=== PATIENT | male | born 1945 | race Caucasian/White ===

== ENCOUNTER 2016-10-29 15:29 | Emergency (ER) | payer MEDICAID, OTHER ==
[~2016-10-29] VITALS: Ht 172.7 cm; Wt 68.0 kg
--- NOTE | 2016-10-29 15:19 | Emergency Room Report ---
History of Present Illness General Source: Patient, EMS Present Illness HPI Patient is a 71-year-old male sent by [facility] for increased altered level consciousness. Patient prior history of seizure disorder as well as psychosis. Patient was noted to have decreased level consciousness. Patient previously had laboratory testing done which was notable for elevated white blood count as well as evidence of some urinary tract infection. Patient's chronic indwelling San catheter . The patient was brought in by EMS. EKG was performed by EMS which showed tachycardia with a rate in the 120s. The patient was noted to be reportedly less active than previously. Allergies: Coded Allergies: NO KNOWN DRUG ALLERGIES (Unverified Allergy, Unknown, 04/11/14) Patient History Past Medical History: see triage record Reviewed Nursing Documentation: PMH: Agreed, PSxH: Agreed Review of Systems All Other Systems: limited - by mental status Physical Exam Sp02 EP Interpretation: reviewed, normal General Appearance: normal inspection, well appearing, alert, Chronically Ill Head: atraumatic ENT: normal ENT inspection, hearing grossly normal, normal voice Neck: normal inspection, full range of motion, supple, no bony tend Respiratory: normal inspection, lungs clear, normal breath sounds, no respiratory distress, no retraction, no wheezing Cardiovascular #1: regular rate, rhythm, no edema Gastrointestinal: normal inspection, normal bowel sounds, non tender, soft, no guarding, no hernia Genitourinary: no CVA tenderness Musculoskeletal: normal inspection, back normal, normal range of motion Neurologic: normal inspection, alert, responsive, speech normal Psychiatric: normal inspection, judgement/insight normal, mood/affect normal Skin: normal inspection, normal color, no rash Medical Decision Making Diagnostic Impression: Primary Impression: Acute renal insufficiency Additional Impressions: UTI (urinary tract infection) Hyperkalemia ER Course Patient presented for fever. Differential diagnosis included wasn't limited to pneumonia, urinary tract infection, drug fever, allergic reaction, sepsis, cholecystitis, among others.Because of complexity of patient's case laboratory testing and imaging studies were ordered. Laboratory testing was present performed which showed elevated white blood count as well as evidence of urinary tract infection. Patient started on IV antibiotics. The patient given IV fluids.The patient noted have elevated potassium as well as BUN/creatinine. Patient was given Kayexalate by mouth as well as IV calcium. I EKG showed normal sinus rhythm without acute ST or T wave changes. QTC was 457 there is no QRS widening or Twave changes. Labs Test 10/29/16 15:30 10/29/16 16:10 Urine Color Pale yellow Urine Appearance Cloudy Urine pH 8 (4.5-8.0) Urine Specific [place] 1.015 (1.005-1.035) Urine Protein 4+ (NEGATIVE) Urine Glucose (UA) 1+ (NEGATIVE) Urine Ketones Negative (NEGATIVE) Urine Occult Blood 5+ (NEGATIVE) Urine Nitrite Negative (NEGATIVE) Urine Bilirubin Negative (NEGATIVE) Urine Urobilinogen Normal MG/DL (0.0-1.0) Urine Leukocyte Esterase 3+ (NEGATIVE) Urine RBC 40-60 /HPF (0 - 0) Urine WBC 60-80 /HPF (0 - 0) Urine Squamous Epithelial Cells None /LPF (NONE/OCC) Urine Amorphous Sediment Few /LPF (NONE) Urine Bacteria Many /HPF (NONE) White Blood Count 21.5 K/UL (4.8-10.8) Red Blood Count 4.39 M/UL (4.70-6.10) Hemoglobin 12.8 G/DL (14.2-18.0) Hematocrit 39.7 % (42.0-52.0) Mean Corpuscular Volume 90 FL (80-99) Mean Corpuscular Hemoglobin 29.2 PG (27.0-31.0) Mean Corpuscular Hemoglobin Concent 32.3 G/DL (32.0-36.0) Red Cell Distribution Width 11.5 % (11.6-14.8) Platelet Count 756 K/UL (150-450) Mean Platelet Volume 5.3 FL (6.5-10.1) Neutrophils (%) (Auto) % (45.0-75.0) Lymphocytes (%) (Auto) % (20.0-45.0) Monocytes (%) (Auto) % (1.0-10.0) Eosinophils (%) (Auto) % (0.0-3.0) Basophils (%) (Auto) % (0.0-2.0) Differential Total Cells Counted 100 Neutrophils % (Manual) 76 % (45-75) Lymphocytes % (Manual) 6 % (20-45) Monocytes % (Manual) 4 % (1-10) Eosinophils % (Manual) 0 % (0-3) Basophils % (Manual) 0 % (0-2) Band Neutrophils 14 % (0-8) Platelet Estimate Increased Platelet Morphology Normal Red Blood Cell Morphology Normal Sodium Level 133 mEQ/L (135-145) Potassium Level 6.5 mEQ/L (3.4-4.9) Chloride Level 97 mEQ/L (98-107) Carbon Dioxide Level 17 mEQ/L (20-30) Anion Gap 19 (5-15) Blood Urea Nitrogen 102 mg/dL (7-23) Creatinine 4.8 mg/dL (0.7-1.2) Estimat Glomerular Filtration Rate 12.1 mL/min (>60) Glucose Level 257 mg/dL (74-106) Lactic Acid Level 1.80 mmol/L (0.66-2.22) Calcium Level 9.3 mg/dL (8.6-10.2) Total Bilirubin 0.2 mg/dL (0.0-1.2) Aspartate Amino Transf (AST/SGOT) 19 U/L (5-40) Alanine Aminotransferase (ALT/SGPT) 5 U/L (3-41) Alkaline Phosphatase 152 U/L (40-129) Total Creatine Kinase 42 U/L (38-174) Creatine Kinase MB 2.4 ng/mL (< 6.7) Creatine Kinase MB Relative Index 5.7 Troponin I < 0.30 ng/mL (<=0.30) Total Protein 7.4 g/dL (6.6-8.7) Albumin 3.2 g/dL (3.5-5.2) Globulin 4.2 g/dL Albumin/Globulin Ratio 0.7 (1.0-2.7) EKG Diagnostic Results Rate: normal Rhythm: NSR ST Segments: no acute changes Rhythm Strip Diag. Results EP Interpretation: yes Rhythm: NSR, no PVC's Status: improved Disposition: XFER SHT-TRM HOSP Condition: Serious Avel Huerta Oct 29, 2016 15:19
[2016-10-29] MEDS ORDERED: Cefepime HCl 1 GM in NS 55 ML IV SCH (15:30)
[2016-10-29] MEDS ORDERED: metroNIDAZOLE 500mg 100 ML IVPB ONE (15:30)
[2016-10-29 16:10] LABS: APPEARANCE,URINE CLOUDY; KETONES,URINE NEGATIVE (NEGATIVE); LEUKOCYTE ESTERASE ,URINE 3+ (NEGATIVE); NITRITE,URINE NEGATIVE (NEGATIVE); PH,URINE 8 (4.5-8.0); PROTEIN,URINE 4+ (NEGATIVE); UROBILINOGEN,URINE NORMAL MG/DL (0.0-1.0)
[2016-10-29] MEDS ORDERED: Cefepime 1gm vial ONE (16:11)
[2016-10-29 16:26] VITALS: BP 139/98
[2016-10-29] MEDS ORDERED: PRO-STAT LIQUID30 ML ORAL (16:32)
[2016-10-29] MEDS ORDERED: METOPROLOL TART25 MG ORAL (16:32)
[2016-10-29] MEDS ORDERED: DILANTIN100 MG ORAL (16:32)
[2016-10-29] MEDS ORDERED: CATAPRES0.1 MG ORAL (16:32)
[2016-10-29] MEDS ORDERED: NEPHRO-VITE RX1 EAC1 PO (16:32)
[2016-10-29] MEDS ORDERED: BENZTROPINE MESY1 MG PO (16:32)
[2016-10-29] MEDS ORDERED: NUEDEXTA 20-101 EAC1 PO (16:32)
[2016-10-29] MEDS ORDERED: TAMSULOSIN HCL0.4 MG ORAL (16:32)
[2016-10-29] MEDS ORDERED: ARICEPT10 MG ORAL (16:32)
[2016-10-29] MEDS ORDERED: BENEPROTEIN1 EACH PO (16:32)
[2016-10-29] MEDS ORDERED: AMLODIPINE BESY10 MG ORAL (16:32)
[2016-10-29] MEDS ORDERED: COLACE100 MG ORAL (16:32)
[2016-10-29] MEDS ORDERED: ACETAMINOPHEN325 M1 ORAL (16:32)
[2016-10-29] MEDS ORDERED: SINEMET 25-1001 EAC1 ORAL (16:32)
[2016-10-29] MEDS ORDERED: PRAVACHOL40 MG ORAL (16:32)
[2016-10-29] MEDS ORDERED: LANTUS SOL100 UNIT/1 SUBQ (16:32)
[2016-10-29] MEDS ORDERED: HUMALOG100 UNIT/4 SUBQ (16:32)
[2016-10-29] MEDS ORDERED: PROSCAR5 MG ORAL (16:32)
[2016-10-29 16:41] LABS: AMORPHOUS SEDIMENT,UR FEW /LPF; BACTERIA,URINE MANY /HPF; RBC,URINE 40-60 /HPF (0 - 0); WBC,URINE 60-80 /HPF (0 - 0)
[2016-10-29 16:44] LABS: MEAN CORPUSCULAR HEMOGLOBIN 29.2 PG (27.0-31.0); MEAN CORPUSCULAR HGB CONC 32.3 G/DL (32.0-36.0); MEAN CORPUSCULAR VOLUME 90 FL (80-99); MEAN PLATELET VOLUME 5.3 FL (6.5-10.1); PLATELET COUNT 756 K/UL (150-450); RED BLOOD COUNT 4.39 M/UL (4.70-6.10); RED CELL DISTRIBUTION WIDTH 11.5 % (11.6-14.8); WHITE BLOOD COUNT 21.5 K/UL (4.8-10.8)
[2016-10-29 16:55] LABS: TROPONIN I < 0.30 ng/mL (<=0.30)
[2016-10-29 16:58] LABS: ALBUMIN/GLOBULIN RATIO 0.7 (1.0-2.7); CALCIUM 9.3 mg/dL (8.6-10.2); CREATININE 4.8 mg/dL (0.7-1.2); GLOMERULAR FILTRATION RATE 12.1 mL/min (>60); TOTAL PROTEIN 7.4 g/dL (6.6-8.7)
[2016-10-29 17:00] LABS: POTASSIUM 6.5 mEQ/L (3.4-4.9)
[2016-10-29 17:08] LABS: CKMB 2.4 ng/mL (< 6.7)
[2016-10-29] MEDS ORDERED: Sodium Bicarbonate 50ml Carp IV ONE (17:30)
[2016-10-29] MEDS ORDERED: Calcium Gluconate 1gm/10ml vial IVP ONE (17:30)
[2016-10-29] MEDS ORDERED: Sodium Polystyrene Sulfonate 15gm Powder ORAL ONE (17:30)
[2016-10-29 17:35] LABS: BAND NEUTROPHILS % (MANUAL) 14 % (0-8); LYMPHOCYTES % (MANUAL) 6 % (20-45); NEUTROPHILS % (MANUAL) 76 % (45-75); PLATELET MORPHOLOGY NORMAL; TOTAL CELLS COUNTED 100
[2016-10-29 17:36] LABS: BASOPHILS % (MANUAL) 0 % (0-2); EOSINOPHILS % (MANUAL) 0 % (0-3); PLATELET ESTIMATE INCREASED
[2016-10-29 18:15] VITALS: BP 126/62
[2016-10-29 19:38] VITALS: BP 123/63
--- NOTE | 2016-11-02 18:36 | Cardiology Report ---
APPROVED REPORT EKG Measurement Heart [id number] VA [id number] [id number] Sinus tachycardia Left axis deviation Nonspecific ST and T wave abnormality Abnormal ECG
== END 2016-10-29 19:08 | disposition short-term general hospital (02) ==
LOC: EDBD 15:29 → EMR 16:07
DX: N28.9 Disorder of kidney and ureter, unspecified (principal); N39.0 Urinary tract infection, site not specified; E87.5 Hyperkalemia
CPT/HCPCS: 36415; 71010; 80053; 81003; 82550; 82553; 83605; 84484; 85007; 85025; 87040; 87086; 87181; 93005; 96374; 96375; 99285; J0610

== ENCOUNTER 2018-05-17 20:59 | Inpatient (IN) | payer MEDICARE, MEDICAID ==
[~2018-05-17] VITALS: Ht 167.6 cm; Wt 77.7 kg
[~2018-05-17 20:59] MED LIST: ACETAMINOPHEN325 M1 ORAL; AMLODIPINE BESY10 MG ORAL; ARICEPT10 MG ORAL; BENEPROTEIN1 EACH PO; BENZTROPINE MESY1 MG PO; CATAPRES0.1 MG ORAL; COLACE100 MG ORAL; DILANTIN100 MG ORAL; HUMALOG100 UNIT/4 SUBQ; LANTUS SOL100 UNIT/1 SUBQ; METOPROLOL TART25 MG ORAL; NEPHRO-VITE RX1 EAC1 PO; NUEDEXTA 20-101 EAC1 PO; PRAVACHOL40 MG ORAL; PRO-STAT LIQUID30 ML ORAL; PROSCAR5 MG ORAL; SINEMET 25-1001 EAC1 ORAL; TAMSULOSIN HCL0.4 MG ORAL
[2018-05-17 21:09] VITALS: BP 160/78
--- NOTE | 2018-05-17 21:12 | NUR ---
ED Nurse Note: Pt needs San cath replacement. no abnormalities noted on penis. bladder is not distended and not palpable. pt vital signs is stable, pt O2 is 99% on room air.
[2018-05-17] MEDS ORDERED: LORazepam Inj 2mg/ml 1ml IV ONE (21:45)
--- NOTE | 2018-05-17 22:10 | NUR ---
ED Nurse Note: Unable to insert weathers x 2; last one with Coude.
--- NOTE | 2018-05-17 22:11 | Emergency Room Report ---
History of Present Illness General Chief Complaint: Male Urogenital Problems Source: Patient, Medical Record, EMS Present Illness HPI This is a 73-year-old male with psychiatric history and BPH. He was sent in for urinary retention. correction unable to pass a San because of obstructive process. He had a history of gross hematuria before. Patient denies any symptom. History is limited on this patient because of his psychiatric issue. He denies any pain. Denies any fever chills. Denies any nausea or vomiting. Allergies: Coded Allergies: NO KNOWN DRUG ALLERGIES (Unverified Allergy, Unknown, 04/11/14) Patient History Past Medical History: see triage record, old chart reviewed, HTN, seizures Past Surgical History: other Pertinent Family History: none Social History: Denies: smoking Immunizations: other Reviewed Nursing Documentation: PMH: Agreed; PSxH: Agreed Nursing Documentation-PMH Hx Hypertension: Yes Hx COPD: Yes Hx Diabetes: Yes Hx Neurological Problems: Yes - Parkinsons disease Hx Seizures: Yes - epilepsy Review of Systems Eye: Denies: eye pain, blurred vision ENT: Denies: ear pain, nose congestion, throat swelling Respiratory: Denies: cough, shortness of breath Cardiovascular: Denies: chest pain, palpitations Gastrointestinal: Denies: abdominal pain, diarrhea, nausea, vomiting Genitourinary: Reports: retention Musculoskeletal: Denies: back pain, joint pain Skin: Denies: rash Neurological: Denies: headache, numbness Endocrine: Denies: increased thirst, increased urine Hematologic/Lymphatic: Denies: easy bruising All Other Systems: negative except mentioned in HPI Physical Exam Vital Signs Date Time Temp Pulse Resp B/P (MAP) Pulse Ox O2 Delivery O2 Flow Rate FiO2 05/17/18 21:03 98.6 88 18 173/79 95 Room Air vitals with high blood pressure Sp02 EP Interpretation: reviewed, normal General Appearance: well appearing, no apparent distress, alert Head: normocephalic, atraumatic Eyes: bilateral eye PERRL, bilateral eye EOMI ENT: hearing grossly normal, normal pharynx Neck: full range of motion, supple, no meningismus Respiratory: chest non-tender, lungs clear, normal breath sounds Cardiovascular #1: regular rate, rhythm, no murmur Gastrointestinal: normal bowel sounds, non tender, no mass, no organomegaly, no bruit, non-distended Musculoskeletal: back normal, gait/station normal, normal range of motion Psychiatric: mood/affect normal Skin: warm/dry Medical Decision Making Diagnostic Impression: Primary Impression: Acute urinary retention Additional Impressions: Prostate hypertrophy CKD (chronic kidney disease) Qualified Codes: N18.9 - Chronic kidney disease, unspecified ER Course Patient presents with urinary retention. Probably secondary to large prostate. Nursing staff here try several times and nitrites over time placing a San with different size and coud also. This was unsuccessful. Patient does not appear to be any distress. I condom catheter was placed. Patient will be admitted for urology consult. I discussed the case with Dr. Brown's group for admission. Last Vital Signs Date Time Temp Pulse Resp B/P (MAP) Pulse Ox O2 Delivery O2 Flow Rate FiO2 05/17/18 21:09 98.6 68 18 160/78 95 Room Air Status: improved Disposition: ADMITTED INPATIENT Condition: Serious Remi Norris MD May 17, 2018 22:11
[2018-05-17 22:50] LABS: BASOPHILS % (AUTO) 1.5 % (0.0-2.0); EOSINOPHILS % (AUTO) 5.5 % (0.0-3.0); HEMATOCRIT 32.2 % (42.0-52.0); HEMOGLOBIN 10.7 G/DL (14.2-18.0); LYMPHOCYTES % (AUTO) 16.1 % (20.0-45.0); MEAN CORPUSCULAR VOLUME 92 FL (80-99); MONOCYTES % (AUTO) 10.4 % (1.0-10.0); NEUTROPHILS % (AUTO) 66.5 % (45.0-75.0); PLATELET COUNT 318 K/UL (150-450); RED BLOOD COUNT 3.48 M/UL (4.70-6.10); RED CELL DISTRIBUTION WIDTH 12.7 % (11.6-14.8); WHITE BLOOD COUNT 10.9 K/UL (4.8-10.8)
[2018-05-17 22:56] VITALS: BP 155/73
[2018-05-17 22:58] LABS: ANION GAP 12 mmol/L (5-15); BLOOD UREA NITROGEN 73 mg/dL (7-18); CALCIUM 7.7 MG/DL (8.5-10.1); CARBON DIOXIDE 19 MMOL/L (21-32); CHLORIDE 102 MMOL/L (98-107); CREATININE 2.5 MG/DL (0.55-1.30); POTASSIUM 4.6 MMOL/L (3.5-5.1); SODIUM 133 MMOL/L (136-145)
--- NOTE | 2018-05-17 23:00 | NUR ---
ED Nurse Note: pt became verbally abusive while MD and RN tried inserting folly and coude catherter. pt stated, "what the fuck are you guys doing?" MD and RN attempt unsucessful. MD ordered condom catherter. Pt is alert and oriented to person but is able to respond to questions and follow commands. no abnormalities noted to skin. pt is able to move all extremities with no complications. abdominal area appears to be distended, MD is aware. RN will continue to reassess output for urine.
[2018-05-18] VITALS (7 sets, daily range): BP systolic 135–160; BP diastolic 70–89
[2018-05-18] MEDS ORDERED: COLACE100 MG ORAL (00:50)
[2018-05-18] MEDS ORDERED: DEPAKOTE125 MG PO (00:51)
[2018-05-18] MEDS ORDERED: DILANTIN100 MG ORAL (00:52)
[2018-05-18] MEDS ORDERED: TAMSULOSIN HCL0.4 MG ORAL (00:53)
[2018-05-18] MEDS ORDERED: LANTUS SOL100 UNIT/1 SUBQ (00:54)
[2018-05-18] MEDS ORDERED: METOPROLOL-HCT1 EAC3 ORAL (00:55)
[2018-05-18] MEDS ORDERED: NOVOLIN 70100 UNIT/1 SUBQ (00:56)
[2018-05-18] MEDS ORDERED: RENA-VITE TABL0.8 M1 PO (00:57)
[2018-05-18] MEDS ORDERED: RESOURCE 2.0237 ML PO (00:58)
--- NOTE | 2018-05-18 02:31 | NUR ---
ED Nurse Note: pt is transfered to MED SURG with PARAM ORDONEZ. pt status, condition and vital signs is reported to ERMD and receving RN. pt is stable for transfer. pt transfered with all belongings.
--- NOTE | 2018-05-18 03:30 | NUR ---
NURSE NOTES: Received patient from ER via gurney, no s/s acute distress noted. Pt is awake and alert to name, able to answer questions, and follows command but confused at times. Noted condom catheter with hematuria. Pt denies any pain or discomfort. Skin is intact. Seizure and fall precaution initiated. Educated to use call light for assistance. Paged Dr Alejandro for admit order.
[2018-05-18] MEDS: NovoLOG Insulin Flexpen SUBQ SCH ×4 (06:20→20:45)
--- NOTE | 2018-05-18 06:35 | NUR ---
NURSE NOTES: Noted kermit urine output 300ml on condom catheter. Post void residual done, showed 350ml. Made MD aware.
--- NOTE | 2018-05-18 07:20 | NUR ---
HAND-OFF: Report given to Marge VIRGEN.
--- NOTE | 2018-05-18 07:50 | NUR ---
NURSE NOTES: Patient received in stable condition, breathing unlabored on room air. No catheter insertion necessary per Dr. Deshpande. Seizure precaution and safety precautions maintained. IV site on right arm patent and intact. Call light placed within reach, bed locked in low position, will continue to monitor.
[2018-05-18] MEDS ORDERED: Tamsulosin 0.4mg cap ORAL SCH ×2 (08:15→21:00)
[2018-05-18] MEDS: Docusate 100mg cap ORAL SCH (08:36)
[2018-05-18] MEDS: Phenytoin 100mg cap ORAL SCH ×3 (08:36→18:02)
[2018-05-18] MEDS: Benztropine 1mg tab ORAL SCH ×2 (08:37→18:02)
[2018-05-18] MEDS: Metoprolol 25mg tab ORAL SCH ×2 (08:37→20:41)
[2018-05-18] MEDS: Levodopa/Carbidopa 25/100 tab ORAL SCH ×3 (08:37→18:02)
[2018-05-18] MEDS: Piperacillin/Tazobactam 3.375 GM in D5W 110 ML IVPB SCH ×2 (12:09→23:34)
--- NOTE | 2018-05-18 15:15 | Consultation ---
DATE OF CONSULTATION: 05/18/2018 CONSULTING PHYSICIAN: Pio Deshpande M.D. REFERRING PHYSICIAN: Anthony Alejandro M.D. REASON FOR CONSULTATION: Evaluation of hematuria. HISTORY OF PRESENT ILLNESS: This is a 73-year-old male with extensive psychiatric history. He is a resident of a alf. Apparently, there were some issues with urinary retention and difficulty placing a San catheter. The patient was referred to the emergency room. He was noted to have some hematuria and I am not sure if this is because of San trauma, but they were not able to place San and Urology evaluation was requested. Currently, the patient is on the floor. He looks comfortable. He has been voiding. His urine is clearing. He had a condom catheter. I am not able to get any of the history from him. PAST MEDICAL HISTORY: Again significant for psychiatric issues, hypertension, COPD, diabetes, Parkinson's, and seizure disorder. PAST SURGICAL HISTORY: Unknown. MEDICATIONS: Medications are Pravachol, Flomax, Norvasc, Cogentin, Sinemet, Colace, Proscar, Lopressor, Dilantin, and insulin. ALLERGIES: No known drug allergies. FAMILY HISTORY: Unable to obtain. REVIEW OF SYSTEMS: Unable to obtain. PHYSICAL EXAMINATION: GENERAL: Elderly male, confused. VITAL SIGNS: Temperature is 97.6 and blood pressure is 165/74. HEENT: Normocephalic. NECK: Supple. ABDOMEN: Soft. There is minimal suprapubic fullness. LABORATORY DATA: White count is 10.9, hemoglobin 10.7, BUN is 72, creatinine 2.5, and potassium 4.6. There is no urinalysis. There is no renal imaging study. IMPRESSION: 1. Urinary retention history. 2. BPH history. 3. Neurogenic bladder. 4. Hematuria. 5. Acute kidney injury. 6. Probable chronic kidney disease. PLAN: I did evaluate the patient at the bedside. I did a bladder scan by myself and the PVR was 209 mL. He did have a condom catheter with the urine in the bag, basically clearing. The patient is very confused. He has psychiatric history. I do not recommend placing a San at this time because most likely, he will pull it out. His residuals are acceptable. I would continue with Flomax and increase it to b.i.d. I also continue with finasteride. I will also add antibiotics in case there is a component of prostatitis. We can consider renal imaging study and cystoscopy in the future. The case was discussed with Dr. Alejandro. Thank you for this consultation. Pio Deshpande M.D. DR: KEVIN JOB#: [id number] CC:
[2018-05-18] MEDS: Tamsulosin 0.4mg cap ORAL SCH (18:02)
--- NOTE | 2018-05-18 19:36 | NUR ---
HAND-OFF: Report given to Caridad VIRGEN.
--- NOTE | 2018-05-18 19:48 | NUR ---
NURSE NOTES: Patient in bed asleep, easily arousable to name, no s/s distress noted. Bed in lowest position for safety. Call light within reach.
[2018-05-18 20:06] LABS: APPEARANCE,URINE CLOUDY; BILIRUBIN, URINE NEGATIVE (NEGATIVE); COLOR,URINE PALE YELLOW; GLUCOSE, URINE (UA) NEGATIVE (NEGATIVE); KETONES,URINE NEGATIVE (NEGATIVE); LEUKOCYTE ESTERASE ,URINE 3+ (NEGATIVE); NITRITE,URINE POSITIVE (NEGATIVE); PH,URINE 5 (4.5-8.0); PROTEIN,URINE 4+ (NEGATIVE); UROBILINOGEN,URINE NORMAL MG/DL (0.0-1.0)
--- NOTE | 2018-05-18 23:30 | History and Physical Report ---
DATE OF ADMISSION: 05/18/2018 CHIEF COMPLAINT: Hematuria. HISTORY OF PRESENT ILLNESS: The patient is a 73-year-old male. He has a history of dementia, psychosis, diabetes, and hypertension. He was transferred from a long-term facility with complaints of hematuria. The patient apparently has a history of MS. He is confused at baseline. He is unable to provide any history. On evaluation in the emergency room, the patient was noted to have bright red blood in his urinalysis. The ER physician attempted to place a San catheter, but this was unsuccessful. A condom catheter was placed. The patient has . He is now admitted for further evaluation for hematuria. PAST MEDICAL HISTORY: As above. He has a history of Parkinson disease, questionable MS, and questionable seizure disorder. CURRENT MEDICATIONS: Reconciled and reviewed. ALLERGIES: None. FAMILY HISTORY: None. SOCIAL HISTORY: There is no known history of tobacco, ethanol, or drugs. REVIEW OF SYSTEMS: From the patient is unobtainable as he is confused. PHYSICAL EXAMINATION: VITAL SIGNS: Temperature 98, pulse 72, respirations 15, and blood pressure 135/70. GENERAL: The patient is well-developed male, in apparent distress. He is currently resting. NECK: Supple. HEART: Regular rate and rhythm. LUNGS: Clear. ABDOMEN: Soft, nontender, and nondistended. EXTREMITIES: Without clubbing, cyanosis, or edema. NEUROLOGIC: The patient is unable to comply with neurologic exam. LABORATORY DATA: White count 11, hemoglobin 10, hematocrit 32, platelet count 318,000. Sodium 138, potassium 4.6, chloride 103, bicarb 19, BUN 73, and creatinine 2.5. A1c was 7.6. ASSESSMENT: This is an elderly male with a history of psychosis, , questionable MS, hypertension, diabetes, hematuria, suspect due to urinary tract infection. PLAN: Urology consultation. monitor urine output. Empiric antibiotic therapy. Follow up urine studies. Continue outpatient seizure regimen. Anxiolytics as needed. Anthony Alejandro M.D. DR: CAITY JOB#: [id number] CC:
[2018-05-19] VITALS: BP 127/77
[2018-05-19 04:00] VITALS: BP 130/77
[2018-05-19] MEDS: NovoLOG Insulin Flexpen SUBQ SCH ×4 (06:30→21:04)
--- NOTE | 2018-05-19 07:20 | NUR ---
HAND-OFF: Report given to Marge VIRGEN.
--- NOTE | 2018-05-19 07:26 | General Progress Note ---
Assessment/Plan Problem List: (1) CKD (chronic kidney disease) ICD Codes: N18.9 - Chronic kidney disease, unspecified SNOMED: 563084489 Qualifiers: Qualified Codes: N18.9 - Chronic kidney disease, unspecified (2) Prostate hypertrophy ICD Codes: N40.0 - Benign prostatic hyperplasia without lower urinary tract symptoms SNOMED: 237871781 (3) Acute renal insufficiency ICD Codes: N28.9 - Disorder of kidney and ureter, unspecified SNOMED: 46859806 (4) Leukocytosis ICD Codes: D72.829 - Elevated white blood cell count, unspecified SNOMED: 894613138 (5) UTI (urinary tract infection) ICD Codes: N39.0 - Urinary tract infection, site not specified SNOMED: 37200758 (6) Acute hyponatremia ICD Codes: E87.1 - Hypo-osmolality and hyponatremia SNOMED: 8099027 (7) Hematuria, gross ICD Codes: R31.0 - Gross hematuria SNOMED: 107058915 (8) Acute urinary retention ICD Codes: R33.8 - Other retention of urine SNOMED: 524910094 Status: stable, progressing Assessment/Plan iv abx follow up cultures monitor for bleeding scd Subjective ROS Limited/Unobtainable: No Constitutional: Reports: malaise, weakness HEENT: Reports: no symptoms Cardiovascular: Reports: no symptoms Respiratory: Reports: no symptoms Gastrointestinal/Abdominal: Reports: no symptoms Genitourinary: Reports: hematuria Neurologic/Psychiatric: Reports: anxiety Endocrine: Reports: no symptoms Hematologic/Lymphatic: Reports: no symptoms Allergies: Coded Allergies: NO KNOWN DRUG ALLERGIES (Unverified Allergy, Unknown, 04/11/14) All Systems: reviewed and negative except above Subjective no events. no more bleeding. UA with tntc wbc Objective Last 24 Hour Vital Signs Date Time Temp Pulse Resp B/P (MAP) Pulse Ox O2 Delivery O2 Flow Rate FiO2 05/19/18 04:00 98.1 71 18 130/77 (94) 98 05/19/18 00:00 98.6 98 18 127/77 (94) 95 05/18/18 21:00 Room Air 05/18/18 20:41 78 152/89 05/18/18 20:00 98.9 78 18 152/89 (110) 96 05/18/18 16:00 97.6 80 20 155/86 (109) 98 05/18/18 12:00 97.1 75 19 160/89 (112) 97 05/18/18 09:00 Room Air 05/18/18 08:37 86 155/74 05/18/18 08:36 86 155/74 05/18/18 08:00 97.9 81 20 142/77 (98) 99 Intake and Output 05/18/18 05/19/18 19:00 07:00 Intake Total 860 ml 470.0 ml Output Total 950 ml Balance 860 ml -480.0 ml Intake Oral 860 ml 360 ml IV Total 110.0 ml Output Urine Total 950 ml # Voids 7 # Bowel Movements 1 Laboratory Tests 05/18/18 08:00: Hemoglobin A1c 7.6H 05/18/18 18:15: Urine Color Pale yellow, Urine Appearance Cloudy, Urine pH 5, Urine Specific [place] 1.015, Urine Protein 4+H, Urine Glucose (UA) Negative, Urine Ketones Negative, Urine Blood 3+H, Urine Nitrite PositiveH, Urine Bilirubin Negative, Urine Urobilinogen Normal, Urine Leukocyte Esterase 3+H, Urine RBC 0-2H, Urine WBC TntcH, Urine Squamous Epithelial Cells None, Urine Bacteria ManyH Height (Feet): 5 Height (Inches): 6.00 Weight (Pounds): 171 General Appearance: WD/WN, alert Neck: supple Cardiovascular: regular rhythm Respiratory/Chest: lungs clear Abdomen: normal bowel sounds, non tender, soft, no organomegaly Edema: no edema noted Arm (L), no edema noted Arm (R), no edema noted Leg (L), no edema noted Leg (R), no edema noted Pedal (L), no edema noted Pedal (R), no edema noted Generalized Neurologic: alert Anthony Alejandro MD May 19, 2018 07:26
--- NOTE | 2018-05-19 07:42 | NUR ---
NURSE NOTES: Patient received in stable condition, sleeping in bed. Breathing unlabored on room air, no s/s of respiratory distress or pain observed. IV patent and intact on right arm. Voiding freely with condom catheter. Bed locked in lowest position, seizure precautions maintained. Call light placed within reach, will continue to monitor.
[2018-05-19 08:00] VITALS: BP 160/87
[2018-05-19] MEDS: Benztropine 1mg tab ORAL SCH ×2 (08:53→17:01)
[2018-05-19] MEDS: Phenytoin 100mg cap ORAL SCH ×3 (08:53→17:01)
[2018-05-19] MEDS: Metoprolol 25mg tab ORAL SCH ×2 (08:53→21:01)
[2018-05-19] MEDS: Tamsulosin 0.4mg cap ORAL SCH ×2 (08:54→17:01)
[2018-05-19] MEDS: Levodopa/Carbidopa 25/100 tab ORAL SCH ×3 (08:54→17:01)
[2018-05-19] MEDS: Docusate 100mg cap ORAL SCH (08:54)
--- NOTE | 2018-05-19 10:12 | Urology Progress Note ---
Assessment/Plan Assessment/Plan 1. Urinary retention history. 2. BPH history. 3. Neurogenic bladder. 4. Hematuria. 5. Acute kidney injury. 6. Probable chronic kidney disease. 7. Possible chronic prostatitis. monitor clinically cont flomax bid and proscar abx as ordered would prefer to avoid weathers cysto later consider renal imaging study monitor renal fxn Subjective Allergies: Coded Allergies: NO KNOWN DRUG ALLERGIES (Unverified Allergy, Unknown, 04/11/14) Subjective all noted, pt has been voiding, urine grossly yellow by report Objective Last 24 Hour Vital Signs Date Time Temp Pulse Resp B/P (MAP) Pulse Ox O2 Delivery O2 Flow Rate FiO2 05/19/18 09:00 Room Air 05/19/18 08:54 71 130/77 05/19/18 08:53 71 130/77 05/19/18 08:00 97.9 70 19 160/87 (111) 99 05/19/18 04:00 98.1 71 18 130/77 (94) 98 05/19/18 00:00 98.6 98 18 127/77 (94) 95 05/18/18 21:00 Room Air 05/18/18 20:41 78 152/89 05/18/18 20:00 98.9 78 18 152/89 (110) 96 05/18/18 16:00 97.6 80 20 155/86 (109) 98 05/18/18 12:00 97.1 75 19 160/89 (112) 97 Intake and Output 05/18/18 05/19/18 19:00 07:00 Intake Total 860 ml 470.0 ml Output Total 950 ml Balance 860 ml -480.0 ml Intake Oral 860 ml 360 ml IV Total 110.0 ml Output Urine Total 950 ml # Voids 7 # Bowel Movements 1 Microbiology Date/Time Source Procedure Growth Status 05/18/18 01:08 Rectum Received Current Medications Medications (Trade) Dose Ordered Sig/Thu Route PRN Reason Start Time Stop Time Status Last Admin Dose Admin Acetaminophen (Tylenol) 650 mg EVERY 8 HOURS PRN ORAL For Pain 05/18/18 05:15 06/17/18 05:14 Amlodipine Besylate (Norvasc) 10 mg DAILY ORAL 05/18/18 09:00 06/17/18 08:59 05/19/18 08:54 Benztropine Mesylate (Cogentin) 1 mg BID ORAL 05/18/18 09:00 06/17/18 08:59 05/19/18 08:53 Carbidopa/Levodopa (Sinemet 25/100) 1 tab THREE TIMES A DAY ORAL 05/18/18 09:00 06/17/18 08:59 05/19/18 08:54 Dextrose (Dextrose 50%) 25 ml Q30M PRN IV Hypoglycemia 05/18/18 05:30 06/17/18 05:29 Dextrose (Dextrose 50%) 50 ml Q30M PRN IV Hypoglycemia 05/18/18 05:30 06/17/18 05:29 Docusate Sodium (Colace) 100 mg DAILY ORAL 05/18/18 09:00 06/17/18 08:59 05/19/18 08:54 Doxycycline Monohydrate (Vibramycin) 100 mg EVERY 12 HOURS ORAL 05/18/18 09:00 05/25/18 08:59 05/19/18 08:54 Finasteride (Proscar) 5 mg DAILY ORAL 05/18/18 09:00 06/17/18 08:59 05/19/18 08:54 Insulin Aspart (NovoLOG) BEFORE MEALS AND HS SUBQ 05/18/18 06:30 06/17/18 06:29 05/18/18 20:45 Metoprolol Tartrate (Lopressor) 75 mg EVERY 12 HOURS ORAL 05/18/18 09:00 06/17/18 08:59 05/19/18 08:53 Phenytoin (Dilantin) 100 mg THREE TIMES A DAY ORAL 05/18/18 09:00 06/17/18 08:59 05/19/18 08:53 Piperacillin Sod/ Tazobactam Sod 3.375 gm/Dextrose 110 ml @ 27.5 mls/hr Q12H IVPB 05/18/18 12:00 05/25/18 11:59 05/18/18 23:34 Pravastatin Sodium (Pravachol) 80 mg BEDTIME ORAL 05/18/18 21:00 06/17/18 20:59 05/18/18 20:40 Tamsulosin HCl (Flomax) 0.4 mg TWICE A DAY ORAL 05/18/18 18:00 06/17/18 17:59 05/19/18 08:54 Laboratory Tests 05/18/18 18:15: Urine Color Pale yellow, Urine Appearance Cloudy, Urine pH 5, Urine Specific [place] 1.015, Urine Protein 4+H, Urine Glucose (UA) Negative, Urine Ketones Negative, Urine Blood 3+H, Urine Nitrite PositiveH, Urine Bilirubin Negative, Urine Urobilinogen Normal, Urine Leukocyte Esterase 3+H, Urine RBC 0-2H, Urine WBC TntcH, Urine Squamous Epithelial Cells None, Urine Bacteria ManyH Height (Feet): 5 Height (Inches): 6.00 Weight (Pounds): 171 Objective exam stable Pio Deshpande MD May 19, 2018 10:12
[2018-05-19 12:00] VITALS: BP 139/80
[2018-05-19] MEDS: Piperacillin/Tazobactam 3.375 GM in D5W 110 ML IVPB SCH (12:36)
[2018-05-19 16:00] VITALS: BP 120/86
--- NOTE | 2018-05-19 19:29 | NUR ---
HAND-OFF: Report given to Cherry Gallo.
--- NOTE | 2018-05-19 19:54 | NUR ---
NURSE NOTES: Patient in bed,awake, verbally responsive. IV in place. No s/s respiratory distress noted. No complaints of pain at this time. Bed in lowest position, call light within reach. Will continue to monitor.
[2018-05-19 20:00] VITALS: BP 142/79
--- NOTE | 2018-05-19 20:34 | NUR ---
CASE MANAGEMENT: INITIAL REVIEW 73 YO M YIMI FROM [facility] CC: MALE UROGENITAL PROBLEMS PMHx: COPD. HTN. SZ. SI:URINARY RETENTION. T 98.6 HR 88 RR 18 B/P 173/79 SATS 95% ON RA WBC 10.9 NA 133 CO2 19 BUN 73 CR 2.5 GLUCOSE 184 CA 7.7 IS: ATIVAN IV X1 PATIENT ADMITTED TO MED/SURG 05/18/2018 @ 0107 DCP: PATIENT TO BE DISCHARGED TO SNF ONCE MEDICALLY CLEARED. PLAN OF CARE: UROLOGY CONSULT
[2018-05-20] MEDS: Piperacillin/Tazobactam 3.375 GM in D5W 110 ML IVPB SCH ×3 (00:33→23:41)
[2018-05-20 00:36] VITALS: BP 137/67
[2018-05-20 04:00] VITALS: BP 143/80
--- NOTE | 2018-05-20 06:00 | NUR ---
NURSE NOTES: PATIENT ASLEEP, V/S STABLE.
[2018-05-20] MEDS: NovoLOG Insulin Flexpen SUBQ SCH ×4 (06:07→21:51)
--- NOTE | 2018-05-20 07:23 | NUR ---
HAND-OFF: Report given to RUSH GHOSH RN.
--- NOTE | 2018-05-20 07:25 | NUR ---
NURSE NOTES: Pt received from PARAM Carey alert and oriented x2, requiring frequent reorientation. No s/s of acute distress, advised pt to stay in bed and to use call light to avoid falls, pt verbalized understanding. IV site asymptomatic and patent, on saline lock. Bed in lowest position, call light and belongings within reach.
[2018-05-20 08:00] VITALS: BP 150/85
--- NOTE | 2018-05-20 08:48 | General Progress Note ---
Assessment/Plan Problem List: (1) CKD (chronic kidney disease) ICD Codes: N18.9 - Chronic kidney disease, unspecified SNOMED: 969931048 Qualifiers: Qualified Codes: N18.9 - Chronic kidney disease, unspecified (2) Prostate hypertrophy ICD Codes: N40.0 - Benign prostatic hyperplasia without lower urinary tract symptoms SNOMED: 525586559 (3) Acute renal insufficiency ICD Codes: N28.9 - Disorder of kidney and ureter, unspecified SNOMED: 35571051 (4) Leukocytosis ICD Codes: D72.829 - Elevated white blood cell count, unspecified SNOMED: 441704020 (5) UTI (urinary tract infection) ICD Codes: N39.0 - Urinary tract infection, site not specified SNOMED: 49199332 (6) Acute hyponatremia ICD Codes: E87.1 - Hypo-osmolality and hyponatremia SNOMED: 7334208 (7) Hematuria, gross ICD Codes: R31.0 - Gross hematuria SNOMED: 506407436 (8) Acute urinary retention ICD Codes: R33.8 - Other retention of urine SNOMED: 139091229 Status: stable Assessment/Plan iv abx follow up cultures monitor for bleeding scd can dc on abx once sensitivity back on GNR Subjective ROS Limited/Unobtainable: No Constitutional: Reports: malaise, weakness HEENT: Reports: no symptoms Cardiovascular: Reports: no symptoms Respiratory: Reports: no symptoms Gastrointestinal/Abdominal: Reports: no symptoms Genitourinary: Reports: no symptoms Neurologic/Psychiatric: Reports: anxiety Endocrine: Reports: no symptoms Hematologic/Lymphatic: Reports: anemia Allergies: Coded Allergies: NO KNOWN DRUG ALLERGIES (Unverified Allergy, Unknown, 04/11/14) All Systems: reviewed and negative except above Subjective no events. no more bleeding. UA with tntc wbc. +GNR in urine Objective Last 24 Hour Vital Signs Date Time Temp Pulse Resp B/P (MAP) Pulse Ox O2 Delivery O2 Flow Rate FiO2 05/20/18 04:00 98.0 67 18 143/80 (101) 97 05/20/18 00:36 98.7 69 18 137/67 (90) 97 05/19/18 22:09 Room Air 05/19/18 21:01 79 142/79 05/19/18 20:00 98.4 75 18 142/79 (100) 98 05/19/18 16:00 97.7 86 19 120/86 (97) 97 05/19/18 12:00 98.8 64 18 139/80 (99) 98 05/19/18 09:00 Room Air 05/19/18 08:54 71 130/77 05/19/18 08:53 71 130/77 Intake and Output 05/19/18 05/20/18 19:00 07:00 Intake Total 350 ml 230.0 ml Output Total 400 ml 650 ml Balance -50 ml -420.0 ml Intake Oral 350 ml 120 ml IV Total 110.0 ml Output Urine Total 400 ml 650 ml # Bowel Movements 1 Height (Feet): 5 Height (Inches): 6.00 Weight (Pounds): 171 Objective General Appearance: WD/WN, alert Neck: supple Cardiovascular: regular rhythm Respiratory/Chest: lungs clear Abdomen: normal bowel sounds, non tender, soft, no organomegaly Edema: no edema noted Arm (L), no edema noted Arm (R), no edema noted Leg (L), no edema noted Leg (R), no edema noted Pedal (L), no edema noted Pedal (R), no edema noted Generalized Neurologic: alert Anthony Alejandro MD May 20, 2018 08:48
[2018-05-20] MEDS: Phenytoin 100mg cap ORAL SCH ×3 (08:53→17:29)
[2018-05-20] MEDS: Benztropine 1mg tab ORAL SCH ×2 (08:53→17:28)
[2018-05-20] MEDS: Levodopa/Carbidopa 25/100 tab ORAL SCH ×3 (08:53→17:28)
[2018-05-20] MEDS: Tamsulosin 0.4mg cap ORAL SCH ×2 (08:53→17:29)
[2018-05-20] MEDS: Docusate 100mg cap ORAL SCH (08:53)
[2018-05-20] MEDS: Metoprolol 25mg tab ORAL SCH ×2 (08:54→21:49)
--- NOTE | 2018-05-20 10:57 | Urology Progress Note ---
Assessment/Plan Assessment/Plan 1. Urinary retention history. 2. BPH history. 3. Neurogenic bladder. 4. Hematuria. 5. Acute kidney injury. 6. Probable chronic kidney disease. 7. Possible chronic prostatitis. monitor clinically cont flomax bid and proscar abx as ordered would prefer to avoid weathers cysto later consider renal imaging study monitor renal fxn Subjective Allergies: Coded Allergies: NO KNOWN DRUG ALLERGIES (Unverified Allergy, Unknown, 04/11/14) Subjective all noted, pt has been voiding, urine grossly yellow by report, condom cath Objective Last 24 Hour Vital Signs Date Time Temp Pulse Resp B/P (MAP) Pulse Ox O2 Delivery O2 Flow Rate FiO2 05/20/18 08:54 70 160/85 05/20/18 08:53 70 160/85 05/20/18 04:00 98.0 67 18 143/80 (101) 97 05/20/18 00:36 98.7 69 18 137/67 (90) 97 05/19/18 22:09 Room Air 05/19/18 21:01 79 142/79 05/19/18 20:00 98.4 75 18 142/79 (100) 98 05/19/18 16:00 97.7 86 19 120/86 (97) 97 05/19/18 12:00 98.8 64 18 139/80 (99) 98 Intake and Output 05/19/18 05/20/18 19:00 07:00 Intake Total 350 ml 230.0 ml Output Total 400 ml 650 ml Balance -50 ml -420.0 ml Intake Oral 350 ml 120 ml IV Total 110.0 ml Output Urine Total 400 ml 650 ml # Bowel Movements 1 Microbiology Date/Time Source Procedure Growth Status 05/18/18 01:08 Nasal Nares MRSA Culture - Final NO METHICILLIN RESISTANT STAPH AUREUS... Complete 05/18/18 18:15 Urine,Clean Catch Urine Culture - Preliminary Gram Negative Carlin Resulted 05/18/18 01:08 Rectum - Final NO CARBAPENEM-RESISTANT ENTEROBACTERI... Complete Current Medications Medications (Trade) Dose Ordered Sig/Thu Route PRN Reason Start Time Stop Time Status Last Admin Dose Admin Acetaminophen (Tylenol) 650 mg EVERY 8 HOURS PRN ORAL For Pain 05/18/18 05:15 06/17/18 05:14 Amlodipine Besylate (Norvasc) 10 mg DAILY ORAL 05/18/18 09:00 06/17/18 08:59 05/20/18 08:53 Benztropine Mesylate (Cogentin) 1 mg BID ORAL 05/18/18 09:00 06/17/18 08:59 05/20/18 08:53 Carbidopa/Levodopa (Sinemet 25/100) 1 tab THREE TIMES A DAY ORAL 05/18/18 09:00 06/17/18 08:59 05/20/18 08:53 Dextrose (Dextrose 50%) 25 ml Q30M PRN IV Hypoglycemia 05/18/18 05:30 06/17/18 05:29 Dextrose (Dextrose 50%) 50 ml Q30M PRN IV Hypoglycemia 05/18/18 05:30 06/17/18 05:29 Docusate Sodium (Colace) 100 mg DAILY ORAL 05/18/18 09:00 06/17/18 08:59 05/20/18 08:53 Doxycycline Monohydrate (Vibramycin) 100 mg EVERY 12 HOURS ORAL 05/18/18 09:00 05/25/18 08:59 05/20/18 08:53 Finasteride (Proscar) 5 mg DAILY ORAL 05/18/18 09:00 06/17/18 08:59 05/20/18 08:54 Insulin Aspart (NovoLOG) BEFORE MEALS AND HS SUBQ 05/18/18 06:30 06/17/18 06:29 05/19/18 21:04 Metoprolol Tartrate (Lopressor) 75 mg EVERY 12 HOURS ORAL 05/18/18 09:00 06/17/18 08:59 05/20/18 08:54 Phenytoin (Dilantin) 100 mg THREE TIMES A DAY ORAL 05/18/18 09:00 06/17/18 08:59 05/20/18 08:53 Piperacillin Sod/ Tazobactam Sod 3.375 gm/Dextrose 110 ml @ 27.5 mls/hr Q12H IVPB 05/18/18 12:00 05/25/18 11:59 05/20/18 00:33 Pravastatin Sodium (Pravachol) 80 mg BEDTIME ORAL 05/18/18 21:00 06/17/18 20:59 05/19/18 21:00 Tamsulosin HCl (Flomax) 0.4 mg TWICE A DAY ORAL 05/18/18 18:00 06/17/18 17:59 05/20/18 08:53 Height (Feet): 5 Height (Inches): 6.00 Weight (Pounds): 171 Objective exam stable Pio Deshpande MD May 20, 2018 10:57
[2018-05-20 12:00] VITALS: BP 142/80
[2018-05-20 16:00] VITALS: BP 148/85
--- NOTE | 2018-05-20 19:45 | NUR ---
HAND-OFF: Report given to PARAM Carey.
[2018-05-20 20:00] VITALS: BP 149/79
--- NOTE | 2018-05-20 22:41 | NUR ---
NURSE NOTES: Patient in bed,awake, verbally responsive, alert to name, needs frequent reorientation. Received patient with no IV access, will attempt at a later time. No s/s respiratory distress noted. No complaints of pain at this time. Bed in lowest position, call light within reach. Will continue to monitor.
[2018-05-21] VITALS (7 sets, daily range): BP systolic 135–160; BP diastolic 56–88
[2018-05-21] MEDS: NovoLOG Insulin Flexpen SUBQ SCH ×4 (05:33→21:25)
--- NOTE | 2018-05-21 06:55 | NUR ---
NURSE NOTES: PATIENT REFUSED NEW IV ACCESS YELLING "STOP! GET OUT OF MY ROOM! GO AWAY!" CHARGE NURSE AWARE. LEFT MESSAGE FOR DR. JOSHUA.
--- NOTE | 2018-05-21 07:40 | NUR ---
NURSE NOTES: Received patient on bed, awake. Portcath intact and patent. Bed in low and locked position,c all light in reach. No signs of respiratory distress. Patient complains of pain will give PRN medication. Room board updated, will continue to monitor. Addendum: 05/21/18 at 1935 by TEDDY MCADAMS RN RN Disregard note, wrong patient.
--- NOTE | 2018-05-21 07:40 | NUR ---
NURSE NOTES: Received patient on bed, awake. No IV access. Bed in low and locked position, call light in reach. No signs of respiratory distress or pain. Room board updated, will continue to monitor.
[2018-05-21] MEDS ORDERED: LEVOFLOXACIN250 MG ORAL (08:01)
--- NOTE | 2018-05-21 08:02 | General Progress Note ---
Assessment/Plan Problem List: (1) CKD (chronic kidney disease) ICD Codes: N18.9 - Chronic kidney disease, unspecified SNOMED: 571115755 Qualifiers: Qualified Codes: N18.9 - Chronic kidney disease, unspecified (2) Prostate hypertrophy ICD Codes: N40.0 - Benign prostatic hyperplasia without lower urinary tract symptoms SNOMED: 117751759 (3) Acute renal insufficiency ICD Codes: N28.9 - Disorder of kidney and ureter, unspecified SNOMED: 56980287 (4) Leukocytosis ICD Codes: D72.829 - Elevated white blood cell count, unspecified SNOMED: 654702325 (5) UTI (urinary tract infection) ICD Codes: N39.0 - Urinary tract infection, site not specified SNOMED: 68381512 (6) Acute hyponatremia ICD Codes: E87.1 - Hypo-osmolality and hyponatremia SNOMED: 1242698 (7) Hematuria, gross ICD Codes: R31.0 - Gross hematuria SNOMED: 903397367 (8) Acute urinary retention ICD Codes: R33.8 - Other retention of urine SNOMED: 573116448 Status: stable Assessment/Plan iv abx follow up cultures monitor for bleeding scd dc planning if labs ok po abx at snf Subjective ROS Limited/Unobtainable: No Constitutional: Reports: malaise, weakness HEENT: Reports: no symptoms Cardiovascular: Reports: no symptoms Respiratory: Reports: no symptoms Gastrointestinal/Abdominal: Reports: no symptoms Genitourinary: Reports: no symptoms Neurologic/Psychiatric: Reports: anxiety Endocrine: Reports: no symptoms Hematologic/Lymphatic: Reports: no symptoms Allergies: Coded Allergies: NO KNOWN DRUG ALLERGIES (Unverified Allergy, Unknown, 04/11/14) All Systems: reviewed and negative except above Subjective no events. no more bleeding. UA with tntc wbc. Ucx results noted. Objective Last 24 Hour Vital Signs Date Time Temp Pulse Resp B/P (MAP) Pulse Ox O2 Delivery O2 Flow Rate FiO2 05/21/18 04:58 98.0 77 20 159/83 (108) 98 05/21/18 00:37 98.8 74 20 136/69 (91) 95 05/20/18 22:40 Room Air 05/20/18 21:49 85 149/79 05/20/18 20:00 99.0 85 20 149/79 (102) 96 05/20/18 16:00 97.9 77 20 148/85 (106) 95 05/20/18 12:00 98.6 71 19 142/80 (100) 97 05/20/18 09:00 Room Air 05/20/18 08:54 70 160/85 05/20/18 08:53 70 160/85 Intake and Output 05/20/18 05/21/18 19:00 07:00 Intake Total 690.0 ml Output Total 300 ml 1200 ml Balance 390.0 ml -1200 ml Intake Oral 580 ml IV Total 110.0 ml Output Urine Total 300 ml 1200 ml # Bowel Movements 1 1 Height (Feet): 5 Height (Inches): 6.00 Weight (Pounds): 171 Objective General Appearance: WD/WN, alert Neck: supple Cardiovascular: regular rhythm Respiratory/Chest: lungs clear Abdomen: normal bowel sounds, non tender, soft, no organomegaly Edema: no edema noted Arm (L), no edema noted Arm (R), no edema noted Leg (L), no edema noted Leg (R), no edema noted Pedal (L), no edema noted Pedal (R), no edema noted Generalized Neurologic: alert Anthony Alejandro MD May 21, 2018 08:02
--- NOTE | 2018-05-21 09:19 | Urology Progress Note ---
Assessment/Plan Assessment/Plan 1. Urinary retention history. 2. BPH history. 3. Neurogenic bladder. 4. Hematuria. 5. Acute kidney injury. 6. Probable chronic kidney disease. 7. Possible chronic prostatitis. monitor clinically cont flomax bid and proscar abx as ordered would prefer to avoid weathers cysto later consider renal imaging study monitor renal fxn Subjective Allergies: Coded Allergies: NO KNOWN DRUG ALLERGIES (Unverified Allergy, Unknown, 04/11/14) Subjective all noted, pt has been voiding, urine grossly yellow by report, condom cath Objective Last 24 Hour Vital Signs Date Time Temp Pulse Resp B/P (MAP) Pulse Ox O2 Delivery O2 Flow Rate FiO2 05/21/18 08:00 97.3 71 17 160/88 (112) 98 05/21/18 04:58 98.0 77 20 159/83 (108) 98 05/21/18 00:37 98.8 74 20 136/69 (91) 95 05/20/18 22:40 Room Air 05/20/18 21:49 85 149/79 05/20/18 20:00 99.0 85 20 149/79 (102) 96 05/20/18 16:00 97.9 77 20 148/85 (106) 95 05/20/18 12:00 98.6 71 19 142/80 (100) 97 Intake and Output 05/20/18 05/21/18 18:59 06:59 Intake Total 690.0 ml Output Total 300 ml 1200 ml Balance 390.0 ml -1200 ml Intake Oral 580 ml IV Total 110.0 ml Output Urine Total 300 ml 1200 ml # Bowel Movements 1 1 Microbiology Date/Time Source Procedure Growth Status 05/18/18 01:08 Nasal Nares MRSA Culture - Final NO METHICILLIN RESISTANT STAPH AUREUS... Complete 05/18/18 18:15 Urine,Clean Catch Urine Culture - Preliminary Enterobacter Aerogenes Klebsiella Pneumoniae Resulted 05/18/18 01:08 Rectum - Final NO CARBAPENEM-RESISTANT ENTEROBACTERI... Complete Current Medications Medications (Trade) Dose Ordered Sig/Thu Route PRN Reason Start Time Stop Time Status Last Admin Dose Admin Acetaminophen (Tylenol) 650 mg EVERY 8 HOURS PRN ORAL For Pain 05/18/18 05:15 06/17/18 05:14 Amlodipine Besylate (Norvasc) 10 mg DAILY ORAL 05/18/18 09:00 06/17/18 08:59 05/20/18 08:53 Benztropine Mesylate (Cogentin) 1 mg BID ORAL 05/18/18 09:00 06/17/18 08:59 05/20/18 17:28 Carbidopa/Levodopa (Sinemet 25/100) 1 tab THREE TIMES A DAY ORAL 05/18/18 09:00 06/17/18 08:59 05/20/18 17:28 Dextrose (Dextrose 50%) 25 ml Q30M PRN IV Hypoglycemia 05/18/18 05:30 06/17/18 05:29 Dextrose (Dextrose 50%) 50 ml Q30M PRN IV Hypoglycemia 05/18/18 05:30 06/17/18 05:29 Docusate Sodium (Colace) 100 mg DAILY ORAL 05/18/18 09:00 06/17/18 08:59 05/20/18 08:53 Doxycycline Monohydrate (Vibramycin) 100 mg EVERY 12 HOURS ORAL 05/18/18 09:00 05/25/18 08:59 05/20/18 21:48 Finasteride (Proscar) 5 mg DAILY ORAL 05/18/18 09:00 06/17/18 08:59 05/20/18 08:54 Insulin Aspart (NovoLOG) BEFORE MEALS AND HS SUBQ 05/18/18 06:30 06/17/18 06:29 05/20/18 21:51 Metoprolol Tartrate (Lopressor) 75 mg EVERY 12 HOURS ORAL 05/18/18 09:00 06/17/18 08:59 05/20/18 21:49 Phenytoin (Dilantin) 100 mg THREE TIMES A DAY ORAL 05/18/18 09:00 06/17/18 08:59 05/20/18 17:29 Piperacillin Sod/ Tazobactam Sod 3.375 gm/Dextrose 110 ml @ 27.5 mls/hr Q12H IVPB 05/18/18 12:00 05/25/18 11:59 05/20/18 13:25 Pravastatin Sodium (Pravachol) 80 mg BEDTIME ORAL 05/18/18 21:00 06/17/18 20:59 05/20/18 21:49 Tamsulosin HCl (Flomax) 0.4 mg TWICE A DAY ORAL 05/18/18 18:00 06/17/18 17:59 05/20/18 17:29 Height (Feet): 5 Height (Inches): 6.00 Weight (Pounds): 171 Objective exam stable Pio Deshpande MD May 21, 2018 09:19
[2018-05-21] MEDS: Metoprolol 25mg tab ORAL SCH ×2 (09:41→21:22)
[2018-05-21] MEDS: Benztropine 1mg tab ORAL SCH ×2 (09:42→17:12)
[2018-05-21] MEDS: Phenytoin 100mg cap ORAL SCH ×3 (09:43→17:12)
[2018-05-21] MEDS: Levodopa/Carbidopa 25/100 tab ORAL SCH ×3 (09:43→17:13)
[2018-05-21] MEDS: Tamsulosin 0.4mg cap ORAL SCH ×2 (09:44→17:12)
[2018-05-21] MEDS: Docusate 100mg cap ORAL SCH (09:45)
[2018-05-21] MEDS: Piperacillin/Tazobactam 3.375 GM in D5W 110 ML IVPB SCH ×2 (13:38→23:54)
--- NOTE | 2018-05-21 19:32 | NUR ---
HAND-OFF: Report given to PARAM Carey.
--- NOTE | 2018-05-21 20:04 | NUR ---
NURSE NOTES: Patient in bed,asleep. Received patient with no IV access, will attempt at a later time. No s/s respiratory distress noted. No s/s pain. Bed in lowest position, call light within reach. Will continue to monitor.
[2018-05-22 00:23] VITALS: BP 130/82
[2018-05-22 04:00] VITALS: BP 159/80
[2018-05-22] MEDS: NovoLOG Insulin Flexpen SUBQ SCH ×4 (05:46→20:58)
--- NOTE | 2018-05-22 06:39 | NUR ---
NURSE NOTES: NO DISTRESS, AWAKE.
--- NOTE | 2018-05-22 07:18 | NUR ---
HAND-OFF: Report given to RENE MERCADO RN.
--- NOTE | 2018-05-22 07:30 | NUR ---
NURSE NOTES: Patient awake, verbal, confused; on room air, no sign of shortness of breath and chest pain. Side rails padded for seizure percussion. Condom cath in place drains by gravity well. IV RFA salen lock, flushes well. Bed at lowest position, side rails up x2 and breaks engaged. Call light within reach. Will keep monitoring.
[2018-05-22 08:00] VITALS: BP 161/88
--- NOTE | 2018-05-22 09:08 | Urology Progress Note ---
Assessment/Plan Assessment/Plan 1. Urinary retention history. 2. BPH history. 3. Neurogenic bladder. 4. Hematuria. 5. Acute kidney injury. 6. Probable chronic kidney disease. 7. Possible chronic prostatitis. monitor clinically cont flomax bid and proscar abx as ordered would prefer to avoid weathers cysto later consider renal imaging study monitor renal fxn check PVR PRN Subjective Allergies: Coded Allergies: NO KNOWN DRUG ALLERGIES (Unverified Allergy, Unknown, 04/11/14) Subjective all noted, pt has been voiding, urine grossly yellow by report, condom cath Objective Last 24 Hour Vital Signs Date Time Temp Pulse Resp B/P (MAP) Pulse Ox O2 Delivery O2 Flow Rate FiO2 05/22/18 04:00 98.1 71 17 159/80 (106) 96 05/22/18 00:23 98.2 78 17 130/82 (98) 96 05/21/18 21:52 Room Air 05/21/18 21:22 80 152/86 05/21/18 20:00 98.0 80 17 152/86 (108) 95 05/21/18 16:00 97.7 69 18 135/56 (82) 98 05/21/18 16:00 97.7 73 17 142/87 (105) 96 05/21/18 12:00 98.2 67 16 153/87 (109) 96 05/21/18 11:38 97.3 71 17 160/88 (112) 98 05/21/18 09:44 71 160/88 05/21/18 09:41 71 160/88 Intake and Output 05/21/18 05/22/18 19:00 07:00 Intake Total 470.0 ml 230.0 ml Output Total 1000 ml Balance 470.0 ml -770.0 ml Intake Oral 360 ml 120 ml IV Total 110.0 ml 110.0 ml Output Urine Total 1000 ml Microbiology Date/Time Source Procedure Growth Status 05/18/18 01:08 Nasal Nares MRSA Culture - Final NO METHICILLIN RESISTANT STAPH AUREUS... Complete 05/18/18 18:15 Urine,Clean Catch Urine Culture - Final Enterobacter Aerogenes Klebsiella Pneumoniae Complete 05/18/18 01:08 Rectum - Final NO CARBAPENEM-RESISTANT ENTEROBACTERI... Complete Current Medications Medications (Trade) Dose Ordered Sig/Thu Route PRN Reason Start Time Stop Time Status Last Admin Dose Admin Acetaminophen (Tylenol) 650 mg EVERY 8 HOURS PRN ORAL For Pain 05/18/18 05:15 06/17/18 05:14 Amlodipine Besylate (Norvasc) 10 mg DAILY ORAL 05/18/18 09:00 06/17/18 08:59 05/21/18 09:44 Benztropine Mesylate (Cogentin) 1 mg BID ORAL 05/18/18 09:00 06/17/18 08:59 05/21/18 17:12 Carbidopa/Levodopa (Sinemet 25/100) 1 tab THREE TIMES A DAY ORAL 05/18/18 09:00 06/17/18 08:59 05/21/18 17:13 Dextrose (Dextrose 50%) 25 ml Q30M PRN IV Hypoglycemia 05/18/18 05:30 06/17/18 05:29 Dextrose (Dextrose 50%) 50 ml Q30M PRN IV Hypoglycemia 05/18/18 05:30 06/17/18 05:29 Docusate Sodium (Colace) 100 mg DAILY ORAL 05/18/18 09:00 06/17/18 08:59 05/21/18 09:45 Doxycycline Monohydrate (Vibramycin) 100 mg EVERY 12 HOURS ORAL 05/18/18 09:00 05/25/18 08:59 05/21/18 21:23 Finasteride (Proscar) 5 mg DAILY ORAL 05/18/18 09:00 06/17/18 08:59 05/21/18 09:41 Insulin Aspart (NovoLOG) BEFORE MEALS AND HS SUBQ 05/18/18 06:30 06/17/18 06:29 05/21/18 21:25 Metoprolol Tartrate (Lopressor) 75 mg EVERY 12 HOURS ORAL 05/18/18 09:00 06/17/18 08:59 05/21/18 21:22 Phenytoin (Dilantin) 100 mg THREE TIMES A DAY ORAL 05/18/18 09:00 06/17/18 08:59 05/21/18 17:12 Piperacillin Sod/ Tazobactam Sod 3.375 gm/Dextrose 110 ml @ 27.5 mls/hr Q12H IVPB 05/18/18 12:00 05/25/18 11:59 05/21/18 23:54 Pravastatin Sodium (Pravachol) 80 mg BEDTIME ORAL 05/18/18 21:00 06/17/18 20:59 05/21/18 21:23 Tamsulosin HCl (Flomax) 0.4 mg TWICE A DAY ORAL 05/18/18 18:00 06/17/18 17:59 05/21/18 17:12 Height (Feet): 5 Height (Inches): 6.00 Weight (Pounds): 171 Objective exam stable Pio Deshpande MD May 22, 2018 09:08
[2018-05-22] MEDS: Benztropine 1mg tab ORAL SCH ×2 (09:23→17:04)
[2018-05-22] MEDS: Docusate 100mg cap ORAL SCH (09:24)
[2018-05-22] MEDS: Tamsulosin 0.4mg cap ORAL SCH ×2 (09:24→17:05)
[2018-05-22] MEDS: Levodopa/Carbidopa 25/100 tab ORAL SCH ×3 (09:24→17:05)
[2018-05-22] MEDS: Metoprolol 25mg tab ORAL SCH ×2 (09:24→20:55)
[2018-05-22] MEDS: Phenytoin 100mg cap ORAL SCH ×3 (09:24→17:05)
--- NOTE | 2018-05-22 10:31 | General Progress Note ---
Assessment/Plan Problem List: (1) CKD (chronic kidney disease) ICD Codes: N18.9 - Chronic kidney disease, unspecified SNOMED: 322372633 Qualifiers: Qualified Codes: N18.9 - Chronic kidney disease, unspecified (2) Prostate hypertrophy ICD Codes: N40.0 - Benign prostatic hyperplasia without lower urinary tract symptoms SNOMED: 368206182 (3) Acute renal insufficiency ICD Codes: N28.9 - Disorder of kidney and ureter, unspecified SNOMED: 88354078 (4) Leukocytosis ICD Codes: D72.829 - Elevated white blood cell count, unspecified SNOMED: 646036282 (5) UTI (urinary tract infection) ICD Codes: N39.0 - Urinary tract infection, site not specified SNOMED: 49083988 (6) Acute hyponatremia ICD Codes: E87.1 - Hypo-osmolality and hyponatremia SNOMED: 2330989 (7) Hematuria, gross ICD Codes: R31.0 - Gross hematuria SNOMED: 460834268 (8) Acute urinary retention ICD Codes: R33.8 - Other retention of urine SNOMED: 528260980 Status: stable, progressing Assessment/Plan iv abx adjusted monitor for bleeding scd dc planning if labs ok po abx at snf Subjective ROS Limited/Unobtainable: No Constitutional: Reports: malaise, weakness HEENT: Reports: no symptoms Cardiovascular: Reports: no symptoms Respiratory: Reports: no symptoms Gastrointestinal/Abdominal: Reports: no symptoms Genitourinary: Reports: no symptoms Neurologic/Psychiatric: Reports: anxiety, emotional problems, seizure Endocrine: Reports: no symptoms Hematologic/Lymphatic: Reports: no symptoms Allergies: Coded Allergies: NO KNOWN DRUG ALLERGIES (Unverified Allergy, Unknown, 04/11/14) All Systems: reviewed and negative except above Subjective no events. no more bleeding. UA with tntc wbc. Ucx results noted. Objective Last 24 Hour Vital Signs Date Time Temp Pulse Resp B/P (MAP) Pulse Ox O2 Delivery O2 Flow Rate FiO2 05/22/18 09:24 79 161/88 05/22/18 09:24 79 161/88 05/22/18 09:00 Room Air 05/22/18 08:00 98.1 79 18 161/88 (112) 98 05/22/18 04:00 98.1 71 17 159/80 (106) 96 05/22/18 00:23 98.2 78 17 130/82 (98) 96 05/21/18 21:52 Room Air 05/21/18 21:22 80 152/86 05/21/18 20:00 98.0 80 17 152/86 (108) 95 05/21/18 16:00 97.7 69 18 135/56 (82) 98 05/21/18 16:00 97.7 73 17 142/87 (105) 96 05/21/18 12:00 98.2 67 16 153/87 (109) 96 05/21/18 11:38 97.3 71 17 160/88 (112) 98 Intake and Output 05/21/18 05/22/18 19:00 07:00 Intake Total 470.0 ml 230.0 ml Output Total 1000 ml Balance 470.0 ml -770.0 ml Intake Oral 360 ml 120 ml IV Total 110.0 ml 110.0 ml Output Urine Total 1000 ml Height (Feet): 5 Height (Inches): 6.00 Weight (Pounds): 171 Objective General Appearance: WD/WN, alert Neck: supple Cardiovascular: regular rhythm Respiratory/Chest: lungs clear Abdomen: normal bowel sounds, non tender, soft, no organomegaly Edema: no edema noted Arm (L), no edema noted Arm (R), no edema noted Leg (L), no edema noted Leg (R), no edema noted Pedal (L), no edema noted Pedal (R), no edema noted Generalized Neurologic: alert Anthony Alejandro MD May 22, 2018 10:31
[2018-05-22] MEDS: cefTRIAXone 1 GM in D5W 55 ML IVPB SCH (11:52)
[2018-05-22 12:00] VITALS: BP 152/95
[2018-05-22 12:54] LABS: BASOPHILS % (AUTO) 1.3 % (0.0-2.0); EOSINOPHILS % (AUTO) 2.5 % (0.0-3.0); HEMATOCRIT 35.3 % (42.0-52.0); HEMOGLOBIN 11.8 G/DL (14.2-18.0); LYMPHOCYTES % (AUTO) 11.6 % (20.0-45.0); MEAN CORPUSCULAR VOLUME 92 FL (80-99); MONOCYTES % (AUTO) 6.6 % (1.0-10.0); PLATELET COUNT 333 K/UL (150-450); RED BLOOD COUNT 3.86 M/UL (4.70-6.10); RED CELL DISTRIBUTION WIDTH 12.8 % (11.6-14.8); WHITE BLOOD COUNT 10.5 K/UL (4.8-10.8)
[2018-05-22 13:08] LABS: ALANINE AMINOTRANSFERASE 7 U/L (12-78); ALBUMIN 2.5 G/DL (3.4-5.0); ALBUMIN/GLOBULIN RATIO 0.5 (1.0-2.7); ALKALINE PHOSPHATASE 194 U/L (46-116); ANION GAP 13 mmol/L (5-15); ASPARTATE AMINO TRANSFERASE 33 U/L (15-37); BILIRUBIN,TOTAL 0.2 MG/DL (0.2-1.0); BLOOD UREA NITROGEN 67 mg/dL (7-18); CALCIUM 7.6 MG/DL (8.5-10.1); CARBON DIOXIDE 19 MMOL/L (21-32); CHLORIDE 102 MMOL/L (98-107); CREATININE 2.6 MG/DL (0.55-1.30); POTASSIUM 4.8 MMOL/L (3.5-5.1); SODIUM 134 MMOL/L (136-145)
--- NOTE | 2018-05-22 14:23 | NUR ---
CHARGE NURSE NOTE: Nile 7.9. Dr. Alejandro was called, message left.
[2018-05-22] MEDS ORDERED: Tubing IV Secondary IV ONE (15:45)
[2018-05-22] MEDS ORDERED: NS 275ml ONE (15:45)
[2018-05-22 16:00] VITALS: BP 157/96
--- NOTE | 2018-05-22 19:27 | NUR ---
HAND-OFF: Report given to PARAM Addison.
[2018-05-22 20:00] VITALS: BP 147/85
[2018-05-23] VITALS: BP 152/88
[2018-05-23 04:00] VITALS: BP 150/94
[2018-05-23] MEDS: NovoLOG Insulin Flexpen SUBQ SCH ×3 (06:18→17:08)
--- NOTE | 2018-05-23 07:04 | NUR ---
HAND-OFF: Report given to Meeta VIRGEN.
--- NOTE | 2018-05-23 07:23 | NUR ---
NURSE NOTES: Patient awake and confused, patient yells on care givers; on room air, no sign of distress and shortness of breath; no chest pain; Condom cath in place drains clear yellow urine; side rails padded for seizure percussion; bed at lowest position, breaks engaged. Will check blood sugar as schedules and will give insulin pen as ordered. Call light within reach. Will keep monitoring.
--- NOTE | 2018-05-23 07:27 | NUR ---
NURSE NOTES: IV on RFA runs NS TKO. Will keep monitoring.
[2018-05-23 08:00] VITALS: BP 173/73
--- NOTE | 2018-05-23 08:58 | NUR ---
*-* DISCHARGE PLANNING *-* PATIENT HAS BEEN REFERRED BACK TO: [facility] P:[phone] F:[phone]
[2018-05-23] MEDS: Tamsulosin 0.4mg cap ORAL SCH ×2 (09:00→17:31)
[2018-05-23] MEDS: Phenytoin 100mg cap ORAL SCH ×3 (09:20→17:31)
[2018-05-23] MEDS: Docusate 100mg cap ORAL SCH (09:20)
[2018-05-23] MEDS: Levodopa/Carbidopa 25/100 tab ORAL SCH ×3 (09:20→17:31)
[2018-05-23] MEDS: Benztropine 1mg tab ORAL SCH ×2 (09:20→17:31)
[2018-05-23] MEDS: Metoprolol 25mg tab ORAL SCH (09:21)
--- NOTE | 2018-05-23 11:43 | Urology Progress Note ---
Assessment/Plan Assessment/Plan 1. Urinary retention history. 2. BPH history. 3. Neurogenic bladder. 4. Hematuria. 5. Acute kidney injury. 6. Probable chronic kidney disease. 7. Possible chronic prostatitis. monitor clinically cont flomax bid and proscar abx as ordered would prefer to avoid weathers cysto later consider renal imaging study monitor renal fxn, stable check PVR PRN Subjective Allergies: Coded Allergies: NO KNOWN DRUG ALLERGIES (Unverified Allergy, Unknown, 04/11/14) Subjective all noted, pt has been voiding, urine grossly yellow by report, condom cath Objective Last 24 Hour Vital Signs Date Time Temp Pulse Resp B/P (MAP) Pulse Ox O2 Delivery O2 Flow Rate FiO2 05/23/18 09:21 76 173/73 05/23/18 09:20 76 173/73 05/23/18 09:00 Room Air 05/23/18 08:00 97.8 76 18 173/73 (106) 97 05/23/18 04:00 97.6 72 19 150/94 (112) 96 05/23/18 00:00 97.3 18 152/88 (109) 97 05/22/18 21:00 Room Air 05/22/18 20:55 72 147/85 05/22/18 20:00 98.6 72 18 147/85 (105) 97 05/22/18 16:00 97.1 78 19 157/96 (116) 97 05/22/18 12:00 98.3 70 19 152/95 (114) 95 Intake and Output 05/22/18 05/23/18 19:00 07:00 Intake Total 480 ml Balance 480 ml Intake Oral 480 ml # Voids 6 # Bowel Movements 1 Microbiology Date/Time Source Procedure Growth Status 05/18/18 01:08 Nasal Nares MRSA Culture - Final NO METHICILLIN RESISTANT STAPH AUREUS... Complete 05/18/18 18:15 Urine,Clean Catch Urine Culture - Final Enterobacter Aerogenes Klebsiella Pneumoniae Complete 05/18/18 01:08 Rectum - Final NO CARBAPENEM-RESISTANT ENTEROBACTERI... Complete Current Medications Medications (Trade) Dose Ordered Sig/Thu Route PRN Reason Start Time Stop Time Status Last Admin Dose Admin Acetaminophen (Tylenol) 650 mg EVERY 8 HOURS PRN ORAL For Pain 05/18/18 05:15 06/17/18 05:14 Amlodipine Besylate (Norvasc) 10 mg DAILY ORAL 05/18/18 09:00 06/17/18 08:59 05/23/18 09:20 Benztropine Mesylate (Cogentin) 1 mg BID ORAL 05/18/18 09:00 06/17/18 08:59 05/23/18 09:20 Carbidopa/Levodopa (Sinemet 25/100) 1 tab THREE TIMES A DAY ORAL 05/18/18 09:00 06/17/18 08:59 05/23/18 09:20 Ceftriaxone Sodium 1 gm/ Dextrose 55 ml @ 110 mls/hr Q24H IVPB 05/22/18 12:00 05/29/18 11:59 05/22/18 11:52 Dextrose (Dextrose 50%) 25 ml Q30M PRN IV Hypoglycemia 05/18/18 05:30 06/17/18 05:29 Dextrose (Dextrose 50%) 50 ml Q30M PRN IV Hypoglycemia 05/18/18 05:30 06/17/18 05:29 Docusate Sodium (Colace) 100 mg DAILY ORAL 05/18/18 09:00 06/17/18 08:59 05/23/18 09:20 Doxycycline Monohydrate (Vibramycin) 100 mg EVERY 12 HOURS ORAL 05/18/18 09:00 05/25/18 08:59 05/23/18 09:20 Finasteride (Proscar) 5 mg DAILY ORAL 05/18/18 09:00 06/17/18 08:59 05/23/18 09:20 Insulin Aspart (NovoLOG) BEFORE MEALS AND HS SUBQ 05/18/18 06:30 06/17/18 06:29 05/23/18 06:18 Metoprolol Tartrate (Lopressor) 75 mg EVERY 12 HOURS ORAL 05/18/18 09:00 06/17/18 08:59 05/23/18 09:21 Phenytoin (Dilantin) 100 mg THREE TIMES A DAY ORAL 05/18/18 09:00 06/17/18 08:59 05/23/18 09:20 Pravastatin Sodium (Pravachol) 80 mg BEDTIME ORAL 05/18/18 21:00 06/17/18 20:59 05/22/18 20:55 Tamsulosin HCl (Flomax) 0.4 mg TWICE A DAY ORAL 05/18/18 18:00 06/17/18 17:59 05/22/18 17:05 Laboratory Tests 05/22/18 12:00: White Blood Count 10.5, Red Blood Count 3.86L, Hemoglobin 11.8L, Hematocrit 35.3L, Mean Corpuscular Volume 92, Mean Corpuscular Hemoglobin 30.6, Mean Corpuscular Hemoglobin Concent 33.4, Red Cell Distribution Width 12.8, Platelet Count 333, Mean Platelet Volume 6.3L, Neutrophils (%) (Auto) 78.0H, Lymphocytes (%) (Auto) 11.6L, Monocytes (%) (Auto) 6.6, Eosinophils (%) (Auto) 2.5, Basophils (%) (Auto) 1.3, Sodium Level 134L, Potassium Level 4.8, Chloride Level 102, Carbon Dioxide Level 19L, Anion Gap 13, Blood Urea Nitrogen 67H, Creatinine 2.6H, Estimat Glomerular Filtration Rate , Glucose Level 157H, Calcium Level 7.6L, Total Bilirubin 0.2, Aspartate Amino Transf (AST/SGOT) 33, Alanine Aminotransferase (ALT/SGPT) 7L, Alkaline Phosphatase 194H, Total Protein 7.6, Albumin 2.5L, Globulin 5.1, Albumin/Globulin Ratio 0.5L, Phenytoin (Dilantin) Level 7.9L Height (Feet): 5 Height (Inches): 6.00 Weight (Pounds): 171 Objective exam stable Pio Deshpande MD May 23, 2018 11:43
[2018-05-23 12:00] VITALS: BP 160/89
[2018-05-23] MEDS: cefTRIAXone 1 GM in D5W 55 ML IVPB SCH (12:13)
--- NOTE | 2018-05-23 15:30 | NUR ---
*-* DISCHARGE PLANNING *-* PATIENT IS DISCHARGED TO: [facility] ROOM# 238-C INTERMEDIATE T:[phone] FOR NURSE TO NURSE REPORT [facility] HAS BEEN ARRANGED FOR WHEEL ADJUSTER AT [address] JOSEFA [id number]
[2018-05-23 16:00] VITALS: BP 154/85
--- NOTE | 2018-05-23 18:29 | NUR ---
NURSE NOTES: Patient discharged at 1800, accompanied by two ambulance personnel. IV access and name tag removed upon discharge. Patient doesn't have belongings. Charge nurse, Mireya gave report to Kristen [facility]. Patient was stable upon discharge.
[2018-05-23] MEDS ORDERED: NS 275ml ONE (18:39)
--- NOTE | 2018-05-23 20:45 | Discharge Summary ---
DATE OF ADMISSION: 05/18/2018 DATE OF DISCHARGE: 05/23/2018 ADMISSION DIAGNOSES: 1. Sepsis. 2. Urinary tract infection. 3. Hematuria toxic. 4. Metabolic encephalopathy. 5. Acute on chronic renal failure. DISCHARGE DIAGNOSES: 1. Sepsis. 2. Urinary tract infection. 3. Hematuria toxic. 4. Metabolic encephalopathy. 5. Acute on chronic renal failure. HOSPITAL COURSE: The patient was admitted with complaints of hematuria. He was diagnosed with sepsis secondary to urinary tract infection. Cultures were followed up and antibiotics were adjusted based on culture results. He was hydrated for acute on chronic renal failure. His creatinine on discharge was 2.6. He has had level as high as 4. It was felt that this was likely chronic than his baseline level. The patient will be discharged back to the shelter facility. He will complete an additional week of antibiotic therapy there. DISCHARGE MEDICATIONS: Please see discharge medication list for discharge medications. DIET: Regular diet. ACTIVITY: Ad-lynnette. FOLLOWUP: The patient will be followed by his PMD at the shelter facility. Anthony Alejandro M.D. DR: Carlos Alberto JOB#: [id number] CC:
== END 2018-05-23 18:40 | DRG 871 ==
LOC: EDBD 20:59 → EMR 21:30 → 4E 05-18 01:07 → EDBEDREQ 05-18 01:59 → 4E 05-18 03:02
DX: A41.9 Sepsis, unspecified organism (principal); G93.41 Metabolic encephalopathy; N17.9 Acute kidney failure, unspecified; N39.0 Urinary tract infection, site not specified; E87.1 Hypo-osmolality and hyponatremia; N40.1 Benign prostatic hyperplasia with lower urinary tract symptoms; R33.8 Other retention of urine; N41.1 Chronic prostatitis; I12.9 Hypertensive chronic kidney disease with stage 1 through stage 4 chronic kidney disease, or unspecified chronic kidney disease; N18.9 Chronic kidney disease, unspecified; R31.9 Hematuria, unspecified; Z79.4 Long term (current) use of insulin; R31.0 Gross hematuria
CPT/HCPCS: 36415; 51701; 80048; 80053; 80185; 81003; 82962; 83036; 85025; 87081; 87086; 87181; 96374; 99285; J1815

== ENCOUNTER 2018-08-19 18:40 | Inpatient (IN) | payer MEDICAID, MEDICARE ==
[~2018-08-19] VITALS: Ht 167.6 cm; Wt 78.0 kg
[~2018-08-19 18:40] MED LIST changes: +DEPAKOTE125 MG PO; +LEVOFLOXACIN250 MG ORAL; +METOPROLOL-HCT1 EAC3 ORAL; +NOVOLIN 70100 UNIT/1 SUBQ; +RENA-VITE TABL0.8 M1 PO; +RESOURCE 2.0237 ML PO
--- NOTE | 2018-08-19 18:50 | Emergency Room Report ---
History of Present Illness General Chief Complaint: Male Urogenital Problems Source: Medical Record, EMS Present Illness HPI Patient is a 73-year-old male sent in by nursing facility for increased penile discharge. Patient was noted to have prior history of dementia. He was noted to be more agitated than usual Allergies: Coded Allergies: NO KNOWN DRUG ALLERGIES (Unverified Allergy, Unknown, 04/11/14) Patient History Past Medical History: see triage record Reviewed Nursing Documentation: PMH: Agreed; PSxH: Agreed Nursing Documentation-PMH Past Medical History: No History, Except For Hx Hypertension: Yes Hx COPD: Yes Hx Diabetes: Yes Hx Cancer: No Hx Gastrointestinal Problems: No - BP, Retention of urine History Of Psychiatric Problem: Yes - Schizophrenia Hx Neurological Problems: Yes - Parkinsons disease, Dementia, parkinson Hx Seizures: Yes Hx Epilepsy: Yes Review of Systems All Other Systems: limited - by poor historian Physical Exam Vital Signs Date Time Temp Pulse Resp B/P (MAP) Pulse Ox O2 Delivery O2 Flow Rate FiO2 08/19/18 18:45 97.9 88 21 95 Room Air Sp02 EP Interpretation: reviewed, normal General Appearance: normal inspection, alert, Chronically Ill Head: atraumatic ENT: normal ENT inspection, hearing grossly normal, normal voice Neck: normal inspection, full range of motion, supple, no bony tend Respiratory: normal inspection, lungs clear, normal breath sounds, no respiratory distress, no retraction, no wheezing Cardiovascular #1: regular rate, rhythm, no edema Gastrointestinal: normal inspection, normal bowel sounds, non tender, soft, no guarding, no hernia, other - distended bladder Genitourinary: no CVA tenderness, other - uncircumcised male cloudy discharge Musculoskeletal: normal inspection, back normal, normal range of motion Neurologic: normal inspection, alert, responsive, speech normal Psychiatric: mood/affect normal Skin: normal inspection, normal color, no rash Medical Decision Making Diagnostic Impression: Primary Impression: UTI (urinary tract infection) Additional Impressions: Urethral stricture Prostate hypertrophy ER Course Patient presented for increased penile discharge. Differential diagnosis include was not limited to urethral obstruction, stricture, sexual transmitted infection among others. Because of complexity of patient's case laboratory testing and imaging studies were ordered. Patient was given antibiotics for presumed urinary infection. Patient does appear to have some leakage of urine which appears cloudy. Dr. Loco Vila was contacted for urology consult due to inability to pass a catheter and possible urinary retention. Dr. Anthony Alejandro was contacted for inpatient management. Labs Test 08/19/18 21:35 08/19/18 21:58 White Blood Count 10.5 K/UL (4.8-10.8) Red Blood Count 3.38 M/UL (4.70-6.10) Hemoglobin 10.1 G/DL (14.2-18.0) Hematocrit 29.1 % (42.0-52.0) Mean Corpuscular Volume 86 FL (80-99) Mean Corpuscular Hemoglobin 29.8 PG (27.0-31.0) Mean Corpuscular Hemoglobin Concent 34.5 G/DL (32.0-36.0) Red Cell Distribution Width 12.4 % (11.6-14.8) Platelet Count 452 K/UL (150-450) Mean Platelet Volume 4.5 FL (6.5-10.1) Neutrophils (%) (Auto) 71.9 % (45.0-75.0) Lymphocytes (%) (Auto) 13.5 % (20.0-45.0) Monocytes (%) (Auto) 9.8 % (1.0-10.0) Eosinophils (%) (Auto) 3.2 % (0.0-3.0) Basophils (%) (Auto) 1.6 % (0.0-2.0) Sodium Level 133 MMOL/L (136-145) Potassium Level 5.1 MMOL/L (3.5-5.1) Chloride Level 100 MMOL/L (98-107) Carbon Dioxide Level 18 MMOL/L (21-32) Anion Gap 15 mmol/L (5-15) Blood Urea Nitrogen 110 mg/dL (7-18) Creatinine 3.4 MG/DL (0.55-1.30) Estimat Glomerular Filtration Rate mL/min (>60) Glucose Level 159 MG/DL (74-106) Calcium Level 8.0 MG/DL (8.5-10.1) Total Bilirubin 0.1 MG/DL (0.2-1.0) Aspartate Amino Transf (AST/SGOT) 28 U/L (15-37) Alanine Aminotransferase (ALT/SGPT) 11 U/L (12-78) Alkaline Phosphatase 179 U/L (46-116) Total Creatine Kinase 49 U/L (26-308) Creatine Kinase MB 0.7 NG/ML (0.0-3.6) Creatine Kinase MB Relative Index 1.4 Troponin I 0.009 ng/mL (0.000-0.056) Total Protein 7.5 G/DL (6.4-8.2) Albumin 2.4 G/DL (3.4-5.0) Globulin 5.1 g/dL Albumin/Globulin Ratio 0.5 (1.0-2.7) Lactic Acid Level 0.60 mmol/L (0.4-2.0) Last Vital Signs Date Time Temp Pulse Resp B/P (MAP) Pulse Ox O2 Delivery O2 Flow Rate FiO2 08/19/18 18:45 97.9 88 21 95 Room Air Status: unchanged Disposition: ADMITTED INPATIENT Condition: Stable Avel Huerta MD August 19, 2018 18:50
--- NOTE | 2018-08-19 18:50 | NUR ---
ED Nurse Note: pt betty by [facility] from [facility] due to unable to inserted weathers catheter. pt denies any pain. 2 RNs attempted to inserted weathers. felt resistance. Dr. Huerta notified. will order lidocaine jelly. respirations even and non-labored noted. pt cooperative. will wait for the further order.
[2018-08-19 18:55] VITALS: BP 123/96
--- NOTE | 2018-08-19 19:10 | NUR ---
HAND-OFF: Report given to PARAM Chung.
[2018-08-19 19:31] VITALS: BP 146/73
[2018-08-19] MEDS ORDERED: CELEXA20 MG ORAL (19:45)
--- NOTE | 2018-08-19 21:14 | NUR ---
ED Nurse Note: Called and gave report to Zoila VIR[facility]. Patient vital signs are stable. Inital call to give report was at 2107, was told nurse was on the phone with another patient's family and would call back. Rendered report at 2111 and was told Zoila would call me back regarding patient not having an IV.
[2018-08-19] MEDS ORDERED: cefTRIAXone 1 GM in D5W 55 ML IVPB ONE (21:30)
[2018-08-19 22:00] LABS: BASOPHILS % (AUTO) 1.6 % (0.0-2.0); EOSINOPHILS % (AUTO) 3.2 % (0.0-3.0); HEMATOCRIT 29.1 % (42.0-52.0); HEMOGLOBIN 10.1 G/DL (14.2-18.0); LYMPHOCYTES % (AUTO) 13.5 % (20.0-45.0); MEAN CORPUSCULAR VOLUME 86 FL (80-99); MONOCYTES % (AUTO) 9.8 % (1.0-10.0); NEUTROPHILS % (AUTO) 71.9 % (45.0-75.0); PLATELET COUNT 452 K/UL (150-450); RED BLOOD COUNT 3.38 M/UL (4.70-6.10); RED CELL DISTRIBUTION WIDTH 12.4 % (11.6-14.8); WHITE BLOOD COUNT 10.5 K/UL (4.8-10.8)
[2018-08-19 22:08] LABS: ANION GAP 15 mmol/L (5-15); BLOOD UREA NITROGEN 110 mg/dL (7-18); CARBON DIOXIDE 18 MMOL/L (21-32); CHLORIDE 100 MMOL/L (98-107); CREATININE 3.4 MG/DL (0.55-1.30); POTASSIUM 5.1 MMOL/L (3.5-5.1); SODIUM 133 MMOL/L (136-145)
[2018-08-19 22:20] LABS: ALANINE AMINOTRANSFERASE 11 U/L (12-78); ALBUMIN 2.4 G/DL (3.4-5.0); ALBUMIN/GLOBULIN RATIO 0.5 (1.0-2.7); ALKALINE PHOSPHATASE 179 U/L (46-116); ASPARTATE AMINO TRANSFERASE 28 U/L (15-37); BILIRUBIN,TOTAL 0.1 MG/DL (0.2-1.0); CKMB 0.7 NG/ML (0.0-3.6); CREATINE KINASE 49 U/L (26-308)
--- NOTE | 2018-08-19 22:40 | NUR ---
(urologist) at bedside.
[2018-08-19] MEDS ORDERED: D5NS 1,000 ML IV SCH (23:00)
--- NOTE | 2018-08-19 23:26 | Consultation ---
History of Present Illness General Date patient seen: August 19, 2018 Time patient seen: 23:22 Chief Complaint: Male Urogenital Problems Referring physician: Bradley Reason for Consultation: urinary retention Present Illness HPI 73 yo male, detention resident, demented. previously seen by Dr. Deshpande (3 months ago in hospital). Catheter was not placed. Patient voids ok, but has bee having dribbling of urine, concern for UTI. Unable to catheterize at home. Patient is non-cooperative. Allergies: Coded Allergies: NO KNOWN DRUG ALLERGIES (Unverified Allergy, Unknown, 04/11/14) Medication History Scheduled Amino Acids/Protein Hydrolys (Pro-Stat Liquid), 45 ML ORAL TID, (Reported) Amlodipine Besylate* (Amlodipine Besylate*), 10 MG ORAL DAILY, (Reported) Benztropine Mesylate* (Benztropine Mesylate*), 1 MG PO BID, (Reported) Carbidopa/Levodopa 25-100 Mg* (Sinemet 25-100 Mg Tablet*), 1 TAB ORAL THREE TIMES A DAY, (Reported) Citalopram Hydrobromide* (Celexa*), 20 MG ORAL DAILY, (Reported) Clonidine Hcl* (Catapres*), 0.1 MG ORAL EVERY 6 HOURS, (Reported) Dextromethorphan Hbr/Quinidine (Nuedexta 20-10 Mg Capsule), 1 EACH PO Q12HR, ( Reported) Docusate Sodium* (Colace*), 100 MG ORAL DAILY, (Reported) Docusate Sodium* (Colace*), 100 MG ORAL DAILY, (Reported) Donepezil Hcl* (Aricept*), 10 MG ORAL DAILY, (Reported) Finasteride* (Proscar*), 5 MG ORAL DAILY, (Reported) Insulin Glargine (Lantus), 0 SUBQ BEDTIME, (Reported) Insulin Glargine (Lantus), 24 SUBQ BEDTIME, (Reported) Levofloxacin (Levofloxacin*), 250 MG ORAL DAILY Metoprolol Tartrate* (Metoprolol Tartrate*), 75 MG ORAL EVERY 12 HOURS, ( Reported) Metoprolol/Hydrochlorothiazide (Metoprolol-Hctz 50-25 Mg Tab), 1 TAB ORAL DAILY, (Reported) Phenytoin Sodium Extended* (Dilantin*), 100 MG ORAL THREE TIMES A DAY, (Reported ) Phenytoin Sodium Extended* (Dilantin*), 100 MG ORAL THREE TIMES A DAY, (Reported ) Pravastatin Sodium (Pravachol), 80 MG ORAL BEDTIME, (Reported) Tamsulosin Hcl (Tamsulosin Hcl*), 0.4 MG ORAL BEDTIME, (Reported) Tamsulosin Hcl (Tamsulosin Hcl*), 0.4 MG ORAL BEDTIME, (Reported) Vit B Cmplx 3/Fa/Vit C/Biotin (Nephro-Nemo Rx Tablet), 1 EACH PO DAILY, ( Reported) Whey Protein Isolate (Beneprotein), 2 EACH PO BID, (Reported) Scheduled PRN Acetaminophen* (Acetaminophen 325MG Tablet*), 650 MG ORAL Q6H PRN for For Pain, (Reported) Miscellaneous Medications Divalproex Sodium (Depakote), 250 MG PO, (Reported) Folic Acid/Vitamin B Comp W-C (Kiarra-Nemo Tablet), 0.8 MG PO, (Reported) Hum Insulin Nph/Reg Insulin Hm (Novolin 70-30 100 Unit/Ml Vial), 0 SUBQ, ( Reported) Insulin Lispro (Humalog), 0 SUBQ, (Reported) Nutritional Supplement (Resource 2.0), 120 ML PO, (Reported) Patient History Limited by: medical condition History Provided By: Patient, Medical Record Healthcare decision maker N Resuscitation status Advanced Directive on File Past Medical/Surgical History Past Medical/Surgical History: (1) UTI (urinary tract infection) (2) Abnormal laboratory test result Review of Systems All Other Systems: negative except mentioned in HPI Physical Exam General Appearance: no apparent distress, confused Cardiovascular/Chest: normal rate Abdomen: non tender, soft Genitourinary/Rectal: normal genital exam Extremities: non-tender Neurologic: alert Last 24 Hour Vital Signs Date Time Temp Pulse Resp B/P (MAP) Pulse Ox O2 Delivery O2 Flow Rate FiO2 08/19/18 19:31 97.9 72 22 146/73 98 Room Air 08/19/18 18:55 73 24 123/96 99 Room Air 08/19/18 18:45 97.9 88 21 95 Room Air Laboratory Tests Test 08/19/18 21:35 08/19/18 21:58 White Blood Count 10.5 K/UL (4.8-10.8) Red Blood Count 3.38 M/UL (4.70-6.10) L Hemoglobin 10.1 G/DL (14.2-18.0) L Hematocrit 29.1 % (42.0-52.0) L Mean Corpuscular Volume 86 FL (80-99) Mean Corpuscular Hemoglobin 29.8 PG (27.0-31.0) Mean Corpuscular Hemoglobin Concent 34.5 G/DL (32.0-36.0) Red Cell Distribution Width 12.4 % (11.6-14.8) Platelet Count 452 K/UL (150-450) H Mean Platelet Volume 4.5 FL (6.5-10.1) L Neutrophils (%) (Auto) 71.9 % (45.0-75.0) Lymphocytes (%) (Auto) 13.5 % (20.0-45.0) L Monocytes (%) (Auto) 9.8 % (1.0-10.0) Eosinophils (%) (Auto) 3.2 % (0.0-3.0) H Basophils (%) (Auto) 1.6 % (0.0-2.0) Sodium Level 133 MMOL/L (136-145) L Potassium Level 5.1 MMOL/L (3.5-5.1) Chloride Level 100 MMOL/L (98-107) Carbon Dioxide Level 18 MMOL/L (21-32) L Anion Gap 15 mmol/L (5-15) Blood Urea Nitrogen 110 mg/dL (7-18) H Creatinine 3.4 MG/DL (0.55-1.30) H Estimat Glomerular Filtration Rate mL/min (>60) Glucose Level 159 MG/DL (74-106) H Calcium Level 8.0 MG/DL (8.5-10.1) L Total Bilirubin 0.1 MG/DL (0.2-1.0) L Aspartate Amino Transf (AST/SGOT) 28 U/L (15-37) Alanine Aminotransferase (ALT/SGPT) 11 U/L (12-78) L Alkaline Phosphatase 179 U/L (46-116) H Total Creatine Kinase 49 U/L (26-308) Creatine Kinase MB 0.7 NG/ML (0.0-3.6) Creatine Kinase MB Relative Index 1.4 Troponin I 0.009 ng/mL (0.000-0.056) Total Protein 7.5 G/DL (6.4-8.2) Albumin 2.4 G/DL (3.4-5.0) L Globulin 5.1 g/dL Albumin/Globulin Ratio 0.5 (1.0-2.7) L Lactic Acid Level 0.60 mmol/L (0.4-2.0) Height (Feet): 5 Height (Inches): 8.00 Weight (Pounds): 160 Medications Current Medications Medications (Trade) Dose Ordered Sig/Thu Route PRN Reason Start Time Stop Time Status Last Admin Dose Admin Acetaminophen (Tylenol) 650 mg Q6H PRN ORAL For Pain 08/19/18 22:45 09/18/18 22:44 Amlodipine Besylate (Norvasc) 10 mg DAILY ORAL 08/20/18 09:00 09/19/18 08:59 Benztropine Mesylate (Cogentin) 1 mg BID ORAL 08/20/18 09:00 09/19/18 08:59 Carbidopa/Levodopa (Sinemet 25/100) 1 tab THREE TIMES A DAY ORAL 08/20/18 09:00 09/19/18 08:59 Citalopram Hydrobromide (celeXA) 20 mg DAILY ORAL 08/20/18 09:00 09/19/18 08:59 Clonidine HCl (Catapres Tab) 0.1 mg EVERY 6 HOURS ORAL 08/20/18 00:00 09/19/18 00:00 Dextromethorphan/ Quinidine (Nuedexta Capsule) 1 cap Q12HR ORAL 08/20/18 09:00 09/19/18 08:59 Dextrose (Dextrose 50%) 25 ml Q30M PRN IV Hypoglycemia 08/19/18 22:45 09/18/18 22:44 Dextrose (Dextrose 50%) 50 ml Q30M PRN IV Hypoglycemia 08/19/18 22:45 09/18/18 22:44 Dextrose/Sodium Chloride 1,000 ml @ 50 mls/hr Q20H IV 08/19/18 23:00 09/18/18 22:59 Docusate Sodium (Colace) 100 mg DAILY ORAL 08/20/18 09:00 09/19/18 08:59 Donepezil HCl (Aricept) 10 mg DAILY ORAL 08/20/18 09:00 09/19/18 08:59 Finasteride (Proscar) 5 mg DAILY ORAL 08/20/18 09:00 09/19/18 08:59 Insulin Aspart (NovoLOG) BEFORE MEALS AND HS SUBQ 08/20/18 06:30 09/19/18 06:29 Metoprolol Tartrate (Lopressor) 75 mg EVERY 12 HOURS ORAL 08/20/18 09:00 09/19/18 08:59 Phenytoin (Dilantin) 100 mg THREE TIMES A DAY ORAL 08/20/18 09:00 09/19/18 08:59 Piperacillin Sod/ Tazobactam Sod 3.375 gm/Sodium Chloride 110 ml @ 27.5 mls/hr Q12H IVPB 08/20/18 00:00 08/27/18 00:00 Pravastatin Sodium (Pravachol) 80 mg BEDTIME ORAL 08/20/18 21:00 09/19/18 20:59 Tamsulosin HCl (Flomax) 0.4 mg BEDTIME ORAL 08/20/18 21:00 09/19/18 20:59 Vitamin B Complex/ Vit C/Folic Acid (Nephrovite) 1 tab DAILY ORAL 08/20/18 09:00 09/19/18 08:59 Objective Narrative under sterile conditions, attempted to pass 14 kiswahili catheter. clear obstruction along urethra. Attempted gentle dilation with 10 kiswahili angel sound which patient did not tolerate well. Requested to stop all measures. Assessment/Plan Status: stable Assessment/Plan: Patient is stable. Not in florid retention. Likely urethral obstruction. First cared for by Dr. Deshpande 05/2018. I agree with his recommendation that cysto will be required. Will have to re-evaluate patient as he has requested nothing else be done to his penis. He does not want to stay in the hospital either. Likely need case management to assess power of finance attorney and decision making parties. Patient has requested I not see him anymore at this time. Loco Vila M.D. August 19, 2018 23:26
--- NOTE | 2018-08-19 23:44 | NUR ---
ED Nurse Note: Annmarie worked up and seen by urologist, IV rocephin given, IV started at left AC 22G. REport update called into stefanie VIRGEN. Urologist unable to optain patent urinary catheter. May consult with new plan tomorrow. Patient transported to floor by Anthony GARIBAY.
[2018-08-20] VITALS: BP 164/64
--- NOTE | 2018-08-20 | NUR ---
NURSE NOTES: Received patient from ER via gurney. IV access asymptomatic, patent. Pt cleaned, VSS. Pt confused but otherwise cooperative. Admission orders from Dr Alejandro noted. Pt oriented to room, call light and belongings within reach. Fall and safety precautions taken.
[2018-08-20] MEDS: Piperacillin/Tazobactam 3.375 GM in NS 110 ML IVPB SCH ×2 (01:00→12:15)
[2018-08-20 04:00] VITALS: BP 160/86
[2018-08-20] MEDS: NovoLOG Insulin Flexpen SUBQ SCH ×4 (06:17→21:01)
--- NOTE | 2018-08-20 07:30 | NUR ---
NURSE NOTES: Patient void x1. Bladder scan ordered and will carry out.
--- NOTE | 2018-08-20 07:41 | NUR ---
HAND-OFF: Report given to PARAM Bobo.
--- NOTE | 2018-08-20 07:42 | NUR ---
HAND-OFF: Report given to [].
--- NOTE | 2018-08-20 07:59 | NUR ---
NURSE NOTES: received report form PARAM Harman. patient in bed. alert. verbally responsive. no respiratory distress noted. no pian at this time. NPO. Patient void urine. incontinent. no fever. IV LAC 22 running fluid. bed in the lowest position. call light within reach. will continue to monitor.
[2018-08-20 08:00] VITALS: BP 172/88
--- NOTE | 2018-08-20 08:20 | NUR ---
NURSE NOTES: bladder scan done. residual 579ml. no c.o pain on lower abd. patient void this morning but not able to measure d/t incontinent.
[2018-08-20] MEDS: Metoprolol 25mg tab ORAL SCH ×2 (08:34→20:52)
[2018-08-20] MEDS: Citalopram Hydrobromide 10mg Tab ORAL SCH (08:36)
[2018-08-20] MEDS: Levodopa/Carbidopa 25/100 tab ORAL SCH ×3 (08:36→17:39)
[2018-08-20] MEDS: Benztropine 1mg tab ORAL SCH ×2 (08:36→17:39)
[2018-08-20] MEDS: Phenytoin 100mg cap ORAL SCH ×3 (08:36→17:39)
[2018-08-20] MEDS: Nephrovite tab (Rena-Vite) ORAL SCH (08:36)
[2018-08-20] MEDS: Donepezil 10mg tab ORAL SCH (08:36)
[2018-08-20] MEDS: Nuedexta Capsule 20/10mg ORAL SCH ×2 (08:36→20:51)
[2018-08-20] MEDS: Docusate 100mg cap ORAL SCH (08:38)
[2018-08-20] MEDS ORDERED: Docusate 100mg cap ORAL SCH (09:00)
[2018-08-20 09:14] LABS: ALANINE AMINOTRANSFERASE 10 U/L (12-78); ALBUMIN 2.3 G/DL (3.4-5.0); ALBUMIN/GLOBULIN RATIO 0.4 (1.0-2.7); ALKALINE PHOSPHATASE 173 U/L (46-116); ANION GAP 15 mmol/L (5-15); ASPARTATE AMINO TRANSFERASE 24 U/L (15-37); BILIRUBIN,TOTAL 0.2 MG/DL (0.2-1.0); BLOOD UREA NITROGEN 110 mg/dL (7-18); CALCIUM 8.2 MG/DL (8.5-10.1); CARBON DIOXIDE 19 MMOL/L (21-32); CHLORIDE 103 MMOL/L (98-107); CREATININE 3.4 MG/DL (0.55-1.30); POTASSIUM 4.1 MMOL/L (3.5-5.1); SODIUM 137 MMOL/L (136-145)
--- NOTE | 2018-08-20 10:45 | NUR ---
NURSE NOTES: received order repeat bladder scan 4hrs later. and get clinical social work therapist consult for POA and decision maker parties. order noted and carried out.
--- NOTE | 2018-08-20 11:08 | Diagnostic Imaging Report ---
Indication: Dyspnea Comparison: 10/29/2016 A single view chest radiograph was obtained. Findings: Cardiomediastinal appearance is within normal limits for age. The lungs are clear. Pulmonary vascularity is appropriate. The diaphragmatic contour is smooth and costophrenic angles are sharp. No pleural effusions are identified. The bones are unremarkable. Impression: No acute findings
[2018-08-20 12:00] VITALS: BP 146/76
--- NOTE | 2018-08-20 12:29 | NUR ---
NURSE NOTES: urine residual 201ml@1220. notified dr. nguyen and received order dc NPO. [facility]. increase fluid to 85ml/hr.order noted and carried out. will continue to monitor.
[2018-08-20] MEDS ORDERED: D5NS 1,000 ML IV SCH (13:06)
[2018-08-20] MEDS: D5NS 1,000 ML IV SCH (13:14)
--- NOTE | 2018-08-20 14:24 | NUR ---
CASE MANAGEMENT: REVIEW 73Y/M YIMI FROM [facility] CC: UNABLE TO INSERT COHN CATH SI: URINARY RETENTION . UTI . URETHRAL STRICTURE T 97.9 HR 72 RR 22 BP 146/73 SAT 95% ROOM AIR H/H 10.1/29.1 NA 133 BUN 110 CR 3.4 ALT 11 ALK PHOS 179 IS: CEFTRIAXONE IV X1 D5 NS IVF X1 PATIENT ADMITTED TO MED/SURG UNIT 08/19/2018 DCP: PATIENT IS FROM [facility]
--- NOTE | 2018-08-20 14:30 | History and Physical Report ---
DATE OF ADMISSION: 08/19/2018 CHIEF COMPLAINT: Possibly urinary retention, acute renal failure. HISTORY OF PRESENT ILLNESS: The patient is a 73-year-old male. He has a history of hypertensive heart disease, BPH, seizure disorder, who presented the detention with complaints of difficulty voiding. On initial evaluation, there was a concern about possible urinary retention. The patient did have an elevated creatinine of 3.4. He denies any prior history of renal insufficiency. On initial evaluation in the emergency room, attempts at placing a catheter were unsuccessful. The patient has currently refused any further attempts for catheter placement. PAST MEDICAL HISTORY: As above. PAST SURGICAL HISTORY: None. CURRENT MEDICATIONS: Reconciled and reviewed. ALLERGIES: None. FAMILY HISTORY: None. SOCIAL HISTORY: Negative for tobacco, ethanol, or drugs. REVIEW OF SYSTEMS: GENERAL: No fevers or chills. HEENT: No headaches or visual changes. CARDIOPULMONARY: No chest pain or shortness of breath. GASTROINTESTINAL: No nausea or vomiting. GENITOURINARY: No urgency or frequency. MUSCULOSKELETAL: No joint pain or swelling. NEUROLOGIC: No evidence of seizures. PHYSICAL EXAMINATION: VITAL SIGNS: Temperature 97, pulse 72, respirations 22, blood pressure 146/73. GENERAL: The patient is well-developed, no apparent distress. HEART: Regular rate and rhythm. LUNGS: Clear. ABDOMEN: Soft, nontender, nondistended. EXTREMITIES: Without clubbing, cyanosis, or edema. LABORATORY DATA: Sodium 133, potassium 5.1, chloride 100, bicarb 18, BUN was 110, creatinine 3.4. White count was 10, hemoglobin 10, hematocrit 29, and platelets of 452. ASSESSMENT: This is an elderly male, history of hypertension, dementia, seizure disorder, admitted with acute renal failure. 1. Acute renal failure. 2. Possible obstructive uropathy. 3. BPH. 4. Hypertension. 5. Seizures. PLAN: Cautious hydration. Repeat bladder ultrasound. Renal and Urology followups will be obtained. [id number] was discussed with the patient at the bedside. Anthony Alejandro M.D. DR: URI JOB#: [id number] CC:
[2018-08-20 16:00] VITALS: BP 150/81
--- NOTE | 2018-08-20 19:33 | NUR ---
HAND-OFF: Report given to Alexandria Asenico RN.
[2018-08-20 20:00] VITALS: BP 162/85
--- NOTE | 2018-08-20 20:00 | NUR ---
NURSE NOTES: PATIENT IN BED. ON RA, NO SOB, NO ACUTE DISTRESS, DENIES PAIN. LAC IV INTACT, PATENT RUNNING FLUIDS. BED IN LOWEST POSITION, LOCKED, ALARMS ON. CALL LIGHT IN REACH.
[2018-08-20] MEDS: Tamsulosin 0.4mg cap ORAL SCH (20:51)
[2018-08-21] VITALS: BP 154/81
[2018-08-21] MEDS: D5NS 1,000 ML IV SCH ×2 (00:52→12:17)
[2018-08-21 04:00] VITALS: BP 149/79
[2018-08-21] MEDS: NovoLOG Insulin Flexpen SUBQ SCH ×4 (05:50→20:57)
--- NOTE | 2018-08-21 07:16 | NUR ---
HAND-OFF: Report given to Roderick VIRGEN.
--- NOTE | 2018-08-21 07:28 | NUR ---
NURSE NOTES: received report from Alexandria Asencio RN. patient in bed. having breakfast. alert. confused. verbally responsive. no respiratory distress. room air. no c/o pain at this time. IV on LAC intact. running fluid. bed in the lowest position. call light within reach. alarm on. will continue to monitor.
[2018-08-21 08:00] VITALS: BP 143/71
[2018-08-21] MEDS: Benztropine 1mg tab ORAL SCH ×2 (09:00→17:07)
[2018-08-21] MEDS: Phenytoin 100mg cap ORAL SCH ×3 (09:00→17:07)
[2018-08-21] MEDS: Donepezil 10mg tab ORAL SCH (09:00)
[2018-08-21] MEDS: Citalopram Hydrobromide 10mg Tab ORAL SCH (09:00)
[2018-08-21] MEDS: Metoprolol 25mg tab ORAL SCH ×2 (09:00→20:48)
[2018-08-21] MEDS: Nephrovite tab (Rena-Vite) ORAL SCH (09:00)
[2018-08-21] MEDS: Docusate 100mg cap ORAL SCH (09:00)
[2018-08-21] MEDS: Levodopa/Carbidopa 25/100 tab ORAL SCH ×3 (09:00→17:07)
[2018-08-21] MEDS: Nuedexta Capsule 20/10mg ORAL SCH ×2 (09:00→20:47)
--- NOTE | 2018-08-21 09:25 | NUR ---
NURSE NOTES: patient refused all morning medications. explained risks and benefits. offered 3times but still refused. patient alert. confused. verbally responsive. refused care at times. no respiratory distress noted. no c/o pain at this time. will continue to monitor.
--- NOTE | 2018-08-21 10:12 | NUR ---
NURSE NOTES: patient refused CMP this morning.
--- NOTE | 2018-08-21 11:05 | General Progress Note ---
Assessment/Plan Problem List: (1) Acute renal insufficiency ICD Codes: N28.9 - Disorder of kidney and ureter, unspecified SNOMED: 91981443 (2) Leukocytosis ICD Codes: D72.829 - Elevated white blood cell count, unspecified SNOMED: 587484753 (3) Hematuria, gross ICD Codes: R31.0 - Gross hematuria SNOMED: 462925240 (4) Prostate hypertrophy ICD Codes: N40.0 - Benign prostatic hyperplasia without lower urinary tract symptoms SNOMED: 699924079 (5) UTI (urinary tract infection) ICD Codes: N39.0 - Urinary tract infection, site not specified SNOMED: 69329681 (6) Urethral stricture SNOMED: 35369388 Status: stable Assessment/Plan: cont current rx ivf check labs abx check ua Subjective ROS Limited/Unobtainable: No Constitutional: Reports: malaise, weakness HEENT: Reports: no symptoms Cardiovascular: Reports: no symptoms Respiratory: Reports: no symptoms Gastrointestinal/Abdominal: Reports: no symptoms Genitourinary: Reports: no symptoms Neurologic/Psychiatric: Reports: no symptoms Endocrine: Reports: no symptoms Hematologic/Lymphatic: Reports: no symptoms Allergies: Coded Allergies: NO KNOWN DRUG ALLERGIES (Unverified Allergy, Unknown, 04/11/14) All Systems: reviewed and negative except above Subjective on ivf. voiding. denies dysuria. no fever or chills. no sob. Objective Last 24 Hour Vital Signs Date Time Temp Pulse Resp B/P (MAP) Pulse Ox O2 Delivery O2 Flow Rate FiO2 08/21/18 09:00 64 143/71 08/21/18 09:00 64 143/71 08/21/18 09:00 Room Air 08/21/18 08:00 97.5 64 18 143/71 (95) 97 08/21/18 05:51 149/79 08/21/18 04:00 97.7 65 19 149/79 (102) 97 08/21/18 00:00 154/81 08/21/18 00:00 98.1 64 18 154/81 (105) 98 08/20/18 21:00 Room Air 08/20/18 20:52 69 162/85 08/20/18 20:00 98.1 69 18 162/85 (110) 99 08/20/18 17:39 150/81 08/20/18 16:00 97.8 65 18 150/81 (104) 98 08/20/18 12:13 146/76 08/20/18 12:00 97.7 63 17 146/76 (99) 96 Intake and Output 08/20/18 08/21/18 19:00 07:00 Intake Total 880.0 ml 320 ml Balance 880.0 ml 320 ml Intake Oral 600 ml 320 ml IV Total 280.0 ml Bladder Scan Volume Amount 579 201-300 ml # Voids 2 2 # Bowel Movements 3 Height (Feet): 5 Height (Inches): 7.00 Weight (Pounds): 159 General Appearance: WD/WN, alert Neck: supple Cardiovascular: normal rate, regular rhythm Respiratory/Chest: chest wall non-tender, lungs clear, normal breath sounds Abdomen: normal bowel sounds, non tender, soft, no organomegaly Edema: no edema noted Arm (L), no edema noted Arm (R), no edema noted Leg (L), no edema noted Leg (R), no edema noted Pedal (L), no edema noted Pedal (R), no edema noted Generalized Anthony Alejandro MD August 21, 2018 11:05
[2018-08-21] MEDS: Piperacillin/Tazobactam 3.375 GM in NS 110 ML IVPB SCH ×4 (11:58→23:13)
[2018-08-21 12:00] VITALS: BP 144/79
[2018-08-21 13:26] LABS: ALANINE AMINOTRANSFERASE 12 U/L (12-78); ALBUMIN 2.1 G/DL (3.4-5.0); ALBUMIN/GLOBULIN RATIO 0.5 (1.0-2.7); ALKALINE PHOSPHATASE 167 U/L (46-116); ANION GAP 17 mmol/L (5-15); ASPARTATE AMINO TRANSFERASE 41 U/L (15-37); BILIRUBIN,TOTAL 0.2 MG/DL (0.2-1.0); BLOOD UREA NITROGEN 96 mg/dL (7-18); CALCIUM 7.3 MG/DL (8.5-10.1); CARBON DIOXIDE 14 MMOL/L (21-32); CHLORIDE 103 MMOL/L (98-107); CREATININE 3.3 MG/DL (0.55-1.30); POTASSIUM 4.1 MMOL/L (3.5-5.1); SODIUM 134 MMOL/L (136-145)
[2018-08-21 16:00] VITALS: BP 144/72
[2018-08-21 17:51] LABS: APPEARANCE,URINE CLOUDY; BILIRUBIN, URINE NEGATIVE (NEGATIVE); COLOR,URINE PALE YELLOW; GLUCOSE, URINE (UA) NEGATIVE (NEGATIVE); KETONES,URINE NEGATIVE (NEGATIVE); LEUKOCYTE ESTERASE ,URINE 3+ (NEGATIVE); NITRITE,URINE POSITIVE (NEGATIVE); PH,URINE 5 (4.5-8.0); PROTEIN,URINE 3+ (NEGATIVE); UROBILINOGEN,URINE NORMAL MG/DL (0.0-1.0)
--- NOTE | 2018-08-21 19:15 | NUR ---
HAND-OFF: Report given to Alexandria Asencio RN.
[2018-08-21 20:00] VITALS: BP 146/77
[2018-08-21] MEDS: Tamsulosin 0.4mg cap ORAL SCH (20:48)
[2018-08-22] VITALS: BP 158/86
[2018-08-22] MEDS: D5NS 1,000 ML IV SCH ×3 (00:24→23:21)
[2018-08-22 04:00] VITALS: BP 158/81
[2018-08-22] MEDS: NovoLOG Insulin Flexpen SUBQ SCH ×4 (06:05→20:35)
--- NOTE | 2018-08-22 07:14 | NUR ---
HAND-OFF: Report given to Gely VIRGEN.
--- NOTE | 2018-08-22 07:15 | NUR ---
NURSE NOTES: I received the patient awake and resting in bed. Patient alert to name. Bed in the lowest position and call light within reach. Patient does not display any signs of distress. or SOB. I will continue to monitor the patient and implement care.
[2018-08-22 08:00] VITALS: BP 140/68
[2018-08-22 08:09] LABS: ALANINE AMINOTRANSFERASE 11 U/L (12-78); ALBUMIN 2.2 G/DL (3.4-5.0); ALBUMIN/GLOBULIN RATIO 0.5 (1.0-2.7); ALKALINE PHOSPHATASE 173 U/L (46-116); ANION GAP 16 mmol/L (5-15); ASPARTATE AMINO TRANSFERASE 43 U/L (15-37); BILIRUBIN,TOTAL 0.2 MG/DL (0.2-1.0); BLOOD UREA NITROGEN 85 mg/dL (7-18); CALCIUM 7.2 MG/DL (8.5-10.1); CARBON DIOXIDE 16 MMOL/L (21-32); CHLORIDE 104 MMOL/L (98-107); CREATININE 3.2 MG/DL (0.55-1.30); SODIUM 136 MMOL/L (136-145)
--- NOTE | 2018-08-22 08:25 | NUR ---
NURSE NOTES: Dr. Alejandro made aware that the patient is positive for VRE rectum.
--- NOTE | 2018-08-22 08:27 | General Progress Note ---
Assessment/Plan Problem List: (1) Acute renal insufficiency ICD Codes: N28.9 - Disorder of kidney and ureter, unspecified SNOMED: 29492398 (2) Leukocytosis ICD Codes: D72.829 - Elevated white blood cell count, unspecified SNOMED: 214936323 (3) Hematuria, gross ICD Codes: R31.0 - Gross hematuria SNOMED: 232910536 (4) Prostate hypertrophy ICD Codes: N40.0 - Benign prostatic hyperplasia without lower urinary tract symptoms SNOMED: 344569456 (5) UTI (urinary tract infection) ICD Codes: N39.0 - Urinary tract infection, site not specified SNOMED: 34811417 (6) Urethral stricture SNOMED: 14716884 Status: stable Assessment/Plan: cont current rx ivf check labs abx follow up cultures monitor for voiding Subjective ROS Limited/Unobtainable: No Constitutional: Reports: malaise, weakness HEENT: Reports: no symptoms Cardiovascular: Reports: no symptoms Respiratory: Reports: no symptoms Gastrointestinal/Abdominal: Reports: no symptoms Genitourinary: Reports: no symptoms Neurologic/Psychiatric: Reports: no symptoms Endocrine: Reports: no symptoms Hematologic/Lymphatic: Reports: no symptoms Allergies: Coded Allergies: NO KNOWN DRUG ALLERGIES (Unverified Allergy, Unknown, 04/11/14) All Systems: reviewed and negative except above Subjective on ivf. voiding. denies dysuria. no chest pain renal fxn slightly better. +gnr in urine. on iv abx Objective Last 24 Hour Vital Signs Date Time Temp Pulse Resp B/P (MAP) Pulse Ox O2 Delivery O2 Flow Rate FiO2 08/22/18 08:00 98.0 63 18 140/68 (92) 98 08/22/18 06:02 158/81 08/22/18 04:00 97.7 64 19 158/81 (106) 98 08/22/18 00:24 158/86 08/22/18 00:00 97.8 62 18 158/86 (110) 97 08/21/18 21:00 Room Air 08/21/18 20:48 66 146/77 08/21/18 20:00 96.7 66 19 146/77 (100) 96 08/21/18 17:07 144/72 08/21/18 16:00 97.7 67 19 144/72 (96) 97 08/21/18 12:00 97.5 68 18 144/79 (100) 98 08/21/18 11:59 144/79 08/21/18 09:00 64 143/71 08/21/18 09:00 64 143/71 08/21/18 09:00 Room Air Intake and Output 08/21/18 08/22/18 19:00 07:00 Intake Total 860.0 ml 800 ml Output Total 900 ml Balance 860.0 ml -100 ml Intake Oral 240 ml 800 ml IV Total 620.0 ml Output Urine Total 900 ml # Voids 1 6 Laboratory Tests 08/21/18 12:25: Sodium Level 134L, Potassium Level 4.1, Chloride Level 103, Carbon Dioxide Level 14L, Anion Gap 17H, Blood Urea Nitrogen 96H, Creatinine 3.3H, Estimat Glomerular Filtration Rate , Glucose Level 157H, Calcium Level 7.3L, Total Bilirubin 0.2, Aspartate Amino Transf (AST/SGOT) 41H, Alanine Aminotransferase ( ALT/SGPT) 12, Alkaline Phosphatase 167H, Total Protein 6.5, Albumin 2.1L, Globulin 4.4, Albumin/Globulin Ratio 0.5L 08/21/18 17:41: Urine Color Pale yellow, Urine Appearance Cloudy, Urine pH 5, Urine Specific [place] 1.015, Urine Protein 3+H, Urine Glucose (UA) Negative, Urine Ketones Negative, Urine Blood 3+H, Urine Nitrite PositiveH, Urine Bilirubin Negative, Urine Urobilinogen Normal, Urine Leukocyte Esterase 3+H, Urine RBC TntcH, Urine WBC TntcH, Urine Squamous Epithelial Cells None, Urine Bacteria ManyH 08/22/18 06:40: Sodium Level 136, Potassium Level 4.0, Chloride Level 104, Carbon Dioxide Level 16L, Anion Gap 16H, Blood Urea Nitrogen 85H, Creatinine 3.2H, Estimat Glomerular Filtration Rate , Glucose Level 136H, Calcium Level 7.2L, Total Bilirubin 0.2, Aspartate Amino Transf (AST/SGOT) 43H, Alanine Aminotransferase ( ALT/SGPT) 11L, Alkaline Phosphatase 173H, Total Protein 6.7, Albumin 2.2L, Globulin 4.5, Albumin/Globulin Ratio 0.5L Height (Feet): 5 Height (Inches): 7.00 Weight (Pounds): 159 Objective General Appearance: WD/WN, alert Neck: supple Cardiovascular: normal rate, regular rhythm Respiratory/Chest: chest wall non-tender, lungs clear, normal breath sounds Abdomen: normal bowel sounds, non tender, soft, no organomegaly Edema: no edema noted Arm (L), no edema noted Arm (R), no edema noted Leg (L), no edema noted Leg (R), no edema noted Pedal (L), no edema noted Pedal (R), no edema noted Generalized Anthony Alejandro MD August 22, 2018 08:27
[2018-08-22] MEDS: Levodopa/Carbidopa 25/100 tab ORAL SCH ×3 (09:24→16:59)
[2018-08-22] MEDS: Donepezil 10mg tab ORAL SCH (09:25)
[2018-08-22] MEDS: Metoprolol 25mg tab ORAL SCH ×2 (09:25→20:26)
[2018-08-22] MEDS: Benztropine 1mg tab ORAL SCH ×2 (09:25→16:59)
[2018-08-22] MEDS: Citalopram Hydrobromide 10mg Tab ORAL SCH (09:25)
[2018-08-22] MEDS: Nuedexta Capsule 20/10mg ORAL SCH ×2 (09:25→20:25)
[2018-08-22] MEDS: Docusate 100mg cap ORAL SCH (09:25)
[2018-08-22] MEDS: Phenytoin 100mg cap ORAL SCH ×3 (09:25→16:59)
[2018-08-22] MEDS: Nephrovite tab (Rena-Vite) ORAL SCH (09:25)
--- NOTE | 2018-08-22 09:38 | NUR ---
CHARGE NURSE NOTES: DR. SALTER MADE AWARE VENOUS DUPLEX RESULT, ACUTE DVT ON BOTH SUPERFICIAL FEMORAL VEIN. SCDS OFF
[2018-08-22] MEDS ORDERED: Xarelto 10mg tab ORAL SCH (09:45)
--- NOTE | 2018-08-22 09:49 | NUR ---
Social Service Note Patient is under LPS Conservatorship under the public guardian. Public Guardian is Servando Pineda [phone]. Per PG if patient requires a procedure that requires a consent that is not mental health related or emergent than a physician and psychiatrist will be required to completed a 7 point form which will be submitted to court for judgement. However if a physician determines that a procedure in emergent, documents risks, benefits, possible outcomes and urgency, PG to be notified and then proceed with procedure. SW also clarified with PG and SW at [facility] that patient doesn't have any next of kin. The name Sukhdeep Dubon will be removed from face sheet. SW discussed with charge nurse.
[2018-08-22 12:00] VITALS: BP 149/79
[2018-08-22] MEDS: Piperacillin/Tazobactam 3.375 GM in NS 110 ML IVPB SCH ×2 (12:26→23:58)
[2018-08-22] MEDS: Eliquis 5mg tablet ORAL SCH ×2 (12:38→20:31)
--- NOTE | 2018-08-22 13:04 | NUR ---
HAND-OFF: Report given to PARAM Siddiqui.
[2018-08-22 16:00] VITALS: BP 127/63
--- NOTE | 2018-08-22 19:02 | NUR ---
HAND-OFF: Report given to Mena VIRGEN.
--- NOTE | 2018-08-22 19:39 | Cardiology Report ---
APPROVED REPORT EKG Measurement Heart [id number] Normal sinus rhythm Left axis deviation Anteroseptal infarct, age undetermined Prolonged QT Abnormal ECG
--- NOTE | 2018-08-22 19:41 | NUR ---
NURSE NOTES: Received patient awake in bed, very pleasant, able to verbalize needs, no c/o pain at this time, no s/s of acute distress. IV access aysmptomatic, dressing reinforced on L hand IV access, currently running zosyn. Will monitor blood sugar and DVT closely.
[2018-08-22 20:00] VITALS: BP 125/66
[2018-08-22] MEDS: Tamsulosin 0.4mg cap ORAL SCH (20:25)
[2018-08-23] VITALS: BP 144/78
[2018-08-23 03:33] VITALS: BP 146/79
[2018-08-23] MEDS: NovoLOG Insulin Flexpen SUBQ SCH ×4 (05:59→22:47)
--- NOTE | 2018-08-23 07:41 | NUR ---
HAND-OFF: Report given to PARAM Little.
--- NOTE | 2018-08-23 07:42 | NUR ---
NURSE NOTES: Received patient in bed, awake, alert and oriented x1. Not in respiratory distress. Denies any pain, SOB or discomfort. Side rails padded for seizure precaution. Bed is in lowest position and locked. Bed alarm is on for safety. Call light and personnel items within reach.Will continue plan of care.
--- NOTE | 2018-08-23 07:50 | NUR ---
NURSE NOTES: Patient has a condom cath.During round noted with 100cc of straw colored urine in urine bag.Will continue to monitor.
[2018-08-23 08:00] VITALS: BP 142/73
--- NOTE | 2018-08-23 08:18 | General Progress Note ---
Assessment/Plan Problem List: (1) Acute renal insufficiency ICD Codes: N28.9 - Disorder of kidney and ureter, unspecified SNOMED: 92908487 (2) Leukocytosis ICD Codes: D72.829 - Elevated white blood cell count, unspecified SNOMED: 805691393 (3) Hematuria, gross ICD Codes: R31.0 - Gross hematuria SNOMED: 153703039 (4) Prostate hypertrophy ICD Codes: N40.0 - Benign prostatic hyperplasia without lower urinary tract symptoms SNOMED: 960217200 (5) UTI (urinary tract infection) ICD Codes: N39.0 - Urinary tract infection, site not specified SNOMED: 21136993 (6) Urethral stricture SNOMED: 01314987 Status: stable Assessment/Plan: cont current rx ivf check labs- pending abx follow up cultures monitor for voiding monitor bladder scan Subjective ROS Limited/Unobtainable: No Constitutional: Reports: malaise, weakness HEENT: Reports: no symptoms Cardiovascular: Reports: no symptoms Respiratory: Reports: no symptoms Gastrointestinal/Abdominal: Reports: no symptoms Genitourinary: Reports: no symptoms Neurologic/Psychiatric: Reports: no symptoms Endocrine: Reports: no symptoms Hematologic/Lymphatic: Reports: no symptoms Allergies: Coded Allergies: NO KNOWN DRUG ALLERGIES (Unverified Allergy, Unknown, 04/11/14) All Systems: reviewed and negative except above Subjective on ivf. voiding. denies dysuria. no chest pain renal fxn slightly better- labs still pending for today Objective Last 24 Hour Vital Signs Date Time Temp Pulse Resp B/P (MAP) Pulse Ox O2 Delivery O2 Flow Rate FiO2 08/23/18 05:58 146/79 08/23/18 03:33 98.0 68 20 146/79 (101) 97 08/23/18 00:00 96.4 57 18 144/78 (100) 98 08/22/18 23:58 149/79 08/22/18 21:00 Room Air 08/22/18 20:26 60 149/79 08/22/18 20:00 97.6 58 18 125/66 (85) 98 08/22/18 16:59 149/79 08/22/18 16:00 97.6 60 18 127/63 (84) 98 08/22/18 12:25 149/79 08/22/18 12:00 97.3 62 18 149/79 (102) 98 08/22/18 09:25 63 140/68 08/22/18 09:25 63 140/68 08/22/18 09:00 Room Air Intake and Output 08/22/18 08/23/18 19:00 07:00 Intake Total 845 ml 195 ml Output Total 200 ml 100 ml Balance 645 ml 95 ml Intake Oral 420 ml IV Total 425 ml 195 ml Output Urine Total 200 ml 100 ml # Voids 2 1 # Bowel Movements 2 1 Laboratory Tests 08/23/18 07:35: Sodium Level [Pending], Potassium Level [Pending], Chloride Level [Pending], Carbon Dioxide Level [Pending], Blood Urea Nitrogen [Pending], Creatinine [ Pending], Estimat Glomerular Filtration Rate [Pending], Glucose Level [Pending] , Calcium Level [Pending], Total Bilirubin [Pending], Aspartate Amino Transf ( AST/SGOT) [Pending], Alanine Aminotransferase (ALT/SGPT) [Pending], Alkaline Phosphatase [Pending], Total Protein [Pending], Albumin [Pending], Globulin [ Pending] Height (Feet): 5 Height (Inches): 7.00 Weight (Pounds): 159 General Appearance: WD/WN, alert Neck: supple Cardiovascular: regular rhythm Respiratory/Chest: chest wall non-tender, lungs clear, normal breath sounds Abdomen: normal bowel sounds, non tender, soft, no organomegaly Edema: no edema noted Arm (L), no edema noted Arm (R), no edema noted Leg (L), no edema noted Leg (R), no edema noted Pedal (L), no edema noted Pedal (R), no edema noted Generalized Objective General Appearance: WD/WN, alert Neck: supple Cardiovascular: normal rate, regular rhythm Respiratory/Chest: chest wall non-tender, lungs clear, normal breath sounds Abdomen: normal bowel sounds, non tender, soft, no organomegaly Edema: no edema noted Arm (L), no edema noted Arm (R), no edema noted Leg (L), no edema noted Leg (R), no edema noted Pedal (L), no edema noted Pedal (R), no edema noted Generalized Anthony Alejandro MD August 23, 2018 08:18
[2018-08-23 08:51] LABS: ALANINE AMINOTRANSFERASE 10 U/L (12-78); ALBUMIN 2.1 G/DL (3.4-5.0); ALBUMIN/GLOBULIN RATIO 0.4 (1.0-2.7); ALKALINE PHOSPHATASE 169 U/L (46-116); ANION GAP 17 mmol/L (5-15); ASPARTATE AMINO TRANSFERASE 31 U/L (15-37); BILIRUBIN,TOTAL 0.2 MG/DL (0.2-1.0); BLOOD UREA NITROGEN 71 mg/dL (7-18); CALCIUM 7.2 MG/DL (8.5-10.1); CARBON DIOXIDE 15 MMOL/L (21-32); CHLORIDE 104 MMOL/L (98-107); CREATININE 3.2 MG/DL (0.55-1.30); POTASSIUM 3.5 MMOL/L (3.5-5.1); SODIUM 135 MMOL/L (136-145)
[2018-08-23] MEDS: Benztropine 1mg tab ORAL SCH ×2 (09:19→17:07)
[2018-08-23] MEDS: Citalopram Hydrobromide 10mg Tab ORAL SCH (09:25)
[2018-08-23] MEDS: Nephrovite tab (Rena-Vite) ORAL SCH (09:26)
[2018-08-23] MEDS: Eliquis 5mg tablet ORAL SCH ×2 (09:27→22:37)
[2018-08-23] MEDS: Levodopa/Carbidopa 25/100 tab ORAL SCH ×3 (09:28→17:07)
[2018-08-23] MEDS: Phenytoin 100mg cap ORAL SCH ×3 (09:29→17:07)
[2018-08-23] MEDS: Nuedexta Capsule 20/10mg ORAL SCH ×2 (09:31→22:37)
[2018-08-23] MEDS: Donepezil 10mg tab ORAL SCH (09:32)
[2018-08-23] MEDS: Docusate 100mg cap ORAL SCH (09:33)
[2018-08-23] MEDS: Metoprolol 25mg tab ORAL SCH ×2 (09:42→22:40)
--- NOTE | 2018-08-23 10:00 | NUR ---
NURSE NOTES: Inserted a new IV on right hand with G22, intact, patent @ this time. Will continue to monitor.
--- NOTE | 2018-08-23 11:04 | NUR ---
CASE MANAGEMENT:REVIEW 08/23/18 SI: ACUTE RENAL INSUFF. HEMATURIA. UTI URETHRAL STRICTURE 96.8 58 20 142/73 99% on ra BUN+71 CR+3.2 IS: IV ZOSYN Q12 ELIQUIS PO Q12 FLOMAX PO QHS IVF@85/HR NORVASC PO QD COGENTIN PO BID LOPRESSOR PO Q12 DILANTIN PO TID CLONIDINE PO Q6HRS : MED/SURG STATUS 4 EAST DCP: FROM NURIA CASEY
[2018-08-23] MEDS: D5NS 1,000 ML IV SCH ×2 (11:47→23:33)
--- NOTE | 2018-08-23 11:59 | NUR ---
HAND-OFF: Report given to Carmen RN, patient is in stable condition.
[2018-08-23 12:04] VITALS: BP 161/81
[2018-08-23] MEDS: Piperacillin/Tazobactam 3.375 GM in NS 110 ML IVPB SCH (12:13)
--- NOTE | 2018-08-23 12:20 | NUR ---
NURSE NOTES: Received patient in bed, awake, alert and oriented x1-2, reality orientation provided, no sign of respiratory distress. Denies any pain, SOB or discomfort. Side rails padded for seizure precaution. Bed is in lowest position and locked. Bed alarm is on for safety. on condom cath, bladder scan done no residual noted, Call light and personnel items within reach.Will continue plan of care evangelina craig
[2018-08-23 16:00] VITALS: BP 141/61
--- NOTE | 2018-08-23 19:33 | NUR ---
HAND-OFF: Report given to PARAM Brown.
[2018-08-23 20:00] VITALS: BP 130/61
--- NOTE | 2018-08-23 20:32 | NUR ---
NURSE NOTES: Received report from PARAM Morales. Patient sleeping. On room air. No signs of distress or labored breathing. IV intact, patent, and saline locked. Bed in lowest position with call light in reach. Will continue with plan of care.
[2018-08-23] MEDS: Tamsulosin 0.4mg cap ORAL SCH (22:37)
[2018-08-24] VITALS: BP 151/79
[2018-08-24] MEDS: Piperacillin/Tazobactam 3.375 GM in NS 110 ML IVPB SCH ×2 (00:41→12:13)
[2018-08-24 04:00] VITALS: BP 135/69
[2018-08-24] MEDS: NovoLOG Insulin Flexpen SUBQ SCH ×4 (07:09→22:54)
[2018-08-24 07:14] LABS: ALANINE AMINOTRANSFERASE 9 U/L (12-78); ALBUMIN 2.2 G/DL (3.4-5.0); ALBUMIN/GLOBULIN RATIO 0.4 (1.0-2.7); ALKALINE PHOSPHATASE 180 U/L (46-116); ANION GAP 18 mmol/L (5-15); ASPARTATE AMINO TRANSFERASE 29 U/L (15-37); BILIRUBIN,TOTAL 0.2 MG/DL (0.2-1.0); BLOOD UREA NITROGEN 66 mg/dL (7-18); CALCIUM 7.2 MG/DL (8.5-10.1); CARBON DIOXIDE 13 MMOL/L (21-32); CHLORIDE 105 MMOL/L (98-107); CREATININE 3.3 MG/DL (0.55-1.30); POTASSIUM 3.6 MMOL/L (3.5-5.1); SODIUM 135 MMOL/L (136-145)
--- NOTE | 2018-08-24 07:44 | General Progress Note ---
Assessment/Plan Problem List: (1) Acute renal insufficiency ICD Codes: N28.9 - Disorder of kidney and ureter, unspecified SNOMED: 54372899 (2) Leukocytosis ICD Codes: D72.829 - Elevated white blood cell count, unspecified SNOMED: 829643422 (3) Hematuria, gross ICD Codes: R31.0 - Gross hematuria SNOMED: 002241709 (4) Prostate hypertrophy ICD Codes: N40.0 - Benign prostatic hyperplasia without lower urinary tract symptoms SNOMED: 982354739 (5) UTI (urinary tract infection) ICD Codes: N39.0 - Urinary tract infection, site not specified SNOMED: 08364512 (6) Urethral stricture SNOMED: 76984578 Status: stable, progressing Assessment/Plan: add oral sodium bicarb ivf abx follow up cultures monitor for voiding monitor bladder scan dc planning tomorrow if labs better Subjective ROS Limited/Unobtainable: No Constitutional: Reports: malaise, weakness HEENT: Reports: no symptoms Cardiovascular: Reports: no symptoms Respiratory: Reports: no symptoms Gastrointestinal/Abdominal: Reports: no symptoms Genitourinary: Reports: no symptoms Neurologic/Psychiatric: Reports: no symptoms Endocrine: Reports: no symptoms Hematologic/Lymphatic: Reports: no symptoms Allergies: Coded Allergies: NO KNOWN DRUG ALLERGIES (Unverified Allergy, Unknown, 04/11/14) All Systems: reviewed and negative except above Subjective on ivf. voiding. denies dysuria. no chest pain renal fxn slightly better. bun trending down. cr unchanged. bicarb worse Objective Last 24 Hour Vital Signs Date Time Temp Pulse Resp B/P (MAP) Pulse Ox O2 Delivery O2 Flow Rate FiO2 08/24/18 07:04 135/69 08/24/18 04:00 97.5 57 14 135/69 (91) 96 08/24/18 00:41 151/79 08/24/18 00:00 98.4 64 16 151/79 (103) 97 08/23/18 22:40 62 130/61 08/23/18 21:00 Room Air 08/23/18 20:00 98.1 62 16 130/61 (84) 98 08/23/18 17:08 141/61 08/23/18 16:00 98.2 53 20 141/61 (87) 97 08/23/18 12:10 161/81 08/23/18 12:04 98.3 63 14 161/81 (107) 97 08/23/18 09:42 64 154/80 08/23/18 09:42 64 154/80 08/23/18 09:00 Room Air 08/23/18 08:00 96.8 58 20 142/73 (96) 99 Intake and Output 08/23/18 08/24/18 19:00 07:00 Intake Total 1365.0 ml Output Total 300 ml Balance 1065.0 ml Intake Oral 660 ml IV Total 705.0 ml Output Urine Total 300 ml # Voids 5 # Bowel Movements 3 Laboratory Tests 08/24/18 06:00: Sodium Level 135L, Potassium Level 3.6, Chloride Level 105, Carbon Dioxide Level 13L, Anion Gap 18H, Blood Urea Nitrogen 66H, Creatinine 3.3H, Estimat Glomerular Filtration Rate , Glucose Level 124H, Calcium Level 7.2L, Total Bilirubin 0.2, Aspartate Amino Transf (AST/SGOT) 29, Alanine Aminotransferase ( ALT/SGPT) 9L, Alkaline Phosphatase 180H, Total Protein 7.4, Albumin 2.2L, Globulin 5.2, Albumin/Globulin Ratio 0.4L Height (Feet): 5 Height (Inches): 7.00 Weight (Pounds): 165 Objective General Appearance: WD/WN, alert Neck: supple Cardiovascular: normal rate, regular rhythm Respiratory/Chest: chest wall non-tender, lungs clear, normal breath sounds Abdomen: normal bowel sounds, non tender, soft, no organomegaly Edema: no edema noted Arm (L), no edema noted Arm (R), no edema noted Leg (L), no edema noted Leg (R), no edema noted Pedal (L), no edema noted Pedal (R), no edema noted Generalized Anthony Alejandro MD August 24, 2018 07:44
--- NOTE | 2018-08-24 07:51 | NUR ---
HAND-OFF: Report given to Vicky Hernández RN.
--- NOTE | 2018-08-24 07:52 | NUR ---
NURSE NOTES: Received patient in bed, awake, alert and oriented x1. Not in respiratory distress. Denies any pain, SOB or discomfort. Side rails padded for seizure precaution. Bed is in lowest position and locked. Bed alarm is on for safety. Call light and personnel items within reach.No IV,now.Per material handler 1st shift, patient pulled it out. Will follow up.Will continue plan of care.
[2018-08-24 08:00] VITALS: BP 152/69
[2018-08-24] MEDS: Benztropine 1mg tab ORAL SCH ×2 (08:51→17:29)
[2018-08-24] MEDS: Docusate 100mg cap ORAL SCH ×2 (08:51→09:00)
[2018-08-24] MEDS: Levodopa/Carbidopa 25/100 tab ORAL SCH ×3 (08:51→17:28)
[2018-08-24] MEDS: Phenytoin 100mg cap ORAL SCH ×3 (08:52→17:28)
[2018-08-24] MEDS: Eliquis 5mg tablet ORAL SCH ×2 (08:52→22:47)
[2018-08-24] MEDS: Sodium Bicarbonate 650mg Tab ORAL SCH ×3 (08:52→17:28)
[2018-08-24] MEDS: Nuedexta Capsule 20/10mg ORAL SCH ×2 (08:52→22:46)
[2018-08-24] MEDS: Citalopram Hydrobromide 10mg Tab ORAL SCH (08:52)
[2018-08-24] MEDS: Donepezil 10mg tab ORAL SCH (08:52)
[2018-08-24] MEDS: Nephrovite tab (Rena-Vite) ORAL SCH (08:52)
[2018-08-24] MEDS: Metoprolol 25mg tab ORAL SCH ×2 (08:53→22:45)
[2018-08-24] MEDS: D5NS 1,000 ML IV SCH ×2 (10:55→14:11)
--- NOTE | 2018-08-24 11:00 | NUR ---
NURSE NOTES: Inserted a new IV on left wrist with G24. Intact and patent. No swelling or infiltration on IV insertion site and arm Will continue to monitor.
[2018-08-24 12:00] VITALS: BP 157/64
--- NOTE | 2018-08-24 14:16 | NUR ---
RD ASSESSMENT & RECOMMENDATIONS SEE CARE ACTIVITY FOR COMPLETE ASSESSMENT DAILY ESTIMATED NEEDS: Needs based on Renal 69kg adj 25-30 kcals/kg 2924-9445 total kcals 1-1.2 g protein/kg 69-83 g total protein Fluid per MD NUTRITION DIAGNOSIS: Decreased sodium needs r/t renal insufficiency as evidenced by elev BUN(66), elev creat (3.3). CURRENT DIET: CCHO MED SOFT EASY CHEW PO DIET RECOMMENDATIONS: *LOW NA / SOFT EASY CHEW* ----- ADDITIONAL RECOMMENDATIONS: 1) Diet recs as above 2) Add CCHO MED w/ improved po intake 3) Add GLUCERNA 1 tetra hoang w/ meals for increased kcal intake 4) Monitor lytes w/ current renal status, need for dietary restriction 5) Obtain a standing weight as able
--- NOTE | 2018-08-24 14:34 | NUR ---
CASE MANAGEMENT:REVIEW 08/24/18 SI: ACUTE RENAL INSUFF. HEMATURIA. UTI URETHRAL STRICTURE 96.6 61 18 157/64 97% ON RA IS: IVF@85/HR IV ZOSYN Q12 NAHCO3 PO TID ELIQUIS PO Q12 FLOMAX PO QHS IVF@85/HR NORVASC PO QD COGENTIN PO BID LOPRESSOR PO Q12 DILANTIN PO TID CLONIDINE PO Q6HRS : MED/SURG STATUS 4 EAST DCP: FROM NURIA CASEY
[2018-08-24 16:00] VITALS: BP 152/70
--- NOTE | 2018-08-24 19:29 | NUR ---
HAND-OFF: Report given to Tressa.
--- NOTE | 2018-08-24 19:51 | NUR ---
NURSE NOTES: Received report from Vicky Hernández RN. Patient sleeping. On room air. No signs of distress or labored breathing. IV intact, patent, and infusing fluids. Bed in lowest position with call light in reach. Will continue with plan of care.
[2018-08-24 20:00] VITALS: BP 151/84
[2018-08-24] MEDS: Tamsulosin 0.4mg cap ORAL SCH (22:46)
[2018-08-25] VITALS: BP 162/83
[2018-08-25] MEDS: Piperacillin/Tazobactam 3.375 GM in NS 110 ML IVPB SCH ×2 (01:00→12:06)
[2018-08-25 04:00] VITALS: BP 157/86
[2018-08-25] MEDS: NovoLOG Insulin Flexpen SUBQ SCH ×4 (06:38→20:06)
[2018-08-25] MEDS: D5NS 1,000 ML IV SCH (06:39)
[2018-08-25 06:53] LABS: ALANINE AMINOTRANSFERASE 10 U/L (12-78); ALBUMIN 2.1 G/DL (3.4-5.0); ALBUMIN/GLOBULIN RATIO 0.4 (1.0-2.7); ALKALINE PHOSPHATASE 173 U/L (46-116); ANION GAP 15 mmol/L (5-15); ASPARTATE AMINO TRANSFERASE 32 U/L (15-37); BILIRUBIN,TOTAL 0.2 MG/DL (0.2-1.0); BLOOD UREA NITROGEN 57 mg/dL (7-18); CARBON DIOXIDE 13 MMOL/L (21-32); CHLORIDE 105 MMOL/L (98-107); CREATININE 3.3 MG/DL (0.55-1.30); POTASSIUM 3.7 MMOL/L (3.5-5.1); SODIUM 133 MMOL/L (136-145)
--- NOTE | 2018-08-25 07:56 | NUR ---
HAND-OFF: Report given to PARAM Bobo.
--- NOTE | 2018-08-25 07:59 | General Progress Note ---
Assessment/Plan Problem List: (1) Acute renal insufficiency ICD Codes: N28.9 - Disorder of kidney and ureter, unspecified SNOMED: 99834217 (2) Leukocytosis ICD Codes: D72.829 - Elevated white blood cell count, unspecified SNOMED: 951130762 (3) Hematuria, gross ICD Codes: R31.0 - Gross hematuria SNOMED: 735758454 (4) Prostate hypertrophy ICD Codes: N40.0 - Benign prostatic hyperplasia without lower urinary tract symptoms SNOMED: 851572289 (5) UTI (urinary tract infection) ICD Codes: N39.0 - Urinary tract infection, site not specified SNOMED: 85896368 (6) Urethral stricture SNOMED: 62209090 Status: stable, progressing Assessment/Plan: sodium bicarb abx follow up cultures monitor for voiding monitor bladder scan renal eval ?dc planning Subjective ROS Limited/Unobtainable: No Constitutional: Reports: malaise, weakness HEENT: Reports: no symptoms Cardiovascular: Reports: no symptoms Respiratory: Reports: no symptoms Gastrointestinal/Abdominal: Reports: no symptoms Genitourinary: Reports: no symptoms Neurologic/Psychiatric: Reports: no symptoms Endocrine: Reports: no symptoms Hematologic/Lymphatic: Reports: no symptoms Allergies: Coded Allergies: NO KNOWN DRUG ALLERGIES (Unverified Allergy, Unknown, 04/11/14) All Systems: reviewed and negative except above Subjective no events. w/o complaints on abx for esbl uti. bicarb still low. on sodium bicarb tabs Objective Last 24 Hour Vital Signs Date Time Temp Pulse Resp B/P (MAP) Pulse Ox O2 Delivery O2 Flow Rate FiO2 08/25/18 06:39 157/86 08/25/18 04:00 98.4 63 18 157/86 (109) 95 08/25/18 01:00 162/83 08/25/18 00:00 98.3 61 19 162/83 (109) 97 08/24/18 22:45 71 151/84 08/24/18 21:00 Room Air 08/24/18 20:00 98.5 71 19 151/84 (106) 97 08/24/18 17:28 149/71 08/24/18 16:00 98.1 63 20 152/70 (97) 97 08/24/18 12:12 152/61 08/24/18 12:00 96.6 61 18 157/64 (95) 97 08/24/18 09:00 Room Air 08/24/18 08:53 61 152/69 08/24/18 08:52 61 152/69 08/24/18 08:00 98.0 61 22 152/69 (96) 97 Intake and Output 08/24/18 08/25/18 19:00 07:00 Intake Total 1170.0 ml Output Total 450 ml 500 ml Balance 720.0 ml -500 ml Intake Oral 720 ml IV Total 450.0 ml Output Urine Total 450 ml 500 ml # Voids 2 # Bowel Movements 3 1 Laboratory Tests 08/25/18 05:45: Sodium Level 133L, Potassium Level 3.7, Chloride Level 105, Carbon Dioxide Level 13L, Anion Gap 15, Blood Urea Nitrogen 57H, Creatinine 3.3H, Estimat Glomerular Filtration Rate , Glucose Level 149H, Calcium Level 7.0L, Total Bilirubin 0.2, Aspartate Amino Transf (AST/SGOT) 32, Alanine Aminotransferase ( ALT/SGPT) 10L, Alkaline Phosphatase 173H, Total Protein 7.1, Albumin 2.1L, Globulin 5.0, Albumin/Globulin Ratio 0.4L Height (Feet): 5 Height (Inches): 7.00 Weight (Pounds): 165 Objective General Appearance: WD/WN, alert Neck: supple Cardiovascular: normal rate, regular rhythm Respiratory/Chest: chest wall non-tender, lungs clear, normal breath sounds Abdomen: normal bowel sounds, non tender, soft, no organomegaly Edema: no edema noted Arm (L), no edema noted Arm (R), no edema noted Leg (L), no edema noted Leg (R), no edema noted Pedal (L), no edema noted Pedal (R), no edema noted Generalized Anthony Alejandro MD August 25, 2018 07:59
[2018-08-25 08:00] VITALS: BP 165/90
--- NOTE | 2018-08-25 08:01 | NUR ---
NURSE NOTES: received report from PARAM Bustillos. patient in bed. alert. confused. verbally responsive. no respiratory distress noted. no c/o pain at this time. IV on L wrist running fluid. condom cath in place and draining. bed in the lowest position. call light within reach. bed alarm on. will continue to monitor.
[2018-08-25] MEDS: Nephrovite tab (Rena-Vite) ORAL SCH (08:41)
[2018-08-25] MEDS: Sodium Bicarbonate 650mg Tab ORAL SCH (08:41)
[2018-08-25] MEDS: Benztropine 1mg tab ORAL SCH ×2 (08:41→17:18)
[2018-08-25] MEDS: Nuedexta Capsule 20/10mg ORAL SCH ×2 (08:41→20:04)
[2018-08-25] MEDS: Donepezil 10mg tab ORAL SCH (08:41)
[2018-08-25] MEDS: Docusate 100mg cap ORAL SCH ×3 (08:41→17:18)
[2018-08-25] MEDS: Metoprolol 25mg tab ORAL SCH ×2 (08:42→20:06)
[2018-08-25] MEDS: Eliquis 5mg tablet ORAL SCH ×2 (08:42→20:05)
[2018-08-25] MEDS: Levodopa/Carbidopa 25/100 tab ORAL SCH ×3 (08:42→17:18)
[2018-08-25] MEDS: Phenytoin 100mg cap ORAL SCH ×3 (08:42→17:18)
[2018-08-25] MEDS: Citalopram Hydrobromide 10mg Tab ORAL SCH (08:44)
--- NOTE | 2018-08-25 10:32 | Consultation ---
Consult Note Consult Note asked to eval for renal failure and low Bicarb patient interviewed poor historian data reviewed examined being treated for UTI no sign of CHF Hx Hypertension: Yes Hx COPD: Yes Hx Diabetes: Yes Hx Gastrointestinal Problems: No - BP, Retention of urine History Of Psychiatric Problem: Yes - Schizophrenia Hx Neurological Problems: Yes - Parkinsons disease, Dementia, parkinson Hx Seizures: Yes Hx Epilepsy: Yes Assessment/Plan Acute on chronic renal failure Likely Diabetic Nephrosclerosis Anemia of CKD Proteinuria / HypoAlbuminemia likely due to DM BPH HTN Parkinsons Plan: Start Po Bicitra Kidney TONY Anemia potts check Uric Acid Urine studies up dose flomax per orders check dialntin level Sukhdeep Rodriguez MD August 25, 2018 10:31
[2018-08-25 11:03] LABS: CHOLESTEROL 96 MG/DL (< 200); CREATINE KINASE 45 U/L (26-308); GAMMA GLUTAMYL TRANSPEPTIDASE 296 U/L (5-85); HDL CHOLESTEROL 41 MG/DL (40-60); PHOSPHORUS 5.3 MG/DL (2.5-4.9); TRIGLYCERIDES 82 MG/DL (30-150)
[2018-08-25 11:20] LABS: % IRON SATURATION 20 % (15-50); IRON 46 ug/dL (50-175); TOTAL IRON BINDING CAPACITY 232 ug/dL (250-450)
[2018-08-25 12:00] VITALS: BP 172/89
[2018-08-25] MEDS ORDERED: SODIUM BICARBONATE IV SCH (12:00)
[2018-08-25] MEDS ORDERED: D5NS IV SCH (12:00)
[2018-08-25] MEDS: Sodium Citrate 30ml ORAL SCH ×3 (12:06→23:48)
--- NOTE | 2018-08-25 12:44 | Diagnostic Imaging Report ---
Indication:Elevated Bun and Creatinine. Technique: Grayscale and duplex Doppler imaging of the kidneys performed. Comparison: None Findings: Moderate bilateral hydronephrosis demonstrated. The bladder is distended with about a 500 cc volume. There is debris and/or blood within the bladder lumen. There is a nonobstructing stone in the right kidney within one of the calyces. There is a small central defect in the prostate gland consistent with previous TURP. IVC is unremarkable. The right kidney measures 10.6 cm in length and the left 9 cm in length. IMPRESSION: Moderate bilateral hydronephrosis. This may be related to bladder urinary retention given a moderately distended urinary bladder. Debris or blood within the bladder lumen. Status post TURP Nonobstructive stone in the right kidney
[2018-08-25 16:00] VITALS: BP 170/87
--- NOTE | 2018-08-25 16:03 | NUR ---
DISCHARGE [employer]IC[facility] FAXED TO [facility] T: [phone] F: [phone]
[2018-08-25] MEDS: Tamsulosin 0.4mg cap ORAL SCH (17:18)
--- NOTE | 2018-08-25 19:14 | NUR ---
HAND-OFF: Report given to PARAM amin.
--- NOTE | 2018-08-25 19:15 | NUR ---
NURSE NOTES: received report from PARAM Bobo. Patient in bed. alert. confused, verbally responsive. No s/sx of respiratory distress noted. no c/o pain at this time. IV on L wrist , patent, asymptomatic, running fluid. condom cath in place and draining. bed in the lowest position. call light within reach. bed alarm on. will continue to monitor.
[2018-08-25 19:50] LABS: APPEARANCE,URINE CLOUDY; BILIRUBIN, URINE NEGATIVE (NEGATIVE); COLOR,URINE PALE YELLOW; GLUCOSE, URINE (UA) 2+ (NEGATIVE); KETONES,URINE NEGATIVE (NEGATIVE); LEUKOCYTE ESTERASE ,URINE 3+ (NEGATIVE); NITRITE,URINE NEGATIVE (NEGATIVE); PH,URINE 5 (4.5-8.0); PROTEIN,URINE 4+ (NEGATIVE); UROBILINOGEN,URINE NORMAL MG/DL (0.0-1.0)
[2018-08-25 20:00] VITALS: BP 145/86
[2018-08-26] VITALS (8 sets, daily range): BP systolic 118–186; BP diastolic 68–110
--- NOTE | 2018-08-26 | NUR ---
NURSE NOTES: Pt had an episode of vomiting and nausea. 100 ml emesis, undigested food and fluid. Withheld meds at bedtime except IV antibiotics. Will continue to monitor. Attempted to reach Dr Javon vargas nausea and vomiting. Will await response.
[2018-08-26] MEDS: Piperacillin/Tazobactam 3.375 GM in NS 110 ML IVPB SCH ×2 (00:28→13:06)
[2018-08-26] MEDS: Sodium Citrate 30ml ORAL SCH ×5 (05:05→23:08)
[2018-08-26] MEDS: NovoLOG Insulin Flexpen SUBQ SCH ×4 (05:58→21:58)
--- NOTE | 2018-08-26 07:00 | NUR ---
HAND-OFF: Report given to PARAM Bobo.
[2018-08-26] MEDS: HydrALAZINE 50mg tab ORAL SCH ×4 (07:02→22:01)
--- NOTE | 2018-08-26 07:22 | NUR ---
NURSE NOTES: received report from eloisa goldberg RN. patient in bed. alert. verbally responsive. no respiratory distress noted. no c/o pain. IV on Lt wrist running fluid. bed in the lowest position. call light within reach. alarm on. will continue to monitor.
--- NOTE | 2018-08-26 07:40 | NUR ---
NURSE NOTES: administered hydralizine for HTN. as ordered. blood pressure still high 184/101, o2 84% in room air. wheezing. seen by Dr. nguyen. received new order of o2 via NC 2l. O2 level was 89-90% even o2 treatment. dc fluid. transfer to telemetry.
[2018-08-26] MEDS ORDERED: Albuterol/Ipratropium 3ml neb HHN PRN ×2 (08:00→12:30)
--- NOTE | 2018-08-26 08:00 | NUR ---
NURSE NOTES: rechecked blood pressure. 169/95
--- NOTE | 2018-08-26 08:01 | General Progress Note ---
Assessment/Plan Problem List: (1) Acute renal insufficiency ICD Codes: N28.9 - Disorder of kidney and ureter, unspecified SNOMED: 51790698 (2) Leukocytosis ICD Codes: D72.829 - Elevated white blood cell count, unspecified SNOMED: 645713128 (3) Hematuria, gross ICD Codes: R31.0 - Gross hematuria SNOMED: 162556848 (4) Prostate hypertrophy ICD Codes: N40.0 - Benign prostatic hyperplasia without lower urinary tract symptoms SNOMED: 973694075 (5) UTI (urinary tract infection) ICD Codes: N39.0 - Urinary tract infection, site not specified SNOMED: 06810049 (6) Urethral stricture SNOMED: 10789639 Status: stable, progressing Assessment/Plan: hold ivf check stat cxr check trop resp rx tele Subjective ROS Limited/Unobtainable: No Constitutional: Reports: malaise, weakness HEENT: Reports: no symptoms Cardiovascular: Reports: no symptoms Respiratory: Reports: shortness of breath Gastrointestinal/Abdominal: Reports: no symptoms Genitourinary: Reports: no symptoms Neurologic/Psychiatric: Reports: no symptoms Endocrine: Reports: no symptoms Hematologic/Lymphatic: Reports: no symptoms Allergies: Coded Allergies: NO KNOWN DRUG ALLERGIES (Unverified Allergy, Unknown, 04/11/14) All Systems: reviewed and negative except above Subjective more sob. congested. placed on o2. Some wheezing noted. denies cp Objective Last 24 Hour Vital Signs Date Time Temp Pulse Resp B/P (MAP) Pulse Ox O2 Delivery O2 Flow Rate FiO2 08/26/18 07:26 185/104 08/26/18 05:05 185/104 08/26/18 04:00 98.8 102 18 179/104 (129) 96 08/26/18 00:00 99.8 88 18 158/84 (108) 96 08/25/18 23:48 145/86 08/25/18 21:00 Room Air 08/25/18 20:06 84 145/86 08/25/18 20:00 98.6 84 18 145/86 (105) 92 08/25/18 17:18 170/87 08/25/18 16:00 98.1 80 20 170/87 (114) 92 08/25/18 12:07 172/89 08/25/18 12:00 98.1 77 19 172/89 (116) 94 08/25/18 09:00 Room Air 08/25/18 08:42 63 157/86 08/25/18 08:42 63 157/86 08/25/18 08:00 97.9 77 17 165/90 (115) 99 Intake and Output 08/25/18 08/26/18 18:59 06:59 Intake Total 770.0 ml 610.0 ml Output Total 350 ml 2 ml Balance 420.0 ml 608.0 ml Intake Oral 360 ml IV Total 410.0 ml 610.0 ml Output Urine Total 350 ml 2 ml # Voids 2 # Bowel Movements 1 Laboratory Tests 08/25/18 18:50: Urine Color Pale yellow, Urine Appearance Cloudy, Urine pH 5, Urine Specific [place] 1.015, Urine Protein 4+H, Urine Glucose (UA) 2+H, Urine Ketones Negative , Urine Blood 5+H, Urine Nitrite Negative, Urine Bilirubin Negative, Urine Urobilinogen Normal, Urine Leukocyte Esterase 3+H, Urine RBC 15-20H, Urine WBC TntcH, Urine Squamous Epithelial Cells Occasional, Urine Bacteria ManyH, Urine Random Sodium 33 Height (Feet): 5 Height (Inches): 7.00 Weight (Pounds): 165 Objective General Appearance: WD/WN, alert Neck: supple Cardiovascular: normal rate, regular rhythm Respiratory/Chest: chest wall non-tender, lungs - rhonchi and wheezes Abdomen: normal bowel sounds, non tender, soft, no organomegaly Edema: no edema noted Arm (L), no edema noted Arm (R), no edema noted Leg (L), no edema noted Leg (R), no edema noted Pedal (L), no edema noted Pedal (R), no edema noted Generalized Anthony Alejandro MD August 26, 2018 08:01
[2018-08-26] MEDS: Nuedexta Capsule 20/10mg ORAL SCH ×2 (09:00→22:01)
[2018-08-26] MEDS: Levodopa/Carbidopa 25/100 tab ORAL SCH ×4 (09:30→18:27)
[2018-08-26] MEDS: Phenytoin 100mg cap ORAL SCH ×4 (09:31→18:27)
[2018-08-26] MEDS: Metoprolol 25mg tab ORAL SCH (09:31)
[2018-08-26] MEDS: Citalopram Hydrobromide 10mg Tab ORAL SCH (09:31)
[2018-08-26] MEDS: Tamsulosin 0.4mg cap ORAL SCH ×3 (09:32→18:27)
[2018-08-26] MEDS: Benztropine 1mg tab ORAL SCH ×3 (09:32→18:27)
[2018-08-26] MEDS: Donepezil 10mg tab ORAL SCH (09:32)
[2018-08-26] MEDS: Nephrovite tab (Rena-Vite) ORAL SCH (09:32)
[2018-08-26] MEDS: Docusate 100mg cap ORAL SCH ×4 (09:32→18:26)
[2018-08-26] MEDS: Eliquis 5mg tablet ORAL SCH ×2 (09:32→21:08)
--- NOTE | 2018-08-26 10:02 | NUR ---
NURSE NOTES: Pt refused last medication, nuedexta. Pt says he can't take anymore pills. Noted in eMAR.
[2018-08-26] MEDS ORDERED: LORazepam Inj 2mg/ml 1ml IV PRN ×2 (10:15→12:15)
--- NOTE | 2018-08-26 10:42 | NUR ---
NURSE NOTES: Pt is very anxious, continues to yell. Checked bladder scan and residual is [address] Rodriguez ordered weathers catheter. Attempted to insert weathers and there is too much resistance. Spoke with both Dr. Vila and Dr. Alejandro regarding pt's retention. Per Dr. Vila, pt still had urinary output documented on the input and output intervention. He says inserting a weathers is impossible and pt refuses insertion regardless. Dr. Vila says there is nothing he wants to change in his plan of care for the patient. Per Dr. Alejandro, he is going to contact Dr. Deshpande to also see the patient to see if there is anything else we can do for his retention. Will continue to monitor patient closely.
[2018-08-26 11:15] LABS: ANION GAP 20 mmol/L (5-15); BLOOD UREA NITROGEN 54 mg/dL (7-18); CALCIUM 6.8 MG/DL (8.5-10.1); CARBON DIOXIDE 13 MMOL/L (21-32); CHLORIDE 103 MMOL/L (98-107); CREATININE 3.5 MG/DL (0.55-1.30); POTASSIUM 3.5 MMOL/L (3.5-5.1); SODIUM 136 MMOL/L (136-145)
--- NOTE | 2018-08-26 11:17 | Diagnostic Imaging Report ---
Indication: Cough Comparison: 08/19/2018 A single view chest radiograph was obtained. Findings: Groundglass opacities are present within the lungs bilaterally. Pulmonary vascularity may be slightly prominent also. Heart size is within normal limits. IMPRESSION: Patchy groundglass opacities. Consider CHF. Pneumonia is possible. Follow-up and clinical correlation recommended
[2018-08-26 11:19] LABS: ALANINE AMINOTRANSFERASE 14 U/L (12-78); ALBUMIN 2.3 G/DL (3.4-5.0); ALBUMIN/GLOBULIN RATIO 0.4 (1.0-2.7); ALKALINE PHOSPHATASE 169 U/L (46-116); ASPARTATE AMINO TRANSFERASE 34 U/L (15-37); BILIRUBIN,TOTAL 0.2 MG/DL (0.2-1.0); PHOSPHORUS 4.7 MG/DL (2.5-4.9)
--- NOTE | 2018-08-26 11:56 | NUR ---
NURSE NOTES: Spoke with Dr. Deshpande about pt's condition. He said to make the patient NPO just in case of need for surgery. He said he will talk to Dr. Vila and then he will call back.
--- NOTE | 2018-08-26 12:00 | NUR ---
NURSE NOTES: Pt is very anxious and his blood pressure is in the 180s systolic. Pt continues to yell and scream. Let Dr. Alejandro know that the patient seems very anxious and agitated. He ordered 2 mg ativan IV q2 hours. Will give ativan when new IV is inserted. Previous IV infiltrated.
--- NOTE | 2018-08-26 12:00 | NUR ---
NURSE NOTES: Dr. Rodriguez called to see about the status of the weathers of the patient. I made Dr. Rodriguez aware that we failed weathers insertion and we called Dr. Vila and Javon to make them aware. I told him we already spoke with Dr. Deshpande who made the patient NPO in case of emergent surgery. Dr. Rodriguez aware of pt condition.
--- NOTE | 2018-08-26 12:25 | Nephrology Progress Note ---
Assessment/Plan Problem List: (1) Renal failure (ARF), acute on chronic (2) Prostate hypertrophy (3) Urethral stricture (4) UTI (urinary tract infection) (5) Bilateral hydronephrosis (6) Elevated troponin I level (7) Hypertensive kidney disease Assessment Acute on chronic renal failure Likely Diabetic Nephrosclerosis 700 cc urinary retention on bladder scan Anemia of CKD Proteinuria / HypoAlbuminemia likely due to DM BPH HTN Parkinsons bilateral hydro elevated troponin Plan Start Po Bicitra Kidney TONY noted bilateral hydro Uro intervention adjust BP meds Anemia potts check Uric Acid Urine studies up dose flomax per orders check dialntin level Subjective ROS Limited/Unobtainable: No Constitutional: Reports: malaise, weakness Objective Objective Last 24 Hour Vital Signs Date Time Temp Pulse Resp B/P (MAP) Pulse Ox O2 Delivery O2 Flow Rate FiO2 08/26/18 09:32 94 182/109 08/26/18 09:31 94 182/109 08/26/18 08:30 94 20 96 Venturi Mask 8.0 40 08/26/18 08:28 90 Nasal Cannula 4.0 36 08/26/18 08:25 90 20 90 Nasal Cannula 4.0 36 08/26/18 08:24 97 20 90 Nasal Cannula 4.0 36 08/26/18 08:00 98.4 99 20 182/109 (133) 97 08/26/18 07:26 185/104 08/26/18 05:05 185/104 08/26/18 04:00 98.8 102 18 179/104 (129) 96 08/26/18 00:00 99.8 88 18 158/84 (108) 96 08/25/18 23:48 145/86 08/25/18 21:00 Room Air 08/25/18 20:06 84 145/86 08/25/18 20:00 98.6 84 18 145/86 (105) 92 08/25/18 17:18 170/87 08/25/18 16:00 98.1 80 20 170/87 (114) 92 Intake and Output 08/25/18 08/26/18 19:00 07:00 Intake Total 770.0 ml 610.0 ml Output Total 350 ml 2 ml Balance 420.0 ml 608.0 ml Intake Oral 360 ml IV Total 410.0 ml 610.0 ml Output Urine Total 350 ml 2 ml # Voids 2 # Bowel Movements 1 Laboratory Tests 08/25/18 18:50: Urine Color Pale yellow, Urine Appearance Cloudy, Urine pH 5, Urine Specific [place] 1.015, Urine Protein 4+H, Urine Glucose (UA) 2+H, Urine Ketones Negative , Urine Blood 5+H, Urine Nitrite Negative, Urine Bilirubin Negative, Urine Urobilinogen Normal, Urine Leukocyte Esterase 3+H, Urine RBC 15-20H, Urine WBC TntcH, Urine Squamous Epithelial Cells Occasional, Urine Bacteria ManyH, Urine Random Sodium 33 08/26/18 10:10: Sodium Level 136, Potassium Level 3.5, Chloride Level 103, Carbon Dioxide Level 13L, Anion Gap 20H, Blood Urea Nitrogen 54H, Creatinine 3.5H, Estimat Glomerular Filtration Rate , Glucose Level 235H, Uric Acid 4.4, Calcium Level 6.8L, Phosphorus Level 4.7, Magnesium Level 1.6L, Ferritin 110, Total Bilirubin 0.2, Aspartate Amino Transf (AST/SGOT) 34, Alanine Aminotransferase (ALT/SGPT) 14, Alkaline Phosphatase 169H, Troponin I 4.024H, Pro-B-Type Natriuretic Peptide > 74221W, Total Protein 7.5, Albumin 2.3L, Globulin 5.2, Albumin/ Globulin Ratio 0.4L, Folate 70.6H Height (Feet): 5 Height (Inches): 7.00 Weight (Pounds): 165 General Appearance: mild distress Cardiovascular: tachycardia Respiratory/Chest: decreased breath sounds Abdomen: distended Sukhdeep Rodriguez MD August 26, 2018 12:25
--- NOTE | 2018-08-26 12:27 | NUR ---
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 99.8 hr 88 rr 18 b/p 182/109 BUN 54 CR 3.5 MG 1.6 IS: ZOSYN IV ELIQUISE PO DILANTIN TELE STATUS
--- NOTE | 2018-08-26 12:58 | NUR ---
RADIOLOGY DEPT., CHEST X-RAY DONE.-P.DYE
[2018-08-26] MEDS: cloNIDine 0.2mg Tab ORAL SCH ×2 (13:09→23:08)
--- NOTE | 2018-08-26 13:45 | NUR ---
NURSE NOTES: Pt is sleeping comfortably now post administration of ativan. Able to arouse with shaking. Pt pulled off oxygen mask. Applied mask back to face. VSS. Blood pressure 165/90. O2 saturation 100% with a respiratory rate of 22. Pt is SR in the 90s on the monitor. Will continue to monitor patient.
[2018-08-26] MEDS ORDERED: cloNIDine 0.2mg Tab ORAL SCH (14:00)
--- NOTE | 2018-08-26 14:21 | NUR ---
NURSE NOTES: Troponin level > 4. Made Dr. Alejandro aware who ordered one time dose of aspirin and daily aspirin. He also ordered stat EKG and stat 2Decho. Sent the results of the EKG immediately. No new orders. Addendum: 08/26/18 at 1422 by MARCELLUS TAYLOR RN CORRECT TIME: 1138 am 08/26/18
--- NOTE | 2018-08-26 14:30 | Cardiology Report ---
APPROVED REPORT EXAM: Two-dimensional and M-mode echocardiogram with Doppler and color Doppler. INDICATION Other M-Mode DIMENSIONS IVSd0.7 (0.7-1.1cm)Left Atrium (MM)4.0 (1.6-4.0cm) LVDd4.5 (3.5-5.6cm)Aortic Root3.3 (2.0-3.7cm) PWd0.8 (0.7-1.1cm)Aortic Cusp Exc.1.6 (1.5-2.0cm) LVDs2.9 (2.5-4.0cm) PWs1.1 cm Technically difficult study. Left ventricular lazo in the basal regions are contracted normally however the apical segments are akinetic, 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 Mild left ventricular enlargement. No evidence of left ventricular hypertrophy. No evidence of pericardial effusion. All other cardiac chamber sizes are within normal limits. Mild focal aortic valve sclerosis with adequate cusp excursion. Mildly thickened mitral valve leaflets with normal excursion. Mild mitral annulus and aortic root calcification. Pulmonic valve not well visualized. Normal tricuspid valve structure. IVC dilated at 2.2 cm without physiological collapse, is suggestive of RAP -15 mmHg. A color flow and spectral Doppler study was performed and revealed: No aortic regurgitation. Mild mitral regurgitation. Mitral diastolic velocities suggest moderate left ventricular diastolic dysfunction (Grade II). Trace tricuspid regurgitation. Tricuspid systolic velocities suggests peak right ventricular systolic pressure of 28 mmHg. No pulmonic regurgitation present.
--- NOTE | 2018-08-26 14:32 | NUR ---
NURSE NOTES: Called Dr. Deshpande to follow up about pt's plan of care. I made him aware that the patient has yet to void since our prior conversation. He said to keep him NPO and he will come see him as soon as he can. Will continue to monitor patient.
--- NOTE | 2018-08-26 15:37 | Cardiology Progress Note ---
Assessment/Plan Assessment/Plan The patient is seen and examined, full consult note will be dictated shortly. Objective Last 24 Hour Vital Signs Date Time Temp Pulse Resp B/P (MAP) Pulse Ox O2 Delivery O2 Flow Rate FiO2 08/26/18 13:09 182/109 08/26/18 13:09 182/109 08/26/18 12:00 98.4 102 20 186/110 (135) 95 08/26/18 12:00 95 08/26/18 09:32 94 182/109 08/26/18 09:31 94 182/109 08/26/18 09:00 Room Air 08/26/18 08:30 94 20 96 Venturi Mask 8.0 40 08/26/18 08:28 90 Nasal Cannula 4.0 36 08/26/18 08:25 90 20 90 Nasal Cannula 4.0 36 08/26/18 08:24 97 20 90 Nasal Cannula 4.0 36 08/26/18 08:00 98.4 99 20 182/109 (133) 97 08/26/18 07:26 185/104 08/26/18 05:05 185/104 08/26/18 04:00 98.8 102 18 179/104 (129) 96 08/26/18 00:00 99.8 88 18 158/84 (108) 96 08/25/18 23:48 145/86 08/25/18 21:00 Room Air 08/25/18 20:06 84 145/86 08/25/18 20:00 98.6 84 18 145/86 (105) 92 08/25/18 17:18 170/87 08/25/18 16:00 98.1 80 20 170/87 (114) 92 Intake and Output 08/25/18 08/26/18 19:00 07:00 Intake Total 770.0 ml 610.0 ml Output Total 350 ml 2 ml Balance 420.0 ml 608.0 ml Intake Oral 360 ml IV Total 410.0 ml 610.0 ml Output Urine Total 350 ml 2 ml # Voids 2 # Bowel Movements 1 Laboratory Tests Test 08/25/18 18:50 08/26/18 10:10 Urine Color Pale yellow Urine Appearance Cloudy Urine pH 5 (4.5-8.0) Urine Specific [place] 1.015 (1.005-1.035) Urine Protein 4+ (NEGATIVE) H Urine Glucose (UA) 2+ (NEGATIVE) H Urine Ketones Negative (NEGATIVE) Urine Blood 5+ (NEGATIVE) H Urine Nitrite Negative (NEGATIVE) Urine Bilirubin Negative (NEGATIVE) Urine Urobilinogen Normal MG/DL (0.0-1.0) Urine Leukocyte Esterase 3+ (NEGATIVE) H Urine RBC 15-20 /HPF (0 - 0) H Urine WBC Tntc /HPF (0 - 0) H Urine Squamous Epithelial Cells Occasional /LPF Urine Bacteria Many /HPF (NONE) H Urine Random Sodium 33 mmol/L (20-110) Sodium Level 136 MMOL/L (136-145) Potassium Level 3.5 MMOL/L (3.5-5.1) Chloride Level 103 MMOL/L (98-107) Carbon Dioxide Level 13 MMOL/L (21-32) L Anion Gap 20 mmol/L (5-15) H Blood Urea Nitrogen 54 mg/dL (7-18) H Creatinine 3.5 MG/DL (0.55-1.30) H Estimat Glomerular Filtration Rate mL/min (>60) Glucose Level 235 MG/DL (74-106) H Uric Acid 4.4 MG/DL (2.6-7.2) Calcium Level 6.8 MG/DL (8.5-10.1) L Phosphorus Level 4.7 MG/DL (2.5-4.9) Magnesium Level 1.6 MG/DL (1.8-2.4) L Ferritin 110 NG/ML (8-388) Total Bilirubin 0.2 MG/DL (0.2-1.0) Aspartate Amino Transf (AST/SGOT) 34 U/L (15-37) Alanine Aminotransferase (ALT/SGPT) 14 U/L (12-78) Alkaline Phosphatase 169 U/L (46-116) H Troponin I 4.024 ng/mL (0.000-0.056) Pro-B-Type Natriuretic Peptide > 87382 pg/mL (0-125) H Total Protein 7.5 G/DL (6.4-8.2) Albumin 2.3 G/DL (3.4-5.0) L Globulin 5.2 g/dL Albumin/Globulin Ratio 0.4 (1.0-2.7) L Folate 70.6 NG/ML (8.6-58.9) H Microbiology Date/Time Source Procedure Growth Status 08/25/18 18:50 Urine,Clean Catch Urine Culture - Preliminary Resulted Ryan Edward MD August 26, 2018 15:37
[2018-08-26] MEDS: Carvedilol 6.25mg Tab ORAL SCH ×2 (16:00→21:08)
--- NOTE | 2018-08-26 16:00 | NUR ---
NURSE NOTES: Made Dr. Alejandro and Dr. Edward aware of troponin level, EKG, and 2decho. No new orders from Dr. Alejandro and Dr. Edward ordered three medications.
--- NOTE | 2018-08-26 16:04 | NUR ---
NURSE NOTES: Dr. Deshpande saw the patient and when he pushed on the bladder, the pt voided. He said he spoke with Dr. Vila and Dr. Alejandro and no procedure will be done today. The patient is stable enough and to follow up with Dr. Vila tomorrow. Pt is okay to be put back on his previous diet.
[2018-08-26] MEDS: metOLazone 2.5 MG TAB ORAL SCH (16:35)
--- NOTE | 2018-08-26 19:13 | NUR ---
HAND-OFF: Report given to PARAM Pruitt. Pt is in stable condition; plan of care endorsed.
--- NOTE | 2018-08-26 19:14 | NUR ---
NURSE NOTES: Endorsed plan about pt's retention to [place]. He is aware that the doctors do not plan for procedure tonight. Follow up with Dr. Vila tomorrow.
--- NOTE | 2018-08-26 19:15 | NUR ---
NURSE NOTES: Received patient from Sheela VIRGEN. Patient asleep, calm at this time. No s/s of respiratory distress. Bed in low position, locked, call light within reach.
--- NOTE | 2018-08-26 19:45 | Consultation ---
DATE OF CONSULTATION: 08/26/2018 THIS IS A SECOND OPINION CONSULTATION. CONSULTING PHYSICIAN: Pio Deshpande M.D. REFERRING PHYSICIAN: Anthony Alejandro M.D. HISTORY OF PRESENT ILLNESS: This is a 73-year-old male who is a resident of a penitentiary. He has extensive psychiatric history. He was originally brought into the emergency room because of penile discharge. He was noted to have acute kidney injury with elevation of his creatinine. He does have baseline chronic kidney disease. He has a history of BPH with urinary retention, which is again chronic. He was originally evaluated by Dr. Vila in the emergency room. An attempt was made to place a San catheter, which was unsuccessful with resistance presumably secondary to stricture disease or possibly bladder neck contracture and at that time the patient did not want any more manipulation. Since then, he has been on the floor. He has been voiding with high residuals. His creatinine still remains elevated, however, it has remained stable. On ultrasound, he was noted to have bilateral hydronephrosis. At this time, the patient appears comfortable. I do not believe he has any flank pain. Second opinion Urology evaluation was requested. PAST MEDICAL HISTORY: Significant for above. He also has a history of hypertensive heart disease, BPH, seizure disorder. PAST SURGICAL HISTORY: Unknown. CURRENT MEDICATIONS: Here in the hospital, the patient is on Eliquis. He is on aspirin. He is on Celexa, Aricept, Proscar, Nephro-Nemo, Pravachol, Cogentin, Bicitra, Flomax, Zaroxolyn, insulin, Lasix, Coreg, Zosyn, Sinemet, Dilantin, dextrose. ALLERGIES: No known drug allergies. SOCIAL HISTORY: He is a resident of a penitentiary. FAMILY HISTORY: Unable to obtain. REVIEW OF SYSTEMS: Unable to obtain. PHYSICAL EXAMINATION: GENERAL: Elderly male, in no acute distress. VITAL SIGNS: Temperature is 98, blood pressure is 182/109. HEENT: Normocephalic. NECK: Supple. ABDOMEN: Soft. BACK: No CVA tenderness. There is mild suprapubic fullness. There is a condom catheter in place. Urine is grossly yellowish kermit. LABORATORY STUDIES: The patient had UA on admission which showed too numerous to count rbc's, too numerous to count wbc's, many bacteria, positive protein. He had a urine culture at the time of admission, which showed E coli, which was ESBL. His white count 10.5, hemoglobin 10.1, platelets 452. His BUN is 54, creatinine is 3.5, potassium is 3.5. He has remained at that level since admission. I believe his baseline creatinine is a bit lower. DIAGNOSTIC IMAGING STUDIES: The patient had a renal ultrasound yesterday and there was mention of moderate bilateral hydronephrosis. There was also distention of the urinary bladder. There appeared to be a central defect in the prostate gland and the patient may have had previous TURP. There are no other renal imaging studies to compare this to. IMPRESSION: 1. Urinary retention, which is most likely chronic. 2. BPH history with questionable history of previous TURP. 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 4. Renal insufficiency which appears to be acute on chronic. 5. Hydronephrosis which may be chronic. 6. Hematuria. 7. Urinary tract infection. 8. Proteinuria. 9. Small renal calculus mentioned on ultrasound. PLAN AND DISCUSSION: Again the patient does have elevation of his BUN and creatinine with some renal insufficiency with acute on chronic changes. He does have elevated bladder scan residuals of over 500 mL and he has hydronephrosis. Again, all these findings are most likely chronic and I did push on his bladder and did a coude maneuver and I was able to get the urine out and I believe he probably has a flaccid bladder. In any event, the patient may benefit from indwelling San catheter. However, he apparently has a bad stricture or bladder neck contracture and he has got psychiatric history and he probably will not allow any manipulation at the bedside and the most feasible approach would be to probably try to do a cystoscopy and San placement with anesthesia. The patient is not able to make any decisions at this time and he is conserved and consent has to be obtained and this can most likely be done electively. He also probably need to be off his anticoagulation before anything else is done. The only issue with placement of a San catheter is that the patient has an extensive psychiatric history and I am concerned that if the San catheter is placed, he may pull it out causing more urethral trauma. The above was discussed with Dr. Alejandro as well as Dr. Loco Vila. Further intervention will be planned out and again Dr. Vila and his associates may attempt to be from the conservator and try to do a cystoscopic procedure for placement of a San under anesthesia. In the meantime, the patient's renal function will be monitored. Fortunately, he has remained stable. Pio Deshpande M.D. DR: John JOB#: [id number] CC:
--- NOTE | 2018-08-26 20:30 | NUR ---
NURSE NOTES: Patient has a temp of 100.4. Notified Dr. Alejandro and received orders for tylenol 650mg po q 4 hrs prn. Addendum: 08/26/18 at 2218 by Edmond Conrad RN Error: Disregard note about tylenol. It as for a different patient
[2018-08-26] MEDS ORDERED: Metoprolol Tartrate 50mg tab ORAL SCH (21:00)
[2018-08-27] MEDS: Piperacillin/Tazobactam 3.375 GM in NS 110 ML IVPB SCH ×2 (00:56→13:41)
--- NOTE | 2018-08-27 01:45 | Consultation ---
DATE OF CONSULTATION: 08/26/2018 CARDIOLOGY CONSULTATION NOTE: INCOMPLETE DICTATION CONSULTING PHYSICIAN: Ryan Edward M.D. REFERRING PHYSICIAN: Anthony Alejandro M.D. REASON FOR CONSULTATION: Management of acute heart failure. HISTORY OF PRESENT ILLNESS: The patient is a very unfortunate 73-year-old gentleman, resident of a nursing facility, who was initially admitted to this facility on 08/19/2018 for evaluation and management of increased penile discharge. The patient was also noted to be more altered than unusual despite the fact that he has underlying history of dementia. At the time of arrival to this facility, blood pressure was 123/96, heart rate was 73, respirations 24, and O2 saturation 99%. He was afebrile. Laboratory data in the emergency department was significant for mild anemia with hemoglobin and hematocrit of 10.1 and 20.1% respectively, presence of hyponatremia, BUN and creatinine of 110 and 3.4, respectively. The patient had troponin I level of 0.009. He was admitted to non-telemetry bed for evaluation of penile discharge. In the course of the hospitalization, the patient develops shortness of breath and worsening of renal failure. The patient was placed on O2. Blood pressure had risen to 185/105 mmHg and the patient was transferred to telemetry for further evaluation and management. Chest x-ray done on 08/26/2018 revealed patchy ground-glass opacities consistent with congestive heart failure or possible pneumonia. Based on natriuretic peptide, however, it was more in favor of heart failure with level above 35,000. A Cardiology consultation was made at the request of Dr. Alejandro for management of possible acute heart failure. PAST MEDICAL HISTORY: Diabetes mellitus, COPD, hypertension, urinary retention, schizophrenia, Parkinson disease, dementia, and seizure disorder/epilepsy. PAST SURGICAL HISTORY: None. ALLERGIES: No known drug allergies. FAMILY HISTORY: No premature coronary artery disease in first-degree relatives. SOCIAL HISTORY: Resident of a nursing facility. There is no current history of tobacco, alcohol, or illicit drug use. REVIEW OF SYSTEMS: In view of altered level of consciousness, 12-system review could not be done. MEDICATIONS: Acetaminophen 650 mg q.6 h. p.r.n. pain, ProStat 45 mL by mouth three times a day, amlodipine 10 mg p.o. daily, benztropine mesylate 1 mg p.o. twice daily, Sinemet 25-100 one tablet three times a day, Celexa 20 mg p.o. daily, Catapres 0.1 mg q.6 h., 20-10 mg capsule one capsule twice daily, Depakote 250 mg daily, Colace 100 mg p.o. daily, Aricept 10 mg p.o. daily, Proscar 5 mg p.o. daily, Kiarra-Nemo 0.8 mg p.o. three times a day, Novolin insulin 70/30 subcutaneous, Lantus insulin 24 units nightly, levofloxacin 250 mg daily for 7 days, metoprolol 75 mg twice daily, metoprolol 50-25 mg one tablet daily, Resource 2.0 120 mL by mouth daily, Dilantin 100 mg three times a day, Pravachol 85 mg nightly, tamsulosin 0.4 mg p.o. daily, vitamin B complex one tablet daily, and whey protein isolate two twice a day. PHYSICAL EXAMINATION: VITAL SIGNS: Blood pressure was 123/96, pulse 73, respirations 24, O2 saturation 99% on room air, and temperature 97.9 degrees Fahrenheit. GENERAL: The patient is a very delightful 73-year-old gentleman, in no apparent respiratory distress. HEENT: Atraumatic and normocephalic. Anicteric. Pupils are equal, round, and reactive to light and accommodation. NECK: JVP is around 10 cm. No carotid bruit. CARDIOVASCULAR: Normal S1, S2. Regular rate and rhythm. No murmurs, gallops, or rubs. PMI is at fourth intercostal space in the midclavicular line. LUNGS: Clear to auscultation bilaterally. ABDOMEN: Soft, nontender, and nondistended. Positive bowel sounds. EXTREMITIES: No evidence of edema, clubbing, or cyanosis. LABORATORY FINDINGS: Sodium 136, potassium 3.5, chloride 103, bicarbonate 13, BUN 54, and creatinine 3.5. Glucose is 235. Magnesium 1.6. Troponin I was 4.0 from a level of 0.009. ProBNP of 35,000. Total cholesterol 96, LDL 48, and HDL 41. ASSESSMENT AND PLAN: This is a very unfortunate 73-year-old gentleman, seen in Cardiology consultation. 1. 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 Start B-blockers and ACEI, discontinued CCB and other negative inotropics, given hypervolemia and renal failure suggest metolazone and lasix together, nephrology consultation recommended. 2. NSTEMI vs Elevation elevation due to acute heart failure, continue trop I level measurements, may still benefit from cardiac catheterization despite debilitation and worsening of heart failure. 3. SEVEN on CKD. 4. DM 5. HTN Thank you Dr. Alejandro for the courtesy of this consultation. Ryan Edward M.D. DR: KELLE JOB#: [id number] CC: ROCHELLE
[2018-08-27 04:00] VITALS: BP 127/67
[2018-08-27] MEDS: HydrALAZINE 50mg tab ORAL SCH ×3 (05:23→21:11)
[2018-08-27] MEDS: cloNIDine 0.2mg Tab ORAL SCH (05:23)
[2018-08-27] MEDS: Sodium Citrate 30ml ORAL SCH ×3 (05:23→17:48)
[2018-08-27] MEDS: NovoLOG Insulin Flexpen SUBQ SCH ×5 (06:18→21:14)
--- NOTE | 2018-08-27 07:49 | NUR ---
NURSE NOTES: Report received from PARAM Pruitt. Pt shows no signs of distress, no SOB, no pain. AOX1 and confused. Respirations are even and unlabored on RA. IV in RAC 20G SL and L hand 22G SL patent and intact. Condom cath on. Bed is at lowest position, brakes engaged, siderails x3, bed alarm on, and call light within reach. Pt is in stable condition at this time; will continue to monitor.
--- NOTE | 2018-08-27 07:49 | NUR ---
HAND-OFF: Report given to Min RN. Patient in stable condition, plan of care endorsed.
[2018-08-27 08:00] VITALS: BP 130/72
[2018-08-27 08:51] LABS: HEMATOCRIT 22.9 % (42.0-52.0); HEMOGLOBIN 7.8 G/DL (14.2-18.0); MEAN CORPUSCULAR VOLUME 88 FL (80-99); PLATELET COUNT 347 K/UL (150-450); RED CELL DISTRIBUTION WIDTH 13.5 % (11.6-14.8); WHITE BLOOD COUNT 12.2 K/UL (4.8-10.8)
[2018-08-27] MEDS ORDERED: metOLazone 2.5 MG TAB ORAL SCH (09:00)
[2018-08-27] MEDS: Docusate 100mg cap ORAL SCH ×4 (09:00→17:53)
[2018-08-27] MEDS ORDERED: Aspirin Baby 81mg ORAL SCH (09:00)
[2018-08-27 09:07] LABS: ANION GAP 18 mmol/L (5-15); BLOOD UREA NITROGEN 60 mg/dL (7-18); CALCIUM 6.3 MG/DL (8.5-10.1); CARBON DIOXIDE 16 MMOL/L (21-32); CHLORIDE 104 MMOL/L (98-107); CREATININE 3.8 MG/DL (0.55-1.30); POTASSIUM 3.1 MMOL/L (3.5-5.1); SODIUM 138 MMOL/L (136-145)
[2018-08-27 09:11] LABS: ALANINE AMINOTRANSFERASE 9 U/L (12-78); ALBUMIN 1.8 G/DL (3.4-5.0); ALBUMIN/GLOBULIN RATIO 0.4 (1.0-2.7); ALKALINE PHOSPHATASE 150 U/L (46-116); ASPARTATE AMINO TRANSFERASE 34 U/L (15-37); BILIRUBIN,TOTAL 0.2 MG/DL (0.2-1.0); PHOSPHORUS 4.1 MG/DL (2.5-4.9)
--- NOTE | 2018-08-27 09:25 | NUR ---
NURSE NOTES: Dr. Edward called for elevated Gerry-I result from 4.024 to 4.043. Pt denied chest pain or SOB. Strict I&O ordered for elevated Gerry-I R/T diuresing. Order read back and carried out
[2018-08-27] MEDS: Phenytoin 100mg cap ORAL SCH ×3 (09:55→17:52)
[2018-08-27] MEDS: metOLazone 2.5 MG TAB ORAL SCH (09:55)
[2018-08-27] MEDS: Carvedilol 6.25mg Tab ORAL SCH ×2 (09:56→21:10)
[2018-08-27] MEDS: Nuedexta Capsule 20/10mg ORAL SCH ×2 (09:56→21:10)
[2018-08-27] MEDS: Citalopram Hydrobromide 10mg Tab ORAL SCH (09:56)
[2018-08-27] MEDS: Donepezil 10mg tab ORAL SCH (09:56)
[2018-08-27] MEDS: Aspirin Baby 81mg ORAL SCH (09:56)
[2018-08-27] MEDS: Eliquis 5mg tablet ORAL SCH ×2 (09:57→21:11)
[2018-08-27] MEDS: Tamsulosin 0.4mg cap ORAL SCH ×2 (09:57→17:52)
[2018-08-27] MEDS: Nephrovite tab (Rena-Vite) ORAL SCH (09:57)
[2018-08-27] MEDS: Levodopa/Carbidopa 25/100 tab ORAL SCH ×3 (09:57→17:52)
[2018-08-27] MEDS: Benztropine 1mg tab ORAL SCH ×2 (09:57→17:52)
[2018-08-27] MEDS ORDERED: Tubing IV Secondary IV ONE ×3 (10:15→10:20)
[2018-08-27] MEDS ORDERED: D5NS 1000ml IV ONE (10:18)
[2018-08-27] MEDS ORDERED: NS 275ml ONE (10:20)
--- NOTE | 2018-08-27 11:34 | General Progress Note ---
Assessment/Plan Problem List: (1) Acute renal insufficiency ICD Codes: N28.9 - Disorder of kidney and ureter, unspecified SNOMED: 88619077 (2) Leukocytosis ICD Codes: D72.829 - Elevated white blood cell count, unspecified SNOMED: 428160006 (3) Hematuria, gross ICD Codes: R31.0 - Gross hematuria SNOMED: 299310244 (4) Prostate hypertrophy ICD Codes: N40.0 - Benign prostatic hyperplasia without lower urinary tract symptoms SNOMED: 911642820 (5) UTI (urinary tract infection) ICD Codes: N39.0 - Urinary tract infection, site not specified SNOMED: 45182639 (6) Urethral stricture SNOMED: 20943299 (7) AMI (acute myocardial infarction) ICD Codes: I21.9 - Acute myocardial infarction, unspecified SNOMED: 74915352 Status: stable, progressing Assessment/Plan: o2 as needed serial enzymes abx added for possible pna monitor renal fxn cards eval pending eliquis for dvt monitor for bleeding Subjective ROS Limited/Unobtainable: No Constitutional: Reports: malaise, weakness HEENT: Reports: no symptoms Cardiovascular: Reports: no symptoms Respiratory: Reports: cough, shortness of breath Gastrointestinal/Abdominal: Reports: no symptoms Genitourinary: Reports: no symptoms Neurologic/Psychiatric: Reports: no symptoms Endocrine: Reports: no symptoms Hematologic/Lymphatic: Reports: no symptoms Allergies: Coded Allergies: NO KNOWN DRUG ALLERGIES (Unverified Allergy, Unknown, 04/11/14) All Systems: reviewed and negative except above Subjective less congested. denies cp/sob. d/w with . Does not feel pt needs weathers urgently. Also concerned pt would pull out weathers and cause urethral and prostate injury. Objective Last 24 Hour Vital Signs Date Time Temp Pulse Resp B/P (MAP) Pulse Ox O2 Delivery O2 Flow Rate FiO2 08/27/18 09:56 73 130/72 08/27/18 09:00 Venturi Mask 6.0 08/27/18 08:10 97 Nasal Cannula 3.0 32 08/27/18 08:10 73 20 97 Nasal Cannula 3.0 32 08/27/18 08:00 97.5 75 20 130/72 (91) 96 08/27/18 05:23 127/69 08/27/18 05:23 127/69 08/27/18 04:03 73 08/27/18 04:00 99.1 72 18 127/67 (87) 95 08/26/18 23:58 75 08/26/18 23:19 98.1 08/26/18 23:08 118/68 08/26/18 23:05 88 20 118/68 (85) 95 08/26/18 22:01 123/73 08/26/18 22:00 75 123/73 (90) 08/26/18 21:08 79 135/78 08/26/18 21:00 Venturi Mask 6.0 08/26/18 20:00 98.4 79 18 135/78 (97) 96 08/26/18 19:40 74 08/26/18 19:28 95 Nasal Cannula 3.0 32 08/26/18 19:27 86 20 95 Nasal Cannula 3.0 32 08/26/18 16:00 82 08/26/18 16:00 98.0 85 20 141/81 (101) 95 08/26/18 16:00 95 182/109 08/26/18 13:09 182/109 08/26/18 13:09 182/109 08/26/18 12:00 98.4 102 20 186/110 (135) 95 08/26/18 12:00 95 Intake and Output 08/26/18 08/27/18 18:59 06:59 Output Total 250 ml Balance -250 ml Output Urine Total 250 ml # Voids 2 Laboratory Tests 08/27/18 08:35: White Blood Count 12.2H, Red Blood Count 2.60L, Hemoglobin 7.8L, Hematocrit 22.9L, Mean Corpuscular Volume 88, Mean Corpuscular Hemoglobin 29.9, Mean Corpuscular Hemoglobin Concent 34.1, Red Cell Distribution Width 13.5, Platelet Count 347, Mean Platelet Volume 5.0L, Neutrophils (%) (Auto) , Lymphocytes (%) ( Auto) , Monocytes (%) (Auto) , Eosinophils (%) (Auto) , Basophils (%) (Auto) , Differential Total Cells Counted 100, Neutrophils % (Manual) 77H, Lymphocytes % (Manual) 12L, Monocytes % (Manual) 7, Eosinophils % (Manual) 3, Basophils % ( Manual) 1, Band Neutrophils 0, Platelet Estimate Adequate, Platelet Morphology Normal, Polychromasia 1+, Sodium Level 138, Potassium Level 3.1L, Chloride Level 104, Carbon Dioxide Level 16L, Anion Gap 18H, Blood Urea Nitrogen 60H, Creatinine 3.8H, Estimat Glomerular Filtration Rate , Glucose Level 174H, Calcium Level 6.3L, Phosphorus Level 4.1, Magnesium Level 1.6L, Total Bilirubin 0.2, Aspartate Amino Transf (AST/SGOT) 34, Alanine Aminotransferase (ALT/SGPT) 9L, Alkaline Phosphatase 150H, Troponin I 4.043H, Total Protein 6.0L, Albumin 1.8L, Globulin 4.2, Albumin/Globulin Ratio 0.4L Height (Feet): 5 Height (Inches): 7.00 Weight (Pounds): 165 Objective General Appearance: WD/WN, alert Neck: supple Cardiovascular: normal rate, regular rhythm Respiratory/Chest: chest wall non-tender, lungs - rhonchi and wheezes Abdomen: normal bowel sounds, non tender, soft, no organomegaly Edema: no edema noted Arm (L), no edema noted Arm (R), no edema noted Leg (L), no edema noted Leg (R), no edema noted Pedal (L), no edema noted Pedal (R), no edema noted Generalized Anthony Alejandro MD August 27, 2018 11:34
[2018-08-27 12:00] VITALS: BP 133/73
[2018-08-27] MEDS: cefTRIAXone 1 GM in D5W 55 ML IVPB SCH (12:47)
[2018-08-27] MEDS: Albuterol/Ipratropium 3ml neb HHN SCH ×2 (13:30→19:26)
--- NOTE | 2018-08-27 14:13 | Nephrology Progress Note ---
Assessment/Plan Problem List: (1) Renal failure (ARF), acute on chronic (2) Prostate hypertrophy (3) Urethral stricture (4) UTI (urinary tract infection) (5) Bilateral hydronephrosis (6) Elevated troponin I level (7) Hypertensive kidney disease (8) Cardiomyopathy Assessment Acute on chronic renal failure Likely Diabetic Nephrosclerosis 700 cc urinary retention on bladder scan Anemia of CKD Proteinuria / HypoAlbuminemia likely due to DM BPH HTN Parkinsons bilateral hydro elevated troponin Plan stop Lasix to avoid further urinary retension recheck labs in am gastric support optimize cardiac status Start Po Bicitra Kidney TONY noted bilateral hydro Uro intervention adjust BP meds Anemia potts check Uric Acid Urine studies up dose flomax per orders check dialntin level Left ventricular lazo in the basal regions are contracted normally however the apical segments are akinetic, 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 Mild left ventricular enlargement. Subjective ROS Limited/Unobtainable: No Constitutional: Reports: malaise Objective Objective Last 24 Hour Vital Signs Date Time Temp Pulse Resp B/P (MAP) Pulse Ox O2 Delivery O2 Flow Rate FiO2 08/27/18 13:39 80 20 97 Room Air 08/27/18 13:30 78 18 94 Room Air 08/27/18 09:56 73 130/72 08/27/18 09:00 Venturi Mask 6.0 08/27/18 08:10 97 Nasal Cannula 3.0 32 08/27/18 08:10 73 20 97 Nasal Cannula 3.0 32 08/27/18 08:00 97.5 75 20 130/72 (91) 96 08/27/18 05:23 127/69 08/27/18 05:23 127/69 08/27/18 04:03 73 08/27/18 04:00 99.1 72 18 127/67 (87) 95 08/26/18 23:58 75 08/26/18 23:19 98.1 08/26/18 23:08 118/68 08/26/18 23:05 88 20 118/68 (85) 95 08/26/18 22:01 123/73 08/26/18 22:00 75 123/73 (90) 08/26/18 21:08 79 135/78 08/26/18 21:00 Venturi Mask 6.0 08/26/18 20:00 98.4 79 18 135/78 (97) 96 08/26/18 19:40 74 08/26/18 19:28 95 Nasal Cannula 3.0 32 08/26/18 19:27 86 20 95 Nasal Cannula 3.0 32 08/26/18 16:00 82 08/26/18 16:00 98.0 85 20 141/81 (101) 95 08/26/18 16:00 95 182/109 Intake and Output 08/26/18 08/27/18 18:59 06:59 Output Total 250 ml Balance -250 ml Output Urine Total 250 ml # Voids 2 Laboratory Tests 08/27/18 08:35: White Blood Count 12.2H, Red Blood Count 2.60L, Hemoglobin 7.8L, Hematocrit 22.9L, Mean Corpuscular Volume 88, Mean Corpuscular Hemoglobin 29.9, Mean Corpuscular Hemoglobin Concent 34.1, Red Cell Distribution Width 13.5, Platelet Count 347, Mean Platelet Volume 5.0L, Neutrophils (%) (Auto) , Lymphocytes (%) ( Auto) , Monocytes (%) (Auto) , Eosinophils (%) (Auto) , Basophils (%) (Auto) , Differential Total Cells Counted 100, Neutrophils % (Manual) 77H, Lymphocytes % (Manual) 12L, Monocytes % (Manual) 7, Eosinophils % (Manual) 3, Basophils % ( Manual) 1, Band Neutrophils 0, Platelet Estimate Adequate, Platelet Morphology Normal, Polychromasia 1+, Sodium Level 138, Potassium Level 3.1L, Chloride Level 104, Carbon Dioxide Level 16L, Anion Gap 18H, Blood Urea Nitrogen 60H, Creatinine 3.8H, Estimat Glomerular Filtration Rate , Glucose Level 174H, Calcium Level 6.3L, Phosphorus Level 4.1, Magnesium Level 1.6L, Total Bilirubin 0.2, Aspartate Amino Transf (AST/SGOT) 34, Alanine Aminotransferase (ALT/SGPT) 9L, Alkaline Phosphatase 150H, Troponin I 4.043H, Total Protein 6.0L, Albumin 1.8L, Globulin 4.2, Albumin/Globulin Ratio 0.4L Height (Feet): 5 Height (Inches): 7.00 Weight (Pounds): 165 Sukhdeep Rodriguez MD August 27, 2018 14:13
--- NOTE | 2018-08-27 14:20 | NUR ---
NURSE NOTES: Patient removed condom cath x2 and yelled at the nurse to reapply condom cath. Bladder scan noted with 555ml and Dr. Rodriguez notified.
--- NOTE | 2018-08-27 14:30 | NUR ---
NURSE NOTES: Reapplied condom cath
[2018-08-27 14:41] VITALS: BP 126/69
[2018-08-27] MEDS: Nitroglycerin Patch 0.4mg TDERMAL SCH (14:44)
[2018-08-27] MEDS ORDERED: Epoetin Alfa-EPBX (NON ESRD)10,000 unit/ml vial SUBQ SCH (15:00)
[2018-08-27 16:00] VITALS: BP 123/68
--- NOTE | 2018-08-27 16:40 | Pulmonology Progress Note ---
Assessment/Plan Assessment/Plan Pulmonary Consultation HPI: The patient is a 73-year-old male admitted with urinary retention, acute renal failure. He has a history of hypertensive heart disease, BPH, seizure disorder. On initial evaluation, there was a concern about possible urinary retention, noted to have evidence of UTI. The patient had an elevated creatinine of 3.4. He has no prior history of renal insufficiency. On initial evaluation in the emergency room, attempts at placing a catheter were unsuccessful. The patient has currently refused any further attempts for catheter placement. Noted to have features of Taketsubo's cardiomyopathy on Echo, patchy infiltrates on CXR PAST MEDICAL HISTORY: As above. PAST SURGICAL HISTORY: None. CURRENT MEDICATIONS: Reconciled and reviewed. ALLERGIES: None. FAMILY HISTORY: None. SOCIAL HISTORY: Negative for tobacco, ethanol, or drugs. REVIEW OF SYSTEMS: Negative aside from above PHYSICAL EXAMINATION: VITAL SIGNS NOTED GENERAL: The patient is well-developed, no apparent distress. HEART: Regular rate and rhythm. LUNGS: Clear. ABDOMEN: Soft, nontender, nondistended. EXTREMITIES: Without clubbing, cyanosis, or edema. 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 Acute renal failure. 2. Possible obstructive uropathy, UTI 3. BPH. 4. Hypertension. 5. Seizure Disorder 6. Anemia 7. Possible Pneumonia 8. Taketsubo Cardiomyopathy 9. Dementia PLAN: Continue current antibiotics O2 PRN Monitor Labs, transfuse PRN HHN Volume/diuresis per Cardiology and Renal Subjective ROS Limited/Unobtainable: No Allergies: Coded Allergies: NO KNOWN DRUG ALLERGIES (Unverified Allergy, Unknown, 04/11/14) Objective Last 24 Hour Vital Signs Date Time Temp Pulse Resp B/P (MAP) Pulse Ox O2 Delivery O2 Flow Rate FiO2 08/27/18 14:44 126/69 08/27/18 14:44 126/69 08/27/18 14:41 98.0 68 20 126/69 (88) 95 08/27/18 13:39 80 20 97 Room Air 08/27/18 13:30 78 18 94 Room Air 08/27/18 12:00 97.7 71 20 133/73 (93) 95 08/27/18 12:00 76 08/27/18 09:56 73 130/72 08/27/18 09:00 Venturi Mask 6.0 08/27/18 08:10 97 Nasal Cannula 3.0 32 08/27/18 08:10 73 20 97 Nasal Cannula 3.0 32 08/27/18 08:00 97.5 75 20 130/72 (91) 96 08/27/18 08:00 71 08/27/18 05:23 127/69 08/27/18 05:23 127/69 08/27/18 04:03 73 08/27/18 04:00 99.1 72 18 127/67 (87) 95 08/26/18 23:58 75 08/26/18 23:19 98.1 08/26/18 23:08 118/68 08/26/18 23:05 88 20 118/68 (85) 95 08/26/18 22:01 123/73 08/26/18 22:00 75 123/73 (90) 08/26/18 21:08 79 135/78 08/26/18 21:00 Venturi Mask 6.0 08/26/18 20:00 98.4 79 18 135/78 (97) 96 08/26/18 19:40 74 08/26/18 19:28 95 Nasal Cannula 3.0 32 08/26/18 19:27 86 20 95 Nasal Cannula 3.0 32 Intake and Output 08/26/18 08/27/18 19:00 07:00 Output Total 250 ml Balance -250 ml Output Urine Total 250 ml # Voids 2 Microbiology Date/Time Source Procedure Growth Status 08/25/18 18:50 Urine,Clean Catch Urine Culture - Preliminary Gram Negative Carlin Resulted Laboratory Tests 08/27/18 08:35: White Blood Count 12.2H, Red Blood Count 2.60L, Hemoglobin 7.8L, Hematocrit 22.9L, Mean Corpuscular Volume 88, Mean Corpuscular Hemoglobin 29.9, Mean Corpuscular Hemoglobin Concent 34.1, Red Cell Distribution Width 13.5, Platelet Count 347, Mean Platelet Volume 5.0L, Neutrophils (%) (Auto) , Lymphocytes (%) ( Auto) , Monocytes (%) (Auto) , Eosinophils (%) (Auto) , Basophils (%) (Auto) , Differential Total Cells Counted 100, Neutrophils % (Manual) 77H, Lymphocytes % (Manual) 12L, Monocytes % (Manual) 7, Eosinophils % (Manual) 3, Basophils % ( Manual) 1, Band Neutrophils 0, Platelet Estimate Adequate, Platelet Morphology Normal, Polychromasia 1+, Sodium Level 138, Potassium Level 3.1L, Chloride Level 104, Carbon Dioxide Level 16L, Anion Gap 18H, Blood Urea Nitrogen 60H, Creatinine 3.8H, Estimat Glomerular Filtration Rate , Glucose Level 174H, Calcium Level 6.3L, Phosphorus Level 4.1, Magnesium Level 1.6L, Total Bilirubin 0.2, Aspartate Amino Transf (AST/SGOT) 34, Alanine Aminotransferase (ALT/SGPT) 9L, Alkaline Phosphatase 150H, Troponin I 4.043H, Total Protein 6.0L, Albumin 1.8L, Globulin 4.2, Albumin/Globulin Ratio 0.4L Current Medications Medications (Trade) Dose Ordered Sig/Thu Route PRN Reason Start Time Stop Time Status Last Admin Dose Admin Acetaminophen (Tylenol) 650 mg Q6H PRN ORAL For Pain 08/26/18 12:30 09/18/18 12:29 Albuterol/ Ipratropium (Albuterol/ Ipratropium) 3 ml Q4H PRN HHN Shortness of Breath 08/26/18 12:30 08/31/18 12:29 Albuterol/ Ipratropium (Albuterol/ Ipratropium) 3 ml Q6HRT HHN 08/27/18 13:00 09/01/18 12:59 08/27/18 13:30 Apixaban (Eliquis) 5 mg Q12HR ORAL 08/29/18 09:00 09/28/18 08:59 Apixaban (Eliquis) 10 mg Q12HR ORAL 08/26/18 21:00 08/28/18 23:59 08/27/18 09:57 Aspirin (ASA) 81 mg DAILY ORAL 08/27/18 09:00 09/26/18 08:59 08/27/18 09:56 Benztropine Mesylate (Cogentin) 1 mg BID ORAL 08/26/18 18:00 09/19/18 08:59 08/27/18 09:57 Carbidopa/Levodopa (Sinemet ) 1 tab THREE TIMES A DAY ORAL 08/26/18 13:00 09/19/18 08:59 08/27/18 12:19 Carvedilol (Coreg) 6.25 mg EVERY 12 HOURS ORAL 08/26/18 16:00 09/25/18 15:59 08/27/18 09:56 Ceftriaxone Sodium 1 gm/ Dextrose 55 ml @ 110 mls/hr Q24H IVPB 08/27/18 13:00 09/03/18 12:59 08/27/18 12:47 Citalopram Hydrobromide (celeXA) 20 mg DAILY ORAL 08/27/18 09:00 09/19/18 08:59 08/27/18 09:56 Clonidine HCl (Catapres Tab) 0.1 mg EVERY 6 HOURS ORAL 08/27/18 18:00 09/19/18 00:00 Dextromethorphan/ Quinidine (Nuedexta Capsule) 1 cap Q12HR ORAL 08/26/18 21:00 09/19/18 08:59 08/27/18 09:56 Dextrose (Dextrose 50%) 25 ml Q30M PRN IV Hypoglycemia 08/26/18 12:15 09/18/18 22:44 Dextrose (Dextrose 50%) 50 ml Q30M PRN IV Hypoglycemia 08/26/18 12:15 09/18/18 22:44 Docusate Sodium (Colace) 100 mg TID ORAL 08/26/18 13:00 09/19/18 08:59 08/26/18 18:26 Donepezil HCl (Aricept) 10 mg DAILY ORAL 08/27/18 09:00 09/19/18 08:59 08/27/18 09:56 Epoetin Zaid (Epoetin Zaid-EPBX(NON ESRD)) 10,000 unit WED-WED-WED SUBQ 08/29/18 21:00 09/28/18 20:59 Epoetin Zaid (Epoetin Zaid-EPBX(NON ESRD)) 10,000 unit ONCE SUBQ 08/27/18 15:00 08/27/18 17:00 08/27/18 14:44 Finasteride (Proscar) 5 mg DAILY ORAL 08/27/18 09:00 09/19/18 08:59 08/27/18 09:55 Hydralazine HCl (Apresoline) 50 mg Q8HR ORAL 08/26/18 14:00 09/25/18 06:59 08/27/18 14:44 Insulin Aspart (NovoLOG) BEFORE MEALS AND HS SUBQ 08/26/18 16:30 09/19/18 06:29 08/27/18 06:18 Lorazepam (Ativan 2mg/ml 1ml) 2 mg Q2H PRN IV For Anxiety 08/26/18 12:15 09/02/18 10:14 Metolazone (Zaroxolyn) 2.5 mg DAILY ORAL 08/26/18 17:00 09/25/18 16:59 08/27/18 09:55 Nitroglycerin (Ntg) 1 patch Q24H TDERMAL 08/27/18 15:00 09/26/18 14:59 08/27/18 14:44 Pantoprazole (Protonix) 40 mg BID ORAL 08/27/18 14:15 09/26/18 14:14 08/27/18 14:46 Phenytoin (Dilantin) 100 mg THREE TIMES A DAY ORAL 08/26/18 13:00 09/19/18 08:59 08/27/18 12:16 Piperacillin Sod/ Tazobactam Sod 3.375 gm/Sodium Chloride 110 ml @ 27.5 mls/hr Q12H IVPB 08/26/18 13:00 09/02/18 12:59 08/27/18 13:41 Pravastatin Sodium (Pravachol) 80 mg BEDTIME ORAL 08/26/18 21:00 09/19/18 20:59 08/26/18 21:07 Sodium Citrate (Bicitra) 45 ml EVERY 6 HOURS ORAL 08/27/18 18:00 09/24/18 11:59 Tamsulosin HCl (Flomax) 0.4 mg BID ORAL 08/26/18 18:00 09/19/18 20:59 08/27/18 09:57 Vitamin B Complex/ Vit C/Folic Acid (Nephrovite) 1 tab DAILY ORAL 08/27/18 09:00 09/19/18 08:59 08/27/18 09:57 Eric Pettit MD August 27, 2018 16:40
--- NOTE | 2018-08-27 19:15 | Cardiology Progress Note ---
Assessment/Plan Assessment/Plan 1. Most likely Takotsubo's cardiomyopathy, diuretics, continue coreg and hydralazine. BNP in am. 2. NSTEMI vs Elevation elevation due to acute heart failure, continue trop I level measurements, ? cardiac catheterization in view of debilitation. 3. SEVEN on CKD. 4. DM 5. HTN Subjective Subjective Sinus rhythm at rate of 71. Objective Last 24 Hour Vital Signs Date Time Temp Pulse Resp B/P (MAP) Pulse Ox O2 Delivery O2 Flow Rate FiO2 08/27/18 17:52 123/68 08/27/18 16:00 97.7 71 20 123/68 (86) 95 08/27/18 16:00 71 08/27/18 14:44 126/69 08/27/18 14:44 126/69 08/27/18 14:41 98.0 68 20 126/69 (88) 95 08/27/18 13:39 80 20 97 Room Air 08/27/18 13:30 78 18 94 Room Air 08/27/18 12:00 97.7 71 20 133/73 (93) 95 08/27/18 12:00 76 08/27/18 09:56 73 130/72 08/27/18 09:00 Venturi Mask 6.0 08/27/18 08:10 97 Nasal Cannula 3.0 32 08/27/18 08:10 73 20 97 Nasal Cannula 3.0 32 08/27/18 08:00 97.5 75 20 130/72 (91) 96 08/27/18 08:00 71 08/27/18 05:23 127/69 08/27/18 05:23 127/69 08/27/18 04:03 73 08/27/18 04:00 99.1 72 18 127/67 (87) 95 08/26/18 23:58 75 08/26/18 23:19 98.1 08/26/18 23:08 118/68 08/26/18 23:05 88 20 118/68 (85) 95 08/26/18 22:01 123/73 08/26/18 22:00 75 123/73 (90) 08/26/18 21:08 79 135/78 08/26/18 21:00 Venturi Mask 6.0 08/26/18 20:00 98.4 79 18 135/78 (97) 96 08/26/18 19:40 74 08/26/18 19:28 95 Nasal Cannula 3.0 32 08/26/18 19:27 86 20 95 Nasal Cannula 3.0 32 Intake and Output 08/26/18 08/27/18 19:00 07:00 Output Total 250 ml Balance -250 ml Output Urine Total 250 ml # Voids 2 2D Echo: LVEF 35%,Apical balloon synd.RAP 15, Pseudo-normal Physio. Mild MR, RVSP 38 Laboratory Tests Test 08/27/18 08:35 White Blood Count 12.2 K/UL (4.8-10.8) H Red Blood Count 2.60 M/UL (4.70-6.10) L Hemoglobin 7.8 G/DL (14.2-18.0) L Hematocrit 22.9 % (42.0-52.0) L Mean Corpuscular Volume 88 FL (80-99) Mean Corpuscular Hemoglobin 29.9 PG (27.0-31.0) Mean Corpuscular Hemoglobin Concent 34.1 G/DL (32.0-36.0) Red Cell Distribution Width 13.5 % (11.6-14.8) Platelet Count 347 K/UL (150-450) Mean Platelet Volume 5.0 FL (6.5-10.1) L Neutrophils (%) (Auto) % (45.0-75.0) Lymphocytes (%) (Auto) % (20.0-45.0) Monocytes (%) (Auto) % (1.0-10.0) Eosinophils (%) (Auto) % (0.0-3.0) Basophils (%) (Auto) % (0.0-2.0) Differential Total Cells Counted 100 Neutrophils % (Manual) 77 % (45-75) H Lymphocytes % (Manual) 12 % (20-45) L Monocytes % (Manual) 7 % (1-10) Eosinophils % (Manual) 3 % (0-3) Basophils % (Manual) 1 % (0-2) Band Neutrophils 0 % (0-8) Platelet Estimate Adequate Platelet Morphology Normal Polychromasia 1+ Sodium Level 138 MMOL/L (136-145) Potassium Level 3.1 MMOL/L (3.5-5.1) L Chloride Level 104 MMOL/L (98-107) Carbon Dioxide Level 16 MMOL/L (21-32) L Anion Gap 18 mmol/L (5-15) H Blood Urea Nitrogen 60 mg/dL (7-18) H Creatinine 3.8 MG/DL (0.55-1.30) H Estimat Glomerular Filtration Rate mL/min (>60) Glucose Level 174 MG/DL (74-106) H Calcium Level 6.3 MG/DL (8.5-10.1) L Phosphorus Level 4.1 MG/DL (2.5-4.9) Magnesium Level 1.6 MG/DL (1.8-2.4) L Total Bilirubin 0.2 MG/DL (0.2-1.0) Aspartate Amino Transf (AST/SGOT) 34 U/L (15-37) Alanine Aminotransferase (ALT/SGPT) 9 U/L (12-78) L Alkaline Phosphatase 150 U/L (46-116) H Troponin I 4.043 ng/mL (0.000-0.056) Total Protein 6.0 G/DL (6.4-8.2) L Albumin 1.8 G/DL (3.4-5.0) L Globulin 4.2 g/dL Albumin/Globulin Ratio 0.4 (1.0-2.7) L Microbiology Date/Time Source Procedure Growth Status 08/25/18 18:50 Urine,Clean Catch Urine Culture - Preliminary Gram Negative Carlin Resulted Objective NECK: JVP is around 10 cm. No carotid bruit. CARDIOVASCULAR: Normal S1, S2. Regular rate and rhythm. No murmurs, gallops, or rubs. PMI is at fourth intercostal space in the midclavicular line. LUNGS: Clear to auscultation bilaterally. ABDOMEN: Soft, nontender, and nondistended. Positive bowel sounds. EXTREMITIES: No evidence of edema, clubbing, or cyanosis. Ryan Edward MD August 27, 2018 19:15
--- NOTE | 2018-08-27 19:44 | NUR ---
HAND-OFF: Report given to Isaías VIRGEN. Pt remains stable.
--- NOTE | 2018-08-27 19:45 | NUR ---
NURSE NOTES: Received report form Min, RN. Pt is resting in bed. In no acute distress. IV line intact and patent. Bed in lowest position, call light within reach. Will continue plan of care.
[2018-08-27 20:00] VITALS: BP 156/80
[2018-08-27] MEDS ORDERED: cloNIDine 0.2mg Tab ORAL SCH (22:00)
[2018-08-28] VITALS (8 sets, daily range): BP systolic 137–165; BP diastolic 67–103
[2018-08-28] MEDS: Piperacillin/Tazobactam 3.375 GM in NS 110 ML IVPB SCH ×2 (01:13→13:11)
[2018-08-28] MEDS: Albuterol/Ipratropium 3ml neb HHN SCH ×4 (01:36→19:00)
[2018-08-28] MEDS: HydrALAZINE 50mg tab ORAL SCH ×2 (06:39→13:11)
[2018-08-28] MEDS: Sodium Citrate 30ml ORAL SCH ×4 (06:41→17:09)
[2018-08-28] MEDS: NovoLOG Insulin Flexpen SUBQ SCH ×4 (06:42→21:37)
--- NOTE | 2018-08-28 07:10 | NUR ---
HAND-OFF: Report given to PARAM Musa.
--- NOTE | 2018-08-28 07:15 | NUR ---
NURSE NOTES: Received report from Isaías VIRGEN. Pt in bed awake and confused. On room air. IV in Lt posterior arm 22G SL intact asymtomatic running with Zosyn and IV in RAC 18G intact SL. Bed in lowest position locked. On alarm zone 2. On condom cath. Patient does note allow the nurse to touch his blanket. Yelling at the RN. Denied pain. No signs of distress noted. Breathing even and regular. Will continue to plan of care.
[2018-08-28] MEDS: Docusate 100mg cap ORAL SCH ×3 (08:51→17:09)
[2018-08-28] MEDS: Phenytoin 100mg cap ORAL SCH ×3 (08:52→17:09)
[2018-08-28] MEDS: Eliquis 5mg tablet ORAL SCH ×2 (08:53→21:30)
[2018-08-28] MEDS: Aspirin Baby 81mg ORAL SCH (08:53)
[2018-08-28] MEDS: Nuedexta Capsule 20/10mg ORAL SCH ×2 (08:53→21:32)
[2018-08-28] MEDS: Tamsulosin 0.4mg cap ORAL SCH ×2 (08:53→17:09)
[2018-08-28] MEDS: Levodopa/Carbidopa 25/100 tab ORAL SCH ×3 (08:53→17:09)
[2018-08-28] MEDS: Citalopram Hydrobromide 10mg Tab ORAL SCH (08:53)
[2018-08-28] MEDS: Donepezil 10mg tab ORAL SCH (08:54)
[2018-08-28] MEDS: metOLazone 2.5 MG TAB ORAL SCH (08:54)
[2018-08-28] MEDS: Nephrovite tab (Rena-Vite) ORAL SCH (08:54)
[2018-08-28] MEDS: Carvedilol 6.25mg Tab ORAL SCH (08:54)
[2018-08-28] MEDS: Benztropine 1mg tab ORAL SCH (08:54)
--- NOTE | 2018-08-28 10:56 | NUR ---
NURSE NOTES: Patient removed condom catheter and does not allow the RN to reapply it. Checked bladder scan with 455ml now.
--- NOTE | 2018-08-28 11:11 | NUR ---
NURSE NOTES: Bladder scan 486ml now. Pt still refused condom cath
--- NOTE | 2018-08-28 11:27 | General Progress Note ---
Assessment/Plan Problem List: (1) Acute renal insufficiency ICD Codes: N28.9 - Disorder of kidney and ureter, unspecified SNOMED: 72596156 (2) Leukocytosis ICD Codes: D72.829 - Elevated white blood cell count, unspecified SNOMED: 812522870 (3) Hematuria, gross ICD Codes: R31.0 - Gross hematuria SNOMED: 549089090 (4) Prostate hypertrophy ICD Codes: N40.0 - Benign prostatic hyperplasia without lower urinary tract symptoms SNOMED: 559654832 (5) UTI (urinary tract infection) ICD Codes: N39.0 - Urinary tract infection, site not specified SNOMED: 73216419 (6) Urethral stricture SNOMED: 11750744 (7) AMI (acute myocardial infarction) ICD Codes: I21.9 - Acute myocardial infarction, unspecified SNOMED: 21127882 Status: stable, progressing Assessment/Plan: o2 as needed serial enzymes abx monitor cxr monitor renal fxn monitor for bleeding off eliquis due to bleeding concern follow up todays labs may need transfusion Subjective ROS Limited/Unobtainable: No Constitutional: Reports: malaise, weakness HEENT: Reports: no symptoms Cardiovascular: Reports: no symptoms Respiratory: Reports: no symptoms Gastrointestinal/Abdominal: Reports: no symptoms Genitourinary: Reports: no symptoms Neurologic/Psychiatric: Reports: no symptoms Endocrine: Reports: no symptoms Hematologic/Lymphatic: Reports: anemia Allergies: Coded Allergies: NO KNOWN DRUG ALLERGIES (Unverified Allergy, Unknown, 04/11/14) All Systems: reviewed and negative except above Subjective no complaints. denies pain. labs still pending. no fever or chills. no sob. cards and renal appreciated Objective Last 24 Hour Vital Signs Date Time Temp Pulse Resp B/P (MAP) Pulse Ox O2 Delivery O2 Flow Rate FiO2 08/28/18 09:00 Room Air 08/28/18 08:54 85 165/94 08/28/18 08:00 84 08/28/18 08:00 97.6 85 17 165/94 (117) 99 08/28/18 07:31 95 Nasal Cannula 3.0 08/28/18 07:30 Nasal Cannula 08/28/18 07:29 Nasal Cannula 08/28/18 06:42 139/69 08/28/18 06:39 139/69 08/28/18 04:00 98.0 74 20 137/68 (91) 95 08/28/18 04:00 74 08/28/18 01:46 81 18 98 Nasal Cannula 2.0 28 08/28/18 01:36 80 18 94 Nasal Cannula 2.0 28 08/28/18 00:11 139/80 08/28/18 00:00 99.5 76 20 139/80 (99) 96 08/28/18 00:00 76 08/27/18 21:11 155/82 08/27/18 21:10 82 155/82 08/27/18 21:00 Room Air 08/27/18 20:00 75 08/27/18 20:00 98.1 75 20 156/80 (105) 96 08/27/18 19:39 83 18 96 Room Air 08/27/18 19:30 91 Room Air 21 08/27/18 19:29 83 18 91 Room Air 08/27/18 19:29 83 18 91 Room Air 21 08/27/18 17:52 123/68 08/27/18 16:00 97.7 71 20 123/68 (86) 95 08/27/18 16:00 71 08/27/18 14:44 126/69 08/27/18 14:44 126/69 08/27/18 14:41 98.0 68 20 126/69 (88) 95 08/27/18 13:39 80 20 97 Room Air 08/27/18 13:30 78 18 94 Room Air 08/27/18 12:00 97.7 71 20 133/73 (93) 95 08/27/18 12:00 76 Intake and Output 08/27/18 08/28/18 18:59 06:59 Intake Total 370 ml Output Total 300 ml Balance 70 ml Intake Oral 370 ml Output Urine Total 300 ml # Voids 1 # Bowel Movements 2 Height (Feet): 5 Height (Inches): 7.00 Weight (Pounds): 165 Objective General Appearance: WD/WN, alert Neck: supple Cardiovascular: normal rate, regular rhythm Respiratory/Chest: chest wall non-tender, lungs - rhonchi and wheezes Abdomen: normal bowel sounds, non tender, soft, no organomegaly Edema: no edema noted Arm (L), no edema noted Arm (R), no edema noted Leg (L), no edema noted Leg (R), no edema noted Pedal (L), no edema noted Pedal (R), no edema noted Generalized Anthony Alejandro MD August 28, 2018 11:27
[2018-08-28] MEDS: cefTRIAXone 1 GM in D5W 55 ML IVPB SCH (12:09)
[2018-08-28 12:52] LABS: HEMOGLOBIN 7.2 G/DL (14.2-18.0); MEAN CORPUSCULAR VOLUME 89 FL (80-99); PLATELET COUNT 324 K/UL (150-450); RED BLOOD COUNT 2.47 M/UL (4.70-6.10); RED CELL DISTRIBUTION WIDTH 13.7 % (11.6-14.8); WHITE BLOOD COUNT 12.3 K/UL (4.8-10.8)
[2018-08-28 13:20] LABS: ALANINE AMINOTRANSFERASE 7 U/L (12-78); ALBUMIN 1.7 G/DL (3.4-5.0); ALBUMIN/GLOBULIN RATIO 0.3 (1.0-2.7); ALKALINE PHOSPHATASE 125 U/L (46-116); ANION GAP 19 mmol/L (5-15); ASPARTATE AMINO TRANSFERASE 23 U/L (15-37); BILIRUBIN,TOTAL 0.3 MG/DL (0.2-1.0); BLOOD UREA NITROGEN 60 mg/dL (7-18); CALCIUM 6.7 MG/DL (8.5-10.1); CARBON DIOXIDE 14 MMOL/L (21-32); CHLORIDE 100 MMOL/L (98-107); PHOSPHORUS 4.7 MG/DL (2.5-4.9); POTASSIUM 3.2 MMOL/L (3.5-5.1); SODIUM 133 MMOL/L (136-145)
--- NOTE | 2018-08-28 13:48 | NUR ---
CASE MANAGEMENT: REVIEW 08/28/2018 SI:ACUTE KIDNEY FAILURE. T 98 HR 79 RR 17 B/P 163/103 SATS 98% ON RA WBC 12.3 HGB 7.2 HCT 22 NA 133 K 3.2 BUN 60 CR 4 GLU 159 CA 6.7 MG 1.6 ALT 7 ALP 125 TROPONIN 4.043 AND 1.093 IS:BICITRA PO Q6H CATAPRES PO Q6H COREG PO Q12H PRAVACHOL PO QHS FLOMAX PO BID PROTONIX PO BID ASA PO QD CELEXA PO QD ZOSYN IV Q12H ELIQUIS PO Q12H CEFTRIAXONE IV Q24H SINEMET PO TID DILANTIN PO TID TELE STATUS PLAN OF CARE: o2 as needed serial enzymes abx monitor cxr monitor renal fxn monitor for bleeding off eliquis due to bleeding concern follow up todays labs may need transfusion
--- NOTE | 2018-08-28 13:52 | Nephrology Progress Note ---
Assessment/Plan Problem List: (1) Renal failure (ARF), acute on chronic (2) Prostate hypertrophy (3) Urethral stricture (4) UTI (urinary tract infection) (5) Bilateral hydronephrosis (6) Elevated troponin I level (7) Hypertensive kidney disease (8) Cardiomyopathy Assessment Acute on chronic renal failure Likely Diabetic Nephrosclerosis 700 cc urinary retention on bladder scan Anemia of CKD Proteinuria / HypoAlbuminemia likely due to DM BPH HTN Parkinsons bilateral hydro elevated troponin Plan stop Lasix and metholazone to avoid further urinary retention recheck labs in am- transfuse if needed gastric support optimize cardiac status DC cogentin due to retention on dose Urecholine 10 mg adjust BP meds Start Po Bicitra Kidney TONY noted bilateral hydro Uro intervention adjust BP meds Anemia potts check Uric Acid Urine studies up dose flomax per orders check dialntin level Left ventricular lazo in the basal regions are contracted normally however the apical segments are akinetic, 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 Mild left ventricular enlargement. Subjective ROS Limited/Unobtainable: No Constitutional: Reports: malaise Objective Objective Last 24 Hour Vital Signs Date Time Temp Pulse Resp B/P (MAP) Pulse Ox O2 Delivery O2 Flow Rate FiO2 08/28/18 13:11 163/103 08/28/18 12:08 163/103 08/28/18 12:00 98.0 79 17 163/103 (123) 98 08/28/18 12:00 76 08/28/18 09:00 Room Air 08/28/18 08:54 85 165/94 08/28/18 08:00 84 08/28/18 08:00 97.6 85 17 165/94 (117) 99 08/28/18 07:31 95 Nasal Cannula 3.0 08/28/18 07:30 Nasal Cannula 08/28/18 07:29 Nasal Cannula 08/28/18 06:42 139/69 08/28/18 06:39 139/69 08/28/18 04:00 98.0 74 20 137/68 (91) 95 08/28/18 04:00 74 08/28/18 01:46 81 18 98 Nasal Cannula 2.0 28 08/28/18 01:36 80 18 94 Nasal Cannula 2.0 28 5/26/19 00:11 139/80 08/28/18 00:00 99.5 76 20 139/80 (99) 96 08/28/18 00:00 76 08/27/18 21:11 155/82 08/27/18 21:10 82 155/82 08/27/18 21:00 Room Air 08/27/18 20:00 75 08/27/18 20:00 98.1 75 20 156/80 (105) 96 08/27/18 19:39 83 18 96 Room Air 08/27/18 19:30 91 Room Air 21 08/27/18 19:29 83 18 91 Room Air 08/27/18 19:29 83 18 91 Room Air 21 08/27/18 17:52 123/68 08/27/18 16:00 97.7 71 20 123/68 (86) 95 08/27/18 16:00 71 08/27/18 14:44 126/69 08/27/18 14:44 126/69 08/27/18 14:41 98.0 68 20 126/69 (88) 95 Intake and Output 08/27/18 08/28/18 18:59 06:59 Intake Total 370 ml Output Total 300 ml Balance 70 ml Intake Oral 370 ml Output Urine Total 300 ml # Voids 1 # Bowel Movements 2 Laboratory Tests 08/28/18 11:55: White Blood Count 12.3H, Red Blood Count 2.47L, Hemoglobin 7.2L, Hematocrit 22.0L, Mean Corpuscular Volume 89, Mean Corpuscular Hemoglobin 29.3, Mean Corpuscular Hemoglobin Concent 32.8, Red Cell Distribution Width 13.7, Platelet Count 324, Mean Platelet Volume 5.3L, Neutrophils (%) (Auto) , Lymphocytes (%) ( Auto) , Monocytes (%) (Auto) , Eosinophils (%) (Auto) , Basophils (%) (Auto) , Differential Total Cells Counted 100, Neutrophils % (Manual) 85H, Lymphocytes % (Manual) 6L, Monocytes % (Manual) 7, Eosinophils % (Manual) 2, Basophils % ( Manual) 0, Band Neutrophils 0, Platelet Estimate Adequate, Platelet Morphology Normal, Hypochromasia 1+, Sodium Level 133L, Potassium Level 3.2L, Chloride Level 100, Carbon Dioxide Level 14L, Anion Gap 19H, Blood Urea Nitrogen 60H, Creatinine 4.0H, Estimat Glomerular Filtration Rate , Glucose Level 159H, Uric Acid 6.0, Calcium Level 6.7L, Phosphorus Level 4.7, Magnesium Level 1.6L, Total Bilirubin 0.3, Aspartate Amino Transf (AST/SGOT) 23, Alanine Aminotransferase ( ALT/SGPT) 7L, Alkaline Phosphatase 125H, Troponin I 1.093H, C-Reactive Protein, Quantitative [Pending], Pro-B-Type Natriuretic Peptide [Pending], Total Protein 6.7, Albumin 1.7L, Globulin 5.0, Albumin/Globulin Ratio 0.3L Height (Feet): 5 Height (Inches): 7.00 Weight (Pounds): 165 General Appearance: no apparent distress Respiratory/Chest: decreased breath sounds Abdomen: distended Sukhdeep Rodriguez MD August 28, 2018 13:52
[2018-08-28] MEDS ORDERED: HydrALAZINE 25mg tab ORAL PRN (14:00)
[2018-08-28] MEDS ORDERED: Bethanechol 10mg Tab ORAL SCH (14:00)
[2018-08-28] MEDS: HydrALAZINE 25mg tab ORAL SCH ×2 (14:16→21:31)
[2018-08-28] MEDS: Nitroglycerin Patch 0.4mg TDERMAL SCH (14:17)
--- NOTE | 2018-08-28 18:36 | Pulmonology Progress Note ---
Assessment/Plan Assessment/Plan Pulmonary Progress Note HPI: The patient is a 73-year-old male admitted with urinary retention, acute renal failure. He has a history of hypertensive heart disease, BPH, seizure disorder. On initial evaluation, there was a concern about possible urinary retention, noted to have evidence of UTI. The patient had an elevated creatinine of 3.4. Noted to have features of Taketsubo's cardiomyopathy on Echo, patchy infiltrates on CXR PAST MEDICAL HISTORY: As above. PAST SURGICAL HISTORY: None. CURRENT MEDICATIONS: Reconciled and reviewed. ALLERGIES: None. FAMILY HISTORY: None. SOCIAL HISTORY: Negative for tobacco, ethanol, or drugs. REVIEW OF SYSTEMS: Negative aside from above PHYSICAL EXAMINATION: VITAL SIGNS NOTED GENERAL: The patient is well-developed, no apparent distress. HEART: Regular rate and rhythm. LUNGS: Clear. ABDOMEN: Soft, nontender, nondistended. EXTREMITIES: Without clubbing, cyanosis, or edema. ZOO DIRECTOR: No focal signs LABORATORY DATA NOTED: ASSESSMENT: 1. Acute renal failure. 2. Possible obstructive uropathy, UTI 3. BPH. 4. Hypertension. 5. Seizure Disorder 6. Anemia 7. Possible Pneumonia 8. Taketsubo Cardiomyopathy 9. Dementia PLAN: Continue current antibiotics O2 PRN Monitor Labs, transfuse PRN HHN Volume/diuresis per Cardiology and Renal Subjective ROS Limited/Unobtainable: No Allergies: Coded Allergies: NO KNOWN DRUG ALLERGIES (Unverified Allergy, Unknown, 04/11/14) Objective Last 24 Hour Vital Signs Date Time Temp Pulse Resp B/P (MAP) Pulse Ox O2 Delivery O2 Flow Rate FiO2 08/28/18 17:09 137/67 08/28/18 16:00 80 08/28/18 16:00 98.2 76 17 137/67 (90) 98 08/28/18 14:17 149/73 08/28/18 14:16 76 149/73 08/28/18 14:16 149/73 08/28/18 14:15 76 17 149/73 (98) 98 08/28/18 13:48 Nasal Cannula 08/28/18 13:46 Nasal Cannula 08/28/18 13:11 163/103 08/28/18 12:08 163/103 08/28/18 12:00 98.0 79 17 163/103 (123) 98 08/28/18 12:00 76 08/28/18 09:00 Room Air 08/28/18 08:54 85 165/94 08/28/18 08:00 84 08/28/18 08:00 97.6 85 17 165/94 (117) 99 08/28/18 07:31 95 Nasal Cannula 3.0 08/28/18 07:30 Nasal Cannula 08/28/18 07:29 Nasal Cannula 08/28/18 06:42 139/69 08/28/18 06:39 139/69 08/28/18 04:00 98.0 74 20 137/68 (91) 95 08/28/18 04:00 74 08/28/18 01:46 81 18 98 Nasal Cannula 2.0 28 08/28/18 01:36 80 18 94 Nasal Cannula 2.0 28 08/28/18 00:11 139/80 08/28/18 00:00 99.5 76 20 139/80 (99) 96 08/28/18 00:00 76 08/27/18 21:11 155/82 08/27/18 21:10 82 155/82 08/27/18 21:00 Room Air 08/27/18 20:00 75 08/27/18 20:00 98.1 75 20 156/80 (105) 96 08/27/18 19:39 83 18 96 Room Air 08/27/18 19:30 91 Room Air 21 08/27/18 19:29 83 18 91 Room Air 08/27/18 19:29 83 18 91 Room Air 21 Intake and Output 08/27/18 08/28/18 19:00 07:00 Intake Total 370 ml Output Total 300 ml Balance 70 ml Intake Oral 370 ml Output Urine Total 300 ml # Voids 1 # Bowel Movements 2 Microbiology Date/Time Source Procedure Growth Status 08/25/18 18:50 Urine,Clean Catch Urine Culture - Final Escherichia Coli Complete Laboratory Tests 08/28/18 11:55: White Blood Count 12.3H, Red Blood Count 2.47L, Hemoglobin 7.2L, Hematocrit 22.0L, Mean Corpuscular Volume 89, Mean Corpuscular Hemoglobin 29.3, Mean Corpuscular Hemoglobin Concent 32.8, Red Cell Distribution Width 13.7, Platelet Count 324, Mean Platelet Volume 5.3L, Neutrophils (%) (Auto) , Lymphocytes (%) ( Auto) , Monocytes (%) (Auto) , Eosinophils (%) (Auto) , Basophils (%) (Auto) , Differential Total Cells Counted 100, Neutrophils % (Manual) 85H, Lymphocytes % (Manual) 6L, Monocytes % (Manual) 7, Eosinophils % (Manual) 2, Basophils % ( Manual) 0, Band Neutrophils 0, Platelet Estimate Adequate, Platelet Morphology Normal, Hypochromasia 1+, Sodium Level 133L, Potassium Level 3.2L, Chloride Level 100, Carbon Dioxide Level 14L, Anion Gap 19H, Blood Urea Nitrogen 60H, Creatinine 4.0H, Estimat Glomerular Filtration Rate , Glucose Level 159H, Uric Acid 6.0, Calcium Level 6.7L, Phosphorus Level 4.7, Magnesium Level 1.6L, Total Bilirubin 0.3, Aspartate Amino Transf (AST/SGOT) 23, Alanine Aminotransferase ( ALT/SGPT) 7L, Alkaline Phosphatase 125H, Troponin I 1.093H, C-Reactive Protein, Quantitative 19.0H, Pro-B-Type Natriuretic Peptide > 97291S, Total Protein 6.7, Albumin 1.7L, Globulin 5.0, Albumin/Globulin Ratio 0.3L Current Medications Medications (Trade) Dose Ordered Sig/Thu Route PRN Reason Start Time Stop Time Status Last Admin Dose Admin Acetaminophen (Tylenol) 650 mg Q6H PRN ORAL For Pain 08/26/18 12:30 09/18/18 12:29 Albuterol/ Ipratropium (Albuterol/ Ipratropium) 3 ml Q4H PRN HHN Shortness of Breath 08/26/18 12:30 08/31/18 12:29 Albuterol/ Ipratropium (Albuterol/ Ipratropium) 3 ml Q6HRT HHN 08/27/18 13:00 09/01/18 12:59 08/28/18 01:36 Amlodipine Besylate (Norvasc) 5 mg DAILY ORAL 08/28/18 14:00 09/27/18 13:59 08/28/18 14:16 Apixaban (Eliquis) 10 mg Q12HR ORAL 08/26/18 21:00 08/28/18 23:59 08/28/18 08:53 Aspirin (ASA) 81 mg DAILY ORAL 08/27/18 09:00 09/26/18 08:59 08/28/18 08:53 Carbidopa/Levodopa (Sinemet 25/100) 1 tab THREE TIMES A DAY ORAL 08/26/18 13:00 09/19/18 08:59 08/28/18 17:09 Carvedilol (Coreg) 12.5 mg EVERY 12 HOURS ORAL 08/28/18 21:00 09/25/18 15:59 Ceftriaxone Sodium 1 gm/ Dextrose 55 ml @ 110 mls/hr Q24H IVPB 08/27/18 13:00 09/03/18 12:59 08/28/18 12:09 Citalopram Hydrobromide (celeXA) 20 mg DAILY ORAL 08/27/18 09:00 09/19/18 08:59 08/28/18 08:53 Clonidine HCl (Catapres Tab) 0.1 mg EVERY 6 HOURS ORAL 08/27/18 18:00 09/19/18 00:00 08/28/18 17:09 Dextromethorphan/ Quinidine (Nuedexta Capsule) 1 cap Q12HR ORAL 08/26/18 21:00 09/19/18 08:59 08/28/18 08:53 Dextrose (Dextrose 50%) 25 ml Q30M PRN IV Hypoglycemia 08/26/18 12:15 09/18/18 22:44 Dextrose (Dextrose 50%) 50 ml Q30M PRN IV Hypoglycemia 08/26/18 12:15 09/18/18 22:44 Docusate Sodium (Colace) 100 mg TID ORAL 08/26/18 13:00 09/19/18 08:59 08/26/18 18:26 Donepezil HCl (Aricept) 10 mg DAILY ORAL 08/27/18 09:00 09/19/18 08:59 08/28/18 08:54 Epoetin Zaid (Epoetin Zaid-EPBX(NON ESRD)) 10,000 unit WED-WED-WED SUBQ 08/29/18 21:00 09/28/18 20:59 Finasteride (Proscar) 5 mg DAILY ORAL 08/27/18 09:00 09/19/18 08:59 08/28/18 08:54 Hydralazine HCl (Apresoline) 25 mg Q4H PRN ORAL bp over 160 syst 08/28/18 14:00 09/27/18 13:59 Hydralazine HCl (Apresoline) 75 mg Q8HR ORAL 08/28/18 14:00 09/25/18 06:59 08/28/18 14:16 Insulin Aspart (NovoLOG) BEFORE MEALS AND HS SUBQ 08/26/18 16:30 09/19/18 06:29 08/28/18 06:42 Lorazepam (Ativan 2mg/ml 1ml) 2 mg Q2H PRN IV For Anxiety 08/26/18 12:15 09/02/18 10:14 Nitroglycerin (Ntg) 1 patch Q24H TDERMAL 08/27/18 15:00 09/26/18 14:59 08/28/18 14:17 Pantoprazole (Protonix) 40 mg BID ORAL 08/27/18 14:15 09/26/18 14:14 08/28/18 17:09 Phenytoin (Dilantin) 100 mg THREE TIMES A DAY ORAL 08/26/18 13:00 09/19/18 08:59 08/28/18 17:09 Piperacillin Sod/ Tazobactam Sod 3.375 gm/Sodium Chloride 110 ml @ 27.5 mls/hr Q12H IVPB 08/26/18 13:00 09/02/18 12:59 08/28/18 13:11 Pravastatin Sodium (Pravachol) 80 mg BEDTIME ORAL 08/26/18 21:00 09/19/18 20:59 08/27/18 21:10 Sodium Citrate (Bicitra) 45 ml EVERY 6 HOURS ORAL 08/27/18 18:00 09/24/18 11:59 08/28/18 17:09 Tamsulosin HCl (Flomax) 0.4 mg BID ORAL 08/26/18 18:00 09/19/18 20:59 08/28/18 17:09 Vitamin B Complex/ Vit C/Folic Acid (Nephrovite) 1 tab DAILY ORAL 08/27/18 09:00 09/19/18 08:59 08/28/18 08:54 Eric Pettit MD August 28, 2018 18:36
--- NOTE | 2018-08-28 19:35 | NUR ---
HAND-OFF: Report given to Isaías VIRGEN. Pt remains stable.
[2018-08-28] MEDS: Carvedilol 12.5mg tab ORAL SCH (21:31)
--- NOTE | 2018-08-28 23:34 | Cardiology Progress Note ---
Assessment/Plan Assessment/Plan 1. Most likely Takotsubo's cardiomyopathy, off diuretics due to SEVEN on CKD, continue coreg and hydralazine. BNP still >63828. Optimize B-blockers and afterload reducers, ACEI contraindicated due to SEVEN. 2. NSTEMI vs Elevation elevation due to acute heart failure, continue trop I level measurements, ? cardiac catheterization in view of debilitation and SEVEN. 3. SEVEN on CKD. 4. DM 5. HTN Subjective Subjective Sinus rhythm at rate of 78. Objective Last 24 Hour Vital Signs Date Time Temp Pulse Resp B/P (MAP) Pulse Ox O2 Delivery O2 Flow Rate FiO2 08/28/18 21:31 138/65 08/28/18 21:31 78 138/65 08/28/18 21:00 Room Air 08/28/18 20:00 82 08/28/18 20:00 98.0 82 20 149/68 (95) 96 08/28/18 19:25 Nasal Cannula 08/28/18 19:25 Nasal Cannula 08/28/18 19:25 Nasal Cannula 08/28/18 17:09 137/67 08/28/18 16:00 80 08/28/18 16:00 98.2 76 17 137/67 (90) 98 08/28/18 14:17 149/73 08/28/18 14:16 76 149/73 08/28/18 14:16 149/73 08/28/18 14:15 76 17 149/73 (98) 98 08/28/18 13:48 Nasal Cannula 08/28/18 13:46 Nasal Cannula 08/28/18 13:11 163/103 08/28/18 12:08 163/103 08/28/18 12:00 98.0 79 17 163/103 (123) 98 08/28/18 12:00 76 08/28/18 09:00 Room Air 08/28/18 08:54 85 165/94 08/28/18 08:00 84 08/28/18 08:00 97.6 85 17 165/94 (117) 99 08/28/18 07:31 95 Nasal Cannula 3.0 08/28/18 07:30 Nasal Cannula 08/28/18 07:29 Nasal Cannula 08/28/18 06:42 139/69 08/28/18 06:39 139/69 08/28/18 04:00 98.0 74 20 137/68 (91) 95 08/28/18 04:00 74 08/28/18 01:46 81 18 98 Nasal Cannula 2.0 28 08/28/18 01:36 80 18 94 Nasal Cannula 2.0 28 08/28/18 00:11 139/80 08/28/18 00:00 99.5 76 20 139/80 (99) 96 08/28/18 00:00 76 Intake and Output 08/27/18 08/28/18 19:00 07:00 Intake Total 370 ml Output Total 300 ml Balance 70 ml Intake Oral 370 ml Output Urine Total 300 ml # Voids 1 # Bowel Movements 2 2D Echo: LVEF 35%,Apical balloon synd.RAP 15, Pseudo-normal Physio. Mild MR, RVSP 3 Laboratory Tests Test 08/28/18 11:55 White Blood Count 12.3 K/UL (4.8-10.8) H Red Blood Count 2.47 M/UL (4.70-6.10) L Hemoglobin 7.2 G/DL (14.2-18.0) L Hematocrit 22.0 % (42.0-52.0) L Mean Corpuscular Volume 89 FL (80-99) Mean Corpuscular Hemoglobin 29.3 PG (27.0-31.0) Mean Corpuscular Hemoglobin Concent 32.8 G/DL (32.0-36.0) Red Cell Distribution Width 13.7 % (11.6-14.8) Platelet Count 324 K/UL (150-450) Mean Platelet Volume 5.3 FL (6.5-10.1) L Neutrophils (%) (Auto) % (45.0-75.0) Lymphocytes (%) (Auto) % (20.0-45.0) Monocytes (%) (Auto) % (1.0-10.0) Eosinophils (%) (Auto) % (0.0-3.0) Basophils (%) (Auto) % (0.0-2.0) Differential Total Cells Counted 100 Neutrophils % (Manual) 85 % (45-75) H Lymphocytes % (Manual) 6 % (20-45) L Monocytes % (Manual) 7 % (1-10) Eosinophils % (Manual) 2 % (0-3) Basophils % (Manual) 0 % (0-2) Band Neutrophils 0 % (0-8) Platelet Estimate Adequate Platelet Morphology Normal Hypochromasia 1+ Sodium Level 133 MMOL/L (136-145) L Potassium Level 3.2 MMOL/L (3.5-5.1) L Chloride Level 100 MMOL/L (98-107) Carbon Dioxide Level 14 MMOL/L (21-32) L Anion Gap 19 mmol/L (5-15) H Blood Urea Nitrogen 60 mg/dL (7-18) H Creatinine 4.0 MG/DL (0.55-1.30) H Estimat Glomerular Filtration Rate mL/min (>60) Glucose Level 159 MG/DL (74-106) H Uric Acid 6.0 MG/DL (2.6-7.2) Calcium Level 6.7 MG/DL (8.5-10.1) L Phosphorus Level 4.7 MG/DL (2.5-4.9) Magnesium Level 1.6 MG/DL (1.8-2.4) L Total Bilirubin 0.3 MG/DL (0.2-1.0) Aspartate Amino Transf (AST/SGOT) 23 U/L (15-37) Alanine Aminotransferase (ALT/SGPT) 7 U/L (12-78) L Alkaline Phosphatase 125 U/L (46-116) H Troponin I 1.093 ng/mL (0.000-0.056) C-Reactive Protein, Quantitative 19.0 mg/dL (0.00-0.90) H Pro-B-Type Natriuretic Peptide > 73472 pg/mL (0-125) H Total Protein 6.7 G/DL (6.4-8.2) Albumin 1.7 G/DL (3.4-5.0) L Globulin 5.0 g/dL Albumin/Globulin Ratio 0.3 (1.0-2.7) L Objective NECK: JVP is around 10 cm. No carotid bruit. CARDIOVASCULAR: Normal S1, S2. Regular rate and rhythm. No murmurs, gallops, or rubs. PMI is at fourth intercostal space in the midclavicular line. LUNGS: Clear to auscultation bilaterally. ABDOMEN: Soft, nontender, and nondistended. Positive bowel sounds. EXTREMITIES: No evidence of edema, clubbing, or cyanosis. Ryan Edward MD August 28, 2018 23:34
[2018-08-29] VITALS: BP 158/68
[2018-08-29] MEDS: Sodium Citrate 30ml ORAL SCH ×5 (00:25→17:07)
[2018-08-29] MEDS: Piperacillin/Tazobactam 3.375 GM in NS 110 ML IVPB SCH ×2 (01:38→13:00)
[2018-08-29 04:00] VITALS: BP 146/74
[2018-08-29] MEDS: HydrALAZINE 50mg tab ORAL SCH ×3 (06:22→21:30)
[2018-08-29] MEDS: NovoLOG Insulin Flexpen SUBQ SCH ×4 (06:24→21:34)
[2018-08-29 06:49] LABS: HEMATOCRIT 22.3 % (42.0-52.0); HEMOGLOBIN 7.5 G/DL (14.2-18.0); MEAN CORPUSCULAR VOLUME 89 FL (80-99); PLATELET COUNT 324 K/UL (150-450); RED CELL DISTRIBUTION WIDTH 13.7 % (11.6-14.8); WHITE BLOOD COUNT 11.3 K/UL (4.8-10.8)
[2018-08-29] MEDS: Albuterol/Ipratropium 3ml neb HHN SCH ×3 (06:54→20:11)
[2018-08-29 07:18] LABS: ALANINE AMINOTRANSFERASE 7 U/L (12-78); ALBUMIN 1.8 G/DL (3.4-5.0); ALBUMIN/GLOBULIN RATIO 0.4 (1.0-2.7); ALKALINE PHOSPHATASE 122 U/L (46-116); ANION GAP 20 mmol/L (5-15); ASPARTATE AMINO TRANSFERASE 20 U/L (15-37); BILIRUBIN,TOTAL 0.2 MG/DL (0.2-1.0); BLOOD UREA NITROGEN 58 mg/dL (7-18); CARBON DIOXIDE 16 MMOL/L (21-32); CHLORIDE 101 MMOL/L (98-107); CREATININE 4.2 MG/DL (0.55-1.30); PHOSPHORUS 4.8 MG/DL (2.5-4.9); POTASSIUM 3.1 MMOL/L (3.5-5.1); SODIUM 137 MMOL/L (136-145)
--- NOTE | 2018-08-29 07:20 | NUR ---
HAND-OFF: Report given to PARAM Hong.
--- NOTE | 2018-08-29 07:22 | NUR ---
NURSE NOTES: I received the patient awake and resting in bed. Patient alert to name. Bed in the lowest position and call light within reach. Patient does not display any signs of distress or SOB. I will continue to monitor the patient and implement care.
[2018-08-29 07:52] VITALS: BP 142/78
[2018-08-29] MEDS: Citalopram Hydrobromide 10mg Tab ORAL SCH (08:25)
[2018-08-29] MEDS: Aspirin Baby 81mg ORAL SCH (08:25)
[2018-08-29] MEDS: Phenytoin 100mg cap ORAL SCH ×3 (08:25→17:06)
[2018-08-29] MEDS: Tamsulosin 0.4mg cap ORAL SCH ×2 (08:26→17:06)
[2018-08-29] MEDS: Levodopa/Carbidopa 25/100 tab ORAL SCH ×3 (08:26→17:06)
[2018-08-29] MEDS: Docusate 100mg cap ORAL SCH ×3 (08:26→17:06)
[2018-08-29] MEDS: Nuedexta Capsule 20/10mg ORAL SCH ×2 (08:26→21:30)
[2018-08-29] MEDS: Carvedilol 12.5mg tab ORAL SCH ×2 (08:26→21:31)
[2018-08-29] MEDS: Nephrovite tab (Rena-Vite) ORAL SCH (08:26)
[2018-08-29] MEDS: Donepezil 10mg tab ORAL SCH (08:27)
--- NOTE | 2018-08-29 08:51 | General Progress Note ---
Assessment/Plan Problem List: (1) Acute renal insufficiency ICD Codes: N28.9 - Disorder of kidney and ureter, unspecified SNOMED: 11418445 (2) Leukocytosis ICD Codes: D72.829 - Elevated white blood cell count, unspecified SNOMED: 862392588 (3) Hematuria, gross ICD Codes: R31.0 - Gross hematuria SNOMED: 967862376 (4) Prostate hypertrophy ICD Codes: N40.0 - Benign prostatic hyperplasia without lower urinary tract symptoms SNOMED: 553900535 (5) UTI (urinary tract infection) ICD Codes: N39.0 - Urinary tract infection, site not specified SNOMED: 09157724 (6) Urethral stricture SNOMED: 50824014 (7) AMI (acute myocardial infarction) ICD Codes: I21.9 - Acute myocardial infarction, unspecified SNOMED: 74326541 Status: stable, progressing Assessment/Plan: o2 as needed abx repeat cxr monitor renal fxn monitor for bleeding off eliquis due to bleeding concern transfuse 1 unit repeat renal us pt is agreeable to a indwelling cather- states he will not pull it out. follow up todays labs may need transfusion Subjective ROS Limited/Unobtainable: No Constitutional: Reports: malaise, weakness HEENT: Reports: no symptoms Cardiovascular: Reports: edema Respiratory: Reports: no symptoms Gastrointestinal/Abdominal: Reports: no symptoms Genitourinary: Reports: no symptoms Neurologic/Psychiatric: Reports: no symptoms Endocrine: Reports: no symptoms Hematologic/Lymphatic: Reports: anemia Allergies: Coded Allergies: NO KNOWN DRUG ALLERGIES (Unverified Allergy, Unknown, 04/11/14) All Systems: reviewed and negative except above Subjective no complaints. denies pain. labs still pending. no sob. no chest pain . Objective Last 24 Hour Vital Signs Date Time Temp Pulse Resp B/P (MAP) Pulse Ox O2 Delivery O2 Flow Rate FiO2 08/29/18 08:26 142/78 08/29/18 08:26 85 142/78 08/29/18 08:26 85 142/78 08/29/18 07:52 98.0 85 20 142/78 (99) 96 08/29/18 06:54 Nasal Cannula 2.0 08/29/18 06:54 97 Nasal Cannula 2.0 08/29/18 06:54 Nasal Cannula 2.0 08/29/18 06:23 158/87 08/29/18 06:22 158/87 08/29/18 04:00 76 08/29/18 04:00 98.0 76 20 146/74 (98) 96 08/29/18 01:00 Nasal Cannula 08/29/18 01:00 Nasal Cannula 08/29/18 00:26 158/66 08/29/18 00:00 76 08/29/18 00:00 98.3 76 20 158/68 (98) 98 08/28/18 21:31 138/65 08/28/18 21:31 78 138/65 08/28/18 21:00 Room Air 08/28/18 20:00 82 08/28/18 20:00 98.0 82 20 149/68 (95) 96 08/28/18 19:25 Nasal Cannula 08/28/18 19:25 Nasal Cannula 08/28/18 19:25 Nasal Cannula 08/28/18 17:09 137/67 08/28/18 16:00 80 08/28/18 16:00 98.2 76 17 137/67 (90) 98 08/28/18 14:17 149/73 08/28/18 14:16 76 149/73 08/28/18 14:16 149/73 08/28/18 14:15 76 17 149/73 (98) 98 08/28/18 13:48 Nasal Cannula 08/28/18 13:46 Nasal Cannula 08/28/18 13:11 163/103 08/28/18 12:08 163/103 08/28/18 12:00 98.0 79 17 163/103 (123) 98 08/28/18 12:00 76 08/28/18 09:00 Room Air 08/28/18 08:54 85 165/94 Intake and Output 08/28/18 08/29/18 19:00 07:00 Intake Total 450 ml Output Total 300 ml Balance 150 ml Intake Oral 450 ml Output Urine Total 300 ml # Voids 2 2 # Bowel Movements 1 Laboratory Tests 08/28/18 11:55: White Blood Count 12.3H, Red Blood Count 2.47L, Hemoglobin 7.2L, Hematocrit 22.0L, Mean Corpuscular Volume 89, Mean Corpuscular Hemoglobin 29.3, Mean Corpuscular Hemoglobin Concent 32.8, Red Cell Distribution Width 13.7, Platelet Count 324, Mean Platelet Volume 5.3L, Neutrophils (%) (Auto) , Lymphocytes (%) ( Auto) , Monocytes (%) (Auto) , Eosinophils (%) (Auto) , Basophils (%) (Auto) , Differential Total Cells Counted 100, Neutrophils % (Manual) 85H, Lymphocytes % (Manual) 6L, Monocytes % (Manual) 7, Eosinophils % (Manual) 2, Basophils % ( Manual) 0, Band Neutrophils 0, Platelet Estimate Adequate, Platelet Morphology Normal, Hypochromasia 1+, Sodium Level 133L, Potassium Level 3.2L, Chloride Level 100, Carbon Dioxide Level 14L, Anion Gap 19H, Blood Urea Nitrogen 60H, Creatinine 4.0H, Estimat Glomerular Filtration Rate , Glucose Level 159H, Uric Acid 6.0, Calcium Level 6.7L, Phosphorus Level 4.7, Magnesium Level 1.6L, Total Bilirubin 0.3, Aspartate Amino Transf (AST/SGOT) 23, Alanine Aminotransferase ( ALT/SGPT) 7L, Alkaline Phosphatase 125H, Troponin I 1.093H, C-Reactive Protein, Quantitative 19.0H, Pro-B-Type Natriuretic Peptide > 05296I, Total Protein 6.7, Albumin 1.7L, Globulin 5.0, Albumin/Globulin Ratio 0.3L 08/29/18 04:45: White Blood Count 11.3H, Red Blood Count 2.50L, Hemoglobin 7.5L, Hematocrit 22.3L, Mean Corpuscular Volume 89, Mean Corpuscular Hemoglobin 29.8, Mean Corpuscular Hemoglobin Concent 33.5, Red Cell Distribution Width 13.7, Platelet Count 324, Mean Platelet Volume 5.2L, Neutrophils (%) (Auto) , Lymphocytes (%) ( Auto) , Monocytes (%) (Auto) , Eosinophils (%) (Auto) , Basophils (%) (Auto) , Differential Total Cells Counted 100, Neutrophils % (Manual) 83H, Lymphocytes % (Manual) 8L, Monocytes % (Manual) 6, Eosinophils % (Manual) 3, Basophils % ( Manual) 0, Band Neutrophils 0, Platelet Estimate Adequate, Platelet Morphology Normal, Sodium Level 137, Potassium Level 3.1L, Chloride Level 101, Carbon Dioxide Level 16L, Anion Gap 20H, Blood Urea Nitrogen 58H, Creatinine 4.2H, Estimat Glomerular Filtration Rate , Glucose Level 149H, Calcium Level 7.0L, Phosphorus Level 4.8, Magnesium Level 2.1, Total Bilirubin 0.2, Aspartate Amino Transf (AST/SGOT) 20, Alanine Aminotransferase (ALT/SGPT) 7L, Alkaline Phosphatase 122H, Troponin I 0.994H, Pro-B-Type Natriuretic Peptide > 91108U, Total Protein 6.9, Albumin 1.8L, Globulin 5.1, Albumin/Globulin Ratio 0.4L, Anisocytosis 1+ Height (Feet): 5 Height (Inches): 7.00 Weight (Pounds): 165 Objective General Appearance: WD/WN, alert Neck: supple Cardiovascular: normal rate, regular rhythm Respiratory/Chest: chest wall non-tender, lungs - rhonchi and wheezes Abdomen: normal bowel sounds, non tender, soft, no organomegaly Edema: 1+ edema Anthony Alejandro MD August 29, 2018 08:51
[2018-08-29] MEDS ORDERED: Imdur 30mg tab ORAL SCH (09:00)
[2018-08-29] MEDS ORDERED: Eliquis 5mg tablet ORAL SCH ×2 (09:00)
--- NOTE | 2018-08-29 09:18 | Pulmonology Progress Note ---
Assessment/Plan Assessment/Plan 1. Acute renal failure. 2. UTI 3. BPH. 4. Hypertension. 5. Seizure Disorder 6. Anemia 7. Likely pulmonary edema 8. Taketsubo Cardiomyopathy 9. Dementia PLAN diurese oxygen monitor imaging and labs respiratory care follow up exam cards follow up impression, plan, and exam edited and reviewed in detail care discussed with RN Subjective Allergies: Coded Allergies: NO KNOWN DRUG ALLERGIES (Unverified Allergy, Unknown, 04/11/14) Subjective events noted trying to diurese no distress Objective Last 24 Hour Vital Signs Date Time Temp Pulse Resp B/P (MAP) Pulse Ox O2 Delivery O2 Flow Rate FiO2 08/29/18 09:00 Room Air 08/29/18 08:26 142/78 08/29/18 08:26 85 142/78 08/29/18 08:26 85 142/78 08/29/18 07:52 98.0 85 20 142/78 (99) 96 08/29/18 06:54 Nasal Cannula 2.0 28 08/29/18 06:54 97 Nasal Cannula 2.0 28 08/29/18 06:54 Nasal Cannula 2.0 28 08/29/18 06:23 158/87 08/29/18 06:22 158/87 08/29/18 04:00 76 08/29/18 04:00 98.0 76 20 146/74 (98) 96 08/29/18 01:00 Nasal Cannula 08/29/18 01:00 Nasal Cannula 08/29/18 00:26 158/66 08/29/18 00:00 76 08/29/18 00:00 98.3 76 20 158/68 (98) 98 08/28/18 21:31 138/65 08/28/18 21:31 78 138/65 08/28/18 21:00 Room Air 08/28/18 20:00 82 08/28/18 20:00 98.0 82 20 149/68 (95) 96 08/28/18 19:25 Nasal Cannula 08/28/18 19:25 Nasal Cannula 08/28/18 19:25 Nasal Cannula 08/28/18 17:09 137/67 08/28/18 16:00 80 08/28/18 16:00 98.2 76 17 137/67 (90) 98 08/28/18 14:17 149/73 08/28/18 14:16 76 149/73 08/28/18 14:16 149/73 08/28/18 14:15 76 17 149/73 (98) 98 08/28/18 13:48 Nasal Cannula 08/28/18 13:46 Nasal Cannula 08/28/18 13:11 163/103 08/28/18 12:08 163/103 08/28/18 12:00 98.0 79 17 163/103 (123) 98 08/28/18 12:00 76 Intake and Output 08/28/18 08/29/18 19:00 07:00 Intake Total 450 ml Output Total 300 ml Balance 150 ml Intake Oral 450 ml Output Urine Total 300 ml # Voids 2 2 # Bowel Movements 1 Objective WDWN NAD clear breath sounds bilaterally without rhonchi or wheeze [id number] without MRG NABS nontender no HSM no CC mild edema nonfocal Laboratory Tests 08/28/18 11:55: White Blood Count 12.3H, Red Blood Count 2.47L, Hemoglobin 7.2L, Hematocrit 22.0L, Mean Corpuscular Volume 89, Mean Corpuscular Hemoglobin 29.3, Mean Corpuscular Hemoglobin Concent 32.8, Red Cell Distribution Width 13.7, Platelet Count 324, Mean Platelet Volume 5.3L, Neutrophils (%) (Auto) , Lymphocytes (%) ( Auto) , Monocytes (%) (Auto) , Eosinophils (%) (Auto) , Basophils (%) (Auto) , Differential Total Cells Counted 100, Neutrophils % (Manual) 85H, Lymphocytes % (Manual) 6L, Monocytes % (Manual) 7, Eosinophils % (Manual) 2, Basophils % ( Manual) 0, Band Neutrophils 0, Platelet Estimate Adequate, Platelet Morphology Normal, Hypochromasia 1+, Sodium Level 133L, Potassium Level 3.2L, Chloride Level 100, Carbon Dioxide Level 14L, Anion Gap 19H, Blood Urea Nitrogen 60H, Creatinine 4.0H, Estimat Glomerular Filtration Rate , Glucose Level 159H, Uric Acid 6.0, Calcium Level 6.7L, Phosphorus Level 4.7, Magnesium Level 1.6L, Total Bilirubin 0.3, Aspartate Amino Transf (AST/SGOT) 23, Alanine Aminotransferase ( ALT/SGPT) 7L, Alkaline Phosphatase 125H, Troponin I 1.093H, C-Reactive Protein, Quantitative 19.0H, Pro-B-Type Natriuretic Peptide > 57265T, Total Protein 6.7, Albumin 1.7L, Globulin 5.0, Albumin/Globulin Ratio 0.3L 08/29/18 04:45: White Blood Count 11.3H, Red Blood Count 2.50L, Hemoglobin 7.5L, Hematocrit 22.3L, Mean Corpuscular Volume 89, Mean Corpuscular Hemoglobin 29.8, Mean Corpuscular Hemoglobin Concent 33.5, Red Cell Distribution Width 13.7, Platelet Count 324, Mean Platelet Volume 5.2L, Neutrophils (%) (Auto) , Lymphocytes (%) ( Auto) , Monocytes (%) (Auto) , Eosinophils (%) (Auto) , Basophils (%) (Auto) , Differential Total Cells Counted 100, Neutrophils % (Manual) 83H, Lymphocytes % (Manual) 8L, Monocytes % (Manual) 6, Eosinophils % (Manual) 3, Basophils % ( Manual) 0, Band Neutrophils 0, Platelet Estimate Adequate, Platelet Morphology Normal, Sodium Level 137, Potassium Level 3.1L, Chloride Level 101, Carbon Dioxide Level 16L, Anion Gap 20H, Blood Urea Nitrogen 58H, Creatinine 4.2H, Estimat Glomerular Filtration Rate , Glucose Level 149H, Calcium Level 7.0L, Phosphorus Level 4.8, Magnesium Level 2.1, Total Bilirubin 0.2, Aspartate Amino Transf (AST/SGOT) 20, Alanine Aminotransferase (ALT/SGPT) 7L, Alkaline Phosphatase 122H, Troponin I 0.994H, Pro-B-Type Natriuretic Peptide > 76138S, Total Protein 6.9, Albumin 1.8L, Globulin 5.1, Albumin/Globulin Ratio 0.4L, Anisocytosis 1+ Current Medications Medications (Trade) Dose Ordered Sig/Thu Route PRN Reason Start Time Stop Time Status Last Admin Dose Admin Acetaminophen (Tylenol) 650 mg Q6H PRN ORAL For Pain 08/26/18 12:30 09/18/18 12:29 Albuterol/ Ipratropium (Albuterol/ Ipratropium) 3 ml Q4H PRN HHN Shortness of Breath 08/26/18 12:30 08/31/18 12:29 Albuterol/ Ipratropium (Albuterol/ Ipratropium) 3 ml Q6HRT HHN 08/27/18 13:00 09/01/18 12:59 08/28/18 01:36 Amlodipine Besylate (Norvasc) 5 mg DAILY ORAL 08/28/18 14:00 09/27/18 13:59 08/29/18 08:26 Aspirin (ASA) 81 mg DAILY ORAL 08/27/18 09:00 09/26/18 08:59 08/29/18 08:25 Carbidopa/Levodopa (Sinemet 25/) 1 tab THREE TIMES A DAY ORAL 08/26/18 13:00 09/19/18 08:59 08/29/18 08:26 Carvedilol (Coreg) 12.5 mg EVERY 12 HOURS ORAL 08/28/18 21:00 09/25/18 15:59 08/29/18 08:26 Ceftriaxone Sodium 1 gm/ Dextrose 55 ml @ 110 mls/hr Q24H IVPB 08/27/18 13:00 09/03/18 12:59 08/28/18 12:09 Citalopram Hydrobromide (celeXA) 20 mg DAILY ORAL 08/27/18 09:00 09/19/18 08:59 08/29/18 08:25 Clonidine HCl (Catapres Tab) 0.1 mg EVERY 6 HOURS ORAL 08/27/18 18:00 09/19/18 00:00 08/29/18 06:23 Dextromethorphan/ Quinidine (Nuedexta Capsule) 1 cap Q12HR ORAL 08/26/18 21:00 09/19/18 08:59 08/29/18 08:26 Dextrose (Dextrose 50%) 25 ml Q30M PRN IV Hypoglycemia 08/26/18 12:15 09/18/18 22:44 Dextrose (Dextrose 50%) 50 ml Q30M PRN IV Hypoglycemia 08/26/18 12:15 09/18/18 22:44 Docusate Sodium (Colace) 100 mg TID ORAL 08/26/18 13:00 09/19/18 08:59 08/29/18 08:26 Donepezil HCl (Aricept) 10 mg DAILY ORAL 08/27/18 09:00 09/19/18 08:59 08/29/18 08:27 Epoetin Zaid (Epoetin Zaid-EPBX(NON ESRD)) 10,000 unit WED SUBQ 08/29/18 21:00 09/28/18 20:59 Finasteride (Proscar) 5 mg DAILY ORAL 08/27/18 09:00 09/19/18 08:59 08/29/18 08:25 Hydralazine HCl (Apresoline) 25 mg Q4H PRN ORAL bp over 160 syst 08/28/18 14:00 09/27/18 13:59 Hydralazine HCl (Apresoline) 100 mg Q8HR ORAL 08/29/18 06:00 09/28/18 05:59 08/29/18 06:22 Insulin Aspart (NovoLOG) BEFORE MEALS AND HS SUBQ 08/26/18 16:30 09/19/18 06:29 08/29/18 06:24 Isosorbide Mononitrate (Imdur) 30 mg DAILY ORAL 08/29/18 09:00 09/28/18 08:59 08/29/18 08:26 Lorazepam (Ativan 2mg/ml 1ml) 2 mg Q2H PRN IV For Anxiety 08/26/18 12:15 09/02/18 10:14 Nitroglycerin (Ntg) 1 patch Q24H TDERMAL 08/27/18 15:00 09/26/18 14:59 08/28/18 14:17 Pantoprazole (Protonix) 40 mg BID ORAL 08/27/18 14:15 09/26/18 14:14 08/29/18 08:26 Phenytoin (Dilantin) 100 mg THREE TIMES A DAY ORAL 08/26/18 13:00 09/19/18 08:59 08/29/18 08:25 Piperacillin Sod/ Tazobactam Sod 3.375 gm/Sodium Chloride 110 ml @ 27.5 mls/hr Q12H IVPB 08/26/18 13:00 09/02/18 12:59 08/29/18 01:38 Potassium Chloride (K-Dur) 40 meq ONCE ORAL 08/29/18 09:00 08/29/18 10:00 Pravastatin Sodium (Pravachol) 80 mg BEDTIME ORAL 08/26/18 21:00 09/19/18 20:59 08/28/18 21:31 Sodium Citrate (Bicitra) 45 ml EVERY 6 HOURS ORAL 08/27/18 18:00 09/24/18 11:59 08/29/18 06:17 Tamsulosin HCl (Flomax) 0.4 mg BID ORAL 08/26/18 18:00 09/19/18 20:59 08/29/18 08:26 Vitamin B Complex/ Vit C/Folic Acid (Nephrovite) 1 tab DAILY ORAL 08/27/18 09:00 09/19/18 08:59 08/29/18 08:26 Hari Ogden MD August 29, 2018 09:18
--- NOTE | 2018-08-29 09:25 | NUR ---
NURSE NOTES: Dr. Alejandro entered an order to transfuse 1 unit of PRBCs. The patient has a legal guardian. Dr. Alejandro was notified about the process of obtaining consent for a blood transfusion. Dr. Alejandro said he would document the procedure as emergent.
[2018-08-29 11:58] VITALS: BP 142/76
[2018-08-29] MEDS: cefTRIAXone 1 GM in D5W 55 ML IVPB SCH (12:18)
--- NOTE | 2018-08-29 12:22 | Nephrology Progress Note ---
Assessment/Plan Problem List: (1) Renal failure (ARF), acute on chronic (2) Prostate hypertrophy (3) Urethral stricture (4) UTI (urinary tract infection) (5) Bilateral hydronephrosis (6) Elevated troponin I level (7) Hypertensive kidney disease (8) Cardiomyopathy Assessment Acute on chronic renal failure Likely Diabetic Nephrosclerosis urinary retention on bladder scan Anemia of CKD Proteinuria / HypoAlbuminemia likely due to DM BPH HTN Parkinsons bilateral hydro elevated troponin Plan stop Lasix and metholazone to avoid further urinary retention recheck labs in am- transfuse if needed gastric support optimize cardiac status DC cogentin due to retention on dose Urecholine 10 mg adjust BP meds Start Po Bicitra Kidney TONY noted bilateral hydro Uro intervention adjust BP meds Anemia potts check Uric Acid Urine studies up dose flomax per orders check dialntin level Left ventricular lazo in the basal regions are contracted normally however the apical segments are akinetic, 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 Mild left ventricular enlargement. Subjective ROS Limited/Unobtainable: No Constitutional: Reports: malaise Objective Objective Last 24 Hour Vital Signs Date Time Temp Pulse Resp B/P (MAP) Pulse Ox O2 Delivery O2 Flow Rate FiO2 08/29/18 12:09 142/76 08/29/18 11:58 98.1 72 20 142/76 (98) 97 08/29/18 09:00 Room Air 08/29/18 08:26 142/78 08/29/18 08:26 85 142/78 08/29/18 08:26 85 142/78 08/29/18 07:52 98.0 85 20 142/78 (99) 96 08/29/18 07:48 87 08/29/18 06:54 Nasal Cannula 2.0 28 08/29/18 06:54 97 Nasal Cannula 2.0 28 08/29/18 06:54 Nasal Cannula 2.0 28 08/29/18 06:23 158/87 08/29/18 06:22 158/87 08/29/18 04:00 76 08/29/18 04:00 98.0 76 20 146/74 (98) 96 08/29/18 01:00 Nasal Cannula 08/29/18 01:00 Nasal Cannula 08/29/18 00:26 158/66 08/29/18 00:00 76 08/29/18 00:00 98.3 76 20 158/68 (98) 98 08/28/18 21:31 138/65 08/28/18 21:31 78 138/65 08/28/18 21:00 Room Air 08/28/18 20:00 82 08/28/18 20:00 98.0 82 20 149/68 (95) 96 08/28/18 19:25 Nasal Cannula 08/28/18 19:25 Nasal Cannula 08/28/18 19:25 Nasal Cannula 08/28/18 17:09 137/67 08/28/18 16:00 80 08/28/18 16:00 98.2 76 17 137/67 (90) 98 08/28/18 14:17 149/73 08/28/18 14:16 76 149/73 08/28/18 14:16 149/73 08/28/18 14:15 76 17 149/73 (98) 98 08/28/18 13:48 Nasal Cannula 08/28/18 13:46 Nasal Cannula 08/28/18 13:11 163/103 Intake and Output 08/28/18 08/29/18 18:59 06:59 Intake Total 450 ml Output Total 300 ml Balance 150 ml Intake Oral 450 ml Output Urine Total 300 ml # Voids 2 2 # Bowel Movements 1 Laboratory Tests 08/29/18 04:45: White Blood Count 11.3H, Red Blood Count 2.50L, Hemoglobin 7.5L, Hematocrit 22.3L, Mean Corpuscular Volume 89, Mean Corpuscular Hemoglobin 29.8, Mean Corpuscular Hemoglobin Concent 33.5, Red Cell Distribution Width 13.7, Platelet Count 324, Mean Platelet Volume 5.2L, Neutrophils (%) (Auto) , Lymphocytes (%) ( Auto) , Monocytes (%) (Auto) , Eosinophils (%) (Auto) , Basophils (%) (Auto) , Differential Total Cells Counted 100, Neutrophils % (Manual) 83H, Lymphocytes % (Manual) 8L, Monocytes % (Manual) 6, Eosinophils % (Manual) 3, Basophils % ( Manual) 0, Band Neutrophils 0, Platelet Estimate Adequate, Platelet Morphology Normal, Anisocytosis 1+, Sodium Level 137, Potassium Level 3.1L, Chloride Level 101, Carbon Dioxide Level 16L, Anion Gap 20H, Blood Urea Nitrogen 58H, Creatinine 4.2H, Estimat Glomerular Filtration Rate , Glucose Level 149H, Calcium Level 7.0L, Phosphorus Level 4.8, Magnesium Level 2.1, Total Bilirubin 0.2, Aspartate Amino Transf (AST/SGOT) 20, Alanine Aminotransferase (ALT/SGPT) 7L, Alkaline Phosphatase 122H, Troponin I 0.994H, Pro-B-Type Natriuretic Peptide > 98618C, Total Protein 6.9, Albumin 1.8L, Globulin 5.1, Albumin/ Globulin Ratio 0.4L Height (Feet): 5 Height (Inches): 7.00 Weight (Pounds): 165 General Appearance: no apparent distress Cardiovascular: normal rate Respiratory/Chest: decreased breath sounds Abdomen: distended Objective no change Sukhdeep Rodriguez MD August 29, 2018 12:22
--- NOTE | 2018-08-29 13:04 | NUR ---
NURSE NOTES: I called the public guardian to make her aware of the patient's emergent need for a blood transfusion and left a message. I also called [phone], the number given in the public guardian's voicemail for emergency situations. There was not an answer or the option to leave a message. I called the boiling house hand to make her aware of the situation and if there are any other steps I can take to be able to administer the blood. I will await the house supervisors return call.
[2018-08-29] MEDS: Nitroglycerin Patch 0.4mg TDERMAL SCH (14:50)
--- NOTE | 2018-08-29 14:55 | Cardiology Report ---
APPROVED REPORT EKG Measurement Heart [id number] Sinus tachycardia Left axis deviation Septal infarct, age undetermined Prolonged QT Abnormal ECG
[2018-08-29 16:00] VITALS: BP 162/79
--- NOTE | 2018-08-29 16:42 | NUR ---
NURSE NOTES: Patient's 1300 dose of Zosyn was not administed due to the patient having only one IV site and a blood transfusion in progress. A second IV site was attempted but not successful. The patient is a hard stick and another IV site was not obtainable.
--- NOTE | 2018-08-29 19:28 | NUR ---
HAND-OFF: Report given to PARAM Metz.
--- NOTE | 2018-08-29 19:30 | NUR ---
NURSE NOTES: Received report form PARAM Hong. Pt is resting in bed. In no acute distress. IV line intact and patent. Bed in lowest position, call light within reach. Will continue plan of care.
[2018-08-29 20:00] VITALS: BP 153/69
[2018-08-29] MEDS: Epoetin Alfa-EPBX (NON ESRD)10,000 unit/ml vial SUBQ SCH (21:28)
--- NOTE | 2018-08-29 22:23 | Cardiology Progress Note ---
Assessment/Plan Assessment/Plan 1. Most likely Takotsubo's cardiomyopathy, off diuretics due to SEVEN on CKD, optimize coreg and Imdur, continue hydralazine. 2. NSTEMI vs Elevation elevation due to acute heart failure, continue trop I level measurements, ? cardiac catheterization in view of debilitation and SEVEN. 3. SEVEN on CKD, creat up to 4.2. 4. DM 5. HTN Subjective Subjective Sinus rhythm at rate of 76. Objective Last 24 Hour Vital Signs Date Time Temp Pulse Resp B/P (MAP) Pulse Ox O2 Delivery O2 Flow Rate FiO2 08/29/18 21:31 76 158/88 08/29/18 21:30 158/88 08/29/18 20:11 87 18 97 Nasal Cannula 2.0 08/29/18 20:11 97 Nasal Cannula 2.0 08/29/18 17:06 162/79 08/29/18 16:00 97.9 71 20 162/79 (106) 97 08/29/18 15:45 68 08/29/18 14:50 139/67 08/29/18 14:50 139/67 08/29/18 12:59 Nasal Cannula 2.0 08/29/18 12:59 Nasal Cannula 2.0 28 08/29/18 12:09 142/76 08/29/18 11:58 98.1 72 20 142/76 (98) 97 08/29/18 11:54 70 08/29/18 09:00 Room Air 08/29/18 08:26 142/78 08/29/18 08:26 85 142/78 08/29/18 08:26 85 142/78 08/29/18 07:52 98.0 85 20 142/78 (99) 96 08/29/18 07:48 87 08/29/18 06:54 Nasal Cannula 2.0 08/29/18 06:54 97 Nasal Cannula 2.0 28 08/29/18 06:54 Nasal Cannula 2.0 08/29/18 06:23 158/87 08/29/18 06:22 158/87 08/29/18 04:00 76 08/29/18 04:00 98.0 76 20 146/74 (98) 96 08/29/18 01:00 Nasal Cannula 08/29/18 01:00 Nasal Cannula 08/29/18 00:26 158/66 5/27/19 00:00 76 08/29/18 00:00 98.3 76 20 158/68 (98) 98 Intake and Output 08/28/18 08/29/18 19:00 07:00 Intake Total 450 ml Output Total 300 ml Balance 150 ml Intake Oral 450 ml Output Urine Total 300 ml # Voids 2 2 # Bowel Movements 1 2D Echo: LVEF 35%,Apical balloon synd.RAP 15, Pseudo-normal Physio. Mild MR, RVSP 3 Laboratory Tests Test 08/29/18 04:45 White Blood Count 11.3 K/UL (4.8-10.8) H Red Blood Count 2.50 M/UL (4.70-6.10) L Hemoglobin 7.5 G/DL (14.2-18.0) L Hematocrit 22.3 % (42.0-52.0) L Mean Corpuscular Volume 89 FL (80-99) Mean Corpuscular Hemoglobin 29.8 PG (27.0-31.0) Mean Corpuscular Hemoglobin Concent 33.5 G/DL (32.0-36.0) Red Cell Distribution Width 13.7 % (11.6-14.8) Platelet Count 324 K/UL (150-450) Mean Platelet Volume 5.2 FL (6.5-10.1) L Neutrophils (%) (Auto) % (45.0-75.0) Lymphocytes (%) (Auto) % (20.0-45.0) Monocytes (%) (Auto) % (1.0-10.0) Eosinophils (%) (Auto) % (0.0-3.0) Basophils (%) (Auto) % (0.0-2.0) Differential Total Cells Counted 100 Neutrophils % (Manual) 83 % (45-75) H Lymphocytes % (Manual) 8 % (20-45) L Monocytes % (Manual) 6 % (1-10) Eosinophils % (Manual) 3 % (0-3) Basophils % (Manual) 0 % (0-2) Band Neutrophils 0 % (0-8) Platelet Estimate Adequate Platelet Morphology Normal Anisocytosis 1+ Sodium Level 137 MMOL/L (136-145) Potassium Level 3.1 MMOL/L (3.5-5.1) L Chloride Level 101 MMOL/L (98-107) Carbon Dioxide Level 16 MMOL/L (21-32) L Anion Gap 20 mmol/L (5-15) H Blood Urea Nitrogen 58 mg/dL (7-18) H Creatinine 4.2 MG/DL (0.55-1.30) H Estimat Glomerular Filtration Rate mL/min (>60) Glucose Level 149 MG/DL (74-106) H Calcium Level 7.0 MG/DL (8.5-10.1) L Phosphorus Level 4.8 MG/DL (2.5-4.9) Magnesium Level 2.1 MG/DL (1.8-2.4) Total Bilirubin 0.2 MG/DL (0.2-1.0) Aspartate Amino Transf (AST/SGOT) 20 U/L (15-37) Alanine Aminotransferase (ALT/SGPT) 7 U/L (12-78) L Alkaline Phosphatase 122 U/L (46-116) H Troponin I 0.994 ng/mL (0.000-0.056) Pro-B-Type Natriuretic Peptide > 90762 pg/mL (0-125) H Total Protein 6.9 G/DL (6.4-8.2) Albumin 1.8 G/DL (3.4-5.0) L Globulin 5.1 g/dL Albumin/Globulin Ratio 0.4 (1.0-2.7) L Objective NECK: JVP is around 10 cm. No carotid bruit. CARDIOVASCULAR: Normal S1, S2. Regular rate and rhythm. No murmurs, gallops, or rubs. PMI is at fourth intercostal space in the midclavicular line. LUNGS: Clear to auscultation bilaterally. ABDOMEN: Soft, nontender, and nondistended. Positive bowel sounds. EXTREMITIES: No evidence of edema, clubbing, or cyanosis. Ryan Edward MD August 29, 2018 22:23
[2018-08-30] VITALS (7 sets, daily range): BP systolic 125–177; BP diastolic 64–96
[2018-08-30] MEDS: Sodium Citrate 30ml ORAL SCH ×3 (00:23→12:34)
[2018-08-30] MEDS: Piperacillin/Tazobactam 3.375 GM in NS 110 ML IVPB SCH ×2 (00:53→13:51)
[2018-08-30] MEDS: Albuterol/Ipratropium 3ml neb HHN SCH ×4 (01:15→19:33)
[2018-08-30] MEDS: HydrALAZINE 50mg tab ORAL SCH ×3 (06:32→21:25)
[2018-08-30] MEDS: NovoLOG Insulin Flexpen SUBQ SCH ×4 (06:34→20:26)
--- NOTE | 2018-08-30 07:15 | NUR ---
HAND-OFF: Report given to PARAM Hong.
--- NOTE | 2018-08-30 07:20 | NUR ---
NURSE NOTES: I received the patient awake and resting in bed. Patient alert to name and verbal. Bed in the lowest position and call light within reach. I will continue to monitor the patient and implement care.
--- NOTE | 2018-08-30 07:50 | Pulmonology Progress Note ---
Assessment/Plan Assessment/Plan 1. Acute renal failure. 2. UTI 3. BPH. 4. Hypertension. 5. Seizure Disorder 6. Anemia 7. Likely pulmonary edema 8. Taketsubo Cardiomyopathy 9. Dementia PLAN diurese as able oxygen monitor imaging and labs repeat cxr respiratory care follow up exam cards follow up for optimization oxygen needs reviewed impression, plan, and exam edited and reviewed in detail care discussed with RN Subjective Allergies: Coded Allergies: NO KNOWN DRUG ALLERGIES (Unverified Allergy, Unknown, 04/11/14) Subjective events noted comfortable no distress Objective Last 24 Hour Vital Signs Date Time Temp Pulse Resp B/P (MAP) Pulse Ox O2 Delivery O2 Flow Rate FiO2 08/30/18 06:33 160/89 08/30/18 06:32 160/89 08/30/18 04:00 65 08/30/18 04:00 98.4 65 18 134/71 (92) 96 08/30/18 01:15 80 18 97 Nasal Cannula 2.0 28 08/30/18 00:25 145/64 08/30/18 00:00 98.1 65 20 145/64 (91) 96 08/30/18 00:00 65 08/29/18 21:31 76 158/88 08/29/18 21:30 158/88 08/29/18 21:00 Room Air 08/29/18 20:21 87 18 98 Nasal Cannula 2.0 28 08/29/18 20:11 87 18 97 Nasal Cannula 2.0 28 08/29/18 20:11 97 Nasal Cannula 2.0 28 08/29/18 20:00 75 08/29/18 20:00 98.1 75 20 153/69 (97) 96 08/29/18 17:06 162/79 08/29/18 16:00 97.9 71 20 162/79 (106) 97 08/29/18 15:45 68 08/29/18 14:50 139/67 08/29/18 14:50 139/67 08/29/18 12:59 Nasal Cannula 2.0 28 08/29/18 12:59 Nasal Cannula 2.0 28 08/29/18 12:09 142/76 08/29/18 11:58 98.1 72 20 142/76 (98) 97 08/29/18 11:54 70 08/29/18 09:00 Room Air 08/29/18 08:26 142/78 08/29/18 08:26 85 142/78 08/29/18 08:26 85 142/78 08/29/18 07:52 98.0 85 20 142/78 (99) 96 Intake and Output 08/29/18 08/30/18 19:00 07:00 Intake Total 120 ml 755 ml Balance 120 ml 755 ml Intake Oral 120 ml 480 ml Blood Product 275 ml # Voids 4 # Bowel Movements 2 Objective WDWN NAD clear breath sounds bilaterally without rhonchi or wheeze [id number] without MRG NABS nontender no HSM no CC mild edema nonfocal reviewed and edited Laboratory Tests 08/29/18 22:30: Stool Occult Blood [Pending] Current Medications Medications (Trade) Dose Ordered Sig/Thu Route PRN Reason Start Time Stop Time Status Last Admin Dose Admin Acetaminophen (Tylenol) 650 mg Q6H PRN ORAL For Pain 08/26/18 12:30 09/18/18 12:29 Albuterol/ Ipratropium (Albuterol/ Ipratropium) 3 ml Q4H PRN HHN Shortness of Breath 08/26/18 12:30 08/31/18 12:29 Albuterol/ Ipratropium (Albuterol/ Ipratropium) 3 ml Q6HRT HHN 08/27/18 13:00 09/01/18 12:59 08/30/18 01:15 Amlodipine Besylate (Norvasc) 5 mg DAILY ORAL 08/28/18 14:00 09/27/18 13:59 08/29/18 08:26 Aspirin (ASA) 81 mg DAILY ORAL 08/27/18 09:00 09/26/18 08:59 08/29/18 08:25 Carbidopa/Levodopa (Sinemet 25/100) 1 tab THREE TIMES A DAY ORAL 08/26/18 13:00 09/19/18 08:59 08/29/18 17:06 Carvedilol (Coreg) 25 mg EVERY 12 HOURS ORAL 08/30/18 09:00 09/29/18 08:59 Ceftriaxone Sodium 1 gm/ Dextrose 55 ml @ 110 mls/hr Q24H IVPB 08/27/18 13:00 09/03/18 12:59 08/29/18 12:18 Citalopram Hydrobromide (celeXA) 20 mg DAILY ORAL 08/27/18 09:00 09/19/18 08:59 08/29/18 08:25 Clonidine HCl (Catapres Tab) 0.1 mg EVERY 6 HOURS ORAL 08/27/18 18:00 09/19/18 00:00 08/30/18 06:33 Dextromethorphan/ Quinidine (Nuedexta Capsule) 1 cap Q12HR ORAL 08/26/18 21:00 09/19/18 08:59 08/29/18 21:30 Dextrose (Dextrose 50%) 25 ml Q30M PRN IV Hypoglycemia 08/26/18 12:15 09/18/18 22:44 Dextrose (Dextrose 50%) 50 ml Q30M PRN IV Hypoglycemia 08/26/18 12:15 09/18/18 22:44 Docusate Sodium (Colace) 100 mg TID ORAL 08/26/18 13:00 09/19/18 08:59 08/29/18 17:06 Donepezil HCl (Aricept) 10 mg DAILY ORAL 08/27/18 09:00 09/19/18 08:59 08/29/18 08:27 Epoetin Zaid (Epoetin Zaid-EPBX(NON ESRD)) 10,000 unit WED-WED-WED SUBQ 08/29/18 21:00 09/28/18 20:59 08/29/18 21:28 Finasteride (Proscar) 5 mg DAILY ORAL 08/27/18 09:00 09/19/18 08:59 08/29/18 08:25 Hydralazine HCl (Apresoline) 25 mg Q4H PRN ORAL bp over 160 syst 08/28/18 14:00 09/27/18 13:59 Hydralazine HCl (Apresoline) 100 mg Q8HR ORAL 08/29/18 06:00 09/28/18 05:59 08/30/18 06:32 Insulin Aspart (NovoLOG) BEFORE MEALS AND HS SUBQ 08/26/18 16:30 09/19/18 06:29 08/30/18 06:34 Isosorbide Mononitrate (Imdur) 60 mg DAILY ORAL 08/30/18 09:00 09/29/18 08:59 Lorazepam (Ativan 2mg/ml 1ml) 2 mg Q2H PRN IV For Anxiety 08/26/18 12:15 09/02/18 10:14 Nitroglycerin (Ntg) 1 patch Q24H TDERMAL 08/27/18 15:00 09/26/18 14:59 08/29/18 14:50 Pantoprazole (Protonix) 40 mg BID ORAL 08/27/18 14:15 09/26/18 14:14 08/29/18 17:06 Phenytoin (Dilantin) 100 mg THREE TIMES A DAY ORAL 08/26/18 13:00 09/19/18 08:59 08/29/18 17:06 Piperacillin Sod/ Tazobactam Sod 3.375 gm/Sodium Chloride 110 ml @ 27.5 mls/hr Q12H IVPB 08/26/18 13:00 09/02/18 12:59 08/30/18 00:53 Pravastatin Sodium (Pravachol) 80 mg BEDTIME ORAL 08/26/18 21:00 09/19/18 20:59 08/29/18 21:29 Sodium Citrate (Bicitra) 45 ml EVERY 6 HOURS ORAL 08/27/18 18:00 09/24/18 11:59 08/30/18 06:32 Tamsulosin HCl (Flomax) 0.4 mg BID ORAL 08/26/18 18:00 09/19/18 20:59 08/29/18 17:06 Vitamin B Complex/ Vit C/Folic Acid (Nephrovite) 1 tab DAILY ORAL 08/27/18 09:00 09/19/18 08:59 08/29/18 08:26 Hari Ogden MD August 30, 2018 07:50
--- NOTE | 2018-08-30 07:56 | General Progress Note ---
Assessment/Plan Problem List: (1) Acute renal insufficiency ICD Codes: N28.9 - Disorder of kidney and ureter, unspecified SNOMED: 66588026 (2) Leukocytosis ICD Codes: D72.829 - Elevated white blood cell count, unspecified SNOMED: 746083414 (3) Hematuria, gross ICD Codes: R31.0 - Gross hematuria SNOMED: 165247796 (4) Prostate hypertrophy ICD Codes: N40.0 - Benign prostatic hyperplasia without lower urinary tract symptoms SNOMED: 055408491 (5) UTI (urinary tract infection) ICD Codes: N39.0 - Urinary tract infection, site not specified SNOMED: 27150376 (6) Urethral stricture SNOMED: 02773427 (7) AMI (acute myocardial infarction) ICD Codes: I21.9 - Acute myocardial infarction, unspecified SNOMED: 27729257 Status: stable, progressing Assessment/Plan: o2 as needed abx repeat cxr monitor renal fxn monitor for bleeding off eliquis due to bleeding concern transfuse 1 unit repeat renal us pt is agreeable to a indwelling cather- states he will not pull it out. follow up todays labs Subjective ROS Limited/Unobtainable: No Constitutional: Reports: malaise, weakness HEENT: Reports: no symptoms Cardiovascular: Reports: no symptoms Respiratory: Reports: no symptoms Gastrointestinal/Abdominal: Reports: no symptoms Genitourinary: Reports: no symptoms Neurologic/Psychiatric: Reports: anxiety Endocrine: Reports: no symptoms Hematologic/Lymphatic: Reports: anemia Allergies: Coded Allergies: NO KNOWN DRUG ALLERGIES (Unverified Allergy, Unknown, 04/11/14) All Systems: reviewed and negative except above Subjective no complaints. denies pain. sp prbc transfusion yesterday. labs still pending. no sob. no chest pain . Objective Last 24 Hour Vital Signs Date Time Temp Pulse Resp B/P (MAP) Pulse Ox O2 Delivery O2 Flow Rate FiO2 08/30/18 06:33 160/89 08/30/18 06:32 160/89 08/30/18 04:00 65 08/30/18 04:00 98.4 65 18 134/71 (92) 96 08/30/18 01:15 80 18 97 Nasal Cannula 2.0 28 08/30/18 00:25 145/64 08/30/18 00:00 98.1 65 20 145/64 (91) 96 08/30/18 00:00 65 08/29/18 21:31 76 158/88 08/29/18 21:30 158/88 08/29/18 21:00 Room Air 08/29/18 20:21 87 18 98 Nasal Cannula 2.0 08/29/18 20:11 87 18 97 Nasal Cannula 2.0 28 08/29/18 20:11 97 Nasal Cannula 2.0 28 08/29/18 20:00 75 08/29/18 20:00 98.1 75 20 153/69 (97) 96 08/29/18 17:06 162/79 08/29/18 16:00 97.9 71 20 162/79 (106) 97 08/29/18 15:45 68 08/29/18 14:50 139/67 08/29/18 14:50 139/67 08/29/18 12:59 Nasal Cannula 2.0 08/29/18 12:59 Nasal Cannula 2.0 08/29/18 12:09 142/76 08/29/18 11:58 98.1 72 20 142/76 (98) 97 08/29/18 11:54 70 08/29/18 09:00 Room Air 08/29/18 08:26 142/78 08/29/18 08:26 85 142/78 08/29/18 08:26 85 142/78 Intake and Output 08/29/18 08/30/18 19:00 07:00 Intake Total 120 ml 755 ml Balance 120 ml 755 ml Intake Oral 120 ml 480 ml Blood Product 275 ml # Voids 4 # Bowel Movements 2 Laboratory Tests 08/29/18 22:30: Stool Occult Blood [Pending] Height (Feet): 5 Height (Inches): 7.00 Weight (Pounds): 165 Objective General Appearance: WD/WN, alert Neck: supple Cardiovascular: normal rate, regular rhythm Respiratory/Chest: chest wall non-tender, lungs - rhonchi and wheezes Abdomen: normal bowel sounds, non tender, soft, no organomegaly Edema: 1+ edema Anthony Alejandro MD August 30, 2018 07:56
[2018-08-30 08:24] LABS: BASOPHILS % (AUTO) 0.8 % (0.0-2.0); EOSINOPHILS % (AUTO) 3.9 % (0.0-3.0); HEMATOCRIT 33.4 % (42.0-52.0); HEMOGLOBIN 11.5 G/DL (14.2-18.0); LYMPHOCYTES % (AUTO) 7.2 % (20.0-45.0); MEAN CORPUSCULAR VOLUME 87 FL (80-99); MONOCYTES % (AUTO) 8.1 % (1.0-10.0); NEUTROPHILS % (AUTO) 79.9 % (45.0-75.0); PLATELET COUNT 328 K/UL (150-450); RED BLOOD COUNT 3.84 M/UL (4.70-6.10); RED CELL DISTRIBUTION WIDTH 13.6 % (11.6-14.8); WHITE BLOOD COUNT 9.5 K/UL (4.8-10.8)
[2018-08-30] MEDS: Nephrovite tab (Rena-Vite) ORAL SCH (08:25)
[2018-08-30] MEDS: Imdur 30mg tab ORAL SCH (08:26)
[2018-08-30] MEDS: Aspirin Baby 81mg ORAL SCH (08:26)
[2018-08-30] MEDS: Donepezil 10mg tab ORAL SCH (08:26)
[2018-08-30] MEDS: Tamsulosin 0.4mg cap ORAL SCH ×2 (08:26→17:36)
[2018-08-30] MEDS: Nuedexta Capsule 20/10mg ORAL SCH ×2 (08:26→20:24)
[2018-08-30] MEDS: Docusate 100mg cap ORAL SCH ×3 (08:27→17:37)
[2018-08-30] MEDS: Citalopram Hydrobromide 10mg Tab ORAL SCH (08:27)
[2018-08-30] MEDS: Carvedilol 25mg Tab ORAL SCH ×2 (08:27→20:25)
[2018-08-30] MEDS: Levodopa/Carbidopa 25/100 tab ORAL SCH ×3 (08:27→17:37)
[2018-08-30] MEDS: Phenytoin 100mg cap ORAL SCH ×3 (08:27→17:36)
[2018-08-30 08:55] LABS: ALANINE AMINOTRANSFERASE 7 U/L (12-78); ALBUMIN 1.9 G/DL (3.4-5.0); ALBUMIN/GLOBULIN RATIO 0.3 (1.0-2.7); ALKALINE PHOSPHATASE 130 U/L (46-116); ANION GAP 16 mmol/L (5-15); ASPARTATE AMINO TRANSFERASE 18 U/L (15-37); BILIRUBIN,TOTAL 0.3 MG/DL (0.2-1.0); BLOOD UREA NITROGEN 53 mg/dL (7-18); CALCIUM 7.5 MG/DL (8.5-10.1); CARBON DIOXIDE 22 MMOL/L (21-32); CHLORIDE 104 MMOL/L (98-107); CREATININE 3.9 MG/DL (0.55-1.30); POTASSIUM 3.2 MMOL/L (3.5-5.1); SODIUM 141 MMOL/L (136-145)
[2018-08-30 09:29] LABS: PHOSPHORUS 4.9 MG/DL (2.5-4.9)
--- NOTE | 2018-08-30 09:30 | NUR ---
NURSE NOTES: hvac/r service technician witnessed a seizure on the monitor. I went to the patient's room and the patient was not responsive. Blood pressure was elevated, and O2 saturation was within normal range. A rapid response was called. The PARTS AND SERVICE MANAGER came to the room and assessed the patient. Dr. Alejandro gave orders for ativan and an ABG blood draw. The orders were entered. The patient's blood sugar was within normal range and blood pressure came down to 138/68, HR 71 and O2 saturation at 98%. Patient sleeping in bed and no new interventions at this time. I will continue to monitor the patient and implement care. Addendum: 08/30/18 at 0947 by EASTON MONROE RN Disregard above note, it was entered in error.
[2018-08-30] MEDS: cefTRIAXone 1 GM in D5W 55 ML IVPB SCH (12:35)
--- NOTE | 2018-08-30 12:44 | Diagnostic Imaging Report ---
Indication: Cough Comparison: 08/26/2018 A single view chest radiograph was obtained. Findings: Current examination demonstrating mixed alveolar and interstitial opacities with slight improvement since the last exam. Correlate clinically. Heart size is normal. IMPRESSION: Interstitial opacities probably due to CHF. Some interval improvement since the last exam. Correlate clinically.
--- NOTE | 2018-08-30 13:39 | Nephrology Progress Note ---
Assessment/Plan Problem List: (1) Renal failure (ARF), acute on chronic (2) Prostate hypertrophy (3) Urethral stricture (4) UTI (urinary tract infection) (5) Bilateral hydronephrosis (6) Elevated troponin I level (7) Hypertensive kidney disease (8) Cardiomyopathy Assessment Acute on chronic renal failure Likely Diabetic Nephrosclerosis urinary retention on bladder scan Anemia of CKD Proteinuria / HypoAlbuminemia likely due to DM BPH HTN Parkinsons bilateral hydro elevated troponin Plan trial Urecholine if OK by Uro stop Lasix and metholazone to avoid further urinary retention recheck labs in am- transfuse if needed gastric support optimize cardiac status DC cogentin due to retention on dose Urecholine 10 mg adjust BP meds Start Po Bicitra Kidney TONY noted bilateral hydro Uro intervention adjust BP meds Anemia potts check Uric Acid Urine studies up dose flomax per orders check dialntin level Left ventricular lazo in the basal regions are contracted normally however the apical segments are akinetic, 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 Mild left ventricular enlargement. Subjective ROS Limited/Unobtainable: No Constitutional: Reports: malaise, weakness Objective Objective Last 24 Hour Vital Signs Date Time Temp Pulse Resp B/P (MAP) Pulse Ox O2 Delivery O2 Flow Rate FiO2 08/30/18 13:25 89 18 98 Nasal Cannula 2.0 08/30/18 13:16 82 18 97 Nasal Cannula 2.0 08/30/18 12:35 159/96 08/30/18 12:00 97.3 78 20 159/96 (117) 95 08/30/18 09:00 Room Air 08/30/18 08:27 86 177/94 08/30/18 08:26 177/94 08/30/18 08:26 86 177/94 08/30/18 08:00 86 18 98 Nasal Cannula 2.0 08/30/18 08:00 97.3 80 20 177/94 (121) 94 08/30/18 07:54 97 Nasal Cannula 2.0 08/30/18 07:54 82 18 97 Nasal Cannula 2.0 08/30/18 07:51 82 08/30/18 06:33 160/89 08/30/18 06:32 160/89 08/30/18 04:00 65 08/30/18 04:00 98.4 65 18 134/71 (92) 96 08/30/18 01:15 80 18 97 Nasal Cannula 2.0 28 08/30/18 00:25 145/64 08/30/18 00:00 98.1 65 20 145/64 (91) 96 08/30/18 00:00 65 08/29/18 21:31 76 158/88 08/29/18 21:30 158/88 08/29/18 21:00 Room Air 08/29/18 20:21 87 18 98 Nasal Cannula 2.0 08/29/18 20:11 87 18 97 Nasal Cannula 2.0 08/29/18 20:11 97 Nasal Cannula 2.0 08/29/18 20:00 75 08/29/18 20:00 98.1 75 20 153/69 (97) 96 08/29/18 17:06 162/79 08/29/18 16:00 97.9 71 20 162/79 (106) 97 08/29/18 15:45 68 08/29/18 14:50 139/67 08/29/18 14:50 139/67 Intake and Output 08/29/18 08/30/18 19:00 07:00 Intake Total 120 ml 755 ml Balance 120 ml 755 ml Intake Oral 120 ml 480 ml Blood Product 275 ml # Voids 4 # Bowel Movements 2 Laboratory Tests 08/29/18 22:30: Stool Occult Blood Positive 08/30/18 07:50: White Blood Count 9.5, Red Blood Count 3.84L, Hemoglobin 11.5#L, Hematocrit 33.4 #L, Mean Corpuscular Volume 87, Mean Corpuscular Hemoglobin 30.1, Mean Corpuscular Hemoglobin Concent 34.5, Red Cell Distribution Width 13.6, Platelet Count 328, Mean Platelet Volume 4.5L, Neutrophils (%) (Auto) 79.9H, Lymphocytes (%) (Auto) 7.2L, Monocytes (%) (Auto) 8.1, Eosinophils (%) (Auto) 3.9H, Basophils (%) (Auto) 0.8, Sodium Level 141, Potassium Level 3.2L, Chloride Level 104, Carbon Dioxide Level 22, Anion Gap 16H, Blood Urea Nitrogen 53H, Creatinine 3.9H, Estimat Glomerular Filtration Rate , Glucose Level 160H, Uric Acid 6.5, Calcium Level 7.5L, Phosphorus Level 4.9, Magnesium Level 2.1, Total Bilirubin 0.3, Aspartate Amino Transf (AST/SGOT) 18, Alanine Aminotransferase ( ALT/SGPT) 7L, Alkaline Phosphatase 130H, Troponin I 0.623H, C-Reactive Protein, Quantitative 18.9H, Pro-B-Type Natriuretic Peptide > 59098E, Total Protein 7.4, Albumin 1.9L, Globulin 5.5, Albumin/Globulin Ratio 0.3L Height (Feet): 5 Height (Inches): 7.00 Weight (Pounds): 165 General Appearance: no apparent distress Cardiovascular: normal rate Respiratory/Chest: decreased breath sounds Abdomen: soft Objective no change Sukhdeep Rodriguez MD August 30, 2018 13:39
[2018-08-30] MEDS ORDERED: Bethanechol 25mg Tab ORAL ONE (14:15)
--- NOTE | 2018-08-30 15:01 | NUR ---
RD ASSESSMENT & RECOMMENDATIONS SEE CARE ACTIVITY FOR COMPLETE ASSESSMENT DAILY ESTIMATED NEEDS: Needs based on Renal 69kg adj 25-30 kcals/kg 1161-7399 total kcals 0.8-1.0 g protein/kg 55-69 g total protein Fluid per MD mL/kg total fluid mLs NUTRITION DIAGNOSIS: * Decreased sodium needs r/t renal insufficiency, cardiac dx as evidenced by elev BUN (66-> 53), elev creat (3.9), elev BNP >80521, elev troponin, low K (3.3). * Chewing difficulty R/T edentulous status as evidenced by pt on [facility] soft chopped texture. CURRENT DIET:[facility] MED, [facility] soft chopped PO DIET RECOMMENDATIONS: Liberalized REGULAR diet w/ poor PO intake (Texture as tolerated) ADDITIONAL RECOMMENDATIONS: 1) W/ PO intake consistently >50% -> rec LOW NA, [facility] MED diet 2) Snacks TID in b/w meals -> Pt does not want Glucerna 3) Monitor lytes w/ current renal status, need for dietary restriction 4) Obtain a standing weight as able 5) Monitor PO intake closely, encourage PO intake- poor PO
[2018-08-30] MEDS: Nitroglycerin Patch 0.4mg TDERMAL SCH (15:12)
[2018-08-30] MEDS ORDERED: NS 275ml ONE (17:22)
[2018-08-30] MEDS ORDERED: Tubing IV Secondary IV ONE (17:22)
[2018-08-30] MEDS: Bethanechol 10mg Tab ORAL SCH ×2 (17:37→20:24)
--- NOTE | 2018-08-30 19:15 | NUR ---
NURSE NOTES: Received report from Gely Gallo, pt. in bed awake, Alert to name and place- able to make needs known, cardiac monitoring on, no signs or symptoms of acute cardiac or respiratory distress noted, bed in lowest position and call light within easy reach, bed alarm on, side rails up x's3 and safety brakes engaged, pt.appears to be in bed resting comfortably, pt. appears to be sating well on room air at 98%- no distress noted, condom cath intact and draining to gravity, MYRNA IV intact and patent, safety measures continued, will continue with plan of care. no seizure activity noted during assessment, safety measures continued, will continue with plan of care.
--- NOTE | 2018-08-30 19:49 | NUR ---
HAND-OFF: Report given to PARAM Moreno.
[2018-08-30] MEDS: cloNIDine 0.2mg Tab ORAL SCH (22:00)
[2018-08-31] VITALS (8 sets, daily range): BP systolic 134–176; BP diastolic 41–91
[2018-08-31] MEDS: Piperacillin/Tazobactam 3.375 GM in NS 110 ML IVPB SCH ×2 (00:22→13:52)
[2018-08-31] MEDS: Albuterol/Ipratropium 3ml neb HHN SCH ×4 (01:00→19:31)
--- NOTE | 2018-08-31 03:15 | Progress Note ---
DATE: 08/30/2018 CARDIOLOGY PROGRESS NOTE SUBJECTIVE: The patient was transfused packed red blood cells yesterday. The patient has no chest pain or shortness of breath. OBJECTIVE: VITAL SIGNS: Blood pressure 125/72, pulse rate 81, respirations 18, afebrile, oxygen saturation 96% on room air. LUNGS: Clear. CARDIAC: Reveals regular rhythm and rate. Normal S1, S2 with a 1/6 systolic apical murmur. ABDOMEN: Soft. EXTREMITIES: Without edema. LABORATORY DATA: White count 9.5 and hemoglobin 11.5. Sodium 141, potassium 3.2, bicarbonate 22, BUN 53, creatinine 3.9. Troponin down to 0.623. Pronatriuretic peptide is over 35,000. IMPRESSION: 1. [id number] myocardial infarction. 2. A cute on chronic systolic and diastolic congestive heart failure. 3. Ischemic cardiomyopathy. 4. Acute on chronic renal failure. 5. Obstructive uropathy. PLAN: 1. Hold diuretics. 2. Monitor renal output with indwelling catheter. 3. Titrate antihypertensives. 4. Monitor and titrate drug levels. 5. Maintain anti-platelet therapy statin drug and long-acting nitrates with maximized anti-failure regimen on board. Eric Brown M.D. DR: JOSE JOB#: [id number] CC:
[2018-08-31] MEDS: HydrALAZINE 50mg tab ORAL SCH ×3 (05:00→22:32)
[2018-08-31] MEDS: cloNIDine 0.2mg Tab ORAL SCH ×3 (05:47→22:32)
[2018-08-31] MEDS: NovoLOG Insulin Flexpen SUBQ SCH ×4 (06:19→21:20)
[2018-08-31 06:33] LABS: BASOPHILS % (AUTO) 1.1 % (0.0-2.0); EOSINOPHILS % (AUTO) 4.5 % (0.0-3.0); HEMATOCRIT 34.1 % (42.0-52.0); HEMOGLOBIN 11.6 G/DL (14.2-18.0); LYMPHOCYTES % (AUTO) 9.5 % (20.0-45.0); MEAN CORPUSCULAR VOLUME 88 FL (80-99); MONOCYTES % (AUTO) 9.2 % (1.0-10.0); NEUTROPHILS % (AUTO) 75.7 % (45.0-75.0); PLATELET COUNT 336 K/UL (150-450); RED BLOOD COUNT 3.87 M/UL (4.70-6.10); RED CELL DISTRIBUTION WIDTH 14.1 % (11.6-14.8); WHITE BLOOD COUNT 10.2 K/UL (4.8-10.8)
[2018-08-31 06:53] LABS: ALANINE AMINOTRANSFERASE 8 U/L (12-78); ALBUMIN 1.9 G/DL (3.4-5.0); ALBUMIN/GLOBULIN RATIO 0.3 (1.0-2.7); ALKALINE PHOSPHATASE 131 U/L (46-116); ANION GAP 19 mmol/L (5-15); ASPARTATE AMINO TRANSFERASE 20 U/L (15-37); BLOOD UREA NITROGEN 44 mg/dL (7-18); CALCIUM 7.6 MG/DL (8.5-10.1); CARBON DIOXIDE 18 MMOL/L (21-32); CHLORIDE 103 MMOL/L (98-107); CREATININE 3.7 MG/DL (0.55-1.30); POTASSIUM 3.3 MMOL/L (3.5-5.1); SODIUM 140 MMOL/L (136-145)
--- NOTE | 2018-08-31 07:00 | NUR ---
NURSE NOTES: Received report from PARAM Moreno. Pt in bed, sleeping, respirations regular and unlabored, no apparent distress noted, bed in lowest position, call light within reach, bed alarm on.
--- NOTE | 2018-08-31 07:05 | NUR ---
HAND-OFF: Report given to Walker RN, pt. remains stable and no signs of distress noted.
[2018-08-31 07:20] LABS: BILIRUBIN,TOTAL 0.3 MG/DL (0.2-1.0)
--- NOTE | 2018-08-31 08:27 | General Progress Note ---
Assessment/Plan Problem List: (1) Acute renal insufficiency ICD Codes: N28.9 - Disorder of kidney and ureter, unspecified SNOMED: 04059237 (2) Leukocytosis ICD Codes: D72.829 - Elevated white blood cell count, unspecified SNOMED: 313350997 (3) Hematuria, gross ICD Codes: R31.0 - Gross hematuria SNOMED: 287001134 (4) Prostate hypertrophy ICD Codes: N40.0 - Benign prostatic hyperplasia without lower urinary tract symptoms SNOMED: 529821004 (5) UTI (urinary tract infection) ICD Codes: N39.0 - Urinary tract infection, site not specified SNOMED: 48693301 (6) Urethral stricture SNOMED: 20906905 (7) AMI (acute myocardial infarction) ICD Codes: I21.9 - Acute myocardial infarction, unspecified SNOMED: 16075646 Status: stable, progressing Assessment/Plan: o2 as needed abx monitor renal fxn- replace k monitor for bleeding off eliquis due to bleeding concern- stool ob+ ?ivc filter transfuse as needed repeat renal us no weathers needed per pt is agreeable to a indwelling cather- states he will not pull it out. Subjective ROS Limited/Unobtainable: No Constitutional: Reports: malaise, weakness HEENT: Reports: no symptoms Cardiovascular: Reports: no symptoms Respiratory: Reports: no symptoms Gastrointestinal/Abdominal: Reports: no symptoms Genitourinary: Reports: no symptoms Neurologic/Psychiatric: Reports: no symptoms Endocrine: Reports: no symptoms Hematologic/Lymphatic: Reports: no symptoms Allergies: Coded Allergies: NO KNOWN DRUG ALLERGIES (Unverified Allergy, Unknown, 04/11/14) All Systems: reviewed and negative except above Subjective no complaints. denies pain. eating breakfast. no complaints. no fever or chills. renal fxn slightly better. low k . Objective Last 24 Hour Vital Signs Date Time Temp Pulse Resp B/P (MAP) Pulse Ox O2 Delivery O2 Flow Rate FiO2 08/31/18 07:45 Room Air 08/31/18 07:45 95 Room Air 21 08/31/18 07:45 Room Air 08/31/18 05:47 142/79 08/31/18 05:00 154/77 08/31/18 04:00 98.6 80 20 154/77 (102) 98 08/31/18 04:00 76 08/31/18 01:19 Room Air 08/31/18 01:19 Room Air 08/31/18 00:00 98.7 80 20 134/77 (96) 100 08/31/18 00:00 73 08/30/18 22:00 128/66 08/30/18 21:25 76 154/72 (99) 08/30/18 21:25 154/72 08/30/18 21:00 Room Air 08/30/18 20:25 81 125/72 08/30/18 20:00 98.0 81 18 125/72 (89) 96 08/30/18 20:00 74 08/30/18 19:43 78 18 98 Room Air 08/30/18 19:36 96 Room Air 08/30/18 19:33 75 20 96 Room Air 21 08/30/18 17:36 75 154/82 08/30/18 16:00 96.9 75 20 154/82 (106) 95 08/30/18 15:18 74 08/30/18 15:12 158/87 08/30/18 15:12 158/87 08/30/18 13:25 89 18 98 Nasal Cannula 2.0 08/30/18 13:16 82 18 97 Nasal Cannula 2.0 08/30/18 12:35 159/96 08/30/18 12:00 97.3 78 20 159/96 (117) 95 08/30/18 11:35 73 08/30/18 09:00 Room Air 08/30/18 08:27 86 177/94 08/30/18 08:26 177/94 08/30/18 08:26 86 177/94 Intake and Output 08/30/18 08/31/18 19:00 07:00 Intake Total 390 ml 110.0 ml Balance 390 ml 110.0 ml Intake Oral 390 ml IV Total 110.0 ml # Voids 1 1 # Bowel Movements 2 1 Laboratory Tests 08/31/18 05:45: White Blood Count 10.2, Red Blood Count 3.87L, Hemoglobin 11.6L, Hematocrit 34.1L, Mean Corpuscular Volume 88, Mean Corpuscular Hemoglobin 29.9, Mean Corpuscular Hemoglobin Concent 33.9, Red Cell Distribution Width 14.1, Platelet Count 336, Mean Platelet Volume 4.9L, Neutrophils (%) (Auto) 75.7H, Lymphocytes (%) (Auto) 9.5L, Monocytes (%) (Auto) 9.2, Eosinophils (%) (Auto) 4.5H, Basophils (%) (Auto) 1.1, Sodium Level 140, Potassium Level 3.3L, Chloride Level 103, Carbon Dioxide Level 18L, Anion Gap 19H, Blood Urea Nitrogen 44H, Creatinine 3.7H, Estimat Glomerular Filtration Rate , Glucose Level 141H, Uric Acid 6.4, Calcium Level 7.6L, Phosphorus Level 5.0H, Magnesium Level 2.1, Total Bilirubin 0.3, Aspartate Amino Transf (AST/SGOT) 20, Alanine Aminotransferase ( ALT/SGPT) 8L, Alkaline Phosphatase 131H, C-Reactive Protein, Quantitative 14.0H , Pro-B-Type Natriuretic Peptide > 50271S, Total Protein 7.4, Albumin 1.9L, Globulin 5.5, Albumin/Globulin Ratio 0.3L Height (Feet): 5 Height (Inches): 7.00 Weight (Pounds): 172 Objective General Appearance: WD/WN, alert Neck: supple Cardiovascular: normal rate, regular rhythm Respiratory/Chest: chest wall non-tender, lungs - rhonchi and wheezes Abdomen: normal bowel sounds, non tender, soft, no organomegaly Edema: 1+ edema Anthony Alejandro MD August 31, 2018 08:27
[2018-08-31] MEDS: Nuedexta Capsule 20/10mg ORAL SCH ×2 (09:45→21:21)
[2018-08-31] MEDS: Donepezil 10mg tab ORAL SCH (09:45)
[2018-08-31] MEDS: Levodopa/Carbidopa 25/100 tab ORAL SCH ×3 (09:45→17:13)
[2018-08-31] MEDS: Nephrovite tab (Rena-Vite) ORAL SCH (09:45)
[2018-08-31] MEDS: Aspirin Baby 81mg ORAL SCH (09:45)
[2018-08-31] MEDS: Bethanechol 10mg Tab ORAL SCH ×2 (09:45→12:25)
[2018-08-31] MEDS: Imdur 30mg tab ORAL SCH (09:45)
[2018-08-31] MEDS: Phenytoin 100mg cap ORAL SCH ×3 (09:45→22:32)
[2018-08-31] MEDS: Citalopram Hydrobromide 10mg Tab ORAL SCH (09:46)
[2018-08-31] MEDS: Tamsulosin 0.4mg cap ORAL SCH ×2 (09:46→17:13)
[2018-08-31] MEDS: Docusate 100mg cap ORAL SCH ×3 (09:46→17:13)
[2018-08-31] MEDS: Carvedilol 25mg Tab ORAL SCH ×2 (09:47→21:21)
--- NOTE | 2018-08-31 10:03 | Pulmonology Progress Note ---
Assessment/Plan Assessment/Plan Pulmonary Progress Note HPI: The patient is a 73-year-old male admitted with urinary retention, acute renal failure. He has a history of hypertensive heart disease, BPH, seizure disorder. On initial evaluation, there was a concern about possible urinary retention, noted to have evidence of UTI. The patient had an elevated creatinine of 3.4. Noted to have features of Taketsubo's cardiomyopathy on Echo, patchy infiltrates on CXR PAST MEDICAL HISTORY: As above. PAST SURGICAL HISTORY: None. CURRENT MEDICATIONS: Reconciled and reviewed. ALLERGIES: None. FAMILY HISTORY: None. SOCIAL HISTORY: Negative for tobacco, ethanol, or drugs. REVIEW OF SYSTEMS: Negative aside from above PHYSICAL EXAMINATION: VITAL SIGNS NOTED GENERAL: The patient is well-developed, no apparent distress. HEART: Regular rate and rhythm. LUNGS: Clear. ABDOMEN: Soft, nontender, nondistended. EXTREMITIES: Without clubbing, cyanosis, or edema. HEAD SWAMPER: No focal signs LABORATORY DATA NOTED: ASSESSMENT: 1. Acute renal failure. K3.3 2. Possible obstructive uropathy, UTI 3. BPH. 4. Hypertension. 5. Seizure Disorder 6. Anemia 7. Possible Pneumonia 8. Taketsubo Cardiomyopathy 9. Dementia PLAN: Continue current antibiotics O2 PRN Monitor Labs, transfuse PRN HHN Volume/diuresis per Cardiology and Renal Subjective ROS Limited/Unobtainable: No Allergies: Coded Allergies: NO KNOWN DRUG ALLERGIES (Unverified Allergy, Unknown, 04/11/14) Objective Last 24 Hour Vital Signs Date Time Temp Pulse Resp B/P (MAP) Pulse Ox O2 Delivery O2 Flow Rate FiO2 08/31/18 09:47 87 176/91 08/31/18 09:45 87 176/91 08/31/18 09:45 176/91 08/31/18 08:00 98.0 87 23 176/91 (119) 94 08/31/18 07:45 Room Air 08/31/18 07:45 95 Room Air 21 08/31/18 07:45 Room Air 08/31/18 05:47 142/79 08/31/18 05:00 154/77 08/31/18 04:00 98.6 80 20 154/77 (102) 98 08/31/18 04:00 76 08/31/18 01:19 Room Air 08/31/18 01:19 Room Air 08/31/18 00:00 98.7 80 20 134/77 (96) 100 08/31/18 00:00 73 08/30/18 22:00 128/66 08/30/18 21:25 76 154/72 (99) 08/30/18 21:25 154/72 08/30/18 21:00 Room Air 08/30/18 20:25 81 125/72 08/30/18 20:00 98.0 81 18 125/72 (89) 96 08/30/18 20:00 74 08/30/18 19:43 78 18 98 Room Air 08/30/18 19:36 96 Room Air 08/30/18 19:33 75 20 96 Room Air 21 08/30/18 17:36 75 154/82 08/30/18 16:00 96.9 75 20 154/82 (106) 95 08/30/18 15:18 74 08/30/18 15:12 158/87 08/30/18 15:12 158/87 08/30/18 13:25 89 18 98 Nasal Cannula 2.0 08/30/18 13:16 82 18 97 Nasal Cannula 2.0 08/30/18 12:35 159/96 08/30/18 12:00 97.3 78 20 159/96 (117) 95 08/30/18 11:35 73 Intake and Output 08/30/18 08/31/18 19:00 07:00 Intake Total 390 ml 110.0 ml Balance 390 ml 110.0 ml Intake Oral 390 ml IV Total 110.0 ml # Voids 1 1 # Bowel Movements 2 1 Laboratory Tests 08/31/18 05:45: White Blood Count 10.2, Red Blood Count 3.87L, Hemoglobin 11.6L, Hematocrit 34.1L, Mean Corpuscular Volume 88, Mean Corpuscular Hemoglobin 29.9, Mean Corpuscular Hemoglobin Concent 33.9, Red Cell Distribution Width 14.1, Platelet Count 336, Mean Platelet Volume 4.9L, Neutrophils (%) (Auto) 75.7H, Lymphocytes (%) (Auto) 9.5L, Monocytes (%) (Auto) 9.2, Eosinophils (%) (Auto) 4.5H, Basophils (%) (Auto) 1.1, Sodium Level 140, Potassium Level 3.3L, Chloride Level 103, Carbon Dioxide Level 18L, Anion Gap 19H, Blood Urea Nitrogen 44H, Creatinine 3.7H, Estimat Glomerular Filtration Rate , Glucose Level 141H, Uric Acid 6.4, Calcium Level 7.6L, Phosphorus Level 5.0H, Magnesium Level 2.1, Total Bilirubin 0.3, Aspartate Amino Transf (AST/SGOT) 20, Alanine Aminotransferase ( ALT/SGPT) 8L, Alkaline Phosphatase 131H, C-Reactive Protein, Quantitative 14.0H , Pro-B-Type Natriuretic Peptide > 17168H, Total Protein 7.4, Albumin 1.9L, Globulin 5.5, Albumin/Globulin Ratio 0.3L Current Medications Medications (Trade) Dose Ordered Sig/Thu Route PRN Reason Start Time Stop Time Status Last Admin Dose Admin Acetaminophen (Tylenol) 650 mg Q6H PRN ORAL For Pain 08/26/18 12:30 09/18/18 12:29 Albuterol/ Ipratropium (Albuterol/ Ipratropium) 3 ml Q4H PRN HHN Shortness of Breath 08/26/18 12:30 08/31/18 12:29 Albuterol/ Ipratropium (Albuterol/ Ipratropium) 3 ml Q6HRT HHN 08/27/18 13:00 09/01/18 12:59 08/30/18 19:33 Amlodipine Besylate (Norvasc) 5 mg BID ORAL 08/30/18 18:00 09/27/18 13:59 08/31/18 09:45 Aspirin (ASA) 81 mg DAILY ORAL 08/27/18 09:00 09/26/18 08:59 08/31/18 09:45 Bethanechol Chloride (Urecholine) 10 mg FOUR TIMES A DAY ORAL 08/30/18 18:00 09/29/18 17:59 08/31/18 09:45 Carbidopa/Levodopa (Sinemet 25/100) 1 tab THREE TIMES A DAY ORAL 08/26/18 13:00 09/19/18 08:59 08/31/18 09:45 Carvedilol (Coreg) 25 mg EVERY 12 HOURS ORAL 08/30/18 09:00 09/29/18 08:59 08/31/18 09:47 Ceftriaxone Sodium 1 gm/ Dextrose 55 ml @ 110 mls/hr Q24H IVPB 08/27/18 13:00 09/03/18 12:59 08/30/18 12:35 Citalopram Hydrobromide (celeXA) 20 mg DAILY ORAL 08/27/18 09:00 09/19/18 08:59 08/31/18 09:46 Clonidine HCl (Catapres tab) 0.2 mg EVERY 8 HOURS ORAL 08/30/18 22:00 09/19/18 00:00 08/31/18 05:47 Dextromethorphan/ Quinidine (Nuedexta Capsule) 1 cap Q12HR ORAL 08/26/18 21:00 09/19/18 08:59 08/31/18 09:45 Dextrose (Dextrose 50%) 25 ml Q30M PRN IV Hypoglycemia 08/26/18 12:15 09/18/18 22:44 Dextrose (Dextrose 50%) 50 ml Q30M PRN IV Hypoglycemia 08/26/18 12:15 09/18/18 22:44 Docusate Sodium (Colace) 100 mg TID ORAL 08/26/18 13:00 09/19/18 08:59 08/31/18 09:46 Donepezil HCl (Aricept) 10 mg DAILY ORAL 08/27/18 09:00 09/19/18 08:59 08/31/18 09:45 Epoetin Zaid (Epoetin Zaid-EPBX(NON ESRD)) 10,000 unit WED-WED-WED SUBQ 08/29/18 21:00 09/28/18 20:59 08/29/18 21:28 Finasteride (Proscar) 5 mg DAILY ORAL 08/27/18 09:00 09/19/18 08:59 08/31/18 09:46 Hydralazine HCl (Apresoline) 25 mg Q4H PRN ORAL bp over 160 syst 08/28/18 14:00 09/27/18 13:59 Hydralazine HCl (Apresoline) 100 mg Q8HR ORAL 08/29/18 06:00 09/28/18 05:59 08/31/18 05:00 Insulin Aspart (NovoLOG) BEFORE MEALS AND HS SUBQ 08/26/18 16:30 09/19/18 06:29 08/31/18 06:19 Isosorbide Mononitrate (Imdur) 60 mg DAILY ORAL 08/30/18 09:00 09/29/18 08:59 08/31/18 09:45 Lorazepam (Ativan 2mg/ml 1ml) 2 mg Q2H PRN IV For Anxiety 08/26/18 12:15 09/02/18 10:14 Nitroglycerin (Ntg) 1 patch Q24H TDERMAL 08/27/18 15:00 09/26/18 14:59 08/30/18 15:12 Pantoprazole (Protonix) 40 mg BID ORAL 08/27/18 14:15 09/26/18 14:14 08/31/18 09:45 Phenytoin (Dilantin) 100 mg THREE TIMES A DAY ORAL 08/26/18 13:00 09/19/18 08:59 08/31/18 09:45 Piperacillin Sod/ Tazobactam Sod 3.375 gm/Sodium Chloride 110 ml @ 27.5 mls/hr Q12H IVPB 08/26/18 13:00 09/02/18 12:59 08/31/18 00:22 Pravastatin Sodium (Pravachol) 80 mg BEDTIME ORAL 08/26/18 21:00 09/19/18 20:59 08/30/18 20:24 Tamsulosin HCl (Flomax) 0.4 mg BID ORAL 08/26/18 18:00 09/19/18 20:59 08/31/18 09:46 Vitamin B Complex/ Vit C/Folic Acid (Nephrovite) 1 tab DAILY ORAL 08/27/18 09:00 09/19/18 08:59 08/31/18 09:45 Eric Pettit MD August 31, 2018 10:03
--- NOTE | 2018-08-31 11:15 | NUR ---
NURSE NOTES: 0800 BP 176/91 HR 87. Gave pt scheduled 0900 BP meds. 1100 recheck BP 146/84 HR 78. Notified skate maker Evelyn. Notified Dr. Edward. Addendum: 08/31/18 at 1447 by ERICK VERDUZCO RN NURSE NOTES: 1236 Dr. Edward stated to notified Dr. Brown. 1445: Left message with Dr. Brown's office
[2018-08-31] MEDS: cefTRIAXone 1 GM in D5W 55 ML IVPB SCH (12:25)
--- NOTE | 2018-08-31 12:42 | Nephrology Progress Note ---
Assessment/Plan Problem List: (1) Renal failure (ARF), acute on chronic (2) Prostate hypertrophy (3) Urethral stricture (4) UTI (urinary tract infection) (5) Bilateral hydronephrosis (6) Elevated troponin I level (7) Hypertensive kidney disease (8) Cardiomyopathy Assessment Acute on chronic renal failure Likely Diabetic Nephrosclerosis urinary retention on bladder scan Anemia of CKD Proteinuria / HypoAlbuminemia likely due to DM BPH HTN Parkinsons bilateral hydro elevated troponin Plan one dose Zaroxylin trial Urecholine if OK by Uro recheck labs in am- transfuse if needed gastric support optimize cardiac status DC cogentin due to retention adjust BP meds Start Po Bicitra Kidney TONY noted bilateral hydro Uro intervention adjust BP meds Anemia potts check Uric Acid Urine studies up dose flomax per orders check dialntin level Left ventricular lazo in the basal regions are contracted normally however the apical segments are akinetic, 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 Mild left ventricular enlargement. Subjective ROS Limited/Unobtainable: No Constitutional: Reports: malaise Objective Objective Last 24 Hour Vital Signs Date Time Temp Pulse Resp B/P (MAP) Pulse Ox O2 Delivery O2 Flow Rate FiO2 08/31/18 12:00 98.2 78 23 146/84 (104) 95 08/31/18 11:14 78 146/84 (104) 08/31/18 09:47 87 176/91 08/31/18 09:45 87 176/91 08/31/18 09:45 176/91 08/31/18 09:00 Room Air 08/31/18 08:00 98.0 87 23 176/91 (119) 94 08/31/18 07:45 Room Air 08/31/18 07:45 95 Room Air 21 08/31/18 07:45 Room Air 08/31/18 07:41 86 08/31/18 05:47 142/79 08/31/18 05:00 154/77 08/31/18 04:00 98.6 80 20 154/77 (102) 98 08/31/18 04:00 76 08/31/18 01:19 Room Air 08/31/18 01:19 Room Air 08/31/18 00:00 98.7 80 20 134/77 (96) 100 08/31/18 00:00 73 08/30/18 22:00 128/66 08/30/18 21:25 76 154/72 (99) 08/30/18 21:25 154/72 08/30/18 21:00 Room Air 08/30/18 20:25 81 125/72 08/30/18 20:00 98.0 81 18 125/72 (89) 96 08/30/18 20:00 74 08/30/18 19:43 78 18 98 Room Air 08/30/18 19:36 96 Room Air 08/30/18 19:33 75 20 96 Room Air 21 08/30/18 17:36 75 154/82 08/30/18 16:00 96.9 75 20 154/82 (106) 95 08/30/18 15:18 74 08/30/18 15:12 158/87 08/30/18 15:12 158/87 08/30/18 13:25 89 18 98 Nasal Cannula 2.0 28 08/30/18 13:16 82 18 97 Nasal Cannula 2.0 28 Intake and Output 08/30/18 08/31/18 19:00 07:00 Intake Total 390 ml 110.0 ml Balance 390 ml 110.0 ml Intake Oral 390 ml IV Total 110.0 ml # Voids 1 1 # Bowel Movements 2 1 Laboratory Tests 08/31/18 05:45: White Blood Count 10.2, Red Blood Count 3.87L, Hemoglobin 11.6L, Hematocrit 34.1L, Mean Corpuscular Volume 88, Mean Corpuscular Hemoglobin 29.9, Mean Corpuscular Hemoglobin Concent 33.9, Red Cell Distribution Width 14.1, Platelet Count 336, Mean Platelet Volume 4.9L, Neutrophils (%) (Auto) 75.7H, Lymphocytes (%) (Auto) 9.5L, Monocytes (%) (Auto) 9.2, Eosinophils (%) (Auto) 4.5H, Basophils (%) (Auto) 1.1, Sodium Level 140, Potassium Level 3.3L, Chloride Level 103, Carbon Dioxide Level 18L, Anion Gap 19H, Blood Urea Nitrogen 44H, Creatinine 3.7H, Estimat Glomerular Filtration Rate , Glucose Level 141H, Uric Acid 6.4, Calcium Level 7.6L, Phosphorus Level 5.0H, Magnesium Level 2.1, Total Bilirubin 0.3, Aspartate Amino Transf (AST/SGOT) 20, Alanine Aminotransferase ( ALT/SGPT) 8L, Alkaline Phosphatase 131H, C-Reactive Protein, Quantitative 14.0H , Pro-B-Type Natriuretic Peptide > 27364F, Total Protein 7.4, Albumin 1.9L, Globulin 5.5, Albumin/Globulin Ratio 0.3L Height (Feet): 5 Height (Inches): 7.00 Weight (Pounds): 172 General Appearance: no apparent distress Cardiovascular: normal rate Respiratory/Chest: decreased breath sounds Abdomen: distended Objective no change Sukhdeep Rodriguez MD August 31, 2018 12:42
[2018-08-31] MEDS ORDERED: Sodium Citrate 30ml ORAL SCH (12:44)
[2018-08-31] MEDS ORDERED: Bethanechol 10mg Tab ORAL SCH (12:44)
[2018-08-31] MEDS: Nitroglycerin Patch 0.4mg TDERMAL SCH (13:51)
--- NOTE | 2018-08-31 14:48 | NUR ---
NURSE NOTES: Dr. Rodriguez ordered post void bladder scan. Bladder scan was done with Renal Ultrasound showed 500 cc in bladder and worsening hydronephrosis. Left message with Dr. Rodriguez's office regarding results and asked if he still would like a bladder scan done Addendum: 08/31/18 at 1457 by ERICK VERDUZCO RN NURSE NOTES: Spoke with Dr. Rodriguez, no need for additional bladder scan. Dr. Rodriguez noted that Dr. Alejandro's note states "pt agreed to [facility]' asked if I would contact Dr. Alejandro to asked if nursing is suppose to put in San or if Urology is suppose to insert. Left message with Dr. Alejandro's office.
--- NOTE | 2018-08-31 15:02 | NUR ---
CASE MANAGEMENT:REVIEW 08/31/18 SI: SEVEN. HEMATURIA. UTI. AMI 98.2 78 23 146/84 95% ON RA H/H-11.6/34.1 K-3.3 BUN+44 CR+3.7 IS: IV ROCEPHIN Q24 IV ZOSYN Q12 FLOMAX PO BID : TELEMETRY STATUS DCP: FROM NURIA CASEY
--- NOTE | 2018-08-31 15:35 | Diagnostic Imaging Report ---
Indication: Acute renal failure Technique: Grayscale and duplex images of the kidneys, retroperitoneum, and bladder were obtained. Comparison: 08/25/2017 Findings: Right kidney measures 9.3 cm in length. Left kidney measures 9.7 cm in length. Both kidneys demonstrate normal echogenicity. There is moderate to severe hydronephrosis bilaterally, which has increased from the prior study on both sides. It is worse on the right.. Within the right renal collecting system, there is a 5 mm hyperechoic focus likely representing a calyceal calcification. The left kidney demonstrates a small cyst. The bladder is distended, prevoid volume calculated at 500 mL. Patient unable to void at the time of exam. Again demonstrated is a TURP defect. Normal inferior vena cava. Bladder is normal. Impression: Moderate to severe bilateral hilar worsening in now moderate to severe bilateral hydronephrosis. Possibly on the basis of chronic laterality obstruction Distended bladder, as described Nonobstructive right renal calyceal calculus, previously demonstrated as well Incidental finding small left renal cyst. Findings discussed by phone with Dr. Alejandro at the time of interpretation.
[2018-08-31] MEDS: Bethanechol 25mg Tab ORAL SCH (17:13)
[2018-08-31] MEDS: Sodium Citrate 30ml ORAL SCH (17:13)
--- NOTE | 2018-08-31 19:29 | NUR ---
NURSE NOTES: Received report from PARAM Mooney. Patient seen in bed in semi ware position, Alert, verbally responsive, able to make needs known. denies any pain at this time. IV site is to left upper arm 22g and is intact. On room air with no SOB or S/Sx of acute respiratory distress noted. Bed is in lowest position. Call light is within easy reach while in bed. Will continue to monitor
--- NOTE | 2018-08-31 19:30 | NUR ---
NURSE NOTES: Report received from William. Patient seen in bed in semi ware position resting, is by bedside. Patient is alert, verbally responsive, able to make needs known. Denies any pain at this time. On room air with no SOB or acute respiratory distress noted. IV site noted to left hand 22g and is intact. Bed in lowest position. Call light is within easy reach while in bed. will continue to monitor. Addendum: 08/31/18 at 1936 by Pedro Sheppard RN DISREGARD THE NOTE ABOVE. WRONG PATIENT
--- NOTE | 2018-08-31 19:33 | NUR ---
HAND-OFF: Report given to PARAM Naqvi.
[2018-08-31] MEDS: Epoetin Alfa-EPBX (NON ESRD)10,000 unit/ml vial SUBQ SCH (21:20)
[2018-09-01] VITALS (15 sets, daily range): BP systolic 134–194; BP diastolic 60–102
[2018-09-01] MEDS: Piperacillin/Tazobactam 3.375 GM in NS 110 ML IVPB SCH ×2 (00:13→14:55)
[2018-09-01] MEDS: Albuterol/Ipratropium 3ml neb HHN SCH ×2 (00:29→07:32)
--- NOTE | 2018-09-01 04:15 | Progress Note ---
DATE: 08/31/2018 CARDIOLOGY PROGRESS NOTE SUBJECTIVE: The patient has no new complaints. Tolerating diet. Renal function better. The concern is raised over placement of San catheter as he is likely to pull it out. OBJECTIVE: VITAL SIGNS: Blood pressure 135/64, pulse 74, and respirations 20. LUNGS: Clear. CARDIAC: Regular. Normal S1, S2. ABDOMEN: Soft. EXTREMITIES: No edema. DIAGNOSTIC DATA: Renal ultrasound revealed nonobstructive calculus and a distended bladder. Worsening hydro. IMPRESSION: 1. Obstructive uropathy. 2. Hydronephrosis. 3. Acute renal failure, recovering. 4. Hypertensive heart disease. 5. Acute myocardial infarction. 6. Ischemic cardiomyopathy. 7. Acute on chronic diastolic congestive heart failure. 8. Labile hypertension. PLAN: 1. Titrate medications and optimize blood pressure control. 2. Cautious diuresis. 3. Monitor renal output. 4. Anti-platelet therapy, statin, and long-acting nitrates with titration. Eric Brown M.D. DR: HILARIO JOB#: [id number] CC:
[2018-09-01] MEDS: Phenytoin 100mg cap ORAL SCH ×3 (05:33→21:34)
[2018-09-01] MEDS: cloNIDine 0.2mg Tab ORAL SCH ×3 (05:33→22:00)
[2018-09-01] MEDS: HydrALAZINE 50mg tab ORAL SCH ×3 (05:34→21:34)
[2018-09-01] MEDS: NovoLOG Insulin Flexpen SUBQ SCH ×4 (05:34→20:36)
--- NOTE | 2018-09-01 07:11 | NUR ---
HAND-OFF: Report given to PARAM Mooney & PARAM Mark.
--- NOTE | 2018-09-01 07:11 | NUR ---
NURSE NOTES: Received report from PARAM Naqvi. Pt in bed, talkative, no complaints of pain, no distress, asking about eating, explained NPO status and possible upcoming procedure, bed in lowest position, call light within reach.
--- NOTE | 2018-09-01 08:08 | NUR ---
NURSE NOTES: Left message for Dr. Vila to call 2E unit. No consent obtained for pending Cystoscopy today. Pt has PG and according to SS note consent can only be obtained from PG if procedure is emergent and physicians document as such, otherwise a 7 point form will need to be obtained. Want to verify with Dr. Vila before contacting PG. Pre-Op checklist has been started for pending procedure today at 12:00 Addendum: 09/01/18 at 0822 by ERICK VERDUZCO RN NURSE NOTES: Spoke to Dr. Vila, procedure is emergent as pt has worsening, now severe hydronephrosis. Ordered to obtain PT, PTT, INR. Will call PG for consent. Spoke to Servando, PG for pt. She states she does not give consent for any invasive procedures and we will need to follow our hospital protocol for emergent procedures. Addendum: 09/01/18 at 0835 by ERICK VERDUZCO RN NURSE NOTES: As pt is unable to give consent and is under public guardianship, and PG does not given consent for invasive procedures, notified Dr. Alejandro and that consent is not able to be obtained. No need to order INR, PT and PTT ordered stat.
--- NOTE | 2018-09-01 08:42 | Anethesia Preoperative Eval ---
Anesthesia Pre-op PMH/ROS General Date of Evaluation: September 01, 2018 Time of Evaluation: 08:01 Anesthesiologist: Sulema ASA Score: ASA 4 Mallampati Score Class I : Soft palate, uvula, fauces, pillars visible Class II: Soft palate, uvula, fauces visible Class III: Soft palate, base of uvula visible Class IV: Only hard plate visible Mallampati Classification: Class II Surgeon: Cadence Diagnosis: Ureteral Obstruction Surgical Procedure: Cystoscopy with Ureteral Dilation Anesthesia History: none Family History: no anesthesia problems Allergies: Coded Allergies: NO KNOWN DRUG ALLERGIES (Unverified Allergy, Unknown, 04/11/14) Medications: see eMAR Patient NPO?: Yes NPO Date: September 01, 2018 NPO Time: 0000 Past Medical History Cardiovascular: Reports: HTN Pulmonary: Reports: COPD Gastrointestinal/Genitourinary: Reports: other - BPH Neurologic/Psychiatric: Reports: dementia, other - Seizures, Epilepsy, Parkinsons Endocrine: Reports: DM Anesthesia Pre-op Phys. Exam Physician Exam Last Vital Signs Date Time Temp Pulse Resp B/P (MAP) Pulse Ox O2 Delivery O2 Flow Rate FiO2 09/01/18 07:58 98.3 82 20 152/60 (90) 97 09/01/18 07:40 Nasal Cannula 2.0 28 Constitutional: NAD Neurologic: CN 2-12 intact Cardiovascular: RRR Respiratory: CTA Gastrointestinal: S/NT/ND Airway Exam Mallampati Score: Class III MO: limited ROM: limited Teeth: missing Anesthesia Pre-op A/P Risk Assessment & Plan Assessment: ASA 4 Plan: GA Status Change Before Surgery: No Pre-Antibiotics Drug: Murray Green MD September 01, 2018 08:42
[2018-09-01] MEDS: Donepezil 10mg tab ORAL SCH (08:58)
[2018-09-01] MEDS: Aspirin Baby 81mg ORAL SCH (08:58)
[2018-09-01] MEDS: Citalopram Hydrobromide 10mg Tab ORAL SCH (08:59)
[2018-09-01] MEDS: Docusate 100mg cap ORAL SCH ×3 (08:59→17:12)
[2018-09-01] MEDS: Sodium Citrate 30ml ORAL SCH ×2 (08:59→17:12)
[2018-09-01] MEDS: Nuedexta Capsule 20/10mg ORAL SCH ×2 (09:00→20:37)
[2018-09-01] MEDS: Imdur 30mg tab ORAL SCH (09:00)
[2018-09-01] MEDS: Bethanechol 25mg Tab ORAL SCH (09:00)
[2018-09-01] MEDS: Nephrovite tab (Rena-Vite) ORAL SCH (09:00)
[2018-09-01] MEDS: Tamsulosin 0.4mg cap ORAL SCH ×2 (09:00→17:12)
[2018-09-01] MEDS: Carvedilol 25mg Tab ORAL SCH ×2 (09:00→20:37)
[2018-09-01] MEDS: Levodopa/Carbidopa 25/100 tab ORAL SCH ×3 (09:00→17:13)
--- NOTE | 2018-09-01 09:00 | General Progress Note ---
Assessment/Plan Problem List: (1) Acute renal insufficiency ICD Codes: N28.9 - Disorder of kidney and ureter, unspecified SNOMED: 55956212 (2) Leukocytosis ICD Codes: D72.829 - Elevated white blood cell count, unspecified SNOMED: 511875794 (3) Hematuria, gross ICD Codes: R31.0 - Gross hematuria SNOMED: 229273311 (4) Prostate hypertrophy ICD Codes: N40.0 - Benign prostatic hyperplasia without lower urinary tract symptoms SNOMED: 293656454 (5) UTI (urinary tract infection) ICD Codes: N39.0 - Urinary tract infection, site not specified SNOMED: 80925002 (6) Urethral stricture SNOMED: 16808032 (7) AMI (acute myocardial infarction) ICD Codes: I21.9 - Acute myocardial infarction, unspecified SNOMED: 24902588 Status: stable, progressing Assessment/Plan: o2 as needed abx monitor renal fxn- monitor for bleeding off eliquis due to bleeding concern- stool ob+ ?ivc filter transfuse as needed repeat renal us no weathers needed per - pt may pull out pt needs emergent cysto with dilation. has acute on chronic renal failure due to obstruction. at risk for permanent renal failure and without procedure. periop risk is mildly elevated. Subjective ROS Limited/Unobtainable: No Constitutional: Reports: malaise, weakness HEENT: Reports: no symptoms Cardiovascular: Reports: no symptoms Respiratory: Reports: no symptoms Gastrointestinal/Abdominal: Reports: no symptoms Genitourinary: Reports: no symptoms Neurologic/Psychiatric: Reports: anxiety, emotional problems Endocrine: Reports: no symptoms Hematologic/Lymphatic: Reports: no symptoms Allergies: Coded Allergies: NO KNOWN DRUG ALLERGIES (Unverified Allergy, Unknown, 04/11/14) All Systems: reviewed and negative except above Subjective no complaints. denies pain. renal us with worsening hydro- now severe. scheduled for urethral dilation under anesthesia. Objective Last 24 Hour Vital Signs Date Time Temp Pulse Resp B/P (MAP) Pulse Ox O2 Delivery O2 Flow Rate FiO2 09/01/18 07:58 98.3 82 20 152/60 (90) 97 09/01/18 07:40 80 18 99 Nasal Cannula 2.0 28 09/01/18 07:33 97 Nasal Cannula 2.0 28 09/01/18 07:32 77 18 97 Nasal Cannula 2.0 28 09/01/18 05:34 142/73 09/01/18 05:33 142/73 09/01/18 04:00 97.8 80 21 142/73 (96) 95 09/01/18 03:25 82 09/01/18 00:39 86 18 99 Nasal Cannula 2.0 09/01/18 00:29 81 18 97 Nasal Cannula 2.0 08/31/18 23:57 98.0 74 20 135/64 (87) 96 08/31/18 23:39 73 08/31/18 22:32 153/77 08/31/18 22:32 153/77 08/31/18 21:21 85 153/77 08/31/18 21:00 Room Air 08/31/18 20:10 81 08/31/18 20:00 98.0 85 20 153/77 (102) 94 08/31/18 19:41 85 18 97 Nasal Cannula 2.0 08/31/18 19:35 96 Nasal Cannula 2.0 08/31/18 19:31 85 18 96 Nasal Cannula 2.0 08/31/18 17:13 78 142/41 08/31/18 16:23 73 08/31/18 16:00 98.3 78 20 142/41 (74) 95 08/31/18 13:51 146/84 08/31/18 13:51 146/84 08/31/18 13:51 146/84 08/31/18 12:30 Room Air 08/31/18 12:30 Room Air 08/31/18 12:00 98.2 78 23 146/84 (104) 95 08/31/18 11:31 74 08/31/18 11:14 78 146/84 (104) 08/31/18 09:47 87 176/91 08/31/18 09:45 87 176/91 08/31/18 09:45 176/91 08/31/18 09:00 Room Air Intake and Output 08/31/18 09/01/18 19:00 07:00 Intake Total 82.5 ml 230.0 ml Balance 82.5 ml 230.0 ml Intake Oral 120 ml IV Total 82.5 ml 110.0 ml # Voids 1 1 # Bowel Movements 1 Height (Feet): 5 Height (Inches): 6.00 Weight (Pounds): 172 Objective General Appearance: WD/WN, alert Neck: supple Cardiovascular: normal rate, regular rhythm Respiratory/Chest: chest wall non-tender, lungs - rhonchi and wheezes Abdomen: normal bowel sounds, non tender, soft, no organomegaly Edema: 1+ edema Anthony Alejandro MD September 01, 2018 09:00
[2018-09-01 09:46] LABS: BASOPHILS % (AUTO) 1.1 % (0.0-2.0); EOSINOPHILS % (AUTO) 2.7 % (0.0-3.0); HEMATOCRIT 32.9 % (42.0-52.0); HEMOGLOBIN 10.9 G/DL (14.2-18.0); LYMPHOCYTES % (AUTO) 10.9 % (20.0-45.0); MEAN CORPUSCULAR VOLUME 89 FL (80-99); MONOCYTES % (AUTO) 9.3 % (1.0-10.0); PLATELET COUNT 335 K/UL (150-450); RED BLOOD COUNT 3.68 M/UL (4.70-6.10); RED CELL DISTRIBUTION WIDTH 14.1 % (11.6-14.8); WHITE BLOOD COUNT 10.9 K/UL (4.8-10.8)
[2018-09-01 10:00] LABS: INR 2.7 (0.9-1.1)
[2018-09-01 10:25] LABS: ALANINE AMINOTRANSFERASE < 6 U/L (12-78); ALBUMIN 1.9 G/DL (3.4-5.0); ALBUMIN/GLOBULIN RATIO 0.4 (1.0-2.7); ALKALINE PHOSPHATASE 122 U/L (46-116); ANION GAP 19 mmol/L (5-15); ASPARTATE AMINO TRANSFERASE 23 U/L (15-37); BILIRUBIN,TOTAL 0.3 MG/DL (0.2-1.0); BLOOD UREA NITROGEN 42 mg/dL (7-18); CALCIUM 7.9 MG/DL (8.5-10.1); CARBON DIOXIDE 19 MMOL/L (21-32); CHLORIDE 103 MMOL/L (98-107); CREATININE 3.6 MG/DL (0.55-1.30); POTASSIUM 3.5 MMOL/L (3.5-5.1); SODIUM 140 MMOL/L (136-145)
[2018-09-01 10:36] LABS: PHOSPHORUS 4.5 MG/DL (2.5-4.9)
--- NOTE | 2018-09-01 10:39 | Nephrology Progress Note ---
Assessment/Plan Problem List: (1) Renal failure (ARF), acute on chronic (2) Prostate hypertrophy (3) Urethral stricture (4) UTI (urinary tract infection) (5) Bilateral hydronephrosis (6) Elevated troponin I level (7) Hypertensive kidney disease (8) Cardiomyopathy Assessment Acute on chronic renal failure Likely Diabetic Nephrosclerosis urinary retention on bladder scan Anemia of CKD Proteinuria / HypoAlbuminemia likely due to DM BPH HTN Parkinsons bilateral hydro elevated troponin Plan due cysto today recheck labs in am- transfuse as needed gastric support optimize cardiac status DC cogentin due to retention adjust BP meds Po Bicitra Kidney TONY noted bilateral hydro Uro intervention adjust BP meds Anemia potts check Uric Acid Urine studies up dose flomax per orders check dialntin level Left ventricular lazo in the basal regions are contracted normally however the apical segments are akinetic, 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 Mild left ventricular enlargement. Subjective ROS Limited/Unobtainable: No Constitutional: Reports: malaise Objective Objective Last 24 Hour Vital Signs Date Time Temp Pulse Resp B/P (MAP) Pulse Ox O2 Delivery O2 Flow Rate FiO2 09/01/18 09:00 Room Air 09/01/18 09:00 82 152/60 09/01/18 09:00 82 152/60 09/01/18 09:00 152/60 09/01/18 07:58 98.3 82 20 152/60 (90) 97 09/01/18 07:42 76 09/01/18 07:40 80 18 99 Nasal Cannula 2.0 09/01/18 07:33 97 Nasal Cannula 2.0 09/01/18 07:32 77 18 97 Nasal Cannula 2.0 09/01/18 05:34 142/73 09/01/18 05:33 142/73 09/01/18 04:00 97.8 80 21 142/73 (96) 95 09/01/18 03:25 82 09/01/18 00:39 86 18 99 Nasal Cannula 2.0 28 09/01/18 00:29 81 18 97 Nasal Cannula 2.0 08/31/18 23:57 98.0 74 20 135/64 (87) 96 08/31/18 23:39 73 08/31/18 22:32 153/77 08/31/18 22:32 153/77 08/31/18 21:21 85 153/77 08/31/18 21:00 Room Air 08/31/18 20:10 81 08/31/18 20:00 98.0 85 20 153/77 (102) 94 08/31/18 19:41 85 18 97 Nasal Cannula 2.0 28 08/31/18 19:35 96 Nasal Cannula 2.0 28 08/31/18 19:31 85 18 96 Nasal Cannula 2.0 28 08/31/18 17:13 78 142/41 08/31/18 16:23 73 08/31/18 16:00 98.3 78 20 142/41 (74) 95 08/31/18 13:51 146/84 08/31/18 13:51 146/84 08/31/18 13:51 146/84 08/31/18 12:30 Room Air 08/31/18 12:30 Room Air 08/31/18 12:00 98.2 78 23 146/84 (104) 95 08/31/18 11:31 74 08/31/18 11:14 78 146/84 (104) Intake and Output 08/31/18 09/01/18 19:00 07:00 Intake Total 82.5 ml 230.0 ml Balance 82.5 ml 230.0 ml Intake Oral 120 ml IV Total 82.5 ml 110.0 ml # Voids 1 1 # Bowel Movements 1 Laboratory Tests 09/01/18 08:55: White Blood Count 10.9H, Red Blood Count 3.68L, Hemoglobin 10.9L, Hematocrit 32.9L, Mean Corpuscular Volume 89, Mean Corpuscular Hemoglobin 29.7, Mean Corpuscular Hemoglobin Concent 33.3, Red Cell Distribution Width 14.1, Platelet Count 335, Mean Platelet Volume 5.1L, Neutrophils (%) (Auto) 76.0H, Lymphocytes (%) (Auto) 10.9L, Monocytes (%) (Auto) 9.3, Eosinophils (%) (Auto) 2.7, Basophils (%) (Auto) 1.1, Prothrombin Time 26.7H, Prothromb Time International Ratio 2.7H, Activated Partial Thromboplast Time 49H, Sodium Level 140, Potassium Level 3.5, Chloride Level 103, Carbon Dioxide Level 19L, Anion Gap 19H , Blood Urea Nitrogen 42H, Creatinine 3.6H, Estimat Glomerular Filtration Rate , Glucose Level 122H, Uric Acid 6.9, Calcium Level 7.9L, Phosphorus Level 4.5, Magnesium Level 1.8, Total Bilirubin 0.3, Aspartate Amino Transf (AST/SGOT) 23, Alanine Aminotransferase (ALT/SGPT) < 6L, Alkaline Phosphatase 122H, C-Reactive Protein, Quantitative 8.0H, Pro-B-Type Natriuretic Peptide > 73839J, Total Protein 7.0, Albumin 1.9L, Globulin 5.1, Albumin/Globulin Ratio 0.4L Height (Feet): 5 Height (Inches): 6.00 Weight (Pounds): 172 General Appearance: no apparent distress Respiratory/Chest: decreased breath sounds Abdomen: distended Objective no change Sukhdeep Rodriguez MD September 01, 2018 10:39
[2018-09-01] MEDS ORDERED: Lidocaine 1% MPF 10mg/ml 5ml ONE (11:41)
[2018-09-01] MEDS ORDERED: Sodium Chloride 10ml vial INJ ONE (11:41)
[2018-09-01] MEDS ORDERED: Midazolam 2mg/2ml Inj ONE (11:42)
--- NOTE | 2018-09-01 11:44 | NUR ---
NURSE NOTES: Pt taken to surgery for Cystoscopy, off tele unit
[2018-09-01] MEDS ORDERED: LR 1000ml 1,000 ML IVLG SCH (11:49)
--- NOTE | 2018-09-01 11:51 | Immediate Post-Op Evaluation ---
Immediate Post-Op Evalulation Immediate Post-Op Evalulation Procedure: Cystoscopy with Ureteral Dilation Date of Evaluation: September 01, 2018 Time of Evaluation: 14:04 IV Fluids: 300 NS Blood Products: 0 Estimated Blood Loss: 20 Urinary Output: 0 Blood Pressure Systolic: 185 Blood Pressure Diastolic: 102 Pulse Rate: 79 Respiratory Rate: 16 O2 Sat by Pulse Oximetry: 99 Temperature (Fahrenheit): 97.8 Pain Score (1-10): 2 Nausea: No Vomiting: No Complications 0 Patient Status: awake, reacts, patent, none Hydration Status: adequate Dru Gram Ancef IV Time Given: 12:18 Murray Leone MD September 01, 2018 11:51
[2018-09-01] MEDS ORDERED: Sterile Water Irrig 1000ml IRRIG ONE (12:00)
[2018-09-01] MEDS ORDERED: LORazepam Inj 2mg/ml 1ml IV PRN (12:00)
[2018-09-01] MEDS ORDERED: LR 1000ml ONE (12:00)
[2018-09-01] MEDS ORDERED: Hydromorphone 0.5mg/0.5ml inj IVP PRN (12:00)
[2018-09-01] MEDS ORDERED: Midazolam 2mg/2ml Inj IVP PRN (12:00)
[2018-09-01] MEDS ORDERED: HYDROcodone/Acetamin 5/325 tab ORAL PRN (12:00)
[2018-09-01] MEDS ORDERED: NS Irrig 4000ml IRRIG ONE ×2 (12:00→12:30)
[2018-09-01] MEDS ORDERED: NS Irrig 1000ml ONE (12:00)
[2018-09-01] MEDS ORDERED: HYDROcodone/Acetamin 7.5/325 tab ORAL PRN (12:00)
[2018-09-01] MEDS ORDERED: Atropine Sulfate 0.4mg/ml inj IVP PRN (12:00)
[2018-09-01] MEDS ORDERED: Propofol 200mg/20ml IV ONE (12:00)
[2018-09-01] MEDS ORDERED: DiphenhydrAMINE 50mg/ml Inj IVP PRN (12:00)
[2018-09-01] MEDS ORDERED: fentaNYL 100 mcg/2 mL IV PRN (12:00)
[2018-09-01] MEDS ORDERED: oxyCODONE HCL/Acetaminophen 5/325mg ORAL PRN ×2 (12:00→18:00)
--- NOTE | 2018-09-01 12:09 | Pre-Procedure Note/Attestation ---
Pre-Procedure Note/Attestation Complete Prior to Procedure Planned Procedure: not applicable Procedure Narrative: Patient's conservator does NOT sign consents. Patient can not sign for self. Increasing bilateral hydronephrosis rising post void residual. Will move forward in emergency setting. Indications for Procedure Pre-Operative Diagnosis: urethral stricture, urinary retention Attestation I attest that I discussed the nature of the procedure; its benefits; risks and complications; and alternatives (and the risks and benefits of such alternatives ), prior to the procedure, with the patient (or the patient's legal field marketing representative). I attest that, if there was a reasonable possibility of needing a blood transfusion, the patient (or the patient's legal field marketing representative) was given the [place] [employer] standardized written summary, pursuant to the [place] Blood Safety Act ([place] Health and Safety Code # 1645, as amended). I attest that I re-evaluated the patient just prior to the surgery and that there has been no change in the patient's H&P, except as documented below: Loco Vila M.D. September 01, 2018 12:09
--- NOTE | 2018-09-01 12:40 | NUR ---
NURSE NOTES: Pt back from surgery. Received report from Sharon Little RN. Pt in bed, awake, talkative, no distress, no complaints of pain, suprapubic site clean and dry, dressing intact, penis dressing is 4x4 and ABD pad some blood noted and expected per Dr. Vila, vitals obtained per protocol, all BP meds given and pre-op orders resumed, bed in lowest position and call light within reach, bed alarm on. Pt tolerated clear liquid well, resumed pre-op diet and pt given late lunch tray, tolerating food. Addendum: 09/01/18 at 1529 by ERICK VERDUZCO RN NURSE NOTES: Catheter secured to leg and draining. Addendum: 09/01/18 at 1610 by ERICK VERDUZCO RN NURSE NOTES: Original note written at 1440. 1240 time was placed in error
--- NOTE | 2018-09-01 13:05 | Pulmonology Progress Note ---
Assessment/Plan Assessment/Plan 1. Acute renal failure. 2. UTI 3. BPH. 4. Hypertension. 5. Seizure Disorder 6. Anemia 7. Likely pulmonary edema 8. [place] Cardiomyopathy 9. Dementia PLAN diurese as able still with some edema on cxr oxygen as needed monitor imaging and labs later this week repeat cxr reviewed respiratory care follow up exam cards follow up for optimization oxygen needs reviewed impression, plan, and exam edited and reviewed in detail care discussed with RN Subjective Allergies: Coded Allergies: NO KNOWN DRUG ALLERGIES (Unverified Allergy, Unknown, 04/11/14) Subjective events noted comfortable no distress and alert Objective Last 24 Hour Vital Signs Date Time Temp Pulse Resp B/P (MAP) Pulse Ox O2 Delivery O2 Flow Rate FiO2 09/01/18 11:40 98.1 80 20 148/64 (92) 95 09/01/18 09:00 Room Air 09/01/18 09:00 82 152/60 09/01/18 09:00 82 152/60 09/01/18 09:00 152/60 09/01/18 07:58 98.3 82 20 152/60 (90) 97 09/01/18 07:42 76 09/01/18 07:40 80 18 99 Nasal Cannula 2.0 28 09/01/18 07:33 97 Nasal Cannula 2.0 28 09/01/18 07:32 77 18 97 Nasal Cannula 2.0 28 09/01/18 05:34 142/73 09/01/18 05:33 142/73 09/01/18 04:00 97.8 80 21 142/73 (96) 95 09/01/18 03:25 82 09/01/18 00:39 86 18 99 Nasal Cannula 2.0 28 09/01/18 00:29 81 18 97 Nasal Cannula 2.0 28 08/31/18 23:57 98.0 74 20 135/64 (87) 96 08/31/18 23:39 73 08/31/18 22:32 153/77 08/31/18 22:32 153/77 08/31/18 21:21 85 153/77 08/31/18 21:00 Room Air 08/31/18 20:10 81 08/31/18 20:00 98.0 85 20 153/77 (102) 94 08/31/18 19:41 85 18 97 Nasal Cannula 2.0 28 08/31/18 19:35 96 Nasal Cannula 2.0 28 08/31/18 19:31 85 18 96 Nasal Cannula 2.0 28 08/31/18 17:13 78 142/41 08/31/18 16:23 73 08/31/18 16:00 98.3 78 20 142/41 (74) 95 08/31/18 13:51 146/84 08/31/18 13:51 146/84 08/31/18 13:51 146/84 Intake and Output 08/31/18 09/01/18 19:00 07:00 Intake Total 82.5 ml 230.0 ml Balance 82.5 ml 230.0 ml Intake Oral 120 ml IV Total 82.5 ml 110.0 ml # Voids 1 1 # Bowel Movements 1 Objective WDWN NAD clear breath sounds bilaterally without rhonchi or wheeze [id number] without MRG NABS nontender no HSM no CC mild edema nonfocal reviewed and edited Laboratory Tests 09/01/18 08:55: White Blood Count 10.9H, Red Blood Count 3.68L, Hemoglobin 10.9L, Hematocrit 32.9L, Mean Corpuscular Volume 89, Mean Corpuscular Hemoglobin 29.7, Mean Corpuscular Hemoglobin Concent 33.3, Red Cell Distribution Width 14.1, Platelet Count 335, Mean Platelet Volume 5.1L, Neutrophils (%) (Auto) 76.0H, Lymphocytes (%) (Auto) 10.9L, Monocytes (%) (Auto) 9.3, Eosinophils (%) (Auto) 2.7, Basophils (%) (Auto) 1.1, Prothrombin Time 26.7H, Prothromb Time International Ratio 2.7H, Activated Partial Thromboplast Time 49H, Sodium Level 140, Potassium Level 3.5, Chloride Level 103, Carbon Dioxide Level 19L, Anion Gap 19H , Blood Urea Nitrogen 42H, Creatinine 3.6H, Estimat Glomerular Filtration Rate , Glucose Level 122H, Uric Acid 6.9, Calcium Level 7.9L, Phosphorus Level 4.5, Magnesium Level 1.8, Total Bilirubin 0.3, Aspartate Amino Transf (AST/SGOT) 23, Alanine Aminotransferase (ALT/SGPT) < 6L, Alkaline Phosphatase 122H, C-Reactive Protein, Quantitative 8.0H, Pro-B-Type Natriuretic Peptide > 07659I, Total Protein 7.0, Albumin 1.9L, Globulin 5.1, Albumin/Globulin Ratio 0.4L Current Medications Medications (Trade) Dose Ordered Sig/Thu Route PRN Reason Start Time Stop Time Status Last Admin Dose Admin Acetaminophen (Tylenol) 650 mg Q6H PRN ORAL For Pain 08/26/18 12:30 09/18/18 12:29 Acetaminophen/ Hydrocodone Bitart (Datil 5/325) 1 tab Q1H PRN ORAL Mild Pain (Pain Scale 1-3) 09/01/18 12:00 09/01/18 20:00 Acetaminophen/ Hydrocodone Bitart (Datil 7.5/325) 1 tab Q1H PRN ORAL Moderate Pain (Pain Scale 4-6) 09/01/18 12:00 09/01/18 20:00 Al Hydroxide/Mg Hydroxide (Mylanta) 15 ml Q1H PRN ORAL gi upset 09/01/18 12:00 09/01/18 20:00 Amlodipine Besylate (Norvasc) 5 mg BID ORAL 08/30/18 18:00 09/27/18 13:59 08/31/18 17:13 Aspirin (ASA) 81 mg DAILY ORAL 08/27/18 09:00 09/26/18 08:59 08/31/18 09:45 Atropine Sulfate (Atropine 0.4mg/ ml) 0.5 mg Q5M PRN IVP HR<40 09/01/18 12:00 09/01/18 20:00 Carbidopa/Levodopa (Sinemet 25/100) 1 tab THREE TIMES A DAY ORAL 08/26/18 13:00 09/19/18 08:59 08/31/18 17:13 Carvedilol (Coreg) 25 mg EVERY 12 HOURS ORAL 08/30/18 09:00 09/29/18 08:59 08/31/18 21:21 Citalopram Hydrobromide (celeXA) 20 mg DAILY ORAL 08/27/18 09:00 09/19/18 08:59 08/31/18 09:46 Clonidine HCl (Catapres tab) 0.2 mg EVERY 8 HOURS ORAL 08/30/18 22:00 09/19/18 00:00 09/01/18 05:33 Dextromethorphan/ Quinidine (Nuedexta Capsule) 1 cap Q12HR ORAL 08/26/18 21:00 09/19/18 08:59 08/31/18 21:21 Dextrose (Dextrose 50%) 25 ml Q30M PRN IV Hypoglycemia 08/26/18 12:15 09/18/18 22:44 Dextrose (Dextrose 50%) 50 ml Q30M PRN IV Hypoglycemia 08/26/18 12:15 09/18/18 22:44 Diphenhydramine HCl (Benadryl) 25 mg Q15M PRN IVP Itching 09/01/18 12:00 09/01/18 20:00 Docusate Sodium (Colace) 100 mg TID ORAL 08/26/18 13:00 09/19/18 08:59 08/31/18 17:13 Donepezil HCl (Aricept) 10 mg DAILY ORAL 08/27/18 09:00 09/19/18 08:59 08/31/18 09:45 Epoetin Zaid (Epoetin Zaid-EPBX(NON ESRD)) 10,000 unit SUBQ 08/29/18 21:00 09/28/18 20:59 08/31/18 21:20 Fentanyl Citrate (Sublimaze 100 mcg/2 mL) 25 mcg Q10M PRN IV Moderate Pain (Pain Scale 4-6) 09/01/18 12:00 09/01/18 20:00 Finasteride (Proscar) 5 mg DAILY ORAL 08/27/18 09:00 09/19/18 08:59 08/31/18 09:46 Hydralazine HCl (Apresoline) 5 mg Q30M PRN IV SBP>160 / DBP>90 09/01/18 12:00 09/01/18 20:00 Hydralazine HCl (Apresoline) 25 mg Q4H PRN ORAL bp over 160 syst 08/28/18 14:00 09/27/18 13:59 Hydralazine HCl (Apresoline) 100 mg Q8HR ORAL 08/29/18 06:00 09/28/18 05:59 09/01/18 05:34 Hydromorphone HCl (Dilaudid) 0.5 mg Q15M PRN IVP Severe Pain (Pain Scale 7-10) 09/01/18 12:00 09/01/18 20:00 Insulin Aspart (NovoLOG) BEFORE MEALS AND HS SUBQ 08/26/18 16:30 09/19/18 06:29 09/01/18 05:34 Isosorbide Mononitrate (Imdur) 60 mg DAILY ORAL 08/30/18 09:00 09/29/18 08:59 08/31/18 09:45 Lactated Ringer's 1,000 ml @ 10 mls/hr Q24H IVLG 09/01/18 11:49 09/01/18 13:48 Lorazepam (Ativan 2mg/ml 1ml) 1 mg Q15M PRN IV For Anxiety 09/01/18 12:00 09/01/18 20:00 Lorazepam (Ativan 2mg/ml 1ml) 2 mg Q2H PRN IV For Anxiety 08/26/18 12:15 09/02/18 10:14 Midazolam HCl (Versed 2mg/2ml vial) 1 mg Q15M PRN IVP For Anxiety 09/01/18 12:00 09/01/18 20:00 Nitroglycerin (Ntg) 1 patch Q24H TDERMAL 08/27/18 15:00 09/26/18 14:59 08/31/18 13:51 Oxycodone/ Acetaminophen (Percocet 5-325) 1 tab Q1H PRN ORAL Severe Pain (Pain Scale 7-10) 09/01/18 12:00 09/01/18 20:00 Pantoprazole (Protonix) 40 mg BID ORAL 08/27/18 14:15 09/26/18 14:14 08/31/18 17:13 Phenytoin (Dilantin) 100 mg Q8HR ORAL 08/31/18 14:00 09/25/18 12:59 09/01/18 05:33 Piperacillin Sod/ Tazobactam Sod 3.375 gm/Sodium Chloride 110 ml @ 27.5 mls/hr Q12H IVPB 08/26/18 13:00 09/05/18 12:59 09/01/18 00:13 Pravastatin Sodium (Pravachol) 80 mg BEDTIME ORAL 08/26/18 21:00 09/19/18 20:59 08/31/18 21:20 Sodium Citrate (Bicitra) 30 ml BID ORAL 08/31/18 18:00 09/30/18 17:59 08/31/18 17:13 Tamsulosin HCl (Flomax) 0.4 mg BID ORAL 08/26/18 18:00 09/19/18 20:59 08/31/18 17:13 Vitamin B Complex/ Vit C/Folic Acid (Nephrovite) 1 tab DAILY ORAL 08/27/18 09:00 09/19/18 08:59 08/31/18 09:45 Hari Ogden MD September 01, 2018 13:05
--- NOTE | 2018-09-01 13:45 | Brief Operative Note ---
Immediate Post Operative Note Operative Note Pre-op Diagnosis: urethral stricture, urinary retention Procedure: cystoscopy, attempted urethral dilation, suprapubic tube placement Post-op Diagnosis: same as pre-op Surgeon: helen [employer]el[employer] Department Supervisor: pau Anesthesiologist: chalino Anesthesia: general Specimen: none Complications: none Condition: stable Fluids: see anesthesia note Estimated Blood Loss: minimal Drains: other Implant(s) used?: No Loco Vila M.D. September 01, 2018 13:45
--- NOTE | 2018-09-01 13:48 | Urology Progress Note ---
Assessment/Plan Status: stable, progressing Assessment/Plan: suprapubic tube placed. likely better option for patient as scar tissue is quite dense in the urethra. 1. continue suprapubic tube indefinitely. will need to get changed every 4-6 weeks. will eventually upsize as well. 2. may need bedside monitoring so patient does not self DC sp tube. Subjective Date patient seen: September 01, 2018 Constitutional: Denies: no symptoms, chills, diaphoresis, fever, malaise, weakness, other HEENT: Denies: no symptoms, eye pain, blurred vision, tearing, double vision, ear pain, ear discharge, nose pain, nose congestion, throat pain, throat swelling, mouth pain, mouth swelling, other Cardiovascular: Denies: no symptoms, chest pain, edema, irregular heart rate, lightheadedness, palpitations, syncope, other Allergies: Coded Allergies: NO KNOWN DRUG ALLERGIES (Unverified Allergy, Unknown, 04/11/14) Subjective procedure done, suprapubic tube in place. dense urethral scar tissue, unable to place urethral weathers. Objective Last 24 Hour Vital Signs Date Time Temp Pulse Resp B/P (MAP) Pulse Ox O2 Delivery O2 Flow Rate FiO2 09/01/18 12:13 90 09/01/18 11:40 98.1 80 20 148/64 (92) 95 09/01/18 09:00 Room Air 09/01/18 09:00 82 152/60 09/01/18 09:00 82 152/60 09/01/18 09:00 152/60 09/01/18 07:58 98.3 82 20 152/60 (90) 97 09/01/18 07:42 76 09/01/18 07:40 80 18 99 Nasal Cannula 2.0 28 09/01/18 07:33 97 Nasal Cannula 2.0 28 09/01/18 07:32 77 18 97 Nasal Cannula 2.0 28 09/01/18 05:34 142/73 09/01/18 05:33 142/73 09/01/18 04:00 97.8 80 21 142/73 (96) 95 09/01/18 03:25 82 09/01/18 00:39 86 18 99 Nasal Cannula 2.0 28 09/01/18 00:29 81 18 97 Nasal Cannula 2.0 08/31/18 23:57 98.0 74 20 135/64 (87) 96 08/31/18 23:39 73 08/31/18 22:32 153/77 08/31/18 22:32 153/77 08/31/18 21:21 85 153/77 08/31/18 21:00 Room Air 08/31/18 20:10 81 08/31/18 20:00 98.0 85 20 153/77 (102) 94 08/31/18 19:41 85 18 97 Nasal Cannula 2.0 08/31/18 19:35 96 Nasal Cannula 2.0 28 08/31/18 19:31 85 18 96 Nasal Cannula 2.0 28 08/31/18 17:13 78 142/41 08/31/18 16:23 73 08/31/18 16:00 98.3 78 20 142/41 (74) 95 08/31/18 13:51 146/84 08/31/18 13:51 146/84 08/31/18 13:51 146/84 Intake and Output 08/31/18 09/01/18 18:59 06:59 Intake Total 82.5 ml 230.0 ml Balance 82.5 ml 230.0 ml Intake Oral 120 ml IV Total 82.5 ml 110.0 ml # Voids 1 1 # Bowel Movements 1 Laboratory Tests 09/01/18 08:55: White Blood Count 10.9H, Red Blood Count 3.68L, Hemoglobin 10.9L, Hematocrit 32.9L, Mean Corpuscular Volume 89, Mean Corpuscular Hemoglobin 29.7, Mean Corpuscular Hemoglobin Concent 33.3, Red Cell Distribution Width 14.1, Platelet Count 335, Mean Platelet Volume 5.1L, Neutrophils (%) (Auto) 76.0H, Lymphocytes (%) (Auto) 10.9L, Monocytes (%) (Auto) 9.3, Eosinophils (%) (Auto) 2.7, Basophils (%) (Auto) 1.1, Prothrombin Time 26.7H, Prothromb Time International Ratio 2.7H, Activated Partial Thromboplast Time 49H, Sodium Level 140, Potassium Level 3.5, Chloride Level 103, Carbon Dioxide Level 19L, Anion Gap 19H , Blood Urea Nitrogen 42H, Creatinine 3.6H, Estimat Glomerular Filtration Rate , Glucose Level 122H, Uric Acid 6.9, Calcium Level 7.9L, Phosphorus Level 4.5, Magnesium Level 1.8, Total Bilirubin 0.3, Aspartate Amino Transf (AST/SGOT) 23, Alanine Aminotransferase (ALT/SGPT) < 6L, Alkaline Phosphatase 122H, C-Reactive Protein, Quantitative 8.0H, Pro-B-Type Natriuretic Peptide > 45264Z, Total Protein 7.0, Albumin 1.9L, Globulin 5.1, Albumin/Globulin Ratio 0.4L Height (Feet): 5 Height (Inches): 6.00 Weight (Pounds): 172 General Appearance: no apparent distress Loco Vila M.D. September 01, 2018 13:48
[2018-09-01] MEDS: Nitroglycerin Patch 0.4mg TDERMAL SCH (14:56)
[2018-09-01] MEDS ORDERED: Morphine Sulfate 2mg/ml Inj(IV/IM USE ONLY) IVP PRN (18:00)
--- NOTE | 2018-09-01 19:10 | NUR ---
NURSE NOTES: Received report from Derek Rn, pt. in bed awake, Alert to name and place- able to make needs known, cardiac monitoring on, no signs or symptoms of acute cardiac or respiratory distress noted, bed in lowest position and call light within easy reach, bed alarm on, side rails up x's3 and safety brakes engaged, pt.appears to be in bed resting comfortably, pt. appears to be sating well on room air at 97%- no distress noted, Supra pubic cath intact and draining to gravity, MYRNA IV intact and patent, safety measures continued, will continue with plan of care. no seizure activity noted during assessment, safety measures continued, will continue with plan of care. Addendum: 09/02/18 at 0154 by ROSANNA MONTOYA RN RN urine noted to be color reddish brown -but no clots noted, will continue to monitor pt. and with plan of care.
--- NOTE | 2018-09-01 19:26 | NUR ---
HAND-OFF: Report given to PARAM Moreno.
--- NOTE | 2018-09-01 19:45 | Operative Note - Dictated ---
DATE OF OPERATION: 09/01/2018 PRIMARY SURGEON: Loco Vila M.D. PREOPERATIVE DIAGNOSES: Urethral stricture and urinary retention. POSTOPERATIVE DIAGNOSES: Urethral stricture and urinary retention. PROCEDURE PERFORMED: Cystoscopy and suprapubic tube placement. ANESTHESIA: General. EBL: Minimal. COMPLICATIONS: None. DRAINS: A 14-[place] suprapubic tube. SPECIMEN: None. COMPLICATIONS: None. PREOPERATIVE HISTORY: This is a 73-year-old gentleman, unfortunately suffering from dementia. He is on conservatorship living in a home, came to [place] last weekend with urinary retention. He is unable to tolerate bedside San catheter placement and/or dilation. 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 The patient cannot consent for himself and is very belligerent and will not comply with bedside instrumentation. The patient's conservator interestingly does not consent for procedures so the patient will be done as an emergency today due to worsening retention and bilateral hydronephrosis that is also worsening. OPERATIVE PROCEDURE: The patient was brought into the operating room, where general anesthesia was achieved easily. He was placed in the dorsal lithotomy position. All pressure points were padded. The perineum and lower abdomen were prepped and draped in a sterile fashion. A 23-[place] cystoscope sheath was placed into the urethra and the urethra itself was normal up into the level of what was likely the bulb of the urethra. A very dense stricture was noted with very little true lumen visualized. A 4-[place] and 6-[place] ureteral catheter were used in an attempt to intubate potential true lumen and the Glidewire was attempted to be used to multiple spots that could have been the true lumen but nothing seemed to be passing into the bladder. A 17-[place] cystoscope sheath was also used. I was unable to navigate through the scar tissue as well as a flexible cystoscope. At this point, I aborted any further measures to achieve retrograde instrumentation. The patient's bladder was already very full, so cystoscope was removed and a 2 cm vertical incision was made 2 fingerbreadths above the pubic symphysis. A spinal needle was used to confirm placement and depth of bladder. Spring of clear yellow urine was noted approximately 3 cm down. A [employer] suprapubic tube introducing kit was used through the previously made incision to deliver a 12-[place] to a suprapubic tube into the bladder easily. The introducing stylet and trocar were then removed. A 10 mL of water was filled in the balloon. The catheter was irrigated easily and continuously flowed with yellowish brown urine easily. The catheter was secured to the skin with a 1-0 silk suture in a drain stitch fashion and then the drain. The suprapubic tube was dressed with drain, sponges, Kerlix, and foam tape in hopes of minimizing likelihood of self removal. At this point, the patient was then woken up and taken to recovery room in stable fashion. I was present for the entire case. All needle and instrument counts were correct at the end of the case. PLAN: 1. The patient will be observed for another day to observe decompression and hopefully resolution of his hydronephrosis and acute on chronic renal failure. The patient likely would benefit from staying suprapubic tube dependent, which will avoid the need for urethral instrumentation in the future. 2. The patient and conservator should be educated on the need for changing of the suprapubic tube every 4 to 6 weeks and will likely need to be up sized in the next few months as well. Loco Vila DR: MARIO JOB#: [id number] CC:
[2018-09-02] VITALS: BP 138/69
[2018-09-02] MEDS: Piperacillin/Tazobactam 3.375 GM in NS 110 ML IVPB SCH ×2 (00:34→13:39)
--- NOTE | 2018-09-02 01:45 | Progress Note ---
CARDIOLOGY PROGRESS NOTE DATE: 09/01/2018 SUBJECTIVE: The patient is status post urologic procedure with urethral dilatation with no complication. The patient remains off anticoagulation due to bleeding concerns including a stool occult blood test that was positive. OBJECTIVE: VITAL SIGNS: Blood pressure 152/60, pulse 82, respirations 20, and afebrile. LUNGS: Clear. CARDIAC: Regular rhythm and rate. Normal S1, S2 with a fourth heart sound. ABDOMEN: Soft, mildly distended. No guarding or rebound. EXTREMITIES: No edema. LABORATORY DATA: White count 10.9, hemoglobin 10.9. Sodium 140, potassium 3.5, magnesium 1.8, bicarb 19, BUN 42, creatinine 3.6. Pro-natriuretic peptide over 35,000. Albumin is 1.9. IMPRESSION: 1. Acute myocardial infarction. 2. Severe protein-calorie malnutrition. 3. Acute renal failure due to obstructive uropathy. 4. Acute on chronic diastolic congestive heart failure. 5. Acute deep venous thrombosis. PLAN: 1. Antimicrobials. 2. Monitor renal function. 3. Maintenance hydration. 4. Protein supplement. 5. Possible IVC filter. 6. Hold anti-platelet therapy. 7. Add beta-jinny. Eric Brown M.D. DR: KAREN JOB#: [id number] CC:
--- NOTE | 2018-09-02 01:54 | NUR ---
NURSE NOTES: urine continues to be noted reddish brown in color -but no clots noted, will continue to monitor pt. and with plan of care.
[2018-09-02 04:00] VITALS: BP 157/84
[2018-09-02] MEDS: HydrALAZINE 50mg tab ORAL SCH ×3 (05:10→21:46)
[2018-09-02] MEDS: Phenytoin 100mg cap ORAL SCH ×3 (05:10→21:45)
--- NOTE | 2018-09-02 06:00 | NUR ---
NURSE NOTES: dressing noted to be saturated in red tinged color-cleansed supra pubic catheter area with normal saline and applied new dressing - will f/u with . pt. appears to be stable and no signs of distress noted.
[2018-09-02] MEDS: NovoLOG Insulin Flexpen SUBQ SCH ×5 (06:06→21:49)
[2018-09-02] MEDS: cloNIDine 0.2mg Tab ORAL SCH ×3 (06:08→21:46)
--- NOTE | 2018-09-02 06:23 | NUR ---
NURSE NOTES: left message for DR. Vila- waiting for call back from doctor.
--- NOTE | 2018-09-02 07:04 | NUR ---
HAND-OFF: Report given to Betzaida RN, pt. remains stable and no signs of distress noted. bandage to supra pubic area clean and dry and no blood noted- during hand off rounds.
--- NOTE | 2018-09-02 07:36 | General Progress Note ---
Assessment/Plan Problem List: (1) Acute renal insufficiency ICD Codes: N28.9 - Disorder of kidney and ureter, unspecified SNOMED: 45740570 (2) Leukocytosis ICD Codes: D72.829 - Elevated white blood cell count, unspecified SNOMED: 621678356 (3) Hematuria, gross ICD Codes: R31.0 - Gross hematuria SNOMED: 446882133 (4) Prostate hypertrophy ICD Codes: N40.0 - Benign prostatic hyperplasia without lower urinary tract symptoms SNOMED: 802899370 (5) UTI (urinary tract infection) ICD Codes: N39.0 - Urinary tract infection, site not specified SNOMED: 15331964 (6) Urethral stricture SNOMED: 57632574 (7) AMI (acute myocardial infarction) ICD Codes: I21.9 - Acute myocardial infarction, unspecified SNOMED: 17858013 Status: stable, progressing Assessment/Plan: suprapubic catheter to gravity cautious antiplt rx BP rx cannot anticoagulate with hematuria, anemia, ob + stool will order emergent ivc filter. at risk for life threatening PE. cannot anticoagulate Subjective ROS Limited/Unobtainable: No Constitutional: Reports: malaise, weakness HEENT: Reports: no symptoms Cardiovascular: Reports: no symptoms Respiratory: Reports: no symptoms Gastrointestinal/Abdominal: Reports: no symptoms Genitourinary: Reports: no symptoms Neurologic/Psychiatric: Reports: no symptoms Endocrine: Reports: no symptoms Allergies: Coded Allergies: NO KNOWN DRUG ALLERGIES (Unverified Allergy, Unknown, 04/11/14) All Systems: reviewed and negative except above Subjective s/p cysto and suprapubic catheter placement. +hematuria. no complaints. denies cp/sob Objective Last 24 Hour Vital Signs Date Time Temp Pulse Resp B/P (MAP) Pulse Ox O2 Delivery O2 Flow Rate FiO2 09/02/18 06:08 152/79 09/02/18 05:10 157/84 09/02/18 04:00 83 09/02/18 04:00 98.3 88 18 157/84 (108) 97 09/02/18 00:00 77 09/02/18 00:00 98.4 81 18 138/69 (92) 97 09/01/18 22:00 128/62 09/01/18 21:34 164/82 09/01/18 21:26 97 Nasal Cannula 2.0 28 09/01/18 21:00 Room Air 09/01/18 20:37 87 183/99 09/01/18 20:00 80 09/01/18 20:00 98.1 87 19 183/99 (127) 96 09/01/18 18:28 97.7 09/01/18 17:13 78 134/69 09/01/18 16:45 98.2 78 16 134/69 (90) 98 09/01/18 16:16 97.7 75 16 152/72 (98) 97 09/01/18 15:45 98.1 75 14 151/74 (99) 98 09/01/18 15:15 97.0 16 14 177/77 (110) 98 87 09/01/18 15:11 95 09/01/18 14:56 194/95 09/01/18 14:56 194/95 09/01/18 14:55 194/95 09/01/18 14:45 96.8 77 16 194/95 (128) 98 09/01/18 14:29 97.6 77 17 177/76 98 Room Air 09/01/18 14:20 76 16 177/78 97 Room Air 09/01/18 14:15 74 18 176/83 99 Room Air 09/01/18 14:05 76 20 166/89 97 Room Air 09/01/18 14:00 76 17 174/80 97 Room Air 09/01/18 13:53 97.8 78 16 185/102 99 Simple Mask 6 09/01/18 13:50 79 16 99 09/01/18 12:13 90 09/01/18 11:40 98.1 80 20 148/64 (92) 95 09/01/18 09:00 Room Air 09/01/18 09:00 82 152/60 09/01/18 09:00 82 152/60 09/01/18 09:00 152/60 09/01/18 07:58 98.3 82 20 152/60 (90) 97 09/01/18 07:42 76 09/01/18 07:40 80 18 99 Nasal Cannula 2.0 28 Intake and Output 09/01/18 09/02/18 19:00 07:00 Intake Total 1750 ml 82.5 ml Output Total 1075 ml 750 ml Balance 675 ml -667.5 ml Intake Oral 1400 ml IV Total 350 ml 82.5 ml Output Urine Total 1075 ml 750 ml # Voids 1 # Bowel Movements 2 2 Laboratory Tests 09/01/18 08:55: White Blood Count 10.9H, Red Blood Count 3.68L, Hemoglobin 10.9L, Hematocrit 32.9L, Mean Corpuscular Volume 89, Mean Corpuscular Hemoglobin 29.7, Mean Corpuscular Hemoglobin Concent 33.3, Red Cell Distribution Width 14.1, Platelet Count 335, Mean Platelet Volume 5.1L, Neutrophils (%) (Auto) 76.0H, Lymphocytes (%) (Auto) 10.9L, Monocytes (%) (Auto) 9.3, Eosinophils (%) (Auto) 2.7, Basophils (%) (Auto) 1.1, Prothrombin Time 26.7H, Prothromb Time International Ratio 2.7H, Activated Partial Thromboplast Time 49H, Sodium Level 140, Potassium Level 3.5, Chloride Level 103, Carbon Dioxide Level 19L, Anion Gap 19H , Blood Urea Nitrogen 42H, Creatinine 3.6H, Estimat Glomerular Filtration Rate , Glucose Level 122H, Uric Acid 6.9, Calcium Level 7.9L, Phosphorus Level 4.5, Magnesium Level 1.8, Total Bilirubin 0.3, Aspartate Amino Transf (AST/SGOT) 23, Alanine Aminotransferase (ALT/SGPT) < 6L, Alkaline Phosphatase 122H, C-Reactive Protein, Quantitative 8.0H, Pro-B-Type Natriuretic Peptide > 31783D, Total Protein 7.0, Albumin 1.9L, Globulin 5.1, Albumin/Globulin Ratio 0.4L 09/01/18 18:35: Stool Occult Blood [Pending] Height (Feet): 5 Height (Inches): 6.00 Weight (Pounds): 172 General Appearance: WD/WN, alert Neck: supple Cardiovascular: normal rate Respiratory/Chest: chest wall non-tender, lungs clear, normal breath sounds Abdomen: normal bowel sounds, non tender, soft, no organomegaly Edema: no edema noted Arm (L), no edema noted Arm (R), no edema noted Leg (L), no edema noted Leg (R), no edema noted Pedal (L), no edema noted Pedal (R), no edema noted Generalized Objective General Appearance: WD/WN, alert Neck: supple Cardiovascular: normal rate, regular rhythm Respiratory/Chest: chest wall non-tender, lungs - rhonchi and wheezes Abdomen: normal bowel sounds, non tender, soft, no organomegaly Edema: 1+ edema Anthony Alejandro MD September 02, 2018 07:36
[2018-09-02] MEDS ORDERED: Lidocaine 1% Plain 30 ml INJ PRN (07:45)
[2018-09-02 08:00] VITALS: BP 182/90
--- NOTE | 2018-09-02 08:01 | NUR ---
NURSE NOTES: Pt in bed in low position, HOB in semi fowlers, Pt Ox2 some what cooperative, Suprapubic in place and patent and draining: no blood on dressing noted and observed, pt denies pain, Pt is able to move around bed, bed alarm on, IV site patent and intact, no s/s of distress or sob noted. scheduled for IVC filter but coag panel high.
[2018-09-02] MEDS: Carvedilol 25mg Tab ORAL SCH ×2 (09:41→21:46)
[2018-09-02] MEDS: Metoprolol 25mg tab ORAL SCH ×2 (09:41→21:47)
[2018-09-02] MEDS: Sodium Citrate 30ml ORAL SCH ×2 (09:41→18:22)
[2018-09-02] MEDS: Imdur 30mg tab ORAL SCH (09:41)
[2018-09-02] MEDS: Aspirin Baby 81mg ORAL SCH (09:41)
[2018-09-02] MEDS: Levodopa/Carbidopa 25/100 tab ORAL SCH ×3 (09:42→18:22)
[2018-09-02] MEDS: Citalopram Hydrobromide 10mg Tab ORAL SCH (09:42)
[2018-09-02] MEDS: Donepezil 10mg tab ORAL SCH (09:42)
[2018-09-02] MEDS: Tamsulosin 0.4mg cap ORAL SCH ×2 (09:42→18:22)
[2018-09-02] MEDS: Docusate 100mg cap ORAL SCH ×3 (09:42→18:22)
[2018-09-02] MEDS: Nuedexta Capsule 20/10mg ORAL SCH ×2 (09:42→21:47)
[2018-09-02] MEDS: Nephrovite tab (Rena-Vite) ORAL SCH (09:42)
[2018-09-02 09:55] LABS: BASOPHILS % (AUTO) 1.2 % (0.0-2.0); EOSINOPHILS % (AUTO) 0.8 % (0.0-3.0); HEMATOCRIT 32.3 % (42.0-52.0); HEMOGLOBIN 10.9 G/DL (14.2-18.0); LYMPHOCYTES % (AUTO) 7.4 % (20.0-45.0); MEAN CORPUSCULAR VOLUME 89 FL (80-99); NEUTROPHILS % (AUTO) 82.6 % (45.0-75.0); PLATELET COUNT 329 K/UL (150-450); RED BLOOD COUNT 3.61 M/UL (4.70-6.10); RED CELL DISTRIBUTION WIDTH 14.7 % (11.6-14.8); WHITE BLOOD COUNT 15.1 K/UL (4.8-10.8)
[2018-09-02 10:01] LABS: ANION GAP 16 mmol/L (5-15); BLOOD UREA NITROGEN 39 mg/dL (7-18); CALCIUM 7.9 MG/DL (8.5-10.1); CARBON DIOXIDE 20 MMOL/L (21-32); CHLORIDE 102 MMOL/L (98-107); CREATININE 3.6 MG/DL (0.55-1.30); POTASSIUM 3.5 MMOL/L (3.5-5.1); SODIUM 138 MMOL/L (136-145)
[2018-09-02 10:05] LABS: ALANINE AMINOTRANSFERASE 6 U/L (12-78); ALBUMIN/GLOBULIN RATIO 0.4 (1.0-2.7); ALKALINE PHOSPHATASE 121 U/L (46-116); ASPARTATE AMINO TRANSFERASE 23 U/L (15-37); BILIRUBIN,TOTAL 0.4 MG/DL (0.2-1.0); PHOSPHORUS 4.3 MG/DL (2.5-4.9)
--- NOTE | 2018-09-02 10:22 | NUR ---
CASE MANAGEMENT:REVIEW 09/02/18 SI: SEVEN. HEMATURIA. UTI. AMI URETHRAL STRICTURE ~ POD #1 S/P CYSTOSCOPY AND TUBE PLACEMENT 97.9 83 18 182/90 97% ON RA WBC+15.1 BUN+39 CR+3.6 IS: IV ZOSYN Q12 LOPRESSOR PO Q12 CLONIDINE PO Q8 NORVASC PO BID IMDUR PO QD COREG PO Q12 HYDRALAZINE PO Q8HR FLOMAX PO BID ASA PO QD : TELEMETRY STATUS DCP: FROM NURIA CASEY
[2018-09-02 12:00] VITALS: BP 121/73
--- NOTE | 2018-09-02 13:51 | Nephrology Progress Note ---
Assessment/Plan Problem List: (1) Renal failure (ARF), acute on chronic (2) Prostate hypertrophy (3) Urethral stricture (4) UTI (urinary tract infection) (5) Bilateral hydronephrosis (6) Elevated troponin I level (7) Hypertensive kidney disease (8) Cardiomyopathy Assessment Acute on chronic renal failure Likely Diabetic Nephrosclerosis urinary retention on bladder scan Anemia of CKD Proteinuria / HypoAlbuminemia likely due to DM BPH HTN Parkinsons bilateral hydro elevated troponin Plan had cysto and supra pubic 09/01 recheck labs in am- transfuse as needed gastric support optimize cardiac status DC cogentin due to retention adjust BP meds Po Bicitra Kidney TONY noted bilateral hydro Uro intervention adjust BP meds Anemia potts check Uric Acid Urine studies up dose flomax per orders check dialntin level Left ventricular lazo in the basal regions are contracted normally however the apical segments are akinetic, 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 Mild left ventricular enlargement. Subjective ROS Limited/Unobtainable: No Constitutional: Reports: malaise Objective Objective Last 24 Hour Vital Signs Date Time Temp Pulse Resp B/P (MAP) Pulse Ox O2 Delivery O2 Flow Rate FiO2 09/02/18 13:34 121/73 09/02/18 13:34 121/73 09/02/18 12:00 98.0 77 18 121/73 (89) 95 09/02/18 09:41 83 182/90 09/02/18 09:41 83 182/90 09/02/18 09:41 83 182/90 09/02/18 09:41 182/90 09/02/18 08:09 Room Air 09/02/18 08:00 97.9 83 18 182/90 (120) 97 09/02/18 06:08 152/79 09/02/18 05:10 157/84 09/02/18 04:00 83 09/02/18 04:00 98.3 88 18 157/84 (108) 97 09/02/18 00:00 77 09/02/18 00:00 98.4 81 18 138/69 (92) 97 09/01/18 22:00 128/62 09/01/18 21:34 164/82 09/01/18 21:26 97 Nasal Cannula 2.0 28 09/01/18 21:00 Room Air 09/01/18 20:37 87 183/99 09/01/18 20:00 80 09/01/18 20:00 98.1 87 19 183/99 (127) 96 09/01/18 18:28 97.7 09/01/18 17:13 78 134/69 09/01/18 16:45 98.2 78 16 134/69 (90) 98 09/01/18 16:16 97.7 75 16 152/72 (98) 97 09/01/18 15:45 98.1 75 14 151/74 (99) 98 09/01/18 15:15 97.0 16 14 177/77 (110) 98 87 09/01/18 15:11 95 09/01/18 14:56 194/95 09/01/18 14:56 194/95 09/01/18 14:55 194/95 09/01/18 14:45 96.8 77 16 194/95 (128) 98 09/01/18 14:29 97.6 77 17 177/76 98 Room Air 09/01/18 14:20 76 16 177/78 97 Room Air 09/01/18 14:15 74 18 176/83 99 Room Air 09/01/18 14:05 76 20 166/89 97 Room Air 09/01/18 14:00 76 17 174/80 97 Room Air 09/01/18 13:53 97.8 78 16 185/102 99 Simple Mask 6 Intake and Output 09/01/18 09/02/18 19:00 07:00 Intake Total 1750 ml 82.5 ml Output Total 1075 ml 750 ml Balance 675 ml -667.5 ml Intake Oral 1400 ml IV Total 350 ml 82.5 ml Output Urine Total 1075 ml 750 ml # Voids 1 # Bowel Movements 2 2 Laboratory Tests 09/01/18 18:35: Stool Occult Blood Positive 09/02/18 09:40: White Blood Count 15.1H, Red Blood Count 3.61L, Hemoglobin 10.9L, Hematocrit 32.3L, Mean Corpuscular Volume 89, Mean Corpuscular Hemoglobin 30.1, Mean Corpuscular Hemoglobin Concent 33.7, Red Cell Distribution Width 14.7, Platelet Count 329, Mean Platelet Volume 4.8L, Neutrophils (%) (Auto) 82.6H, Lymphocytes (%) (Auto) 7.4L, Monocytes (%) (Auto) 8.0, Eosinophils (%) (Auto) 0.8, Basophils (%) (Auto) 1.2, Sodium Level 138, Potassium Level 3.5, Chloride Level 102, Carbon Dioxide Level 20L, Anion Gap 16H, Blood Urea Nitrogen 39H, Creatinine 3.6H, Estimat Glomerular Filtration Rate , Glucose Level 145H, Calcium Level 7.9L, Phosphorus Level 4.3, Total Bilirubin 0.4, Aspartate Amino Transf (AST/SGOT) 23, Alanine Aminotransferase (ALT/SGPT) 6L, Alkaline Phosphatase 121H, Total Protein 7.0, Albumin 2.0L, Globulin 5.0, Albumin/ Globulin Ratio 0.4L Height (Feet): 5 Height (Inches): 6.00 Weight (Pounds): 172 General Appearance: no apparent distress Cardiovascular: normal rate Respiratory/Chest: decreased breath sounds Abdomen: soft Genitourinary/Rectal: other - has supra pubic cath Objective no change Sukhdeep Rodriguez MD September 02, 2018 13:51
--- NOTE | 2018-09-02 14:54 | 48 Hour Post Anesthesia Eval ---
Post Anesthesia Evaluation Procedure: Cystoscopy with Ureteral Dilation Date of Evaluation: September 02, 2018 Airway: patent Nausea: No Vomiting: No Pain Intensity: 0 Hydration Status: adequate Cardiopulmonary Status: at baseline Mental Status/LOC: patient returned to baseline Post-Anesthesia Complications: 0 Follow-up care needed: N/A - further care as per primary team Marie Cast MD September 02, 2018 14:54
--- NOTE | 2018-09-02 15:00 | NUR ---
RD ASSESSMENT & RECOMMENDATIONS SEE CARE ACTIVITY FOR COMPLETE ASSESSMENT DAILY ESTIMATED NEEDS: Needs based on Renal 69kg adj 25-30 kcals/kg 3509-5236 total kcals 0.8-1.0 g protein/kg 55-69 g total protein Fluid per MD NUTRITION DIAGNOSIS: * Decreased sodium needs r/t renal insufficiency, cardiac dx as evidenced by elev BUN (66-> 39 trend down), elev creat (3.6), elev BNP >45600, elev troponin, low K (3.3 -> wnl). * Chewing difficulty R/T edentulous status as evidenced by pt on [facility] soft chopped texture. CURRENT DIET:[facility], [facility] soft chopped PO DIET RECOMMENDATIONS: Liberalized REGULAR diet w/ poor PO intake (Texture as tolerated) ADDITIONAL RECOMMENDATIONS: 1) W/ PO intake consistently >50% -> rec LOW NA, [facility] MED diet 2) Snacks TID in b/w meals -> Pt does not want Glucerna 3) Monitor lytes w/ current renal status, need for dietary restriction 4) Calibrated bedscale wt or standing wt as able for accurate CBW 5) Monitor PO intake closely, encourage PO intake- variable PO Addendum: 09/02/18 at [address] 6) Consider appetite stimulant due to consistently poor/variable PO intake
[2018-09-02 16:00] VITALS: BP 128/58
--- NOTE | 2018-09-02 19:15 | NUR ---
HAND-OFF: Report given to fredis Gallo.
--- NOTE | 2018-09-02 19:20 | NUR ---
NURSE NOTES: Received report from PARAM Ram. Patient in bed awake showing no signs of acute distress. Respiration even and non labored on room air. No SOB noted. IV line patent and intact. Suprapubic cath. dressing is soaked with blood, dressing changed. Suprapubic cath. patent and draining showing clots and hematuria. Bed in lowest position, wheels locked and alarm on. All needs attended and met. Will continue to monitor.
[2018-09-02 20:00] VITALS: BP 150/70
[2018-09-02] MEDS: Epoetin Alfa-EPBX (NON ESRD)10,000 unit/ml vial SUBQ SCH (21:47)
--- NOTE | 2018-09-02 23:11 | Pulmonology Progress Note ---
Assessment/Plan Assessment/Plan Pulmonary Progress Note HPI: The patient is a 73-year-old male admitted with urinary retention, acute renal failure. He has a history of hypertensive heart disease, BPH, seizure disorder. On initial evaluation, there was a concern about possible urinary retention, noted to have evidence of UTI. The patient had an elevated creatinine on admission. Noted to have features of Taketsubo's cardiomyopathy on Echo, patchy infiltrates on CXR Assessment/Plan 1. Acute renal failure. 2. UTI 3. BPH. 4. Hypertension. 5. Seizure Disorder 6. Anemia 7. Likely pulmonary edema 8. Taketsubo Cardiomyopathy 9. Dementia PLAN diurese as able still with some edema on cxr oxygen as needed monitor imaging and labs later this week repeat cxr reviewed respiratory care follow up exam cards follow up for optimization oxygen needs reviewed impression, plan, and exam edited and reviewed in detail care discussed with RN Subjective Allergies: Coded Allergies: NO KNOWN DRUG ALLERGIES (Unverified Allergy, Unknown, 04/11/14) Subjective events noted comfortable no distress and alert Objective Vital Signs Noted Objective WDWN NAD clear breath sounds bilaterally without rhonchi or wheeze [id number] without MRG NABS nontender no HSM no CC mild edema nonfocal reviewed and edited Laboratory Tests 09/01/18 08:55: White Blood Count 10.9H, Red Blood Count 3.68L, Hemoglobin 10.9L, Hematocrit 32.9L, Mean Corpuscular Volume 89, Mean Corpuscular Hemoglobin 29.7, Mean Corpuscular Hemoglobin Concent 33.3, Red Cell Distribution Width 14.1, Platelet Count 335, Mean Platelet Volume 5.1L, Neutrophils (%) (Auto) 76.0H, Lymphocytes (%) (Auto) 10.9L, Monocytes (%) (Auto) 9.3, Eosinophils (%) (Auto) 2.7, Basophils (%) (Auto) 1.1, Prothrombin Time 26.7H, Prothromb Time International Ratio 2.7H, Activated Partial Thromboplast Time 49H, Sodium Level 140, Potassium Level 3.5, Chloride Level 103, Carbon Dioxide Level 19L, Anion Gap 19H , Blood Urea Nitrogen 42H, Creatinine 3.6H, Estimat Glomerular Filtration Rate , Glucose Level 122H, Uric Acid 6.9, Calcium Level 7.9L, Phosphorus Level 4.5, Magnesium Level 1.8, Total Bilirubin 0.3, Aspartate Amino Transf (AST/SGOT) 23, Alanine Aminotransferase (ALT/SGPT) < 6L, Alkaline Phosphatase 122H, C-Reactive Protein, Quantitative 8.0H, Pro-B-Type Natriuretic Peptide > 91448F, Total Protein 7.0, Albumin 1.9L, Globulin 5.1, Albumin/Globulin Ratio 0.4L Current Medications Medications (Trade) Dose Ordered Sig/Thu Route PRN Reason Start Time Stop Time Status Last Admin Dose Admin Acetaminophen (Tylenol) 650 mg Q6H PRN ORAL For Pain 08/26/18 12:30 09/18/18 12:29 Acetaminophen/ Hydrocodone Bitart ([place] 5/325) 1 tab Q1H PRN ORAL Mild Pain (Pain Scale 1-3) 09/01/18 12:00 09/01/18 20:00 Acetaminophen/ Hydrocodone Bitart ([place] 7.5/325) 1 tab Q1H PRN ORAL Moderate Pain (Pain Scale 4-6) 09/01/18 12:00 09/01/18 20:00 Al Hydroxide/Mg Hydroxide (Mylanta) 15 ml Q1H PRN ORAL gi upset 09/01/18 12:00 09/01/18 20:00 Amlodipine Besylate (Norvasc) 5 mg BID ORAL 08/30/18 18:00 09/27/18 13:59 08/31/18 17:13 Aspirin (ASA) 81 mg DAILY ORAL 08/27/18 09:00 09/26/18 08:59 08/31/18 09:45 Atropine Sulfate (Atropine 0.4mg/ ml) 0.5 mg Q5M PRN IVP HR<40 09/01/18 12:00 09/01/18 20:00 Carbidopa/Levodopa (Sinemet 25/100) 1 tab THREE TIMES A DAY ORAL 08/26/18 13:00 09/19/18 08:59 08/31/18 17:13 Carvedilol (Coreg) 25 mg EVERY 12 HOURS ORAL 08/30/18 09:00 09/29/18 08:59 08/31/18 21:21 Citalopram Hydrobromide (celeXA) 20 mg DAILY ORAL 08/27/18 09:00 09/19/18 08:59 08/31/18 09:46 Clonidine HCl (Catapres tab) 0.2 mg EVERY 8 HOURS ORAL 08/30/18 22:00 09/19/18 00:00 09/01/18 05:33 Dextromethorphan/ Quinidine (Nuedexta Capsule) 1 cap Q12HR ORAL 08/26/18 21:00 09/19/18 08:59 08/31/18 21:21 Dextrose (Dextrose 50%) 25 ml Q30M PRN IV Hypoglycemia 08/26/18 12:15 09/18/18 22:44 Dextrose (Dextrose 50%) 50 ml Q30M PRN IV Hypoglycemia 08/26/18 12:15 09/18/18 22:44 Diphenhydramine HCl (Benadryl) 25 mg Q15M PRN IVP Itching 09/01/18 12:00 09/01/18 20:00 Docusate Sodium (Colace) 100 mg TID ORAL 08/26/18 13:00 09/19/18 08:59 08/31/18 17:13 Donepezil HCl (Aricept) 10 mg DAILY ORAL 08/27/18 09:00 09/19/18 08:59 08/31/18 09:45 Epoetin Zaid (Epoetin Zaid-EPBX(NON ESRD)) 10,000 unit WED-WED-WED SUBQ 08/29/18 21:00 09/28/18 20:59 08/31/18 21:20 Fentanyl Citrate (Sublimaze 100 mcg/2 mL) 25 mcg Q10M PRN IV Moderate Pain (Pain Scale 4-6) 09/01/18 12:00 09/01/18 20:00 Finasteride (Proscar) 5 mg DAILY ORAL 08/27/18 09:00 09/19/18 08:59 08/31/18 09:46 Hydralazine HCl (Apresoline) 5 mg Q30M PRN IV SBP>160 / DBP>90 09/01/18 12:00 09/01/18 20:00 Hydralazine HCl (Apresoline) 25 mg Q4H PRN ORAL bp over 160 syst 08/28/18 14:00 09/27/18 13:59 Hydralazine HCl (Apresoline) 100 mg Q8HR ORAL 08/29/18 06:00 09/28/18 05:59 09/01/18 05:34 Hydromorphone HCl (Dilaudid) 0.5 mg Q15M PRN IVP Severe Pain (Pain Scale 7-10) 09/01/18 12:00 09/01/18 20:00 Insulin Aspart (NovoLOG) BEFORE MEALS AND HS SUBQ 08/26/18 16:30 09/19/18 06:29 09/01/18 05:34 Isosorbide Mononitrate (Imdur) 60 mg DAILY ORAL 08/30/18 09:00 09/29/18 08:59 08/31/18 09:45 Lactated Ringer's 1,000 ml @ 10 mls/hr Q24H IVLG 09/01/18 11:49 09/01/18 13:48 Lorazepam (Ativan 2mg/ml 1ml) 1 mg Q15M PRN IV For Anxiety 09/01/18 12:00 09/01/18 20:00 Lorazepam (Ativan 2mg/ml 1ml) 2 mg Q2H PRN IV For Anxiety 08/26/18 12:15 09/02/18 10:14 Midazolam HCl (Versed 2mg/2ml vial) 1 mg Q15M PRN IVP For Anxiety 09/01/18 12:00 09/01/18 20:00 Nitroglycerin (Ntg) 1 patch Q24H TDERMAL 08/27/18 15:00 09/26/18 14:59 08/31/18 13:51 Oxycodone/ Acetaminophen (Percocet 5-325) 1 tab Q1H PRN ORAL Severe Pain (Pain Scale 7-10) 09/01/18 12:00 09/01/18 20:00 Pantoprazole (Protonix) 40 mg BID ORAL 08/27/18 14:15 09/26/18 14:14 08/31/18 17:13 Phenytoin (Dilantin) 100 mg Q8HR ORAL 08/31/18 14:00 09/25/18 12:59 09/01/18 05:33 Piperacillin Sod/ Tazobactam Sod 3.375 gm/Sodium Chloride 110 ml @ 27.5 mls/hr Q12H IVPB 08/26/18 13:00 09/05/18 12:59 09/01/18 00:13 Pravastatin Sodium (Pravachol) 80 mg BEDTIME ORAL 08/26/18 21:00 09/19/18 20:59 08/31/18 21:20 Sodium Citrate (Bicitra) 30 ml BID ORAL 08/31/18 18:00 09/30/18 17:59 08/31/18 17:13 Tamsulosin HCl (Flomax) 0.4 mg BID ORAL 08/26/18 18:00 09/19/18 20:59 08/31/18 17:13 Vitamin B Complex/ Vit C/Folic Acid (Nephrovite) 1 tab DAILY ORAL 08/27/18 09:00 09/19/18 08:59 08/31/18 09:45 Subjective ROS Limited/Unobtainable: No Allergies: Coded Allergies: NO KNOWN DRUG ALLERGIES (Unverified Allergy, Unknown, 04/11/14) Objective Last 24 Hour Vital Signs Date Time Temp Pulse Resp B/P (MAP) Pulse Ox O2 Delivery O2 Flow Rate FiO2 09/02/18 21:47 86 150/70 09/02/18 21:46 150/70 09/02/18 21:46 86 150/70 09/02/18 21:46 150/70 09/02/18 21:00 Room Air 09/02/18 20:20 95 Room Air 21 09/02/18 20:00 87 09/02/18 20:00 96.0 86 18 150/70 (96) 97 09/02/18 18:22 78 128/58 09/02/18 16:00 98.2 78 20 128/58 (81) 95 09/02/18 15:46 74 09/02/18 13:34 121/73 09/02/18 13:34 121/73 09/02/18 12:00 98.0 77 18 121/73 (89) 95 09/02/18 11:32 77 09/02/18 09:41 83 182/90 09/02/18 09:41 83 182/90 09/02/18 09:41 83 182/90 09/02/18 09:41 182/90 09/02/18 08:13 88 09/02/18 08:09 Room Air 09/02/18 08:00 97.9 83 18 182/90 (120) 97 09/02/18 06:08 152/79 5/31/19 05:10 157/84 09/02/18 04:00 83 09/02/18 04:00 98.3 88 18 157/84 (108) 97 09/02/18 00:00 77 09/02/18 00:00 98.4 81 18 138/69 (92) 97 Intake and Output 09/01/18 09/02/18 19:00 07:00 Intake Total 1750 ml 82.5 ml Output Total 1075 ml 750 ml Balance 675 ml -667.5 ml Intake Oral 1400 ml IV Total 350 ml 82.5 ml Output Urine Total 1075 ml 750 ml # Voids 1 # Bowel Movements 2 2 Laboratory Tests 09/02/18 09:40: White Blood Count 15.1H, Red Blood Count 3.61L, Hemoglobin 10.9L, Hematocrit 32.3L, Mean Corpuscular Volume 89, Mean Corpuscular Hemoglobin 30.1, Mean Corpuscular Hemoglobin Concent 33.7, Red Cell Distribution Width 14.7, Platelet Count 329, Mean Platelet Volume 4.8L, Neutrophils (%) (Auto) 82.6H, Lymphocytes (%) (Auto) 7.4L, Monocytes (%) (Auto) 8.0, Eosinophils (%) (Auto) 0.8, Basophils (%) (Auto) 1.2, Sodium Level 138, Potassium Level 3.5, Chloride Level 102, Carbon Dioxide Level 20L, Anion Gap 16H, Blood Urea Nitrogen 39H, Creatinine 3.6H, Estimat Glomerular Filtration Rate , Glucose Level 145H, Calcium Level 7.9L, Phosphorus Level 4.3, Total Bilirubin 0.4, Aspartate Amino Transf (AST/SGOT) 23, Alanine Aminotransferase (ALT/SGPT) 6L, Alkaline Phosphatase 121H, Total Protein 7.0, Albumin 2.0L, Globulin 5.0, Albumin/ Globulin Ratio 0.4L Current Medications Medications (Trade) Dose Ordered Sig/Thu Route PRN Reason Start Time Stop Time Status Last Admin Dose Admin Acetaminophen (Tylenol) 650 mg Q6H PRN ORAL For Pain 08/26/18 12:30 09/18/18 12:29 Amlodipine Besylate (Norvasc) 5 mg BID ORAL 08/30/18 18:00 09/27/18 13:59 09/02/18 18:22 Aspirin (ASA) 81 mg DAILY ORAL 08/27/18 09:00 6/24/19 08:59 09/02/18 09:41 Carbidopa/Levodopa (Sinemet 25/100) 1 tab THREE TIMES A DAY ORAL 08/26/18 13:00 09/19/18 08:59 09/02/18 18:22 Carvedilol (Coreg) 25 mg EVERY 12 HOURS ORAL 08/30/18 09:00 09/29/18 08:59 09/02/18 21:46 Citalopram Hydrobromide (celeXA) 20 mg DAILY ORAL 08/27/18 09:00 09/19/18 08:59 09/02/18 09:42 Clonidine HCl (Catapres tab) 0.2 mg EVERY 8 HOURS ORAL 08/30/18 22:00 09/19/18 00:00 09/02/18 21:46 Dextromethorphan/ Quinidine (Nuedexta Capsule) 1 cap Q12HR ORAL 08/26/18 21:00 09/19/18 08:59 09/02/18 21:47 Dextrose (Dextrose 50%) 25 ml Q30M PRN IV Hypoglycemia 08/26/18 12:15 09/18/18 22:44 Dextrose (Dextrose 50%) 50 ml Q30M PRN IV Hypoglycemia 08/26/18 12:15 09/18/18 22:44 Docusate Sodium (Colace) 100 mg TID ORAL 08/26/18 13:00 09/19/18 08:59 09/02/18 18:22 Donepezil HCl (Aricept) 10 mg DAILY ORAL 08/27/18 09:00 09/19/18 08:59 09/02/18 09:42 Epoetin Zaid (Epoetin Zaid-EPBX(NON ESRD)) 10,000 unit WED-WED-WED SUBQ 08/29/18 21:00 09/28/18 20:59 09/02/18 21:47 Finasteride (Proscar) 5 mg DAILY ORAL 08/27/18 09:00 09/19/18 08:59 09/02/18 09:42 Hydralazine HCl (Apresoline) 25 mg Q4H PRN ORAL bp over 160 syst 08/28/18 14:00 09/27/18 13:59 Hydralazine HCl (Apresoline) 100 mg Q8HR ORAL 08/29/18 06:00 09/28/18 05:59 09/02/18 21:46 Insulin Aspart (NovoLOG) BEFORE MEALS AND HS SUBQ 08/26/18 16:30 09/19/18 06:29 09/02/18 21:49 Isosorbide Mononitrate (Imdur) 60 mg DAILY ORAL 08/30/18 09:00 09/29/18 08:59 09/02/18 09:41 Lidocaine HCl (Xylocaine 1% 30ml) 30 ml NOW PRN INJ Radiology Procedure 09/02/18 07:45 09/05/18 07:31 Metoprolol Tartrate (Lopressor) 25 mg Q12HR ORAL 09/02/18 09:00 10/02/18 08:59 09/02/18 21:47 Morphine Sulfate (Morphine Sulfate) 1 mg Q2H PRN IVP Breakthrough Pain 09/01/18 18:00 09/08/18 17:59 Oxycodone/ Acetaminophen (Percocet 5-325) 1 tab Q6H PRN ORAL Severe Pain (Pain Scale 7-10) 09/01/18 18:00 09/08/18 17:59 09/01/18 17:58 Pantoprazole (Protonix) 40 mg BID ORAL 08/27/18 14:15 09/26/18 14:14 09/02/18 18:22 Phenytoin (Dilantin) 100 mg Q8HR ORAL 08/31/18 14:00 09/25/18 12:59 09/02/18 21:45 Piperacillin Sod/ Tazobactam Sod 3.375 gm/Sodium Chloride 110 ml @ 27.5 mls/hr Q12H IVPB 08/26/18 13:00 09/05/18 12:59 09/02/18 13:39 Pravastatin Sodium (Pravachol) 80 mg BEDTIME ORAL 08/26/18 21:00 09/19/18 20:59 09/02/18 21:45 Sodium Citrate (Bicitra) 30 ml BID ORAL 08/31/18 18:00 09/30/18 17:59 09/02/18 18:22 Tamsulosin HCl (Flomax) 0.4 mg BID ORAL 08/26/18 18:00 09/19/18 20:59 09/02/18 18:22 Vitamin B Complex/ Vit C/Folic Acid (Nephrovite) 1 tab DAILY ORAL 08/27/18 09:00 09/19/18 08:59 09/02/18 09:42 Eric Pettit MD September 02, 2018 23:11
[2018-09-03] VITALS: BP 144/65
[2018-09-03] MEDS: Piperacillin/Tazobactam 3.375 GM in NS 110 ML IVPB SCH ×2 (01:36→13:21)
--- NOTE | 2018-09-03 02:15 | Progress Note ---
DATE: 09/02/2018 CARDIOLOGY PROGRESS NOTE SUBJECTIVE: The patient is status post cystoscopy with placement of suprapubic catheter. He has hematuria. He has some abdominal pain. He denies shortness of breath. OBJECTIVE: VITAL SIGNS: Blood pressure 152/79, pulse 83, and respirations 18. NECK: Supple. LUNGS: Clear. CARDIAC: Regular. Normal S1 and S2 with a fourth heart sound. ABDOMEN: Soft. EXTREMITIES: No edema. LABORATORY DATA: White count 15 and hemoglobin 10.9. Sodium 138, potassium 3.5, bicarbonate 20, BUN 39, and creatinine 3.6. Albumin 2. IMPRESSION: 1. Acute on chronic renal failure. 2. Obstructive uropathy. 3. Status post suprapubic catheter. 4. Severe protein-calorie malnutrition. 5. Acute on chronic diastolic congestive heart failure. 6. Hypertensive heart disease. 7. Acute myocardial infarction. 8. Acute deep venous thrombosis. PLAN: 1. Monitor urine output. 2. Optimize anti-failure and antianginal. 3. Recheck troponin level.. 4. Protein supplement. 5. No anti-platelet therapy due to active bleeding from tract. 6. IVC filter placement. 7. No anticoagulation due to bleeding either. Eric Brown M.D. DR: DARREN JOB#: [id number] CC:
[2018-09-03 04:00] VITALS: BP 133/68
[2018-09-03] MEDS: Phenytoin 100mg cap ORAL SCH ×3 (05:57→22:01)
[2018-09-03] MEDS: HydrALAZINE 50mg tab ORAL SCH ×3 (05:57→22:09)
[2018-09-03] MEDS: cloNIDine 0.2mg Tab ORAL SCH ×3 (05:57→22:08)
[2018-09-03] MEDS: NovoLOG Insulin Flexpen SUBQ SCH ×4 (06:04→22:28)
--- NOTE | 2018-09-03 07:45 | NUR ---
HAND-OFF: Report given to PARAM Voss.
[2018-09-03 08:00] VITALS: BP 133/67
--- NOTE | 2018-09-03 08:06 | NUR ---
NURSE NOTES: Pt in bed awake. 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 Pt has a suprapubic cath. that was inserted 09/01 but is still bleeding. will continue to monitor and change dressing. Bed locked and in lowest position. Call light within reach. Will continue to follow plan of care.
[2018-09-03 08:08] LABS: HEMATOCRIT 23.2 % (42.0-52.0); HEMOGLOBIN 7.9 G/DL (14.2-18.0); MEAN CORPUSCULAR VOLUME 90 FL (80-99); PLATELET COUNT 251 K/UL (150-450); RED BLOOD COUNT 2.57 M/UL (4.70-6.10); RED CELL DISTRIBUTION WIDTH 14.5 % (11.6-14.8); WHITE BLOOD COUNT 13.4 K/UL (4.8-10.8)
[2018-09-03 08:21] LABS: ALANINE AMINOTRANSFERASE < 6 U/L (12-78); ALBUMIN 1.5 G/DL (3.4-5.0); ALBUMIN/GLOBULIN RATIO 0.4 (1.0-2.7); ALKALINE PHOSPHATASE 100 U/L (46-116); ANION GAP 13 mmol/L (5-15); ASPARTATE AMINO TRANSFERASE 19 U/L (15-37); BILIRUBIN,TOTAL 0.3 MG/DL (0.2-1.0); BLOOD UREA NITROGEN 41 mg/dL (7-18); CALCIUM 7.4 MG/DL (8.5-10.1); CARBON DIOXIDE 22 MMOL/L (21-32); CHLORIDE 106 MMOL/L (98-107); POTASSIUM 3.1 MMOL/L (3.5-5.1); SODIUM 141 MMOL/L (136-145)
[2018-09-03] MEDS: Docusate 100mg cap ORAL SCH ×3 (10:14→18:40)
[2018-09-03] MEDS: Aspirin Baby 81mg ORAL SCH (10:15)
[2018-09-03] MEDS: Sodium Citrate 30ml ORAL SCH (10:15)
[2018-09-03] MEDS: Citalopram Hydrobromide 10mg Tab ORAL SCH (10:15)
[2018-09-03] MEDS: Nuedexta Capsule 20/10mg ORAL SCH ×2 (10:16→22:01)
[2018-09-03] MEDS: Carvedilol 25mg Tab ORAL SCH ×2 (10:16→22:10)
[2018-09-03] MEDS: Donepezil 10mg tab ORAL SCH (10:16)
[2018-09-03] MEDS: Nephrovite tab (Rena-Vite) ORAL SCH (10:17)
[2018-09-03] MEDS: Tamsulosin 0.4mg cap ORAL SCH ×2 (10:17→22:02)
[2018-09-03] MEDS: Imdur 30mg tab ORAL SCH (10:18)
[2018-09-03] MEDS: Levodopa/Carbidopa 25/100 tab ORAL SCH ×3 (10:18→18:40)
[2018-09-03] MEDS: Metoprolol 25mg tab ORAL SCH ×2 (10:19→22:08)
--- NOTE | 2018-09-03 10:28 | NUR ---
NURSE NOTES: Informed Dr. Alejandro about pt's suprapubic catheter is bleeding. collected 150ml out of collection bag from catheter this morning. Replaced ABD bandaged because it was filled with blood applied pressure to site with (1000 ml ns bag). Pt bag for a while but kept taking it off.
--- NOTE | 2018-09-03 10:30 | Pulmonology Progress Note ---
Assessment/Plan Assessment/Plan 1. Acute renal failure. 2. UTI 3. BPH. 4. Hypertension. 5. Seizure Disorder 6. Anemia 7. Likely pulmonary edema 8. Taketsubo Cardiomyopathy 9. Dementia 10. DVT PLAN diurese as able still with some edema on cxr oxygen as needed monitor imaging and labs later this week IVC filter respiratory care follow up exam cards follow up for optimization oxygen needs reviewed uro follow up impression, plan, and exam edited and reviewed in detail care discussed with RN Subjective Allergies: Coded Allergies: NO KNOWN DRUG ALLERGIES (Unverified Allergy, Unknown, 04/11/14) Subjective events noted comfortable no distress and alert consultants noted Objective Last 24 Hour Vital Signs Date Time Temp Pulse Resp B/P (MAP) Pulse Ox O2 Delivery O2 Flow Rate FiO2 09/03/18 10:19 73 133/67 09/03/18 10:18 133/67 09/03/18 10:16 73 133/67 09/03/18 10:15 73 133/67 09/03/18 08:00 98.0 73 20 133/67 (89) 97 09/03/18 05:57 133/48 09/03/18 05:57 138/48 09/03/18 04:00 97.3 77 18 133/68 (89) 96 09/03/18 04:00 72 09/03/18 00:00 97.7 79 18 144/65 (91) 97 09/03/18 00:00 74 09/02/18 21:47 86 150/70 09/02/18 21:46 150/70 09/02/18 21:46 86 150/70 09/02/18 21:46 150/70 09/02/18 21:00 Room Air 09/02/18 20:20 95 Room Air 21 09/02/18 20:00 87 09/02/18 20:00 96.0 86 18 150/70 (96) 97 09/02/18 18:22 78 128/58 09/02/18 16:00 98.2 78 20 128/58 (81) 95 09/02/18 15:46 74 09/02/18 13:34 121/73 09/02/18 13:34 121/73 09/02/18 12:00 98.0 77 18 121/73 (89) 95 09/02/18 11:32 77 Intake and Output 09/02/18 09/03/18 19:00 07:00 Intake Total 800 ml Output Total 250 ml 750 ml Balance 550 ml -750 ml Intake Oral 800 ml Output Urine Total 250 ml 750 ml # Bowel Movements 1 1 Objective WDWN NAD clear breath sounds bilaterally without rhonchi or wheeze [id number] without MRG NABS nontender no HSM no CC mild edema nonfocal reviewed and edited Laboratory Tests 09/03/18 07:40: White Blood Count 13.4H, Red Blood Count 2.57L, Hemoglobin 7.9L, Hematocrit 23.2L, Mean Corpuscular Volume 90, Mean Corpuscular Hemoglobin 30.6, Mean Corpuscular Hemoglobin Concent 34.0, Red Cell Distribution Width 14.5, Platelet Count 251, Mean Platelet Volume 4.8L, Neutrophils (%) (Auto) , Lymphocytes (%) ( Auto) , Monocytes (%) (Auto) , Eosinophils (%) (Auto) , Basophils (%) (Auto) , Neutrophils % (Manual) [Pending], Lymphocytes % (Manual) [Pending], Platelet Estimate [Pending], Platelet Morphology [Pending], Sodium Level 141, Potassium Level 3.1L, Chloride Level 106, Carbon Dioxide Level 22, Anion Gap 13, Blood Urea Nitrogen 41H, Creatinine 4.0H, Estimat Glomerular Filtration Rate , Glucose Level 109H, Calcium Level 7.4L, Total Bilirubin 0.3, Aspartate Amino Transf (AST/SGOT) 19, Alanine Aminotransferase (ALT/SGPT) < 6L, Alkaline Phosphatase 100, Troponin I 0.106H, Total Protein 5.7L, Albumin 1.5L, Globulin 4.2, Albumin/Globulin Ratio 0.4L, Phenytoin (Dilantin) Level 7.5L Current Medications Medications (Trade) Dose Ordered Sig/Thu Route PRN Reason Start Time Stop Time Status Last Admin Dose Admin Acetaminophen (Tylenol) 650 mg Q6H PRN ORAL For Pain 08/26/18 12:30 09/18/18 12:29 Amlodipine Besylate (Norvasc) 5 mg BID ORAL 08/30/18 18:00 09/27/18 13:59 09/03/18 10:15 Aspirin (ASA) 81 mg DAILY ORAL 08/27/18 09:00 09/26/18 08:59 09/03/18 10:15 Carbidopa/Levodopa (Sinemet 25/100) 1 tab THREE TIMES A DAY ORAL 08/26/18 13:00 09/19/18 08:59 09/03/18 10:18 Carvedilol (Coreg) 25 mg EVERY 12 HOURS ORAL 08/30/18 09:00 09/29/18 08:59 09/03/18 10:16 Citalopram Hydrobromide (celeXA) 20 mg DAILY ORAL 08/27/18 09:00 09/19/18 08:59 09/03/18 10:15 Clonidine HCl (Catapres tab) 0.2 mg EVERY 8 HOURS ORAL 08/30/18 22:00 09/19/18 00:00 09/03/18 05:57 Dextromethorphan/ Quinidine (Nuedexta Capsule) 1 cap Q12HR ORAL 08/26/18 21:00 09/19/18 08:59 09/03/18 10:16 Dextrose (Dextrose 50%) 25 ml Q30M PRN IV Hypoglycemia 08/26/18 12:15 09/18/18 22:44 Dextrose (Dextrose 50%) 50 ml Q30M PRN IV Hypoglycemia 08/26/18 12:15 09/18/18 22:44 Docusate Sodium (Colace) 100 mg TID ORAL 08/26/18 13:00 09/19/18 08:59 09/03/18 10:14 Donepezil HCl (Aricept) 10 mg DAILY ORAL 08/27/18 09:00 09/19/18 08:59 09/03/18 10:16 Epoetin Zaid (Epoetin Zaid-EPBX(NON ESRD)) 10,000 unit WED-WED-WED SUBQ 08/29/18 21:00 09/28/18 20:59 09/02/18 21:47 Finasteride (Proscar) 5 mg DAILY ORAL 08/27/18 09:00 09/19/18 08:59 09/03/18 10:14 Hydralazine HCl (Apresoline) 25 mg Q4H PRN ORAL bp over 160 syst 08/28/18 14:00 09/27/18 13:59 Hydralazine HCl (Apresoline) 100 mg Q8HR ORAL 08/29/18 06:00 09/28/18 05:59 09/03/18 05:57 Insulin Aspart (NovoLOG) BEFORE MEALS AND HS SUBQ 08/26/18 16:30 09/19/18 06:29 09/03/18 06:04 Isosorbide Mononitrate (Imdur) 60 mg DAILY ORAL 08/30/18 09:00 09/29/18 08:59 09/03/18 10:18 Lidocaine HCl (Xylocaine 1% 30ml) 30 ml NOW PRN INJ Radiology Procedure 09/02/18 07:45 09/05/18 07:31 Metoprolol Tartrate (Lopressor) 25 mg Q12HR ORAL 09/02/18 09:00 10/02/18 08:59 09/03/18 10:19 Morphine Sulfate (Morphine Sulfate) 1 mg Q2H PRN IVP Breakthrough Pain 09/01/18 18:00 09/08/18 17:59 Oxycodone/ Acetaminophen (Percocet 5-325) 1 tab Q6H PRN ORAL Severe Pain (Pain Scale 7-10) 09/01/18 18:00 09/08/18 17:59 09/01/18 17:58 Pantoprazole (Protonix) 40 mg BID ORAL 08/27/18 14:15 09/26/18 14:14 09/03/18 10:15 Phenytoin (Dilantin) 100 mg Q8HR ORAL 08/31/18 14:00 09/25/18 12:59 09/03/18 05:57 Piperacillin Sod/ Tazobactam Sod 3.375 gm/Sodium Chloride 110 ml @ 27.5 mls/hr Q12H IVPB 08/26/18 13:00 09/05/18 12:59 09/03/18 01:36 Potassium Chloride (K-Dur) 30 meq DAILY ORAL 09/03/18 10:30 10/03/18 10:29 Pravastatin Sodium (Pravachol) 80 mg BEDTIME ORAL 08/26/18 21:00 09/19/18 20:59 09/02/18 21:45 Sodium Citrate (Bicitra) 30 ml BID ORAL 08/31/18 18:00 09/30/18 17:59 09/03/18 10:15 Tamsulosin HCl (Flomax) 0.4 mg BID ORAL 08/26/18 18:00 09/19/18 20:59 09/03/18 10:17 Vitamin B Complex/ Vit C/Folic Acid (Nephrovite) 1 tab DAILY ORAL 08/27/18 09:00 09/19/18 08:59 09/03/18 10:17 Hari Ogden MD Sep 03, 2018 10:30
--- NOTE | 2018-09-03 10:30 | General Progress Note ---
Assessment/Plan Problem List: (1) Acute renal insufficiency ICD Codes: N28.9 - Disorder of kidney and ureter, unspecified SNOMED: 01078784 (2) Leukocytosis ICD Codes: D72.829 - Elevated white blood cell count, unspecified SNOMED: 223878227 (3) Hematuria, gross ICD Codes: R31.0 - Gross hematuria SNOMED: 438675412 (4) Prostate hypertrophy ICD Codes: N40.0 - Benign prostatic hyperplasia without lower urinary tract symptoms SNOMED: 601648131 (5) UTI (urinary tract infection) ICD Codes: N39.0 - Urinary tract infection, site not specified SNOMED: 33697890 (6) Urethral stricture SNOMED: 10500789 (7) AMI (acute myocardial infarction) ICD Codes: I21.9 - Acute myocardial infarction, unspecified SNOMED: 58571605 Status: stable, progressing Assessment/Plan: suprapubic catheter to gravity cautious antiplt rx BP rx cannot anticoagulate with hematuria, anemia, ob + stool will order emergent ivc filter. at risk for life threatening PE. cannot anticoagulate VIt k/FFP Subjective ROS Limited/Unobtainable: No Constitutional: Reports: weakness HEENT: Reports: no symptoms Cardiovascular: Reports: no symptoms Respiratory: Reports: no symptoms Gastrointestinal/Abdominal: Reports: no symptoms Genitourinary: Reports: no symptoms Neurologic/Psychiatric: Reports: no symptoms Endocrine: Reports: no symptoms Hematologic/Lymphatic: Reports: anemia Allergies: Coded Allergies: NO KNOWN DRUG ALLERGIES (Unverified Allergy, Unknown, 04/11/14) All Systems: reviewed and negative except above Subjective s/p cysto and suprapubic catheter placement. +hematuria. no complaints. denies cp/sob labs noted. decrease h/h. no report of bleeding. Objective Last 24 Hour Vital Signs Date Time Temp Pulse Resp B/P (MAP) Pulse Ox O2 Delivery O2 Flow Rate FiO2 09/03/18 10:19 73 133/67 09/03/18 10:18 133/67 09/03/18 10:16 73 133/67 09/03/18 10:15 73 133/67 09/03/18 08:00 98.0 73 20 133/67 (89) 97 09/03/18 05:57 133/48 09/03/18 05:57 138/48 09/03/18 04:00 97.3 77 18 133/68 (89) 96 09/03/18 04:00 72 09/03/18 00:00 97.7 79 18 144/65 (91) 97 09/03/18 00:00 74 09/02/18 21:47 86 150/70 09/02/18 21:46 150/70 09/02/18 21:46 86 150/70 09/02/18 21:46 150/70 09/02/18 21:00 Room Air 09/02/18 20:20 95 Room Air 21 09/02/18 20:00 87 09/02/18 20:00 96.0 86 18 150/70 (96) 97 09/02/18 18:22 78 128/58 09/02/18 16:00 98.2 78 20 128/58 (81) 95 09/02/18 15:46 74 09/02/18 13:34 121/73 09/02/18 13:34 121/73 09/02/18 12:00 98.0 77 18 121/73 (89) 95 09/02/18 11:32 77 Intake and Output 09/02/18 09/03/18 18:59 06:59 Intake Total 800 ml Output Total 250 ml 750 ml Balance 550 ml -750 ml Intake Oral 800 ml Output Urine Total 250 ml 750 ml # Bowel Movements 1 1 Laboratory Tests 09/03/18 07:40: White Blood Count 13.4H, Red Blood Count 2.57L, Hemoglobin 7.9L, Hematocrit 23.2L, Mean Corpuscular Volume 90, Mean Corpuscular Hemoglobin 30.6, Mean Corpuscular Hemoglobin Concent 34.0, Red Cell Distribution Width 14.5, Platelet Count 251, Mean Platelet Volume 4.8L, Neutrophils (%) (Auto) , Lymphocytes (%) ( Auto) , Monocytes (%) (Auto) , Eosinophils (%) (Auto) , Basophils (%) (Auto) , Neutrophils % (Manual) [Pending], Lymphocytes % (Manual) [Pending], Platelet Estimate [Pending], Platelet Morphology [Pending], Sodium Level 141, Potassium Level 3.1L, Chloride Level 106, Carbon Dioxide Level 22, Anion Gap 13, Blood Urea Nitrogen 41H, Creatinine 4.0H, Estimat Glomerular Filtration Rate , Glucose Level 109H, Calcium Level 7.4L, Total Bilirubin 0.3, Aspartate Amino Transf (AST/SGOT) 19, Alanine Aminotransferase (ALT/SGPT) < 6L, Alkaline Phosphatase 100, Troponin I 0.106H, Total Protein 5.7L, Albumin 1.5L, Globulin 4.2, Albumin/Globulin Ratio 0.4L, Phenytoin (Dilantin) Level 7.5L Height (Feet): 5 Height (Inches): 6.00 Weight (Pounds): 172 Objective General Appearance: WD/WN, alert Neck: supple Cardiovascular: normal rate, regular rhythm Respiratory/Chest: chest wall non-tender, lungs - rhonchi and wheezes Abdomen: normal bowel sounds, non tender, soft, no organomegaly Edema: 1+ edema Anthony Alejandro MD Sep 03, 2018 10:30
--- NOTE | 2018-09-03 11:45 | NUR ---
Pt refused medication he ate only 4 spoonfuls and said he didn't need insulin. B/s is 105
[2018-09-03 12:00] VITALS: BP 151/69
--- NOTE | 2018-09-03 14:07 | Nephrology Progress Note ---
Assessment/Plan Problem List: (1) Renal failure (ARF), acute on chronic (2) Prostate hypertrophy (3) Urethral stricture (4) UTI (urinary tract infection) (5) Bilateral hydronephrosis (6) Elevated troponin I level (7) Hypertensive kidney disease (8) Cardiomyopathy Assessment Acute on chronic renal failure Likely Diabetic Nephrosclerosis urinary retention on bladder scan Anemia of CKD Proteinuria / HypoAlbuminemia likely due to DM BPH HTN Parkinsons bilateral hydro elevated troponin Plan had cysto and supra pubic 09/01 24 h urine Cr Cl and protein recheck labs in am- transfuse as needed gastric support optimize cardiac status DC cogentin due to retention adjust BP meds Po Bicitra Kidney TONY noted bilateral hydro Uro intervention adjust BP meds Anemia potts check Uric Acid Urine studies up dose flomax per orders check dialntin level Left ventricular lazo in the basal regions are contracted normally however the apical segments are akinetic, 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 Mild left ventricular enlargement. Subjective ROS Limited/Unobtainable: No Constitutional: Reports: malaise Objective Objective Last 24 Hour Vital Signs Date Time Temp Pulse Resp B/P (MAP) Pulse Ox O2 Delivery O2 Flow Rate FiO2 09/03/18 13:28 128/65 09/03/18 13:23 128/65 09/03/18 10:19 73 133/67 09/03/18 10:18 133/67 09/03/18 10:16 73 133/67 09/03/18 10:15 73 133/67 09/03/18 08:00 98.0 73 20 133/67 (89) 97 09/03/18 05:57 133/48 09/03/18 05:57 138/48 09/03/18 04:00 97.3 77 18 133/68 (89) 96 09/03/18 04:00 72 09/03/18 00:00 97.7 79 18 144/65 (91) 97 09/03/18 00:00 74 09/02/18 21:47 86 150/70 09/02/18 21:46 150/70 09/02/18 21:46 86 150/70 09/02/18 21:46 150/70 09/02/18 21:00 Room Air 09/02/18 20:20 95 Room Air 21 09/02/18 20:00 87 09/02/18 20:00 96.0 86 18 150/70 (96) 97 09/02/18 18:22 78 128/58 09/02/18 16:00 98.2 78 20 128/58 (81) 95 09/02/18 15:46 74 Intake and Output 09/02/18 09/03/18 19:00 07:00 Intake Total 800 ml Output Total 250 ml 750 ml Balance 550 ml -750 ml Intake Oral 800 ml Output Urine Total 250 ml 750 ml # Bowel Movements 1 1 Laboratory Tests 09/03/18 07:40: White Blood Count 13.4H, Red Blood Count 2.57L, Hemoglobin 7.9L, Hematocrit 23.2L, Mean Corpuscular Volume 90, Mean Corpuscular Hemoglobin 30.6, Mean Corpuscular Hemoglobin Concent 34.0, Red Cell Distribution Width 14.5, Platelet Count 251, Mean Platelet Volume 4.8L, Neutrophils (%) (Auto) , Lymphocytes (%) ( Auto) , Monocytes (%) (Auto) , Eosinophils (%) (Auto) , Basophils (%) (Auto) , Differential Total Cells Counted 100, Neutrophils % (Manual) 79H, Lymphocytes % (Manual) 16L, Monocytes % (Manual) 4, Eosinophils % (Manual) 1, Basophils % ( Manual) 0, Band Neutrophils 0, Platelet Estimate Adequate, Platelet Morphology Normal, Hypochromasia 1+, Anisocytosis 1+, Sodium Level 141, Potassium Level 3.1L, Chloride Level 106, Carbon Dioxide Level 22, Anion Gap 13, Blood Urea Nitrogen 41H, Creatinine 4.0H, Estimat Glomerular Filtration Rate , Glucose Level 109H, Calcium Level 7.4L, Total Bilirubin 0.3, Aspartate Amino Transf (AST /SGOT) 19, Alanine Aminotransferase (ALT/SGPT) < 6L, Alkaline Phosphatase 100, Troponin I 0.106H, Total Protein 5.7L, Albumin 1.5L, Globulin 4.2, Albumin/ Globulin Ratio 0.4L, Phenytoin (Dilantin) Level 7.5L Height (Feet): 5 Height (Inches): 6.00 Weight (Pounds): 172 General Appearance: no apparent distress Cardiovascular: normal rate Respiratory/Chest: decreased breath sounds Abdomen: distended Objective no change Sukhdeep Rodriguez MD Sep 03, 2018 14:07
[2018-09-03] MEDS ORDERED: NS 275ml ONE (14:44)
[2018-09-03 16:00] VITALS: BP 120/50
[2018-09-03 16:33] LABS: HEMATOCRIT 20.9 % (42.0-52.0); MEAN CORPUSCULAR VOLUME 90 FL (80-99); PLATELET COUNT 236 K/UL (150-450); RED BLOOD COUNT 2.33 M/UL (4.70-6.10); RED CELL DISTRIBUTION WIDTH 14.4 % (11.6-14.8); WHITE BLOOD COUNT 11.2 K/UL (4.8-10.8)
--- NOTE | 2018-09-03 19:50 | NUR ---
NURSE NOTES: Received pt from PARAM Voss. Pt is awake and resting in bed in no acute distress. Tolerating room air. Iv site intact and patent. Suprapubic catheter is intact. Dressing on suprapubic region is bloody. Endorsed "Dr. Gruber was informed that site is bleeding and that ABD bandages were being changed PRN. Dr. Vila or Dr. Gruber will come in an assess pt." SCD's are on patient. Endorsed to hang 1 bag of platelets, will follow up with blood bank. Bed in lowest position, called, and call light within reach. Will continue with plan of care. Addendum: 09/04/18 at 0729 by ОЛЬГА GRAYSON RN NURSE NOTES: Correction: Endorsed to hang 1 bag of fresh frozen plasma."
[2018-09-03 20:00] VITALS: BP 120/60
--- NOTE | 2018-09-03 20:50 | NUR ---
NURSE NOTES: Received fresh frozen plasma from blood bank. Verified correct bag with another nurse. Took pt vitals pre bag administration. Hung bag at 2044. Will continue to monitor pt.
--- NOTE | 2018-09-03 20:52 | NUR ---
NURSE NOTES: called Dr. Doe to inform him about pt continuously bleeding site. Dr. Gruber called back to get pt status. Doctor was informed that site is bleeding and that ABD bandages were being changed PRN. He will come in an assess pt. No new orders given.
--- NOTE | 2018-09-03 20:55 | NUR ---
HAND-OFF: Report given to Avel VIRGEN. Pt in stable condition. RN will monitor suprapubic bleeding site and will change bandange PRN. Also he will continue to collect 24hr urine specimen until tomorrow at 1500.
--- NOTE | 2018-09-03 21:00 | NUR ---
NURSE NOTES: Pt is tolerating infusion. Asymptomatic VS: 113/54, 97.7 F, 18rpm, 60 bpm, 98%. Will continue infusion. Addendum: 09/04/18 at 0827 by ОЛЬГА GRAYSON RN NURSE NOTES: 15 min VS check: 123/64, 18 respirations, 64 bpm, 97%, 97.1F, 0/10 pain scale
--- NOTE | 2018-09-03 22:45 | NUR ---
NURSE NOTES: Fresh frozen plasma infusion complete. Pt asymptomatic. VS: 113/54, 60 bpm, 97.7F, 98%, 18 respirations, 0/10 pain scale.
--- NOTE | 2018-09-03 22:45 | Progress Note ---
DATE: 09/03/2018 CARDIOLOGY PROGRESS NOTE SUBJECTIVE: The patient has suprapubic catheter. Renal ultrasound revealed bilateral hydro. Blood pressure parameters have improved. Echocardiogram revealed reduced ejection fraction consistent with recent myocardial infarction. OBJECTIVE: VITAL SIGNS: Blood pressure 128/65, pulse 64, respiratory rate 18, and afebrile. LUNGS: Few rales. CARDIAC: Regular rhythm and rate. Normal S1 and S2 with a fourth heart sound and a 1/6 systolic murmur at apex. ABDOMEN: Soft. EXTREMITIES: With trace edema. LABORATORY DATA: White count 11 and hemoglobin 7. Potassium 3.1, BUN 41, creatinine 4, troponin 0.106, and albumin 1.5. IMPRESSION: 1. Acute myocardial infarction. 2. Severe anemia. 3. Acute on chronic renal failure. 4. DVT, pending IVC filter. 5. Acute on chronic diastolic congestive heart failure. PLAN: 1. Titrating anti-failure and antianginal regimen - includes beta jinny. 2. Fluid mobilization as able with impaired renal parameters. 3. Monitor cardiorenal function closely. 4. Transfuse packed red blood cells. 5. Agree with discontinuation of Cogentin with urinary retention. 6. IVC filter to be placed. 7. Replace potassium; check magnesium. 8. Check coagulation parameters. Eric Brown M.D. DR: MICH JOB#: [id number] CC: ROCHELLE
[2018-09-04] VITALS: BP 109/58
[2018-09-04] MEDS: Piperacillin/Tazobactam 3.375 GM in NS 110 ML IVPB SCH ×2 (01:24→12:38)
[2018-09-04 04:00] VITALS: BP 120/60
[2018-09-04] MEDS: NovoLOG Insulin Flexpen SUBQ SCH ×4 (06:35→20:29)
[2018-09-04] MEDS: Phenytoin 100mg cap ORAL SCH ×3 (06:38→23:08)
[2018-09-04] MEDS: cloNIDine 0.2mg Tab ORAL SCH ×3 (06:40→23:09)
[2018-09-04] MEDS: HydrALAZINE 50mg tab ORAL SCH ×3 (06:40→23:09)
--- NOTE | 2018-09-04 07:50 | NUR ---
HAND-OFF: Report given to PARAM Medel. Endorsed plan of care.
[2018-09-04 08:00] VITALS: BP 144/81
--- NOTE | 2018-09-04 08:00 | NUR ---
NURSE NOTES: Pt asleep in bed, breathing easily on room air, awoke to soft voice denies SOB and denies pain at this time. Pt had suprapubic cath with bloody abd pad covering and minimal drainage into collection bag, dressings changed. Suprapubic cath irrigated with sterile saline, dislodging several clots. Clots irrigated out of the drainage tube too. Blood tinged urine is now flowing freely. Vital signs stable, with SR @ 87 on monitor. IV access left a/c, with NS running at TKO. Bed left in low position, side rails up x 2 and call light left near pt's hand.
[2018-09-04 08:44] LABS: HEMATOCRIT 21.2 % (42.0-52.0); HEMOGLOBIN 7.1 G/DL (14.2-18.0); MEAN CORPUSCULAR VOLUME 91 FL (80-99); PLATELET COUNT 251 K/UL (150-450); RED BLOOD COUNT 2.33 M/UL (4.70-6.10); RED CELL DISTRIBUTION WIDTH 15.7 % (11.6-14.8); WHITE BLOOD COUNT 13.5 K/UL (4.8-10.8)
[2018-09-04 08:52] LABS: INR 3.4 (0.9-1.1)
[2018-09-04 09:08] LABS: ALANINE AMINOTRANSFERASE < 6 U/L (12-78); ALBUMIN 1.6 G/DL (3.4-5.0); ALBUMIN/GLOBULIN RATIO 0.4 (1.0-2.7); ALKALINE PHOSPHATASE 115 U/L (46-116); ANION GAP 16 mmol/L (5-15); ASPARTATE AMINO TRANSFERASE 22 U/L (15-37); BILIRUBIN,TOTAL 0.4 MG/DL (0.2-1.0); BLOOD UREA NITROGEN 42 mg/dL (7-18); CALCIUM 7.1 MG/DL (8.5-10.1); CARBON DIOXIDE 20 MMOL/L (21-32); CHLORIDE 100 MMOL/L (98-107); CREATININE 3.8 MG/DL (0.55-1.30); POTASSIUM 3.5 MMOL/L (3.5-5.1); SODIUM 136 MMOL/L (136-145)
[2018-09-04 09:11] LABS: PHOSPHORUS 5.3 MG/DL (2.5-4.9)
--- NOTE | 2018-09-04 09:13 | Pulmonology Progress Note ---
Assessment/Plan Assessment/Plan 1. Acute renal failure. 2. UTI 3. BPH. 4. Hypertension. 5. Seizure Disorder 6. Anemia 7. Likely pulmonary edema 8. Taketsubo Cardiomyopathy 9. Dementia 10. DVT PLAN diurese and monitor labs still with some edema on cxr follow up oxygen as needed monitor imaging and labs later this week IVC filter when able respiratory care follow up exam cards follow up for optimization oxygen needs reviewed uro follow up impression, plan, and exam edited and reviewed in detail care discussed with RN Subjective Allergies: Coded Allergies: NO KNOWN DRUG ALLERGIES (Unverified Allergy, Unknown, 04/11/14) Subjective events noted comfortable no distress care reviewed Objective Last 24 Hour Vital Signs Date Time Temp Pulse Resp B/P (MAP) Pulse Ox O2 Delivery O2 Flow Rate FiO2 09/04/18 06:40 139/72 09/04/18 06:40 139/72 09/04/18 04:00 57 09/04/18 04:00 97.3 57 17 120/60 (80) 95 09/04/18 00:00 56 09/04/18 00:00 97.4 56 18 109/58 (75) 97 09/03/18 22:10 63 127/67 09/03/18 22:09 127/67 09/03/18 22:08 61 127/67 09/03/18 22:08 127/67 09/03/18 21:00 Room Air 09/03/18 20:00 65 09/03/18 20:00 97.3 65 17 120/60 (80) 95 09/03/18 16:00 59 09/03/18 16:00 97.9 66 20 120/50 (73) 97 09/03/18 13:28 128/65 09/03/18 13:23 128/65 09/03/18 12:00 97.4 73 18 151/69 (96) 97 09/03/18 12:00 64 09/03/18 10:19 73 133/67 09/03/18 10:18 133/67 09/03/18 10:16 73 133/67 09/03/18 10:15 73 133/67 Intake and Output 09/03/18 09/04/18 18:59 06:59 Intake Total 360 ml 150 ml Output Total 100 ml Balance 260 ml 150 ml Intake Oral 360 ml 150 ml Output Urine Total 100 ml # Bowel Movements 1 2 Objective WDWN NAD clear breath sounds bilaterally without rhonchi or wheeze [id number] without MRG NABS nontender no HSM no CC mild edema nonfocal reviewed and edited Laboratory Tests 09/03/18 16:10: White Blood Count 11.2H, Red Blood Count 2.33L, Hemoglobin 7.0L, Hematocrit 20.9L, Mean Corpuscular Volume 90, Mean Corpuscular Hemoglobin 30.0, Mean Corpuscular Hemoglobin Concent 33.5, Red Cell Distribution Width 14.4, Platelet Count 236, Mean Platelet Volume 5.0L, Neutrophils (%) (Auto) , Lymphocytes (%) ( Auto) , Monocytes (%) (Auto) , Eosinophils (%) (Auto) , Basophils (%) (Auto) , Differential Total Cells Counted 100, Neutrophils % (Manual) 76H, Lymphocytes % (Manual) 13L, Monocytes % (Manual) 4, Eosinophils % (Manual) 7H, Basophils % ( Manual) 0, Band Neutrophils 0, Platelet Estimate Adequate, Platelet Morphology Normal, Hypochromasia 1+, Anisocytosis 1+ 09/04/18 05:35: Stool Occult Blood [Pending] 09/04/18 08:19: White Blood Count 13.5H, Red Blood Count 2.33L, Hemoglobin 7.1L, Hematocrit 21.2L, Mean Corpuscular Volume 91, Mean Corpuscular Hemoglobin 30.5, Mean Corpuscular Hemoglobin Concent 33.6, Red Cell Distribution Width 15.7H, Platelet Count 251, Mean Platelet Volume 5.3L, Neutrophils (%) (Auto) , Lymphocytes (%) (Auto) , Monocytes (%) (Auto) , Eosinophils (%) (Auto) , Basophils (%) (Auto) , Neutrophils % (Manual) [Pending], Lymphocytes % (Manual) [Pending], Platelet Estimate [Pending], Platelet Morphology [Pending], Prothrombin Time 33.8H, Prothromb Time International Ratio 3.4H, Sodium Level 136, Potassium Level 3.5, Chloride Level 100, Carbon Dioxide Level 20L, Anion Gap 16H, Blood Urea Nitrogen 42H, Creatinine 3.8H, Estimat Glomerular Filtration Rate , Glucose Level 137H, Uric Acid 7.8H, Calcium Level 7.1L, Phosphorus Level 5.3H, Magnesium Level 1.6L, Total Bilirubin 0.4, Aspartate Amino Transf (AST/SGOT) 22, Alanine Aminotransferase (ALT/SGPT) < 6L, Alkaline Phosphatase 115, Pro-B-Type Natriuretic Peptide [Pending], Total Protein 5.9L, Albumin 1.6L, Globulin 4.3, Albumin/Globulin Ratio 0.4L Current Medications Medications (Trade) Dose Ordered Sig/Thu Route PRN Reason Start Time Stop Time Status Last Admin Dose Admin Acetaminophen (Tylenol) 650 mg Q6H PRN ORAL For Pain 08/26/18 12:30 09/18/18 12:29 Amlodipine Besylate (Norvasc) 5 mg BID ORAL 08/30/18 18:00 09/27/18 13:59 09/03/18 10:15 Aspirin (ASA) 81 mg DAILY ORAL 08/27/18 09:00 09/26/18 08:59 09/03/18 10:15 Carbidopa/Levodopa (Sinemet 25/100) 1 tab THREE TIMES A DAY ORAL 08/26/18 13:00 09/19/18 08:59 09/03/18 18:40 Carvedilol (Coreg) 25 mg EVERY 12 HOURS ORAL 08/30/18 09:00 09/29/18 08:59 09/03/18 22:10 Citalopram Hydrobromide (celeXA) 20 mg DAILY ORAL 08/27/18 09:00 09/19/18 08:59 09/03/18 10:15 Clonidine HCl (Catapres tab) 0.2 mg EVERY 8 HOURS ORAL 08/30/18 22:00 09/19/18 00:00 09/04/18 06:40 Dextromethorphan/ Quinidine (Nuedexta Capsule) 1 cap Q12HR ORAL 08/26/18 21:00 09/19/18 08:59 09/03/18 22:01 Dextrose (Dextrose 50%) 25 ml Q30M PRN IV Hypoglycemia 08/26/18 12:15 09/18/18 22:44 Dextrose (Dextrose 50%) 50 ml Q30M PRN IV Hypoglycemia 08/26/18 12:15 09/18/18 22:44 Docusate Sodium (Colace) 100 mg TID ORAL 08/26/18 13:00 09/19/18 08:59 09/03/18 18:40 Donepezil HCl (Aricept) 10 mg DAILY ORAL 08/27/18 09:00 09/19/18 08:59 09/03/18 10:16 Epoetin Zaid (Epoetin Zaid-EPBX(NON ESRD)) 10,000 unit WED-WED-WED SUBQ 08/29/18 21:00 09/28/18 20:59 09/02/18 21:47 Finasteride (Proscar) 5 mg DAILY ORAL 08/27/18 09:00 09/19/18 08:59 09/03/18 10:14 Hydralazine HCl (Apresoline) 25 mg Q4H PRN ORAL bp over 160 syst 08/28/18 14:00 09/27/18 13:59 Hydralazine HCl (Apresoline) 100 mg Q8HR ORAL 08/29/18 06:00 09/28/18 05:59 09/04/18 06:40 Insulin Aspart (NovoLOG) BEFORE MEALS AND HS SUBQ 08/26/18 16:30 09/19/18 06:29 09/04/18 06:35 Isosorbide Mononitrate (Imdur) 60 mg DAILY ORAL 08/30/18 09:00 09/29/18 08:59 09/03/18 10:18 Lidocaine HCl (Xylocaine 1% 30ml) 30 ml NOW PRN INJ Radiology Procedure 09/02/18 07:45 09/05/18 07:31 Metoprolol Tartrate (Lopressor) 25 mg Q12HR ORAL 09/02/18 09:00 10/02/18 08:59 09/03/18 22:08 Morphine Sulfate (Morphine Sulfate) 1 mg Q2H PRN IVP Breakthrough Pain 09/01/18 18:00 09/08/18 17:59 Oxycodone/ Acetaminophen (Percocet 5-325) 1 tab Q6H PRN ORAL Severe Pain (Pain Scale 7-10) 09/01/18 18:00 09/08/18 17:59 09/01/18 17:58 Pantoprazole (Protonix) 40 mg BID ORAL 08/27/18 14:15 09/26/18 14:14 09/03/18 18:40 Phenytoin (Dilantin) 100 mg Q8HR ORAL 08/31/18 14:00 09/25/18 12:59 09/04/18 06:38 Piperacillin Sod/ Tazobactam Sod 3.375 gm/Sodium Chloride 110 ml @ 27.5 mls/hr Q12H IVPB 08/26/18 13:00 09/05/18 12:59 09/04/18 01:24 Potassium Chloride (K-Dur) 30 meq DAILY ORAL 09/03/18 10:30 10/03/18 10:29 09/03/18 12:52 Pravastatin Sodium (Pravachol) 80 mg BEDTIME ORAL 08/26/18 21:00 09/19/18 20:59 09/03/18 22:09 Tamsulosin HCl (Flomax) 0.4 mg QHS ORAL 09/03/18 21:00 09/19/18 20:59 09/03/18 22:02 Vitamin B Complex/ Vit C/Folic Acid (Nephrovite) 1 tab DAILY ORAL 08/27/18 09:00 09/19/18 08:59 09/03/18 10:17 Hari Ogden MD Sep 04, 2018 09:13
[2018-09-04] MEDS: Nuedexta Capsule 20/10mg ORAL SCH ×2 (09:52→20:32)
[2018-09-04] MEDS: Citalopram Hydrobromide 10mg Tab ORAL SCH (09:53)
[2018-09-04] MEDS: Aspirin Baby 81mg ORAL SCH (09:53)
[2018-09-04] MEDS: Levodopa/Carbidopa 25/100 tab ORAL SCH ×3 (09:54→17:41)
[2018-09-04] MEDS: Nephrovite tab (Rena-Vite) ORAL SCH (09:54)
[2018-09-04] MEDS: Donepezil 10mg tab ORAL SCH (09:54)
[2018-09-04] MEDS: Imdur 30mg tab ORAL SCH (09:55)
[2018-09-04] MEDS: Carvedilol 25mg Tab ORAL SCH ×2 (09:56→20:32)
[2018-09-04] MEDS: Docusate 100mg cap ORAL SCH ×3 (09:56→17:40)
[2018-09-04] MEDS: Metoprolol 25mg tab ORAL SCH ×2 (10:04→20:32)
[2018-09-04] MEDS ORDERED: NS 275ml ONE (10:09)
[2018-09-04] MEDS ORDERED: Tubing IV Secondary IV ONE (10:09)
[2018-09-04] MEDS ORDERED: Tubing IV Blood Pump IV ONE (10:09)
--- NOTE | 2018-09-04 11:37 | General Progress Note ---
Assessment/Plan Problem List: (1) Acute renal insufficiency ICD Codes: N28.9 - Disorder of kidney and ureter, unspecified SNOMED: 19515293 (2) Leukocytosis ICD Codes: D72.829 - Elevated white blood cell count, unspecified SNOMED: 711928186 (3) Hematuria, gross ICD Codes: R31.0 - Gross hematuria SNOMED: 415944108 (4) Prostate hypertrophy ICD Codes: N40.0 - Benign prostatic hyperplasia without lower urinary tract symptoms SNOMED: 268627389 (5) UTI (urinary tract infection) ICD Codes: N39.0 - Urinary tract infection, site not specified SNOMED: 86454290 (6) Urethral stricture SNOMED: 94850507 (7) AMI (acute myocardial infarction) ICD Codes: I21.9 - Acute myocardial infarction, unspecified SNOMED: 48738035 Status: stable, progressing Assessment/Plan: suprapubic catheter to gravity cautious antiplt rx BP rx cannot anticoagulate with hematuria, anemia, ob + stool will order emergent ivc filter. at risk for life threatening PE. cannot anticoagulate VIt k/FFP as needed transfuse as needed Subjective ROS Limited/Unobtainable: No Constitutional: Reports: malaise, weakness HEENT: Reports: no symptoms Cardiovascular: Reports: no symptoms Respiratory: Reports: no symptoms Gastrointestinal/Abdominal: Reports: no symptoms Genitourinary: Reports: no symptoms Neurologic/Psychiatric: Reports: no symptoms Endocrine: Reports: no symptoms Hematologic/Lymphatic: Reports: anemia Allergies: Coded Allergies: NO KNOWN DRUG ALLERGIES (Unverified Allergy, Unknown, 04/11/14) All Systems: reviewed and negative except above Subjective no complaints. no cp/sob. renal fxn slightly better. no fevers. labs reviewed Objective Last 24 Hour Vital Signs Date Time Temp Pulse Resp B/P (MAP) Pulse Ox O2 Delivery O2 Flow Rate FiO2 09/04/18 10:04 72 139/72 09/04/18 09:56 72 139/72 09/04/18 09:55 139/72 09/04/18 09:52 67 139/72 09/04/18 06:40 139/72 09/04/18 06:40 139/72 09/04/18 04:00 57 09/04/18 04:00 97.3 57 17 120/60 (80) 95 09/04/18 00:00 56 09/04/18 00:00 97.4 56 18 109/58 (75) 97 09/03/18 22:10 63 127/67 09/03/18 22:09 127/67 09/03/18 22:08 61 127/67 09/03/18 22:08 127/67 09/03/18 21:00 Room Air 09/03/18 20:00 65 09/03/18 20:00 97.3 65 17 120/60 (80) 95 09/03/18 16:00 59 09/03/18 16:00 97.9 66 20 120/50 (73) 97 09/03/18 13:28 128/65 09/03/18 13:23 128/65 09/03/18 12:00 97.4 73 18 151/69 (96) 97 09/03/18 12:00 64 Intake and Output 09/03/18 09/04/18 18:59 06:59 Intake Total 360 ml 150 ml Output Total 100 ml Balance 260 ml 150 ml Intake Oral 360 ml 150 ml Output Urine Total 100 ml # Bowel Movements 1 2 Laboratory Tests 09/03/18 16:10: White Blood Count 11.2H, Red Blood Count 2.33L, Hemoglobin 7.0L, Hematocrit 20.9L, Mean Corpuscular Volume 90, Mean Corpuscular Hemoglobin 30.0, Mean Corpuscular Hemoglobin Concent 33.5, Red Cell Distribution Width 14.4, Platelet Count 236, Mean Platelet Volume 5.0L, Neutrophils (%) (Auto) , Lymphocytes (%) ( Auto) , Monocytes (%) (Auto) , Eosinophils (%) (Auto) , Basophils (%) (Auto) , Differential Total Cells Counted 100, Neutrophils % (Manual) 76H, Lymphocytes % (Manual) 13L, Monocytes % (Manual) 4, Eosinophils % (Manual) 7H, Basophils % ( Manual) 0, Band Neutrophils 0, Platelet Estimate Adequate, Platelet Morphology Normal, Hypochromasia 1+, Anisocytosis 1+ 09/04/18 05:35: Stool Occult Blood Positive 09/04/18 08:19: White Blood Count 13.5H, Red Blood Count 2.33L, Hemoglobin 7.1L, Hematocrit 21.2L, Mean Corpuscular Volume 91, Mean Corpuscular Hemoglobin 30.5, Mean Corpuscular Hemoglobin Concent 33.6, Red Cell Distribution Width 15.7H, Platelet Count 251, Mean Platelet Volume 5.3L, Neutrophils (%) (Auto) , Lymphocytes (%) (Auto) , Monocytes (%) (Auto) , Eosinophils (%) (Auto) , Basophils (%) (Auto) , Differential Total Cells Counted 100, Neutrophils % ( Manual) 76H, Lymphocytes % (Manual) 10L, Monocytes % (Manual) 8, Eosinophils % ( Manual) 6H, Basophils % (Manual) 0, Band Neutrophils 0, Platelet Estimate Adequate, Platelet Morphology Normal, Anisocytosis 1+, Polychromasia 1+, Prothrombin Time 33.8H, Prothromb Time International Ratio 3.4H, Sodium Level 136, Potassium Level 3.5, Chloride Level 100, Carbon Dioxide Level 20L, Anion Gap 16H, Blood Urea Nitrogen 42H, Creatinine 3.8H, Estimat Glomerular Filtration Rate , Glucose Level 137H, Uric Acid 7.8H, Calcium Level 7.1L, Phosphorus Level 5.3H, Magnesium Level 1.6L, Total Bilirubin 0.4, Aspartate Amino Transf (AST/SGOT) 22, Alanine Aminotransferase (ALT/SGPT) < 6L, Alkaline Phosphatase 115, Pro-B-Type Natriuretic Peptide > 63614X, Total Protein 5.9L, Albumin 1.6L, Globulin 4.3, Albumin/Globulin Ratio 0.4L Height (Feet): 5 Height (Inches): 6.00 Weight (Pounds): 172 Objective General Appearance: WD/WN, alert Neck: supple Cardiovascular: normal rate, regular rhythm Respiratory/Chest: chest wall non-tender, lungs - rhonchi and wheezes Abdomen: normal bowel sounds, non tender, soft, no organomegaly Edema: 1+ edema Anthony Alejandro MD Sep 04, 2018 11:37
[2018-09-04] MEDS ORDERED: Phytonadione 10 mg/mL 1ml amp SUBQ SCH ×2 (11:43→11:45)
[2018-09-04 12:00] VITALS: BP 147/60
--- NOTE | 2018-09-04 14:08 | Nephrology Progress Note ---
Assessment/Plan Problem List: (1) Renal failure (ARF), acute on chronic (2) Prostate hypertrophy (3) Bilateral hydronephrosis (4) Urethral stricture (5) UTI (urinary tract infection) (6) Elevated troponin I level (7) Cardiomyopathy (8) Hypertensive kidney disease Assessment Acute on chronic renal failure Likely Diabetic Nephrosclerosis urinary retention on bladder scan Anemia of CKD Proteinuria / HypoAlbuminemia likely due to DM BPH HTN Parkinsons bilateral hydro elevated troponin Plan worsening anemia - bleeding via suprapubic cath had cysto and supra pubic 09/01 24 h urine Cr Cl and protein Transfuse recheck labs in am- transfuse as needed gastric support optimize cardiac status DC cogentin due to retention adjust BP meds Po Bicitra Kidney TONY noted bilateral hydro Uro intervention adjust BP meds Anemia potts check Uric Acid Urine studies up dose flomax per orders check dialntin level Left ventricular lazo in the basal regions are contracted normally however the apical segments are akinetic, 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 Mild left ventricular enlargement. Subjective ROS Limited/Unobtainable: No Constitutional: Reports: malaise Objective Objective Last 24 Hour Vital Signs Date Time Temp Pulse Resp B/P (MAP) Pulse Ox O2 Delivery O2 Flow Rate FiO2 09/04/18 13:17 139/72 09/04/18 13:16 139/72 09/04/18 10:04 72 139/72 09/04/18 09:56 72 139/72 09/04/18 09:55 139/72 09/04/18 09:52 67 139/72 09/04/18 06:40 139/72 09/04/18 06:40 139/72 09/04/18 04:00 57 09/04/18 04:00 97.3 57 17 120/60 (80) 95 09/04/18 00:00 56 09/04/18 00:00 97.4 56 18 109/58 (75) 97 09/03/18 22:10 63 127/67 09/03/18 22:09 127/67 09/03/18 22:08 61 127/67 09/03/18 22:08 127/67 09/03/18 21:00 Room Air 09/03/18 20:00 65 6/1/19 20:00 97.3 65 17 120/60 (80) 95 09/03/18 16:00 59 09/03/18 16:00 97.9 66 20 120/50 (73) 97 Intake and Output 09/03/18 09/04/18 18:59 06:59 Intake Total 360 ml 150 ml Output Total 100 ml Balance 260 ml 150 ml Intake Oral 360 ml 150 ml Output Urine Total 100 ml # Bowel Movements 1 2 Laboratory Tests 09/03/18 16:10: White Blood Count 11.2H, Red Blood Count 2.33L, Hemoglobin 7.0L, Hematocrit 20.9L, Mean Corpuscular Volume 90, Mean Corpuscular Hemoglobin 30.0, Mean Corpuscular Hemoglobin Concent 33.5, Red Cell Distribution Width 14.4, Platelet Count 236, Mean Platelet Volume 5.0L, Neutrophils (%) (Auto) , Lymphocytes (%) ( Auto) , Monocytes (%) (Auto) , Eosinophils (%) (Auto) , Basophils (%) (Auto) , Differential Total Cells Counted 100, Neutrophils % (Manual) 76H, Lymphocytes % (Manual) 13L, Monocytes % (Manual) 4, Eosinophils % (Manual) 7H, Basophils % ( Manual) 0, Band Neutrophils 0, Platelet Estimate Adequate, Platelet Morphology Normal, Hypochromasia 1+, Anisocytosis 1+ 09/04/18 05:35: Stool Occult Blood Positive 09/04/18 08:19: White Blood Count 13.5H, Red Blood Count 2.33L, Hemoglobin 7.1L, Hematocrit 21.2L, Mean Corpuscular Volume 91, Mean Corpuscular Hemoglobin 30.5, Mean Corpuscular Hemoglobin Concent 33.6, Red Cell Distribution Width 15.7H, Platelet Count 251, Mean Platelet Volume 5.3L, Neutrophils (%) (Auto) , Lymphocytes (%) (Auto) , Monocytes (%) (Auto) , Eosinophils (%) (Auto) , Basophils (%) (Auto) , Differential Total Cells Counted 100, Neutrophils % ( Manual) 76H, Lymphocytes % (Manual) 10L, Monocytes % (Manual) 8, Eosinophils % ( Manual) 6H, Basophils % (Manual) 0, Band Neutrophils 0, Platelet Estimate Adequate, Platelet Morphology Normal, Anisocytosis 1+, Polychromasia 1+, Prothrombin Time 33.8H, Prothromb Time International Ratio 3.4H, Sodium Level 136, Potassium Level 3.5, Chloride Level 100, Carbon Dioxide Level 20L, Anion Gap 16H, Blood Urea Nitrogen 42H, Creatinine 3.8H, Estimat Glomerular Filtration Rate , Glucose Level 137H, Uric Acid 7.8H, Calcium Level 7.1L, Phosphorus Level 5.3H, Magnesium Level 1.6L, Total Bilirubin 0.4, Aspartate Amino Transf (AST/SGOT) 22, Alanine Aminotransferase (ALT/SGPT) < 6L, Alkaline Phosphatase 115, Pro-B-Type Natriuretic Peptide > 73705I, Total Protein 5.9L, Albumin 1.6L, Globulin 4.3, Albumin/Globulin Ratio 0.4L Height (Feet): 5 Height (Inches): 6.00 Weight (Pounds): 172 General Appearance: other - pale Cardiovascular: normal rate Respiratory/Chest: decreased breath sounds Abdomen: distended Objective no change Sukhdeep Rodriguez MD Sep 04, 2018 14:08
[2018-09-04 16:00] VITALS: BP 127/62
--- NOTE | 2018-09-04 16:15 | Progress Note ---
DATE: 09/04/2018 CARDIOLOGY PROGRESS NOTE SUBJECTIVE: The patient continues with hematuria. He has a positive DVT. OBJECTIVE: VITAL SIGNS: Blood pressure 139/72, pulse 72, respiratory rate 18, and afebrile. LUNGS: Clear. CARDIAC: Regular. Normal S1, S2 with a fourth heart sound. ABDOMEN: Soft. EXTREMITIES: No edema. LABORATORY DATA: White count 13.5, hemoglobin 7.1. Potassium 3.5, BUN 42, creatinine 3.8, magnesium 1.6. Pro- natriuretic peptide 35,000. Albumin 1.6. INR 3.4. IMPRESSION: 1. Acute DVT. 2. Coagulopathy. 3. Hematuria. 4. Anemia. 5. Severe protein-calorie malnutrition. 6. Acute on chronic renal failure. 7. Acute on chronic systolic and diastolic congestive heart failure. 8. Acute myocardial infarction. PLAN: 1. Diuresis. 2. No anti-platelet or anticoagulant. 3. IVC filter. 4. Transfusion of packed red blood cells. 5. FFP and vitamin K. 6. Condition remains critical with guarded prognosis. Eric Brown M.D. DR: Pepito JOB#: [id number] CC:
--- NOTE | 2018-09-04 16:53 | NUR ---
NURSE NOTES: Unit of FFP started. HR 67, BP 127/73, T 97.7 Pt resting comfortably in bed, no sidnificant change after 15 minutes. Pt breathing easily on room air, denies any pain.
[2018-09-04 17:17] LABS: CREATININE 3.8 MG/DL (0.55-1.30)
--- NOTE | 2018-09-04 19:45 | NUR ---
NURSE NOTES: Received pt from PARAM Medel. Pt is awake and resting in bed tolerating room air. IV site is intact and patent. Pt is receiving PRBC which began prior to shift change, pt is asymptomatic. Suprapubic catheter is intact with low urine drainage. Abdominal pads on suprapubic catheter region are saturated, will change prn. Bed is in lowest position, locked, and call light within reach. Will continue with plan of care.
[2018-09-04 20:00] VITALS: BP 182/90
--- NOTE | 2018-09-04 20:00 | NUR ---
NURSE NOTES: Attempted to contact Ms. Pineda in order to get consent for the IVC filter procedure. Nobody answered my call, but I left a message asking for a call back. Will follow up.
--- NOTE | 2018-09-04 20:14 | NUR ---
NURSE NOTES: Abdominal pads are saturated from suprapubic region. Left a message for Dr. Vila explaining that the suprapubic region is still bleeding. Awaiting call back.
[2018-09-04] MEDS: Tamsulosin 0.4mg cap ORAL SCH (20:32)
--- NOTE | 2018-09-04 20:35 | NUR ---
Dr. George who is covering for Dr. Vila called back stating that he will be coming in [facility] to assess pt.
--- NOTE | 2018-09-04 21:30 | NUR ---
NURSE NOTES: Changed abdominal dressing due to saturation.
--- NOTE | 2018-09-04 22:30 | NUR ---
NURSE NOTES: Blood transfusion is complete. Pt asymptomatic. VS 99.0F, 140/73, 64bpm, 20 respirations, 98%O2, Pain scale 0/10.
[2018-09-05] VITALS (10 sets, daily range): BP systolic 135–169; BP diastolic 73–82
[2018-09-05] MEDS: Piperacillin/Tazobactam 3.375 GM in NS 110 ML IVPB SCH (01:10)
[2018-09-05] MEDS: Phenytoin 100mg cap ORAL SCH ×3 (06:22→22:12)
[2018-09-05] MEDS: HydrALAZINE 50mg tab ORAL SCH ×3 (06:22→22:11)
[2018-09-05] MEDS: cloNIDine 0.2mg Tab ORAL SCH ×3 (06:22→22:12)
[2018-09-05] MEDS: NovoLOG Insulin Flexpen SUBQ SCH ×4 (06:33→21:00)
[2018-09-05 06:57] LABS: INR 1.2 (0.9-1.1)
--- NOTE | 2018-09-05 06:58 | NUR ---
NURSE NOTES: Attempted to contact Ms. Pineda in order to get consent for the IVC filter procedure. Nobody answered to call, but I left a message asking for a call back. Will endorsed to day nurse.
[2018-09-05 07:06] LABS: BASOPHILS % (AUTO) 0.7 % (0.0-2.0); EOSINOPHILS % (AUTO) 7.3 % (0.0-3.0); HEMATOCRIT 24.8 % (42.0-52.0); HEMOGLOBIN 8.4 G/DL (14.2-18.0); LYMPHOCYTES % (AUTO) 11.1 % (20.0-45.0); MEAN CORPUSCULAR VOLUME 89 FL (80-99); MONOCYTES % (AUTO) 8.7 % (1.0-10.0); NEUTROPHILS % (AUTO) 72.2 % (45.0-75.0); PLATELET COUNT 237 K/UL (150-450); RED BLOOD COUNT 2.79 M/UL (4.70-6.10); RED CELL DISTRIBUTION WIDTH 14.2 % (11.6-14.8); WHITE BLOOD COUNT 13.9 K/UL (4.8-10.8)
[2018-09-05 07:16] LABS: ALBUMIN 1.8 G/DL (3.4-5.0); ALBUMIN/GLOBULIN RATIO 0.4 (1.0-2.7); ALKALINE PHOSPHATASE 129 U/L (46-116); ANION GAP 16 mmol/L (5-15); ASPARTATE AMINO TRANSFERASE 21 U/L (15-37); BILIRUBIN,TOTAL 0.5 MG/DL (0.2-1.0); BLOOD UREA NITROGEN 40 mg/dL (7-18); CALCIUM 7.3 MG/DL (8.5-10.1); CARBON DIOXIDE 21 MMOL/L (21-32); CHLORIDE 99 MMOL/L (98-107); CREATININE 3.9 MG/DL (0.55-1.30); POTASSIUM 3.6 MMOL/L (3.5-5.1); SODIUM 136 MMOL/L (136-145)
[2018-09-05 07:22] LABS: PHOSPHORUS 5.7 MG/DL (2.5-4.9)
[2018-09-05 07:25] LABS: ALANINE AMINOTRANSFERASE < 6 U/L (12-78)
--- NOTE | 2018-09-05 07:30 | NUR ---
NURSE NOTES: pt awake alert, no distress. no c/o pain. changed suprapubic weathers dressing, oozing blood from surgical site, saturated 2 abdominal pads removed , cleaned around site, changed dressing. will monitor.
--- NOTE | 2018-09-05 07:39 | General Progress Note ---
Assessment/Plan Problem List: (1) Acute renal insufficiency ICD Codes: N28.9 - Disorder of kidney and ureter, unspecified SNOMED: 23541213 (2) Leukocytosis ICD Codes: D72.829 - Elevated white blood cell count, unspecified SNOMED: 435540909 (3) Hematuria, gross ICD Codes: R31.0 - Gross hematuria SNOMED: 460249262 (4) Prostate hypertrophy ICD Codes: N40.0 - Benign prostatic hyperplasia without lower urinary tract symptoms SNOMED: 839863783 (5) UTI (urinary tract infection) ICD Codes: N39.0 - Urinary tract infection, site not specified SNOMED: 90280632 (6) Urethral stricture SNOMED: 22372399 (7) AMI (acute myocardial infarction) ICD Codes: I21.9 - Acute myocardial infarction, unspecified SNOMED: 28535834 Status: stable, progressing Assessment/Plan: suprapubic catheter to gravity cautious antiplt rx BP rx cannot anticoagulate with hematuria, anemia, ob + stool will order emergent ivc filter. at risk for life threatening PE. cannot anticoagulate VIt k/FFP as needed transfuse as needed ivc filter today? dc planning soon Subjective ROS Limited/Unobtainable: No Constitutional: Reports: malaise, weakness HEENT: Reports: no symptoms Cardiovascular: Reports: no symptoms Respiratory: Reports: no symptoms Gastrointestinal/Abdominal: Reports: no symptoms Genitourinary: Reports: no symptoms Neurologic/Psychiatric: Reports: anxiety Endocrine: Reports: no symptoms Hematologic/Lymphatic: Reports: anemia Allergies: Coded Allergies: NO KNOWN DRUG ALLERGIES (Unverified Allergy, Unknown, 04/11/14) All Systems: reviewed and negative except above Subjective no complaints. no cp/sob. renal fxn stable. no fevers. labs reviewed on abx. coagulopathy better. no hematuria this am Objective Last 24 Hour Vital Signs Date Time Temp Pulse Resp B/P (MAP) Pulse Ox O2 Delivery O2 Flow Rate FiO2 09/05/18 06:22 164/77 09/05/18 06:22 164/77 09/05/18 04:41 166/78 09/05/18 04:00 99.0 62 19 169/82 (111) 96 09/05/18 04:00 62 09/05/18 00:00 97.9 61 18 135/74 (94) 96 09/05/18 00:00 61 09/04/18 23:09 150/73 09/04/18 23:09 150/73 09/04/18 21:00 Room Air 09/04/18 20:32 70 170/88 09/04/18 20:32 70 170/88 09/04/18 20:00 69 09/04/18 20:00 99.0 69 19 182/90 (120) 98 09/04/18 17:40 68 127/62 09/04/18 16:00 97.1 68 20 127/62 (83) 98 09/04/18 16:00 68 09/04/18 13:17 139/72 09/04/18 13:16 139/72 09/04/18 12:00 97.5 65 20 147/60 (89) 97 09/04/18 12:00 67 09/04/18 10:04 72 139/72 09/04/18 09:56 72 139/72 09/04/18 09:55 139/72 09/04/18 09:52 67 139/72 09/04/18 09:00 Room Air 09/04/18 08:00 66 09/04/18 08:00 97.3 67 17 144/81 (102) 96 Intake and Output 09/04/18 09/05/18 19:00 07:00 Intake Total 360 ml 300 ml Output Total 500 ml Balance 360 ml -200 ml Intake Oral 360 ml 300 ml Output Urine Total 500 ml # Bowel Movements 2 1 Laboratory Tests 09/04/18 08:19: White Blood Count 13.5H, Red Blood Count 2.33L, Hemoglobin 7.1L, Hematocrit 21.2L, Mean Corpuscular Volume 91, Mean Corpuscular Hemoglobin 30.5, Mean Corpuscular Hemoglobin Concent 33.6, Red Cell Distribution Width 15.7H, Platelet Count 251, Mean Platelet Volume 5.3L, Neutrophils (%) (Auto) , Lymphocytes (%) (Auto) , Monocytes (%) (Auto) , Eosinophils (%) (Auto) , Basophils (%) (Auto) , Differential Total Cells Counted 100, Neutrophils % ( Manual) 76H, Lymphocytes % (Manual) 10L, Monocytes % (Manual) 8, Eosinophils % ( Manual) 6H, Basophils % (Manual) 0, Band Neutrophils 0, Platelet Estimate Adequate, Platelet Morphology Normal, Polychromasia 1+, Anisocytosis 1+, Prothrombin Time 33.8H, Prothromb Time International Ratio 3.4H, Sodium Level 136, Potassium Level 3.5, Chloride Level 100, Carbon Dioxide Level 20L, Anion Gap 16H, Blood Urea Nitrogen 42H, Creatinine 3.8H, Estimat Glomerular Filtration Rate , Glucose Level 137H, Uric Acid 7.8H, Calcium Level 7.1L, Phosphorus Level 5.3H, Magnesium Level 1.6L, Total Bilirubin 0.4, Aspartate Amino Transf (AST/SGOT) 22, Alanine Aminotransferase (ALT/SGPT) < 6L, Alkaline Phosphatase 115, Pro-B-Type Natriuretic Peptide > 24706G, Total Protein 5.9L, Albumin 1.6L, Globulin 4.3, Albumin/Globulin Ratio 0.4L 09/05/18 05:00: White Blood Count 13.9H, Red Blood Count 2.79L, Hemoglobin 8.4L, Hematocrit 24.8L, Mean Corpuscular Volume 89, Mean Corpuscular Hemoglobin 30.1, Mean Corpuscular Hemoglobin Concent 34.0, Red Cell Distribution Width 14.2, Platelet Count 237, Mean Platelet Volume 5.8L, Neutrophils (%) (Auto) 72.2, Lymphocytes ( %) (Auto) 11.1L, Monocytes (%) (Auto) 8.7, Eosinophils (%) (Auto) 7.3H, Basophils (%) (Auto) 0.7, Prothrombin Time 12.7H, Prothromb Time International Ratio 1.2H, Sodium Level 136, Potassium Level 3.6, Chloride Level 99, Carbon Dioxide Level 21, Anion Gap 16H, Blood Urea Nitrogen 40H, Creatinine 3.9H, Estimat Glomerular Filtration Rate , Glucose Level 125H, Uric Acid 7.8H, Calcium Level 7.3L, Phosphorus Level 5.7H, Magnesium Level 2.0, Total Bilirubin 0.5, Aspartate Amino Transf (AST/SGOT) 21, Alanine Aminotransferase (ALT/SGPT) < 6L, Alkaline Phosphatase 129H, Pro-B-Type Natriuretic Peptide 18261B, Total Protein 6.2L, Albumin 1.8L, Globulin 4.4, Albumin/Globulin Ratio 0.4L, C- Reactive Protein, Quantitative 11.4H Height (Feet): 5 Height (Inches): 6.00 Weight (Pounds): 172 Objective General Appearance: WD/WN, alert Neck: supple Cardiovascular: normal rate, regular rhythm Respiratory/Chest: chest wall non-tender, lungs - rhonchi and wheezes Abdomen: normal bowel sounds, non tender, soft, no organomegaly Edema: 1+ edema Anthony Alejandro MD Sep 05, 2018 07:39
--- NOTE | 2018-09-05 08:04 | Pulmonology Progress Note ---
Assessment/Plan Assessment/Plan 1. Acute renal failure. 2. UTI 3. BPH. 4. Hypertension. 5. Seizure Disorder 6. Anemia 7. Likely pulmonary edema 8. Taketsubo Cardiomyopathy 9. Dementia 10. DVT PLAN diurese and monitor labs oxygen as needed monitor imaging and labs later this week IVC filter when able ? today respiratory care follow up exam cards follow up for optimization oxygen needs reviewed uro follow up impression, plan, and exam edited and reviewed in detail care discussed with RN Subjective ROS Limited/Unobtainable: Yes Allergies: Coded Allergies: NO KNOWN DRUG ALLERGIES (Unverified Allergy, Unknown, 04/11/14) Subjective events noted comfortable no distress care reviewed Objective Last 24 Hour Vital Signs Date Time Temp Pulse Resp B/P (MAP) Pulse Ox O2 Delivery O2 Flow Rate FiO2 09/05/18 06:22 164/77 09/05/18 06:22 164/77 09/05/18 04:41 166/78 09/05/18 04:00 99.0 62 19 169/82 (111) 96 09/05/18 04:00 62 09/05/18 00:00 97.9 61 18 135/74 (94) 96 09/05/18 00:00 61 09/04/18 23:09 150/73 09/04/18 23:09 150/73 09/04/18 21:00 Room Air 09/04/18 20:32 70 170/88 09/04/18 20:32 70 170/88 09/04/18 20:00 69 09/04/18 20:00 99.0 69 19 182/90 (120) 98 09/04/18 17:40 68 127/62 09/04/18 16:00 97.1 68 20 127/62 (83) 98 09/04/18 16:00 68 09/04/18 13:17 139/72 09/04/18 13:16 139/72 09/04/18 12:00 97.5 65 20 147/60 (89) 97 09/04/18 12:00 67 09/04/18 10:04 72 139/72 09/04/18 09:56 72 139/72 09/04/18 09:55 139/72 09/04/18 09:52 67 139/72 09/04/18 09:00 Room Air Intake and Output 09/04/18 09/05/18 19:00 07:00 Intake Total 360 ml 300 ml Output Total 500 ml Balance 360 ml -200 ml Intake Oral 360 ml 300 ml Output Urine Total 500 ml # Bowel Movements 2 1 Objective WDWN NAD clear breath sounds bilaterally without rhonchi or wheeze [id number] without MRG NABS nontender no HSM no CC mild edema nonfocal reviewed and edited Laboratory Tests 09/04/18 08:19: White Blood Count 13.5H, Red Blood Count 2.33L, Hemoglobin 7.1L, Hematocrit 21.2L, Mean Corpuscular Volume 91, Mean Corpuscular Hemoglobin 30.5, Mean Corpuscular Hemoglobin Concent 33.6, Red Cell Distribution Width 15.7H, Platelet Count 251, Mean Platelet Volume 5.3L, Neutrophils (%) (Auto) , Lymphocytes (%) (Auto) , Monocytes (%) (Auto) , Eosinophils (%) (Auto) , Basophils (%) (Auto) , Differential Total Cells Counted 100, Neutrophils % ( Manual) 76H, Lymphocytes % (Manual) 10L, Monocytes % (Manual) 8, Eosinophils % ( Manual) 6H, Basophils % (Manual) 0, Band Neutrophils 0, Platelet Estimate Adequate, Platelet Morphology Normal, Polychromasia 1+, Anisocytosis 1+, Prothrombin Time 33.8H, Prothromb Time International Ratio 3.4H, Sodium Level 136, Potassium Level 3.5, Chloride Level 100, Carbon Dioxide Level 20L, Anion Gap 16H, Blood Urea Nitrogen 42H, Creatinine 3.8H, Estimat Glomerular Filtration Rate , Glucose Level 137H, Uric Acid 7.8H, Calcium Level 7.1L, Phosphorus Level 5.3H, Magnesium Level 1.6L, Total Bilirubin 0.4, Aspartate Amino Transf (AST/SGOT) 22, Alanine Aminotransferase (ALT/SGPT) < 6L, Alkaline Phosphatase 115, Pro-B-Type Natriuretic Peptide > 47834S, Total Protein 5.9L, Albumin 1.6L, Globulin 4.3, Albumin/Globulin Ratio 0.4L 09/05/18 05:00: White Blood Count 13.9H, Red Blood Count 2.79L, Hemoglobin 8.4L, Hematocrit 24.8L, Mean Corpuscular Volume 89, Mean Corpuscular Hemoglobin 30.1, Mean Corpuscular Hemoglobin Concent 34.0, Red Cell Distribution Width 14.2, Platelet Count 237, Mean Platelet Volume 5.8L, Neutrophils (%) (Auto) 72.2, Lymphocytes ( %) (Auto) 11.1L, Monocytes (%) (Auto) 8.7, Eosinophils (%) (Auto) 7.3H, Basophils (%) (Auto) 0.7, Prothrombin Time 12.7H, Prothromb Time International Ratio 1.2H, Sodium Level 136, Potassium Level 3.6, Chloride Level 99, Carbon Dioxide Level 21, Anion Gap 16H, Blood Urea Nitrogen 40H, Creatinine 3.9H, Estimat Glomerular Filtration Rate , Glucose Level 125H, Uric Acid 7.8H, Calcium Level 7.3L, Phosphorus Level 5.7H, Magnesium Level 2.0, Total Bilirubin 0.5, Aspartate Amino Transf (AST/SGOT) 21, Alanine Aminotransferase (ALT/SGPT) < 6L, Alkaline Phosphatase 129H, Pro-B-Type Natriuretic Peptide 55287T, Total Protein 6.2L, Albumin 1.8L, Globulin 4.4, Albumin/Globulin Ratio 0.4L, C- Reactive Protein, Quantitative 11.4H Current Medications Medications (Trade) Dose Ordered Sig/Thu Route PRN Reason Start Time Stop Time Status Last Admin Dose Admin Acetaminophen (Tylenol) 650 mg Q6H PRN ORAL For Pain 08/26/18 12:30 09/18/18 12:29 Amlodipine Besylate (Norvasc) 5 mg BID ORAL 08/30/18 18:00 09/27/18 13:59 09/04/18 09:52 Aspirin (ASA) 81 mg DAILY ORAL 08/27/18 09:00 09/26/18 08:59 09/04/18 09:53 Carbidopa/Levodopa (Sinemet 25/100) 1 tab THREE TIMES A DAY ORAL 08/26/18 13:00 09/19/18 08:59 09/04/18 12:35 Carvedilol (Coreg) 25 mg EVERY 12 HOURS ORAL 08/30/18 09:00 09/29/18 08:59 09/04/18 20:32 Citalopram Hydrobromide (celeXA) 20 mg DAILY ORAL 08/27/18 09:00 09/19/18 08:59 09/04/18 09:53 Clonidine HCl (Catapres tab) 0.2 mg EVERY 8 HOURS ORAL 08/30/18 22:00 09/19/18 00:00 09/05/18 06:22 Dextromethorphan/ Quinidine (Nuedexta Capsule) 1 cap Q12HR ORAL 08/26/18 21:00 09/19/18 08:59 09/04/18 20:32 Dextrose (Dextrose 50%) 25 ml Q30M PRN IV Hypoglycemia 08/26/18 12:15 09/18/18 22:44 Dextrose (Dextrose 50%) 50 ml Q30M PRN IV Hypoglycemia 08/26/18 12:15 09/18/18 22:44 Docusate Sodium (Colace) 100 mg TID ORAL 08/26/18 13:00 09/19/18 08:59 09/04/18 12:35 Donepezil HCl (Aricept) 10 mg DAILY ORAL 08/27/18 09:00 09/19/18 08:59 09/04/18 09:54 Epoetin Zaid (Epoetin Zaid-EPBX(NON ESRD)) 10,000 unit WED- SUBQ 08/29/18 21:00 09/28/18 20:59 09/02/18 21:47 Finasteride (Proscar) 5 mg DAILY ORAL 08/27/18 09:00 09/19/18 08:59 09/04/18 09:53 Hydralazine HCl (Apresoline) 25 mg Q4H PRN ORAL bp over 160 syst 08/28/18 14:00 09/27/18 13:59 09/05/18 04:41 Hydralazine HCl (Apresoline) 100 mg Q8HR ORAL 08/29/18 06:00 09/28/18 05:59 09/05/18 06:22 Insulin Aspart (NovoLOG) BEFORE MEALS AND HS SUBQ 08/26/18 16:30 09/19/18 06:29 09/05/18 06:33 Isosorbide Mononitrate (Imdur) 60 mg DAILY ORAL 08/30/18 09:00 09/29/18 08:59 09/04/18 09:55 Morphine Sulfate (Morphine Sulfate) 1 mg Q2H PRN IVP Breakthrough Pain 09/01/18 18:00 09/08/18 17:59 09/04/18 18:13 Oxycodone/ Acetaminophen (Percocet 5-325) 1 tab Q6H PRN ORAL Severe Pain (Pain Scale 7-10) 09/01/18 18:00 09/08/18 17:59 09/01/18 17:58 Pantoprazole (Protonix) 40 mg BID ORAL 08/27/18 14:15 09/26/18 14:14 09/04/18 09:54 Phenytoin (Dilantin) 100 mg Q8HR ORAL 08/31/18 14:00 09/25/18 12:59 09/05/18 06:22 Phytonadione (Vitamin K) 10 mg DAILY SUBQ 09/04/18 11:45 10/04/18 11:44 UNV Piperacillin Sod/ Tazobactam Sod 3.375 gm/Sodium Chloride 110 ml @ 27.5 mls/hr Q12H IVPB 08/26/18 13:00 09/05/18 12:59 09/05/18 01:10 Potassium Chloride (K-Dur) 30 meq DAILY ORAL 09/03/18 10:30 10/03/18 10:29 09/04/18 09:53 Pravastatin Sodium (Pravachol) 80 mg BEDTIME ORAL 08/26/18 21:00 09/19/18 20:59 09/04/18 20:31 Tamsulosin HCl (Flomax) 0.4 mg QHS ORAL 09/03/18 21:00 09/19/18 20:59 09/04/18 20:32 Vitamin B Complex/ Vit C/Folic Acid (Nephrovite) 1 tab DAILY ORAL 08/27/18 09:00 09/19/18 08:59 09/04/18 09:54 Hari Ogden MD Sep 05, 2018 08:04
--- NOTE | 2018-09-05 08:08 | General Progress Note ---
Progress Note Progress Note No events. Has had some continual mild oozing from SP site AFVSS Urine- clear/ yellow PE- abd soft, NT, ND SP site C/D/I, mild oozing, no sig bleeding. No hematoma etc. Ext WWP A/P- stable s/p SP tube placement urine now clear SP site with mild oozing of blood; will cont expectant management of same. Dheeraj Haro M.D. Sep 05, 2018 08:08
--- NOTE | 2018-09-05 08:13 | NUR ---
NURSE NOTES: spoke w Dr Haro in person per md not a concern since no hematoma and not much blood, relayed to md that rn just changed the dressing as well. no new orders given.
[2018-09-05] MEDS: Levodopa/Carbidopa 25/100 tab ORAL SCH ×3 (08:23→17:07)
[2018-09-05] MEDS: Carvedilol 25mg Tab ORAL SCH ×2 (08:24→21:00)
[2018-09-05] MEDS: Imdur 30mg tab ORAL SCH (08:24)
[2018-09-05] MEDS: Docusate 100mg cap ORAL SCH ×3 (08:24→17:07)
[2018-09-05] MEDS: Nephrovite tab (Rena-Vite) ORAL SCH (08:24)
[2018-09-05] MEDS: Aspirin Baby 81mg ORAL SCH (08:24)
[2018-09-05] MEDS: Nuedexta Capsule 20/10mg ORAL SCH ×2 (08:24→21:00)
[2018-09-05] MEDS: Donepezil 10mg tab ORAL SCH (08:24)
[2018-09-05] MEDS: Citalopram Hydrobromide 10mg Tab ORAL SCH (08:24)
--- NOTE | 2018-09-05 10:04 | Nephrology Progress Note ---
Assessment/Plan Problem List: (1) Renal failure (ARF), acute on chronic (2) Prostate hypertrophy (3) Bilateral hydronephrosis (4) Urethral stricture (5) UTI (urinary tract infection) (6) Elevated troponin I level (7) Cardiomyopathy (8) Hypertensive kidney disease Assessment Acute on chronic renal failure Likely Diabetic Nephrosclerosis urinary retention on bladder scan Anemia of CKD Proteinuria / HypoAlbuminemia likely due to DM BPH HTN Parkinsons bilateral hydro elevated troponin Plan worsening anemia - bleeding via suprapubic cath Patient need to have an IVC filter to stop further anticoagulation treatment and in my opinion this is an emergency had cysto and supra pubic 09/01 24 h urine Cr Cl and protein ? Transfuse as needed recheck labs in am- transfuse as needed gastric support optimize cardiac status DC cogentin due to retention adjust BP meds Po Bicitra Kidney TONY noted bilateral hydro Uro intervention adjust BP meds Anemia potts check Uric Acid Urine studies up dose flomax per orders check dialntin level Left ventricular lazo in the basal regions are contracted normally however the apical segments are akinetic, 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 Mild left ventricular enlargement. Subjective ROS Limited/Unobtainable: No Constitutional: Reports: malaise Objective Objective Last 24 Hour Vital Signs Date Time Temp Pulse Resp B/P (MAP) Pulse Ox O2 Delivery O2 Flow Rate FiO2 09/05/18 08:24 62 150/82 09/05/18 08:24 62 150/82 09/05/18 08:24 150/82 09/05/18 08:00 98.4 62 19 150/82 (104) 96 09/05/18 07:52 65 09/05/18 06:22 164/77 09/05/18 06:22 164/77 09/05/18 04:41 166/78 09/05/18 04:00 99.0 62 19 169/82 (111) 96 09/05/18 04:00 62 09/05/18 00:00 97.9 61 18 135/74 (94) 96 09/05/18 00:00 61 09/04/18 23:09 150/73 09/04/18 23:09 150/73 09/04/18 21:00 Room Air 09/04/18 20:32 70 170/88 09/04/18 20:32 70 170/88 09/04/18 20:00 69 09/04/18 20:00 99.0 69 19 182/90 (120) 98 09/04/18 17:40 68 127/62 09/04/18 16:00 97.1 68 20 127/62 (83) 98 09/04/18 16:00 68 09/04/18 13:17 139/72 09/04/18 13:16 139/72 09/04/18 12:00 97.5 65 20 147/60 (89) 97 09/04/18 12:00 67 09/04/18 10:04 72 139/72 Intake and Output 09/04/18 09/05/18 18:59 06:59 Intake Total 360 ml 300 ml Output Total 500 ml Balance 360 ml -200 ml Intake Oral 360 ml 300 ml Output Urine Total 500 ml # Bowel Movements 2 1 Laboratory Tests 09/05/18 05:00: White Blood Count 13.9H, Red Blood Count 2.79L, Hemoglobin 8.4L, Hematocrit 24.8L, Mean Corpuscular Volume 89, Mean Corpuscular Hemoglobin 30.1, Mean Corpuscular Hemoglobin Concent 34.0, Red Cell Distribution Width 14.2, Platelet Count 237, Mean Platelet Volume 5.8L, Neutrophils (%) (Auto) 72.2, Lymphocytes ( %) (Auto) 11.1L, Monocytes (%) (Auto) 8.7, Eosinophils (%) (Auto) 7.3H, Basophils (%) (Auto) 0.7, Prothrombin Time 12.7H, Prothromb Time International Ratio 1.2H, Sodium Level 136, Potassium Level 3.6, Chloride Level 99, Carbon Dioxide Level 21, Anion Gap 16H, Blood Urea Nitrogen 40H, Creatinine 3.9H, Estimat Glomerular Filtration Rate , Glucose Level 125H, Uric Acid 7.8H, Calcium Level 7.3L, Phosphorus Level 5.7H, Magnesium Level 2.0, Total Bilirubin 0.5, Aspartate Amino Transf (AST/SGOT) 21, Alanine Aminotransferase (ALT/SGPT) < 6L, Alkaline Phosphatase 129H, C-Reactive Protein, Quantitative 11.4H, Pro-B- Type Natriuretic Peptide 50822V, Total Protein 6.2L, Albumin 1.8L, Globulin 4.4 , Albumin/Globulin Ratio 0.4L Height (Feet): 5 Height (Inches): 6.00 Weight (Pounds): 172 General Appearance: no apparent distress Cardiovascular: normal rate Respiratory/Chest: decreased breath sounds Abdomen: distended Objective no change Sukhdeep Rodriguez MD Sep 05, 2018 10:04
--- NOTE | 2018-09-05 10:18 | NUR ---
NURSE NOTES: called and spoke w conservator ms ruiz they cannot consent on anything invasive, needs court approval which could take weeks left msg to dr nguyen relayed info, awaiting response. rad dept aware of this - spoke w Ed
[2018-09-05] MEDS ORDERED: Omnipaque-300 100ml vial INJ ONE (14:00)
[2018-09-05] MEDS ORDERED: Lidocaine 1% Plain 30 ml INJ ONE (14:00)
[2018-09-05] MEDS ORDERED: Heparin1,000 units/500ml Premix(Conc:2 units/ml) INJ ONE (14:00)
--- NOTE | 2018-09-05 14:06 | NUR ---
NURSE NOTES: pt suprapubic weathers dressing changed due to blood bright red saturation of 2 abd pads, still active oozing from suprapubic weathers site, no clots, changed dressing. Reported to Dr Haro per md " saw him this morning, oozing should clear up since urine is yellow "
--- NOTE | 2018-09-05 14:35 | Pre-Procedure Note/Attestation ---
Pre-Procedure Note/Attestation Complete Prior to Procedure Planned Procedure: right Procedure Narrative: IVC filter via right Internal jugular vein Indications for Procedure Pre-Operative Diagnosis: requires IVC filter. contraindication anticoagulate Attestation I attest that I discussed the nature of the procedure; its benefits; risks and complications; and alternatives (and the risks and benefits of such alternatives ), prior to the procedure, with the patient (or the patient's legal quality assurance representative). I attest that, if there was a reasonable possibility of needing a blood transfusion, the patient (or the patient's legal quality assurance representative) was given the [facility] standardized written summary, pursuant to the [place] Blood Safety Act ([place] Health and Safety Code # 1645, as amended). I attest that I re-evaluated the patient just prior to the surgery and that there has been no change in the patient's H&P, except as documented below: Waqar Vaughn MD Sep 05, 2018 14:35
--- NOTE | 2018-09-05 15:43 | NUR ---
CASE MANAGEMENT:REVIEW 09/05/18 SI: SEVEN. HEMATURIA. UTI. AMI URETHRAL STRICTURE ~ POD #4 S/P CYSTOSCOPY AND TUBE PLACEMENT 98.1 72 19 151/78 96% ON RA WBC+13.9 H/H-8.4/24.8 BUN+40 CR+3.9 IS: FLOMAX PO QHS K-DUR PO QD DILANTIN PO Q8HR CLONIDINE PO Q8 NORVASC PO BID IMDUR PO QD COREG PO Q12 EPOETIN SQ MWF ASA PO QD : TELEMETRY STATUS DCP: FROM NURIA CASEY
--- NOTE | 2018-09-05 17:05 | Diagnostic Imaging Report ---
Indication:Contraindication to medical anticoagulation Procedure: After the indications, procedure, risks, complications, and alternatives of the procedure were explained, written informed consent was obtained. Patient was brought to the angio-fluoroscopic suite and placed supine on the table. The right neck was prepped and draped in the standard sterile fashion.1% lidocaine was used to anesthetize the skin. Using ultrasound guidance, the jugular vein was accessed using an 18 gauge needle. An 035 wire was introduced over which a 4 malian multi-endhole infusion catheter was introduced and negotiated into the lower IVC. Standard venogram was performed with digital subtraction. Location of the renal veins was noted. Inferior vena cava filter sheath was then exchanged over the wire. Inner stylette and wire then removed. The filter was then inserted into the sheath. Under fluoroscopic observation, the IVC filter was then unsheathed and deployed. The sheath was carefully removed under fluoroscopic observation. Total fluoroscopic time: 122 seconds. There were no complications. The patient tolerated the procedure well. Manual pressure was held at the site of venopuncture until hemostasis was achieved. Impression: Successful placement of inferior vena cava filter below the renal veins.
--- NOTE | 2018-09-05 19:14 | NUR ---
HAND-OFF: Report given to TOMAS VIRGEN.
--- NOTE | 2018-09-05 19:15 | NUR ---
NURSE NOTES: Got report from Sharad VIRGEN. Pt in stable condition. Denies kareen pain. No s/s of distress or discomfort noted. Pt resting in bed comfortably. Bed in low and locked position, call light within reach, bedside table within reach. Continue to monitor.
[2018-09-05] MEDS: Tamsulosin 0.4mg cap ORAL SCH (21:00)
[2018-09-05] MEDS: Epoetin Alfa-EPBX (NON ESRD)10,000 unit/ml vial SUBQ SCH (21:00)
[2018-09-06] VITALS: BP 122/56
[2018-09-06 04:00] VITALS: BP_SYST 110; BP_SYST 115; BP_DIAS 68; BP_DIAS 76
[2018-09-06] MEDS: HydrALAZINE 50mg tab ORAL SCH ×3 (06:16→22:22)
[2018-09-06] MEDS: Phenytoin 100mg cap ORAL SCH ×3 (06:16→22:21)
[2018-09-06] MEDS: cloNIDine 0.2mg Tab ORAL SCH ×3 (06:16→22:21)
[2018-09-06] MEDS: NovoLOG Insulin Flexpen SUBQ SCH ×4 (06:21→21:30)
--- NOTE | 2018-09-06 07:00 | NUR ---
HAND-OFF: Report given to Sharad VIRGEN. Endorsed plan of care.
--- NOTE | 2018-09-06 07:35 | NUR ---
NURSE NOTES: pt awake alert, no distress. no sob. no c/o pain at this time. call light within reach. bed in lowest position, locked. pt refused to change dressing at this time at the suprapubic weathers site, dressing appears to be mildly saturated but not fully. pt agreed to have dressing changed after breakfast
[2018-09-06 07:36] VITALS: BP 130/50
[2018-09-06] MEDS: Nephrovite tab (Rena-Vite) ORAL SCH (08:20)
[2018-09-06] MEDS: Donepezil 10mg tab ORAL SCH (08:20)
[2018-09-06] MEDS: Aspirin Baby 81mg ORAL SCH (08:20)
[2018-09-06] MEDS: Imdur 30mg tab ORAL SCH (08:20)
[2018-09-06] MEDS: Nuedexta Capsule 20/10mg ORAL SCH ×2 (08:20→21:15)
[2018-09-06] MEDS: Docusate 100mg cap ORAL SCH ×3 (08:20→17:12)
[2018-09-06] MEDS: Citalopram Hydrobromide 10mg Tab ORAL SCH (08:20)
[2018-09-06] MEDS: Levodopa/Carbidopa 25/100 tab ORAL SCH ×3 (08:20→17:12)
[2018-09-06] MEDS: Carvedilol 25mg Tab ORAL SCH ×2 (08:20→21:15)
--- NOTE | 2018-09-06 08:31 | General Progress Note ---
Assessment/Plan Problem List: (1) Acute renal insufficiency ICD Codes: N28.9 - Disorder of kidney and ureter, unspecified SNOMED: 42782406 (2) Leukocytosis ICD Codes: D72.829 - Elevated white blood cell count, unspecified SNOMED: 087903073 (3) Hematuria, gross ICD Codes: R31.0 - Gross hematuria SNOMED: 597107564 (4) Prostate hypertrophy ICD Codes: N40.0 - Benign prostatic hyperplasia without lower urinary tract symptoms SNOMED: 352715819 (5) UTI (urinary tract infection) ICD Codes: N39.0 - Urinary tract infection, site not specified SNOMED: 04531659 (6) Urethral stricture SNOMED: 81743600 (7) AMI (acute myocardial infarction) ICD Codes: I21.9 - Acute myocardial infarction, unspecified SNOMED: 44151378 Status: stable, progressing Assessment/Plan: suprapubic catheter to gravity cautious antiplt rx BP rx cannot anticoagulate with hematuria, anemia, ob + stool follow up pending labs VIt k/FFP as needed transfuse as needed dc planning today if labs ok and cleared by consultants Subjective ROS Limited/Unobtainable: No Constitutional: Reports: malaise, weakness HEENT: Reports: no symptoms Cardiovascular: Reports: no symptoms Respiratory: Reports: no symptoms Gastrointestinal/Abdominal: Reports: no symptoms Genitourinary: Reports: hematuria Neurologic/Psychiatric: Reports: anxiety, emotional problems Endocrine: Reports: no symptoms Hematologic/Lymphatic: Reports: no symptoms Allergies: Coded Allergies: NO KNOWN DRUG ALLERGIES (Unverified Allergy, Unknown, 04/11/14) All Systems: reviewed and negative except above Subjective no complaints. no cp/sob. labs not done yet. urine is darker. s/p ivc filter yesterday Objective Last 24 Hour Vital Signs Date Time Temp Pulse Resp B/P (MAP) Pulse Ox O2 Delivery O2 Flow Rate FiO2 09/06/18 08:21 78 130/50 09/06/18 08:20 78 130/50 09/06/18 08:20 130/50 09/06/18 07:36 98.4 78 20 130/50 (76) 98 09/06/18 06:16 110/68 09/06/18 06:16 110/68 09/06/18 04:20 74 09/06/18 04:00 98.4 77 20 115/76 (89) 09/06/18 04:00 98.4 77 20 110/68 (82) 98 09/06/18 00:00 67 09/06/18 00:00 98.1 70 20 122/56 (78) 98 09/05/18 22:12 145/76 09/05/18 22:11 145/76 09/05/18 21:00 Room Air 09/05/18 21:00 70 145/76 09/05/18 20:00 64 09/05/18 20:00 97.6 70 20 145/76 (99) 98 09/05/18 20:00 97.6 70 20 145/76 (99) 98 09/05/18 17:07 66 153/73 09/05/18 16:00 97.4 66 18 153/73 (99) 100 09/05/18 15:39 70 09/05/18 14:55 66 18 151/73 (99) 100 09/05/18 14:50 66 18 141/77 (98) 100 09/05/18 14:45 67 18 141/75 (97) 100 09/05/18 14:14 64 18 09/05/18 13:24 151/78 09/05/18 13:24 151/78 09/05/18 12:00 98.1 72 19 151/78 (102) 96 09/05/18 11:57 64 09/05/18 09:00 Room Air Intake and Output 09/05/18 09/06/18 19:00 07:00 Intake Total 410 ml Output Total 300 ml 401 ml Balance 110 ml -401 ml Intake Oral 410 ml Output Urine Total 300 ml 400 ml Stool Total 1 ml Height (Feet): 5 Height (Inches): 6.00 Weight (Pounds): 172 Objective General Appearance: WD/WN, alert Neck: supple Cardiovascular: normal rate, regular rhythm Respiratory/Chest: chest wall non-tender, lungs - rhonchi and wheezes Abdomen: normal bowel sounds, non tender, soft, no organomegaly Edema: 1+ edema Anthony Alejandro MD Sep 06, 2018 08:31
[2018-09-06 08:44] LABS: HEMATOCRIT 21.2 % (42.0-52.0); HEMOGLOBIN 7.3 G/DL (14.2-18.0); MEAN CORPUSCULAR VOLUME 88 FL (80-99); PLATELET COUNT 261 K/UL (150-450); RED CELL DISTRIBUTION WIDTH 15.2 % (11.6-14.8); WHITE BLOOD COUNT 14.2 K/UL (4.8-10.8)
[2018-09-06 09:05] LABS: ANION GAP 15 mmol/L (5-15); BLOOD UREA NITROGEN 45 mg/dL (7-18); CALCIUM 7.2 MG/DL (8.5-10.1); CARBON DIOXIDE 19 MMOL/L (21-32); CHLORIDE 98 MMOL/L (98-107); CREATININE 3.9 MG/DL (0.55-1.30); POTASSIUM 3.9 MMOL/L (3.5-5.1); SODIUM 132 MMOL/L (136-145)
[2018-09-06 09:15] LABS: ALANINE AMINOTRANSFERASE < 6 U/L (12-78); ALBUMIN 1.7 G/DL (3.4-5.0); ALBUMIN/GLOBULIN RATIO 0.4 (1.0-2.7); ALKALINE PHOSPHATASE 136 U/L (46-116); ASPARTATE AMINO TRANSFERASE 20 U/L (15-37); BILIRUBIN,TOTAL 0.4 MG/DL (0.2-1.0); PHOSPHORUS 5.6 MG/DL (2.5-4.9)
--- NOTE | 2018-09-06 10:19 | NUR ---
NURSE NOTES: RELAYED TO DR JOSIANE BELTRAN , RECEIVED ORDER FOR 1UPRBC
--- NOTE | 2018-09-06 11:18 | Nephrology Progress Note ---
Assessment/Plan Problem List: (1) Renal failure (ARF), acute on chronic (2) Prostate hypertrophy (3) Bilateral hydronephrosis (4) Urethral stricture (5) UTI (urinary tract infection) (6) Elevated troponin I level (7) Cardiomyopathy (8) Hypertensive kidney disease Assessment Acute on chronic renal failure Likely Diabetic Nephrosclerosis urinary retention on bladder scan Anemia of CKD Proteinuria / HypoAlbuminemia likely due to DM BPH HTN Parkinsons bilateral hydro elevated troponin Plan Crcl # 1 is error worsening anemia - bleeding via suprapubic cath Patient need to have an IVC filter to stop further anticoagulation treatment and in my opinion this is an emergency had cysto and supra pubic 09/01 24 h urine Cr Cl and protein ? Transfuse as needed recheck labs in am- transfuse as needed gastric support optimize cardiac status DC cogentin due to retention adjust BP meds Po Bicitra Kidney TONY noted bilateral hydro Uro intervention adjust BP meds Anemia potts check Uric Acid Urine studies up dose flomax per orders check dialntin level Left ventricular lazo in the basal regions are contracted normally however the apical segments are akinetic, 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 Mild left ventricular enlargement. Subjective ROS Limited/Unobtainable: No Constitutional: Reports: malaise Objective Objective Last 24 Hour Vital Signs Date Time Temp Pulse Resp B/P (MAP) Pulse Ox O2 Delivery O2 Flow Rate FiO2 09/06/18 09:00 Room Air 09/06/18 08:21 78 130/50 09/06/18 08:20 78 130/50 09/06/18 08:20 130/50 09/06/18 07:53 83 09/06/18 07:36 98.4 78 20 130/50 (76) 98 09/06/18 06:16 110/68 09/06/18 06:16 110/68 09/06/18 04:20 74 09/06/18 04:00 98.4 77 20 115/76 (89) 09/06/18 04:00 98.4 77 20 110/68 (82) 98 09/06/18 00:00 67 09/06/18 00:00 98.1 70 20 122/56 (78) 98 09/05/18 22:12 145/76 09/05/18 22:11 145/76 09/05/18 21:00 Room Air 09/05/18 21:00 70 145/76 09/05/18 20:00 64 09/05/18 20:00 97.6 70 20 145/76 (99) 98 09/05/18 20:00 97.6 70 20 145/76 (99) 98 09/05/18 17:07 66 153/73 09/05/18 16:00 97.4 66 18 153/73 (99) 100 09/05/18 15:39 70 09/05/18 14:55 66 18 151/73 (99) 100 09/05/18 14:50 66 18 141/77 (98) 100 09/05/18 14:45 67 18 141/75 (97) 100 09/05/18 14:14 64 18 09/05/18 13:24 151/78 09/05/18 13:24 151/78 09/05/18 12:00 98.1 72 19 151/78 (102) 96 09/05/18 11:57 64 Intake and Output 09/05/18 09/06/18 19:00 07:00 Intake Total 410 ml Output Total 300 ml 401 ml Balance 110 ml -401 ml Intake Oral 410 ml Output Urine Total 300 ml 400 ml Stool Total 1 ml Laboratory Tests 09/06/18 08:15: White Blood Count 14.2H, Red Blood Count 2.40L, Hemoglobin 7.3L, Hematocrit 21.2L, Mean Corpuscular Volume 88, Mean Corpuscular Hemoglobin 30.6, Mean Corpuscular Hemoglobin Concent 34.6, Red Cell Distribution Width 15.2H, Platelet Count 261, Mean Platelet Volume 5.2L, Neutrophils (%) (Auto) , Lymphocytes (%) (Auto) , Monocytes (%) (Auto) , Eosinophils (%) (Auto) , Basophils (%) (Auto) , Differential Total Cells Counted 100, Neutrophils % ( Manual) 78H, Lymphocytes % (Manual) 9L, Monocytes % (Manual) 10, Eosinophils % ( Manual) 3, Basophils % (Manual) 0, Band Neutrophils 0, Platelet Estimate Adequate, Platelet Morphology Normal, Hypochromasia 3+, Anisocytosis 1+, Spherocytes 2+, Sodium Level 132L, Potassium Level 3.9, Chloride Level 98, Carbon Dioxide Level 19L, Anion Gap 15, Blood Urea Nitrogen 45H, Creatinine 3.9H , Estimat Glomerular Filtration Rate , Glucose Level 163H, Uric Acid 8.4H, Calcium Level 7.2L, Phosphorus Level 5.6H, Magnesium Level 2.0, Total Bilirubin 0.4, Aspartate Amino Transf (AST/SGOT) 20, Alanine Aminotransferase (ALT/SGPT) < 6L, Alkaline Phosphatase 136H, Total Protein 6.1L, Albumin 1.7L, Globulin 4.4 , Albumin/Globulin Ratio 0.4L 09/06/18 08:50: Prothrombin Time 10.8, Prothromb Time International Ratio 1.0 Height (Feet): 5 Height (Inches): 6.00 Weight (Pounds): 172 General Appearance: other - PALE Neck: limited range of motion Cardiovascular: normal rate Respiratory/Chest: decreased breath sounds Abdomen: distended Objective no change Sukhdeep Rodriguez MD Sep 06, 2018 11:18
[2018-09-06 12:00] VITALS: BP 119/55
--- NOTE | 2018-09-06 13:16 | Pulmonology Progress Note ---
Assessment/Plan Assessment/Plan 1. Acute renal failure. 2. UTI 3. BPH. 4. Hypertension. 5. Seizure Disorder 6. Anemia 7. Likely pulmonary edema 8. Taketsubo Cardiomyopathy 9. Dementia 10. DVT s/p IVC filter placement PLAN oxygen as needed monitor imaging respiratory care follow up exam cards follow up for optimization oxygen needs reviewed uro follow up impression, plan, and exam edited and reviewed in detail care discussed with RN Subjective Allergies: Coded Allergies: NO KNOWN DRUG ALLERGIES (Unverified Allergy, Unknown, 04/11/14) Subjective events noted comfortable no distress care reviewed and consultants noted Objective Last 24 Hour Vital Signs Date Time Temp Pulse Resp B/P (MAP) Pulse Ox O2 Delivery O2 Flow Rate FiO2 09/06/18 12:00 97.0 78 20 119/55 (76) 98 09/06/18 09:00 Room Air 09/06/18 08:21 78 130/50 09/06/18 08:20 78 130/50 09/06/18 08:20 130/50 09/06/18 07:53 83 09/06/18 07:36 98.4 78 20 130/50 (76) 98 09/06/18 06:16 110/68 09/06/18 06:16 110/68 09/06/18 04:20 74 09/06/18 04:00 98.4 77 20 115/76 (89) 09/06/18 04:00 98.4 77 20 110/68 (82) 98 09/06/18 00:00 67 09/06/18 00:00 98.1 70 20 122/56 (78) 98 09/05/18 22:12 145/76 09/05/18 22:11 145/76 09/05/18 21:00 Room Air 09/05/18 21:00 70 145/76 09/05/18 20:00 64 09/05/18 20:00 97.6 70 20 145/76 (99) 98 09/05/18 20:00 97.6 70 20 145/76 (99) 98 09/05/18 17:07 66 153/73 09/05/18 16:00 97.4 66 18 153/73 (99) 100 09/05/18 15:39 70 09/05/18 14:55 66 18 151/73 (99) 100 09/05/18 14:50 66 18 141/77 (98) 100 09/05/18 14:45 67 18 141/75 (97) 100 09/05/18 14:14 64 18 09/05/18 13:24 151/78 09/05/18 13:24 151/78 Intake and Output 09/05/18 09/06/18 18:59 06:59 Intake Total 410 ml Output Total 300 ml 401 ml Balance 110 ml -401 ml Intake Oral 410 ml Output Urine Total 300 ml 400 ml Stool Total 1 ml Objective WDWN NAD clear breath sounds bilaterally without rhonchi or wheeze [id number] without MRG NABS nontender no HSM no CC mild edema nonfocal reviewed and edited Laboratory Tests 09/06/18 08:15: White Blood Count 14.2H, Red Blood Count 2.40L, Hemoglobin 7.3L, Hematocrit 21.2L, Mean Corpuscular Volume 88, Mean Corpuscular Hemoglobin 30.6, Mean Corpuscular Hemoglobin Concent 34.6, Red Cell Distribution Width 15.2H, Platelet Count 261, Mean Platelet Volume 5.2L, Neutrophils (%) (Auto) , Lymphocytes (%) (Auto) , Monocytes (%) (Auto) , Eosinophils (%) (Auto) , Basophils (%) (Auto) , Differential Total Cells Counted 100, Neutrophils % ( Manual) 78H, Lymphocytes % (Manual) 9L, Monocytes % (Manual) 10, Eosinophils % ( Manual) 3, Basophils % (Manual) 0, Band Neutrophils 0, Platelet Estimate Adequate, Platelet Morphology Normal, Hypochromasia 3+, Anisocytosis 1+, Spherocytes 2+, Sodium Level 132L, Potassium Level 3.9, Chloride Level 98, Carbon Dioxide Level 19L, Anion Gap 15, Blood Urea Nitrogen 45H, Creatinine 3.9H , Estimat Glomerular Filtration Rate , Glucose Level 163H, Uric Acid 8.4H, Calcium Level 7.2L, Phosphorus Level 5.6H, Magnesium Level 2.0, Total Bilirubin 0.4, Aspartate Amino Transf (AST/SGOT) 20, Alanine Aminotransferase (ALT/SGPT) < 6L, Alkaline Phosphatase 136H, Total Protein 6.1L, Albumin 1.7L, Globulin 4.4 , Albumin/Globulin Ratio 0.4L 09/06/18 08:50: Prothrombin Time 10.8, Prothromb Time International Ratio 1.0 Current Medications Medications (Trade) Dose Ordered Sig/Thu Route PRN Reason Start Time Stop Time Status Last Admin Dose Admin Acetaminophen (Tylenol) 650 mg Q6H PRN ORAL For Pain 08/26/18 12:30 09/18/18 12:29 Amlodipine Besylate (Norvasc) 5 mg BID ORAL 08/30/18 18:00 09/27/18 13:59 09/06/18 08:21 Aspirin (ASA) 81 mg DAILY ORAL 08/27/18 09:00 09/26/18 08:59 09/06/18 08:20 Carbidopa/Levodopa (Sinemet 25/100) 1 tab THREE TIMES A DAY ORAL 08/26/18 13:00 09/19/18 08:59 09/06/18 12:20 Carvedilol (Coreg) 25 mg EVERY 12 HOURS ORAL 08/30/18 09:00 09/29/18 08:59 09/06/18 08:20 Citalopram Hydrobromide (celeXA) 20 mg DAILY ORAL 08/27/18 09:00 09/19/18 08:59 09/06/18 08:20 Clonidine HCl (Catapres tab) 0.2 mg EVERY 8 HOURS ORAL 08/30/18 22:00 09/19/18 00:00 09/06/18 06:16 Dextromethorphan/ Quinidine (Nuedexta Capsule) 1 cap Q12HR ORAL 08/26/18 21:00 09/19/18 08:59 09/06/18 08:20 Dextrose (Dextrose 50%) 25 ml Q30M PRN IV Hypoglycemia 08/26/18 12:15 09/18/18 22:44 Dextrose (Dextrose 50%) 50 ml Q30M PRN IV Hypoglycemia 08/26/18 12:15 09/18/18 22:44 Docusate Sodium (Colace) 100 mg TID ORAL 08/26/18 13:00 09/19/18 08:59 09/06/18 12:20 Donepezil HCl (Aricept) 10 mg DAILY ORAL 08/27/18 09:00 09/19/18 08:59 09/06/18 08:20 Epoetin Zaid (Epoetin Zaid-EPBX(NON ESRD)) 10,000 unit WED-WED-WED SUBQ 08/29/18 21:00 09/28/18 20:59 09/05/18 21:00 Finasteride (Proscar) 5 mg DAILY ORAL 08/27/18 09:00 09/19/18 08:59 09/06/18 08:20 Hydralazine HCl (Apresoline) 25 mg Q4H PRN ORAL bp over 160 syst 08/28/18 14:00 09/27/18 13:59 09/05/18 04:41 Hydralazine HCl (Apresoline) 100 mg Q8HR ORAL 08/29/18 06:00 09/28/18 05:59 09/06/18 06:16 Insulin Aspart (NovoLOG) BEFORE MEALS AND HS SUBQ 08/26/18 16:30 09/19/18 06:29 09/06/18 11:15 Isosorbide Mononitrate (Imdur) 60 mg DAILY ORAL 08/30/18 09:00 09/29/18 08:59 09/06/18 08:20 Morphine Sulfate (Morphine Sulfate) 1 mg Q2H PRN IVP Breakthrough Pain 09/01/18 18:00 09/08/18 17:59 09/04/18 18:13 Oxycodone/ Acetaminophen (Percocet 5-325) 1 tab Q6H PRN ORAL Severe Pain (Pain Scale 7-10) 09/01/18 18:00 09/08/18 17:59 09/01/18 17:58 Pantoprazole (Protonix) 40 mg BID ORAL 08/27/18 14:15 09/26/18 14:14 09/06/18 08:21 Phenytoin (Dilantin) 100 mg Q8HR ORAL 08/31/18 14:00 09/25/18 12:59 09/06/18 06:16 Potassium Chloride (K-Dur) 30 meq DAILY ORAL 09/03/18 10:30 10/03/18 10:29 09/06/18 08:20 Pravastatin Sodium (Pravachol) 80 mg BEDTIME ORAL 08/26/18 21:00 09/19/18 20:59 09/05/18 21:00 Tamsulosin HCl (Flomax) 0.4 mg QHS ORAL 09/03/18 21:00 09/19/18 20:59 09/05/18 21:00 Vitamin B Complex/ Vit C/Folic Acid (Nephrovite) 1 tab DAILY ORAL 08/27/18 09:00 09/19/18 08:59 09/06/18 08:20 Hari Ogden MD Sep 06, 2018 13:16
--- NOTE | 2018-09-06 14:47 | NUR ---
NURSE NOTES: pt receiving blood at this time time no a/r no fever , pt tolerating well will monitor. bed in lowest position, locked
--- NOTE | 2018-09-06 15:02 | NUR ---
RD ASSESSMENT & RECOMMENDATIONS SEE CARE ACTIVITY FOR COMPLETE ASSESSMENT DAILY ESTIMATED NEEDS: Needs based on Renal 69kg adj 25-30 kcals/kg 4258-7505 total kcals 0.8-1.0 g protein/kg 55-69 g total protein Fluid per MD mL/kg total fluid mLs NUTRITION DIAGNOSIS: * Decreased sodium and phos needs r/t renal insufficiency, cardiac dx as evidenced by elev BUN (45), elev creat (3.9), elev BNP 47495, elev troponin, low K (3.3 -> wnl), elev Phos 5.6. * Chewing difficulty R/T edentulous status as evidenced by pt on mech soft chopped texture. CURRENT DIET:[facility] MED-> Now + Low Phos, mech soft chopped PO DIET RECOMMENDATIONS: LOW NA/ LOW PHOS/ [facility] MED (Texture as tolerated) ADDITIONAL RECOMMENDATIONS: 1) W/ PO intake consistently >50% -> rec LOW NA, [facility] MED diet Intake has now improved 2) Snacks TID in b/w meals 3) Monitor lytes w/ current renal status, need for dietary restriction 4) Calibrated bedscale wt or standing wt as able for accurate CBW 5) Monitor PO intake closely, encourage PO intake- variable PO 6) Consider appetite stimulant due to consistently poor/variable PO intake
[2018-09-06 15:43] VITALS: BP 140/60
--- NOTE | 2018-09-06 19:06 | NUR ---
HAND-OFF: Report given to INGRID VIRGEN. PT IN STABLE CONDITION, S/P 1 UPRBC, NO A/R . PT TOLERATED WELL.
--- NOTE | 2018-09-06 19:10 | NUR ---
NURSE NOTES: Received report from Karely Galicia RN. Patient in bed with HOB elevated at semi-fowlers with no complaints of acute pain or discomfort noted at this time. Kept clean, dry, and comfortable in bed. AAO X2 and is able to express needs and wants appropriately with no difficulty. IV line intact and patent SL. Placed on continuous cardiac monitoring per protocol. Noted Suprapubic catheter, with dark kermit urine present. No active bleeding and is patent and intact. Safety precaution in place; siderails X3 up, call light within reach, bed in lowest position, brakes and alarm on at all times. Needs and wants anticipated and attended. Will continue pllan of care and monitor for any changes noted.
[2018-09-06 20:00] VITALS: BP 166/76
[2018-09-06] MEDS: Tamsulosin 0.4mg cap ORAL SCH (21:15)
--- NOTE | 2018-09-06 23:15 | Progress Note ---
DATE: 09/05/2018 CARDIOLOGY PROGRESS NOTE SUBJECTIVE: The patient was seen and evaluated. Case discussed with Dr. Alejandro. The patient has no complaints. He has not had any chest pain or shortness of breath. No hematuria is noted. Coagulopathy has improved with transfusion. OBJECTIVE: VITAL SIGNS: Blood pressure 164/77, pulse 62, respiratory rate 19, temperature 99. LUNGS: Clear. CARDIAC: Regular. Normal S1, S2 with a fourth heart sound and a 1/6 systolic apical murmur. ABDOMEN: Soft. No focal tenderness. No guarding. No rebound. Suprapubic catheter in place. EXTREMITIES: Trace edema. LABORATORY DATA: White count 13, hemoglobin 8.4, platelet count 237,000. INR 1.2. Potassium 3.6, magnesium 2.0, albumin 1.8. IMPRESSION: 1. Acute DVT. 2. Acute myocardial infarction. 3. Acute on chronic systolic and diastolic congestive heart failure. 4. Acute on chronic renal failure. 5. Obstructive uropathy, status post suprapubic catheter. 6. Severe protein-calorie malnutrition. 7. Coagulopathy. 8. Hematuria. 9. Anemia. PLAN: IVC filter placement. Blood product transfusions as needed based on clinical parameters. Cautious diuresis based on clinical parameters. Titrate antifailure and antianginal regimen. Eric Brown M.D. DR: Isra JOB#: [id number] CC:
[2018-09-07] VITALS: BP 152/86
--- NOTE | 2018-09-07 02:00 | NUR ---
NURSE NOTES: Patient in bed asleep with no S/S of distress at this time. Will continue to monitor
--- NOTE | 2018-09-07 03:45 | Progress Note ---
DATE: 09/06/2018 SUBJECTIVE: The patient has no complaints. Urine is darker. IVC filter was placed yesterday without complications. Blood pressure parameters have improved. PHYSICAL EXAMINATION: VITAL SIGNS: Blood pressure 130/50, pulse 78, respirations 20, and temperature 98 degrees. LUNGS: Clear. CARDIAC: Regular. ABDOMEN: Soft. EXTREMITIES: Positive edema of lower extremities. LABORATORY AND DIAGNOSTIC DATA: White count 14 and hemoglobin 7.3. Potassium 3.9, BUN 45, and creatinine 3.9. Albumin 1.7. IMPRESSION: 1. Acute myocardial infarction. 2. Acute on chronic systolic and diastolic congestive heart failure. 3. Acute DVT, status post IVC filter. 4. Anemia. 5. Coagulopathy. 6. Bilateral hydronephrosis, status post suprapubic catheter. PLAN: 1. May need to transfuse. 2. Recheck hemoglobin and INR. 3. Check drug levels. 4. Maintain current cardiovascular regimen in blood for the antianginal benefits and blood pressure control. 5. No anti-platelet or anticoagulant therapy at this time. Remains high-risk. Still unable to discharge due to drop in hemoglobin level. Eric Brown M.D. DR: Pepito JOB#: [id number] CC:
[2018-09-07 04:00] VITALS: BP 180/86
[2018-09-07] MEDS: cloNIDine 0.2mg Tab ORAL SCH ×3 (05:29→21:37)
[2018-09-07] MEDS: Phenytoin 100mg cap ORAL SCH ×3 (05:29→21:36)
[2018-09-07] MEDS: HydrALAZINE 50mg tab ORAL SCH ×3 (05:29→21:37)
[2018-09-07] MEDS: NovoLOG Insulin Flexpen SUBQ SCH ×4 (05:29→21:38)
--- NOTE | 2018-09-07 06:43 | NUR ---
NURSE NOTES: Attempted to insert new IV access X1, patient refused. Explained risks and benefits but still refused. CN aware, will continue to monitor.
--- NOTE | 2018-09-07 07:50 | NUR ---
NURSE NOTES: Report received from PARAM Alonso. Patient AOx2. In RA. Denies any SOB or any pain. Reoriented Pt. to situation. Pt. has no IV, refused to have one at this time. FC intact and draining dark kermit urine. Dr. Alejandro notified. Suprapubic site dry and intact. Bed on lowest position, brakes engaged, side rails upx2, alarm on. Call light within easy reach.
--- NOTE | 2018-09-07 07:50 | NUR ---
HAND-OFF: Report given to Nemera. Debra VIRGEN. Patient in bed asleep with no S/S of distress noted. Endorsed plan of care.
[2018-09-07 08:00] VITALS: BP 164/83
[2018-09-07 08:24] LABS: HEMATOCRIT 28.5 % (42.0-52.0); HEMOGLOBIN 9.5 G/DL (14.2-18.0); LYMPHOCYTES % (AUTO) 8.9 % (20.0-45.0); MEAN CORPUSCULAR VOLUME 87 FL (80-99); MONOCYTES % (AUTO) 7.7 % (1.0-10.0); NEUTROPHILS % (AUTO) 78.4 % (45.0-75.0); PLATELET COUNT 297 K/UL (150-450); RED BLOOD COUNT 3.26 M/UL (4.70-6.10); RED CELL DISTRIBUTION WIDTH 16.2 % (11.6-14.8); WHITE BLOOD COUNT 12.1 K/UL (4.8-10.8)
--- NOTE | 2018-09-07 08:30 | General Progress Note ---
Assessment/Plan Problem List: (1) Acute renal insufficiency ICD Codes: N28.9 - Disorder of kidney and ureter, unspecified SNOMED: 15242315 (2) Leukocytosis ICD Codes: D72.829 - Elevated white blood cell count, unspecified SNOMED: 398688018 (3) Hematuria, gross ICD Codes: R31.0 - Gross hematuria SNOMED: 979489518 (4) Prostate hypertrophy ICD Codes: N40.0 - Benign prostatic hyperplasia without lower urinary tract symptoms SNOMED: 836230315 (5) UTI (urinary tract infection) ICD Codes: N39.0 - Urinary tract infection, site not specified SNOMED: 53145034 (6) Urethral stricture SNOMED: 26424539 (7) AMI (acute myocardial infarction) ICD Codes: I21.9 - Acute myocardial infarction, unspecified SNOMED: 41854172 Status: stable, progressing Assessment/Plan: suprapubic catheter to gravity cautious antiplt rx BP rx follow up pending labs transfuse as needed dc planning today if labs ok and cleared by consultants Subjective ROS Limited/Unobtainable: No Constitutional: Reports: malaise, weakness HEENT: Reports: no symptoms Cardiovascular: Reports: no symptoms Respiratory: Reports: no symptoms Gastrointestinal/Abdominal: Reports: no symptoms Genitourinary: Reports: no symptoms Neurologic/Psychiatric: Reports: anxiety, emotional problems Endocrine: Reports: no symptoms Hematologic/Lymphatic: Reports: anemia Allergies: Coded Allergies: NO KNOWN DRUG ALLERGIES (Unverified Allergy, Unknown, 04/11/14) All Systems: reviewed and negative except above Subjective s/p 1 unit prbcs yesterday. no bleeding noted. brownish color urine in weathers bag. Objective Last 24 Hour Vital Signs Date Time Temp Pulse Resp B/P (MAP) Pulse Ox O2 Delivery O2 Flow Rate FiO2 09/07/18 05:29 180/86 09/07/18 05:29 180/86 09/07/18 04:00 65 09/07/18 04:00 97.8 71 18 180/86 (117) 96 09/07/18 00:00 96.6 70 18 152/86 (108) 96 09/07/18 00:00 65 09/06/18 22:22 153/67 09/06/18 22:21 153/67 09/06/18 21:15 74 166/76 09/06/18 21:00 Room Air 09/06/18 20:00 97.6 74 20 166/76 (106) 96 09/06/18 20:00 67 09/06/18 17:13 70 140/78 09/06/18 15:43 97.0 70 20 140/60 (86) 98 09/06/18 15:28 67 09/06/18 14:17 128/78 09/06/18 13:16 120/70 09/06/18 12:00 97.0 78 20 119/55 (76) 98 09/06/18 11:45 64 09/06/18 09:00 Room Air Intake and Output 09/06/18 09/07/18 19:00 07:00 Intake Total 800 ml Output Total 400 ml 500 ml Balance 400 ml -500 ml Intake Oral 800 ml Output Urine Total 400 ml 500 ml Laboratory Tests 09/06/18 08:50: Prothrombin Time 10.8, Prothromb Time International Ratio 1.0 09/07/18 07:50: Prothrombin Time [Pending], Prothromb Time International Ratio [Pending], White Blood Count [Pending], Red Blood Count [Pending], Hemoglobin [Pending], Hematocrit [Pending], Mean Corpuscular Volume [Pending], Mean Corpuscular Hemoglobin [Pending], Mean Corpuscular Hemoglobin Concent [Pending], Red Cell Distribution Width [Pending], Platelet Count [Pending], Mean Platelet Volume [ Pending], Neutrophils (%) (Auto) [Pending], Lymphocytes (%) (Auto) [Pending], Monocytes (%) (Auto) [Pending], Eosinophils (%) (Auto) [Pending], Basophils (%) (Auto) [Pending] Height (Feet): 5 Height (Inches): 6.00 Weight (Pounds): 175 Objective General Appearance: WD/WN, alert Neck: supple Cardiovascular: normal rate, regular rhythm Respiratory/Chest: chest wall non-tender, lungs - rhonchi and wheezes Abdomen: normal bowel sounds, non tender, soft, no organomegaly Edema: 1+ edema Anthony Alejandro MD Sep 07, 2018 08:30
[2018-09-07 08:35] LABS: INR 0.9 (0.9-1.1)
[2018-09-07] MEDS: Levodopa/Carbidopa 25/100 tab ORAL SCH ×3 (09:51→17:42)
[2018-09-07] MEDS: Docusate 100mg cap ORAL SCH ×3 (09:53→17:41)
[2018-09-07] MEDS: Aspirin Baby 81mg ORAL SCH (09:53)
[2018-09-07] MEDS: Nuedexta Capsule 20/10mg ORAL SCH ×2 (09:53→21:32)
[2018-09-07] MEDS: Citalopram Hydrobromide 10mg Tab ORAL SCH (09:53)
[2018-09-07] MEDS: Donepezil 10mg tab ORAL SCH (09:54)
[2018-09-07] MEDS: Nephrovite tab (Rena-Vite) ORAL SCH (09:54)
[2018-09-07] MEDS: Carvedilol 25mg Tab ORAL SCH ×2 (10:03→21:35)
[2018-09-07] MEDS: Imdur 30mg tab ORAL SCH (10:03)
[2018-09-07 12:00] VITALS: BP 141/83
[2018-09-07 12:38] LABS: ALANINE AMINOTRANSFERASE 7 U/L (12-78); ALBUMIN 1.8 G/DL (3.4-5.0); ALBUMIN/GLOBULIN RATIO 0.4 (1.0-2.7); ALKALINE PHOSPHATASE 158 U/L (46-116); ANION GAP 16 mmol/L (5-15); ASPARTATE AMINO TRANSFERASE 24 U/L (15-37); BILIRUBIN,TOTAL 0.3 MG/DL (0.2-1.0); BLOOD UREA NITROGEN 42 mg/dL (7-18); CALCIUM 7.4 MG/DL (8.5-10.1); CARBON DIOXIDE 18 MMOL/L (21-32); CHLORIDE 97 MMOL/L (98-107); CREATININE 3.6 MG/DL (0.55-1.30); POTASSIUM 4.4 MMOL/L (3.5-5.1); SODIUM 131 MMOL/L (136-145)
--- NOTE | 2018-09-07 13:22 | Nephrology Progress Note ---
Assessment/Plan Problem List: (1) Renal failure (ARF), acute on chronic (2) Prostate hypertrophy (3) Bilateral hydronephrosis (4) Urethral stricture (5) UTI (urinary tract infection) (6) Elevated troponin I level (7) Cardiomyopathy (8) Hypertensive kidney disease Assessment Acute on chronic renal failure Likely Diabetic Nephrosclerosis urinary retention on bladder scan Anemia of CKD Proteinuria / HypoAlbuminemia likely due to DM BPH HTN Parkinsons bilateral hydro elevated troponin Plan Cr lowering CR 3.4 ON ADMISSION- PEAKED TO 4.2 NOW DOWN TO 3.6 HAS IVC FILTER NOW Crcl # 1 is error worsening anemia - bleeding via suprapubic cath Patient need to have an IVC filter to stop further anticoagulation treatment and in my opinion this is an emergency had cysto and supra pubic 09/01 24 h urine Cr Cl and protein ? Transfuse as needed recheck labs in am- transfuse as needed gastric support optimize cardiac status DC cogentin due to retention adjust BP meds Po Bicitra Kidney TONY noted bilateral hydro Uro intervention adjust BP meds Anemia potts check Uric Acid Urine studies up dose flomax per orders check dialntin level Left ventricular lazo in the basal regions are contracted normally however the apical segments are akinetic, 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 Mild left ventricular enlargement. Subjective ROS Limited/Unobtainable: No Constitutional: Reports: other - stronger Objective Objective Last 24 Hour Vital Signs Date Time Temp Pulse Resp B/P (MAP) Pulse Ox O2 Delivery O2 Flow Rate FiO2 09/07/18 12:00 97.0 66 18 141/83 (102) 97 09/07/18 10:03 71 164/83 09/07/18 10:03 71 164/83 09/07/18 10:03 164/83 09/07/18 09:00 Room Air 09/07/18 08:00 97.4 71 18 164/83 (110) 97 09/07/18 08:00 66 09/07/18 05:29 180/86 09/07/18 05:29 180/86 09/07/18 04:00 65 09/07/18 04:00 97.8 71 18 180/86 (117) 96 09/07/18 00:00 96.6 70 18 152/86 (108) 96 09/07/18 00:00 65 09/06/18 22:22 153/67 09/06/18 22:21 153/67 09/06/18 21:15 74 166/76 09/06/18 21:00 Room Air 09/06/18 20:00 97.6 74 20 166/76 (106) 96 09/06/18 20:00 67 09/06/18 17:13 70 140/78 09/06/18 15:43 97.0 70 20 140/60 (86) 98 09/06/18 15:28 67 09/06/18 14:17 128/78 Intake and Output 09/06/18 09/07/18 19:00 07:00 Intake Total 800 ml Output Total 400 ml 500 ml Balance 400 ml -500 ml Intake Oral 800 ml Output Urine Total 400 ml 500 ml Laboratory Tests 09/07/18 07:50: White Blood Count 12.1H, Red Blood Count 3.26L, Hemoglobin 9.5#L, Hematocrit 28.5#L, Mean Corpuscular Volume 87, Mean Corpuscular Hemoglobin 29.2, Mean Corpuscular Hemoglobin Concent 33.4, Red Cell Distribution Width 16.2H, Platelet Count 297, Mean Platelet Volume 5.2L, Neutrophils (%) (Auto) 78.4H, Lymphocytes (%) (Auto) 8.9L, Monocytes (%) (Auto) 7.7, Eosinophils (%) (Auto) 4.0H, Basophils (%) (Auto) 1.0, Prothrombin Time 10.1, Prothromb Time International Ratio 0.9, Sodium Level 131L, Potassium Level 4.4, Chloride Level 97L, Carbon Dioxide Level 18L, Anion Gap 16H, Blood Urea Nitrogen 42H, Creatinine 3.6H, Estimat Glomerular Filtration Rate , Glucose Level 130H, Calcium Level 7.4L, Total Bilirubin 0.3, Aspartate Amino Transf (AST/SGOT) 24, Alanine Aminotransferase (ALT/SGPT) 7L, Alkaline Phosphatase 158H, Total Protein 6.5, Albumin 1.8L, Globulin 4.7, Albumin/Globulin Ratio 0.4L Height (Feet): 5 Height (Inches): 6.00 Weight (Pounds): 175 General Appearance: no apparent distress Respiratory/Chest: decreased breath sounds Abdomen: soft Genitourinary/Rectal: other - supra pubic Objective no change Sukhdeep Rodriguez MD Sep 07, 2018 13:22
--- NOTE | 2018-09-07 14:54 | Pulmonology Progress Note ---
Assessment/Plan Assessment/Plan Pulmonary Progress Note HPI: The patient is a 73-year-old male admitted with urinary retention, acute renal failure. He has a history of hypertensive heart disease, BPH, seizure disorder. On initial evaluation, there was a concern about possible urinary retention, noted to have evidence of UTI. The patient had an elevated creatinine on admission. Noted to have features of Taketsubo's cardiomyopathy on Echo, patchy infiltrates on CXR No new complaints Assessment/Plan 1. Acute renal failure. 2. UTI 3. BPH. 4. Hypertension. 5. Seizure Disorder 6. Anemia 7. Likely pulmonary edema 8. Taketsubo Cardiomyopathy 9. Dementia PLAN diurese as able still with some edema on cxr oxygen as needed monitor imaging and labs later this week repeat cxr reviewed respiratory care follow up exam cards follow up for optimization oxygen needs reviewed impression, plan, and exam edited and reviewed in detail care discussed with RN Subjective Allergies: Coded Allergies: NO KNOWN DRUG ALLERGIES (Unverified Allergy, Unknown, 04/11/14) Subjective events noted comfortable no distress and alert Objective Vital Signs Noted Objective WDWN NAD clear breath sounds bilaterally without rhonchi or wheeze [id number] without MRG NABS nontender no HSM no CC mild edema nonfocal reviewed and edited Laboratory Tests 09/01/18 08:55: White Blood Count 10.9H, Red Blood Count 3.68L, Hemoglobin 10.9L, Hematocrit 32.9L, Mean Corpuscular Volume 89, Mean Corpuscular Hemoglobin 29.7, Mean Corpuscular Hemoglobin Concent 33.3, Red Cell Distribution Width 14.1, Platelet Count 335, Mean Platelet Volume 5.1L, Neutrophils (%) (Auto) 76.0H, Lymphocytes (%) (Auto) 10.9L, Monocytes (%) (Auto) 9.3, Eosinophils (%) (Auto) 2.7, Basophils (%) (Auto) 1.1, Prothrombin Time 26.7H, Prothromb Time International Ratio 2.7H, Activated Partial Thromboplast Time 49H, Sodium Level 140, Potassium Level 3.5, Chloride Level 103, Carbon Dioxide Level 19L, Anion Gap 19H , Blood Urea Nitrogen 42H, Creatinine 3.6H, Estimat Glomerular Filtration Rate , Glucose Level 122H, Uric Acid 6.9, Calcium Level 7.9L, Phosphorus Level 4.5, Magnesium Level 1.8, Total Bilirubin 0.3, Aspartate Amino Transf (AST/SGOT) 23, Alanine Aminotransferase (ALT/SGPT) < 6L, Alkaline Phosphatase 122H, C-Reactive Protein, Quantitative 8.0H, Pro-B-Type Natriuretic Peptide > 26287W, Total Protein 7.0, Albumin 1.9L, Globulin 5.1, Albumin/Globulin Ratio 0.4L Current Medications Medications (Trade) Dose Ordered Sig/Thu Route PRN Reason Start Time Stop Time Status Last Admin Dose Admin Acetaminophen (Tylenol) 650 mg Q6H PRN ORAL For Pain 08/26/18 12:30 09/18/18 12:29 Acetaminophen/ Hydrocodone Bitart (Marshall 5/325) 1 tab Q1H PRN ORAL Mild Pain (Pain Scale 1-3) 09/01/18 12:00 09/01/18 20:00 Acetaminophen/ Hydrocodone Bitart (Marshall 7.5/325) 1 tab Q1H PRN ORAL Moderate Pain (Pain Scale 4-6) 09/01/18 12:00 09/01/18 20:00 Al Hydroxide/Mg Hydroxide (Mylanta) 15 ml Q1H PRN ORAL gi upset 09/01/18 12:00 09/01/18 20:00 Amlodipine Besylate (Norvasc) 5 mg BID ORAL 08/30/18 18:00 09/27/18 13:59 08/31/18 17:13 Aspirin (ASA) 81 mg DAILY ORAL 08/27/18 09:00 09/26/18 08:59 08/31/18 09:45 Atropine Sulfate (Atropine 0.4mg/ ml) 0.5 mg Q5M PRN IVP HR<40 09/01/18 12:00 09/01/18 20:00 Carbidopa/Levodopa (Sinemet 25/100) 1 tab THREE TIMES A DAY ORAL 08/26/18 13:00 09/19/18 08:59 08/31/18 17:13 Carvedilol (Coreg) 25 mg EVERY 12 HOURS ORAL 08/30/18 09:00 09/29/18 08:59 08/31/18 21:21 Citalopram Hydrobromide (celeXA) 20 mg DAILY ORAL 08/27/18 09:00 09/19/18 08:59 08/31/18 09:46 Clonidine HCl (Catapres tab) 0.2 mg EVERY 8 HOURS ORAL 08/30/18 22:00 09/19/18 00:00 09/01/18 05:33 Dextromethorphan/ Quinidine (Nuedexta Capsule) 1 cap Q12HR ORAL 08/26/18 21:00 09/19/18 08:59 08/31/18 21:21 Dextrose (Dextrose 50%) 25 ml Q30M PRN IV Hypoglycemia 08/26/18 12:15 09/18/18 22:44 Dextrose (Dextrose 50%) 50 ml Q30M PRN IV Hypoglycemia 08/26/18 12:15 09/18/18 22:44 Diphenhydramine HCl (Benadryl) 25 mg Q15M PRN IVP Itching 09/01/18 12:00 09/01/18 20:00 Docusate Sodium (Colace) 100 mg TID ORAL 08/26/18 13:00 09/19/18 08:59 08/31/18 17:13 Donepezil HCl (Aricept) 10 mg DAILY ORAL 08/27/18 09:00 09/19/18 08:59 08/31/18 09:45 Epoetin Zaid (Epoetin Zaid-EPBX(NON ESRD)) 10,000 unit SUBQ 08/29/18 21:00 09/28/18 20:59 08/31/18 21:20 Fentanyl Citrate (Sublimaze 100 mcg/2 mL) 25 mcg Q10M PRN IV Moderate Pain (Pain Scale 4-6) 09/01/18 12:00 09/01/18 20:00 Finasteride (Proscar) 5 mg DAILY ORAL 08/27/18 09:00 09/19/18 08:59 08/31/18 09:46 Hydralazine HCl (Apresoline) 5 mg Q30M PRN IV SBP>160 / DBP>90 09/01/18 12:00 09/01/18 20:00 Hydralazine HCl (Apresoline) 25 mg Q4H PRN ORAL bp over 160 syst 08/28/18 14:00 09/27/18 13:59 Hydralazine HCl (Apresoline) 100 mg Q8HR ORAL 08/29/18 06:00 09/28/18 05:59 09/01/18 05:34 Hydromorphone HCl (Dilaudid) 0.5 mg Q15M PRN IVP Severe Pain (Pain Scale 7-10) 09/01/18 12:00 09/01/18 20:00 Insulin Aspart (NovoLOG) BEFORE MEALS AND HS SUBQ 08/26/18 16:30 09/19/18 06:29 09/01/18 05:34 Isosorbide Mononitrate (Imdur) 60 mg DAILY ORAL 08/30/18 09:00 09/29/18 08:59 08/31/18 09:45 Lactated Ringer's 1,000 ml @ 10 mls/hr Q24H IVLG 09/01/18 11:49 09/01/18 13:48 Lorazepam (Ativan 2mg/ml 1ml) 1 mg Q15M PRN IV For Anxiety 09/01/18 12:00 09/01/18 20:00 Lorazepam (Ativan 2mg/ml 1ml) 2 mg Q2H PRN IV For Anxiety 08/26/18 12:15 09/02/18 10:14 Midazolam HCl (Versed 2mg/2ml vial) 1 mg Q15M PRN IVP For Anxiety 09/01/18 12:00 09/01/18 20:00 Nitroglycerin (Ntg) 1 patch Q24H TDERMAL 08/27/18 15:00 09/26/18 14:59 08/31/18 13:51 Oxycodone/ Acetaminophen (Percocet 5-325) 1 tab Q1H PRN ORAL Severe Pain (Pain Scale 7-10) 09/01/18 12:00 09/01/18 20:00 Pantoprazole (Protonix) 40 mg BID ORAL 08/27/18 14:15 09/26/18 14:14 08/31/18 17:13 Phenytoin (Dilantin) 100 mg Q8HR ORAL 08/31/18 14:00 09/25/18 12:59 09/01/18 05:33 Piperacillin Sod/ Tazobactam Sod 3.375 gm/Sodium Chloride 110 ml @ 27.5 mls/hr Q12H IVPB 08/26/18 13:00 09/05/18 12:59 09/01/18 00:13 Pravastatin Sodium (Pravachol) 80 mg BEDTIME ORAL 08/26/18 21:00 09/19/18 20:59 08/31/18 21:20 Sodium Citrate (Bicitra) 30 ml BID ORAL 08/31/18 18:00 09/30/18 17:59 08/31/18 17:13 Tamsulosin HCl (Flomax) 0.4 mg BID ORAL 08/26/18 18:00 09/19/18 20:59 08/31/18 17:13 Vitamin B Complex/ Vit C/Folic Acid (Nephrovite) 1 tab DAILY ORAL 08/27/18 09:00 09/19/18 08:59 08/31/18 09:45 Subjective ROS Limited/Unobtainable: No Allergies: Coded Allergies: NO KNOWN DRUG ALLERGIES (Unverified Allergy, Unknown, 04/11/14) Objective Last 24 Hour Vital Signs Date Time Temp Pulse Resp B/P (MAP) Pulse Ox O2 Delivery O2 Flow Rate FiO2 09/07/18 14:13 141/83 09/07/18 14:12 141/83 09/07/18 12:00 97.0 66 18 141/83 (102) 97 09/07/18 12:00 60 09/07/18 10:03 71 164/83 09/07/18 10:03 71 164/83 09/07/18 10:03 164/83 09/07/18 09:00 Room Air 09/07/18 08:00 97.4 71 18 164/83 (110) 97 09/07/18 08:00 66 09/07/18 05:29 180/86 09/07/18 05:29 180/86 09/07/18 04:00 65 09/07/18 04:00 97.8 71 18 180/86 (117) 96 09/07/18 00:00 96.6 70 18 152/86 (108) 96 09/07/18 00:00 65 09/06/18 22:22 153/67 09/06/18 22:21 153/67 09/06/18 21:15 74 166/76 09/06/18 21:00 Room Air 09/06/18 20:00 97.6 74 20 166/76 (106) 96 09/06/18 20:00 67 09/06/18 17:13 70 140/78 09/06/18 15:43 97.0 70 20 140/60 (86) 98 09/06/18 15:28 67 Intake and Output 09/06/18 09/07/18 19:00 07:00 Intake Total 800 ml Output Total 400 ml 500 ml Balance 400 ml -500 ml Intake Oral 800 ml Output Urine Total 400 ml 500 ml Laboratory Tests 09/07/18 07:50: White Blood Count 12.1H, Red Blood Count 3.26L, Hemoglobin 9.5#L, Hematocrit 28.5#L, Mean Corpuscular Volume 87, Mean Corpuscular Hemoglobin 29.2, Mean Corpuscular Hemoglobin Concent 33.4, Red Cell Distribution Width 16.2H, Platelet Count 297, Mean Platelet Volume 5.2L, Neutrophils (%) (Auto) 78.4H, Lymphocytes (%) (Auto) 8.9L, Monocytes (%) (Auto) 7.7, Eosinophils (%) (Auto) 4.0H, Basophils (%) (Auto) 1.0, Prothrombin Time 10.1, Prothromb Time International Ratio 0.9, Sodium Level 131L, Potassium Level 4.4, Chloride Level 97L, Carbon Dioxide Level 18L, Anion Gap 16H, Blood Urea Nitrogen 42H, Creatinine 3.6H, Estimat Glomerular Filtration Rate , Glucose Level 130H, Calcium Level 7.4L, Total Bilirubin 0.3, Aspartate Amino Transf (AST/SGOT) 24, Alanine Aminotransferase (ALT/SGPT) 7L, Alkaline Phosphatase 158H, Total Protein 6.5, Albumin 1.8L, Globulin 4.7, Albumin/Globulin Ratio 0.4L Current Medications Medications (Trade) Dose Ordered Sig/Thu Route PRN Reason Start Time Stop Time Status Last Admin Dose Admin Acetaminophen (Tylenol) 650 mg Q6H PRN ORAL For Pain 08/26/18 12:30 09/18/18 12:29 Amlodipine Besylate (Norvasc) 5 mg BID ORAL 08/30/18 18:00 09/27/18 13:59 09/07/18 10:03 Aspirin (ASA) 81 mg DAILY ORAL 08/27/18 09:00 09/26/18 08:59 09/07/18 09:53 Carbidopa/Levodopa (Sinemet 25/100) 1 tab THREE TIMES A DAY ORAL 08/26/18 13:00 09/19/18 08:59 09/07/18 12:52 Carvedilol (Coreg) 25 mg EVERY 12 HOURS ORAL 08/30/18 09:00 09/29/18 08:59 09/07/18 10:03 Citalopram Hydrobromide (celeXA) 20 mg DAILY ORAL 08/27/18 09:00 09/19/18 08:59 09/07/18 09:53 Clonidine HCl (Catapres tab) 0.2 mg EVERY 8 HOURS ORAL 08/30/18 22:00 09/19/18 00:00 09/07/18 14:13 Dextromethorphan/ Quinidine (Nuedexta Capsule) 1 cap Q12HR ORAL 08/26/18 21:00 09/19/18 08:59 09/07/18 09:53 Dextrose (Dextrose 50%) 25 ml Q30M PRN IV Hypoglycemia 08/26/18 12:15 09/18/18 22:44 Dextrose (Dextrose 50%) 50 ml Q30M PRN IV Hypoglycemia 08/26/18 12:15 09/18/18 22:44 Docusate Sodium (Colace) 100 mg TID ORAL 08/26/18 13:00 09/19/18 08:59 09/07/18 12:52 Donepezil HCl (Aricept) 10 mg DAILY ORAL 08/27/18 09:00 09/19/18 08:59 09/07/18 09:54 Epoetin Zaid (Epoetin Zaid-EPBX(NON ESRD)) 10,000 unit WED-WED-WED SUBQ 08/29/18 21:00 09/28/18 20:59 09/05/18 21:00 Finasteride (Proscar) 5 mg DAILY ORAL 08/27/18 09:00 09/19/18 08:59 09/07/18 09:54 Hydralazine HCl (Apresoline) 25 mg Q4H PRN ORAL bp over 160 syst 08/28/18 14:00 09/27/18 13:59 09/05/18 04:41 Hydralazine HCl (Apresoline) 100 mg Q8HR ORAL 08/29/18 06:00 09/28/18 05:59 09/07/18 14:12 Insulin Aspart (NovoLOG) BEFORE MEALS AND HS SUBQ 08/26/18 16:30 09/19/18 06:29 09/07/18 12:23 Isosorbide Mononitrate (Imdur) 60 mg DAILY ORAL 08/30/18 09:00 09/29/18 08:59 09/07/18 10:03 Morphine Sulfate (Morphine Sulfate) 1 mg Q2H PRN IVP Breakthrough Pain 09/01/18 18:00 09/08/18 17:59 09/04/18 18:13 Oxycodone/ Acetaminophen (Percocet 5-325) 1 tab Q6H PRN ORAL Severe Pain (Pain Scale 7-10) 09/01/18 18:00 09/08/18 17:59 09/01/18 17:58 Pantoprazole (Protonix) 40 mg BID ORAL 08/27/18 14:15 09/26/18 14:14 09/07/18 10:12 Phenytoin (Dilantin) 100 mg Q8HR ORAL 08/31/18 14:00 09/25/18 12:59 09/07/18 14:13 Pravastatin Sodium (Pravachol) 80 mg BEDTIME ORAL 08/26/18 21:00 09/19/18 20:59 09/06/18 21:16 Tamsulosin HCl (Flomax) 0.4 mg QHS ORAL 09/03/18 21:00 09/19/18 20:59 09/06/18 21:15 Vitamin B Complex/ Vit C/Folic Acid (Nephrovite) 1 tab DAILY ORAL 08/27/18 09:00 09/19/18 08:59 09/07/18 09:54 Eric Pettit MD Sep 07, 2018 14:54
[2018-09-07 16:00] VITALS: BP 140/66
--- NOTE | 2018-09-07 19:27 | NUR ---
HAND-OFF: Report given to PARAM Metz. Patient in stable condition. No S/S of bleeding observed.
--- NOTE | 2018-09-07 19:30 | NUR ---
NURSE NOTES: Received patient from Debra Garcia RN. patient is A/O x2, and verbally responsive to commands. no s/sx of pain at this time. patient is on room air. no s/sx of respiratory distress at this time. suprapubic site is dry and intact. FC is patent, draining and intact. No IV access at this time. bed in lowest position and locked, padded siderails up X2, call light within reach. will continue to monitor.
[2018-09-07 20:00] VITALS: BP 149/69
--- NOTE | 2018-09-07 20:00 | NUR ---
NURSE NOTES: patient refused IV at this time. will continue to monitor.
[2018-09-07] MEDS: Tamsulosin 0.4mg cap ORAL SCH (21:31)
[2018-09-07] MEDS: Epoetin Alfa-EPBX (NON ESRD)10,000 unit/ml vial SUBQ SCH (21:36)
[2018-09-08] VITALS: BP 135/68
[2018-09-08 04:00] VITALS: BP 129/67
--- NOTE | 2018-09-08 05:15 | Progress Note ---
DATE: 09/07/2018 CARDIOLOGY PROGRESS NOTE SUBJECTIVE: The patient remains with suprapubic catheter. Urine remains brown-red. Packed red cell transfusion was given yesterday. The patient has no chest pain or shortness of breath. OBJECTIVE: VITAL SIGNS: Blood pressure 153/67 to 180/86, heart rate 65 to 71, respiratory rate 18, and afebrile. LUNGS: Clear. CARDIAC: Regular. Normal S1, S2. A 1/6 systolic apical murmur. ABDOMEN: Soft. EXTREMITIES: No edema. LABORATORY DATA: White count 12, hemoglobin 9.5, platelets 297,000. Sodium 131, potassium 4.4, bicarbonate 18, BUN 43, creatinine 2.6, albumin 1.8. IMPRESSION: 1. Acute myocardial infarction. 2. Acute on chronic systolic and diastolic congestive heart failure. 3. Severe protein-calorie malnutrition. 4. Acute on chronic renal failure. 5. Anemia. 6. Hematuria. 7. Acute DVT, status post IVC filter. 8. Hypertensive heart disease with labile blood pressure. PLAN: 1. Continue to monitor hemoglobin. 2. Transfuse as needed. 3. Advance antihypertensives. 4. Periodic diuresis based on clinical parameters. Amy Andrews JOB#: [id number] CC:
[2018-09-08] MEDS: HydrALAZINE 50mg tab ORAL SCH ×3 (06:02→22:36)
[2018-09-08] MEDS: Phenytoin 100mg cap ORAL SCH ×3 (06:03→22:37)
[2018-09-08] MEDS: cloNIDine 0.2mg Tab ORAL SCH ×3 (06:03→22:36)
[2018-09-08] MEDS: NovoLOG Insulin Flexpen SUBQ SCH ×4 (06:04→21:00)
--- NOTE | 2018-09-08 07:10 | NUR ---
NURSE NOTES: Report received from PARAM Metz. Patient sleeping comfortably, HOB on 45. Easily awakened by name. Denies any pain or SOB. IV R hand 24g, SL. Refused assessment of surgical site at this time. San intact and draining light yellow urine. No signs of bleeding observed at this time. Bed on lowest position, side rails upx2, brakes engaged, alarm on. Call light within easy reach.
--- NOTE | 2018-09-08 07:32 | NUR ---
HAND-OFF: Report given to PARAM Doyle. patient is in stable condition.
[2018-09-08 08:00] VITALS: BP 140/70
[2018-09-08] MEDS ORDERED: ASPIRIN81 MG ORAL (09:01)
[2018-09-08] MEDS ORDERED: APRESOLINE50 MG ORAL (09:01)
[2018-09-08] MEDS ORDERED: NOVOLOG100 UNITS1 SUBQ (09:01)
[2018-09-08] MEDS ORDERED: ISOSORBIDE MONO30 M1 ORAL (09:01)
[2018-09-08] MEDS ORDERED: COREG25 MG ORAL (09:01)
[2018-09-08] MEDS ORDERED: RETACRIT10000 UNIT SUBQ (09:01)
[2018-09-08] MEDS: Carvedilol 25mg Tab ORAL SCH ×2 (09:16→21:11)
[2018-09-08] MEDS: Citalopram Hydrobromide 10mg Tab ORAL SCH (09:17)
[2018-09-08] MEDS: Aspirin Baby 81mg ORAL SCH (09:17)
[2018-09-08] MEDS: Levodopa/Carbidopa 25/100 tab ORAL SCH ×3 (09:17→17:50)
[2018-09-08] MEDS: Docusate 100mg cap ORAL SCH ×3 (09:17→17:50)
[2018-09-08] MEDS: Nephrovite tab (Rena-Vite) ORAL SCH (09:17)
[2018-09-08] MEDS: Donepezil 10mg tab ORAL SCH (09:17)
[2018-09-08] MEDS: Imdur 30mg tab ORAL SCH (09:18)
[2018-09-08] MEDS: Nuedexta Capsule 20/10mg ORAL SCH ×2 (09:18→21:11)
--- NOTE | 2018-09-08 09:45 | Discharge Summary ---
DATE OF ADMISSION: 08/19/2018 DATE OF DISCHARGE: 09/08/2018 ADMISSION DIAGNOSES: 1. Acute renal failure. 2. Urinary retention. 3. History of encephalopathy and psychosis. 4. History of BPH and urethral stricture . 5. Hypertension. 6. Hyperlipidemia. 7. Seizure disorder. DISCHARGE DIAGNOSES: 1. Acute renal failure. 2. Urinary retention. 3. History of encephalopathy and psychosis. 4. History of BPH and urethral stricture . 5. Hypertension. 6. Hyperlipidemia. 7. Seizure disorder. 8. Acute myocardial infarction. 9. Takotsubo cardiomyopathy. 10. Hematuria. 11. Status post suprapubic catheter. HOSPITAL COURSE: The patient is a 73-year-old male with multiple medical problems, who presented with complaints of inability to urinate. In the emergency room, he was seen by the ER physician as well as urologist. Attempts at placing a San catheter were unsuccessful because of a stricture and because of noncompliance from the patient. He was admitted. He was able to void small amounts. He developed progressive worsening of renal failure with worsening hydronephrosis on the ultrasound. He was hydrated aggressively. He was placed on Flomax and Proscar regardless though his urinary retention did not improve. Eventually, the patient became agreeable. Because of worsening renal function, it was felt that the patient need to emergently undergo cystoscopy with suprapubic catheter placement. He underwent this without complication. His hospital course was complicated by hypotension and hypoxemia. He had elevated troponin. Echo showed diminished ejection fraction and was suspicious for Takotsubo cardiomyopathy. The patient's hospital course was also complicated by acute DVT because of hematuria and anemia requiring transfusions. It was felt that the patient should have an IVC filter placed. This was done as an emergency because of a concern about a possible life-threatening pulmonary embolism. On discharge, he was stable. Renal function was stable. He will be [facility] back [facility] the [facility] facility. DISCHARGE MEDICATIONS: Please see discharge medication list for discharge medications. DIET: Renal diet. ACTIVITIES: Ad-lynnette. FOLLOWUP: The patient will be followed up by his PMD at the retirement facility in one to two days. Anthony Alejandro M.D. DR: STACEY JOB#: [id number] CC:
[2018-09-08 10:18] LABS: BASOPHILS % (AUTO) 1.3 % (0.0-2.0); EOSINOPHILS % (AUTO) 3.7 % (0.0-3.0); HEMATOCRIT 27.2 % (42.0-52.0); HEMOGLOBIN 8.8 G/DL (14.2-18.0); LYMPHOCYTES % (AUTO) 9.5 % (20.0-45.0); MEAN CORPUSCULAR VOLUME 90 FL (80-99); MONOCYTES % (AUTO) 9.8 % (1.0-10.0); NEUTROPHILS % (AUTO) 75.7 % (45.0-75.0); PLATELET COUNT 317 K/UL (150-450); RED BLOOD COUNT 3.04 M/UL (4.70-6.10); RED CELL DISTRIBUTION WIDTH 18.1 % (11.6-14.8); WHITE BLOOD COUNT 9.1 K/UL (4.8-10.8)
--- NOTE | 2018-09-08 11:31 | NUR ---
RADIOLOGY DEPT., CHEST X-RAY DONE.-P.DYE
[2018-09-08 12:00] VITALS: BP 121/63
--- NOTE | 2018-09-08 14:32 | Nephrology Progress Note ---
Assessment/Plan Problem List: (1) Renal failure (ARF), acute on chronic (2) Prostate hypertrophy (3) Bilateral hydronephrosis (4) Urethral stricture (5) UTI (urinary tract infection) (6) Elevated troponin I level (7) Cardiomyopathy (8) Hypertensive kidney disease Assessment Acute on chronic renal failure Likely Diabetic Nephrosclerosis urinary retention on bladder scan Anemia of CKD Proteinuria / HypoAlbuminemia likely due to DM BPH HTN Parkinsons bilateral hydro elevated troponin Plan Cr lowering CR 3.4 ON ADMISSION- PEAKED TO 4.2 NOW DOWN TO 3.6 HAS IVC FILTER NOW Crcl # 1 is error worsening anemia - bleeding via suprapubic cath Patient need to have an IVC filter to stop further anticoagulation treatment and in my opinion this is an emergency had cysto and supra pubic 09/01 24 h urine Cr Cl and protein ? Transfuse as needed recheck labs in am- transfuse as needed gastric support optimize cardiac status DC cogentin due to retention adjust BP meds Po Bicitra Kidney TONY noted bilateral hydro Uro intervention adjust BP meds Anemia potts check Uric Acid Urine studies up dose flomax per orders check dialntin level Left ventricular lazo in the basal regions are contracted normally however the apical segments are akinetic, 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 Mild left ventricular enlargement. Subjective ROS Limited/Unobtainable: No Constitutional: Reports: malaise Objective Objective Last 24 Hour Vital Signs Date Time Temp Pulse Resp B/P (MAP) Pulse Ox O2 Delivery O2 Flow Rate FiO2 09/08/18 09:18 140/70 09/08/18 09:17 72 140/70 09/08/18 09:16 72 140/70 09/08/18 09:00 Room Air 09/08/18 08:00 98.9 72 18 140/70 (93) 95 09/08/18 08:00 85 09/08/18 06:03 148/74 09/08/18 06:02 148/74 09/08/18 04:00 67 09/08/18 04:00 98.0 74 20 129/67 (87) 97 09/08/18 00:00 97.0 78 20 135/68 (90) 99 09/08/18 00:00 62 09/07/18 21:37 160/78 09/07/18 21:37 160/78 09/07/18 21:35 72 160/78 09/07/18 21:00 Room Air 09/07/18 20:00 62 09/07/18 20:00 97.3 73 18 149/69 (95) 97 09/07/18 17:41 62 140/66 09/07/18 16:00 62 09/07/18 16:00 97.3 65 18 140/66 (90) 98 Intake and Output 09/07/18 09/08/18 19:00 07:00 Intake Total 460 ml Output Total 980 ml 400 ml Balance -520 ml -400 ml Intake Oral 460 ml Output Urine Total 980 ml Stool Total 400 ml Laboratory Tests 09/08/18 10:04: White Blood Count 9.1, Red Blood Count 3.04L, Hemoglobin 8.8L, Hematocrit 27.2L , Mean Corpuscular Volume 90, Mean Corpuscular Hemoglobin 29.1, Mean Corpuscular Hemoglobin Concent 32.5, Red Cell Distribution Width 18.1H, Platelet Count 317, Mean Platelet Volume 4.9L, Neutrophils (%) (Auto) 75.7H, Lymphocytes (%) (Auto) 9.5L, Monocytes (%) (Auto) 9.8, Eosinophils (%) (Auto) 3.7H, Basophils (%) (Auto) 1.3 Height (Feet): 5 Height (Inches): 6.00 Weight (Pounds): 173 General Appearance: no apparent distress Cardiovascular: normal rate Respiratory/Chest: decreased breath sounds Abdomen: distended Objective no change Sukhdeep Rodriguez MD Sep 08, 2018 14:32
[2018-09-08 16:00] VITALS: BP 127/73
--- NOTE | 2018-09-08 16:30 | NUR ---
NURSE NOTES: Pharmacy to deliver insulin pen.
--- NOTE | 2018-09-08 17:10 | NUR ---
NURSE NOTES: Surgical site dry and intact. San intact, draining clear urine.
--- NOTE | 2018-09-08 19:50 | NUR ---
HAND-OFF: Report given to PARAM Alonso. Patient in stable condition.
--- NOTE | 2018-09-08 19:55 | NUR ---
NURSE NOTES: Received report from Debra Garcia RN. Patient in bed with HOB elevated at semi-fowlers with no complaints of acute pain or discomfort noted at this time. Kept clean, dry, and comfortable in bed. AAO X2 and is able to express needs and wants appropriately with no difficulty. IV line intact and patent SL. Placed on continuous cardiac monitoring per protocol. Noted Suprapubic catheter, with dark kermit urine present. No active bleeding and is patent and intact. Safety precaution in place; siderails X3 up, call light within reach, bed in lowest position, brakes and alarm on at all times. Needs and wants anticipated and attended. Will continue plan of care and monitor for any changes noted.
[2018-09-08 20:00] VITALS: BP 171/81
[2018-09-08] MEDS: Tamsulosin 0.4mg cap ORAL SCH (21:11)
--- NOTE | 2018-09-08 22:13 | Pulmonology Progress Note ---
Assessment/Plan Assessment/Plan Pulmonary Progress Note HPI: The patient is a 73-year-old male admitted with urinary retention, acute renal failure. He has a history of hypertensive heart disease, BPH, seizure disorder. On initial evaluation, there was a concern about possible urinary retention, noted to have evidence of UTI. The patient had an elevated creatinine on admission. Noted to have features of Taketsubo's cardiomyopathy on Echo, patchy infiltrates on CXR No new complaints Assessment/Plan 1. Acute renal failure. 2. UTI 3. BPH. 4. Hypertension. 5. Seizure Disorder 6. Anemia 7. Likely pulmonary edema 8. Taketsubo Cardiomyopathy 9. Dementia PLAN diurese as able still with some edema on cxr oxygen as needed monitor imaging and labs later this week repeat cxr reviewed respiratory care follow up exam cards follow up for optimization oxygen needs reviewed impression, plan, and exam edited and reviewed in detail care discussed with RN Subjective Allergies: Coded Allergies: NO KNOWN DRUG ALLERGIES (Unverified Allergy, Unknown, 04/11/14) Subjective events noted comfortable no distress and alert Objective Vital Signs Noted Objective WDWN NAD clear breath sounds bilaterally without rhonchi or wheeze [id number] without MRG NABS nontender no HSM no CC mild edema nonfocal reviewed and edited Laboratory Tests 09/01/18 08:55: White Blood Count 10.9H, Red Blood Count 3.68L, Hemoglobin 10.9L, Hematocrit 32.9L, Mean Corpuscular Volume 89, Mean Corpuscular Hemoglobin 29.7, Mean Corpuscular Hemoglobin Concent 33.3, Red Cell Distribution Width 14.1, Platelet Count 335, Mean Platelet Volume 5.1L, Neutrophils (%) (Auto) 76.0H, Lymphocytes (%) (Auto) 10.9L, Monocytes (%) (Auto) 9.3, Eosinophils (%) (Auto) 2.7, Basophils (%) (Auto) 1.1, Prothrombin Time 26.7H, Prothromb Time International Ratio 2.7H, Activated Partial Thromboplast Time 49H, Sodium Level 140, Potassium Level 3.5, Chloride Level 103, Carbon Dioxide Level 19L, Anion Gap 19H , Blood Urea Nitrogen 42H, Creatinine 3.6H, Estimat Glomerular Filtration Rate , Glucose Level 122H, Uric Acid 6.9, Calcium Level 7.9L, Phosphorus Level 4.5, Magnesium Level 1.8, Total Bilirubin 0.3, Aspartate Amino Transf (AST/SGOT) 23, Alanine Aminotransferase (ALT/SGPT) < 6L, Alkaline Phosphatase 122H, C-Reactive Protein, Quantitative 8.0H, Pro-B-Type Natriuretic Peptide > 54536V, Total Protein 7.0, Albumin 1.9L, Globulin 5.1, Albumin/Globulin Ratio 0.4L Current Medications Medications (Trade) Dose Ordered Sig/Thu Route PRN Reason Start Time Stop Time Status Last Admin Dose Admin Acetaminophen (Tylenol) 650 mg Q6H PRN ORAL For Pain 08/26/18 12:30 09/18/18 12:29 Acetaminophen/ Hydrocodone Bitart ([place] 5/325) 1 tab Q1H PRN ORAL Mild Pain (Pain Scale 1-3) 09/01/18 12:00 09/01/18 20:00 Acetaminophen/ Hydrocodone Bitart ([place] 7.5/325) 1 tab Q1H PRN ORAL Moderate Pain (Pain Scale 4-6) 09/01/18 12:00 09/01/18 20:00 Al Hydroxide/Mg Hydroxide (Mylanta) 15 ml Q1H PRN ORAL gi upset 09/01/18 12:00 09/01/18 20:00 Amlodipine Besylate (Norvasc) 5 mg BID ORAL 08/30/18 18:00 09/27/18 13:59 08/31/18 17:13 Aspirin (ASA) 81 mg DAILY ORAL 08/27/18 09:00 09/26/18 08:59 08/31/18 09:45 Atropine Sulfate (Atropine 0.4mg/ ml) 0.5 mg Q5M PRN IVP HR<40 09/01/18 12:00 09/01/18 20:00 Carbidopa/Levodopa (Sinemet 25/100) 1 tab THREE TIMES A DAY ORAL 08/26/18 13:00 09/19/18 08:59 08/31/18 17:13 Carvedilol (Coreg) 25 mg EVERY 12 HOURS ORAL 08/30/18 09:00 09/29/18 08:59 08/31/18 21:21 Citalopram Hydrobromide (celeXA) 20 mg DAILY ORAL 08/27/18 09:00 09/19/18 08:59 08/31/18 09:46 Clonidine HCl (Catapres tab) 0.2 mg EVERY 8 HOURS ORAL 08/30/18 22:00 09/19/18 00:00 09/01/18 05:33 Dextromethorphan/ Quinidine (Nuedexta Capsule) 1 cap Q12HR ORAL 08/26/18 21:00 09/19/18 08:59 08/31/18 21:21 Dextrose (Dextrose 50%) 25 ml Q30M PRN IV Hypoglycemia 08/26/18 12:15 09/18/18 22:44 Dextrose (Dextrose 50%) 50 ml Q30M PRN IV Hypoglycemia 08/26/18 12:15 09/18/18 22:44 Diphenhydramine HCl (Benadryl) 25 mg Q15M PRN IVP Itching 09/01/18 12:00 09/01/18 20:00 Docusate Sodium (Colace) 100 mg TID ORAL 08/26/18 13:00 09/19/18 08:59 08/31/18 17:13 Donepezil HCl (Aricept) 10 mg DAILY ORAL 08/27/18 09:00 09/19/18 08:59 08/31/18 09:45 Epoetin Zaid (Epoetin Zaid-EPBX(NON ESRD)) 10,000 unit SUBQ 08/29/18 21:00 09/28/18 20:59 08/31/18 21:20 Fentanyl Citrate (Sublimaze 100 mcg/2 mL) 25 mcg Q10M PRN IV Moderate Pain (Pain Scale 4-6) 09/01/18 12:00 09/01/18 20:00 Finasteride (Proscar) 5 mg DAILY ORAL 08/27/18 09:00 09/19/18 08:59 08/31/18 09:46 Hydralazine HCl (Apresoline) 5 mg Q30M PRN IV SBP>160 / DBP>90 09/01/18 12:00 09/01/18 20:00 Hydralazine HCl (Apresoline) 25 mg Q4H PRN ORAL bp over 160 syst 08/28/18 14:00 09/27/18 13:59 Hydralazine HCl (Apresoline) 100 mg Q8HR ORAL 08/29/18 06:00 09/28/18 05:59 09/01/18 05:34 Hydromorphone HCl (Dilaudid) 0.5 mg Q15M PRN IVP Severe Pain (Pain Scale 7-10) 09/01/18 12:00 09/01/18 20:00 Insulin Aspart (NovoLOG) BEFORE MEALS AND HS SUBQ 08/26/18 16:30 09/19/18 06:29 09/01/18 05:34 Isosorbide Mononitrate (Imdur) 60 mg DAILY ORAL 08/30/18 09:00 09/29/18 08:59 08/31/18 09:45 Lactated Ringer's 1,000 ml @ 10 mls/hr Q24H IVLG 09/01/18 11:49 09/01/18 13:48 Lorazepam (Ativan 2mg/ml 1ml) 1 mg Q15M PRN IV For Anxiety 09/01/18 12:00 09/01/18 20:00 Lorazepam (Ativan 2mg/ml 1ml) 2 mg Q2H PRN IV For Anxiety 08/26/18 12:15 09/02/18 10:14 Midazolam HCl (Versed 2mg/2ml vial) 1 mg Q15M PRN IVP For Anxiety 09/01/18 12:00 09/01/18 20:00 Nitroglycerin (Ntg) 1 patch Q24H TDERMAL 08/27/18 15:00 09/26/18 14:59 08/31/18 13:51 Oxycodone/ Acetaminophen (Percocet 5-325) 1 tab Q1H PRN ORAL Severe Pain (Pain Scale 7-10) 09/01/18 12:00 09/01/18 20:00 Pantoprazole (Protonix) 40 mg BID ORAL 08/27/18 14:15 09/26/18 14:14 08/31/18 17:13 Phenytoin (Dilantin) 100 mg Q8HR ORAL 08/31/18 14:00 09/25/18 12:59 09/01/18 05:33 Piperacillin Sod/ Tazobactam Sod 3.375 gm/Sodium Chloride 110 ml @ 27.5 mls/hr Q12H IVPB 08/26/18 13:00 09/05/18 12:59 09/01/18 00:13 Pravastatin Sodium (Pravachol) 80 mg BEDTIME ORAL 08/26/18 21:00 09/19/18 20:59 08/31/18 21:20 Sodium Citrate (Bicitra) 30 ml BID ORAL 08/31/18 18:00 09/30/18 17:59 08/31/18 17:13 Tamsulosin HCl (Flomax) 0.4 mg BID ORAL 08/26/18 18:00 09/19/18 20:59 08/31/18 17:13 Vitamin B Complex/ Vit C/Folic Acid (Nephrovite) 1 tab DAILY ORAL 08/27/18 09:00 09/19/18 08:59 08/31/18 09:45 Subjective ROS Limited/Unobtainable: No Allergies: Coded Allergies: NO KNOWN DRUG ALLERGIES (Unverified Allergy, Unknown, 04/11/14) Objective Last 24 Hour Vital Signs Date Time Temp Pulse Resp B/P (MAP) Pulse Ox O2 Delivery O2 Flow Rate FiO2 09/08/18 21:11 79 171/81 09/08/18 17:50 61 121/63 09/08/18 16:00 97.6 88 18 127/73 (91) 95 09/08/18 16:00 61 09/08/18 15:31 121/63 09/08/18 14:00 121/63 09/08/18 12:00 98.9 72 18 121/63 (82) 95 09/08/18 12:00 66 09/08/18 09:18 140/70 09/08/18 09:17 72 140/70 09/08/18 09:16 72 140/70 09/08/18 09:00 Room Air 09/08/18 08:00 98.9 72 18 140/70 (93) 95 09/08/18 08:00 85 09/08/18 06:03 148/74 09/08/18 06:02 148/74 09/08/18 04:00 67 09/08/18 04:00 98.0 74 20 129/67 (87) 97 09/08/18 00:00 97.0 78 20 135/68 (90) 99 09/08/18 00:00 62 Intake and Output 09/07/18 09/08/18 18:59 06:59 Intake Total 460 ml Output Total 980 ml 400 ml Balance -520 ml -400 ml Intake Oral 460 ml Output Urine Total 980 ml Stool Total 400 ml Laboratory Tests 09/08/18 10:04: White Blood Count 9.1, Red Blood Count 3.04L, Hemoglobin 8.8L, Hematocrit 27.2L , Mean Corpuscular Volume 90, Mean Corpuscular Hemoglobin 29.1, Mean Corpuscular Hemoglobin Concent 32.5, Red Cell Distribution Width 18.1H, Platelet Count 317, Mean Platelet Volume 4.9L, Neutrophils (%) (Auto) 75.7H, Lymphocytes (%) (Auto) 9.5L, Monocytes (%) (Auto) 9.8, Eosinophils (%) (Auto) 3.7H, Basophils (%) (Auto) 1.3 Current Medications Medications (Trade) Dose Ordered Sig/Thu Route PRN Reason Start Time Stop Time Status Last Admin Dose Admin Acetaminophen (Tylenol) 650 mg Q6H PRN ORAL For Pain 08/26/18 12:30 09/18/18 12:29 Amlodipine Besylate (Norvasc) 5 mg BID ORAL 08/30/18 18:00 09/27/18 13:59 09/08/18 17:50 Aspirin (ASA) 81 mg DAILY ORAL 08/27/18 09:00 09/26/18 08:59 09/08/18 09:17 Carbidopa/Levodopa (Sinemet 25/100) 1 tab THREE TIMES A DAY ORAL 08/26/18 13:00 09/19/18 08:59 09/08/18 17:50 Carvedilol (Coreg) 25 mg EVERY 12 HOURS ORAL 08/30/18 09:00 09/29/18 08:59 09/08/18 21:11 Citalopram Hydrobromide (celeXA) 20 mg DAILY ORAL 08/27/18 09:00 09/19/18 08:59 09/08/18 09:17 Clonidine HCl (Catapres tab) 0.2 mg EVERY 8 HOURS ORAL 08/30/18 22:00 09/19/18 00:00 09/08/18 06:03 Dextromethorphan/ Quinidine (Nuedexta Capsule) 1 cap Q12HR ORAL 08/26/18 21:00 09/19/18 08:59 09/08/18 21:11 Dextrose (Dextrose 50%) 25 ml Q30M PRN IV Hypoglycemia 08/26/18 12:15 09/18/18 22:44 Dextrose (Dextrose 50%) 50 ml Q30M PRN IV Hypoglycemia 08/26/18 12:15 09/18/18 22:44 Docusate Sodium (Colace) 100 mg TID ORAL 08/26/18 13:00 09/19/18 08:59 09/08/18 17:50 Donepezil HCl (Aricept) 10 mg DAILY ORAL 08/27/18 09:00 09/19/18 08:59 09/08/18 09:17 Epoetin Zaid (Epoetin Zaid-EPBX(NON ESRD)) 10,000 unit WED- SUBQ 08/29/18 21:00 09/28/18 20:59 09/07/18 21:36 Finasteride (Proscar) 5 mg DAILY ORAL 08/27/18 09:00 09/19/18 08:59 09/08/18 09:17 Hydralazine HCl (Apresoline) 25 mg Q4H PRN ORAL bp over 160 syst 08/28/18 14:00 09/27/18 13:59 09/05/18 04:41 Hydralazine HCl (Apresoline) 100 mg Q8HR ORAL 08/29/18 06:00 09/28/18 05:59 09/08/18 15:31 Insulin Aspart (NovoLOG) BEFORE MEALS AND HS SUBQ 08/26/18 16:30 09/19/18 06:29 09/08/18 12:37 Isosorbide Mononitrate (Imdur) 60 mg DAILY ORAL 08/30/18 09:00 09/29/18 08:59 09/08/18 09:18 Pantoprazole (Protonix) 40 mg BID ORAL 08/27/18 14:15 09/26/18 14:14 09/08/18 17:50 Phenytoin (Dilantin) 100 mg Q8HR ORAL 08/31/18 14:00 09/25/18 12:59 09/08/18 15:31 Pravastatin Sodium (Pravachol) 80 mg BEDTIME ORAL 08/26/18 21:00 09/19/18 20:59 09/08/18 21:11 Tamsulosin HCl (Flomax) 0.4 mg QHS ORAL 09/03/18 21:00 09/19/18 20:59 09/08/18 21:11 Vitamin B Complex/ Vit C/Folic Acid (Nephrovite) 1 tab DAILY ORAL 08/27/18 09:00 09/19/18 08:59 09/08/18 09:17 Eric Pettit MD Sep 08, 2018 22:13
--- NOTE | 2018-09-08 22:30 | NUR ---
NURSE NOTES: Patient refused insulin per SS. Explained risks and benefits, still refused. BS at 2100 (198). Will continue to monitor.
[2018-09-09] VITALS: BP 114/58
--- NOTE | 2018-09-09 00:42 | NUR ---
NURSE NOTES: Suprapubic catheter stoma inspected, no active bleeding noted. Kept clean and dry. Dsg changed as ordered.
[2018-09-09 04:00] VITALS: BP 167/91
--- NOTE | 2018-09-09 04:36 | NUR ---
NURSE NOTES: Patient in bed asleep with no S/S of acute pain or distress noted at this time. Will continue to monitor.
[2018-09-09] MEDS: Phenytoin 100mg cap ORAL SCH ×3 (05:53→21:31)
[2018-09-09] MEDS: HydrALAZINE 50mg tab ORAL SCH ×3 (05:53→21:31)
[2018-09-09] MEDS: cloNIDine 0.2mg Tab ORAL SCH ×3 (05:53→22:00)
[2018-09-09] MEDS: NovoLOG Insulin Flexpen SUBQ SCH ×4 (05:58→21:00)
--- NOTE | 2018-09-09 06:00 | NUR ---
NURSE NOTES: Patient removed IV access, tried to reinsert a new one but patient refused. Explained risks and benefits. Will endorse plan of care.
[2018-09-09 06:16] LABS: BASOPHILS % (AUTO) 0.9 % (0.0-2.0); EOSINOPHILS % (AUTO) 3.2 % (0.0-3.0); HEMATOCRIT 28.7 % (42.0-52.0); HEMOGLOBIN 9.4 G/DL (14.2-18.0); LYMPHOCYTES % (AUTO) 12.1 % (20.0-45.0); MEAN CORPUSCULAR VOLUME 90 FL (80-99); NEUTROPHILS % (AUTO) 72.8 % (45.0-75.0); PLATELET COUNT 358 K/UL (150-450); RED CELL DISTRIBUTION WIDTH 17.6 % (11.6-14.8); WHITE BLOOD COUNT 8.6 K/UL (4.8-10.8)
--- NOTE | 2018-09-09 06:56 | General Progress Note ---
Assessment/Plan Problem List: (1) Acute renal insufficiency ICD Codes: N28.9 - Disorder of kidney and ureter, unspecified SNOMED: 41472045 (2) Leukocytosis ICD Codes: D72.829 - Elevated white blood cell count, unspecified SNOMED: 838833896 (3) Hematuria, gross ICD Codes: R31.0 - Gross hematuria SNOMED: 509582902 (4) Prostate hypertrophy ICD Codes: N40.0 - Benign prostatic hyperplasia without lower urinary tract symptoms SNOMED: 445221021 (5) UTI (urinary tract infection) ICD Codes: N39.0 - Urinary tract infection, site not specified SNOMED: 69557651 (6) Urethral stricture SNOMED: 02196265 (7) AMI (acute myocardial infarction) ICD Codes: I21.9 - Acute myocardial infarction, unspecified SNOMED: 32628018 Status: stable, progressing Assessment/Plan: suprapubic catheter to gravity cautious antiplt rx BP rx follow up pending labs transfuse as needed dc planning today if labs ok and cleared by consultants Subjective ROS Limited/Unobtainable: No Constitutional: Reports: malaise, weakness HEENT: Reports: no symptoms Cardiovascular: Reports: no symptoms Respiratory: Reports: no symptoms Gastrointestinal/Abdominal: Reports: no symptoms Genitourinary: Reports: no symptoms Neurologic/Psychiatric: Reports: anxiety, emotional problems Endocrine: Reports: no symptoms Hematologic/Lymphatic: Reports: anemia Allergies: Coded Allergies: NO KNOWN DRUG ALLERGIES (Unverified Allergy, Unknown, 04/11/14) All Systems: reviewed and negative except above Subjective no events. resting. no bleeding noted. labs pending Objective Last 24 Hour Vital Signs Date Time Temp Pulse Resp B/P (MAP) Pulse Ox O2 Delivery O2 Flow Rate FiO2 09/09/18 05:53 167/81 09/09/18 05:53 167/81 09/09/18 04:00 97.3 76 20 167/91 (116) 98 09/09/18 04:00 65 09/09/18 00:00 68 09/09/18 00:00 97.0 74 18 114/58 (76) 98 09/08/18 22:36 136/66 09/08/18 22:36 136/66 09/08/18 21:11 79 171/81 09/08/18 21:00 Room Air 09/08/18 20:00 72 09/08/18 20:00 97.6 79 20 171/81 (111) 94 09/08/18 17:50 61 121/63 09/08/18 16:00 97.6 88 18 127/73 (91) 95 09/08/18 16:00 61 09/08/18 15:31 121/63 09/08/18 14:00 121/63 09/08/18 12:00 98.9 72 18 121/63 (82) 95 09/08/18 12:00 66 09/08/18 09:18 140/70 09/08/18 09:17 72 140/70 09/08/18 09:16 72 140/70 09/08/18 09:00 Room Air 09/08/18 08:00 98.9 72 18 140/70 (93) 95 09/08/18 08:00 85 Intake and Output 09/08/18 09/09/18 19:00 07:00 Intake Total 360 ml Output Total 920 ml Balance -560 ml Intake Oral 360 ml Output Urine Total 920 ml Laboratory Tests 09/08/18 10:04: White Blood Count 9.1, Red Blood Count 3.04L, Hemoglobin 8.8L, Hematocrit 27.2L , Mean Corpuscular Volume 90, Mean Corpuscular Hemoglobin 29.1, Mean Corpuscular Hemoglobin Concent 32.5, Red Cell Distribution Width 18.1H, Platelet Count 317, Mean Platelet Volume 4.9L, Neutrophils (%) (Auto) 75.7H, Lymphocytes (%) (Auto) 9.5L, Monocytes (%) (Auto) 9.8, Eosinophils (%) (Auto) 3.7H, Basophils (%) (Auto) 1.3 09/09/18 05:35: White Blood Count 8.6, Red Blood Count 3.20L, Hemoglobin 9.4L, Hematocrit 28.7L , Mean Corpuscular Volume 90, Mean Corpuscular Hemoglobin 29.5, Mean Corpuscular Hemoglobin Concent 32.9, Red Cell Distribution Width 17.6H, Platelet Count 358, Mean Platelet Volume 5.0L, Neutrophils (%) (Auto) 72.8, Lymphocytes (%) (Auto) 12.1L, Monocytes (%) (Auto) 11.0H, Eosinophils (%) (Auto ) 3.2H, Basophils (%) (Auto) 0.9, Sodium Level [Pending], Potassium Level [ Pending], Chloride Level [Pending], Carbon Dioxide Level [Pending], Blood Urea Nitrogen [Pending], Creatinine [Pending], Estimat Glomerular Filtration Rate [ Pending], Glucose Level [Pending], Uric Acid [Pending], Calcium Level [Pending] , Phosphorus Level [Pending], Magnesium Level [Pending], Total Bilirubin [ Pending], Aspartate Amino Transf (AST/SGOT) [Pending], Alanine Aminotransferase (ALT/SGPT) [Pending], Alkaline Phosphatase [Pending], C-Reactive Protein, Quantitative [Pending], Pro-B-Type Natriuretic Peptide [Pending], Total Protein [Pending], Albumin [Pending], Globulin [Pending] Height (Feet): 5 Height (Inches): 6.00 Weight (Pounds): 173 Objective General Appearance: WD/WN, alert Neck: supple Cardiovascular: normal rate, regular rhythm Respiratory/Chest: chest wall non-tender, lungs - rhonchi and wheezes Abdomen: normal bowel sounds, non tender, soft, no organomegaly Edema: 1+ edema Anthony Alejandro MD Sep 09, 2018 06:56
[2018-09-09 06:58] LABS: ALBUMIN 1.8 G/DL (3.4-5.0); ALBUMIN/GLOBULIN RATIO 0.4 (1.0-2.7); ALKALINE PHOSPHATASE 168 U/L (46-116); ANION GAP 17 mmol/L (5-15); ASPARTATE AMINO TRANSFERASE 23 U/L (15-37); BILIRUBIN,TOTAL 0.4 MG/DL (0.2-1.0); BLOOD UREA NITROGEN 39 mg/dL (7-18); CALCIUM 7.8 MG/DL (8.5-10.1); CARBON DIOXIDE 17 MMOL/L (21-32); CHLORIDE 95 MMOL/L (98-107); CREATININE 3.5 MG/DL (0.55-1.30); PHOSPHORUS 5.2 MG/DL (2.5-4.9); POTASSIUM 4.1 MMOL/L (3.5-5.1); SODIUM 128 MMOL/L (136-145)
[2018-09-09 07:09] LABS: ALANINE AMINOTRANSFERASE < 6 U/L (12-78)
--- NOTE | 2018-09-09 07:57 | NUR ---
HAND-OFF: Report given to Bridgett Huston RN. patient in bed with no S/S of distress noted at this time. Endorsed plan of care.
[2018-09-09 08:00] VITALS: BP 139/67
--- NOTE | 2018-09-09 08:59 | NUR ---
NURSE NOTES: pt in bed in low position, bed alarm on, call light at bedside, pt may be resistive to care, suprapubic in place with clear yellow urine, pt Ox2 calm, pt ate breakfast, no IV as patient pulled it, vitals WnL, will continue to monitor, no s/s of distress or sob noted.
[2018-09-09] MEDS: Donepezil 10mg tab ORAL SCH (09:37)
[2018-09-09] MEDS: Citalopram Hydrobromide 10mg Tab ORAL SCH (09:37)
[2018-09-09] MEDS: Aspirin Baby 81mg ORAL SCH (09:38)
[2018-09-09] MEDS: Nephrovite tab (Rena-Vite) ORAL SCH (09:38)
[2018-09-09] MEDS: Imdur 30mg tab ORAL SCH (09:40)
[2018-09-09] MEDS: Levodopa/Carbidopa 25/100 tab ORAL SCH ×3 (09:40→17:42)
[2018-09-09] MEDS: Nuedexta Capsule 20/10mg ORAL SCH ×2 (09:40→21:31)
[2018-09-09] MEDS: Docusate 100mg cap ORAL SCH ×3 (09:41→17:41)
[2018-09-09] MEDS: Carvedilol 25mg Tab ORAL SCH ×2 (09:41→21:30)
[2018-09-09 12:00] VITALS: BP 153/93
--- NOTE | 2018-09-09 15:12 | NUR ---
CASE MANAGEMENT:REVIEW 09/05/18 SI: SEVEN. HEMATURIA. UTI. AMI URETHRAL STRICTURE ~ S/P CYSTOSCOPY AND TUBE PLACEMENT 97.3 63 18 153/93 96% ON RA H/H-9.4/28.7 NA-128 BUN+39 CR+3.5 IS: FLOMAX PO QHS DILANTIN PO Q8HRS CLONIDINE PO Q8HRS NORVASC PO BID IMDUR PO QD COREG PO Q12 HYDRALAZINE PO Q8HRS : TELEMETRY STATUS DCP: FROM [facility]
--- NOTE | 2018-09-09 15:24 | NUR ---
DISCHARGE PLANNING SITE IDENTIFICATION SPECIALIST FAXED CLINICALS TO SNF JUST IN CASE PATIENT IS DISCHARGED OVER THE WEEKEND [facility] T: [phone] F: [phone]
--- NOTE | 2018-09-09 15:59 | Nephrology Progress Note ---
Assessment/Plan Problem List: (1) Renal failure (ARF), acute on chronic (2) Prostate hypertrophy (3) Bilateral hydronephrosis (4) Urethral stricture (5) UTI (urinary tract infection) (6) Elevated troponin I level (7) Cardiomyopathy (8) Hypertensive kidney disease Assessment Acute on chronic renal failure Likely Diabetic Nephrosclerosis urinary retention on bladder scan Anemia of CKD Proteinuria / HypoAlbuminemia likely due to DM BPH HTN Parkinsons bilateral hydro elevated troponin Plan Cr lowering CR 3.4 ON ADMISSION- PEAKED TO 4.2 NOW DOWN TO 3.5 HAS IVC FILTER NOW Crcl # 1 is error worsening anemia - bleeding via suprapubic cath Patient need to have an IVC filter to stop further anticoagulation treatment and in my opinion this is an emergency had cysto and supra pubic 09/01 24 h urine Cr Cl and protein ? Transfuse as needed recheck labs in am- transfuse as needed gastric support optimize cardiac status DC cogentin due to retention adjust BP meds Po Bicitra Kidney TONY noted bilateral hydro Uro intervention adjust BP meds Anemia potts check Uric Acid Urine studies up dose flomax per orders check dialntin level Left ventricular lazo in the basal regions are contracted normally however the apical segments are akinetic, 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 Mild left ventricular enlargement. Subjective ROS Limited/Unobtainable: No Constitutional: Reports: malaise, weakness Objective Objective Last 24 Hour Vital Signs Date Time Temp Pulse Resp B/P (MAP) Pulse Ox O2 Delivery O2 Flow Rate FiO2 09/09/18 15:37 153/93 09/09/18 14:00 153/93 09/09/18 12:00 97.3 63 18 153/93 (113) 96 09/09/18 09:41 73 139/67 09/09/18 09:40 73 139/67 09/09/18 09:40 139/67 09/09/18 08:58 Room Air 09/09/18 08:00 97.3 73 20 139/67 (91) 97 09/09/18 07:40 68 09/09/18 05:53 167/81 09/09/18 05:53 167/81 09/09/18 04:00 97.3 76 20 167/91 (116) 98 09/09/18 04:00 65 09/09/18 00:00 68 09/09/18 00:00 97.0 74 18 114/58 (76) 98 09/08/18 22:36 136/66 09/08/18 22:36 136/66 09/08/18 21:11 79 171/81 09/08/18 21:00 Room Air 09/08/18 20:00 72 09/08/18 20:00 97.6 79 20 171/81 (111) 94 09/08/18 17:50 61 121/63 09/08/18 16:00 97.6 88 18 127/73 (91) 95 09/08/18 16:00 61 Intake and Output 09/08/18 09/09/18 19:00 07:00 Intake Total 360 ml Output Total 920 ml 700 ml Balance -560 ml -700 ml Intake Oral 360 ml Output Urine Total 920 ml 700 ml Laboratory Tests 09/09/18 05:35: White Blood Count 8.6, Red Blood Count 3.20L, Hemoglobin 9.4L, Hematocrit 28.7L , Mean Corpuscular Volume 90, Mean Corpuscular Hemoglobin 29.5, Mean Corpuscular Hemoglobin Concent 32.9, Red Cell Distribution Width 17.6H, Platelet Count 358, Mean Platelet Volume 5.0L, Neutrophils (%) (Auto) 72.8, Lymphocytes (%) (Auto) 12.1L, Monocytes (%) (Auto) 11.0H, Eosinophils (%) (Auto ) 3.2H, Basophils (%) (Auto) 0.9, Sodium Level 128L, Potassium Level 4.1, Chloride Level 95L, Carbon Dioxide Level 17L, Anion Gap 17H, Blood Urea Nitrogen 39H, Creatinine 3.5H, Estimat Glomerular Filtration Rate , Glucose Level 148H, Uric Acid 9.1H, Calcium Level 7.8L, Phosphorus Level 5.2H, Magnesium Level 1.9, Total Bilirubin 0.4, Aspartate Amino Transf (AST/SGOT) 23, Alanine Aminotransferase (ALT/SGPT) < 6L, Alkaline Phosphatase 168H, C-Reactive Protein, Quantitative 7.4H, Pro-B-Type Natriuretic Peptide 81469N, Total Protein 6.7, Albumin 1.8L, Globulin 4.9, Albumin/Globulin Ratio 0.4L Height (Feet): 5 Height (Inches): 6.00 Weight (Pounds): 173 General Appearance: no apparent distress Cardiovascular: normal rate Respiratory/Chest: decreased breath sounds Abdomen: soft Objective no change Sukhdeep Rodriguez MD Sep 09, 2018 15:59
[2018-09-09 16:00] VITALS: BP 147/69
--- NOTE | 2018-09-09 17:45 | Diagnostic Imaging Report ---
Indication: Abnormal breath sounds Comparison: 08/29/2018 A single view chest radiograph was obtained. Findings: Pulmonary vascular congestion suspected. There may be a small pleural effusion on the right that hazy opacity noted. Heart size is stable. IMPRESSION: Suspected mild pulmonary vascular congestion. Correlate clinically
--- NOTE | 2018-09-09 18:52 | NUR ---
NURSE NOTES: Patient has not eaten more than 25% for all meals..
--- NOTE | 2018-09-09 19:20 | NUR ---
NURSE NOTES: Received patient from [facility]. Patient is asleep, on room air showing no signs of respiratory distress. Suprapubic catheter is patent and draining. Bed is locked, placed in lowest position, bed alarm on, side rails up x3, call light within reach. Will continue to monitor.
--- NOTE | 2018-09-09 19:22 | Pulmonology Progress Note ---
Assessment/Plan Assessment/Plan Pulmonary Progress Note HPI: The patient is a 73-year-old male admitted with urinary retention, acute renal failure. He has a history of hypertensive heart disease, BPH, seizure disorder. On initial evaluation, there was a concern about possible urinary retention, noted to have evidence of UTI. The patient had an elevated creatinine on admission. Acute on chronic renal failure, hyponayremia Noted to have features of Taketsubo's cardiomyopathy on Echo, patchy infiltrates on CXR No new complaints Assessment/Plan 1. Acute on chronic renal failure. 2. UTI 3. BPH. 4. Hypertension. 5. Seizure Disorder 6. Anemia 7. Likely pulmonary edema 8. Taketsubo Cardiomyopathy 9. Dementia PLAN diurese as able still with some edema on cxr oxygen as needed monitor imaging and labs later this week repeat cxr reviewed respiratory care follow up exam cards follow up for optimization oxygen needs reviewed impression, plan, and exam edited and reviewed in detail care discussed with RN Subjective Allergies: Coded Allergies: NO KNOWN DRUG ALLERGIES (Unverified Allergy, Unknown, 04/11/14) Subjective events noted comfortable no distress and alert Objective Vital Signs Noted Objective WDWN NAD clear breath sounds bilaterally without rhonchi or wheeze [id number] without MRG NABS nontender no HSM no CC mild edema nonfocal reviewed and edited Laboratory Tests 09/01/18 08:55: White Blood Count 10.9H, Red Blood Count 3.68L, Hemoglobin 10.9L, Hematocrit 32.9L, Mean Corpuscular Volume 89, Mean Corpuscular Hemoglobin 29.7, Mean Corpuscular Hemoglobin Concent 33.3, Red Cell Distribution Width 14.1, Platelet Count 335, Mean Platelet Volume 5.1L, Neutrophils (%) (Auto) 76.0H, Lymphocytes (%) (Auto) 10.9L, Monocytes (%) (Auto) 9.3, Eosinophils (%) (Auto) 2.7, Basophils (%) (Auto) 1.1, Prothrombin Time 26.7H, Prothromb Time International Ratio 2.7H, Activated Partial Thromboplast Time 49H, Sodium Level 140, Potassium Level 3.5, Chloride Level 103, Carbon Dioxide Level 19L, Anion Gap 19H , Blood Urea Nitrogen 42H, Creatinine 3.6H, Estimat Glomerular Filtration Rate , Glucose Level 122H, Uric Acid 6.9, Calcium Level 7.9L, Phosphorus Level 4.5, Magnesium Level 1.8, Total Bilirubin 0.3, Aspartate Amino Transf (AST/SGOT) 23, Alanine Aminotransferase (ALT/SGPT) < 6L, Alkaline Phosphatase 122H, C-Reactive Protein, Quantitative 8.0H, Pro-B-Type Natriuretic Peptide > 87280A, Total Protein 7.0, Albumin 1.9L, Globulin 5.1, Albumin/Globulin Ratio 0.4L Current Medications Medications (Trade) Dose Ordered Sig/Thu Route PRN Reason Start Time Stop Time Status Last Admin Dose Admin Acetaminophen (Tylenol) 650 mg Q6H PRN ORAL For Pain 08/26/18 12:30 09/18/18 12:29 Acetaminophen/ Hydrocodone Bitart ([place] 5/325) 1 tab Q1H PRN ORAL Mild Pain (Pain Scale 1-3) 09/01/18 12:00 09/01/18 20:00 Acetaminophen/ Hydrocodone Bitart ([place] 7.5/325) 1 tab Q1H PRN ORAL Moderate Pain (Pain Scale 4-6) 09/01/18 12:00 09/01/18 20:00 Al Hydroxide/Mg Hydroxide (Mylanta) 15 ml Q1H PRN ORAL gi upset 09/01/18 12:00 09/01/18 20:00 Amlodipine Besylate (Norvasc) 5 mg BID ORAL 08/30/18 18:00 09/27/18 13:59 08/31/18 17:13 Aspirin (ASA) 81 mg DAILY ORAL 08/27/18 09:00 09/26/18 08:59 08/31/18 09:45 Atropine Sulfate (Atropine 0.4mg/ ml) 0.5 mg Q5M PRN IVP HR<40 09/01/18 12:00 09/01/18 20:00 Carbidopa/Levodopa (Sinemet 25/100) 1 tab THREE TIMES A DAY ORAL 08/26/18 13:00 09/19/18 08:59 08/31/18 17:13 Carvedilol (Coreg) 25 mg EVERY 12 HOURS ORAL 08/30/18 09:00 09/29/18 08:59 08/31/18 21:21 Citalopram Hydrobromide (celeXA) 20 mg DAILY ORAL 08/27/18 09:00 09/19/18 08:59 08/31/18 09:46 Clonidine HCl (Catapres tab) 0.2 mg EVERY 8 HOURS ORAL 08/30/18 22:00 09/19/18 00:00 09/01/18 05:33 Dextromethorphan/ Quinidine (Nuedexta Capsule) 1 cap Q12HR ORAL 08/26/18 21:00 09/19/18 08:59 08/31/18 21:21 Dextrose (Dextrose 50%) 25 ml Q30M PRN IV Hypoglycemia 08/26/18 12:15 09/18/18 22:44 Dextrose (Dextrose 50%) 50 ml Q30M PRN IV Hypoglycemia 08/26/18 12:15 09/18/18 22:44 Diphenhydramine HCl (Benadryl) 25 mg Q15M PRN IVP Itching 09/01/18 12:00 09/01/18 20:00 Docusate Sodium (Colace) 100 mg TID ORAL 08/26/18 13:00 09/19/18 08:59 08/31/18 17:13 Donepezil HCl (Aricept) 10 mg DAILY ORAL 08/27/18 09:00 09/19/18 08:59 08/31/18 09:45 Epoetin Zaid (Epoetin Zaid-EPBX(NON ESRD)) 10,000 unit WED-WED-WED SUBQ 08/29/18 21:00 09/28/18 20:59 08/31/18 21:20 Fentanyl Citrate (Sublimaze 100 mcg/2 mL) 25 mcg Q10M PRN IV Moderate Pain (Pain Scale 4-6) 09/01/18 12:00 09/01/18 20:00 Finasteride (Proscar) 5 mg DAILY ORAL 08/27/18 09:00 09/19/18 08:59 08/31/18 09:46 Hydralazine HCl (Apresoline) 5 mg Q30M PRN IV SBP>160 / DBP>90 09/01/18 12:00 09/01/18 20:00 Hydralazine HCl (Apresoline) 25 mg Q4H PRN ORAL bp over 160 syst 08/28/18 14:00 09/27/18 13:59 Hydralazine HCl (Apresoline) 100 mg Q8HR ORAL 08/29/18 06:00 09/28/18 05:59 09/01/18 05:34 Hydromorphone HCl (Dilaudid) 0.5 mg Q15M PRN IVP Severe Pain (Pain Scale 7-10) 09/01/18 12:00 09/01/18 20:00 Insulin Aspart (NovoLOG) BEFORE MEALS AND HS SUBQ 08/26/18 16:30 09/19/18 06:29 09/01/18 05:34 Isosorbide Mononitrate (Imdur) 60 mg DAILY ORAL 08/30/18 09:00 09/29/18 08:59 08/31/18 09:45 Lactated Ringer's 1,000 ml @ 10 mls/hr Q24H IVLG 09/01/18 11:49 09/01/18 13:48 Lorazepam (Ativan 2mg/ml 1ml) 1 mg Q15M PRN IV For Anxiety 09/01/18 12:00 09/01/18 20:00 Lorazepam (Ativan 2mg/ml 1ml) 2 mg Q2H PRN IV For Anxiety 08/26/18 12:15 09/02/18 10:14 Midazolam HCl (Versed 2mg/2ml vial) 1 mg Q15M PRN IVP For Anxiety 09/01/18 12:00 09/01/18 20:00 Nitroglycerin (Ntg) 1 patch Q24H TDERMAL 08/27/18 15:00 09/26/18 14:59 08/31/18 13:51 Oxycodone/ Acetaminophen (Percocet 5-325) 1 tab Q1H PRN ORAL Severe Pain (Pain Scale 7-10) 09/01/18 12:00 09/01/18 20:00 Pantoprazole (Protonix) 40 mg BID ORAL 08/27/18 14:15 09/26/18 14:14 08/31/18 17:13 Phenytoin (Dilantin) 100 mg Q8HR ORAL 08/31/18 14:00 09/25/18 12:59 09/01/18 05:33 Piperacillin Sod/ Tazobactam Sod 3.375 gm/Sodium Chloride 110 ml @ 27.5 mls/hr Q12H IVPB 08/26/18 13:00 09/05/18 12:59 09/01/18 00:13 Pravastatin Sodium (Pravachol) 80 mg BEDTIME ORAL 08/26/18 21:00 09/19/18 20:59 08/31/18 21:20 Sodium Citrate (Bicitra) 30 ml BID ORAL 08/31/18 18:00 09/30/18 17:59 08/31/18 17:13 Tamsulosin HCl (Flomax) 0.4 mg BID ORAL 08/26/18 18:00 09/19/18 20:59 08/31/18 17:13 Vitamin B Complex/ Vit C/Folic Acid (Nephrovite) 1 tab DAILY ORAL 08/27/18 09:00 09/19/18 08:59 08/31/18 09:45 Subjective ROS Limited/Unobtainable: No Allergies: Coded Allergies: NO KNOWN DRUG ALLERGIES (Unverified Allergy, Unknown, 04/11/14) Objective Last 24 Hour Vital Signs Date Time Temp Pulse Resp B/P (MAP) Pulse Ox O2 Delivery O2 Flow Rate FiO2 09/09/18 17:41 63 147/69 09/09/18 16:00 63 09/09/18 16:00 97.5 67 20 147/69 (95) 97 09/09/18 15:37 153/93 09/09/18 14:00 153/93 09/09/18 12:00 97.3 63 18 153/93 (113) 96 09/09/18 12:00 68 09/09/18 09:41 73 139/67 09/09/18 09:40 73 139/67 09/09/18 09:40 139/67 09/09/18 08:58 Room Air 09/09/18 08:00 97.3 73 20 139/67 (91) 97 09/09/18 07:40 68 09/09/18 05:53 167/81 09/09/18 05:53 167/81 09/09/18 04:00 97.3 76 20 167/91 (116) 98 09/09/18 04:00 65 09/09/18 00:00 68 09/09/18 00:00 97.0 74 18 114/58 (76) 98 09/08/18 22:36 136/66 09/08/18 22:36 136/66 09/08/18 21:11 79 171/81 09/08/18 21:00 Room Air 09/08/18 20:00 72 09/08/18 20:00 97.6 79 20 171/81 (111) 94 Intake and Output 09/08/18 09/09/18 19:00 07:00 Intake Total 360 ml Output Total 920 ml 700 ml Balance -560 ml -700 ml Intake Oral 360 ml Output Urine Total 920 ml 700 ml Laboratory Tests 09/09/18 05:35: White Blood Count 8.6, Red Blood Count 3.20L, Hemoglobin 9.4L, Hematocrit 28.7L , Mean Corpuscular Volume 90, Mean Corpuscular Hemoglobin 29.5, Mean Corpuscular Hemoglobin Concent 32.9, Red Cell Distribution Width 17.6H, Platelet Count 358, Mean Platelet Volume 5.0L, Neutrophils (%) (Auto) 72.8, Lymphocytes (%) (Auto) 12.1L, Monocytes (%) (Auto) 11.0H, Eosinophils (%) (Auto ) 3.2H, Basophils (%) (Auto) 0.9, Sodium Level 128L, Potassium Level 4.1, Chloride Level 95L, Carbon Dioxide Level 17L, Anion Gap 17H, Blood Urea Nitrogen 39H, Creatinine 3.5H, Estimat Glomerular Filtration Rate , Glucose Level 148H, Uric Acid 9.1H, Calcium Level 7.8L, Phosphorus Level 5.2H, Magnesium Level 1.9, Total Bilirubin 0.4, Aspartate Amino Transf (AST/SGOT) 23, Alanine Aminotransferase (ALT/SGPT) < 6L, Alkaline Phosphatase 168H, C-Reactive Protein, Quantitative 7.4H, Pro-B-Type Natriuretic Peptide 68983X, Total Protein 6.7, Albumin 1.8L, Globulin 4.9, Albumin/Globulin Ratio 0.4L Current Medications Medications (Trade) Dose Ordered Sig/Thu Route PRN Reason Start Time Stop Time Status Last Admin Dose Admin Acetaminophen (Tylenol) 650 mg Q6H PRN ORAL For Pain 08/26/18 12:30 09/18/18 12:29 Amlodipine Besylate (Norvasc) 5 mg BID ORAL 08/30/18 18:00 09/27/18 13:59 09/09/18 17:41 Aspirin (ASA) 81 mg DAILY ORAL 08/27/18 09:00 09/26/18 08:59 09/09/18 09:38 Carbidopa/Levodopa (Sinemet 25/100) 1 tab THREE TIMES A DAY ORAL 08/26/18 13:00 09/19/18 08:59 09/09/18 17:42 Carvedilol (Coreg) 25 mg EVERY 12 HOURS ORAL 08/30/18 09:00 09/29/18 08:59 09/09/18 09:41 Citalopram Hydrobromide (celeXA) 20 mg DAILY ORAL 08/27/18 09:00 09/19/18 08:59 09/09/18 09:37 Clonidine HCl (Catapres tab) 0.2 mg EVERY 8 HOURS ORAL 08/30/18 22:00 09/19/18 00:00 09/09/18 15:37 Dextromethorphan/ Quinidine (Nuedexta Capsule) 1 cap Q12HR ORAL 08/26/18 21:00 09/19/18 08:59 09/09/18 09:40 Dextrose (Dextrose 50%) 25 ml Q30M PRN IV Hypoglycemia 08/26/18 12:15 09/18/18 22:44 Dextrose (Dextrose 50%) 50 ml Q30M PRN IV Hypoglycemia 08/26/18 12:15 09/18/18 22:44 Docusate Sodium (Colace) 100 mg TID ORAL 08/26/18 13:00 09/19/18 08:59 09/09/18 17:41 Donepezil HCl (Aricept) 10 mg DAILY ORAL 08/27/18 09:00 09/19/18 08:59 09/09/18 09:37 Epoetin Zaid (Epoetin Zaid-EPBX(NON ESRD)) 10,000 unit WED-WED-WED SUBQ 08/29/18 21:00 09/28/18 20:59 09/07/18 21:36 Finasteride (Proscar) 5 mg DAILY ORAL 08/27/18 09:00 09/19/18 08:59 09/09/18 09:38 Hydralazine HCl (Apresoline) 25 mg Q4H PRN ORAL bp over 160 syst 08/28/18 14:00 09/27/18 13:59 09/05/18 04:41 Hydralazine HCl (Apresoline) 100 mg Q8HR ORAL 08/29/18 06:00 09/28/18 05:59 09/09/18 05:53 Insulin Aspart (NovoLOG) BEFORE MEALS AND HS SUBQ 08/26/18 16:30 09/19/18 06:29 09/09/18 12:51 Isosorbide Mononitrate (Imdur) 60 mg DAILY ORAL 08/30/18 09:00 09/29/18 08:59 09/09/18 09:40 Pantoprazole (Protonix) 40 mg BID ORAL 08/27/18 14:15 09/26/18 14:14 09/09/18 17:41 Phenytoin (Dilantin) 100 mg Q8HR ORAL 08/31/18 14:00 09/25/18 12:59 09/09/18 15:37 Pravastatin Sodium (Pravachol) 80 mg BEDTIME ORAL 08/26/18 21:00 09/19/18 20:59 09/08/18 21:11 Tamsulosin HCl (Flomax) 0.4 mg QHS ORAL 09/03/18 21:00 09/19/18 20:59 09/08/18 21:11 Vitamin B Complex/ Vit C/Folic Acid (Nephrovite) 1 tab DAILY ORAL 08/27/18 09:00 09/19/18 08:59 09/09/18 09:38 Eric Pettit MD Sep 09, 2018 19:22
[2018-09-09 20:00] VITALS: BP 168/83
[2018-09-09] MEDS: Tamsulosin 0.4mg cap ORAL SCH (21:30)
[2018-09-09] MEDS: Epoetin Alfa-EPBX (NON ESRD)10,000 unit/ml vial SUBQ SCH (21:32)
[2018-09-10] VITALS: BP 136/74
--- NOTE | 2018-09-10 02:15 | Progress Note ---
DATE: 09/08/2018 CARDIOLOGY PROGRESS NOTE Late entry for 09/08/2018. SUBJECTIVE: Blood pressure parameters elevated at times. No chest pain. No shortness of breath. Suprapubic catheter in place. OBJECTIVE: VITAL SIGNS: Blood pressure is 140/70, pulse 72, and respiratory rate 18. LUNGS: Clear. CARDIAC: Regular rhythm and rate. Normal S1, S2 with a 1/6 systolic apical murmur. ABDOMEN: Soft. EXTREMITIES: Trace edema. LABORATORY DATA: White count 9.1 and hemoglobin 8.8. IMPRESSION: 1. Acute myocardial infarction. 2. Acute on chronic systolic and diastolic congestive heart failure. 3. Hypertensive heart disease. 4. Acute DVT with IVC filter placed. 5. Suprapubic catheter with hematuria, resolved. 6. Anemia status post transfusion. PLAN: 1. Off anticoagulant and anti-platelet therapy. 2. Monitor blood counts. 3. Continue titration and optimization of anti-failure and antihypertensive regimen. Eric Brown M.D. DR: HILARIO JOB#: [id number] CC:
--- NOTE | 2018-09-10 02:45 | Progress Note ---
DATE: 09/09/2018 CARDIOLOGY PROGRESS NOTE SUBJECTIVE: Discharge planning in progress. No apparent respiratory distress. OBJECTIVE: VITAL SIGNS: Blood pressure 153/93, pulse 63, and respirations 18. Afebrile. LUNGS: Clear. CARDIAC: Regular. Normal S1, S2 with a 1/6 systolic apical murmur. ABDOMEN: Soft. No edema. LABORATORY AND DIAGNOSTIC DATA: Sodium 128, potassium 4.1, bicarb 17. BUN 39, creatinine 3.5. Magnesium 1.9. Albumin 1.8. Pro natriuretic peptide decreased to 23,000. IMPRESSION: 1. Acute myocardial infarction. 2. Hypertensive heart disease. 3. Acute on chronic systolic and diastolic congestive heart failure. 4. History of DVT status post IVC filter. PLAN: 1. Monitor renal function and urine output. 2. Off anticoagulant. 3. Advance antihypertensive and anti-failure regimen. Eric Brown M.D. DR: EDER JOB#: [id number] CC:
[2018-09-10 04:00] VITALS: BP 110/73
[2018-09-10] MEDS: HydrALAZINE 50mg tab ORAL SCH ×3 (06:09→21:57)
[2018-09-10] MEDS: Phenytoin 100mg cap ORAL SCH ×3 (06:09→21:56)
[2018-09-10] MEDS: cloNIDine 0.2mg Tab ORAL SCH ×3 (06:10→21:57)
[2018-09-10] MEDS: NovoLOG Insulin Flexpen SUBQ SCH ×4 (06:12→21:00)
--- NOTE | 2018-09-10 07:04 | NUR ---
HAND-OFF: Report given to Yo VIRGEN. Patient is in stable condition.
[2018-09-10 08:00] VITALS: BP 177/83
--- NOTE | 2018-09-10 08:03 | NUR ---
NURSE NOTES: Pt in bed with HOB in high fowlers, call light at bedside, bed alarm on, pt eating breakfast, pt Ox2 person and place, no IV access as pt refuses, pt has episodes of refusing care, suprapubic catheter draining yellow urine, pt denies pain, pt on room air, no s/s of distress or sob noted.
[2018-09-10] MEDS: Carvedilol 25mg Tab ORAL SCH ×2 (09:46→21:56)
[2018-09-10] MEDS: Citalopram Hydrobromide 10mg Tab ORAL SCH (09:46)
[2018-09-10] MEDS: Docusate 100mg cap ORAL SCH ×3 (09:46→17:34)
[2018-09-10] MEDS: Aspirin Baby 81mg ORAL SCH (09:47)
[2018-09-10] MEDS: Nephrovite tab (Rena-Vite) ORAL SCH (09:47)
[2018-09-10] MEDS: Imdur 30mg tab ORAL SCH (09:47)
[2018-09-10] MEDS: Donepezil 10mg tab ORAL SCH (09:47)
[2018-09-10] MEDS: Levodopa/Carbidopa 25/100 tab ORAL SCH ×3 (09:51→17:35)
[2018-09-10] MEDS: Nuedexta Capsule 20/10mg ORAL SCH ×2 (10:08→21:57)
--- NOTE | 2018-09-10 11:06 | General Progress Note ---
Assessment/Plan Problem List: (1) Acute renal insufficiency ICD Codes: N28.9 - Disorder of kidney and ureter, unspecified SNOMED: 79332294 (2) Leukocytosis ICD Codes: D72.829 - Elevated white blood cell count, unspecified SNOMED: 075411794 (3) Hematuria, gross ICD Codes: R31.0 - Gross hematuria SNOMED: 459237983 (4) Prostate hypertrophy ICD Codes: N40.0 - Benign prostatic hyperplasia without lower urinary tract symptoms SNOMED: 618313033 (5) UTI (urinary tract infection) ICD Codes: N39.0 - Urinary tract infection, site not specified SNOMED: 10186831 (6) Urethral stricture SNOMED: 65836839 (7) AMI (acute myocardial infarction) ICD Codes: I21.9 - Acute myocardial infarction, unspecified SNOMED: 73484326 Status: stable, progressing Assessment/Plan: suprapubic catheter to gravity cautious antiplt rx BP rx monitor labs- cr and sodium level transfuse as needed dc planning cleared by consultants Subjective ROS Limited/Unobtainable: No Constitutional: Reports: malaise, weakness HEENT: Reports: no symptoms Cardiovascular: Reports: no symptoms Respiratory: Reports: no symptoms Gastrointestinal/Abdominal: Reports: no symptoms Genitourinary: Reports: no symptoms Neurologic/Psychiatric: Reports: no symptoms Endocrine: Reports: no symptoms Hematologic/Lymphatic: Reports: no symptoms Allergies: Coded Allergies: NO KNOWN DRUG ALLERGIES (Unverified Allergy, Unknown, 04/11/14) All Systems: reviewed and negative except above Subjective no events. resting. no bleeding noted. labs noted. - cr getting better. sodium lower. no distress. Objective Last 24 Hour Vital Signs Date Time Temp Pulse Resp B/P (MAP) Pulse Ox O2 Delivery O2 Flow Rate FiO2 09/10/18 09:50 92 177/83 09/10/18 09:47 177/83 09/10/18 09:46 92 177/83 09/10/18 08:37 Room Air 09/10/18 08:00 97.9 92 20 177/83 (114) 09/10/18 07:50 92 09/10/18 06:10 161/72 09/10/18 06:09 161/72 09/10/18 04:00 98.3 80 18 110/73 (85) 98 09/10/18 03:46 71 09/10/18 00:00 98.0 81 16 136/74 (94) 97 09/10/18 00:00 76 09/09/18 23:45 76 09/09/18 22:00 168/83 09/09/18 21:31 168/83 09/09/18 21:30 78 168/83 09/09/18 21:00 Room Air 09/09/18 20:00 97.0 78 18 168/83 (111) 98 09/09/18 19:37 66 09/09/18 17:41 63 147/69 09/09/18 16:00 63 09/09/18 16:00 97.5 67 20 147/69 (95) 97 09/09/18 15:37 153/93 09/09/18 14:00 153/93 09/09/18 12:00 97.3 63 18 153/93 (113) 96 09/09/18 12:00 68 Intake and Output 09/09/18 09/10/18 19:00 07:00 Intake Total 240 ml 80 ml Output Total 400 ml 300 ml Balance -160 ml -220 ml Intake Oral 240 ml 80 ml Output Urine Total 400 ml 300 ml Height (Feet): 5 Height (Inches): 6.00 Weight (Pounds): 173 Objective General Appearance: WD/WN, alert Neck: supple Cardiovascular: normal rate, regular rhythm Respiratory/Chest: chest wall non-tender, lungs - rhonchi and wheezes Abdomen: normal bowel sounds, non tender, soft, no organomegaly Edema: 1+ edema Anthony Alejandro MD Sep 10, 2018 11:06
[2018-09-10 12:00] VITALS: BP 152/68
--- NOTE | 2018-09-10 12:02 | Nephrology Progress Note ---
Assessment/Plan Problem List: (1) Renal failure (ARF), acute on chronic (2) Prostate hypertrophy (3) Bilateral hydronephrosis (4) Urethral stricture (5) UTI (urinary tract infection) (6) Elevated troponin I level (7) Cardiomyopathy (8) Hypertensive kidney disease Assessment Acute on chronic renal failure Likely Diabetic Nephrosclerosis urinary retention on bladder scan Anemia of CKD Proteinuria / HypoAlbuminemia likely due to DM BPH HTN Parkinsons bilateral hydro elevated troponin Plan check 24 h urine CrCl Cr lowering CR 3.4 ON ADMISSION- PEAKED TO 4.2 NOW DOWN TO 3.5 HAS IVC FILTER NOW Crcl # 1 is error worsening anemia - bleeding via suprapubic cath Patient need to have an IVC filter to stop further anticoagulation treatment and in my opinion this is an emergency had cysto and supra pubic 09/01 24 h urine Cr Cl and protein ? Transfuse as needed recheck labs in am- transfuse as needed gastric support optimize cardiac status DC cogentin due to retention adjust BP meds Po Bicitra Kidney TONY noted bilateral hydro Uro intervention adjust BP meds Anemia potts check Uric Acid Urine studies up dose flomax per orders check dialntin level Left ventricular lazo in the basal regions are contracted normally however the apical segments are akinetic, 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 Mild left ventricular enlargement. Subjective ROS Limited/Unobtainable: No Constitutional: Reports: malaise Objective Objective Last 24 Hour Vital Signs Date Time Temp Pulse Resp B/P (MAP) Pulse Ox O2 Delivery O2 Flow Rate FiO2 09/10/18 09:50 92 177/83 09/10/18 09:47 177/83 09/10/18 09:46 92 177/83 09/10/18 08:37 Room Air 09/10/18 08:00 97.9 92 20 177/83 (114) 09/10/18 07:50 92 09/10/18 06:10 161/72 09/10/18 06:09 161/72 09/10/18 04:00 98.3 80 18 110/73 (85) 98 09/10/18 03:46 71 09/10/18 00:00 98.0 81 16 136/74 (94) 97 09/10/18 00:00 76 09/09/18 23:45 76 09/09/18 22:00 168/83 09/09/18 21:31 168/83 09/09/18 21:30 78 168/83 09/09/18 21:00 Room Air 09/09/18 20:00 97.0 78 18 168/83 (111) 98 09/09/18 19:37 66 09/09/18 17:41 63 147/69 09/09/18 16:00 63 09/09/18 16:00 97.5 67 20 147/69 (95) 97 09/09/18 15:37 153/93 09/09/18 14:00 153/93 Intake and Output 09/09/18 09/10/18 19:00 07:00 Intake Total 240 ml 80 ml Output Total 400 ml 300 ml Balance -160 ml -220 ml Intake Oral 240 ml 80 ml Output Urine Total 400 ml 300 ml Height (Feet): 5 Height (Inches): 6.00 Weight (Pounds): 173 General Appearance: no apparent distress Cardiovascular: normal rate Respiratory/Chest: decreased breath sounds Abdomen: distended Objective no change Sukhdeep Rodriguez MD Sep 10, 2018 12:02
[2018-09-10] MEDS ORDERED: Lactulose 20gm/30ml UDC ORAL PRN (12:45)
[2018-09-10 16:00] VITALS: BP 140/61
--- NOTE | 2018-09-10 18:37 | Pulmonology Progress Note ---
Assessment/Plan Assessment/Plan Pulmonary Progress Note HPI: The patient is a 73-year-old male admitted with urinary retention, acute renal failure. He has a history of hypertensive heart disease, BPH, seizure disorder. On initial evaluation, there was a concern about possible urinary retention, noted to have evidence of UTI. The patient had an elevated creatinine on admission. Acute on chronic renal failure, hyponayremia Noted to have features of Taketsubo's cardiomyopathy on Echo, patchy infiltrates on CXR No new complaints Assessment/Plan 1. Acute on chronic renal failure. 2. UTI 3. BPH. 4. Hypertension. 5. Seizure Disorder 6. Anemia 7. Likely pulmonary edema 8. Taketsubo Cardiomyopathy 9. Dementia PLAN diurese as able still with some edema on cxr oxygen as needed monitor imaging and labs later this week repeat cxr reviewed respiratory care follow up exam cards follow up for optimization oxygen needs reviewed impression, plan, and exam edited and reviewed in detail care discussed with RN Subjective Allergies: Coded Allergies: NO KNOWN DRUG ALLERGIES (Unverified Allergy, Unknown, 04/11/14) Subjective events noted comfortable no distress and alert Objective Vital Signs Noted Objective WDWN NAD clear breath sounds bilaterally without rhonchi or wheeze [id number] without MRG NABS nontender no HSM no CC mild edema nonfocal reviewed and edited Laboratory Tests 09/01/18 08:55: White Blood Count 10.9H, Red Blood Count 3.68L, Hemoglobin 10.9L, Hematocrit 32.9L, Mean Corpuscular Volume 89, Mean Corpuscular Hemoglobin 29.7, Mean Corpuscular Hemoglobin Concent 33.3, Red Cell Distribution Width 14.1, Platelet Count 335, Mean Platelet Volume 5.1L, Neutrophils (%) (Auto) 76.0H, Lymphocytes (%) (Auto) 10.9L, Monocytes (%) (Auto) 9.3, Eosinophils (%) (Auto) 2.7, Basophils (%) (Auto) 1.1, Prothrombin Time 26.7H, Prothromb Time International Ratio 2.7H, Activated Partial Thromboplast Time 49H, Sodium Level 140, Potassium Level 3.5, Chloride Level 103, Carbon Dioxide Level 19L, Anion Gap 19H , Blood Urea Nitrogen 42H, Creatinine 3.6H, Estimat Glomerular Filtration Rate , Glucose Level 122H, Uric Acid 6.9, Calcium Level 7.9L, Phosphorus Level 4.5, Magnesium Level 1.8, Total Bilirubin 0.3, Aspartate Amino Transf (AST/SGOT) 23, Alanine Aminotransferase (ALT/SGPT) < 6L, Alkaline Phosphatase 122H, C-Reactive Protein, Quantitative 8.0H, Pro-B-Type Natriuretic Peptide > 08466O, Total Protein 7.0, Albumin 1.9L, Globulin 5.1, Albumin/Globulin Ratio 0.4L Current Medications Medications (Trade) Dose Ordered Sig/Thu Route PRN Reason Start Time Stop Time Status Last Admin Dose Admin Acetaminophen (Tylenol) 650 mg Q6H PRN ORAL For Pain 08/26/18 12:30 09/18/18 12:29 Acetaminophen/ Hydrocodone Bitart ([place] 5/325) 1 tab Q1H PRN ORAL Mild Pain (Pain Scale 1-3) 09/01/18 12:00 09/01/18 20:00 Acetaminophen/ Hydrocodone Bitart ([place] 7.5/325) 1 tab Q1H PRN ORAL Moderate Pain (Pain Scale 4-6) 09/01/18 12:00 09/01/18 20:00 Al Hydroxide/Mg Hydroxide (Mylanta) 15 ml Q1H PRN ORAL gi upset 09/01/18 12:00 09/01/18 20:00 Amlodipine Besylate (Norvasc) 5 mg BID ORAL 08/30/18 18:00 09/27/18 13:59 08/31/18 17:13 Aspirin (ASA) 81 mg DAILY ORAL 08/27/18 09:00 09/26/18 08:59 08/31/18 09:45 Atropine Sulfate (Atropine 0.4mg/ ml) 0.5 mg Q5M PRN IVP HR<40 09/01/18 12:00 09/01/18 20:00 Carbidopa/Levodopa (Sinemet 25/100) 1 tab THREE TIMES A DAY ORAL 08/26/18 13:00 09/19/18 08:59 08/31/18 17:13 Carvedilol (Coreg) 25 mg EVERY 12 HOURS ORAL 08/30/18 09:00 09/29/18 08:59 08/31/18 21:21 Citalopram Hydrobromide (celeXA) 20 mg DAILY ORAL 08/27/18 09:00 09/19/18 08:59 08/31/18 09:46 Clonidine HCl (Catapres tab) 0.2 mg EVERY 8 HOURS ORAL 08/30/18 22:00 09/19/18 00:00 09/01/18 05:33 Dextromethorphan/ Quinidine (Nuedexta Capsule) 1 cap Q12HR ORAL 08/26/18 21:00 09/19/18 08:59 08/31/18 21:21 Dextrose (Dextrose 50%) 25 ml Q30M PRN IV Hypoglycemia 08/26/18 12:15 09/18/18 22:44 Dextrose (Dextrose 50%) 50 ml Q30M PRN IV Hypoglycemia 08/26/18 12:15 09/18/18 22:44 Diphenhydramine HCl (Benadryl) 25 mg Q15M PRN IVP Itching 09/01/18 12:00 09/01/18 20:00 Docusate Sodium (Colace) 100 mg TID ORAL 08/26/18 13:00 09/19/18 08:59 08/31/18 17:13 Donepezil HCl (Aricept) 10 mg DAILY ORAL 08/27/18 09:00 09/19/18 08:59 08/31/18 09:45 Epoetin Zaid (Epoetin Zaid-EPBX(NON ESRD)) 10,000 unit WED-WED-WED SUBQ 08/29/18 21:00 09/28/18 20:59 08/31/18 21:20 Fentanyl Citrate (Sublimaze 100 mcg/2 mL) 25 mcg Q10M PRN IV Moderate Pain (Pain Scale 4-6) 09/01/18 12:00 09/01/18 20:00 Finasteride (Proscar) 5 mg DAILY ORAL 08/27/18 09:00 09/19/18 08:59 08/31/18 09:46 Hydralazine HCl (Apresoline) 5 mg Q30M PRN IV SBP>160 / DBP>90 09/01/18 12:00 09/01/18 20:00 Hydralazine HCl (Apresoline) 25 mg Q4H PRN ORAL bp over 160 syst 08/28/18 14:00 09/27/18 13:59 Hydralazine HCl (Apresoline) 100 mg Q8HR ORAL 08/29/18 06:00 09/28/18 05:59 09/01/18 05:34 Hydromorphone HCl (Dilaudid) 0.5 mg Q15M PRN IVP Severe Pain (Pain Scale 7-10) 09/01/18 12:00 09/01/18 20:00 Insulin Aspart (NovoLOG) BEFORE MEALS AND HS SUBQ 08/26/18 16:30 09/19/18 06:29 09/01/18 05:34 Isosorbide Mononitrate (Imdur) 60 mg DAILY ORAL 08/30/18 09:00 09/29/18 08:59 08/31/18 09:45 Lactated Ringer's 1,000 ml @ 10 mls/hr Q24H IVLG 09/01/18 11:49 09/01/18 13:48 Lorazepam (Ativan 2mg/ml 1ml) 1 mg Q15M PRN IV For Anxiety 09/01/18 12:00 09/01/18 20:00 Lorazepam (Ativan 2mg/ml 1ml) 2 mg Q2H PRN IV For Anxiety 08/26/18 12:15 09/02/18 10:14 Midazolam HCl (Versed 2mg/2ml vial) 1 mg Q15M PRN IVP For Anxiety 09/01/18 12:00 09/01/18 20:00 Nitroglycerin (Ntg) 1 patch Q24H TDERMAL 08/27/18 15:00 09/26/18 14:59 08/31/18 13:51 Oxycodone/ Acetaminophen (Percocet 5-325) 1 tab Q1H PRN ORAL Severe Pain (Pain Scale 7-10) 09/01/18 12:00 09/01/18 20:00 Pantoprazole (Protonix) 40 mg BID ORAL 08/27/18 14:15 09/26/18 14:14 08/31/18 17:13 Phenytoin (Dilantin) 100 mg Q8HR ORAL 08/31/18 14:00 09/25/18 12:59 09/01/18 05:33 Piperacillin Sod/ Tazobactam Sod 3.375 gm/Sodium Chloride 110 ml @ 27.5 mls/hr Q12H IVPB 08/26/18 13:00 09/05/18 12:59 09/01/18 00:13 Pravastatin Sodium (Pravachol) 80 mg BEDTIME ORAL 08/26/18 21:00 09/19/18 20:59 08/31/18 21:20 Sodium Citrate (Bicitra) 30 ml BID ORAL 08/31/18 18:00 09/30/18 17:59 08/31/18 17:13 Tamsulosin HCl (Flomax) 0.4 mg BID ORAL 08/26/18 18:00 09/19/18 20:59 08/31/18 17:13 Vitamin B Complex/ Vit C/Folic Acid (Nephrovite) 1 tab DAILY ORAL 08/27/18 09:00 09/19/18 08:59 08/31/18 09:45 Subjective ROS Limited/Unobtainable: No Allergies: Coded Allergies: NO KNOWN DRUG ALLERGIES (Unverified Allergy, Unknown, 04/11/14) Objective Last 24 Hour Vital Signs Date Time Temp Pulse Resp B/P (MAP) Pulse Ox O2 Delivery O2 Flow Rate FiO2 09/10/18 17:35 66 140/61 09/10/18 16:00 96.3 66 20 140/61 (87) 97 09/10/18 16:00 58 09/10/18 14:42 152/68 09/10/18 14:42 152/68 09/10/18 12:00 98.1 76 20 152/68 (96) 97 09/10/18 11:51 69 09/10/18 09:50 92 177/83 09/10/18 09:47 177/83 09/10/18 09:46 92 177/83 09/10/18 08:37 Room Air 09/10/18 08:00 97.9 92 20 177/83 (114) 09/10/18 07:50 92 09/10/18 06:10 161/72 09/10/18 06:09 161/72 09/10/18 04:00 98.3 80 18 110/73 (85) 98 09/10/18 03:46 71 09/10/18 00:00 98.0 81 16 136/74 (94) 97 09/10/18 00:00 76 09/09/18 23:45 76 09/09/18 22:00 168/83 09/09/18 21:31 168/83 09/09/18 21:30 78 168/83 09/09/18 21:00 Room Air 09/09/18 20:00 97.0 78 18 168/83 (111) 98 09/09/18 19:37 66 Intake and Output 09/09/18 09/10/18 19:00 07:00 Intake Total 240 ml 80 ml Output Total 400 ml 300 ml Balance -160 ml -220 ml Intake Oral 240 ml 80 ml Output Urine Total 400 ml 300 ml Current Medications Medications (Trade) Dose Ordered Sig/Thu Route PRN Reason Start Time Stop Time Status Last Admin Dose Admin Acetaminophen (Tylenol) 650 mg Q6H PRN ORAL For Pain 08/26/18 12:30 09/18/18 12:29 Amlodipine Besylate (Norvasc) 5 mg BID ORAL 08/30/18 18:00 09/27/18 13:59 09/10/18 17:35 Aspirin (ASA) 81 mg DAILY ORAL 08/27/18 09:00 09/26/18 08:59 09/10/18 09:47 Carbidopa/Levodopa (Sinemet 25/100) 1 tab THREE TIMES A DAY ORAL 08/26/18 13:00 09/19/18 08:59 09/10/18 17:35 Carvedilol (Coreg) 25 mg EVERY 12 HOURS ORAL 08/30/18 09:00 09/29/18 08:59 09/10/18 09:46 Citalopram Hydrobromide (celeXA) 20 mg DAILY ORAL 08/27/18 09:00 09/19/18 08:59 09/10/18 09:46 Clonidine HCl (Catapres tab) 0.2 mg EVERY 8 HOURS ORAL 08/30/18 22:00 09/19/18 00:00 09/10/18 14:42 Dextromethorphan/ Quinidine (Nuedexta Capsule) 1 cap Q12HR ORAL 08/26/18 21:00 09/19/18 08:59 09/10/18 10:08 Dextrose (Dextrose 50%) 25 ml Q30M PRN IV Hypoglycemia 08/26/18 12:15 09/18/18 22:44 Dextrose (Dextrose 50%) 50 ml Q30M PRN IV Hypoglycemia 08/26/18 12:15 09/18/18 22:44 Docusate Sodium (Colace) 100 mg TID ORAL 08/26/18 13:00 09/19/18 08:59 09/10/18 17:34 Donepezil HCl (Aricept) 10 mg DAILY ORAL 08/27/18 09:00 09/19/18 08:59 09/10/18 09:47 Doxazosin Mesylate (Cardura) 2 mg BEDTIME ORAL 09/10/18 21:00 10/10/18 20:59 Epoetin Zaid (Epoetin Zaid-EPBX(NON ESRD)) 10,000 unit WED-WED-WED SUBQ 08/29/18 21:00 09/28/18 20:59 09/09/18 21:32 Finasteride (Proscar) 5 mg DAILY ORAL 08/27/18 09:00 09/19/18 08:59 09/10/18 09:47 Hydralazine HCl (Apresoline) 25 mg Q4H PRN ORAL bp over 160 syst 08/28/18 14:00 09/27/18 13:59 09/05/18 04:41 Hydralazine HCl (Apresoline) 100 mg Q8HR ORAL 08/29/18 06:00 09/28/18 05:59 09/10/18 14:42 Insulin Aspart (NovoLOG) BEFORE MEALS AND HS SUBQ 08/26/18 16:30 09/19/18 06:29 09/10/18 17:18 Isosorbide Mononitrate (Imdur) 60 mg DAILY ORAL 08/30/18 09:00 09/29/18 08:59 09/10/18 09:47 Lactulose (Cephulac) 30 gm TIDPRN PRN ORAL Constipation 09/10/18 12:45 10/10/18 12:44 09/10/18 12:52 Pantoprazole (Protonix) 40 mg BID ORAL 08/27/18 14:15 09/26/18 14:14 09/10/18 17:35 Phenytoin (Dilantin) 100 mg Q8HR ORAL 08/31/18 14:00 09/25/18 12:59 09/10/18 14:41 Pravastatin Sodium (Pravachol) 80 mg BEDTIME ORAL 08/26/18 21:00 09/19/18 20:59 09/09/18 21:32 Vitamin B Complex/ Vit C/Folic Acid (Nephrovite) 1 tab DAILY ORAL 08/27/18 09:00 09/19/18 08:59 09/10/18 09:47 Eric Pettit MD Sep 10, 2018 18:37
--- NOTE | 2018-09-10 19:19 | NUR ---
HAND-OFF: Report given to Mir Gallo.
[2018-09-10 20:00] VITALS: BP 149/67
[2018-09-10] MEDS: Doxazosin 4mg tab ORAL SCH (21:56)
[2018-09-11] VITALS (8 sets, daily range): BP systolic 115–163; BP diastolic 48–89
--- NOTE | 2018-09-11 05:15 | Progress Note ---
DATE: 09/10/2018 CARDIOLOGY PROGRESS NOTE SUBJECTIVE: The patient has no new bleeding problems. Electrolytes and renal parameters have improved. OBJECTIVE: VITAL SIGNS: Blood pressure 177/83, pulse 92, and respiratory 18. LUNGS: Clear. CARDIAC: Regular. S1, S2, and S4. ABDOMEN: Soft. EXTREMITIES: Trace edema. IMPRESSION: 1. Elevated blood pressure in the setting of hypertensive heart disease. 2. Acute on chronic systolic and diastolic congestive heart failure. 3. Status post acute myocardial infarction. 4. Pulmonary hypertension. 5. Status post IVC filter for acute DVT. PLAN: 1. Advance antihypertensives and anti-failure drugs. 2. Monitor hemoglobin and transfuse if less than 8 g. Eric Brown M.D. DR: LO JOB#: [id number] CC:
[2018-09-11] MEDS: HydrALAZINE 50mg tab ORAL SCH ×3 (05:49→21:55)
[2018-09-11] MEDS: cloNIDine 0.2mg Tab ORAL SCH ×3 (05:50→21:55)
[2018-09-11] MEDS: Phenytoin 100mg cap ORAL SCH ×3 (05:50→21:56)
[2018-09-11] MEDS: NovoLOG Insulin Flexpen SUBQ SCH ×4 (06:01→21:00)
--- NOTE | 2018-09-11 07:00 | NUR ---
HAND-OFF: Report given to Sara VIRGEN. Endorsed plan of care.
--- NOTE | 2018-09-11 07:01 | NUR ---
NURSE NOTES: Received report from PARAM Hester. The patient is sleeping on the bed without acute distress or shortness of breath. The patient's bed in the lowest position, call light in reach, and fall and aspiration precaution reinforced. No IV site available since the patient pulled out and refused. Dr. Alejandro was notified for no IV site. Will continue plan of care.
[2018-09-11 07:12] LABS: BASOPHILS % (AUTO) 1.5 % (0.0-2.0); EOSINOPHILS % (AUTO) 4.9 % (0.0-3.0); HEMATOCRIT 27.1 % (42.0-52.0); HEMOGLOBIN 8.8 G/DL (14.2-18.0); LYMPHOCYTES % (AUTO) 21.4 % (20.0-45.0); MEAN CORPUSCULAR VOLUME 90 FL (80-99); MONOCYTES % (AUTO) 13.4 % (1.0-10.0); NEUTROPHILS % (AUTO) 58.8 % (45.0-75.0); PLATELET COUNT 379 K/UL (150-450); RED CELL DISTRIBUTION WIDTH 17.7 % (11.6-14.8); WHITE BLOOD COUNT 6.4 K/UL (4.8-10.8)
[2018-09-11 07:36] LABS: ALANINE AMINOTRANSFERASE 6 U/L (12-78); ALBUMIN 1.8 G/DL (3.4-5.0); ALBUMIN/GLOBULIN RATIO 0.4 (1.0-2.7); ALKALINE PHOSPHATASE 160 U/L (46-116); ANION GAP 14 mmol/L (5-15); ASPARTATE AMINO TRANSFERASE 23 U/L (15-37); BILIRUBIN,TOTAL 0.3 MG/DL (0.2-1.0); BLOOD UREA NITROGEN 37 mg/dL (7-18); CALCIUM 7.9 MG/DL (8.5-10.1); CARBON DIOXIDE 20 MMOL/L (21-32); CHLORIDE 97 MMOL/L (98-107); CREATININE 3.5 MG/DL (0.55-1.30); POTASSIUM 3.9 MMOL/L (3.5-5.1); SODIUM 131 MMOL/L (136-145)
[2018-09-11 08:00] LABS: PHOSPHORUS 4.6 MG/DL (2.5-4.9)
[2018-09-11] MEDS: Donepezil 10mg tab ORAL SCH (09:42)
[2018-09-11] MEDS: Aspirin Baby 81mg ORAL SCH (09:42)
[2018-09-11] MEDS: Citalopram Hydrobromide 10mg Tab ORAL SCH (09:42)
[2018-09-11] MEDS: Docusate 100mg cap ORAL SCH ×3 (09:43→18:00)
[2018-09-11] MEDS: Carvedilol 25mg Tab ORAL SCH ×2 (09:43→21:00)
[2018-09-11] MEDS: Imdur 30mg tab ORAL SCH (09:44)
[2018-09-11] MEDS: Nuedexta Capsule 20/10mg ORAL SCH ×2 (09:44→21:00)
[2018-09-11] MEDS: Nephrovite tab (Rena-Vite) ORAL SCH (09:44)
[2018-09-11] MEDS: Levodopa/Carbidopa 25/100 tab ORAL SCH ×3 (09:45→18:00)
--- NOTE | 2018-09-11 10:54 | General Progress Note ---
Assessment/Plan Problem List: (1) Acute renal insufficiency ICD Codes: N28.9 - Disorder of kidney and ureter, unspecified SNOMED: 86255784 (2) Leukocytosis ICD Codes: D72.829 - Elevated white blood cell count, unspecified SNOMED: 266041993 (3) Hematuria, gross ICD Codes: R31.0 - Gross hematuria SNOMED: 196458773 (4) Prostate hypertrophy ICD Codes: N40.0 - Benign prostatic hyperplasia without lower urinary tract symptoms SNOMED: 551645680 (5) UTI (urinary tract infection) ICD Codes: N39.0 - Urinary tract infection, site not specified SNOMED: 40810556 (6) Urethral stricture SNOMED: 85092690 (7) AMI (acute myocardial infarction) ICD Codes: I21.9 - Acute myocardial infarction, unspecified SNOMED: 25810965 Status: stable, progressing Assessment/Plan: suprapubic catheter to gravity cautious antiplt rx BP rx monitor labs- cr and sodium level transfuse as needed dc planning Subjective ROS Limited/Unobtainable: No Constitutional: Reports: malaise, weakness HEENT: Reports: no symptoms Cardiovascular: Reports: no symptoms Respiratory: Reports: no symptoms Gastrointestinal/Abdominal: Reports: no symptoms Genitourinary: Reports: no symptoms Neurologic/Psychiatric: Reports: no symptoms Endocrine: Reports: no symptoms Hematologic/Lymphatic: Reports: anemia Allergies: Coded Allergies: NO KNOWN DRUG ALLERGIES (Unverified Allergy, Unknown, 04/11/14) All Systems: reviewed and negative except above Subjective no events. resting. no bleeding noted. labs noted. - cr getting better. sodium lower. no distress. Objective Last 24 Hour Vital Signs Date Time Temp Pulse Resp B/P (MAP) Pulse Ox O2 Delivery O2 Flow Rate FiO2 09/11/18 09:44 75 134/63 09/11/18 09:44 134/63 09/11/18 09:43 75 134/63 09/11/18 08:00 97.6 78 20 163/70 (101) 95 09/11/18 05:50 139/64 09/11/18 05:49 139/64 09/11/18 04:20 65 09/11/18 04:00 97.3 68 18 139/64 (89) 09/11/18 00:37 98.9 68 20 127/61 (83) 96 09/11/18 00:00 68 09/10/18 21:57 149/67 09/10/18 21:57 149/67 09/10/18 21:56 68 149/67 09/10/18 21:00 Room Air 09/10/18 20:00 97.5 68 20 149/67 (94) 100 09/10/18 20:00 97.5 68 20 149/67 (94) 100 09/10/18 20:00 66 09/10/18 17:35 66 140/61 09/10/18 16:00 96.3 66 20 140/61 (87) 97 09/10/18 16:00 58 09/10/18 14:42 152/68 09/10/18 14:42 152/68 09/10/18 12:00 98.1 76 20 152/68 (96) 97 09/10/18 11:51 69 Intake and Output 09/10/18 09/11/18 19:00 07:00 Intake Total 325 ml Output Total 300 ml 300 ml Balance 25 ml -300 ml Intake Oral 325 ml Output Urine Total 300 ml 300 ml # Bowel Movements 3 Laboratory Tests 09/11/18 05:05: White Blood Count 6.4, Red Blood Count 3.00L, Hemoglobin 8.8L, Hematocrit 27.1L , Mean Corpuscular Volume 90, Mean Corpuscular Hemoglobin 29.3, Mean Corpuscular Hemoglobin Concent 32.5, Red Cell Distribution Width 17.7H, Platelet Count 379, Mean Platelet Volume 4.8L, Neutrophils (%) (Auto) 58.8, Lymphocytes (%) (Auto) 21.4, Monocytes (%) (Auto) 13.4H, Eosinophils (%) (Auto) 4.9H, Basophils (%) (Auto) 1.5, Sodium Level 131L, Potassium Level 3.9, Chloride Level 97L, Carbon Dioxide Level 20L, Anion Gap 14, Blood Urea Nitrogen 37H, Creatinine 3.5H, Estimat Glomerular Filtration Rate , Glucose Level 79, Osmolality 291L, Uric Acid 9.7H, Calcium Level 7.9L, Phosphorus Level 4.6, Magnesium Level 1.9, Total Bilirubin 0.3, Aspartate Amino Transf (AST/SGOT) 23, Alanine Aminotransferase (ALT/SGPT) 6L, Alkaline Phosphatase 160H, Pro-B-Type Natriuretic Peptide 30064V, Total Protein 6.3L, Albumin 1.8L, Globulin 4.5, Albumin/Globulin Ratio 0.4L Height (Feet): 5 Height (Inches): 6.00 Weight (Pounds): 173 Objective General Appearance: WD/WN, alert Neck: supple Cardiovascular: normal rate, regular rhythm Respiratory/Chest: chest wall non-tender, lungs - rhonchi and wheezes Abdomen: normal bowel sounds, non tender, soft, no organomegaly Edema: 1+ edema Anthony Alejandro MD Sep 11, 2018 10:53
--- NOTE | 2018-09-11 12:00 | NUR ---
NURSE NOTES: Dr. Belle came in for 24 hour creatinine clearance urine test result. The order input yesterday but not initiated. Order carried out today and notified to Dr. Alejandro who put discharge order.
--- NOTE | 2018-09-11 12:00 | NUR ---
NURSE NOTES: Notified Dr. Alejandro regarding Sodium of 131 and drop in hemoglobin level of 8.8. Will follow up with Dr. Alejandro for keeping or removal of suprapubic cathether. Will continue to care the patient. Addendum: 09/11/18 at 1252 by Usman Garrido RN *Will continue to work on discharge order unless change in patient condition.
--- NOTE | 2018-09-11 14:06 | Nephrology Progress Note ---
Assessment/Plan Problem List: (1) Renal failure (ARF), acute on chronic (2) Prostate hypertrophy (3) Bilateral hydronephrosis (4) Urethral stricture (5) UTI (urinary tract infection) (6) Elevated troponin I level (7) Cardiomyopathy (8) Hypertensive kidney disease Assessment Acute on chronic renal failure Likely Diabetic Nephrosclerosis urinary retention on bladder scan Anemia of CKD Proteinuria / HypoAlbuminemia likely due to DM BPH HTN Parkinsons bilateral hydro elevated troponin Plan check 24 h urine CrCl Add allopurinola Cr stable CR 3.4 ON ADMISSION- PEAKED TO 4.2 NOW DOWN TO 3.5 HAS IVC FILTER NOW Crcl # 1 is error worsening anemia - bleeding via suprapubic cath Patient need to have an IVC filter to stop further anticoagulation treatment and in my opinion this is an emergency had cysto and supra pubic 09/01 24 h urine Cr Cl and protein ? Transfuse as needed recheck labs in am- transfuse as needed gastric support optimize cardiac status DC cogentin due to retention adjust BP meds Po Bicitra Kidney TONY noted bilateral hydro Uro intervention adjust BP meds Anemia potts check Uric Acid Urine studies up dose flomax per orders check dialntin level Left ventricular lazo in the basal regions are contracted normally however the apical segments are akinetic, 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 Mild left ventricular enlargement. Subjective ROS Limited/Unobtainable: No Constitutional: Reports: malaise Objective Objective Last 24 Hour Vital Signs Date Time Temp Pulse Resp B/P (MAP) Pulse Ox O2 Delivery O2 Flow Rate FiO2 09/11/18 13:36 129/68 09/11/18 13:20 129/68 (88) 09/11/18 12:00 98.1 66 20 115/48 (70) 95 09/11/18 09:44 75 134/63 09/11/18 09:44 134/63 09/11/18 09:43 75 134/63 09/11/18 09:00 Room Air 09/11/18 08:00 63 09/11/18 08:00 97.6 78 20 163/70 (101) 95 09/11/18 05:50 139/64 09/11/18 05:49 139/64 09/11/18 04:20 65 09/11/18 04:00 97.3 68 18 139/64 (89) 09/11/18 00:37 98.9 68 20 127/61 (83) 96 09/11/18 00:00 68 09/10/18 21:57 149/67 09/10/18 21:57 149/67 09/10/18 21:56 68 149/67 09/10/18 21:00 Room Air 09/10/18 20:00 97.5 68 20 149/67 (94) 100 09/10/18 20:00 97.5 68 20 149/67 (94) 100 09/10/18 20:00 66 09/10/18 17:35 66 140/61 09/10/18 16:00 96.3 66 20 140/61 (87) 97 09/10/18 16:00 58 09/10/18 14:42 152/68 09/10/18 14:42 15268 Intake and Output 09/10/18 09/11/18 19:00 07:00 Intake Total 325 ml Output Total 300 ml 300 ml Balance 25 ml -300 ml Intake Oral 325 ml Output Urine Total 300 ml 300 ml # Bowel Movements 3 Laboratory Tests 09/11/18 05:05: White Blood Count 6.4, Red Blood Count 3.00L, Hemoglobin 8.8L, Hematocrit 27.1L , Mean Corpuscular Volume 90, Mean Corpuscular Hemoglobin 29.3, Mean Corpuscular Hemoglobin Concent 32.5, Red Cell Distribution Width 17.7H, Platelet Count 379, Mean Platelet Volume 4.8L, Neutrophils (%) (Auto) 58.8, Lymphocytes (%) (Auto) 21.4, Monocytes (%) (Auto) 13.4H, Eosinophils (%) (Auto) 4.9H, Basophils (%) (Auto) 1.5, Sodium Level 131L, Potassium Level 3.9, Chloride Level 97L, Carbon Dioxide Level 20L, Anion Gap 14, Blood Urea Nitrogen 37H, Creatinine 3.5H, Estimat Glomerular Filtration Rate , Glucose Level 79, Osmolality 291L, Uric Acid 9.7H, Calcium Level 7.9L, Phosphorus Level 4.6, Magnesium Level 1.9, Total Bilirubin 0.3, Aspartate Amino Transf (AST/SGOT) 23, Alanine Aminotransferase (ALT/SGPT) 6L, Alkaline Phosphatase 160H, Pro-B-Type Natriuretic Peptide 62306P, Total Protein 6.3L, Albumin 1.8L, Globulin 4.5, Albumin/Globulin Ratio 0.4L Height (Feet): 5 Height (Inches): 6.00 Weight (Pounds): 173 General Appearance: no apparent distress Objective no change Sukhdeep Rodriguez MD Sep 11, 2018 14:06
--- NOTE | 2018-09-11 18:51 | Pulmonology Progress Note ---
Assessment/Plan Assessment/Plan Pulmonary Progress Note HPI: The patient is a 73-year-old male admitted with urinary retention, acute renal failure. He has a history of hypertensive heart disease, BPH, seizure disorder. On initial evaluation, there was a concern about possible urinary retention, noted to have evidence of UTI. The patient had an elevated creatinine on admission. Acute on chronic renal failure, hyponayremia Noted to have features of Taketsubo's cardiomyopathy on Echo, patchy infiltrates on CXR No new complaints Assessment/Plan 1. Acute on chronic renal failure. 2. UTI 3. BPH. 4. Hypertension. 5. Seizure Disorder 6. Anemia 7. Likely pulmonary edema 8. Taketsubo Cardiomyopathy 9. Dementia PLAN diurese as able still with some edema on cxr oxygen as needed monitor imaging and labs later this week repeat cxr reviewed respiratory care follow up exam cards follow up for optimization oxygen needs reviewed impression, plan, and exam edited and reviewed in detail care discussed with RN Subjective Allergies: Coded Allergies: NO KNOWN DRUG ALLERGIES (Unverified Allergy, Unknown, 04/11/14) Subjective events noted comfortable no distress and alert Objective Vital Signs Noted Objective WDWN NAD clear breath sounds bilaterally without rhonchi or wheeze [id number] without MRG NABS nontender no HSM no CC mild edema nonfocal reviewed and edited Laboratory Tests 09/01/18 08:55: White Blood Count 10.9H, Red Blood Count 3.68L, Hemoglobin 10.9L, Hematocrit 32.9L, Mean Corpuscular Volume 89, Mean Corpuscular Hemoglobin 29.7, Mean Corpuscular Hemoglobin Concent 33.3, Red Cell Distribution Width 14.1, Platelet Count 335, Mean Platelet Volume 5.1L, Neutrophils (%) (Auto) 76.0H, Lymphocytes (%) (Auto) 10.9L, Monocytes (%) (Auto) 9.3, Eosinophils (%) (Auto) 2.7, Basophils (%) (Auto) 1.1, Prothrombin Time 26.7H, Prothromb Time International Ratio 2.7H, Activated Partial Thromboplast Time 49H, Sodium Level 140, Potassium Level 3.5, Chloride Level 103, Carbon Dioxide Level 19L, Anion Gap 19H , Blood Urea Nitrogen 42H, Creatinine 3.6H, Estimat Glomerular Filtration Rate , Glucose Level 122H, Uric Acid 6.9, Calcium Level 7.9L, Phosphorus Level 4.5, Magnesium Level 1.8, Total Bilirubin 0.3, Aspartate Amino Transf (AST/SGOT) 23, Alanine Aminotransferase (ALT/SGPT) < 6L, Alkaline Phosphatase 122H, C-Reactive Protein, Quantitative 8.0H, Pro-B-Type Natriuretic Peptide > 31580W, Total Protein 7.0, Albumin 1.9L, Globulin 5.1, Albumin/Globulin Ratio 0.4L Current Medications Medications (Trade) Dose Ordered Sig/Thu Route PRN Reason Start Time Stop Time Status Last Admin Dose Admin Acetaminophen (Tylenol) 650 mg Q6H PRN ORAL For Pain 08/26/18 12:30 09/18/18 12:29 Acetaminophen/ Hydrocodone Bitart ([place] 5/325) 1 tab Q1H PRN ORAL Mild Pain (Pain Scale 1-3) 09/01/18 12:00 09/01/18 20:00 Acetaminophen/ Hydrocodone Bitart ([place] 7.5/325) 1 tab Q1H PRN ORAL Moderate Pain (Pain Scale 4-6) 09/01/18 12:00 09/01/18 20:00 Al Hydroxide/Mg Hydroxide (Mylanta) 15 ml Q1H PRN ORAL gi upset 09/01/18 12:00 09/01/18 20:00 Amlodipine Besylate (Norvasc) 5 mg BID ORAL 08/30/18 18:00 09/27/18 13:59 08/31/18 17:13 Aspirin (ASA) 81 mg DAILY ORAL 08/27/18 09:00 09/26/18 08:59 08/31/18 09:45 Atropine Sulfate (Atropine 0.4mg/ ml) 0.5 mg Q5M PRN IVP HR<40 09/01/18 12:00 09/01/18 20:00 Carbidopa/Levodopa (Sinemet 25/100) 1 tab THREE TIMES A DAY ORAL 08/26/18 13:00 09/19/18 08:59 08/31/18 17:13 Carvedilol (Coreg) 25 mg EVERY 12 HOURS ORAL 08/30/18 09:00 09/29/18 08:59 08/31/18 21:21 Citalopram Hydrobromide (celeXA) 20 mg DAILY ORAL 08/27/18 09:00 09/19/18 08:59 08/31/18 09:46 Clonidine HCl (Catapres tab) 0.2 mg EVERY 8 HOURS ORAL 08/30/18 22:00 09/19/18 00:00 09/01/18 05:33 Dextromethorphan/ Quinidine (Nuedexta Capsule) 1 cap Q12HR ORAL 08/26/18 21:00 09/19/18 08:59 08/31/18 21:21 Dextrose (Dextrose 50%) 25 ml Q30M PRN IV Hypoglycemia 08/26/18 12:15 09/18/18 22:44 Dextrose (Dextrose 50%) 50 ml Q30M PRN IV Hypoglycemia 08/26/18 12:15 09/18/18 22:44 Diphenhydramine HCl (Benadryl) 25 mg Q15M PRN IVP Itching 09/01/18 12:00 09/01/18 20:00 Docusate Sodium (Colace) 100 mg TID ORAL 08/26/18 13:00 09/19/18 08:59 08/31/18 17:13 Donepezil HCl (Aricept) 10 mg DAILY ORAL 08/27/18 09:00 09/19/18 08:59 08/31/18 09:45 Epoetin Zaid (Epoetin Zaid-EPBX(NON ESRD)) 10,000 unit WED-WED-WED SUBQ 08/29/18 21:00 09/28/18 20:59 08/31/18 21:20 Fentanyl Citrate (Sublimaze 100 mcg/2 mL) 25 mcg Q10M PRN IV Moderate Pain (Pain Scale 4-6) 09/01/18 12:00 09/01/18 20:00 Finasteride (Proscar) 5 mg DAILY ORAL 08/27/18 09:00 09/19/18 08:59 08/31/18 09:46 Hydralazine HCl (Apresoline) 5 mg Q30M PRN IV SBP>160 / DBP>90 09/01/18 12:00 09/01/18 20:00 Hydralazine HCl (Apresoline) 25 mg Q4H PRN ORAL bp over 160 syst 08/28/18 14:00 09/27/18 13:59 Hydralazine HCl (Apresoline) 100 mg Q8HR ORAL 08/29/18 06:00 09/28/18 05:59 09/01/18 05:34 Hydromorphone HCl (Dilaudid) 0.5 mg Q15M PRN IVP Severe Pain (Pain Scale 7-10) 09/01/18 12:00 09/01/18 20:00 Insulin Aspart (NovoLOG) BEFORE MEALS AND HS SUBQ 08/26/18 16:30 09/19/18 06:29 09/01/18 05:34 Isosorbide Mononitrate (Imdur) 60 mg DAILY ORAL 08/30/18 09:00 09/29/18 08:59 08/31/18 09:45 Lactated Ringer's 1,000 ml @ 10 mls/hr Q24H IVLG 09/01/18 11:49 09/01/18 13:48 Lorazepam (Ativan 2mg/ml 1ml) 1 mg Q15M PRN IV For Anxiety 09/01/18 12:00 09/01/18 20:00 Lorazepam (Ativan 2mg/ml 1ml) 2 mg Q2H PRN IV For Anxiety 08/26/18 12:15 09/02/18 10:14 Midazolam HCl (Versed 2mg/2ml vial) 1 mg Q15M PRN IVP For Anxiety 09/01/18 12:00 09/01/18 20:00 Nitroglycerin (Ntg) 1 patch Q24H TDERMAL 08/27/18 15:00 09/26/18 14:59 08/31/18 13:51 Oxycodone/ Acetaminophen (Percocet 5-325) 1 tab Q1H PRN ORAL Severe Pain (Pain Scale 7-10) 09/01/18 12:00 09/01/18 20:00 Pantoprazole (Protonix) 40 mg BID ORAL 08/27/18 14:15 09/26/18 14:14 08/31/18 17:13 Phenytoin (Dilantin) 100 mg Q8HR ORAL 08/31/18 14:00 09/25/18 12:59 09/01/18 05:33 Piperacillin Sod/ Tazobactam Sod 3.375 gm/Sodium Chloride 110 ml @ 27.5 mls/hr Q12H IVPB 08/26/18 13:00 09/05/18 12:59 09/01/18 00:13 Pravastatin Sodium (Pravachol) 80 mg BEDTIME ORAL 08/26/18 21:00 09/19/18 20:59 08/31/18 21:20 Sodium Citrate (Bicitra) 30 ml BID ORAL 08/31/18 18:00 09/30/18 17:59 08/31/18 17:13 Tamsulosin HCl (Flomax) 0.4 mg BID ORAL 08/26/18 18:00 09/19/18 20:59 08/31/18 17:13 Vitamin B Complex/ Vit C/Folic Acid (Nephrovite) 1 tab DAILY ORAL 08/27/18 09:00 09/19/18 08:59 08/31/18 09:45 Subjective ROS Limited/Unobtainable: No Allergies: Coded Allergies: NO KNOWN DRUG ALLERGIES (Unverified Allergy, Unknown, 04/11/14) Objective Last 24 Hour Vital Signs Date Time Temp Pulse Resp B/P (MAP) Pulse Ox O2 Delivery O2 Flow Rate FiO2 09/11/18 18:00 81 128/66 09/11/18 16:00 98.7 81 20 128/66 (86) 96 09/11/18 14:00 129/68 09/11/18 13:36 129/68 09/11/18 13:20 129/68 (88) 09/11/18 12:00 63 09/11/18 12:00 98.1 66 20 115/48 (70) 95 09/11/18 09:44 75 134/63 09/11/18 09:44 134/63 09/11/18 09:43 75 134/63 09/11/18 09:00 Room Air 09/11/18 08:00 63 09/11/18 08:00 97.6 78 20 163/70 (101) 95 09/11/18 05:50 139/64 09/11/18 05:49 139/64 09/11/18 04:20 65 09/11/18 04:00 97.3 68 18 139/64 (89) 09/11/18 00:37 98.9 68 20 127/61 (83) 96 09/11/18 00:00 68 09/10/18 21:57 149/67 09/10/18 21:57 149/67 09/10/18 21:56 68 149/67 09/10/18 21:00 Room Air 09/10/18 20:00 97.5 68 20 149/67 (94) 100 09/10/18 20:00 97.5 68 20 149/67 (94) 100 09/10/18 20:00 66 Intake and Output 09/10/18 09/11/18 19:00 07:00 Intake Total 325 ml Output Total 300 ml 300 ml Balance 25 ml -300 ml Intake Oral 325 ml Output Urine Total 300 ml 300 ml # Bowel Movements 3 Laboratory Tests 09/11/18 05:05: White Blood Count 6.4, Red Blood Count 3.00L, Hemoglobin 8.8L, Hematocrit 27.1L , Mean Corpuscular Volume 90, Mean Corpuscular Hemoglobin 29.3, Mean Corpuscular Hemoglobin Concent 32.5, Red Cell Distribution Width 17.7H, Platelet Count 379, Mean Platelet Volume 4.8L, Neutrophils (%) (Auto) 58.8, Lymphocytes (%) (Auto) 21.4, Monocytes (%) (Auto) 13.4H, Eosinophils (%) (Auto) 4.9H, Basophils (%) (Auto) 1.5, Sodium Level 131L, Potassium Level 3.9, Chloride Level 97L, Carbon Dioxide Level 20L, Anion Gap 14, Blood Urea Nitrogen 37H, Creatinine 3.5H, Estimat Glomerular Filtration Rate , Glucose Level 79, Osmolality 291L, Uric Acid 9.7H, Calcium Level 7.9L, Phosphorus Level 4.6, Magnesium Level 1.9, Total Bilirubin 0.3, Aspartate Amino Transf (AST/SGOT) 23, Alanine Aminotransferase (ALT/SGPT) 6L, Alkaline Phosphatase 160H, Pro-B-Type Natriuretic Peptide 31135O, Total Protein 6.3L, Albumin 1.8L, Globulin 4.5, Albumin/Globulin Ratio 0.4L Current Medications Medications (Trade) Dose Ordered Sig/Thu Route PRN Reason Start Time Stop Time Status Last Admin Dose Admin Acetaminophen (Tylenol) 650 mg Q6H PRN ORAL For Pain 08/26/18 12:30 09/18/18 12:29 Allopurinol (Allopurinol) 300 mg DAILY ORAL 09/11/18 14:15 10/11/18 14:14 09/11/18 15:12 Amlodipine Besylate (Norvasc) 5 mg BID ORAL 08/30/18 18:00 09/27/18 13:59 09/11/18 09:44 Aspirin (ASA) 81 mg DAILY ORAL 08/27/18 09:00 09/26/18 08:59 09/11/18 09:42 Carbidopa/Levodopa (Sinemet 25/100) 1 tab THREE TIMES A DAY ORAL 08/26/18 13:00 09/19/18 08:59 09/11/18 13:35 Carvedilol (Coreg) 25 mg EVERY 12 HOURS ORAL 08/30/18 09:00 09/29/18 08:59 09/11/18 09:43 Citalopram Hydrobromide (celeXA) 20 mg DAILY ORAL 08/27/18 09:00 09/19/18 08:59 09/11/18 09:42 Clonidine HCl (Catapres tab) 0.2 mg EVERY 8 HOURS ORAL 08/30/18 22:00 09/19/18 00:00 09/11/18 05:50 Dextromethorphan/ Quinidine (Nuedexta Capsule) 1 cap Q12HR ORAL 08/26/18 21:00 09/19/18 08:59 09/11/18 09:44 Dextrose (Dextrose 50%) 25 ml Q30M PRN IV Hypoglycemia 08/26/18 12:15 09/18/18 22:44 Dextrose (Dextrose 50%) 50 ml Q30M PRN IV Hypoglycemia 08/26/18 12:15 09/18/18 22:44 Docusate Sodium (Colace) 100 mg TID ORAL 08/26/18 13:00 09/19/18 08:59 09/11/18 13:35 Donepezil HCl (Aricept) 10 mg DAILY ORAL 08/27/18 09:00 09/19/18 08:59 09/11/18 09:42 Doxazosin Mesylate (Cardura) 2 mg BEDTIME ORAL 09/10/18 21:00 10/10/18 20:59 09/10/18 21:56 Epoetin Zaid (Epoetin Zaid-EPBX(NON ESRD)) 10,000 unit WED-WED-WED SUBQ 08/29/18 21:00 09/28/18 20:59 09/09/18 21:32 Finasteride (Proscar) 5 mg DAILY ORAL 08/27/18 09:00 09/19/18 08:59 09/11/18 09:45 Hydralazine HCl (Apresoline) 25 mg Q4H PRN ORAL bp over 160 syst 08/28/18 14:00 09/27/18 13:59 09/05/18 04:41 Hydralazine HCl (Apresoline) 100 mg Q8HR ORAL 08/29/18 06:00 09/28/18 05:59 09/11/18 13:36 Insulin Aspart (NovoLOG) BEFORE MEALS AND HS SUBQ 08/26/18 16:30 09/19/18 06:29 09/11/18 06:01 Isosorbide Mononitrate (Imdur) 60 mg DAILY ORAL 08/30/18 09:00 09/29/18 08:59 09/11/18 09:44 Lactulose (Cephulac) 30 gm TIDPRN PRN ORAL Constipation 09/10/18 12:45 10/10/18 12:44 09/10/18 12:52 Pantoprazole (Protonix) 40 mg BID ORAL 08/27/18 14:15 09/26/18 14:14 09/11/18 09:45 Phenytoin (Dilantin) 100 mg Q8HR ORAL 08/31/18 14:00 09/25/18 12:59 09/11/18 13:36 Pravastatin Sodium (Pravachol) 80 mg BEDTIME ORAL 08/26/18 21:00 09/19/18 20:59 09/10/18 21:58 Vitamin B Complex/ Vit C/Folic Acid (Nephrovite) 1 tab DAILY ORAL 08/27/18 09:00 09/19/18 08:59 09/11/18 09:44 Eric Pettit MD Sep 11, 2018 18:51
--- NOTE | 2018-09-11 19:15 | NUR ---
HAND-OFF: Report given to PARAM Hester. Informed that 24 hour creatinine clearance urine collection started @ 0600 09/11/2018 and will end @ 0600 09/12/2018. The patient is resting on the bed without acute distress or shortness of breath. The patient's bed in the lowest position, call light in reach, and fall and aspiration precaution reinforced. Endorsed plan of care.
--- NOTE | 2018-09-11 19:16 | NUR ---
NURSE NOTES: Got report from Sara VIRGEN. Pt in stable condition. Denies any pain. No s/s of distress or discomfort noted. Pt resting in bed comfortably. Bed in low and locked position, call light within reach, bedside table within reach. Continue to monitor.
[2018-09-11] MEDS: Doxazosin 4mg tab ORAL SCH (21:00)
--- NOTE | 2018-09-11 23:30 | Progress Note ---
DATE: 09/11/2018 CARDIOLOGY PROGRESS NOTE SUBJECTIVE: The patient is in no distress. Renal function has improved. Electrolyte abnormalities persists. Blood pressure remained labile. Monitored rhythm, sinus. OBJECTIVE: VITAL SIGNS: Blood pressure 127/61 to 163/70, heart rate 65 to 78, respiratory rate 18 to 20, and afebrile. LUNGS: Bilateral breath sounds. CARDIAC: Regular rhythm and rate. Normal S1 and S2 with a 1/6 systolic murmur at apex. ABDOMEN: Soft. EXTREMITIES: No edema. LABORATORY DATA: White count 6.4 and hemoglobin 8.8. Magnesium 1.9. Pro-natriuretic peptide 22,000. BUN 37, creatinine 3.5, potassium 3.9, and sodium 131. IMPRESSION: 1. Acute myocardial infarction. 2. Acute on chronic systolic congestive heart failure. 3. Urethral stricture, suprapubic catheter. 4. Metabolic acidosis. 5. Hypertensive heart disease with labile blood pressure. 6. History of DVT and IVC filter. 7. Pulmonary hypertension. 8. Anemia. PLAN: 1. Maximize anti-failure regimen and antihypertensive. 2. Continue to monitor renal parameters. 3. Maintain anti-lipid therapy and antiplatelet therapy. 4. The patient is at high risk due to comorbidities and multiple medication regimen. Eric Brown M.D. DR: DARREN JOB#: [id number] CC:
[2018-09-12] VITALS: BP 111/60
[2018-09-12 04:20] VITALS: BP 137/65
[2018-09-12] MEDS: HydrALAZINE 50mg tab ORAL SCH ×2 (05:44→14:11)
[2018-09-12] MEDS: cloNIDine 0.2mg Tab ORAL SCH ×2 (05:45→14:12)
[2018-09-12] MEDS: Phenytoin 100mg cap ORAL SCH ×2 (05:45→14:12)
[2018-09-12] MEDS: NovoLOG Insulin Flexpen SUBQ SCH ×2 (06:30→12:18)
--- NOTE | 2018-09-12 07:00 | NUR ---
HAND-OFF: Report given to Sara VIRGEN. Endorsed plan of care.
--- NOTE | 2018-09-12 07:20 | NUR ---
NURSE NOTES: Received report from PARAM Hester. 24 hour creatinine clearance collection completed as of 09/12/2018 @0600. The patient's bed in the lowest position, call light in reach, and fall and aspiration precaution reinforced. Will continue plan of care.
[2018-09-12 08:00] VITALS: BP 118/50
--- NOTE | 2018-09-12 08:17 | General Progress Note ---
Assessment/Plan Problem List: (1) Acute renal insufficiency ICD Codes: N28.9 - Disorder of kidney and ureter, unspecified SNOMED: 33807947 (2) Leukocytosis ICD Codes: D72.829 - Elevated white blood cell count, unspecified SNOMED: 912351930 (3) Hematuria, gross ICD Codes: R31.0 - Gross hematuria SNOMED: 442747364 (4) Prostate hypertrophy ICD Codes: N40.0 - Benign prostatic hyperplasia without lower urinary tract symptoms SNOMED: 417796583 (5) UTI (urinary tract infection) ICD Codes: N39.0 - Urinary tract infection, site not specified SNOMED: 20857125 (6) Urethral stricture SNOMED: 48643326 (7) AMI (acute myocardial infarction) ICD Codes: I21.9 - Acute myocardial infarction, unspecified SNOMED: 47812052 Status: stable, progressing Assessment/Plan: suprapubic catheter to gravity cautious antiplt rx BP rx monitor labs- cr and sodium level 24 hr urine collection transfuse as needed dc planning if ok with nephro Subjective ROS Limited/Unobtainable: No Constitutional: Reports: malaise, weakness HEENT: Reports: no symptoms Cardiovascular: Reports: no symptoms Respiratory: Reports: no symptoms Gastrointestinal/Abdominal: Reports: no symptoms Genitourinary: Reports: no symptoms Neurologic/Psychiatric: Reports: anxiety, emotional problems Endocrine: Reports: no symptoms Hematologic/Lymphatic: Reports: anemia Allergies: Coded Allergies: NO KNOWN DRUG ALLERGIES (Unverified Allergy, Unknown, 04/11/14) All Systems: reviewed and negative except above Subjective no events. dc cancelled per nephro recs- pt needs 24hr urine collection. no bleeding noted. no cp/sob Objective Last 24 Hour Vital Signs Date Time Temp Pulse Resp B/P (MAP) Pulse Ox O2 Delivery O2 Flow Rate FiO2 09/12/18 05:45 137/65 09/12/18 05:44 137/65 09/12/18 04:28 72 09/12/18 04:20 97.7 78 16 137/65 (89) 98 09/12/18 00:00 98.0 77 18 111/60 (77) 97 09/12/18 00:00 69 09/11/18 21:55 153/76 09/11/18 21:55 153/76 09/11/18 21:00 Room Air 09/11/18 21:00 80 153/76 09/11/18 21:00 153/76 (101) 09/11/18 20:00 88 09/11/18 20:00 98.2 88 18 153/89 (110) 96 09/11/18 18:00 81 128/66 09/11/18 16:00 72 09/11/18 16:00 98.7 81 20 128/66 (86) 96 09/11/18 14:00 129/68 09/11/18 13:36 129/68 09/11/18 13:20 129/68 (88) 09/11/18 12:00 63 09/11/18 12:00 98.1 66 20 115/48 (70) 95 09/11/18 09:44 75 134/63 09/11/18 09:44 134/63 09/11/18 09:43 75 134/63 09/11/18 09:00 Room Air Intake and Output 09/11/18 09/12/18 18:59 06:59 Intake Total 120 ml Output Total 600 ml Balance 120 ml -600 ml Intake Oral 120 ml Output Urine Total 600 ml Height (Feet): 5 Height (Inches): 6.00 Weight (Pounds): 172 Objective General Appearance: WD/WN, alert Neck: supple Cardiovascular: normal rate, regular rhythm Respiratory/Chest: chest wall non-tender, lungs - rhonchi and wheezes Abdomen: normal bowel sounds, non tender, soft, no organomegaly Edema: 1+ edema Anthony Alejandro MD Sep 12, 2018 08:17
[2018-09-12] MEDS: Donepezil 10mg tab ORAL SCH (08:29)
[2018-09-12] MEDS: Aspirin Baby 81mg ORAL SCH (08:29)
[2018-09-12] MEDS: Imdur 30mg tab ORAL SCH (08:30)
[2018-09-12] MEDS: Docusate 100mg cap ORAL SCH ×2 (08:30→12:18)
[2018-09-12] MEDS: Citalopram Hydrobromide 10mg Tab ORAL SCH (08:30)
[2018-09-12] MEDS: Carvedilol 25mg Tab ORAL SCH (08:30)
[2018-09-12] MEDS: Nuedexta Capsule 20/10mg ORAL SCH (08:31)
[2018-09-12] MEDS: Nephrovite tab (Rena-Vite) ORAL SCH (08:31)
[2018-09-12] MEDS: Levodopa/Carbidopa 25/100 tab ORAL SCH ×2 (08:32→12:19)
--- NOTE | 2018-09-12 11:06 | NUR ---
NURSE NOTES: 24 hour creatinine clearance urine collection result came out. Will notify to Dr. Belle as soon as he arrives to the unit. Will inform Dr. Alejandro regarding the case.
--- NOTE | 2018-09-12 11:37 | Nephrology Progress Note ---
Assessment/Plan Problem List: (1) Renal failure (ARF), acute on chronic (2) Prostate hypertrophy (3) Bilateral hydronephrosis (4) Urethral stricture (5) UTI (urinary tract infection) (6) Elevated troponin I level (7) Cardiomyopathy (8) Hypertensive kidney disease Assessment Acute on chronic renal failure Likely Diabetic Nephrosclerosis urinary retention on bladder scan Anemia of CKD Proteinuria / HypoAlbuminemia likely due to DM BPH HTN Parkinsons bilateral hydro elevated troponin Plan check 24 h urine CrCl = 15 Add allopurinol Cr stable CR 3.4 ON ADMISSION- PEAKED TO 4.2 NOW DOWN TO 3.5 HAS IVC FILTER NOW Crcl # 1 was error worsening anemia - bleeding via suprapubic cath Patient need to have an IVC filter to stop further anticoagulation treatment and in my opinion this is an emergency had cysto and supra pubic 09/01 Transfuse as needed recheck labs in am- transfuse as needed gastric support optimize cardiac status DC cogentin due to retention adjust BP meds Po Bicitra Kidney TONY noted bilateral hydro Uro intervention adjust BP meds Anemia potts check Uric Acid Urine studies up dose flomax per orders check dialntin level Left ventricular lazo in the basal regions are contracted normally however the apical segments are akinetic, 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 Mild left ventricular enlargement. Subjective ROS Limited/Unobtainable: No Constitutional: Reports: malaise Objective Objective Last 24 Hour Vital Signs Date Time Temp Pulse Resp B/P (MAP) Pulse Ox O2 Delivery O2 Flow Rate FiO2 09/12/18 09:00 Room Air 09/12/18 08:31 81 118/50 09/12/18 08:30 81 118/50 09/12/18 08:30 118/50 09/12/18 08:00 98.1 81 18 118/50 (72) 97 09/12/18 05:45 137/65 09/12/18 05:44 137/65 09/12/18 04:28 72 09/12/18 04:20 97.7 78 16 137/65 (89) 98 09/12/18 00:00 98.0 77 18 111/60 (77) 97 09/12/18 00:00 69 09/11/18 21:55 153/76 09/11/18 21:55 153/76 09/11/18 21:00 Room Air 09/11/18 21:00 80 153/76 09/11/18 21:00 153/76 (101) 09/11/18 20:00 88 09/11/18 20:00 98.2 88 18 153/89 (110) 96 09/11/18 18:00 81 128/66 09/11/18 16:00 72 09/11/18 16:00 98.7 81 20 128/66 (86) 96 09/11/18 14:00 129/68 09/11/18 13:36 129/68 09/11/18 13:20 129/68 (88) 09/11/18 12:00 63 09/11/18 12:00 98.1 66 20 115/48 (70) 95 Intake and Output 09/11/18 09/12/18 18:59 06:59 Intake Total 120 ml Output Total 600 ml Balance 120 ml -600 ml Intake Oral 120 ml Output Urine Total 600 ml Height (Feet): 5 Height (Inches): 6.00 Weight (Pounds): 172 General Appearance: no apparent distress Neck: limited range of motion Cardiovascular: normal rate Respiratory/Chest: decreased breath sounds Abdomen: distended Genitourinary/Rectal: other - supra pubic Objective no change Sukhdeep Rodriguez MD Sep 12, 2018 11:37
[2018-09-12 12:00] VITALS: BP 131/72
--- NOTE | 2018-09-12 13:13 | NUR ---
DISCHARGE PLAN DISCHARGE ORDER NOTED AND DISCUSSED WITH DR MENEZES WHO STATED PATIENT IS CLEAR FOR DISCHARGE FROM HIS STANDPOINT. PATIENT WILL DISCHARGE TO: [facility] 204-D SKILLED T: [phone] FOR NURSE TO NURSE REPORT [facility] HAS BEEN ARRANGED FOR 1500 BAND TUMBLER TRANSFER FORM COMPLETED
--- NOTE | 2018-09-12 13:29 | NUR ---
NURSE NOTES: Dr. Alejandro would like to continue with discharge order as soon as Dr. Rodriguez clears it. Rachel, watch caser came in saying that Dr. Rodriguez clears the patient. Will work on discharge order. Per Dr. Alejandro, leave suprapubic catheter in place back to [facility].
--- NOTE | 2018-09-12 13:30 | NUR ---
NURSE NOTES: Report given to Mustapha, who is receiving nurse @ [facility]. The patient will go to room 204-D. Informed the course of hospitalization. The patient is resting on the bed without acute distress or shortness of breath. Will continue plan of care until transporter arrives.
[2018-09-12 14:09] VITALS: BP 137/61
[2018-09-12 14:12] VITALS: BP 137/61
--- NOTE | 2018-09-12 14:58 | NUR ---
NURSE NOTES: Report given to Elisa @ [facility] with route #[id number]. Report also given to Mustapha who is a receiving nurse @ [facility]. The patient will be transported back to [facility] room 204D. The patient denies of acute distress or shortness of breath. The patient's vital signs were stable with blood pressure of 126/60 and pulse of 73. MRSA nares swab completed but refused anus swab. The patient refused IV so no IV in place. Tele monitoring box and name band removed. Discharge instruction provided to the patient by signed by the patient. Discharge instruction also given to Mustapha who is a receiving nurse and verbalized understanding. Inventory checked and signed by the patient. Suprapubic [place] [facility] will be in place per Dr. Alejandro's order. [facility] Addendum: 09/12/18 at 1515 by Usman Garrido RN *MRSA anus swab also completed by transporter's help/
--- NOTE | 2018-09-13 03:30 | Progress Note ---
DATE: 09/12/2018 CARDIOLOGY PROGRESS NOTE SUBJECTIVE: The patient's condition remains stable, but he is at high risk for decompensation due to multiple medical problems and tenuous cardiovascular state post myocardial infarction. OBJECTIVE: VITAL SIGNS: Blood pressure 118/50, pulse 81, and respirations 18. LUNGS: Clear. CARDIAC: Regular rhythm and rate. Normal S1, S2. A 1/6 systolic murmur at apex. ABDOMEN: Soft. EXTREMITIES: Trace edema. IMPRESSION: 1. Acute myocardial infarction. 2. Acute on chronic systolic and diastolic congestive heart failure. 3. Acute on chronic renal failure, now compensated. 4. Acute DVT status post IVC filter. 5. Bilateral hydronephrosis. 6. Status post suprapubic catheter. 7. Anemia of chronic kidney disease. PLAN: 1. Medications reviewed. 2. Discharge cardiovascular regimen discussed with primary physician. 3. Outpatient follow up arranged as well. Eric Brown M.D. DR: HILARIO JOB#: [id number] CC:
== END 2018-09-12 15:13 | DRG 673 ==
LOC: EDBD 18:40 → EDBEDREQ 19:06 → EMR 19:30 → 4E 20:05 → EDBEDREQ 20:58 → 2E 08-26 08:56
PROC: 0T9B30Z Drainage of Bladder with Drainage Device, Percutaneous Approach (ICD-10-PCS; principal; 2018-09-01 12:00)
PROC: 0TJB8ZZ Inspection of Bladder, Via Natural or Artificial Opening Endoscopic (ICD-10-PCS; principal; 2018-09-01 12:00)
PROC: 06H03DZ Insertion of Intraluminal Device into Inferior Vena Cava, Percutaneous Approach (ICD-10-PCS; 2018-09-05)
DX: N17.9 Acute kidney failure, unspecified (principal); I50.41 Acute combined systolic (congestive) and diastolic (congestive) heart failure; I21.4 Non-ST elevation (NSTEMI) myocardial infarction; E43 Unspecified severe protein-calorie malnutrition; N39.0 Urinary tract infection, site not specified; I13.0 Hypertensive heart and chronic kidney disease with heart failure and stage 1 through stage 4 chronic kidney disease, or unspecified chronic kidney disease; E87.1 Hypo-osmolality and hyponatremia; I51.81 Takotsubo syndrome; I82.413 Acute embolism and thrombosis of femoral vein, bilateral; E87.2 Acidosis; I95.9 Hypotension, unspecified; R09.02 Hypoxemia; N13.9 Obstructive and reflux uropathy, unspecified; N18.9 Chronic kidney disease, unspecified; E11.22 Type 2 diabetes mellitus with diabetic chronic kidney disease; N40.1 Benign prostatic hyperplasia with lower urinary tract symptoms; R33.8 Other retention of urine; G40.909 Epilepsy, unspecified, not intractable, without status epilepticus; D63.1 Anemia in chronic kidney disease; G20 Parkinson's disease; E88.09 Other disorders of plasma-protein metabolism, not elsewhere classified; R80.9 Proteinuria, unspecified; N31.9 Neuromuscular dysfunction of bladder, unspecified; N13.30 Unspecified hydronephrosis; N35.812 Other bulbous urethral stricture, male; I27.20 Pulmonary hypertension, unspecified; R31.0 Gross hematuria; Z68.27 Body mass index [BMI] 27.0-27.9, adult
CPT/HCPCS: 36415; 71045; 76770; 76937; 80053; 80061; 80185; 81001; 81003; 81050; 82270; 82550; 82553; 82575; 82607; 82728; 82746; 82962; 82977; 83036; 83540; 83550; 83605; 83735; 83880; 83930; 84100; 84156; 84300; 84443; 84484; 84550; 85007; 85025; 85610; 85730; 86140; 86850; 86900; 86901; 86920; 86927; 87040; 87081; 87086; 87181; 93005; 93306; 93970; 94003; 94150; 94640; 94664; 99285; J1815; J2250; J2405; J7620; J8499

== ENCOUNTER 2018-10-05 11:41 | Inpatient (IN) | payer MEDICARE ==
[~2018-10-05] VITALS: Ht 170.2 cm; Wt 64.9 kg
[~2018-10-05 11:41] MED LIST changes: +APRESOLINE50 MG ORAL; +ASPIRIN81 MG ORAL; +CELEXA20 MG ORAL; +COREG25 MG ORAL; +ISOSORBIDE MONO30 M1 ORAL; +NOVOLOG100 UNITS1 SUBQ; +RETACRIT10000 UNIT SUBQ
--- NOTE | 2018-10-05 11:50 | NUR ---
ED Nurse Note: Patient brought in by ambulance [facility] from [facility] due to vomiting/diarrhea x3 since this morning.
[2018-10-05] MEDS ORDERED: Sodium Chloride 1,900 ML IVLG ONE (12:00)
[2018-10-05] MEDS ORDERED: Isovue-300 100ml vial INJ PRN (12:00)
[2018-10-05 12:02] VITALS: BP 147/70
--- NOTE | 2018-10-05 12:43 | Diagnostic Imaging Report ---
Indication: Dyspnea Comparison: 09/08/2018 A single view chest radiograph was obtained. Findings: Cardiomediastinal appearance is within normal limits for age. The lungs are clear. Pulmonary vascularity is appropriate. The diaphragmatic contour is smooth and costophrenic angles are sharp. No pleural effusions are identified. The bones are osteopenic. Impression: No acute findings
[2018-10-05 12:46] LABS: BASOPHILS % (AUTO) 1.6 % (0.0-2.0); EOSINOPHILS % (AUTO) 2.9 % (0.0-3.0); HEMATOCRIT 35.9 % (42.0-52.0); HEMOGLOBIN 10.8 G/DL (14.2-18.0); LYMPHOCYTES % (AUTO) 8.8 % (20.0-45.0); MEAN CORPUSCULAR VOLUME 88 FL (80-99); MONOCYTES % (AUTO) 11.5 % (1.0-10.0); NEUTROPHILS % (AUTO) 75.1 % (45.0-75.0); PLATELET COUNT 464 K/UL (150-450); RED BLOOD COUNT 4.06 M/UL (4.70-6.10); RED CELL DISTRIBUTION WIDTH 16.3 % (11.6-14.8); WHITE BLOOD COUNT 8.3 K/UL (4.8-10.8)
[2018-10-05 12:47] LABS: APPEARANCE,URINE TURBID; BILIRUBIN, URINE NEGATIVE (NEGATIVE); COLOR,URINE PALE YELLOW; GLUCOSE, URINE (UA) NEGATIVE (NEGATIVE); KETONES,URINE NEGATIVE (NEGATIVE); LEUKOCYTE ESTERASE ,URINE 3+ (NEGATIVE); NITRITE,URINE NEGATIVE (NEGATIVE); PH,URINE 5 (4.5-8.0); PROTEIN,URINE 3+ (NEGATIVE); UROBILINOGEN,URINE NORMAL MG/DL (0.0-1.0)
[2018-10-05 13:01] LABS: ANION GAP 16 mmol/L (5-15); BLOOD UREA NITROGEN 78 mg/dL (7-18); CALCIUM 8.1 MG/DL (8.5-10.1); CARBON DIOXIDE 15 MMOL/L (21-32); CHLORIDE 99 MMOL/L (98-107); POTASSIUM 4.9 MMOL/L (3.5-5.1); SODIUM 130 MMOL/L (136-145)
[2018-10-05 13:14] LABS: ALANINE AMINOTRANSFERASE 27 U/L (12-78); ALBUMIN 2.7 G/DL (3.4-5.0); ALBUMIN/GLOBULIN RATIO 0.6 (1.0-2.7); ALKALINE PHOSPHATASE 213 U/L (46-116); ASPARTATE AMINO TRANSFERASE 28 U/L (15-37); BILIRUBIN,TOTAL 0.2 MG/DL (0.2-1.0); CREATINE KINASE 34 U/L (26-308)
--- NOTE | 2018-10-05 13:28 | NUR ---
ED Nurse Note: patient went to CT
--- NOTE | 2018-10-05 13:33 | Emergency Room Report ---
History of Present Illness General Chief Complaint: Nausea, Vomiting, and Diarrhea Source: Patient, Medical Record, EMS Present Illness HPI [facility] facility. He himself has no specific complaints. Apparently, he has had diarrhea for the past few weeks and over the past day he has had several episodes of nausea and vomiting. The patient states he is a little nauseated. He denies chest pain or shortness of breath. He denies abdominal pain. He denies fever or chills. He has no other complaints. Allergies: Coded Allergies: NO KNOWN DRUG ALLERGIES (Unverified Allergy, Unknown, 04/11/14) Patient History Past Medical History: see triage record, old chart reviewed, DM, HTN, [place], CAD, CHF, COPD, seizures, psych hx, renal disease, other - MS,CKD, Parkinson's Social History: Denies: smoking, alcohol use, drug use Reviewed Nursing Documentation: PMH: Agreed; PSxH: Agreed Nursing Documentation-PMH Hx Hypertension: Yes Hx COPD: Yes Hx Diabetes: Yes - DM II Hx Cancer: No Hx Gastrointestinal Problems: No - BPH, Retention of urine, SUPRAPUBIC CATHETER Hx Neurological Problems: Yes - Parkinsons disease, Dementia, parkinson Hx Seizures: Yes Hx Epilepsy: Yes Review of Systems All Other Systems: negative except mentioned in HPI Physical Exam Vital Signs Date Time Temp Pulse Resp B/P (MAP) Pulse Ox O2 Delivery O2 Flow Rate FiO2 10/05/18 11:45 97.9 76 18 133/66 (88) 98 Room Air Sp02 EP Interpretation: reviewed, normal General Appearance: no apparent distress, alert, GCS 15, non-toxic Head: normocephalic, atraumatic Eyes: bilateral eye normal inspection, bilateral eye PERRL ENT: hearing grossly normal, normal pharynx, no angioedema, normal voice Neck: full range of motion, supple/symm/no masses Respiratory: chest non-tender, lungs clear, normal breath sounds, no respiratory distress, no retraction, no accessory muscle use, speaking full sentences Cardiovascular #1: regular rate, rhythm, no edema Gastrointestinal: normal bowel sounds, soft, non-distended, no guarding, no rebound, tenderness - Diffusely TTP Rectal: deferred Musculoskeletal: normal range of motion, non-tender Neurologic: alert, responsive, speech normal, grossly normal Psychiatric: mood/affect normal, no suicidal/homicidal ideation Medical Decision Making Diagnostic Impression: Primary Impression: Renal failure Additional Impressions: Nausea & vomiting Anemia Hyponatremia UTI (urinary tract infection) ER Course This patient presents with vomiting and worsening renal failure. He is also found to have a urinary tract infection. He does have a baseline anemia and is chronically hyponatremic. He was given broad-spectrum antibiotics, IV fluids and admitted for further evaluation and treatment. Laboratory Tests Test 10/05/18 12:15 White Blood Count 8.3 K/UL (4.8-10.8) Red Blood Count 4.06 M/UL (4.70-6.10) L Hemoglobin 10.8 G/DL (14.2-18.0) L Hematocrit 35.9 % (42.0-52.0) L Mean Corpuscular Volume 88 FL (80-99) Mean Corpuscular Hemoglobin 26.7 PG (27.0-31.0) L Mean Corpuscular Hemoglobin Concent 30.2 G/DL (32.0-36.0) L Red Cell Distribution Width 16.3 % (11.6-14.8) H Platelet Count 464 K/UL (150-450) H Mean Platelet Volume 4.8 FL (6.5-10.1) L Neutrophils (%) (Auto) 75.1 % (45.0-75.0) H Lymphocytes (%) (Auto) 8.8 % (20.0-45.0) L Monocytes (%) (Auto) 11.5 % (1.0-10.0) H Eosinophils (%) (Auto) 2.9 % (0.0-3.0) Basophils (%) (Auto) 1.6 % (0.0-2.0) Urine Color Pale yellow Urine Appearance Turbid Urine pH 5 (4.5-8.0) Urine Specific [place] 1.020 (1.005-1.035) Urine Protein 3+ (NEGATIVE) H Urine Glucose (UA) Negative (NEGATIVE) Urine Ketones Negative (NEGATIVE) Urine Blood 2+ (NEGATIVE) H Urine Nitrite Negative (NEGATIVE) Urine Bilirubin Negative (NEGATIVE) Urine Urobilinogen Normal MG/DL (0.0-1.0) Urine Leukocyte Esterase 3+ (NEGATIVE) H Urine RBC 5-10 /HPF (0 - 0) H Urine WBC Tntc /HPF (0 - 0) H Urine Squamous Epithelial Cells None /LPF (NONE/OCC) Urine Bacteria Many /HPF (NONE) H Sodium Level 130 MMOL/L (136-145) L Potassium Level 4.9 MMOL/L (3.5-5.1) Chloride Level 99 MMOL/L (98-107) Carbon Dioxide Level 15 MMOL/L (21-32) L Anion Gap 16 mmol/L (5-15) H Blood Urea Nitrogen 78 mg/dL (7-18) H Creatinine 4.0 MG/DL (0.55-1.30) H Estimate Glomerular Filtration Rate mL/min (>60) Glucose Level 210 MG/DL (74-106) H Lactic Acid Level 0.60 mmol/L (0.4-2.0) Calcium Level 8.1 MG/DL (8.5-10.1) L Total Bilirubin 0.2 MG/DL (0.2-1.0) Aspartate Amino Transferase (AST) 28 U/L (15-37) Alanine Aminotransferase (ALT) 27 U/L (12-78) Alkaline Phosphatase 213 U/L (46-116) H Total Creatine Kinase 34 U/L (26-308) Creatine Kinase MB 1.0 NG/ML (0.0-3.6) Creatine Kinase MB Relative Index 2.9 Troponin I 0.008 ng/mL (0.000-0.056) Total Protein 7.4 G/DL (6.4-8.2) Albumin 2.7 G/DL (3.4-5.0) L Globulin 4.7 g/dL Albumin/Globulin Ratio 0.6 (1.0-2.7) L EKG Diagnostic Results Rate: normal Rhythm: NSR ST Segments: no acute changes Rhythm Strip Diag. Results EP Interpretation: yes Rate: 70's Rhythm: NSR, other - PVC's Chest X-Ray Diagnostic Results Chest X-Ray Diagnostic Results : Chest X-Ray Ordered: Yes # of Views/Limited/Complete: 1 View Indication: Other EP Interpretation: Yes Interpretation: no consolidation, no effusion, no pneumothorax, no acute cardiopulmonary disease Impression: No acute disease Electronically Signed by: Lamar Sharp DO CT/MRI/US Diagnostic Results CT/MRI/US Diagnostic Results : Imaging Test Ordered: CT abd/pelvis Impression Chronic cystitis/ureteritis signs of chronic inflammation/infection. Mild hydronephrosis. Correlate for concurrent or active UTI. Suprapubic catheter in good position. Chronic calcific pancreatitis IVC filter Reticular densities at the right lung base nonspecific, acuity indeterminant. Atherosclerotic disease L5 spondylolysis. L5 on S1 spondylolisthesis. Normal appendix Mild diverticulosis of the colon. No definite diverticulitis. Small bilateral inguinal hernias containing fat. Last Vital Signs Date Time Temp Pulse Resp B/P (MAP) Pulse Ox O2 Delivery O2 Flow Rate FiO2 10/05/18 12:02 97.9 86 17 147/70 100 Room Air Disposition: ADMITTED INPATIENT Condition: Serious Referrals: NON PHYSICIAN (PCP) Lamar Sharp DO Oct 05, 2018 13:33
--- NOTE | 2018-10-05 13:38 | NUR ---
ED Nurse Note: patient came back from CT
--- NOTE | 2018-10-05 14:11 | Diagnostic Imaging Report ---
Indication: Abdominal pain Technique: Continuous helical transaxial imaging of the abdomen and pelvis was obtained from the lung bases to the pubic symphysis. No intravenous contrast was administered. Coronal 2-D reformats were also obtained. Automatic Exposure Control was utilized. Total Dose length Product (DLP): 791.[address] Dose Index Volume (CTDIvol): 14.56 mGy Comparison: none Findings: Mild curvilinear reticular densities demonstrated at the right lung base nonspecific. The heart is prominent size. Gallbladder is unremarkable. There are parenchymal calcifications in the pancreas consistent with the chronic pancreatitis. IVC filter is present. There is a moderate to severe thickening of the wall the urinary bladder. This is consistent with chronic cystitis. A suprapubic catheter is present which appears to be in good position. Associated with this there is thickening of the wall of the ureter bilaterally with mild hydroureteronephrosis present. This is also a sign of chronic inflammation in this associated with the cystitis. Correlate for current UTI. Mild distended fluid-filled loops of small bowel noted diffusely. Consider enteritis/ileus. The appendix is normal. There is no abscess or free fluid. Few diverticula are noted within the colon. Small bilateral inguinal hernias containing fat noted. L5 on S1 spondylolisthesis noted with a large pars interarticularis defects bilaterally at L5. Bones are osteopenic. IMPRESSION: Chronic cystitis/ureteritis signs of chronic inflammation/infection. Mild hydronephrosis. Correlate for concurrent or active UTI. Suprapubic catheter in good position. Chronic calcific pancreatitis IVC filter Reticular densities at the right lung base nonspecific, acuity indeterminant. Atherosclerotic disease L5 spondylolysis. L5 on S1 spondylolisthesis. Normal appendix Mild diverticulosis of the colon. No definite diverticulitis. Small bilateral inguinal hernias containing fat. The CT scanner at [facility] is accredited by the [employer] and the scans are performed using dose optimization techniques as appropriate to a performed exam including Automatic Exposure control.
--- NOTE | 2018-10-05 15:13 | NUR ---
ED Nurse Note: Unable to upload a photo of patient's sacral redness due to camera issue. notified CN.
--- NOTE | 2018-10-05 15:38 | NUR ---
ED Nurse Note: report given to Nava VIRGEN. endorsed all plan of care to Nava VIRGEN, let her know that our camera failed to upload a picture for sacral redness/scrotal erosion
[2018-10-05] MEDS ORDERED: cefTRIAXone 1 GM in NS 55 ML IVPB ONE (15:45)
--- NOTE | 2018-10-05 15:50 | NUR ---
ED Nurse Note: Patient being transferred to 2E in stable condition, patient had no belongings.
--- NOTE | 2018-10-05 17:14 | History and Physical ---
History of Present Illness General Date patient seen: Oct 05, 2018 Reason for Hospitalization: Nausea, Vomiting, and Diarrhea Present Illness HPI 73 year old male with PMH of seizure d/o, urethral stricture s/p suprapubic catheter, CKD was transferred from SNF for diarrhea and vomiting for past few days. Pt states diarrhea and vomiting has resolved, however still feels a bit nauseous, otherwise no other complaints. Pt denies fevers, chills, superpubic pain, abdominal pain, weakness, chest pain or SOB. Allergies: Coded Allergies: NO KNOWN DRUG ALLERGIES (Unverified Allergy, Unknown, 04/11/14) Medication History Scheduled Amino Acids/Protein Hydrolys (Pro-Stat Liquid), 45 ML ORAL TID, (Reported) Amlodipine Besylate* (Amlodipine Besylate*), 10 MG ORAL DAILY, (Reported) Aspirin* (Aspirin*), 81 MG ORAL DAILY Benztropine Mesylate* (Benztropine Mesylate*), 1 MG PO BID, (Reported) Carbidopa/Levodopa 25-100 Mg* (Sinemet 25-100 Mg Tablet*), 1 TAB ORAL THREE TIMES A DAY, (Reported) Carvedilol (Coreg), 25 MG ORAL EVERY 12 HOURS Citalopram Hydrobromide* (Celexa*), 20 MG ORAL DAILY, (Reported) Clonidine Hcl* (Catapres*), 0.1 MG ORAL EVERY 6 HOURS, (Reported) Dextromethorphan Hbr/Quinidine (Nuedexta 20-10 Mg Capsule), 1 EACH PO Q12HR, ( Reported) Docusate Sodium* (Colace*), 100 MG ORAL DAILY, (Reported) Docusate Sodium* (Colace*), 100 MG ORAL DAILY, (Reported) Donepezil Hcl* (Aricept*), 10 MG ORAL DAILY, (Reported) Epoetin Zaid-Epbx (Retacrit), 10,000 UNIT SUBQ WED-WED-WED Finasteride* (Proscar*), 5 MG ORAL DAILY, (Reported) Hydralazine HCl (Hydralazine HCl), 100 MG ORAL Q8HR Insulin Aspart (Novolog Flexpen), 0 UNITS SUBQ BEFORE MEALS AND HS Insulin Glargine (Lantus), 0 SUBQ BEDTIME, (Reported) Insulin Glargine (Lantus), 24 SUBQ BEDTIME, (Reported) Isosorbide Mononitrate (Isosorbide Mononitrate Er), 60 MG ORAL DAILY Levofloxacin (Levofloxacin*), 250 MG ORAL DAILY Metoprolol Tartrate* (Metoprolol Tartrate*), 75 MG ORAL EVERY 12 HOURS, ( Reported) Metoprolol/Hydrochlorothiazide (Metoprolol-Hctz 50-25 Mg Tab), 1 TAB ORAL DAILY, (Reported) Phenytoin Sodium Extended* (Dilantin*), 100 MG ORAL THREE TIMES A DAY, (Reported ) Phenytoin Sodium Extended* (Dilantin*), 100 MG ORAL THREE TIMES A DAY, (Reported ) Pravastatin Sodium (Pravachol), 80 MG ORAL BEDTIME, (Reported) Tamsulosin Hcl (Tamsulosin Hcl*), 0.4 MG ORAL BEDTIME, (Reported) Tamsulosin Hcl (Tamsulosin Hcl*), 0.4 MG ORAL BEDTIME, (Reported) Vit B Cmplx 3/Fa/Vit C/Biotin (Nephro-Nemo Rx Tablet), 1 EACH PO DAILY, ( Reported) Whey Protein Isolate (Beneprotein), 2 EACH PO BID, (Reported) Scheduled PRN Acetaminophen* (Acetaminophen 325MG Tablet*), 650 MG ORAL Q6H PRN for For Pain, (Reported) Miscellaneous Medications Divalproex Sodium (Depakote), 250 MG PO, (Reported) Folic Acid/Vitamin B Comp W-C (Kiarra-Nemo Tablet), 0.8 MG PO, (Reported) Hum Insulin Nph/Reg Insulin Hm (Novolin 70-30 100 Unit/Ml Vial), 0 SUBQ, ( Reported) Insulin Lispro (Humalog), 0 SUBQ, (Reported) Nutritional Supplement (Resource 2.0), 120 ML PO, (Reported) Patient History Limited by: medical condition History Provided By: Patient, Medical Record, PMD Healthcare decision maker Resuscitation status Advanced Directive on File Review of Systems Constitutional: Reports: no symptoms Eye: Reports: no symptoms ENT: Reports: no symptoms Respiratory: Reports: no symptoms Cardiovascular: Reports: no symptoms Gastrointestinal: Reports: no symptoms, diarrhea, nausea, vomiting Genitourinary: Reports: no symptoms Musculoskeletal: Reports: no symptoms Skin: Reports: no symptoms Psychiatric: Reports: no symptoms Neurological: Reports: no symptoms Endocrine: Reports: no symptoms Hematologic/Lymphatic: Reports: no symptoms Physical Exam General Appearance: WD/WN, no apparent distress Lines, tubes and drains: peripheral HEENT: normocephalic, atraumatic Neck: non-tender, normal alignment Respiratory/Chest: chest wall non-tender, lungs clear, normal breath sounds, no respiratory distress Cardiovascular/Chest: normal peripheral pulses, normal rate, regular rhythm Abdomen: normal bowel sounds, non tender Extremities: normal range of motion Skin Exam: normal pigmentation 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 Last 24 Hour Vital Signs Date Time Temp Pulse Resp B/P (MAP) Pulse Ox O2 Delivery O2 Flow Rate FiO2 10/05/18 15:50 97.9 86 17 147/70 100 Room Air 10/05/18 12:02 97.9 86 17 147/70 100 Room Air 10/05/18 11:45 97.9 76 18 133/66 (88) 98 Room Air Laboratory Tests Test 10/05/18 12:15 White Blood Count 8.3 K/UL (4.8-10.8) Red Blood Count 4.06 M/UL (4.70-6.10) L Hemoglobin 10.8 G/DL (14.2-18.0) L Hematocrit 35.9 % (42.0-52.0) L Mean Corpuscular Volume 88 FL (80-99) Mean Corpuscular Hemoglobin 26.7 PG (27.0-31.0) L Mean Corpuscular Hemoglobin Concent 30.2 G/DL (32.0-36.0) L Red Cell Distribution Width 16.3 % (11.6-14.8) H Platelet Count 464 K/UL (150-450) H Mean Platelet Volume 4.8 FL (6.5-10.1) L Neutrophils (%) (Auto) 75.1 % (45.0-75.0) H Lymphocytes (%) (Auto) 8.8 % (20.0-45.0) L Monocytes (%) (Auto) 11.5 % (1.0-10.0) H Eosinophils (%) (Auto) 2.9 % (0.0-3.0) Basophils (%) (Auto) 1.6 % (0.0-2.0) Urine Color Pale yellow Urine Appearance Turbid Urine pH 5 (4.5-8.0) Urine Specific [place] 1.020 (1.005-1.035) Urine Protein 3+ (NEGATIVE) H Urine Glucose (UA) Negative (NEGATIVE) Urine Ketones Negative (NEGATIVE) Urine Blood 2+ (NEGATIVE) H Urine Nitrite Negative (NEGATIVE) Urine Bilirubin Negative (NEGATIVE) Urine Urobilinogen Normal MG/DL (0.0-1.0) Urine Leukocyte Esterase 3+ (NEGATIVE) H Urine RBC 5-10 /HPF (0 - 0) H Urine WBC Tntc /HPF (0 - 0) H Urine Squamous Epithelial Cells None /LPF (NONE/OCC) Urine Bacteria Many /HPF (NONE) H Sodium Level 130 MMOL/L (136-145) L Potassium Level 4.9 MMOL/L (3.5-5.1) Chloride Level 99 MMOL/L (98-107) Carbon Dioxide Level 15 MMOL/L (21-32) L Anion Gap 16 mmol/L (5-15) H Blood Urea Nitrogen 78 mg/dL (7-18) H Creatinine 4.0 MG/DL (0.55-1.30) H Estimat Glomerular Filtration Rate mL/min (>60) Glucose Level 210 MG/DL (74-106) H Lactic Acid Level 0.60 mmol/L (0.4-2.0) Calcium Level 8.1 MG/DL (8.5-10.1) L Total Bilirubin 0.2 MG/DL (0.2-1.0) Aspartate Amino Transf (AST/SGOT) 28 U/L (15-37) Alanine Aminotransferase (ALT/SGPT) 27 U/L (12-78) Alkaline Phosphatase 213 U/L (46-116) H Total Creatine Kinase 34 U/L (26-308) Creatine Kinase MB 1.0 NG/ML (0.0-3.6) Creatine Kinase MB Relative Index 2.9 Troponin I 0.008 ng/mL (0.000-0.056) Total Protein 7.4 G/DL (6.4-8.2) Albumin 2.7 G/DL (3.4-5.0) L Globulin 4.7 g/dL Albumin/Globulin Ratio 0.6 (1.0-2.7) L Height (Feet): 5 Height (Inches): 7.00 Weight (Pounds): 143 Medications Current Medications Medications (Trade) Dose Ordered Sig/Thu Route PRN Reason Start Time Stop Time Status Last Admin Dose Admin Iopamidol (Isovue-300 100ml) 100 ml NOW PRN INJ Radiology Procedure 10/05/18 12:00 Assessment/Plan Assessment/Plan: 73 year old male with PMH of seizure d/o, urethral stricture s/p suprapubic catheter, CKD was transferred from SNF for diarrhea and vomiting for past few days admitted for UTI #UTI in pt with suprabupic catheter #Urethral strictures s/p suprapubic catheter -abx changed to Cefepime (SNF resident) -monitor urinary output -f/u cultures -ID consulted #SEVEN on CKD -likely prerenal 2/2 dehydration 2/2 diarrhea and vomiting -CTM -avoid nephrotoxic medications -gentle hydration -nephrology consulted - Dr. Sanchez (also PCP) #Hx of cardiomyopathy -cardiology consulted #DM -ISS -DM diet -FSG QAC and HS #Seizures -cont home meds -seizure precautions #Dementia -delirium precautions -Neuro consulted Full code DVT: HSq Giselle Whitlock MD Oct 05, 2018 17:14
[2018-10-05] MEDS ORDERED: oxyCODONE HCL/Acetaminophen 5/325mg ORAL PRN (17:45)
[2018-10-05] MEDS: Phenytoin 100mg cap ORAL SCH (18:12)
[2018-10-05] MEDS: Benztropine 1mg tab ORAL SCH (18:12)
[2018-10-05] MEDS: Levodopa/Carbidopa 25/100 tab ORAL SCH (18:12)
--- NOTE | 2018-10-05 19:43 | NUR ---
NURSE NOTES: Report given to Sabino Kang. Plan of care endorsed
--- NOTE | 2018-10-05 19:44 | NUR ---
NURSE NOTES: Received patient report from Nava VIRGEN. Patient is resting in bed appearing to be in no distress at this time. Vital signs are stable. Patient has a suprapubic catheter that was placed prior to admission. Bed is in lowest position with call light within reach. Will continue to monitor and follow plan of care.
[2018-10-05 20:00] VITALS: BP 147/83
[2018-10-05] MEDS ORDERED: Cefepime HCl 0.5 GM in D5W 55 ML IVPB SCH (20:00)
--- NOTE | 2018-10-05 20:33 | Consultation ---
History of Present Illness General Date patient seen: Oct 05, 2018 Chief Complaint: Nausea, Vomiting, and Diarrhea Present Illness HPI Pt with dementia and seizures presents with worsening confusion, nausea, vomiting for last 2 days. No seizure reported Allergies: Coded Allergies: NO KNOWN DRUG ALLERGIES (Unverified Allergy, Unknown, 04/11/14) Medication History Scheduled Amino Acids/Protein Hydrolys (Pro-Stat Liquid), 45 ML ORAL TID, (Reported) Amlodipine Besylate* (Amlodipine Besylate*), 10 MG ORAL DAILY, (Reported) Aspirin* (Aspirin*), 81 MG ORAL DAILY Benztropine Mesylate* (Benztropine Mesylate*), 1 MG PO BID, (Reported) Carbidopa/Levodopa 25-100 Mg* (Sinemet 25-100 Mg Tablet*), 1 TAB ORAL THREE TIMES A DAY, (Reported) Carvedilol (Coreg), 25 MG ORAL EVERY 12 HOURS Citalopram Hydrobromide* (Celexa*), 20 MG ORAL DAILY, (Reported) Clonidine Hcl* (Catapres*), 0.1 MG ORAL EVERY 6 HOURS, (Reported) Dextromethorphan Hbr/Quinidine (Nuedexta 20-10 Mg Capsule), 1 EACH PO Q12HR, ( Reported) Docusate Sodium* (Colace*), 100 MG ORAL DAILY, (Reported) Docusate Sodium* (Colace*), 100 MG ORAL DAILY, (Reported) Donepezil Hcl* (Aricept*), 10 MG ORAL DAILY, (Reported) Epoetin Zaid-Epbx (Retacrit), 10,000 UNIT SUBQ WED- Finasteride* (Proscar*), 5 MG ORAL DAILY, (Reported) Hydralazine HCl (Hydralazine HCl), 100 MG ORAL Q8HR Insulin Aspart (Novolog Flexpen), 0 UNITS SUBQ BEFORE MEALS AND HS Insulin Glargine (Lantus), 0 SUBQ BEDTIME, (Reported) Insulin Glargine (Lantus), 24 SUBQ BEDTIME, (Reported) Isosorbide Mononitrate (Isosorbide Mononitrate Er), 60 MG ORAL DAILY Levofloxacin (Levofloxacin*), 250 MG ORAL DAILY Metoprolol Tartrate* (Metoprolol Tartrate*), 75 MG ORAL EVERY 12 HOURS, ( Reported) Metoprolol/Hydrochlorothiazide (Metoprolol-Hctz 50-25 Mg Tab), 1 TAB ORAL DAILY, (Reported) Phenytoin Sodium Extended* (Dilantin*), 100 MG ORAL THREE TIMES A DAY, (Reported ) Phenytoin Sodium Extended* (Dilantin*), 100 MG ORAL THREE TIMES A DAY, (Reported ) Pravastatin Sodium (Pravachol), 80 MG ORAL BEDTIME, (Reported) Tamsulosin Hcl (Tamsulosin Hcl*), 0.4 MG ORAL BEDTIME, (Reported) Tamsulosin Hcl (Tamsulosin Hcl*), 0.4 MG ORAL BEDTIME, (Reported) Vit B Cmplx 3/Fa/Vit C/Biotin (Nephro-Nemo Rx Tablet), 1 EACH PO DAILY, ( Reported) Whey Protein Isolate (Beneprotein), 2 EACH PO BID, (Reported) Scheduled PRN Acetaminophen* (Acetaminophen 325MG Tablet*), 650 MG ORAL Q6H PRN for For Pain, (Reported) Miscellaneous Medications Divalproex Sodium (Depakote), 250 MG PO, (Reported) Folic Acid/Vitamin B Comp W-C (Kiarra-Nemo Tablet), 0.8 MG PO, (Reported) Hum Insulin Nph/Reg Insulin Hm (Novolin 70-30 100 Unit/Ml Vial), 0 SUBQ, ( Reported) Insulin Lispro (Humalog), 0 SUBQ, (Reported) Nutritional Supplement (Resource 2.0), 120 ML PO, (Reported) Patient History Healthcare decision maker Resuscitation status Full Code Advanced Directive on File No Physical Exam Last 24 Hour Vital Signs Date Time Temp Pulse Resp B/P (MAP) Pulse Ox O2 Delivery O2 Flow Rate FiO2 10/05/18 17:32 Room Air 10/05/18 15:50 97.9 86 17 147/70 100 Room Air 10/05/18 12:02 97.9 86 17 147/70 100 Room Air 10/05/18 11:45 97.9 76 18 133/66 (88) 98 Room Air Laboratory Tests Test 10/05/18 12:15 White Blood Count 8.3 K/UL (4.8-10.8) Red Blood Count 4.06 M/UL (4.70-6.10) L Hemoglobin 10.8 G/DL (14.2-18.0) L Hematocrit 35.9 % (42.0-52.0) L Mean Corpuscular Volume 88 FL (80-99) Mean Corpuscular Hemoglobin 26.7 PG (27.0-31.0) L Mean Corpuscular Hemoglobin Concent 30.2 G/DL (32.0-36.0) L Red Cell Distribution Width 16.3 % (11.6-14.8) H Platelet Count 464 K/UL (150-450) H Mean Platelet Volume 4.8 FL (6.5-10.1) L Neutrophils (%) (Auto) 75.1 % (45.0-75.0) H Lymphocytes (%) (Auto) 8.8 % (20.0-45.0) L Monocytes (%) (Auto) 11.5 % (1.0-10.0) H Eosinophils (%) (Auto) 2.9 % (0.0-3.0) Basophils (%) (Auto) 1.6 % (0.0-2.0) Urine Color Pale yellow Urine Appearance Turbid Urine pH 5 (4.5-8.0) Urine Specific Bigelow 1.020 (1.005-1.035) Urine Protein 3+ (NEGATIVE) H Urine Glucose (UA) Negative (NEGATIVE) Urine Ketones Negative (NEGATIVE) Urine Blood 2+ (NEGATIVE) H Urine Nitrite Negative (NEGATIVE) Urine Bilirubin Negative (NEGATIVE) Urine Urobilinogen Normal MG/DL (0.0-1.0) Urine Leukocyte Esterase 3+ (NEGATIVE) H Urine RBC 5-10 /HPF (0 - 0) H Urine WBC Tntc /HPF (0 - 0) H Urine Squamous Epithelial Cells None /LPF (NONE/OCC) Urine Bacteria Many /HPF (NONE) H Sodium Level 130 MMOL/L (136-145) L Potassium Level 4.9 MMOL/L (3.5-5.1) Chloride Level 99 MMOL/L (98-107) Carbon Dioxide Level 15 MMOL/L (21-32) L Anion Gap 16 mmol/L (5-15) H Blood Urea Nitrogen 78 mg/dL (7-18) H Creatinine 4.0 MG/DL (0.55-1.30) H Estimat Glomerular Filtration Rate mL/min (>60) Glucose Level 210 MG/DL (74-106) H Lactic Acid Level 0.60 mmol/L (0.4-2.0) Calcium Level 8.1 MG/DL (8.5-10.1) L Total Bilirubin 0.2 MG/DL (0.2-1.0) Aspartate Amino Transf (AST/SGOT) 28 U/L (15-37) Alanine Aminotransferase (ALT/SGPT) 27 U/L (12-78) Alkaline Phosphatase 213 U/L (46-116) H Total Creatine Kinase 34 U/L (26-308) Creatine Kinase MB 1.0 NG/ML (0.0-3.6) Creatine Kinase MB Relative Index 2.9 Troponin I 0.008 ng/mL (0.000-0.056) Total Protein 7.4 G/DL (6.4-8.2) Albumin 2.7 G/DL (3.4-5.0) L Globulin 4.7 g/dL Albumin/Globulin Ratio 0.6 (1.0-2.7) L Height (Feet): 5 Height (Inches): 7.00 Weight (Pounds): 143 Medications Current Medications Medications (Trade) Dose Ordered Sig/Thu Route PRN Reason Start Time Stop Time Status Last Admin Dose Admin Acetaminophen (Tylenol) 650 mg Q6H PRN ORAL Mild Pain/Temp > 100.5 10/05/18 17:45 11/04/18 17:44 Amlodipine Besylate (Norvasc) 10 mg DAILY ORAL 10/06/18 09:00 11/05/18 08:59 Aspirin (ASA) 81 mg DAILY ORAL 10/06/18 09:00 11/05/18 08:59 Benztropine Mesylate (Cogentin) 1 mg BID ORAL 10/05/18 18:00 11/04/18 17:59 10/05/18 18:12 Carbidopa/Levodopa (Sinemet 25/100) 1 tab THREE TIMES A DAY ORAL 10/05/18 18:00 11/04/18 17:59 10/05/18 18:12 Cefepime HCl 0.5 gm/Dextrose 55 ml @ 110 mls/hr Q24H IVPB 10/05/18 20:00 10/12/18 19:59 Citalopram Hydrobromide (celeXA) 20 mg DAILY ORAL 10/06/18 09:00 11/05/18 08:59 Docusate Sodium (Colace) 100 mg DAILY ORAL 10/06/18 09:00 11/05/18 08:59 Donepezil HCl (Aricept) 10 mg DAILY ORAL 10/06/18 09:00 11/05/18 08:59 Epoetin Zaid (Epoetin Zaid-EPBX(NON ESRD)) 10,000 unit WED-WED-WED SUBQ 10/05/18 21:00 11/04/18 20:59 Heparin Sodium (Porcine) (Heparin 5000 units/ml) 5,000 units EVERY 12 HOURS SUBQ 10/05/18 21:00 11/04/18 20:59 Hydralazine HCl (Apresoline) 100 mg Q8HR ORAL 10/05/18 22:00 11/04/18 21:59 Iopamidol (Isovue-300 100ml) 100 ml NOW PRN INJ Radiology Procedure 10/05/18 12:00 10/07/18 11:59 Isosorbide Mononitrate (Imdur) 60 mg DAILY ORAL 10/06/18 09:00 11/05/18 08:59 Metoprolol Tartrate (Lopressor) 75 mg EVERY 12 HOURS ORAL 10/05/18 21:00 11/04/18 20:59 Oxycodone/ Acetaminophen (Percocet 5-325) 1 tab Q6H PRN ORAL Severe Pain (Pain Scale 7-10) 10/05/18 17:45 10/12/18 17:44 Phenytoin (Dilantin) 100 mg THREE TIMES A DAY ORAL 10/05/18 18:00 11/04/18 17:59 10/05/18 18:12 Pravastatin Sodium (Pravachol) 80 mg BEDTIME ORAL 10/05/18 21:00 11/04/18 20:59 Vitamin B Complex/ Vit C/Folic Acid (Nephrovite) 1 tab DAILY ORAL 10/06/18 09:00 11/05/18 08:59 Assessment/Plan Problem List: (1) Hyperkalemia ICD Codes: E87.5 - Hyperkalemia SNOMED: 99704526 (2) Acute hyponatremia ICD Codes: E87.1 - Hypo-osmolality and hyponatremia SNOMED: 9487442 (3) Abnormal laboratory test result ICD Codes: R89.9 - Unspecified abnormal finding in specimens from other organs , systems and tissues SNOMED: 068868023 (4) Leukocytosis ICD Codes: D72.829 - Elevated white blood cell count, unspecified SNOMED: 265549002 (5) Hematuria, gross ICD Codes: R31.0 - Gross hematuria SNOMED: 198343234 (6) Acute renal insufficiency ICD Codes: N28.9 - Disorder of kidney and ureter, unspecified SNOMED: 91809775 (7) Renal failure (ARF), acute on chronic ICD Codes: N17.9 - Acute kidney failure, unspecified; N18.9 - Chronic kidney disease, unspecified SNOMED: 381914357 (8) Bilateral hydronephrosis ICD Codes: N13.30 - Unspecified hydronephrosis SNOMED: 88238002 (9) Elevated troponin I level ICD Codes: R74.8 - Abnormal levels of other serum enzymes SNOMED: 392196421 (10) Hypertensive kidney disease ICD Codes: I12.9 - Hypertensive chronic kidney disease with stage 1 through stage 4 chronic kidney disease, or unspecified chronic kidney disease SNOMED: 87785799 (11) AMI (acute myocardial infarction) ICD Codes: I21.9 - Acute myocardial infarction, unspecified SNOMED: 48680633 (12) Cardiomyopathy ICD Codes: I42.9 - Cardiomyopathy, unspecified SNOMED: 04306793 (13) Anemia ICD Codes: D64.9 - Anemia, unspecified SNOMED: 979640352 (14) Pyelonephritis ICD Codes: N12 - Tubulo-interstitial nephritis, not specified as acute or chronic SNOMED: 30761013 (15) Nausea & vomiting ICD Codes: R11.2 - Nausea with vomiting, unspecified SNOMED: 34665260 (16) Hyponatremia ICD Codes: E87.1 - Hypo-osmolality and hyponatremia SNOMED: 07116752 (17) Renal failure ICD Codes: N19 - Unspecified kidney failure SNOMED: 37871523 (18) UTI (urinary tract infection) ICD Codes: N39.0 - Urinary tract infection, site not specified SNOMED: 57400082 Assessment/Plan: No seizures noted cont depakote and dilantin dose sinemet trial Jeremiah Sandoval MD Oct 05, 2018 20:33
[2018-10-05] MEDS ORDERED: Epoetin Alfa-EPBX (NON ESRD)10,000 unit/ml vial SUBQ SCH (21:00)
[2018-10-05] MEDS: Metoprolol Tartrate 50mg tab ORAL SCH (21:04)
[2018-10-05] MEDS: Heparin 5000 units/ml inj SUBQ SCH (21:05)
[2018-10-05] MEDS: HydrALAZINE 50mg tab ORAL SCH (21:06)
[2018-10-06] VITALS: BP 144/78
[2018-10-06 04:00] VITALS: BP 153/73
[2018-10-06] MEDS: HydrALAZINE 50mg tab ORAL SCH ×3 (06:00→21:06)
[2018-10-06 06:37] LABS: BASOPHILS % (AUTO) 2.4 % (0.0-2.0); EOSINOPHILS % (AUTO) 4.4 % (0.0-3.0); HEMATOCRIT 39.3 % (42.0-52.0); LYMPHOCYTES % (AUTO) 14.5 % (20.0-45.0); MEAN CORPUSCULAR VOLUME 89 FL (80-99); MONOCYTES % (AUTO) 12.5 % (1.0-10.0); NEUTROPHILS % (AUTO) 66.3 % (45.0-75.0); PLATELET COUNT 429 K/UL (150-450); RED BLOOD COUNT 4.44 M/UL (4.70-6.10); RED CELL DISTRIBUTION WIDTH 16.1 % (11.6-14.8); WHITE BLOOD COUNT 6.8 K/UL (4.8-10.8)
[2018-10-06 06:55] LABS: ANION GAP 17 mmol/L (5-15); BLOOD UREA NITROGEN 74 mg/dL (7-18); CALCIUM 8.4 MG/DL (8.5-10.1); CARBON DIOXIDE 12 MMOL/L (21-32); CHLORIDE 104 MMOL/L (98-107); CREATININE 3.6 MG/DL (0.55-1.30); PHOSPHORUS 6.6 MG/DL (2.5-4.9); POTASSIUM 4.5 MMOL/L (3.5-5.1); SODIUM 133 MMOL/L (136-145)
--- NOTE | 2018-10-06 07:15 | NUR ---
NURSE NOTES: I received the patient awake and resting in bed. Patient alert and oriented x2. Bed in the lowest position and call light within reach. Patient does not display any signs of distress or SOB. I will continue to monitor the patient and implement care.
[2018-10-06 08:00] VITALS: BP 145/67
[2018-10-06] MEDS: Levodopa/Carbidopa 25/100 tab ORAL SCH ×3 (08:34→17:12)
[2018-10-06] MEDS: Donepezil 10mg tab ORAL SCH (08:34)
[2018-10-06] MEDS: Nephrovite tab (Rena-Vite) ORAL SCH (08:34)
[2018-10-06] MEDS: Benztropine 1mg tab ORAL SCH ×2 (08:34→17:13)
[2018-10-06] MEDS: Phenytoin 100mg cap ORAL SCH ×3 (08:34→17:13)
[2018-10-06] MEDS: Imdur 30mg tab ORAL SCH (08:34)
[2018-10-06] MEDS: Aspirin Baby 81mg ORAL SCH (08:34)
[2018-10-06] MEDS: Docusate 100mg cap ORAL SCH (08:34)
[2018-10-06] MEDS: Citalopram Hydrobromide 10mg Tab ORAL SCH (08:35)
[2018-10-06] MEDS: Metoprolol Tartrate 50mg tab ORAL SCH ×2 (08:35→20:59)
[2018-10-06] MEDS: Heparin 5000 units/ml inj SUBQ SCH ×2 (08:36→21:11)
--- NOTE | 2018-10-06 10:03 | NUR ---
CASE MANAGEMENT: INITIAL REVIEW 73 YO M YIMI FROM [facility] CC: N/V/D PMHx: DM. HTN. MD. CAD. CHF. COPD. SZ. RENAL DX. MS. CKD. SI: UTI. RENAL FAILURE. HYPONATREMIA. T 97.9 HR 76 RR 18 B/P 133/66 SATS 98% ON RA NA 130 CO2 15 BUN 78 CR 4 GLU 210 CA 8.1 ALP 213 IS: NS BOLUS X1 PATIENT ADMITTED TO [facility] 10/05/2018 @ 6982 DCP: PATIENT TO BE DISCHARGED TO HOME ONCE MEDICALLY CLEARED. PLAN OF CARE PER MD: -abx changed to Cefepime ([facility] resident) -monitor urinary output -f/u cultures -ID consulted Addendum: 10/06/18 at 1011 by Niurka Hahn CM interqual
[2018-10-06 12:00] VITALS: BP 145/67
--- NOTE | 2018-10-06 12:36 | General Progress Note ---
Assessment/Plan Assessment/Plan: 73 year old male with PMH of seizure d/o, urethral stricture s/p suprapubic catheter, CKD was transferred from SNF for diarrhea and vomiting for past few days admitted for UTI #UTI in pt with suprabupic catheter #Urethral strictures s/p suprapubic catheter -abx changed to Cefepime ([facility] resident) -monitor urinary output -f/u cultures -ID consulted #SEVEN on CKD - improved -likely prerenal 2/2 dehydration 2/2 diarrhea and vomiting -CTM -avoid nephrotoxic medications -gentle hydration -nephrology consulted - Dr. Sanchez (also PCP) #Hx of cardiomyopathy -cardiology consulted #DM -ISS -DM diet -FSG QAC and HS #Seizures -cont home meds -seizure precautions #Dementia -delirium precautions -Neuro consulted Full code DVT: HSq Subjective Date patient seen: Oct 06, 2018 ROS Limited/Unobtainable: No Allergies: Coded Allergies: NO KNOWN DRUG ALLERGIES (Unverified Allergy, Unknown, 04/11/14) All Systems: reviewed and negative except above Subjective NO acute overnight events, pt with no complaints, creatinine improved. Objective Last 24 Hour Vital Signs Date Time Temp Pulse Resp B/P (MAP) Pulse Ox O2 Delivery O2 Flow Rate FiO2 10/06/18 09:00 Room Air 10/06/18 08:35 65 145/67 10/06/18 08:34 145/67 10/06/18 08:34 65 145/67 10/06/18 08:00 65 10/06/18 08:00 97.0 65 22 145/67 (93) 99 10/06/18 06:00 153/73 10/06/18 04:00 97.4 69 20 153/73 (99) 98 10/06/18 04:00 64 10/06/18 00:00 68 10/06/18 00:00 97.7 68 20 144/78 (100) 97 10/05/18 21:06 147/83 10/05/18 21:04 88 147/83 10/05/18 21:00 Room Air 10/05/18 20:00 90 10/05/18 20:00 97.7 88 20 147/83 (104) 99 10/05/18 17:32 Room Air 10/05/18 15:50 97.9 86 17 147/70 100 Room Air Intake and Output 10/05/18 10/06/18 19:00 07:00 Intake Total 300 ml Output Total 200 ml Balance 100 ml Intake Oral 300 ml Output Urine Total 200 ml # Bowel Movements 1 Laboratory Tests 10/06/18 05:35: White Blood Count 6.8, Red Blood Count 4.44L, Hemoglobin 12.0L, Hematocrit 39.3L , Mean Corpuscular Volume 89, Mean Corpuscular Hemoglobin 27.1, Mean Corpuscular Hemoglobin Concent 30.6L, Red Cell Distribution Width 16.1H, Platelet Count 429, Mean Platelet Volume 4.8L, Neutrophils (%) (Auto) 66.3, Lymphocytes (%) (Auto) 14.5L, Monocytes (%) (Auto) 12.5H, Eosinophils (%) (Auto ) 4.4H, Basophils (%) (Auto) 2.4H, Sodium Level 133L, Potassium Level 4.5, Chloride Level 104, Carbon Dioxide Level 12L, Anion Gap 17H, Blood Urea Nitrogen 74H, Creatinine 3.6H, Estimat Glomerular Filtration Rate , Glucose Level 155H, Calcium Level 8.4L, Phosphorus Level 6.6H, Magnesium Level 2.1 Height (Feet): 5 Height (Inches): 7.00 Weight (Pounds): 143 Objective General Appearance: WD/WN, no apparent distress Lines, tubes and drains: peripheral HEENT: normocephalic, atraumatic Neck: non-tender, normal alignment Respiratory/Chest: chest wall non-tender, lungs clear, normal breath sounds, no respiratory distress Cardiovascular/Chest: normal peripheral pulses, normal rate, regular rhythm Abdomen: normal bowel sounds, non tender Extremities: normal range of motion Skin Exam: normal pigmentation 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
--- NOTE | 2018-10-06 12:38 | Consultation ---
History of Present Illness General Date patient seen: Oct 06, 2018 Time patient seen: 12:35 Chief Complaint: Nausea, Vomiting, and Diarrhea Present Illness HPI 73 year old male with PMH of seizure d/o, urethral stricture s/p suprapubic catheter, CKD was transferred from [facility] for diarrhea and vomiting for past few days. Pt states diarrhea and vomiting has resolved, however still feels a bit nauseous, otherwise no other complaints. Pt denies fevers, chills, superpubic pain, abdominal pain, weakness, chest pain or SOB. Allergies: Coded Allergies: NO KNOWN DRUG ALLERGIES (Unverified Allergy, Unknown, 04/11/14) Medication History Scheduled Amino Acids/Protein Hydrolys (Pro-Stat Liquid), 45 ML ORAL TID, (Reported) Amlodipine Besylate* (Amlodipine Besylate*), 10 MG ORAL DAILY, (Reported) Aspirin* (Aspirin*), 81 MG ORAL DAILY Benztropine Mesylate* (Benztropine Mesylate*), 1 MG PO BID, (Reported) Carbidopa/Levodopa 25-100 Mg* (Sinemet 25-100 Mg Tablet*), 1 TAB ORAL THREE TIMES A DAY, (Reported) Carvedilol (Coreg), 25 MG ORAL EVERY 12 HOURS Citalopram Hydrobromide* (Celexa*), 20 MG ORAL DAILY, (Reported) Clonidine Hcl* (Catapres*), 0.1 MG ORAL EVERY 6 HOURS, (Reported) Dextromethorphan Hbr/Quinidine (Nuedexta 20-10 Mg Capsule), 1 EACH PO Q12HR, ( Reported) Docusate Sodium* (Colace*), 100 MG ORAL DAILY, (Reported) Docusate Sodium* (Colace*), 100 MG ORAL DAILY, (Reported) Donepezil Hcl* (Aricept*), 10 MG ORAL DAILY, (Reported) Epoetin Zaid-Epbx (Retacrit), 10,000 UNIT SUBQ WED-WED-WED Finasteride* (Proscar*), 5 MG ORAL DAILY, (Reported) Hydralazine HCl (Hydralazine HCl), 100 MG ORAL Q8HR Insulin Aspart (Novolog Flexpen), 0 UNITS SUBQ BEFORE MEALS AND HS Insulin Glargine (Lantus), 0 SUBQ BEDTIME, (Reported) Insulin Glargine (Lantus), 24 SUBQ BEDTIME, (Reported) Isosorbide Mononitrate (Isosorbide Mononitrate Er), 60 MG ORAL DAILY Levofloxacin (Levofloxacin*), 250 MG ORAL DAILY Metoprolol Tartrate* (Metoprolol Tartrate*), 75 MG ORAL EVERY 12 HOURS, ( Reported) Metoprolol/Hydrochlorothiazide (Metoprolol-Hctz 50-25 Mg Tab), 1 TAB ORAL DAILY, (Reported) Phenytoin Sodium Extended* (Dilantin*), 100 MG ORAL THREE TIMES A DAY, (Reported ) Phenytoin Sodium Extended* (Dilantin*), 100 MG ORAL THREE TIMES A DAY, (Reported ) Pravastatin Sodium (Pravachol), 80 MG ORAL BEDTIME, (Reported) Tamsulosin Hcl (Tamsulosin Hcl*), 0.4 MG ORAL BEDTIME, (Reported) Tamsulosin Hcl (Tamsulosin Hcl*), 0.4 MG ORAL BEDTIME, (Reported) Vit B Cmplx 3/Fa/Vit C/Biotin (Nephro-Nemo Rx Tablet), 1 EACH PO DAILY, ( Reported) Whey Protein Isolate (Beneprotein), 2 EACH PO BID, (Reported) Scheduled PRN Acetaminophen* (Acetaminophen 325MG Tablet*), 650 MG ORAL Q6H PRN for For Pain, (Reported) Miscellaneous Medications Divalproex Sodium (Depakote), 250 MG PO, (Reported) Folic Acid/Vitamin B Comp W-C (Kiarra-Nemo Tablet), 0.8 MG PO, (Reported) Hum Insulin Nph/Reg Insulin Hm (Novolin 70-30 100 Unit/Ml Vial), 0 SUBQ, ( Reported) Insulin Lispro (Humalog), 0 SUBQ, (Reported) Nutritional Supplement (Resource 2.0), 120 ML PO, (Reported) Patient History Healthcare decision maker Resuscitation status Full Code Advanced Directive on File No Review of Systems Constitutional: Reports: no symptoms Eye: Reports: no symptoms ENT: Reports: no symptoms Respiratory: Reports: no symptoms Cardiovascular: Reports: no symptoms Gastrointestinal: Reports: abdominal pain, diarrhea, nausea, vomiting Genitourinary: Reports: no symptoms Musculoskeletal: Reports: no symptoms Skin: Reports: no symptoms Psychiatric: Reports: no symptoms Neurological: Reports: no symptoms Endocrine: Reports: no symptoms Hematologic/Lymphatic: Reports: no symptoms Physical Exam General Appearance: no apparent distress, alert Lines, tubes and drains: peripheral HEENT: normocephalic, atraumatic Neck: non-tender, normal alignment Respiratory/Chest: chest wall non-tender, lungs clear, normal breath sounds Cardiovascular/Chest: normal peripheral pulses, normal rate, regular rhythm Abdomen: normal bowel sounds, non tender, soft, no organomegaly, no mass Extremities: normal range of motion, non-tender, normal inspection 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, no motor/sensory deficits Last 24 Hour Vital Signs Date Time Temp Pulse Resp B/P (MAP) Pulse Ox O2 Delivery O2 Flow Rate FiO2 10/06/18 09:00 Room Air 10/06/18 08:35 65 145/67 10/06/18 08:34 145/67 10/06/18 08:34 65 145/67 10/06/18 08:00 65 10/06/18 08:00 97.0 65 22 145/67 (93) 99 10/06/18 06:00 153/73 10/06/18 04:00 97.4 69 20 153/73 (99) 98 10/06/18 04:00 64 10/06/18 00:00 68 10/06/18 00:00 97.7 68 20 144/78 (100) 97 10/05/18 21:06 147/83 10/05/18 21:04 88 147/83 10/05/18 21:00 Room Air 10/05/18 20:00 90 10/05/18 20:00 97.7 88 20 147/83 (104) 99 10/05/18 17:32 Room Air 10/05/18 15:50 97.9 86 17 147/70 100 Room Air Intake and Output 10/05/18 10/06/18 19:00 07:00 Intake Total 300 ml Output Total 200 ml Balance 100 ml Intake Oral 300 ml Output Urine Total 200 ml # Bowel Movements 1 Laboratory Tests Test 10/06/18 05:35 White Blood Count 6.8 K/UL (4.8-10.8) Red Blood Count 4.44 M/UL (4.70-6.10) L Hemoglobin 12.0 G/DL (14.2-18.0) L Hematocrit 39.3 % (42.0-52.0) L Mean Corpuscular Volume 89 FL (80-99) Mean Corpuscular Hemoglobin 27.1 PG (27.0-31.0) Mean Corpuscular Hemoglobin Concent 30.6 G/DL (32.0-36.0) L Red Cell Distribution Width 16.1 % (11.6-14.8) H Platelet Count 429 K/UL (150-450) Mean Platelet Volume 4.8 FL (6.5-10.1) L Neutrophils (%) (Auto) 66.3 % (45.0-75.0) Lymphocytes (%) (Auto) 14.5 % (20.0-45.0) L Monocytes (%) (Auto) 12.5 % (1.0-10.0) H Eosinophils (%) (Auto) 4.4 % (0.0-3.0) H Basophils (%) (Auto) 2.4 % (0.0-2.0) H Sodium Level 133 MMOL/L (136-145) L Potassium Level 4.5 MMOL/L (3.5-5.1) Chloride Level 104 MMOL/L (98-107) Carbon Dioxide Level 12 MMOL/L (21-32) L Anion Gap 17 mmol/L (5-15) H Blood Urea Nitrogen 74 mg/dL (7-18) H Creatinine 3.6 MG/DL (0.55-1.30) H Estimat Glomerular Filtration Rate mL/min (>60) Glucose Level 155 MG/DL (74-106) H Calcium Level 8.4 MG/DL (8.5-10.1) L Phosphorus Level 6.6 MG/DL (2.5-4.9) H Magnesium Level 2.1 MG/DL (1.8-2.4) Height (Feet): 5 Height (Inches): 7.00 Weight (Pounds): 143 Medications Current Medications Medications (Trade) Dose Ordered Sig/Thu Route PRN Reason Start Time Stop Time Status Last Admin Dose Admin Acetaminophen (Tylenol) 650 mg Q6H PRN ORAL Mild Pain/Temp > 100.5 10/05/18 17:45 11/04/18 17:44 Amlodipine Besylate (Norvasc) 10 mg DAILY ORAL 10/06/18 09:00 11/05/18 08:59 10/06/18 08:34 Aspirin (ASA) 81 mg DAILY ORAL 10/06/18 09:00 11/05/18 08:59 10/06/18 08:34 Benztropine Mesylate (Cogentin) 1 mg BID ORAL 10/05/18 18:00 11/04/18 17:59 10/06/18 08:34 Carbidopa/Levodopa (Sinemet 25/100) 1 tab THREE TIMES A DAY ORAL 10/05/18 18:00 11/04/18 17:59 10/06/18 08:34 Cefepime HCl 0.5 gm/Dextrose 55 ml @ 110 mls/hr Q24H IVPB 10/05/18 20:00 10/12/18 19:59 10/05/18 20:00 Citalopram Hydrobromide (celeXA) 20 mg DAILY ORAL 10/06/18 09:00 11/05/18 08:59 10/06/18 08:35 Docusate Sodium (Colace) 100 mg DAILY ORAL 10/06/18 09:00 11/05/18 08:59 10/06/18 08:34 Donepezil HCl (Aricept) 10 mg DAILY ORAL 10/06/18 09:00 11/05/18 08:59 10/06/18 08:34 Epoetin Zaid (Epoetin Zaid-EPBX(NON ESRD)) 10,000 unit WED-WED-WED SUBQ 10/05/18 21:00 11/04/18 20:59 10/05/18 21:04 Heparin Sodium (Porcine) (Heparin 5000 units/ml) 5,000 units EVERY 12 HOURS SUBQ 10/05/18 21:00 11/04/18 20:59 10/06/18 08:36 Hydralazine HCl (Apresoline) 100 mg Q8HR ORAL 10/05/18 22:00 11/04/18 21:59 10/06/18 06:00 Iopamidol (Isovue-300 100ml) 100 ml NOW PRN INJ Radiology Procedure 10/05/18 12:00 10/07/18 11:59 Isosorbide Mononitrate (Imdur) 60 mg DAILY ORAL 10/06/18 09:00 11/05/18 08:59 10/06/18 08:34 Metoprolol Tartrate (Lopressor) 75 mg EVERY 12 HOURS ORAL 10/05/18 21:00 11/04/18 20:59 10/06/18 08:35 Oxycodone/ Acetaminophen (Percocet 5-325) 1 tab Q6H PRN ORAL Severe Pain (Pain Scale 7-10) 10/05/18 17:45 10/12/18 17:44 Phenytoin (Dilantin) 100 mg THREE TIMES A DAY ORAL 10/05/18 18:00 11/04/18 17:59 10/06/18 08:34 Pravastatin Sodium (Pravachol) 80 mg BEDTIME ORAL 10/05/18 21:00 11/04/18 20:59 10/05/18 21:04 Sodium Chloride 1,000 ml @ 50 mls/hr Q20H IV 10/05/18 23:00 11/04/18 22:59 10/05/18 23:00 Vitamin B Complex/ Vit C/Folic Acid (Nephrovite) 1 tab DAILY ORAL 10/06/18 09:00 11/05/18 08:59 10/06/18 08:34 Assessment/Plan Status: stable Assessment/Plan: Assessment/Plan UTI in pt with suprabupic catheter Urethral strictures s/p suprapubic catheter SEVEN on CKD Hx of cardiomyopathy DM Seizures Dementia -Echocardiogram re hx of cardiomyopathy -Outpatient stress test, CT showed atherosclerotic disease, no chest pain currently -Statin -Aspirin -Continue norvasc -Hold ACEI/ARB given SEVEN Eric Arce MD Oct 06, 2018 12:38
--- NOTE | 2018-10-06 14:24 | Infectious Diseases Prog Note ---
Assessment/Plan Assessment/Plan Full consult dictated: A) gram neg uti complicated uti pmh noted sp catheter allergies - nkda P) cefepime check urine culture monitor labs thank you Subjective Allergies: Coded Allergies: NO KNOWN DRUG ALLERGIES (Unverified Allergy, Unknown, 04/11/14) Objective Vital Signs Last 24 Hour Vital Signs Date Time Temp Pulse Resp B/P (MAP) Pulse Ox O2 Delivery O2 Flow Rate FiO2 10/06/18 13:38 119/62 10/06/18 12:00 97.3 74 22 145/67 (93) 99 10/06/18 12:00 78 10/06/18 09:00 Room Air 10/06/18 08:35 65 145/67 10/06/18 08:34 145/67 10/06/18 08:34 65 145/67 10/06/18 08:00 65 10/06/18 08:00 97.0 65 22 145/67 (93) 99 10/06/18 06:00 153/73 10/06/18 04:00 97.4 69 20 153/73 (99) 98 10/06/18 04:00 64 10/06/18 00:00 68 10/06/18 00:00 97.7 68 20 144/78 (100) 97 10/05/18 21:06 147/83 10/05/18 21:04 88 147/83 10/05/18 21:00 Room Air 10/05/18 20:00 90 10/05/18 20:00 97.7 88 20 147/83 (104) 99 10/05/18 17:32 Room Air 10/05/18 15:50 97.9 86 17 147/70 100 Room Air Height (Feet): 5 Height (Inches): 7.00 Weight (Pounds): 143 Microbiology Date/Time Source Procedure Growth Status 10/05/18 12:15 Urine,Clean Catch Urine Culture - Preliminary Gram Negative Carlin Resulted Laboratory Tests Test 10/06/18 05:35 White Blood Count 6.8 K/UL (4.8-10.8) Red Blood Count 4.44 M/UL (4.70-6.10) L Hemoglobin 12.0 G/DL (14.2-18.0) L Hematocrit 39.3 % (42.0-52.0) L Mean Corpuscular Volume 89 FL (80-99) Mean Corpuscular Hemoglobin 27.1 PG (27.0-31.0) Mean Corpuscular Hemoglobin Concent 30.6 G/DL (32.0-36.0) L Red Cell Distribution Width 16.1 % (11.6-14.8) H Platelet Count 429 K/UL (150-450) Mean Platelet Volume 4.8 FL (6.5-10.1) L Neutrophils (%) (Auto) 66.3 % (45.0-75.0) Lymphocytes (%) (Auto) 14.5 % (20.0-45.0) L Monocytes (%) (Auto) 12.5 % (1.0-10.0) H Eosinophils (%) (Auto) 4.4 % (0.0-3.0) H Basophils (%) (Auto) 2.4 % (0.0-2.0) H Sodium Level 133 MMOL/L (136-145) L Potassium Level 4.5 MMOL/L (3.5-5.1) Chloride Level 104 MMOL/L (98-107) Carbon Dioxide Level 12 MMOL/L (21-32) L Anion Gap 17 mmol/L (5-15) H Blood Urea Nitrogen 74 mg/dL (7-18) H Creatinine 3.6 MG/DL (0.55-1.30) H Estimat Glomerular Filtration Rate mL/min (>60) Glucose Level 155 MG/DL (74-106) H Calcium Level 8.4 MG/DL (8.5-10.1) L Phosphorus Level 6.6 MG/DL (2.5-4.9) H Magnesium Level 2.1 MG/DL (1.8-2.4) Current Medications Medications (Trade) Dose Ordered Sig/Thu Route PRN Reason Start Time Stop Time Status Last Admin Dose Admin Acetaminophen (Tylenol) 650 mg Q6H PRN ORAL Mild Pain/Temp > 100.5 10/05/18 17:45 11/04/18 17:44 Amlodipine Besylate (Norvasc) 10 mg DAILY ORAL 10/06/18 09:00 11/05/18 08:59 10/06/18 08:34 Aspirin (ASA) 81 mg DAILY ORAL 10/06/18 09:00 11/05/18 08:59 10/06/18 08:34 Benztropine Mesylate (Cogentin) 1 mg BID ORAL 10/05/18 18:00 11/04/18 17:59 10/06/18 08:34 Carbidopa/Levodopa (Sinemet 25/100) 1 tab THREE TIMES A DAY ORAL 10/05/18 18:00 11/04/18 17:59 10/06/18 13:37 Cefepime HCl 0.5 gm/Dextrose 55 ml @ 110 mls/hr Q24H IVPB 10/05/18 20:00 10/12/18 19:59 10/05/18 20:00 Citalopram Hydrobromide (celeXA) 20 mg DAILY ORAL 10/06/18 09:00 11/05/18 08:59 10/06/18 08:35 Docusate Sodium (Colace) 100 mg DAILY ORAL 10/06/18 09:00 11/05/18 08:59 10/06/18 08:34 Donepezil HCl (Aricept) 10 mg DAILY ORAL 10/06/18 09:00 11/05/18 08:59 10/06/18 08:34 Epoetin Zaid (Epoetin Zaid-EPBX(NON ESRD)) 10,000 unit WED-WED-WED SUBQ 10/05/18 21:00 11/04/18 20:59 10/05/18 21:04 Heparin Sodium (Porcine) (Heparin 5000 units/ml) 5,000 units EVERY 12 HOURS SUBQ 10/05/18 21:00 11/04/18 20:59 10/06/18 08:36 Hydralazine HCl (Apresoline) 100 mg Q8HR ORAL 10/05/18 22:00 11/04/18 21:59 10/06/18 13:38 Iopamidol (Isovue-300 100ml) 100 ml NOW PRN INJ Radiology Procedure 10/05/18 12:00 10/07/18 11:59 Isosorbide Mononitrate (Imdur) 60 mg DAILY ORAL 10/06/18 09:00 11/05/18 08:59 10/06/18 08:34 Metoprolol Tartrate (Lopressor) 75 mg EVERY 12 HOURS ORAL 10/05/18 21:00 11/04/18 20:59 10/06/18 08:35 Oxycodone/ Acetaminophen (Percocet 5-325) 1 tab Q6H PRN ORAL Severe Pain (Pain Scale 7-10) 10/05/18 17:45 10/12/18 17:44 Phenytoin (Dilantin) 100 mg THREE TIMES A DAY ORAL 10/05/18 18:00 11/04/18 17:59 10/06/18 13:38 Pravastatin Sodium (Pravachol) 80 mg BEDTIME ORAL 10/05/18 21:00 11/04/18 20:59 10/05/18 21:04 Sodium Chloride 1,000 ml @ 50 mls/hr Q20H IV 10/05/18 23:00 11/04/18 22:59 10/05/18 23:00 Vitamin B Complex/ Vit C/Folic Acid (Nephrovite) 1 tab DAILY ORAL 10/06/18 09:00 11/05/18 08:59 10/06/18 08:34 Catina Hooper MD Oct 06, 2018 14:24
[2018-10-06] MEDS: Cefepime 1gm/D5W 55ml IVPB SCH ×2 (15:36)
[2018-10-06 16:00] VITALS: BP 146/61
--- NOTE | 2018-10-06 18:50 | Neurology Progress Note ---
Interim History Interim History ROS Limited/Unobtainable: Yes Complaints: none Events: more alert, ambulated Objective Physical Exam Last Vital Signs Date Time Temp Pulse Resp B/P (MAP) Pulse Ox O2 Delivery O2 Flow Rate FiO2 10/06/18 16:00 97.2 71 21 146/61 (89) 100 10/06/18 09:00 Room Air Laboratory Tests Test 10/06/18 05:35 White Blood Count 6.8 K/UL (4.8-10.8) Red Blood Count 4.44 M/UL (4.70-6.10) L Hemoglobin 12.0 G/DL (14.2-18.0) L Hematocrit 39.3 % (42.0-52.0) L Mean Corpuscular Volume 89 FL (80-99) Mean Corpuscular Hemoglobin 27.1 PG (27.0-31.0) Mean Corpuscular Hemoglobin Concent 30.6 G/DL (32.0-36.0) L Red Cell Distribution Width 16.1 % (11.6-14.8) H Platelet Count 429 K/UL (150-450) Mean Platelet Volume 4.8 FL (6.5-10.1) L Neutrophils (%) (Auto) 66.3 % (45.0-75.0) Lymphocytes (%) (Auto) 14.5 % (20.0-45.0) L Monocytes (%) (Auto) 12.5 % (1.0-10.0) H Eosinophils (%) (Auto) 4.4 % (0.0-3.0) H Basophils (%) (Auto) 2.4 % (0.0-2.0) H Sodium Level 133 MMOL/L (136-145) L Potassium Level 4.5 MMOL/L (3.5-5.1) Chloride Level 104 MMOL/L (98-107) Carbon Dioxide Level 12 MMOL/L (21-32) L Anion Gap 17 mmol/L (5-15) H Blood Urea Nitrogen 74 mg/dL (7-18) H Creatinine 3.6 MG/DL (0.55-1.30) H Estimat Glomerular Filtration Rate mL/min (>60) Glucose Level 155 MG/DL (74-106) H Calcium Level 8.4 MG/DL (8.5-10.1) L Phosphorus Level 6.6 MG/DL (2.5-4.9) H Magnesium Level 2.1 MG/DL (1.8-2.4) Impression/Recommendations Problems: (1) Hyperkalemia (2) Acute hyponatremia (3) Abnormal laboratory test result (4) Leukocytosis (5) Hematuria, gross (6) Acute renal insufficiency (7) Renal failure (ARF), acute on chronic (8) Bilateral hydronephrosis (9) Elevated troponin I level (10) Hypertensive kidney disease (11) AMI (acute myocardial infarction) (12) Cardiomyopathy (13) Anemia (14) Pyelonephritis (15) Nausea & vomiting (16) Hyponatremia (17) Renal failure (18) UTI (urinary tract infection) Status: stable Recommendations PT OT ATB per primary Jeremiah Sandoval MD Oct 06, 2018 18:50
--- NOTE | 2018-10-06 19:10 | NUR ---
HAND-OFF: Report given to Fernando Conrad RN. Patient resting in bed and in stable condition. He does not display any signs of distress or SOB.
[2018-10-06 20:00] VITALS: BP 149/67
--- NOTE | 2018-10-06 21:46 | Cardiology Report ---
APPROVED REPORT EKG Measurement Heart [id number] Sinus rhythm with 1st degree AV block with occasional premature ventricular complexes Left axis deviation Anteroseptal infarct, age undetermined Abnormal ECG
--- NOTE | 2018-10-06 21:47 | NUR ---
NURSE NOTES: Received patient from Gely VIRGEN. Patient in bed, on room air, no s/s of respiratory distress. Bed in low position, locked, bed alarm on. Patient awake, alert and oriented x 2, calm and cooperative. Suprapubic catheter intact, patent, with yellow output. PIV on RAC #20, NS infusing at 50ml/hr.
--- NOTE | 2018-10-06 22:45 | Consultation ---
DATE OF CONSULTATION: 10/06/2018 INFECTIOUS DISEASES CONSULTATION ATTENDING PHYSICIAN: Mahendra Porter M.D. REFERRING PHYSICIAN: Giselle Medina M.D. REASON FOR CONSULTATION: Complicated gram-negative UTI. CHIEF COMPLAINT: His chief complaint coming into the hospital is urinary tract infection and renal failure. HISTORY OF PRESENT ILLNESS: This is a 73-year-old male, who has history of suprapubic catheter. The patient presented to [facility] with renal failure and complicated gram-negative UTI. We discussed with nursing staff. The patient seems to be confused at this time. He is in significant renal failure with creatinine of 3.6. The patient's UA had too many to count white blood cells and 3+ leukocyte esterase. The patient likely has at present urine culture with gram-negative organisms and the patient likely has complicated gram-negative UTI. Infectious Disease consultation is requested for antibiotic management. The patient is currently on cefepime 0.5 g IV q.24 hours. I discussed with pharmacy. We will increase the dose to 1 g IV q.24 hours for more aggressive dosing. MAR was noted. Orders were noted. Notes were reviewed. Case discussed with RN. REVIEW OF SYSTEMS: CONSTITUTIONAL: The patient has generalized fatigue, but no focal weakness. He is alert. He is confused and a poor historian. HEAD AND NECK: No head pain or neck pain. CARDIAC: No chest pain. GASTROINTESTINAL: No nausea, vomiting, or diarrhea. GENITOURINARY: He has suprapubic catheter. PULMONARY: No congestion or short of breath. No cough, hemoptysis, or secretions. SKIN: No rash. EXTREMITIES: No extremity pain. NEUROLOGIC: No seizures. Generalized fatigue. No new focal weakness what looks like. He is alert and responsive. No seizures, rash, or itching. No fever or chills. PAST MEDICAL HISTORY: The patient's past medical history includes the following, the patient has a past medical history of renal failure. He has anemia. He has hyponatremia. Other past medical history includes the following, he has a history of urethral stricture, suprapubic catheter, and chronic kidney disease. He has a history of hypertension. He has a history of hypertension and type 2 diabetes mellitus. He has a history of BPH with urinary retention, history of Parkinson disease, history of dementia, history of seizure disorder, history of epilepsy, and history of COPD. ALLERGIES: The patient has no known drug allergies. No antibiotic allergies. SOCIAL HISTORY: Negative for smoking, alcohol, or drug abuse. FAMILY HISTORY: Noncontributory. Negative for exposure to tuberculosis or cancer. MEDICATIONS: Upon reviewing the MAR, the patient is on following medications, he is on cefepime, amlodipine, aspirin, Celexa, docusate, donepezil, isosorbide, hydralazine, metoprolol, atorvastatin, heparin, Cogentin, Sinemet, carbidopa, phenytoin, acetaminophen, cefepime was increased to 1 g IV q.24 hours from 0.5 g every 24 hours. Outside medications are noted and reconciliated. PHYSICAL EXAMINATION: VITAL SIGNS: Temperature is 97.3 degrees, pulse rate is 74, respiratory rate 22, blood pressure 145/67, and saturation 99% on room air. GENERAL: Alert, responsive, in no acute distress, confused, and poor historian. HEAD AND NECK: Oral exam, no thrush. Eye exam, no icterus. Neck is supple. No JVD. Normocephalic. No icterus or thrush. HEART: Regular. No obvious gallop or murmur. No friction rub. ABDOMEN: Soft. Positive bowel sounds. Nontender. LUNGS: Clear bilaterally. No rhonchi or rales. SKIN: No rash. MUSCULOSKELETAL: No effusions. Legs are without cellulitis. PERIPHERAL VASCULAR: No cyanosis. GENITOURINARY: He has suprapubic catheter. Urine is cloudy. LINE SITES: Without phlebitis. NEUROLOGIC: Generalized weakness and responsive. Poor historian. LABORATORY AND DIAGNOSTIC DATA: Laboratory data as follows. White count 6.8 and hemoglobin 12.0. Creatinine 3.6. LFTs were noted. Urine culture greater than 100,000 gram-negative rods. Urinalysis had 3+ leukocyte esterase, too many to count white blood cells, and many bacteria. Imaging studies, chest x-ray showed no acute findings. CT scan of the abdomen and pelvis showed urethritis, cystitis, chronic inflammation, infection, and hydronephrosis. ASSESSMENT AND PLAN: 1. The patient has a complicated gram-negative UTI with confusion. Urinalysis significantly positive. Urine culture greater than 100,000 gram-negative rods. In view of the confusional state, I would treat aggressively with gram-negative coverage for the complicated gram-negative UTI. I agree with cefepime. We will increase the dose to 1 g q.24 hours adjusted for renal failure. Continue cefepime for gram-negative UTI. Check urine culture. Monitor the patient clinically. 2. The patient has acute kidney and elevated creatinine. 3. Anemia. 4. Hyponatremia. 5. Parkinson's. 6. Dementia. 7. Suprapubic catheter. 8. Urethral stricture. 9. BPH. 10. Urinary retention. 11. Hypertension. 12. Diabetes. 13. Blood sugar and blood pressure treatment per primary. 14. COPD. 15. Seizures and epilepsy. 16. No known drug allergies. 17. Social history negative. 18. Family history noncontributory. 19. MAR is noted. 20. Case discussed with RN. 21. Continue treatment with primary consultants. 22. Skin care protocol. 23. Notes were noted. Orders were entered. Catina Hooper M.D. DR: Leo JOB#: [id number] CC:
--- NOTE | 2018-10-06 23:15 | Consultation ---
DATE OF CONSULTATION: 10/06/2018 CONSULTING PHYSICIAN: Paulina Krishnan M.D. HISTORY OF PRESENT ILLNESS: This is a 73-year-old male whom I am familiar with from [facility]. The patient has a history of multiple medical problems, including depression, seizure disorder, dementia who has been admitted nausea, vomiting, diarrhea. The patient was anxious and somewhat agitated this morning. The patient is a poor historian. Has memory impairment. PAST PSYCHIATRIC HISTORY: Depression and dementia. PAST MEDICAL HISTORY: Significant for anemia, pyelonephritis, hyperkalemia, hyponatremia, leukocytosis, acute myocardial infarction, UTI, cardiomyopathy, hypertension, and renal failure. ALLERGIES: No known drug allergies. SUBSTANCE ABUSE HISTORY: No known history of illicit drug use or alcohol. MENTAL STATUS EXAMINATION: The patient is alert and oriented times self. Mood is dysphoric and anxious. Affect is constricted, congruent with mood. Thought process is concrete. Thought content, no suicidal or homicidal ideations. Memory is impaired. Insight and judgment impaired. ASSESSMENT: [place] I Major depressive disorder. [place] II Deferred. [place] III As above. [place] IV Low. [place] V 20 PLAN: 1. The patient will be started on Celexa 20 mg in the morning. Continue . 2. The patient will benefit from low dose of antipsychotics. 3. We will continue to follow and readjust the medications. Paulina Krishnan M.D. DR: SLOANE JOB#: [id number] CC:
[2018-10-07] VITALS: BP 141/67
[2018-10-07 04:00] VITALS: BP 139/71
[2018-10-07] MEDS: HydrALAZINE 50mg tab ORAL SCH ×3 (05:15→22:14)
--- NOTE | 2018-10-07 06:00 | NUR ---
NURSE NOTES: Patient is still resistant to care. Calling staff names. Patient kept yelling after the professor of graphic design leida blood. Patient kept saying "take me off!" but there is nothing on him. Notified Dr. Whitlock and Dr. Krishnan regarding patient's agitation. No response.
[2018-10-07 06:26] LABS: EOSINOPHILS % (AUTO) 3.7 % (0.0-3.0); HEMATOCRIT 34.2 % (42.0-52.0); HEMOGLOBIN 10.4 G/DL (14.2-18.0); LYMPHOCYTES % (AUTO) 13.9 % (20.0-45.0); MEAN CORPUSCULAR VOLUME 88 FL (80-99); MONOCYTES % (AUTO) 9.9 % (1.0-10.0); NEUTROPHILS % (AUTO) 70.4 % (45.0-75.0); PLATELET COUNT 409 K/UL (150-450); WHITE BLOOD COUNT 8.1 K/UL (4.8-10.8)
[2018-10-07 07:06] LABS: ANION GAP 16 mmol/L (5-15); BLOOD UREA NITROGEN 74 mg/dL (7-18); CARBON DIOXIDE 13 MMOL/L (21-32); CHLORIDE 99 MMOL/L (98-107); CREATININE 3.4 MG/DL (0.55-1.30); POTASSIUM 4.5 MMOL/L (3.5-5.1); SODIUM 128 MMOL/L (136-145)
--- NOTE | 2018-10-07 07:11 | NUR ---
HAND-OFF: Report given to Gely VIRGEN. Plan of care endorsed.
--- NOTE | 2018-10-07 07:11 | NUR ---
NURSE NOTES: I received the patient awake and resting in bed. Patient alert and oriented x2. Bed in the lowest position and call light within reach. Patient does not display any signs of distress or SOB.
--- NOTE | 2018-10-07 07:45 | NUR ---
NURSE NOTES: Patient very aggravated and yelling to leave him alone. He ate a minimal amount of breakfast and said it was going to make him sick. Patient refused being connected to his IV fluids. I attempted to explain to the patient the need for his fluids, but he continued to refuse and yell. Patient's bed in the lowest position and call light within reach.
--- NOTE | 2018-10-07 08:24 | NUR ---
NURSE NOTES: Patient continues to refuse vitals signs and to be aggravated. Patient refused morning medications. I educated the patient about what medications he is to take and why, and he continued to refuse medications. He said he wants to be left alone. Patient resting in bed and does not display any signs of distress or SOB. Bed in the lowest position and call light within reach.
--- NOTE | 2018-10-07 08:38 | Cardiology Progress Note ---
Assessment/Plan Status: stable Assessment/Plan Assessment/Plan: Assessment/Plan UTI in pt with suprabupic catheter Urethral strictures s/p suprapubic catheter SEVEN on CKD Hx of cardiomyopathy DM Seizures Dementia -Echocardiogram re hx of cardiomyopathy -Outpatient stress test, CT showed atherosclerotic disease, no chest pain currently -Statin -Aspirin -Continue norvasc -Hold ACEI/ARB given SEVEN Subjective Cardiovascular: Reports: no symptoms Respiratory: Reports: no symptoms Gastrointestinal/Abdominal: Reports: no symptoms Genitourinary: Reports: no symptoms Subjective No acute events, patient refusing meds and vitals. Echo pending Objective Last 24 Hour Vital Signs Date Time Temp Pulse Resp B/P (MAP) Pulse Ox O2 Delivery O2 Flow Rate FiO2 10/07/18 05:15 139/71 10/07/18 04:00 64 10/07/18 04:00 98.2 72 18 139/71 (93) 98 10/07/18 00:00 74 10/07/18 00:00 98.0 69 20 141/67 (91) 99 10/06/18 21:06 149/67 10/06/18 21:00 Room Air 10/06/18 20:59 67 149/67 10/06/18 20:00 98.2 67 20 149/67 (94) 100 10/06/18 20:00 69 10/06/18 16:00 97.2 71 21 146/61 (89) 100 10/06/18 16:00 67 10/06/18 13:38 119/62 10/06/18 12:00 97.3 74 22 145/67 (93) 99 10/06/18 12:00 78 10/06/18 09:00 Room Air General Appearance: alert, mild distress EENT: PERRL/EOMI, normal ENT inspection, TMs normal Neck: non-tender, normal alignment, supple, normal inspection, no JVD Rhythm: NSR Cardiovascular: normal peripheral pulses, normal rate Respiratory/Chest: chest wall non-tender Abdomen: normal bowel sounds, non tender Extremities: normal range of motion, non-tender, normal inspection Neurologic: washing machine striper II-XII grossly normal, no motor/sensory deficits Intake and Output 10/06/18 10/07/18 18:59 06:59 Intake Total 600 ml Output Total 600 ml 400 ml Balance 0 ml -400 ml Intake Oral 600 ml Output Urine Total 600 ml 400 ml # Bowel Movements 1 Laboratory Tests Test 10/07/18 05:00 White Blood Count 8.1 K/UL (4.8-10.8) Red Blood Count 3.90 M/UL (4.70-6.10) L Hemoglobin 10.4 G/DL (14.2-18.0) L Hematocrit 34.2 % (42.0-52.0) L Mean Corpuscular Volume 88 FL (80-99) Mean Corpuscular Hemoglobin 26.5 PG (27.0-31.0) L Mean Corpuscular Hemoglobin Concent 30.3 G/DL (32.0-36.0) L Red Cell Distribution Width 17.0 % (11.6-14.8) H Platelet Count 409 K/UL (150-450) Mean Platelet Volume 4.8 FL (6.5-10.1) L Neutrophils (%) (Auto) 70.4 % (45.0-75.0) Lymphocytes (%) (Auto) 13.9 % (20.0-45.0) L Monocytes (%) (Auto) 9.9 % (1.0-10.0) Eosinophils (%) (Auto) 3.7 % (0.0-3.0) H Basophils (%) (Auto) 2.0 % (0.0-2.0) Sodium Level 128 MMOL/L (136-145) L Potassium Level 4.5 MMOL/L (3.5-5.1) Chloride Level 99 MMOL/L (98-107) Carbon Dioxide Level 13 MMOL/L (21-32) L Anion Gap 16 mmol/L (5-15) H Blood Urea Nitrogen 74 mg/dL (7-18) H Creatinine 3.4 MG/DL (0.55-1.30) H Estimat Glomerular Filtration Rate mL/min (>60) Glucose Level 132 MG/DL (74-106) H Calcium Level 8.0 MG/DL (8.5-10.1) L Microbiology Date/Time Source Procedure Growth Status 10/05/18 12:30 Blood Blood Culture - Preliminary NO GROWTH AFTER 24 HOURS Resulted 10/05/18 12:15 Blood Blood Culture - Preliminary NO GROWTH AFTER 24 HOURS Resulted 10/05/18 12:15 Urine,Clean Catch Urine Culture - Preliminary Gram Negative Carlin Resulted 10/05/18 15:15 Rectum VRE Culture - Final Enterococcus Faecalis - Vre Resulted 10/05/18 15:15 Rectum Pending Resulted Eric Arce MD Oct 07, 2018 08:38
[2018-10-07] MEDS: Nephrovite tab (Rena-Vite) ORAL SCH (09:00)
[2018-10-07] MEDS: Metoprolol Tartrate 50mg tab ORAL SCH (09:00)
[2018-10-07] MEDS: Heparin 5000 units/ml inj SUBQ SCH ×2 (09:00→20:20)
[2018-10-07] MEDS ORDERED: LORazepam 1mg tab ORAL PRN (09:15)
--- NOTE | 2018-10-07 09:51 | Cardiology Report ---
APPROVED REPORT EXAM: Two-dimensional and M-mode echocardiogram with Doppler and color Doppler. INDICATION Left ventricular function M-Mode DIMENSIONS IVSd1.3 (0.7-1.1cm)Left Atrium (MM)3.3 (1.6-4.0cm) LVDd5.1 (3.5-5.6cm)Aortic Root3.7 (2.0-3.7cm) PWd1.2 (0.7-1.1cm)Aortic Cusp Exc.1.9 (1.5-2.0cm) LVDs3.3 (2.5-4.0cm) PWs1.3 cm Technically difficult and limited study due to patient's resistance. Study quality precludes accurate assessment of regional wall motion. Normal left ventricular chamber size. Mildly depressed systolic function and wall motion. Left ventricular apical septum akinetic. Left ventricular ejection fraction estimated to be 45 %. Mild left ventricular hypertrophy. No evidence of pericardial effusion. All other cardiac chamber sizes are within normal limits. Focal aortic valve sclerosis with adequate cusp excursion. Thickened mitral valve leaflets with normal excursion. Mitral annulus and aortic root calcification. Pulmonic valve not well visualized. Normal tricuspid valve structure. IVC is normal in size with physiological collapse. A color flow and spectral Doppler study was performed and revealed: No aortic regurgitation. No mitral regurgitation. Mitral diastolic velocities suggest mild left ventricular diastolic dysfunction (Grade I). Trace tricuspid regurgitation. Tricuspid systolic velocities suggests peak right ventricular systolic pressure of 9 mmHg.
[2018-10-07 10:28] VITALS: BP 140/70
[2018-10-07] MEDS: Donepezil 10mg tab ORAL SCH (10:29)
[2018-10-07] MEDS: Aspirin Baby 81mg ORAL SCH (10:29)
[2018-10-07] MEDS: Benztropine 1mg tab ORAL SCH ×2 (10:29→17:44)
[2018-10-07] MEDS: Docusate 100mg cap ORAL SCH (10:29)
[2018-10-07] MEDS: Imdur 30mg tab ORAL SCH (10:29)
[2018-10-07] MEDS: Levodopa/Carbidopa 25/100 tab ORAL SCH ×3 (10:29→17:44)
[2018-10-07] MEDS: Citalopram Hydrobromide 10mg Tab ORAL SCH (10:30)
[2018-10-07] MEDS: Phenytoin 100mg cap ORAL SCH ×3 (10:30→17:44)
--- NOTE | 2018-10-07 10:33 | NUR ---
NURSE NOTES: Patient very agitated. Patient's 0900 medications were given late because he refused them multiple times and refused vital signs. Patient was still agitated, but agreed to having his vital signs checked. Patient took some of his 0900 medications. Patient very agitated and keeps asking when he is going to leave. Patient resting in bed, bed in the lowest position and call light within reach. I will continue to monitor the patient.kelly
--- NOTE | 2018-10-07 12:58 | Neurology Progress Note ---
Interim History Interim History ROS Limited/Unobtainable: Yes Complaints: none Events: more alert Interim History still with abd pain, no MARROQUIN more oriented Objective Physical Exam Last Vital Signs Date Time Temp Pulse Resp B/P (MAP) Pulse Ox O2 Delivery O2 Flow Rate FiO2 10/07/18 10:29 140/70 10/07/18 10:29 79 10/07/18 08:36 Room Air 10/07/18 04:00 98.2 18 98 Laboratory Tests Test 10/07/18 05:00 White Blood Count 8.1 K/UL (4.8-10.8) Red Blood Count 3.90 M/UL (4.70-6.10) L Hemoglobin 10.4 G/DL (14.2-18.0) L Hematocrit 34.2 % (42.0-52.0) L Mean Corpuscular Volume 88 FL (80-99) Mean Corpuscular Hemoglobin 26.5 PG (27.0-31.0) L Mean Corpuscular Hemoglobin Concent 30.3 G/DL (32.0-36.0) L Red Cell Distribution Width 17.0 % (11.6-14.8) H Platelet Count 409 K/UL (150-450) Mean Platelet Volume 4.8 FL (6.5-10.1) L Neutrophils (%) (Auto) 70.4 % (45.0-75.0) Lymphocytes (%) (Auto) 13.9 % (20.0-45.0) L Monocytes (%) (Auto) 9.9 % (1.0-10.0) Eosinophils (%) (Auto) 3.7 % (0.0-3.0) H Basophils (%) (Auto) 2.0 % (0.0-2.0) Sodium Level 128 MMOL/L (136-145) L Potassium Level 4.5 MMOL/L (3.5-5.1) Chloride Level 99 MMOL/L (98-107) Carbon Dioxide Level 13 MMOL/L (21-32) L Anion Gap 16 mmol/L (5-15) H Blood Urea Nitrogen 74 mg/dL (7-18) H Creatinine 3.4 MG/DL (0.55-1.30) H Estimat Glomerular Filtration Rate mL/min (>60) Glucose Level 132 MG/DL (74-106) H Calcium Level 8.0 MG/DL (8.5-10.1) L Impression/Recommendations Problems: (1) Hyperkalemia (2) Acute hyponatremia (3) Abnormal laboratory test result (4) Leukocytosis (5) Hematuria, gross (6) Acute renal insufficiency (7) Renal failure (ARF), acute on chronic (8) Bilateral hydronephrosis (9) Elevated troponin I level (10) Hypertensive kidney disease (11) AMI (acute myocardial infarction) (12) Cardiomyopathy (13) Anemia (14) Pyelonephritis (15) Nausea & vomiting (16) Hyponatremia (17) Renal failure (18) UTI (urinary tract infection) Status: stable Recommendations PT OT ATB per primary Jeremiah Sandoval MD Oct 07, 2018 12:58
--- NOTE | 2018-10-07 13:03 | NUR ---
CASE MANAGEMENT:REVIEW 10/07/18 SI: UTI. AC/CHR RENAL FAILURE 98.2 72 18 139/71 98% ON RA H/H-10.4/34.2 NA-128 BUN+74 CR+3.4 IS: IV CEFEPIME Q24 IVF@50/HR NORVASC PO QD ASA PO QD CELEXA PO QD ARICEPT PO QD IMDUR PO QD HYDRALAZINE PO Q8HRS EPOETIN SQ MWF LOPRESSOR PO Q12 HEPARIN SQ 12 COGENTIN PO BID DILANTIN PO TID : TELEMETRY STATUS DCP: FROM [facility]
[2018-10-07] MEDS: Cefepime 1gm/D5W 55ml IVPB SCH ×2 (15:18)
[2018-10-07 16:00] VITALS: BP 141/81
--- NOTE | 2018-10-07 17:44 | General Progress Note ---
Assessment/Plan Status: stable Assessment/Plan: 73 year old male with PMH of seizure d/o, urethral stricture s/p suprapubic catheter, CKD was transferred from [facility] for diarrhea and vomiting for past few days admitted for UTI #UTI in pt with suprabupic catheter #Urethral strictures s/p suprapubic catheter -abx changed to Cefepime (SNF resident) - cont until sensitivities return -monitor urinary output -f/u cultures -ID consult appreciated #SEVEN on CKD - improved -likely prerenal 2/2 dehydration 2/2 diarrhea and vomiting -CTM -avoid nephrotoxic medications -gentle hydration -nephrology consulted - Dr. Sanchez (also PCP) - Dr. Rodriguez covering #Hx of cardiomyopathy -cardiology consult appreciated -echo reviewed #DM -ISS -DM diet -FSG QAC and HS #Seizures -cont home meds -seizure precautions #Dementia -delirium precautions -Neuro consulted Full code DVT: HSq Subjective Date patient seen: Oct 07, 2018 Allergies: Coded Allergies: NO KNOWN DRUG ALLERGIES (Unverified Allergy, Unknown, 04/11/14) Subjective NO acute overnight events, pt with no complaints, creatinine improved. Pending culture sensitivities, once back can adjust ABX and dc to SNF Objective Last 24 Hour Vital Signs Date Time Temp Pulse Resp B/P (MAP) Pulse Ox O2 Delivery O2 Flow Rate FiO2 10/07/18 16:00 78 10/07/18 16:00 98.6 73 18 141/81 (101) 99 10/07/18 13:27 159/76 10/07/18 12:00 74 10/07/18 10:29 140/70 10/07/18 10:29 79 140/70 10/07/18 10:28 79 140/70 (93) 10/07/18 09:00 79 140/70 10/07/18 08:36 Room Air 10/07/18 08:00 65 10/07/18 05:15 139/71 10/07/18 04:00 64 10/07/18 04:00 98.2 72 18 139/71 (93) 98 10/07/18 00:00 74 10/07/18 00:00 98.0 69 20 141/67 (91) 99 10/06/18 21:06 149/67 10/06/18 21:00 Room Air 10/06/18 20:59 67 149/67 10/06/18 20:00 98.2 67 20 149/67 (94) 100 10/06/18 20:00 69 Intake and Output 10/06/18 10/07/18 19:00 07:00 Intake Total 600 ml 260 ml Output Total 600 ml 400 ml Balance 0 ml -140 ml Intake Oral 600 ml 260 ml Output Urine Total 600 ml 400 ml # Bowel Movements 1 Laboratory Tests 10/07/18 05:00: White Blood Count 8.1, Red Blood Count 3.90L, Hemoglobin 10.4L, Hematocrit 34.2L , Mean Corpuscular Volume 88, Mean Corpuscular Hemoglobin 26.5L, Mean Corpuscular Hemoglobin Concent 30.3L, Red Cell Distribution Width 17.0H, Platelet Count 409, Mean Platelet Volume 4.8L, Neutrophils (%) (Auto) 70.4, Lymphocytes (%) (Auto) 13.9L, Monocytes (%) (Auto) 9.9, Eosinophils (%) (Auto) 3.7H, Basophils (%) (Auto) 2.0, Sodium Level 128L, Potassium Level 4.5, Chloride Level 99, Carbon Dioxide Level 13L, Anion Gap 16H, Blood Urea Nitrogen 74H, Creatinine 3.4H, Estimat Glomerular Filtration Rate , Glucose Level 132H, Calcium Level 8.0L Height (Feet): 5 Height (Inches): 7.00 Weight (Pounds): 143 Objective General Appearance: WD/WN, no apparent distress Lines, tubes and drains: peripheral HEENT: normocephalic, atraumatic Neck: non-tender, normal alignment Respiratory/Chest: chest wall non-tender, lungs clear, normal breath sounds, no respiratory distress Cardiovascular/Chest: normal peripheral pulses, normal rate, regular rhythm Abdomen: normal bowel sounds, non tender Extremities: normal range of motion Skin Exam: normal pigmentation Neurologic: practice professional II-XII grossly normal Giselle Whitlock MD Oct 07, 2018 17:44
--- NOTE | 2018-10-07 18:56 | NUR ---
HAND-OFF: Report given to Fernando Conrad RN.
--- NOTE | 2018-10-07 19:01 | Consultation ---
Consult Note Consult Note Asked to evaluate at the request of Dr Medina for renal failure, on behalf of Dr Carol Ann Molina patient known to me from his last admission patient admitted with Gi Sx and UTI Has a supra pubic catheter ER note; This patient presents from a detention facility. He himself has no specific complaints. Apparently, he has had diarrhea for the past few weeks and over the past day he has had several episodes of nausea and vomiting. The patient states he is a little nauseated. He denies chest pain or shortness of breath. He denies abdominal pain. He denies fever or chills. He has no other complaints. NO KNOWN DRUG ALLERGIES (Unverified Allergy, Unknown, 04/11/14) Patient interviewed confused examined data reviewed . Assessment/Plan UTI (urinary tract infection) HypoNatremia , Na down to 128 today Renal failure (ARF), acute on chronic / serum Cr upon last discharge was 3.5- today is 3.4 almost unchanged Prostate hypertrophy / Supra pubic cath Bilateral hydronephrosis Urethral stricture Cardiomyopathy ej Fx 45% Hypertensive kidney disease Anemia HypoAlbuminemia Plan: Adjust BP meds and Epogen doses 3% Saline 250 cc once monitor lytes and renal parameters per orders Sukhdeep Rodriguez MD Oct 07, 2018 19:00
--- NOTE | 2018-10-07 19:05 | NUR ---
NURSE NOTES:WOUND CARE NOTES: PT presented on admission with non-blanchable erythema extending from sacrum to L cleft of buttocks. Base of wound without fluctuance or induration. Periwound clean and pink. Erythema noted to base of scrotum. Both heels are dry and blanchable.Pt denied tenderness when both heels palpated.Numerous scratch serra noted to R and L thighs and L tibial area. Tx.Plan:Apply Moisture Barrier paste to sacrum. Cover with Optifoam drsg. Change every 3 days and prn. Apply Moisture Barrier Paste to scrotum and buttocks with each incontinence care. Apply Cavilon Skin BArrier to each heel. Cover each heel with Optifoam drsg. Change every 7 days and prn.
--- NOTE | 2018-10-07 19:15 | NUR ---
NURSE NOTES: Received patient from Gely VIRGEN. Patient in bed, on room air, no s/s respiratory distress. PIV20 gauge on RAC patent, no signs of infection or infiltration, NS infusing at 50ml/hr. Suprapubic catheter intact, patent, yellow output. Patient is resistant to any kind of care and yells at staff during care. Addendum: 10/07/18 at 1950 by Edmond Conrad RN Bed in low position, locked, bed alarm on, call light within reach.
[2018-10-07 20:02] VITALS: BP 138/55
[2018-10-07] MEDS: Carvedilol 25mg Tab ORAL SCH (20:15)
[2018-10-07] MEDS: Epoetin Alfa-EPBX (NON ESRD)4000 units/ml vial SUBQ SCH (20:16)
[2018-10-08] VITALS: BP 117/56
--- NOTE | 2018-10-08 00:15 | Progress Note ---
DATE: 10/07/2018 SUBJECTIVE: The patient was severely agitated in the middle of the night. The patient has been having anxiety, agitation, and not following ____. He received p.r.n. medication. MENTAL STATUS EXAMINATION: The patient is alert and oriented to times self and place. Mood is neutral during the evaluation, however, he has episodes of agitation. ASSESSMENT: Dementia with behavior disturbance. PLAN: 1. We will continue current medications. Start the patient on Ativan as needed. 2. We will continue to follow and readjust the medications. Paulina Krishnan M.D. DR: DESHAWN JOB#: [id number] CC:
[2018-10-08 04:00] VITALS: BP 147/62
--- NOTE | 2018-10-08 04:35 | NUR ---
NURSE NOTES: NS 3% 250ml IV x 1 completed.
[2018-10-08] MEDS: HydrALAZINE 50mg tab ORAL SCH ×3 (05:39→22:57)
--- NOTE | 2018-10-08 07:15 | NUR ---
HAND-OFF: Report given to Ann-Marie VIRGEN.
[2018-10-08 07:32] LABS: HEMATOCRIT 33.4 % (42.0-52.0); HEMOGLOBIN 10.2 G/DL (14.2-18.0); LYMPHOCYTES % (AUTO) 11.7 % (20.0-45.0); MEAN CORPUSCULAR VOLUME 88 FL (80-99); MONOCYTES % (AUTO) 15.2 % (1.0-10.0); NEUTROPHILS % (AUTO) 69.1 % (45.0-75.0); PLATELET COUNT 385 K/UL (150-450); RED BLOOD COUNT 3.79 M/UL (4.70-6.10); RED CELL DISTRIBUTION WIDTH 16.4 % (11.6-14.8); WHITE BLOOD COUNT 7.3 K/UL (4.8-10.8)
--- NOTE | 2018-10-08 07:39 | NUR ---
NURSE NOTES: Received report from Edmond/RN, Patient awake and alert x2, No sign of distress/SOB noted. Bed in low position and locked. Call light within reach. Will continue plan of care.
[2018-10-08 08:00] VITALS: BP 133/62
[2018-10-08 08:02] LABS: CREATINE KINASE 44 U/L (26-308)
[2018-10-08] MEDS: Citalopram Hydrobromide 10mg Tab ORAL SCH (08:25)
[2018-10-08] MEDS: Phenytoin 100mg cap ORAL SCH ×3 (08:25→17:55)
[2018-10-08] MEDS: Carvedilol 25mg Tab ORAL SCH ×2 (08:25→20:34)
[2018-10-08] MEDS: Imdur 30mg tab ORAL SCH (08:25)
[2018-10-08] MEDS: Aspirin Baby 81mg ORAL SCH (08:26)
[2018-10-08] MEDS: Benztropine 1mg tab ORAL SCH ×2 (08:26→17:55)
[2018-10-08] MEDS: Levodopa/Carbidopa 25/100 tab ORAL SCH ×3 (08:26→17:55)
[2018-10-08] MEDS: Docusate 100mg cap ORAL SCH ×3 (08:26→17:55)
[2018-10-08] MEDS: Donepezil 10mg tab ORAL SCH (08:26)
[2018-10-08] MEDS: Nephrovite tab (Rena-Vite) ORAL SCH (08:26)
[2018-10-08] MEDS: Heparin 5000 units/ml inj SUBQ SCH ×2 (08:28→20:37)
[2018-10-08 08:51] LABS: % IRON SATURATION 6 % (15-50); IRON 16 ug/dL (50-175); TOTAL IRON BINDING CAPACITY 263 ug/dL (250-450)
[2018-10-08 09:10] LABS: ALANINE AMINOTRANSFERASE < 6 U/L (12-78); ALBUMIN 2.7 G/DL (3.4-5.0); ALBUMIN/GLOBULIN RATIO 0.7 (1.0-2.7); ALKALINE PHOSPHATASE 174 U/L (46-116); ANION GAP 20 mmol/L (5-15); ASPARTATE AMINO TRANSFERASE 26 U/L (15-37); BILIRUBIN,TOTAL 0.2 MG/DL (0.2-1.0); BLOOD UREA NITROGEN 78 mg/dL (7-18); CALCIUM 7.8 MG/DL (8.5-10.1); CARBON DIOXIDE 11 MMOL/L (21-32); CHLORIDE 102 MMOL/L (98-107); CHOLESTEROL 138 MG/DL (< 200); CREATININE 3.5 MG/DL (0.55-1.30); FERRITIN 16 NG/ML (8-388); GAMMA GLUTAMYL TRANSPEPTIDASE 236 U/L (5-85); HDL CHOLESTEROL 58 MG/DL (40-60); PHOSPHORUS 6.6 MG/DL (2.5-4.9); POTASSIUM 4.7 MMOL/L (3.5-5.1); SODIUM 133 MMOL/L (136-145); TRIGLYCERIDES 204 MG/DL (30-150)
[2018-10-08 12:00] VITALS: BP 135/64
[2018-10-08] MEDS: Meropenem 500mg/NS 55ml IVPB SCH ×4 (13:23→23:00)
--- NOTE | 2018-10-08 13:33 | General Progress Note ---
Assessment/Plan Status: doing well, stable Assessment/Plan: Assessment/Plan Status: stable Assessment/Plan: 73 year old male with PMH of seizure d/o, urethral stricture s/p suprapubic catheter, CKD was transferred from [facility] for diarrhea and vomiting for past few days admitted for UTI #UTI in pt with suprabupic catheter #Urethral strictures s/p suprapubic catheter -abx changed to Cefepime (SNF resident) - cont until sensitivities return -monitor urinary output -f/u cultures -ID consult appreciated #SEVEN on CKD - improved -likely prerenal 2/2 dehydration 2/2 diarrhea and vomiting -CTM -avoid nephrotoxic medications -gentle hydration -nephrology consulted - Dr. Sanchez (also PCP) - Dr. Rodriguez covering and notes reviewed. - Baseline creatinine last discharge 2.5 #Hx of cardiomyopathy -cardiology consult appreciated -echo reviewed #DM -ISS -DM diet -FSG QAC and HS #Seizures -cont home meds -seizure precautions #Dementia -delirium precautions -Neuro consulted # Disposition Resident at [facility] PT mobility protocol and assessment requested Patient reports being ambulatory prior to admission Full code DVT: HSq Subjective ROS Limited/Unobtainable: Yes Constitutional: Reports: no symptoms HEENT: Reports: no symptoms Cardiovascular: Reports: no symptoms Respiratory: Reports: no symptoms Genitourinary: Reports: no symptoms Allergies: Coded Allergies: NO KNOWN DRUG ALLERGIES (Unverified Allergy, Unknown, 04/11/14) Objective Last 24 Hour Vital Signs Date Time Temp Pulse Resp B/P (MAP) Pulse Ox O2 Delivery O2 Flow Rate FiO2 10/08/18 13:08 135/64 10/08/18 12:00 96 10/08/18 12:00 97.8 98 20 135/64 (87) 99 10/08/18 09:00 Room Air 10/08/18 08:27 105 133/62 10/08/18 08:25 105 133/62 10/08/18 08:25 133/62 10/08/18 08:00 97.5 105 20 133/62 (85) 99 10/08/18 08:00 99 10/08/18 05:39 147/62 10/08/18 04:00 93 10/08/18 04:00 98.0 96 20 147/62 (90) 98 10/08/18 00:00 98.0 82 20 117/56 (76) 98 10/08/18 00:00 90 10/07/18 22:14 133/61 10/07/18 21:00 Room Air 10/07/18 20:15 86 138/55 10/07/18 20:02 98.4 86 20 138/55 (82) 96 10/07/18 20:00 81 10/07/18 16:00 78 10/07/18 16:00 98.6 73 18 141/81 (101) 99 Intake and Output 10/07/18 10/08/18 18:59 06:59 Intake Total 240 ml 362.5 ml Output Total 150 ml 1050 ml Balance 90 ml -687.5 ml Intake Oral 240 ml IV Total 362.5 ml Output Urine Total 150 ml 1050 ml Laboratory Tests 10/08/18 06:56: White Blood Count 7.3, Red Blood Count 3.79L, Hemoglobin 10.2L, Hematocrit 33.4L , Mean Corpuscular Volume 88, Mean Corpuscular Hemoglobin 27.0, Mean Corpuscular Hemoglobin Concent 30.7L, Red Cell Distribution Width 16.4H, Platelet Count 385, Mean Platelet Volume 5.0L, Neutrophils (%) (Auto) 69.1, Lymphocytes (%) (Auto) 11.7L, Monocytes (%) (Auto) 15.2H, Eosinophils (%) (Auto ) 2.0, Basophils (%) (Auto) 2.0, Sodium Level 133L, Potassium Level 4.7, Chloride Level 102, Carbon Dioxide Level 11L, Anion Gap 20H, Blood Urea Nitrogen 78H, Creatinine 3.5H, Estimat Glomerular Filtration Rate , Glucose Level 131H, Hemoglobin A1c 6.1H, Osmolality 310, Uric Acid 7.0, Calcium Level 7.8L, Phosphorus Level 6.6H, Magnesium Level 2.0, Iron Level 16L, Total Iron Binding Capacity 263, Percent Iron Saturation 6L, Unsaturated Iron Binding 247, Ferritin 16, Total Bilirubin 0.2, Gamma Glutamyl Transpeptidase 236H, Aspartate Amino Transf (AST/SGOT) 26, Alanine Aminotransferase (ALT/SGPT) < 6L, Alkaline Phosphatase 174H, Total Creatine Kinase 44, Troponin I 0.009, C-Reactive Protein , Quantitative 0.8, Pro-B-Type Natriuretic Peptide > 50041J, Total Protein 6.6, Albumin 2.7L, Globulin 3.9, Albumin/Globulin Ratio 0.7L, Triglycerides Level 204H, Cholesterol Level 138, LDL Cholesterol 47, HDL Cholesterol 58, Cholesterol /HDL Ratio 2.4L, Vitamin B12 Level 1271H, Folate 24.1, Thyroid Stimulating Hormone (TSH) 3.819H Height (Feet): 5 Height (Inches): 7.00 Weight (Pounds): 143 General Appearance: WD/WN, no apparent distress EENT: PERRL/EOMI Cardiovascular: normal rate, regular rhythm Respiratory/Chest: lungs clear, normal breath sounds Abdomen: normal bowel sounds Extremities: normal range of motion Edema: trace edema Laith Francis MD Oct 08, 2018 13:33
--- NOTE | 2018-10-08 15:42 | NUR ---
PT note PT souleymane completed, treatment initiated. Patient required constant verbal cues and redirection to task. He gets easily agitated during tx. Patient can benefit from PT services to increase his muscle strength, ROM and balance to improve his functional mobility. Addendum: 10/08/18 at 1543 by DONTA HINTON PT Amended: Links added.
[2018-10-08 16:00] VITALS: BP 147/67
--- NOTE | 2018-10-08 17:43 | Infectious Diseases Prog Note ---
Assessment/Plan Assessment/Plan 1. complicated esbl e.coli uti, confusional state - meropenem started - day # 1, plan on 10 day tx course - monitor labs 2. The patient has acute kidney and elevated creatinine. 3. Anemia. 4. Hyponatremia. 5. Parkinson's. 6. Dementia. 7. Suprapubic catheter. 8. Urethral stricture. 9. BPH. 10. Urinary retention. 11. Hypertension. 12. Diabetes. 13. Blood sugar and blood pressure treatment per primary. 14. COPD. 15. Seizures and epilepsy. 16. No known drug allergies. 17. Social history negative. 18. Family history noncontributory. 19. MAR is noted. 20. Case discussed with RN. 21. Continue treatment with primary consultants. 22. Skin care protocol. 23. Notes were noted. Orders were entered. 24. vre colonization and isolation Subjective Constitutional: Reports: fatigue; Denies: fever HEENT: Denies: congestion Respiratory: Denies: shortness of breath Cardiovascular: Denies: chest pain Gastrointestinal/Abdominal: Denies: nausea, vomiting, diarrhea Genitourinary: Reports: other - + weathers Neurologic: Denies: headache Psychiatric: Denies: depression Skin: Denies: rash Hematologic: Denies: bleeding Musculoskeletal: Denies: pain Allergies: Coded Allergies: NO KNOWN DRUG ALLERGIES (Unverified Allergy, Unknown, 04/11/14) Objective Vital Signs Last 24 Hour Vital Signs Date Time Temp Pulse Resp B/P (MAP) Pulse Ox O2 Delivery O2 Flow Rate FiO2 10/08/18 16:00 90 10/08/18 16:00 97.2 93 20 147/67 (93) 98 10/08/18 13:08 135/64 10/08/18 12:00 96 10/08/18 12:00 97.8 98 20 135/64 (87) 99 10/08/18 09:00 Room Air 10/08/18 08:27 105 133/62 10/08/18 08:25 105 133/62 10/08/18 08:25 133/62 10/08/18 08:00 97.5 105 20 133/62 (85) 99 10/08/18 08:00 99 10/08/18 05:39 147/62 10/08/18 04:00 93 10/08/18 04:00 98.0 96 20 147/62 (90) 98 7/6/19 00:00 98.0 82 20 117/56 (76) 98 10/08/18 00:00 90 10/07/18 22:14 133/61 10/07/18 21:00 Room Air 10/07/18 20:15 86 138/55 10/07/18 20:02 98.4 86 20 138/55 (82) 96 10/07/18 20:00 81 Height (Feet): 5 Height (Inches): 7.00 Weight (Pounds): 143 General Appearance: no acute distress HEENT: normocephalic, atraumatic, anicteric, mucous membranes moist Respiratory/Chest: lungs clear, normal breath sounds, no respiratory distress, no accessory muscle use Cardiovascular: normal rate, regular rhythm, no gallop/murmur, no JVD Abdomen: normal bowel sounds, soft, non tender, no organomegaly, non distended Genitourinary: other - + weathers - urine cloudy Extremities: no cyanosis Skin: no rash Neurologic/Psychiatric: mold carrier II-XII grossly normal, alert, responsive Lymphatic: no neck adenopathy Musculoskeletal: no effusion Objective CT abdomen and pelvis: IMPRESSION: Chronic cystitis/ureteritis signs of chronic inflammation/infection. Mild hydronephrosis. Correlate for concurrent or active UTI. Suprapubic catheter in good position. Chronic calcific pancreatitis IVC filter Reticular densities at the right lung base nonspecific, acuity indeterminant. Atherosclerotic disease L5 spondylolysis. L5 on S1 spondylolisthesis. Normal appendix Mild diverticulosis of the colon. No definite diverticulitis. Small bilateral inguinal hernias containing fat. Chest x-ray - nad, report noted Microbiology Date/Time Source Procedure Growth Status 10/05/18 12:30 Blood Blood Culture - Preliminary NO GROWTH AFTER 48 HOURS Resulted 10/05/18 15:15 Nasal Nares MRSA Culture - Final NO METHICILLIN RESISTANT STAPH AUREUS... Complete 10/05/18 12:15 Urine,Clean Catch Urine Culture - Final Escherichia Coli - Esbl Complete 10/05/18 15:15 Rectum VRE Culture - Final Enterococcus Faecalis - Vre Complete 10/05/18 15:15 Rectum - Final NO CARBAPENEM-RESISTANT ENTEROBACTERI... Complete Laboratory Tests Test 10/08/18 06:56 White Blood Count 7.3 K/UL (4.8-10.8) Red Blood Count 3.79 M/UL (4.70-6.10) L Hemoglobin 10.2 G/DL (14.2-18.0) L Hematocrit 33.4 % (42.0-52.0) L Mean Corpuscular Volume 88 FL (80-99) Mean Corpuscular Hemoglobin 27.0 PG (27.0-31.0) Mean Corpuscular Hemoglobin Concent 30.7 G/DL (32.0-36.0) L Red Cell Distribution Width 16.4 % (11.6-14.8) H Platelet Count 385 K/UL (150-450) Mean Platelet Volume 5.0 FL (6.5-10.1) L Neutrophils (%) (Auto) 69.1 % (45.0-75.0) Lymphocytes (%) (Auto) 11.7 % (20.0-45.0) L Monocytes (%) (Auto) 15.2 % (1.0-10.0) H Eosinophils (%) (Auto) 2.0 % (0.0-3.0) Basophils (%) (Auto) 2.0 % (0.0-2.0) Sodium Level 133 MMOL/L (136-145) L Potassium Level 4.7 MMOL/L (3.5-5.1) Chloride Level 102 MMOL/L (98-107) Carbon Dioxide Level 11 MMOL/L (21-32) L Anion Gap 20 mmol/L (5-15) H Blood Urea Nitrogen 78 mg/dL (7-18) H Creatinine 3.5 MG/DL (0.55-1.30) H Estimat Glomerular Filtration Rate mL/min (>60) Glucose Level 131 MG/DL (74-106) H Hemoglobin A1c 6.1 % (4.3-6.0) H Osmolality 310 mOsm/kg (297-317) Uric Acid 7.0 MG/DL (2.6-7.2) Calcium Level 7.8 MG/DL (8.5-10.1) L Phosphorus Level 6.6 MG/DL (2.5-4.9) H Magnesium Level 2.0 MG/DL (1.8-2.4) Iron Level 16 ug/dL (50-175) L Total Iron Binding Capacity 263 ug/dL (250-450) Percent Iron Saturation 6 % (15-50) L Unsaturated Iron Binding 247 ug/dL (112-346) Ferritin 16 NG/ML (8-388) Total Bilirubin 0.2 MG/DL (0.2-1.0) Gamma Glutamyl Transpeptidase 236 U/L (5-85) H Aspartate Amino Transf (AST/SGOT) 26 U/L (15-37) Alanine Aminotransferase (ALT/SGPT) < 6 U/L (12-78) L Alkaline Phosphatase 174 U/L (46-116) H Total Creatine Kinase 44 U/L (26-308) Troponin I 0.009 ng/mL (0.000-0.056) C-Reactive Protein, Quantitative 0.8 mg/dL (0.00-0.90) Pro-B-Type Natriuretic Peptide > 66148 pg/mL (0-125) H Total Protein 6.6 G/DL (6.4-8.2) Albumin 2.7 G/DL (3.4-5.0) L Globulin 3.9 g/dL Albumin/Globulin Ratio 0.7 (1.0-2.7) L Triglycerides Level 204 MG/DL (30-150) H Cholesterol Level 138 MG/DL (< 200) LDL Cholesterol 47 mg/dL (<100) HDL Cholesterol 58 MG/DL (40-60) Cholesterol/HDL Ratio 2.4 (3.3-4.4) L Vitamin B12 Level 1271 PG/ML (193-986) H Folate 24.1 NG/ML (8.6-58.9) Thyroid Stimulating Hormone (TSH) 3.819 uiU/mL (0.358-3.740) Current Medications Medications (Trade) Dose Ordered Sig/Thu Route PRN Reason Start Time Stop Time Status Last Admin Dose Admin Acetaminophen (Tylenol) 650 mg Q6H PRN ORAL Mild Pain/Temp > 100.5 10/05/18 17:45 11/04/18 17:44 Amlodipine Besylate (Norvasc) 10 mg DAILY ORAL 10/08/18 09:00 11/05/18 08:59 10/08/18 08:27 Aspirin (ASA) 81 mg DAILY ORAL 10/06/18 09:00 11/05/18 08:59 10/08/18 08:26 Benztropine Mesylate (Cogentin) 1 mg BID ORAL 10/05/18 18:00 8/2/19 17:59 10/08/18 08:26 Carbidopa/Levodopa (Sinemet 25/100) 1 tab THREE TIMES A DAY ORAL 10/05/18 18:00 11/04/18 17:59 10/08/18 13:08 Carvedilol (Coreg) 25 mg EVERY 12 HOURS ORAL 10/07/18 21:00 11/06/18 20:59 10/08/18 08:25 Citalopram Hydrobromide (celeXA) 20 mg DAILY ORAL 10/06/18 09:00 11/05/18 08:59 10/08/18 08:25 Docusate Sodium (Colace) 100 mg TID ORAL 10/08/18 09:00 11/05/18 08:59 10/08/18 13:08 Donepezil HCl (Aricept) 10 mg DAILY ORAL 10/06/18 09:00 11/05/18 08:59 10/08/18 08:26 Epoetin Zaid (Epoetin Zaid-EPBX(NON ESRD)) 4,000 unit WED-WED-WED SUBQ 10/07/18 21:00 11/04/18 20:59 10/07/18 20:16 Heparin Sodium (Porcine) (Heparin 5000 units/ml) 5,000 units EVERY 12 HOURS SUBQ 10/05/18 21:00 11/04/18 20:59 10/08/18 08:28 Hydralazine HCl (Apresoline) 100 mg Q8HR ORAL 10/07/18 22:00 11/04/18 21:59 10/08/18 13:08 Isosorbide Mononitrate (Imdur) 60 mg DAILY ORAL 10/06/18 09:00 11/05/18 08:59 10/08/18 08:25 Lorazepam (Ativan) 1 mg Q6H PRN ORAL For Anxiety 10/07/18 09:15 10/14/18 09:14 10/07/18 22:14 Meropenem 500 mg/ Sodium Chloride 55 ml @ 110 mls/hr Q12H IVPB 10/08/18 12:00 10/13/18 11:59 10/08/18 13:23 Ondansetron HCl (Zofran) 4 mg Q6H PRN IVP Nausea & Vomiting 10/07/18 13:15 11/06/18 13:14 Oxycodone/ Acetaminophen (Percocet 5-325) 1 tab Q6H PRN ORAL Severe Pain (Pain Scale 7-10) 10/05/18 17:45 10/12/18 17:44 Phenytoin (Dilantin) 100 mg THREE TIMES A DAY ORAL 10/05/18 18:00 11/04/18 17:59 10/08/18 13:08 Pravastatin Sodium (Pravachol) 20 mg BEDTIME ORAL 10/07/18 21:00 11/04/18 20:59 10/07/18 20:15 Vitamin B Complex/ Vit C/Folic Acid (Nephrovite) 1 tab DAILY ORAL 10/06/18 09:00 11/05/18 08:59 10/08/18 08:26 Catina Hooper MD Oct 08, 2018 17:43
--- NOTE | 2018-10-08 18:32 | Nephrology Progress Note ---
Assessment/Plan Problem List: (1) Renal failure (ARF), acute on chronic (2) Cardiomyopathy (3) Hypertensive kidney disease (4) Anemia (5) Hyponatremia Assessment UTI (urinary tract infection) HypoNatremia , Na down to 128 today Renal failure (ARF), acute on chronic / serum Cr upon last discharge was 3.5- today is 3.4 almost unchanged Prostate hypertrophy / Supra pubic cath Bilateral hydronephrosis Urethral stricture Cardiomyopathy ej Fx 45% Hypertensive kidney disease Anemia HypoAlbuminemia Plan Plan: Adjust BP meds and Epogen doses 3% Saline 250 cc once monitor lytes and renal parameters PO Bicitra renal diet Phos binders IV venofer per orders Objective Objective Last 24 Hour Vital Signs Date Time Temp Pulse Resp B/P (MAP) Pulse Ox O2 Delivery O2 Flow Rate FiO2 10/08/18 16:00 90 10/08/18 16:00 97.2 93 20 147/67 (93) 98 10/08/18 13:08 135/64 10/08/18 12:00 96 10/08/18 12:00 97.8 98 20 135/64 (87) 99 10/08/18 09:00 Room Air 10/08/18 08:27 105 133/62 10/08/18 08:25 105 133/62 10/08/18 08:25 133/62 10/08/18 08:00 97.5 105 20 133/62 (85) 99 10/08/18 08:00 99 10/08/18 05:39 147/62 10/08/18 04:00 93 10/08/18 04:00 98.0 96 20 147/62 (90) 98 10/08/18 00:00 98.0 82 20 117/56 (76) 98 10/08/18 00:00 90 10/07/18 22:14 133/61 10/07/18 21:00 Room Air 10/07/18 20:15 86 138/55 10/07/18 20:02 98.4 86 20 138/55 (82) 96 10/07/18 20:00 81 Intake and Output 10/07/18 10/08/18 19:00 07:00 Intake Total 170 ml 312.5 ml Output Total 150 ml 1050 ml Balance 20 ml -737.5 ml Intake Oral 120 ml IV Total 50 ml 312.5 ml Output Urine Total 150 ml 1050 ml Laboratory Tests 10/08/18 06:56: White Blood Count 7.3, Red Blood Count 3.79L, Hemoglobin 10.2L, Hematocrit 33.4L , Mean Corpuscular Volume 88, Mean Corpuscular Hemoglobin 27.0, Mean Corpuscular Hemoglobin Concent 30.7L, Red Cell Distribution Width 16.4H, Platelet Count 385, Mean Platelet Volume 5.0L, Neutrophils (%) (Auto) 69.1, Lymphocytes (%) (Auto) 11.7L, Monocytes (%) (Auto) 15.2H, Eosinophils (%) (Auto ) 2.0, Basophils (%) (Auto) 2.0, Sodium Level 133L, Potassium Level 4.7, Chloride Level 102, Carbon Dioxide Level 11L, Anion Gap 20H, Blood Urea Nitrogen 78H, Creatinine 3.5H, Estimat Glomerular Filtration Rate , Glucose Level 131H, Hemoglobin A1c 6.1H, Osmolality 310, Uric Acid 7.0, Calcium Level 7.8L, Phosphorus Level 6.6H, Magnesium Level 2.0, Iron Level 16L, Total Iron Binding Capacity 263, Percent Iron Saturation 6L, Unsaturated Iron Binding 247, Ferritin 16, Total Bilirubin 0.2, Gamma Glutamyl Transpeptidase 236H, Aspartate Amino Transf (AST/SGOT) 26, Alanine Aminotransferase (ALT/SGPT) < 6L, Alkaline Phosphatase 174H, Total Creatine Kinase 44, Troponin I 0.009, C-Reactive Protein , Quantitative 0.8, Pro-B-Type Natriuretic Peptide > 43446Q, Total Protein 6.6, Albumin 2.7L, Globulin 3.9, Albumin/Globulin Ratio 0.7L, Triglycerides Level 204H, Cholesterol Level 138, LDL Cholesterol 47, HDL Cholesterol 58, Cholesterol /HDL Ratio 2.4L, Vitamin B12 Level 1271H, Folate 24.1, Thyroid Stimulating Hormone (TSH) 3.819H Height (Feet): 5 Height (Inches): 7.00 Weight (Pounds): 143 Sukhdeep Rodriguez MD Oct 08, 2018 18:31
--- NOTE | 2018-10-08 19:15 | NUR ---
NURSE NOTES: Received patient from Ann-Marie RN. Patient awake, alert, oriented x2, in bed, on room air, no s/s respiratory distress. Bed in low position, locked, bed alarm on, call light within reach. PIV 20 gauge on RAC, no s/s infection or infiltration, saline locked.
--- NOTE | 2018-10-08 19:26 | NUR ---
HAND-OFF: Report given to Edmond/RN, Patient is in stable condition, Endorsed plan of care.
[2018-10-08 20:00] VITALS: BP 157/71
[2018-10-08] MEDS: Iron Sucrose 200 MG in NS 110 ML IV SCH (20:34)
--- NOTE | 2018-10-08 23:00 | NUR ---
NURSE NOTES: Patient vomited a small amount, zofran 4mg IVP administered.
[2018-10-08] MEDS: Sodium Citrate 30ml ORAL SCH (23:18)
[2018-10-09] VITALS: BP 150/72
[2018-10-09 04:00] VITALS: BP 136/66
[2018-10-09] MEDS: Sodium Citrate 30ml ORAL SCH ×4 (06:05→23:37)
[2018-10-09] MEDS: HydrALAZINE 50mg tab ORAL SCH ×3 (06:05→21:32)
--- NOTE | 2018-10-09 06:45 | Progress Note ---
DATE: 10/08/2018 SUBJECTIVE: The patient is calm, cooperative. Calmer today. Continued not to have any episodes of agitation today. MENTAL STATUS EXAMINATION: The patient is alert, oriented times self, place. Mood is neutral to anxious. Affect is constricted, congruent with mood. Thought process, there is a paucity of thought content. Thought content, no suicidal or homicidal ideation. Cognition is impaired. ASSESSMENT: Dementia with behavior disturbance. PLAN: 1. We will continue current medications. 2. Provide the patient with reality orientation and supportive therapy. Paulina Krishnan M.D. DR: [place] JOB#: [id number] CC:
--- NOTE | 2018-10-09 07:38 | NUR ---
HAND-OFF: Report given to Ann-Marie VIRGEN.
--- NOTE | 2018-10-09 07:40 | NUR ---
NURSE NOTES: Received report from Edmond/RN, Patient is awake, eating breakfast, No acute distress/SOB noted. IV site intact, asymptomatic, and patent. Bed is in the lowest position and locked. Call light and Belonging within reach. Will continue of plan of care.
[2018-10-09 08:00] VITALS: BP 137/64
[2018-10-09 08:12] LABS: EOSINOPHILS % (AUTO) 0.8 % (0.0-3.0); HEMOGLOBIN 10.8 G/DL (14.2-18.0); LYMPHOCYTES % (AUTO) 10.7 % (20.0-45.0); MEAN CORPUSCULAR VOLUME 89 FL (80-99); MONOCYTES % (AUTO) 10.7 % (1.0-10.0); NEUTROPHILS % (AUTO) 75.8 % (45.0-75.0); PLATELET COUNT 367 K/UL (150-450); RED BLOOD COUNT 4.05 M/UL (4.70-6.10); RED CELL DISTRIBUTION WIDTH 16.9 % (11.6-14.8); WHITE BLOOD COUNT 8.2 K/UL (4.8-10.8)
[2018-10-09] MEDS: Phenytoin 100mg cap ORAL SCH ×3 (08:39→17:16)
[2018-10-09] MEDS: Carvedilol 25mg Tab ORAL SCH ×2 (08:39→21:25)
[2018-10-09] MEDS: Docusate 100mg cap ORAL SCH ×3 (08:39→17:16)
[2018-10-09] MEDS: Aspirin Baby 81mg ORAL SCH (08:40)
[2018-10-09] MEDS: Nephrovite tab (Rena-Vite) ORAL SCH (08:40)
[2018-10-09] MEDS: Donepezil 10mg tab ORAL SCH (08:40)
[2018-10-09] MEDS: Levodopa/Carbidopa 25/100 tab ORAL SCH ×3 (08:40→17:17)
[2018-10-09] MEDS: Imdur 30mg tab ORAL SCH (08:40)
[2018-10-09] MEDS: Citalopram Hydrobromide 10mg Tab ORAL SCH (08:40)
[2018-10-09] MEDS: Benztropine 1mg tab ORAL SCH ×2 (08:41→17:17)
[2018-10-09] MEDS: Heparin 5000 units/ml inj SUBQ SCH ×2 (08:47→20:33)
[2018-10-09 08:51] LABS: ANION GAP 27 mmol/L (5-15); BLOOD UREA NITROGEN 77 mg/dL (7-18); CALCIUM 8.4 MG/DL (8.5-10.1); CHLORIDE 103 MMOL/L (98-107); CREATININE 3.7 MG/DL (0.55-1.30); POTASSIUM 4.6 MMOL/L (3.5-5.1); SODIUM 138 MMOL/L (136-145)
[2018-10-09 08:58] LABS: CARBON DIOXIDE 8 MMOL/L (21-32)
--- NOTE | 2018-10-09 09:49 | NUR ---
RESPIRATORY NOTES: ABG preformed while patient was hyperventilating due to pain and anxiety from needle. Hyperventilating effected ABG results. RN aware.
[2018-10-09] MEDS: Sodium Bicarbonate 100 ML in D5 1/2NS 1,000 ML IV SCH (10:40)
--- NOTE | 2018-10-09 10:52 | Nephrology Progress Note ---
Assessment/Plan Problem List: (1) Renal failure (ARF), acute on chronic (2) Cardiomyopathy (3) Hypertensive kidney disease (4) Anemia (5) Hyponatremia (6) Metabolic acidosis Assessment UTI (urinary tract infection) HypoNatremia , Na down to 128 today Renal failure (ARF), acute on chronic / serum Cr upon last discharge was 3.5- today is 3.4 almost unchanged Prostate hypertrophy / Supra pubic cath Bilateral hydronephrosis Urethral stricture Cardiomyopathy ej Fx 45% Hypertensive kidney disease Anemia HypoAlbuminemia Plan Plan: One dose Digoxin PO ABG Bicarb IV Adjust BP meds and Epogen doses monitor lytes and renal parameters PO Bicitra renal diet Phos binders IV venofer per orders Subjective ROS Limited/Unobtainable: No Constitutional: Reports: malaise Objective Objective Last 24 Hour Vital Signs Date Time Temp Pulse Resp B/P (MAP) Pulse Ox O2 Delivery O2 Flow Rate FiO2 10/09/18 09:00 Room Air 10/09/18 08:40 104 137/64 10/09/18 08:40 137/64 10/09/18 08:39 104 137/64 10/09/18 08:00 101 10/09/18 08:00 97.2 104 20 137/64 (88) 99 10/09/18 06:05 136/66 10/09/18 04:00 97.8 102 19 136/66 (89) 97 10/09/18 03:40 101 10/09/18 00:00 98.9 107 19 150/72 (98) 96 10/08/18 23:54 102 10/08/18 22:57 133/69 10/08/18 21:00 Room Air 10/08/18 20:34 97 157/71 10/08/18 20:00 98.3 97 19 157/71 (99) 97 10/08/18 19:34 96 10/08/18 16:00 90 10/08/18 16:00 97.2 93 20 147/67 (93) 98 10/08/18 13:08 135/64 10/08/18 12:00 96 10/08/18 12:00 97.8 98 20 135/64 (87) 99 Intake and Output 10/08/18 10/09/18 19:00 07:00 Intake Total 650 ml Output Total 300 ml 100 ml Balance 350 ml -100 ml Intake Oral 540 ml IV Total 110 ml Output Urine Total 300 ml 100 ml # Voids 1 Laboratory Tests 10/09/18 06:59: White Blood Count 8.2, Red Blood Count 4.05L, Hemoglobin 10.8L, Hematocrit 36.0L , Mean Corpuscular Volume 89, Mean Corpuscular Hemoglobin 26.6L, Mean Corpuscular Hemoglobin Concent 29.9L, Red Cell Distribution Width 16.9H, Platelet Count 367, Mean Platelet Volume 4.9L, Neutrophils (%) (Auto) 75.8H, Lymphocytes (%) (Auto) 10.7L, Monocytes (%) (Auto) 10.7H, Eosinophils (%) (Auto ) 0.8, Basophils (%) (Auto) 2.0, Sodium Level 138, Potassium Level 4.6, Chloride Level 103, Carbon Dioxide Level 8*L, Anion Gap 27H, Blood Urea Nitrogen 77H, Creatinine 3.7H, Estimat Glomerular Filtration Rate , Glucose Level 138H, Calcium Level 8.4L 10/09/18 09:30: Arterial Blood pH 7.271L, Arterial Blood Partial Pressure CO2 14.4*L, Arterial Blood Partial Pressure O2 186.4H, Arterial Blood HCO3 6.5*L, Arterial Blood Oxygen Saturation 98.9, Arterial Blood Base Excess -18.1*L, Kody Test Positive Height (Feet): 5 Height (Inches): 7.00 Weight (Pounds): 143 General Appearance: no apparent distress Cardiovascular: tachycardia Respiratory/Chest: decreased breath sounds Abdomen: distended Genitourinary/Rectal: other - supra pubic Sukhdeep Rodriguez MD Oct 09, 2018 10:52
[2018-10-09] MEDS: Meropenem 500mg/NS 55ml IVPB SCH ×4 (11:36→23:32)
--- NOTE | 2018-10-09 11:36 | Cardiology Progress Note ---
Assessment/Plan Status: stable Assessment/Plan Assessment/Plan: Assessment/Plan UTI in pt with suprapubic catheter Urethral strictures s/p suprapubic catheter SEVEN on CKD Hx of cardiomyopathy LVEF 45% DM Seizures Dementia -Echocardiogram reviewed LVEF 45% -Outpatient stress test, CT showed atherosclerotic disease, no chest pain currently -Statin -Aspirin -Continue norvasc -Hold ACEI/ARB given SEVEN -Hyponatremia resolved -Continue meropenem for UTI, adjust per ID -Dispo planning Subjective Cardiovascular: Reports: no symptoms Respiratory: Reports: no symptoms Gastrointestinal/Abdominal: Reports: no symptoms Genitourinary: Reports: no symptoms Subjective No acute events, patient refusing meds and vitals. Echo with LVEF 45%, on meropenem, no fevers, NA now normal 138 Objective Last 24 Hour Vital Signs Date Time Temp Pulse Resp B/P (MAP) Pulse Ox O2 Delivery O2 Flow Rate FiO2 10/09/18 11:11 98 10/09/18 09:00 Room Air 10/09/18 08:40 104 137/64 10/09/18 08:40 137/64 10/09/18 08:39 104 137/64 10/09/18 08:00 101 10/09/18 08:00 97.2 104 20 137/64 (88) 99 10/09/18 06:05 136/66 10/09/18 04:00 97.8 102 19 136/66 (89) 97 10/09/18 03:40 101 10/09/18 00:00 98.9 107 19 150/72 (98) 96 10/08/18 23:54 102 10/08/18 22:57 133/69 10/08/18 21:00 Room Air 10/08/18 20:34 97 157/71 10/08/18 20:00 98.3 97 19 157/71 (99) 97 10/08/18 19:34 96 10/08/18 16:00 90 10/08/18 16:00 97.2 93 20 147/67 (93) 98 10/08/18 13:08 135/64 10/08/18 12:00 96 10/08/18 12:00 97.8 98 20 135/64 (87) 99 General Appearance: no apparent distress, agitated EENT: PERRL/EOMI, normal ENT inspection, TMs normal, pharynx normal Neck: non-tender, normal alignment, supple, normal inspection, no JVD Rhythm: NSR Cardiovascular: normal peripheral pulses, normal rate, regular rhythm Respiratory/Chest: chest wall non-tender, lungs clear, normal breath sounds Abdomen: normal bowel sounds, non tender, soft, no organomegaly, no mass Extremities: normal range of motion, non-tender, normal inspection 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9 % (11.6-14.8) H Platelet Count 367 K/UL (150-450) Mean Platelet Volume 4.9 FL (6.5-10.1) L Neutrophils (%) (Auto) 75.8 % (45.0-75.0) H Lymphocytes (%) (Auto) 10.7 % (20.0-45.0) L Monocytes (%) (Auto) 10.7 % (1.0-10.0) H Eosinophils (%) (Auto) 0.8 % (0.0-3.0) Basophils (%) (Auto) 2.0 % (0.0-2.0) Sodium Level 138 MMOL/L (136-145) Potassium Level 4.6 MMOL/L (3.5-5.1) Chloride Level 103 MMOL/L (98-107) Carbon Dioxide Level 8 MMOL/L (21-32) *L Anion Gap 27 mmol/L (5-15) H Blood Urea Nitrogen 77 mg/dL (7-18) H Creatinine 3.7 MG/DL (0.55-1.30) H Estimat Glomerular Filtration Rate mL/min (>60) Glucose Level 138 MG/DL (74-106) H Calcium Level 8.4 MG/DL (8.5-10.1) L Phenytoin (Dilantin) Level 1.4 ug/mL (10-20) L Arterial Blood pH 7.271 (7.350-7.450) Arterial Blood Partial Pressure CO2 14.4 mmHg (35.0-45.0) *L Arterial Blood Partial Pressure O2 186.4 mmHg (75.0-100.0) H Arterial Blood HCO3 6.5 mmol/L (22.0-26.0) *L Arterial Blood Oxygen Saturation 98.9 % (95-100) Arterial Blood Base Excess -18.1 (-2-2) *L Kody Test Positive Eric Arce MD Oct 09, 2018 11:36
[2018-10-09 12:00] VITALS: BP 143/72
--- NOTE | 2018-10-09 13:58 | NUR ---
P.T Note: Attempted to see pt. however patient adamantly refused to participate despite encouragement. RN notified/aware.
[2018-10-09] MEDS ORDERED: Heparin1,000 units/500ml Premix(Conc:2 units/ml) IV PRN (14:30)
[2018-10-09] MEDS ORDERED: Lidocaine 1% Plain 30 ml INJ PRN (14:30)
--- NOTE | 2018-10-09 14:48 | General Progress Note ---
Assessment/Plan Status: stable Assessment/Plan: Assessment/Plan Status: stable Assessment/Plan: 73 year old male with PMH of seizure d/o, urethral stricture s/p suprapubic catheter, CKD was transferred from [facility] for diarrhea and vomiting for past few days admitted for UTI #UTI in pt with suprabupic catheter #Urethral strictures s/p suprapubic catheter -abx changed to Meropenem (SNF resident) - cont until sensitivities return -monitor urinary output -f/u cultures -ID consult appreciated #SEVEN on CKD - improved -likely prerenal 2/2 dehydration 2/2 diarrhea and vomiting -CTM -avoid nephrotoxic medications -gentle hydration -nephrology consulted - Dr. Sanchez (also PCP) - Dr. Rodriguez covering and notes reviewed. - Baseline creatinine last discharge 2.5 - Anion gap metabolic acidosis likely due to renal disease, discussed with Dr. Walker. Bicitra PO started and IV bicarbonate started but the patient lost his IV access today. PICC line ordered for AM. Currently, no shortness of breath , tachypnea noted. #Hx of cardiomyopathy -cardiology consult appreciated -echo reviewed #DM -ISS -DM diet -FSG QAC and HS #Seizures -cont home meds -seizure precautions #Dementia -delirium precautions -Neuro consulted # Disposition Resident at [facility] PT mobility protocol and assessment requested Patient reports being ambulatory prior to admission Full code DVT: HSq Subjective ROS Limited/Unobtainable: Yes Allergies: Coded Allergies: NO KNOWN DRUG ALLERGIES (Unverified Allergy, Unknown, 04/11/14) Objective Last 24 Hour Vital Signs Date Time Temp Pulse Resp B/P (MAP) Pulse Ox O2 Delivery O2 Flow Rate FiO2 10/09/18 13:05 143/72 10/09/18 12:00 97.3 106 20 143/72 (95) 98 10/09/18 12:00 98 10/09/18 11:11 98 10/09/18 09:00 Room Air 10/09/18 08:40 104 137/64 10/09/18 08:40 137/64 10/09/18 08:39 104 137/64 10/09/18 08:00 101 10/09/18 08:00 97.2 104 20 137/64 (88) 99 10/09/18 06:05 136/66 10/09/18 04:00 97.8 102 19 136/66 (89) 97 10/09/18 03:40 101 10/09/18 00:00 98.9 107 19 150/72 (98) 96 10/08/18 23:54 102 10/08/18 22:57 133/69 10/08/18 21:00 Room Air 10/08/18 20:34 97 157/71 10/08/18 20:00 98.3 97 19 157/71 (99) 97 10/08/18 19:34 96 10/08/18 16:00 90 10/08/18 16:00 97.2 93 20 147/67 (93) 98 Intake and Output 10/08/18 10/09/18 18:59 06:59 Intake Total 650 ml Output Total 300 ml 100 ml Balance 350 ml -100 ml Intake Oral 540 ml IV Total 110 ml Output Urine Total 300 ml 100 ml # Voids 1 Laboratory Tests 10/09/18 06:59: White Blood Count 8.2, Red Blood Count 4.05L, Hemoglobin 10.8L, Hematocrit 36.0L , Mean Corpuscular Volume 89, Mean Corpuscular Hemoglobin 26.6L, Mean Corpuscular Hemoglobin Concent 29.9L, Red Cell Distribution Width 16.9H, Platelet Count 367, Mean Platelet Volume 4.9L, Neutrophils (%) (Auto) 75.8H, Lymphocytes (%) (Auto) 10.7L, Monocytes (%) (Auto) 10.7H, Eosinophils (%) (Auto ) 0.8, Basophils (%) (Auto) 2.0, Sodium Level 138, Potassium Level 4.6, Chloride Level 103, Carbon Dioxide Level 8*L, Anion Gap 27H, Blood Urea Nitrogen 77H, Creatinine 3.7H, Estimat Glomerular Filtration Rate , Glucose Level 138H, Calcium Level 8.4L, Phenytoin (Dilantin) Level 1.4L 10/09/18 09:30: Arterial Blood pH 7.271L, Arterial Blood Partial Pressure CO2 14.4*L, Arterial Blood Partial Pressure O2 186.4H, Arterial Blood HCO3 6.5*L, Arterial Blood Oxygen Saturation 98.9, Arterial Blood Base Excess -18.1*L, Kody Test Positive Height (Feet): 5 Height (Inches): 7.00 Weight (Pounds): 143 General Appearance: WD/WN, no apparent distress EENT: PERRL/EOMI, normal ENT inspection Neck: non-tender, normal alignment Cardiovascular: normal peripheral pulses, normal rate Respiratory/Chest: lungs clear Abdomen: normal bowel sounds 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
[2018-10-09 16:00] VITALS: BP 142/66
--- NOTE | 2018-10-09 17:00 | NUR ---
NURSE NOTES: Patient pulled out his IV, and unable to get another IV access. Patient is a hard stick.
--- NOTE | 2018-10-09 19:40 | NUR ---
HAND-OFF: Report given to Messi/PARAM, Patient is in stable condition, Endorsed plan of care.
--- NOTE | 2018-10-09 19:41 | NUR ---
NURSE NOTES: Got report from Ann-Marie RN. Pt in stable condition. Denies any pain. No s/s of distress or discomfort noted. Pt resting in bed comfortably. Bed in low and locked position, call light within reach, bedside table within reach. Continue to monitor.
[2018-10-09 20:00] VITALS: BP 113/60
[2018-10-09] MEDS: Iron Sucrose 200 MG in NS 110 ML IV SCH (20:00)
[2018-10-09] MEDS: Dyna-Hex 2% Top Sol 2oz TOPIC SCH (20:38)
[2018-10-10 00:07] VITALS: BP 121/53
[2018-10-10 04:20] VITALS: BP 119/57
[2018-10-10] MEDS: HydrALAZINE 50mg tab ORAL SCH ×3 (05:30→21:21)
[2018-10-10] MEDS: Sodium Citrate 30ml ORAL SCH ×2 (05:30→17:55)
[2018-10-10 07:00] LABS: BASOPHILS % (AUTO) 1.6 % (0.0-2.0); EOSINOPHILS % (AUTO) 3.5 % (0.0-3.0); HEMATOCRIT 28.2 % (42.0-52.0); HEMOGLOBIN 8.7 G/DL (14.2-18.0); LYMPHOCYTES % (AUTO) 13.1 % (20.0-45.0); MEAN CORPUSCULAR VOLUME 86 FL (80-99); MONOCYTES % (AUTO) 17.1 % (1.0-10.0); NEUTROPHILS % (AUTO) 64.7 % (45.0-75.0); PLATELET COUNT 298 K/UL (150-450); RED BLOOD COUNT 3.27 M/UL (4.70-6.10); RED CELL DISTRIBUTION WIDTH 16.4 % (11.6-14.8)
--- NOTE | 2018-10-10 07:09 | NUR ---
HAND-OFF: Report given to Ann-Marie RN. Endorsed plan of care.
--- NOTE | 2018-10-10 07:10 | NUR ---
NURSE NOTES: Received report from Messi/RN, Patient is awake, lying semi-ware, No acute distress/SOB noted. Denies any pain, No IV access at this time. Bed is in the lowest position and locked. Call light and Belonging within reach. Will continue of plan of care.
[2018-10-10 07:15] LABS: ALANINE AMINOTRANSFERASE < 6 U/L (12-78); ALBUMIN 2.1 G/DL (3.4-5.0); ALBUMIN/GLOBULIN RATIO 0.5 (1.0-2.7); ALKALINE PHOSPHATASE 129 U/L (46-116); ANION GAP 19 mmol/L (5-15); ASPARTATE AMINO TRANSFERASE 16 U/L (15-37); BILIRUBIN,TOTAL 0.3 MG/DL (0.2-1.0); BLOOD UREA NITROGEN 76 mg/dL (7-18); CALCIUM 8.2 MG/DL (8.5-10.1); CARBON DIOXIDE 15 MMOL/L (21-32); CHLORIDE 108 MMOL/L (98-107); CREATININE 3.7 MG/DL (0.55-1.30); PHOSPHORUS 5.4 MG/DL (2.5-4.9); POTASSIUM 3.9 MMOL/L (3.5-5.1); SODIUM 142 MMOL/L (136-145)
[2018-10-10 08:00] VITALS: BP 110/51
--- NOTE | 2018-10-10 08:08 | NUR ---
NURSE NOTES: Called and talked with Giselle regarding to get in touch with Edwin Al, to get a consent for PICC line, Edwin Al is off today, she won't be in Until tomorrow. I wasn't able to get her personal number.
[2018-10-10] MEDS: Carvedilol 25mg Tab ORAL SCH ×2 (08:40→21:21)
[2018-10-10] MEDS: Citalopram Hydrobromide 10mg Tab ORAL SCH (08:41)
[2018-10-10] MEDS: Benztropine 1mg tab ORAL SCH ×2 (08:41→17:56)
[2018-10-10] MEDS: Levodopa/Carbidopa 25/100 tab ORAL SCH ×3 (08:41→17:56)
[2018-10-10] MEDS: Nephrovite tab (Rena-Vite) ORAL SCH (08:41)
[2018-10-10] MEDS: Imdur 30mg tab ORAL SCH (08:41)
[2018-10-10] MEDS: Phenytoin 100mg cap ORAL SCH ×3 (08:41→21:21)
[2018-10-10] MEDS: Donepezil 10mg tab ORAL SCH (08:41)
[2018-10-10] MEDS: Aspirin Baby 81mg ORAL SCH (08:41)
[2018-10-10] MEDS: Docusate 100mg cap ORAL SCH ×3 (08:42→17:56)
[2018-10-10] MEDS: Heparin 5000 units/ml inj SUBQ SCH ×2 (08:48→21:00)
[2018-10-10] MEDS: Sodium Bicarbonate 100 ML in D5 1/2NS 1,000 ML IV SCH (09:30)
--- NOTE | 2018-10-10 09:48 | NUR ---
NURSE NOTES: Sodium Bicarbonate was not administered because no IV access.
--- NOTE | 2018-10-10 10:49 | General Progress Note ---
Assessment/Plan Status: stable Assessment/Plan: 73 year old male with PMH of seizure d/o, urethral stricture s/p suprapubic catheter, CKD was transferred from [facility] for diarrhea and vomiting for past few days admitted for UTI #UTI in pt with suprabupic catheter #Urethral strictures s/p suprapubic catheter -abx changed to Meropenem (SNF resident) - cont until sensitivities return -monitor urinary output -f/u cultures -ID consult appreciated -PICC line in AM - if unable to get consent from family will need 2 MD consent #SEVEN on CKD - improved #Anion gap metabolic acidosis -likely prerenal 2/2 dehydration 2/2 diarrhea and vomiting -CTM -avoid nephrotoxic medications -gentle hydration -nephrology consulted - Dr. Sanchez (also PCP) - Dr. Rodriguez covering and notes reviewed. - Baseline creatinine last discharge 2.5 - Cont Bicitra PO, discussed with nephrology, will hold off on IV bicarbonate since acidemia improved #Hx of cardiomyopathy -cardiology consult appreciated -echo reviewed #DM -ISS -DM diet -FSG QAC and HS #Seizures -cont home meds -seizure precautions #Dementia -delirium precautions -Neuro consulted # Disposition Resident at [facility] PT mobility protocol and assessment requested Patient reports being ambulatory prior to admission Full code DVT: HSq Subjective Date patient seen: Oct 10, 2018 Allergies: Coded Allergies: NO KNOWN DRUG ALLERGIES (Unverified Allergy, Unknown, 04/11/14) Subjective NO acute overnight events, pt with no complaints, creatinine improved. Pending culture sensitivities, once back can adjust ABX and dc to SNF, picc placement pending, unable to be placed today, awaiting consent Objective Last 24 Hour Vital Signs Date Time Temp Pulse Resp B/P (MAP) Pulse Ox O2 Delivery O2 Flow Rate FiO2 10/10/18 09:00 Room Air 10/10/18 08:42 76 110/51 10/10/18 08:41 110/51 10/10/18 08:40 76 110/51 10/10/18 08:00 97.6 76 20 110/51 (70) 97 10/10/18 08:00 77 10/10/18 05:30 119/57 10/10/18 04:20 97.8 85 18 119/57 (77) 97 10/10/18 03:59 76 10/10/18 00:07 98.0 82 17 121/53 (75) 97 10/09/18 23:59 79 10/09/18 21:32 113/60 10/09/18 21:25 89 113/60 10/09/18 21:00 Room Air 10/09/18 20:00 89 10/09/18 20:00 97.9 89 17 113/60 (77) 97 10/09/18 16:00 97.6 83 20 142/66 (91) 96 10/09/18 16:00 86 10/09/18 13:05 143/72 10/09/18 12:00 97.3 106 20 143/72 (95) 98 10/09/18 12:00 98 10/09/18 11:11 98 Intake and Output 10/09/18 10/10/18 19:00 07:00 Intake Total 480 ml Output Total 550 ml 500 ml Balance -70 ml -500 ml Intake Oral 480 ml Output Urine Total 550 ml 500 ml # Voids 1 Laboratory Tests 10/10/18 06:00: White Blood Count 6.0, Red Blood Count 3.27L, Hemoglobin 8.7L, Hematocrit 28.2L , Mean Corpuscular Volume 86, Mean Corpuscular Hemoglobin 26.8L, Mean Corpuscular Hemoglobin Concent 31.1L, Red Cell Distribution Width 16.4H, Platelet Count 298, Mean Platelet Volume 5.1L, Neutrophils (%) (Auto) 64.7, Lymphocytes (%) (Auto) 13.1L, Monocytes (%) (Auto) 17.1H, Eosinophils (%) (Auto ) 3.5H, Basophils (%) (Auto) 1.6, Prothrombin Time 10.7, Prothromb Time International Ratio 1.0, Sodium Level 142, Potassium Level 3.9, Chloride Level 108H, Carbon Dioxide Level 15L, Anion Gap 19H, Blood Urea Nitrogen 76H, Creatinine 3.7H, Estimat Glomerular Filtration Rate , Glucose Level 138H, Uric Acid 7.1, Calcium Level 8.2L, Phosphorus Level 5.4H, Magnesium Level 1.9, Total Bilirubin 0.3, Aspartate Amino Transf (AST/SGOT) 16, Alanine Aminotransferase ( ALT/SGPT) < 6L, Alkaline Phosphatase 129H, C-Reactive Protein, Quantitative 1.5H , Pro-B-Type Natriuretic Peptide > 19955O, Total Protein 6.1L, Albumin 2.1L, Globulin 4.0, Albumin/Globulin Ratio 0.5L 10/10/18 09:00: Arterial Blood pH 7.365, Arterial Blood Partial Pressure CO2 26.6L, Arterial Blood Partial Pressure O2 50.2L, Arterial Blood HCO3 14.9*L, Arterial Blood Oxygen Saturation 83.8*L, Arterial Blood Base Excess -9.4*L, Kody Test Positive Height (Feet): 5 Height (Inches): 7.00 Weight (Pounds): 143 Objective General Appearance: WD/WN, no apparent distress Lines, tubes and drains: peripheral HEENT: normocephalic, atraumatic Neck: non-tender, normal alignment Respiratory/Chest: chest wall non-tender, lungs clear, normal breath sounds, no respiratory distress Cardiovascular/Chest: normal peripheral pulses, normal rate, regular rhythm Abdomen: normal bowel sounds, non tender Extremities: normal range of motion Skin Exam: normal pigmentation 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
[2018-10-10 12:00] VITALS: BP 100/50
[2018-10-10] MEDS: Meropenem 500mg/NS 55ml IVPB SCH ×2 (12:00)
--- NOTE | 2018-10-10 12:44 | Nephrology Progress Note ---
Assessment/Plan Problem List: (1) Renal failure (ARF), acute on chronic (2) Cardiomyopathy (3) Hypertensive kidney disease (4) Anemia (5) Hyponatremia (6) Metabolic acidosis Assessment UTI (urinary tract infection) HypoNatremia , Na down to 128 today Renal failure (ARF), acute on chronic / serum Cr upon last discharge was 3.5- today is 3.4 almost unchanged Prostate hypertrophy / Supra pubic cath Bilateral hydronephrosis Urethral stricture Cardiomyopathy ej Fx 45% Hypertensive kidney disease Anemia HypoAlbuminemia Plan Plan: One dose Digoxin PO 10/09 ABG improved- Bicarb IV never got it due to no access- will DC Adjust BP meds and Epogen doses monitor lytes and renal parameters increase PO Bicitra renal diet Phos binders IV venofer per orders Subjective ROS Limited/Unobtainable: No Interval Events/Complaints For Dr Daniel Maharaj coverage Constitutional: Reports: malaise Objective Objective Last 24 Hour Vital Signs Date Time Temp Pulse Resp B/P (MAP) Pulse Ox O2 Delivery O2 Flow Rate FiO2 10/10/18 12:00 97.2 75 18 100/50 (67) 96 10/10/18 09:00 Room Air 10/10/18 08:42 76 110/51 10/10/18 08:41 110/51 10/10/18 08:40 76 110/51 10/10/18 08:00 97.6 76 20 110/51 (70) 97 10/10/18 08:00 77 10/10/18 05:30 119/57 10/10/18 04:20 97.8 85 18 119/57 (77) 97 10/10/18 03:59 76 10/10/18 00:07 98.0 82 17 121/53 (75) 97 10/09/18 23:59 79 10/09/18 21:32 113/60 10/09/18 21:25 89 113/60 10/09/18 21:00 Room Air 10/09/18 20:00 89 10/09/18 20:00 97.9 89 17 113/60 (77) 97 10/09/18 16:00 97.6 83 20 142/66 (91) 96 10/09/18 16:00 86 10/09/18 13:05 143/72 Intake and Output 10/09/18 10/10/18 19:00 07:00 Intake Total 480 ml Output Total 550 ml 500 ml Balance -70 ml -500 ml Intake Oral 480 ml Output Urine Total 550 ml 500 ml # Voids 1 Laboratory Tests 10/10/18 06:00: White Blood Count 6.0, Red Blood Count 3.27L, Hemoglobin 8.7L, Hematocrit 28.2L , Mean Corpuscular Volume 86, Mean Corpuscular Hemoglobin 26.8L, Mean Corpuscular Hemoglobin Concent 31.1L, Red Cell Distribution Width 16.4H, Platelet Count 298, Mean Platelet Volume 5.1L, Neutrophils (%) (Auto) 64.7, Lymphocytes (%) (Auto) 13.1L, Monocytes (%) (Auto) 17.1H, Eosinophils (%) (Auto ) 3.5H, Basophils (%) (Auto) 1.6, Prothrombin Time 10.7, Prothromb Time International Ratio 1.0, Sodium Level 142, Potassium Level 3.9, Chloride Level 108H, Carbon Dioxide Level 15L, Anion Gap 19H, Blood Urea Nitrogen 76H, Creatinine 3.7H, Estimat Glomerular Filtration Rate , Glucose Level 138H, Uric Acid 7.1, Calcium Level 8.2L, Phosphorus Level 5.4H, Magnesium Level 1.9, Total Bilirubin 0.3, Aspartate Amino Transf (AST/SGOT) 16, Alanine Aminotransferase ( ALT/SGPT) < 6L, Alkaline Phosphatase 129H, C-Reactive Protein, Quantitative 1.5H , Pro-B-Type Natriuretic Peptide > 82928J, Total Protein 6.1L, Albumin 2.1L, Globulin 4.0, Albumin/Globulin Ratio 0.5L 10/10/18 09:00: Arterial Blood pH 7.365, Arterial Blood Partial Pressure CO2 26.6L, Arterial Blood Partial Pressure O2 50.2L, Arterial Blood HCO3 14.9*L, Arterial Blood Oxygen Saturation 83.8*L, Arterial Blood Base Excess -9.4*L, Kody Test Positive Height (Feet): 5 Height (Inches): 7.00 Weight (Pounds): 143 General Appearance: no apparent distress Cardiovascular: normal rate Respiratory/Chest: decreased breath sounds Abdomen: distended Sukhdeep Rodriguez MD Oct 10, 2018 12:44
--- NOTE | 2018-10-10 13:41 | NUR ---
CASE MANAGEMENT:REVIEW 10/10/18 SI: AC/CHR RENAL FAILURE. UTI CURRENTLY ACIDOTIC 97.2 75 18 100/50 96% ON RA CO2-15 BUN+76 CR+3.7 IS: NORVASC PO QD BICITRA PO Q6 DILANTIN PO Q8 HYDRALAZINE PO Q8HR IV MEROPENEM Q12HRS COREG PO Q12 ASA PO QD IMDUR PO QD : TELEMETRY STATUS DCP: FROM NURIA CASEY
--- NOTE | 2018-10-10 15:36 | Infectious Diseases Prog Note ---
Assessment/Plan Assessment/Plan 1. complicated esbl e.coli uti, confusional state - meropenem started - day # 3 but patient without iv access despite multiple attempts to place iv - macrobid contraindicated in renal failure and bactrim will likely worsen renal failure - wound consider picc line - monitor labs, repeat urinalysis and culture - d/w Dr. Whitlock and Dr. Rodriguez - d/w RN - d/w pharmacy and no im carbapenem available 2. The patient has acute kidney and elevated creatinine. 3. Anemia. 4. Hyponatremia. 5. Parkinson's. 6. Dementia. 7. Suprapubic catheter. 8. Urethral stricture. 9. BPH. 10. Urinary retention. 11. Hypertension. 12. Diabetes. 13. Blood sugar and blood pressure treatment per primary. 14. COPD. 15. Seizures and epilepsy. 16. No known drug allergies. 17. Social history negative. 18. Family history noncontributory. 19. MAR is noted. 20. Case discussed with RN. 21. Continue treatment with primary consultants. 22. Skin care protocol. 23. Notes were noted. Orders were entered. 24. vre colonization and isolation Subjective Constitutional: Denies: fever HEENT: Denies: congestion Respiratory: Denies: shortness of breath Cardiovascular: Denies: chest pain Gastrointestinal/Abdominal: Denies: nausea, vomiting, diarrhea Genitourinary: Reports: other - + weathers Neurologic: Denies: headache Psychiatric: Denies: depression Skin: Denies: rash Hematologic: Denies: bleeding Musculoskeletal: Denies: pain Allergies: Coded Allergies: NO KNOWN DRUG ALLERGIES (Unverified Allergy, Unknown, 04/11/14) Objective Vital Signs Last 24 Hour Vital Signs Date Time Temp Pulse Resp B/P (MAP) Pulse Ox O2 Delivery O2 Flow Rate FiO2 10/10/18 14:00 100/50 10/10/18 12:00 77 10/10/18 12:00 97.2 75 18 100/50 (67) 96 10/10/18 12:00 74 10/10/18 09:00 Room Air 10/10/18 08:42 76 110/51 10/10/18 08:41 110/51 10/10/18 08:40 76 110/51 10/10/18 08:00 97.6 76 20 110/51 (70) 97 10/10/18 08:00 77 10/10/18 05:30 119/57 10/10/18 04:20 97.8 85 18 119/57 (77) 97 10/10/18 03:59 76 10/10/18 00:07 98.0 82 17 121/53 (75) 97 10/09/18 23:59 79 10/09/18 21:32 113/60 10/09/18 21:25 89 113/60 10/09/18 21:00 Room Air 10/09/18 20:00 89 10/09/18 20:00 97.9 89 17 113/60 (77) 97 10/09/18 16:00 97.6 83 20 142/66 (91) 96 10/09/18 16:00 86 Height (Feet): 5 Height (Inches): 7.00 Weight (Pounds): 143 General Appearance: no acute distress HEENT: normocephalic, atraumatic, anicteric, mucous membranes moist Respiratory/Chest: normal breath sounds, no respiratory distress, no accessory muscle use Cardiovascular: normal rate, regular rhythm, no gallop/murmur, no JVD Abdomen: normal bowel sounds, soft, non tender, no organomegaly, non distended Genitourinary: other - + weathers - urine slt cloudy Extremities: no cyanosis Skin: no rash Neurologic/Psychiatric: inside wireman II-XII grossly normal, alert, responsive Lymphatic: no neck adenopathy Musculoskeletal: no effusion Objective CT abdomen and pelvis: IMPRESSION: Chronic cystitis/ureteritis signs of chronic inflammation/infection. Mild hydronephrosis. Correlate for concurrent or active UTI. Suprapubic catheter in good position. Chronic calcific pancreatitis IVC filter Reticular densities at the right lung base nonspecific, acuity indeterminant. Atherosclerotic disease L5 spondylolysis. L5 on S1 spondylolisthesis. Normal appendix Mild diverticulosis of the colon. No definite diverticulitis. Small bilateral inguinal hernias containing fat. Chest x-ray - nad, report noted Microbiology Date/Time Source Procedure Growth Status 10/05/18 12:30 Blood Blood Culture - Preliminary NO GROWTH AFTER 4 DAYS Resulted 10/05/18 15:15 Nasal Nares MRSA Culture - Final NO METHICILLIN RESISTANT STAPH AUREUS... Complete 10/05/18 12:15 Urine,Clean Catch Urine Culture - Final Escherichia Coli - Esbl Complete 10/05/18 15:15 Rectum VRE Culture - Final Enterococcus Faecalis - Vre Complete 10/05/18 15:15 Rectum - Final NO CARBAPENEM-RESISTANT ENTEROBACTERI... Complete Laboratory Tests Test 10/10/18 06:00 10/10/18 09:00 White Blood Count 6.0 K/UL (4.8-10.8) Red Blood Count 3.27 M/UL (4.70-6.10) L Hemoglobin 8.7 G/DL (14.2-18.0) L Hematocrit 28.2 % (42.0-52.0) L Mean Corpuscular Volume 86 FL (80-99) Mean Corpuscular Hemoglobin 26.8 PG (27.0-31.0) L Mean Corpuscular Hemoglobin Concent 31.1 G/DL (32.0-36.0) L Red Cell Distribution Width 16.4 % (11.6-14.8) H Platelet Count 298 K/UL (150-450) Mean Platelet Volume 5.1 FL (6.5-10.1) L Neutrophils (%) (Auto) 64.7 % (45.0-75.0) Lymphocytes (%) (Auto) 13.1 % (20.0-45.0) L Monocytes (%) (Auto) 17.1 % (1.0-10.0) H Eosinophils (%) (Auto) 3.5 % (0.0-3.0) H Basophils (%) (Auto) 1.6 % (0.0-2.0) Prothrombin Time 10.7 SEC (9.30-11.50) Prothromb Time International Ratio 1.0 (0.9-1.1) Sodium Level 142 MMOL/L (136-145) Potassium Level 3.9 MMOL/L (3.5-5.1) Chloride Level 108 MMOL/L (98-107) H Carbon Dioxide Level 15 MMOL/L (21-32) L Anion Gap 19 mmol/L (5-15) H Blood Urea Nitrogen 76 mg/dL (7-18) H Creatinine 3.7 MG/DL (0.55-1.30) H Estimat Glomerular Filtration Rate mL/min (>60) Glucose Level 138 MG/DL (74-106) H Uric Acid 7.1 MG/DL (2.6-7.2) Calcium Level 8.2 MG/DL (8.5-10.1) L Phosphorus Level 5.4 MG/DL (2.5-4.9) H Magnesium Level 1.9 MG/DL (1.8-2.4) Total Bilirubin 0.3 MG/DL (0.2-1.0) Aspartate Amino Transf (AST/SGOT) 16 U/L (15-37) Alanine Aminotransferase (ALT/SGPT) < 6 U/L (12-78) L Alkaline Phosphatase 129 U/L (46-116) H C-Reactive Protein, Quantitative 1.5 mg/dL (0.00-0.90) H Pro-B-Type Natriuretic Peptide > 20044 pg/mL (0-125) H Total Protein 6.1 G/DL (6.4-8.2) L Albumin 2.1 G/DL (3.4-5.0) L Globulin 4.0 g/dL Albumin/Globulin Ratio 0.5 (1.0-2.7) L Arterial Blood pH 7.365 (7.350-7.450) Arterial Blood Partial Pressure CO2 26.6 mmHg (35.0-45.0) L Arterial Blood Partial Pressure O2 50.2 mmHg (75.0-100.0) L Arterial Blood HCO3 14.9 mmol/L (22.0-26.0) *L Arterial Blood Oxygen Saturation 83.8 % (95-100) *L Arterial Blood Base Excess -9.4 (-2-2) *L Kody Test Positive Current Medications Medications (Trade) Dose Ordered Sig/Thu Route PRN Reason Start Time Stop Time Status Last Admin Dose Admin Acetaminophen (Tylenol) 650 mg Q6H PRN ORAL Mild Pain/Temp > 100.5 10/05/18 17:45 11/04/18 17:44 Amlodipine Besylate (Norvasc) 2.5 mg DAILY ORAL 10/11/18 09:00 11/05/18 08:59 Aspirin (ASA) 81 mg DAILY ORAL 10/06/18 09:00 11/05/18 08:59 10/10/18 08:41 Benztropine Mesylate (Cogentin) 1 mg BID ORAL 10/05/18 18:00 11/04/18 17:59 10/10/18 08:41 Carbidopa/Levodopa (Sinemet 25/100) 1 tab THREE TIMES A DAY ORAL 10/05/18 18:00 11/04/18 17:59 10/10/18 13:06 Carvedilol (Coreg) 25 mg EVERY 12 HOURS ORAL 10/07/18 21:00 11/06/18 20:59 10/10/18 08:40 Chlorhexidine Gluconate (Denita-Hex 2%) 1 applic DAILY@2000 TOPIC 10/09/18 20:00 11/08/18 19:59 10/09/18 20:38 Citalopram Hydrobromide (celeXA) 20 mg DAILY ORAL 10/06/18 09:00 11/05/18 08:59 10/10/18 08:41 Docusate Sodium (Colace) 100 mg TID ORAL 10/08/18 09:00 11/05/18 08:59 10/10/18 13:06 Donepezil HCl (Aricept) 10 mg DAILY ORAL 10/06/18 09:00 11/05/18 08:59 10/10/18 08:41 Epoetin Zaid (Epoetin Zaid-EPBX(NON ESRD)) 4,000 unit WED-WED-WED SUBQ 10/07/18 21:00 11/04/18 20:59 10/07/18 20:16 Heparin Sodium (Porcine) (Heparin 5000 units/ml) 5,000 units EVERY 12 HOURS SUBQ 10/05/18 21:00 11/04/18 20:59 10/10/18 08:48 Heparin Sodium/ Sodium Chloride (Heparin 1000 units/500ml Premix) 1,000 unit ONCE PRN IV picc line placement 10/09/18 14:30 10/11/18 14:29 Hydralazine HCl (Apresoline) 50 mg Q8HR ORAL 10/10/18 14:00 11/04/18 21:59 Isosorbide Mononitrate (Imdur) 60 mg DAILY ORAL 10/06/18 09:00 11/05/18 08:59 10/10/18 08:41 Lidocaine HCl (Xylocaine 1% 30ml) 30 ml ONCE PRN INJ picc line placement 10/09/18 14:30 10/11/18 14:29 Lorazepam (Ativan) 1 mg Q6H PRN ORAL For Anxiety 10/07/18 09:15 10/14/18 09:14 10/07/18 22:14 Meropenem 500 mg/ Sodium Chloride 55 ml @ 110 mls/hr Q12H IVPB 10/08/18 12:00 10/13/18 11:59 10/09/18 11:36 Ondansetron HCl (Zofran) 4 mg Q6H PRN IVP Nausea & Vomiting 10/07/18 13:15 11/06/18 13:14 10/08/18 23:01 Oxycodone/ Acetaminophen (Percocet 5-325) 1 tab Q6H PRN ORAL Severe Pain (Pain Scale 7-10) 10/05/18 17:45 10/12/18 17:44 Phenytoin (Dilantin) 100 mg Q8HR ORAL 10/10/18 14:00 11/04/18 17:59 10/10/18 13:06 Pravastatin Sodium (Pravachol) 20 mg BEDTIME ORAL 10/07/18 21:00 11/04/18 20:59 10/09/18 21:24 Sevelamer Carbonate (Renvela) 800 mg THREE TIMES A DAY ORAL 10/09/18 09:00 11/08/18 08:59 10/10/18 13:05 Sodium Citrate (Bicitra) 45 ml EVERY 6 HOURS ORAL 10/10/18 18:00 11/08/18 00:00 Vitamin B Complex/ Vit C/Folic Acid (Nephrovite) 1 tab DAILY ORAL 10/06/18 09:00 11/05/18 08:59 10/10/18 08:41 Catina Hooper MD Oct 10, 2018 15:36
[2018-10-10 16:00] VITALS: BP 125/58
--- NOTE | 2018-10-10 16:35 | NUR ---
Social Service Note Patient is under LPS Conservatorship under the public guardian. Public Guardian is Harrygerman Pineda [phone]. Per PG if patient requires a procedure that requires a consent that is not mental health related or emergent than a physician and psychiatrist will be required to completed a 7 point form which will be submitted to court for judgement. However if a physician determines that a procedure in emergent, documents risks, benefits, possible outcomes and urgency, PG to be notified and then proceed with procedure. SW also clarified with PG and SW at [facility] during August 2018 admission that patient doesn't have any next of kin. The name Sukhdeep Dubon will be removed from face sheet.
--- NOTE | 2018-10-10 19:11 | Cardiology Progress Note ---
Assessment/Plan Status: stable Assessment/Plan Assessment/Plan: Assessment/Plan UTI in pt with suprapubic catheter Urethral strictures s/p suprapubic catheter SEVEN on CKD Hx of cardiomyopathy LVEF 45% DM Seizures Dementia -Echocardiogram reviewed LVEF 45% -Outpatient stress test, CT showed atherosclerotic disease, no chest pain currently -Statin -Aspirin -Continue norvasc -Hold ACEI/ARB given SEVEN -Hyponatremia resolved -Continue meropenem for UTI, adjust per ID -Will need PICC line Subjective Cardiovascular: Reports: no symptoms Respiratory: Reports: no symptoms Gastrointestinal/Abdominal: Reports: no symptoms Genitourinary: Reports: no symptoms Subjective No acute events, patient refusing meds and vitals. Echo with LVEF 45%, on meropenem, no fevers, NA now normal 142 Objective Last 24 Hour Vital Signs Date Time Temp Pulse Resp B/P (MAP) Pulse Ox O2 Delivery O2 Flow Rate FiO2 10/10/18 16:00 97.4 76 20 125/58 (80) 98 10/10/18 14:00 100/50 10/10/18 12:00 77 10/10/18 12:00 97.2 75 18 100/50 (67) 96 10/10/18 12:00 74 10/10/18 09:00 Room Air 10/10/18 08:42 76 110/51 10/10/18 08:41 110/51 10/10/18 08:40 76 110/51 10/10/18 08:00 97.6 76 20 110/51 (70) 97 10/10/18 08:00 77 10/10/18 05:30 119/57 10/10/18 04:20 97.8 85 18 119/57 (77) 97 10/10/18 03:59 76 10/10/18 00:07 98.0 82 17 121/53 (75) 97 10/09/18 23:59 79 10/09/18 21:32 113/60 10/09/18 21:25 89 113/60 10/09/18 21:00 Room Air 10/09/18 20:00 89 10/09/18 20:00 97.9 89 17 113/60 (77) 97 General Appearance: no apparent distress, alert EENT: PERRL/EOMI, normal ENT inspection, TMs normal, pharynx normal Neck: non-tender, normal alignment, supple, normal inspection, no JVD Rhythm: NSR Cardiovascular: normal peripheral pulses, normal rate Respiratory/Chest: chest wall non-tender, lungs clear, normal breath sounds Abdomen: normal bowel sounds, non tender, soft, no organomegaly, no mass Extremities: normal range of motion, non-tender Neurologic: solution coordinator II-XII grossly normal, no motor/sensory deficits Intake and Output 10/09/18 10/10/18 18:59 06:59 Intake Total 480 ml Output Total 550 ml 500 ml Balance -70 ml -500 ml Intake Oral 480 ml Output Urine Total 550 ml 500 ml # Voids 1 Laboratory Tests Test 10/10/18 06:00 10/10/18 09:00 White Blood Count 6.0 K/UL (4.8-10.8) Red Blood Count 3.27 M/UL (4.70-6.10) L Hemoglobin 8.7 G/DL (14.2-18.0) L Hematocrit 28.2 % (42.0-52.0) L Mean Corpuscular Volume 86 FL (80-99) Mean Corpuscular Hemoglobin 26.8 PG (27.0-31.0) L Mean Corpuscular Hemoglobin Concent 31.1 G/DL (32.0-36.0) L Red Cell Distribution Width 16.4 % (11.6-14.8) H Platelet Count 298 K/UL (150-450) Mean Platelet Volume 5.1 FL (6.5-10.1) L Neutrophils (%) (Auto) 64.7 % (45.0-75.0) Lymphocytes (%) (Auto) 13.1 % (20.0-45.0) L Monocytes (%) (Auto) 17.1 % (1.0-10.0) H Eosinophils (%) (Auto) 3.5 % (0.0-3.0) H Basophils (%) (Auto) 1.6 % (0.0-2.0) Prothrombin Time 10.7 SEC (9.30-11.50) Prothromb Time International Ratio 1.0 (0.9-1.1) Sodium Level 142 MMOL/L (136-145) Potassium Level 3.9 MMOL/L (3.5-5.1) Chloride Level 108 MMOL/L (98-107) H Carbon Dioxide Level 15 MMOL/L (21-32) L Anion Gap 19 mmol/L (5-15) H Blood Urea Nitrogen 76 mg/dL (7-18) H Creatinine 3.7 MG/DL (0.55-1.30) H Estimat Glomerular Filtration Rate mL/min (>60) Glucose Level 138 MG/DL (74-106) H Uric Acid 7.1 MG/DL (2.6-7.2) Calcium Level 8.2 MG/DL (8.5-10.1) L Phosphorus Level 5.4 MG/DL (2.5-4.9) H Magnesium Level 1.9 MG/DL (1.8-2.4) Total Bilirubin 0.3 MG/DL (0.2-1.0) Aspartate Amino Transf (AST/SGOT) 16 U/L (15-37) Alanine Aminotransferase (ALT/SGPT) < 6 U/L (12-78) L Alkaline Phosphatase 129 U/L (46-116) H C-Reactive Protein, Quantitative 1.5 mg/dL (0.00-0.90) H Pro-B-Type Natriuretic Peptide > 62472 pg/mL (0-125) H Total Protein 6.1 G/DL (6.4-8.2) L Albumin 2.1 G/DL (3.4-5.0) L Globulin 4.0 g/dL Albumin/Globulin Ratio 0.5 (1.0-2.7) L Arterial Blood pH 7.365 (7.350-7.450) Arterial Blood Partial Pressure CO2 26.6 mmHg (35.0-45.0) L Arterial Blood Partial Pressure O2 50.2 mmHg (75.0-100.0) L Arterial Blood HCO3 14.9 mmol/L (22.0-26.0) *L Arterial Blood Oxygen Saturation 83.8 % (95-100) *L Arterial Blood Base Excess -9.4 (-2-2) *L Kody Test Positive Eric Arce MD Oct 10, 2018 19:11
--- NOTE | 2018-10-10 19:30 | NUR ---
NURSE NOTES: Received patient from Ann-Marie RN. Patient awake in bed, on room air, no s/s of respiratory distress. Patient refusing nasal cannula. Suprapubic catheter intact, patent, kermit output. Bed in low position, locked, bed alarm on, call light within reach.
--- NOTE | 2018-10-10 19:36 | NUR ---
HAND-OFF: Report given to Edmond/RN, Patient is asleep, No acute distress/SOB noted. Endorsed plan of care.
[2018-10-10 20:00] VITALS: BP 123/56
[2018-10-10] MEDS: Dyna-Hex 2% Top Sol 2oz TOPIC SCH (20:00)
--- NOTE | 2018-10-10 21:00 | NUR ---
NURSE NOTES: will hold heparin for PICC placement tomorrow.
[2018-10-10] MEDS: Epoetin Alfa-EPBX (NON ESRD)4000 units/ml vial SUBQ SCH (21:22)
[2018-10-11] VITALS: BP 103/50
--- NOTE | 2018-10-11 | Progress Note ---
DATE: 10/10/2018 SUBJECTIVE: The patient was in bed, in no acute distress. The patient is less confused and more alert; however, still has episodes of agitation. Unable to understand, process, or communicate in a rational manner. MENTAL STATUS EXAMINATION: The patient is alert and oriented times to self. Mood is neutral to agitation. Affect is flat. Thought process, there is a paucity of thought content. Memory is impaired. The patient does not have capacity to make decision for the PICC line. ASSESSMENT: 1. Dementia. 2. Encephalopathy. PLAN: The patient lacks capacity to sign consent form. Therefore, if there is an urgency the PICC line could be placed without any consent. Continue the current medication. Paulina Krishnan M.D. DR: SHASHANK JOB#: [id number] CC:
--- NOTE | 2018-10-11 00:05 | NUR ---
NURSE NOTES: Unable to administer Merrem IV, all IV meds held because of no IV access. Doctors Michael, Chinyere, and [place] are all aware. Patient to get consent and PICC placement in morning.
--- NOTE | 2018-10-11 00:07 | NUR ---
NURSE NOTES: Patient refused midnight dose of sodium citrate. Explained to patient that he has low sodium levels and needs it, patient stated "I don't care."
[2018-10-11 04:00] VITALS: BP 121/57
[2018-10-11] MEDS: HydrALAZINE 50mg tab ORAL SCH ×3 (05:44→21:26)
[2018-10-11] MEDS: Phenytoin 100mg cap ORAL SCH (05:44)
[2018-10-11] MEDS: Sodium Citrate 30ml ORAL SCH ×4 (05:48→23:24)
--- NOTE | 2018-10-11 07:25 | NUR ---
NURSE NOTES: Report received from PARAM Pruitt. Pt is lying in semi-fowlers with no signs of distress. A+Ox1. No IV site; MD aware and pt awaiting PICC placement once consent is verified. Respirations are even and unlabored on room air. Bed is at lowest position, brakes engaged, siderails x2, bed alarm on, and call light within reach. Suprapubic catheter is patent and draining to gravity. Will continue to monitor.
--- NOTE | 2018-10-11 07:30 | NUR ---
HAND-OFF: Report given to Sheela VIRGEN.
--- NOTE | 2018-10-11 07:31 | NUR ---
NURSE NOTES: Attempted to orthopedically impaired teacher on face sheet for consent for PICC line, no answer. Cannot leave voicemail.
[2018-10-11 08:00] VITALS: BP 132/65
--- NOTE | 2018-10-11 08:25 | NUR ---
NURSE NOTES: Spoke with Servando Pineda about consent for PICC placement. She said patient is under LTS conservatorship and it could take 6-8 weeks for the courts to decide on invasive measures for patient. She said if it is an emergency, we can go with hospital protocol. She will send over patient's paperwork about conservatorship.
[2018-10-11 08:31] LABS: BASOPHILS % (AUTO) 2.5 % (0.0-2.0); EOSINOPHILS % (AUTO) 6.5 % (0.0-3.0); HEMATOCRIT 28.7 % (42.0-52.0); HEMOGLOBIN 8.8 G/DL (14.2-18.0); LYMPHOCYTES % (AUTO) 13.2 % (20.0-45.0); MEAN CORPUSCULAR VOLUME 86 FL (80-99); MONOCYTES % (AUTO) 13.3 % (1.0-10.0); NEUTROPHILS % (AUTO) 64.5 % (45.0-75.0); PLATELET COUNT 298 K/UL (150-450); RED BLOOD COUNT 3.32 M/UL (4.70-6.10); RED CELL DISTRIBUTION WIDTH 16.3 % (11.6-14.8); WHITE BLOOD COUNT 6.8 K/UL (4.8-10.8)
[2018-10-11 08:55] LABS: ALANINE AMINOTRANSFERASE < 6 U/L (12-78); ALBUMIN 2.3 G/DL (3.4-5.0); ALBUMIN/GLOBULIN RATIO 0.6 (1.0-2.7); ALKALINE PHOSPHATASE 134 U/L (46-116); ANION GAP 17 mmol/L (5-15); ASPARTATE AMINO TRANSFERASE 22 U/L (15-37); BILIRUBIN,TOTAL 0.2 MG/DL (0.2-1.0); BLOOD UREA NITROGEN 69 mg/dL (7-18); CALCIUM 7.8 MG/DL (8.5-10.1); CARBON DIOXIDE 19 MMOL/L (21-32); CHLORIDE 103 MMOL/L (98-107); CREATININE 3.3 MG/DL (0.55-1.30); POTASSIUM 3.5 MMOL/L (3.5-5.1); SODIUM 139 MMOL/L (136-145)
[2018-10-11] MEDS: Heparin 5000 units/ml inj SUBQ SCH ×2 (09:00→21:00)
--- NOTE | 2018-10-11 09:00 | NUR ---
NURSE NOTES: Made Dr. Whitlock aware of PICC line placement consent status. She said she will do a two physician consent. She signed and will have Dr. Callahan sign as well.
[2018-10-11] MEDS: Docusate 100mg cap ORAL SCH ×3 (09:11→17:13)
[2018-10-11] MEDS: Aspirin Baby 81mg ORAL SCH (09:11)
[2018-10-11] MEDS: Citalopram Hydrobromide 10mg Tab ORAL SCH (09:12)
[2018-10-11] MEDS: Levodopa/Carbidopa 25/100 tab ORAL SCH ×3 (09:23→17:15)
[2018-10-11] MEDS: Benztropine 1mg tab ORAL SCH ×2 (09:24→17:15)
[2018-10-11] MEDS: Donepezil 10mg tab ORAL SCH (09:24)
[2018-10-11] MEDS: Imdur 30mg tab ORAL SCH (09:24)
[2018-10-11] MEDS: Nephrovite tab (Rena-Vite) ORAL SCH (09:24)
[2018-10-11] MEDS: Carvedilol 25mg Tab ORAL SCH ×2 (09:24→21:25)
--- NOTE | 2018-10-11 09:25 | NUR ---
DISCHARGE PLANNING FAXED CLINICALS TO [facility] T: [phone] F: [phone] AWAIT ASSIGNED ROOM NUMBER AND OFFICIAL DISCHARGE ORDER Addendum: 10/11/18 at 1611 by ELISA RODRIGUEZ LVN LVN ACCEPTED AT [facility] ROOM 204-D WAITING FOR PICC LINE TO BE PLACED AND DISCHARGE ORDER TO BE GIVEN
--- NOTE | 2018-10-11 11:40 | Cardiology Progress Note ---
Assessment/Plan Status: stable, progressing Assessment/Plan Assessment/Plan: Assessment/Plan UTI in pt with suprapubic catheter Urethral strictures s/p suprapubic catheter SEVEN on CKD Hx of cardiomyopathy LVEF 45% DM Seizures Dementia -Echocardiogram reviewed LVEF 45% -Outpatient stress test, CT showed atherosclerotic disease, no chest pain currently -Statin -Aspirin -Continue norvasc -Hold ACEI/ARB given SEVEN -Hyponatremia resolved -Continue meropenem for UTI, adjust per ID -Will need PICC line Subjective Cardiovascular: Reports: no symptoms Respiratory: Reports: no symptoms Gastrointestinal/Abdominal: Reports: no symptoms Genitourinary: Reports: no symptoms Subjective No acute events, patient refusing meds and vitals. Echo with LVEF 45%, on meropenem, no fevers, NA now normal Awaiting PICC line placement for abx Objective Last 24 Hour Vital Signs Date Time Temp Pulse Resp B/P (MAP) Pulse Ox O2 Delivery O2 Flow Rate FiO2 10/11/18 09:24 79 132/65 10/11/18 09:24 79 132/65 10/11/18 09:24 132/65 10/11/18 09:00 Room Air Room Air 10/11/18 08:00 69 10/11/18 08:00 98.1 79 23 132/65 (87) 99 10/11/18 05:44 128/60 10/11/18 04:00 97.3 69 18 121/57 (78) 98 10/11/18 03:27 74 10/11/18 00:00 97.1 75 18 103/50 (67) 96 10/10/18 23:34 66 10/10/18 21:21 123/56 10/10/18 21:21 83 123/56 10/10/18 21:00 Room Air Room Air 10/10/18 20:00 97.1 83 18 123/56 (78) 97 10/10/18 19:45 76 10/10/18 16:00 77 10/10/18 16:00 97.4 76 20 125/58 (80) 98 10/10/18 14:00 100/50 10/10/18 12:00 77 10/10/18 12:00 97.2 75 18 100/50 (67) 96 10/10/18 12:00 74 General Appearance: no apparent distress, alert EENT: PERRL/EOMI, normal ENT inspection, TMs normal, pharynx normal Neck: non-tender, normal alignment Rhythm: NSR Cardiovascular: normal peripheral pulses, normal rate, regularly irregular Respiratory/Chest: chest wall non-tender, lungs clear, normal breath sounds Abdomen: normal bowel sounds, non tender, soft, no organomegaly Extremities: normal range of motion, non-tender, normal inspection, no calf tenderness, no swelling Neurologic: senior qc technician II-XII grossly normal, no motor/sensory deficits Intake and Output 10/10/18 10/11/18 19:00 07:00 Intake Total 360 ml 120 ml Output Total 300 ml 750 ml Balance 60 ml -630 ml Intake Oral 360 ml 120 ml Output Urine Total 300 ml 750 ml Laboratory Tests Test 10/11/18 07:55 White Blood Count 6.8 K/UL (4.8-10.8) Red Blood Count 3.32 M/UL (4.70-6.10) L Hemoglobin 8.8 G/DL (14.2-18.0) L Hematocrit 28.7 % (42.0-52.0) L Mean Corpuscular Volume 86 FL (80-99) Mean Corpuscular Hemoglobin 26.6 PG (27.0-31.0) L Mean Corpuscular Hemoglobin Concent 30.8 G/DL (32.0-36.0) L Red Cell Distribution Width 16.3 % (11.6-14.8) H Platelet Count 298 K/UL (150-450) Mean Platelet Volume 5.1 FL (6.5-10.1) L Neutrophils (%) (Auto) 64.5 % (45.0-75.0) Lymphocytes (%) (Auto) 13.2 % (20.0-45.0) L Monocytes (%) (Auto) 13.3 % (1.0-10.0) H Eosinophils (%) (Auto) 6.5 % (0.0-3.0) H Basophils (%) (Auto) 2.5 % (0.0-2.0) H Sodium Level 139 MMOL/L (136-145) Potassium Level 3.5 MMOL/L (3.5-5.1) Chloride Level 103 MMOL/L (98-107) Carbon Dioxide Level 19 MMOL/L (21-32) L Anion Gap 17 mmol/L (5-15) H Blood Urea Nitrogen 69 mg/dL (7-18) H Creatinine 3.3 MG/DL (0.55-1.30) H Estimat Glomerular Filtration Rate mL/min (>60) Glucose Level 146 MG/DL (74-106) H Calcium Level 7.8 MG/DL (8.5-10.1) L Total Bilirubin 0.2 MG/DL (0.2-1.0) Aspartate Amino Transf (AST/SGOT) 22 U/L (15-37) Alanine Aminotransferase (ALT/SGPT) < 6 U/L (12-78) L Alkaline Phosphatase 134 U/L (46-116) H Total Protein 6.1 G/DL (6.4-8.2) L Albumin 2.3 G/DL (3.4-5.0) L Globulin 3.8 g/dL Albumin/Globulin Ratio 0.6 (1.0-2.7) L Microbiology Date/Time Source Procedure Growth Status 10/10/18 18:30 Indwelling Cath Urine Culture - Preliminary NO GROWTH Resulted Eric Arce MD Oct 11, 2018 11:40
[2018-10-11] MEDS: Meropenem 500mg/NS 55ml IVPB SCH ×4 (11:42)
[2018-10-11 12:00] VITALS: BP 108/43
--- NOTE | 2018-10-11 12:04 | Nephrology Progress Note ---
Assessment/Plan Problem List: (1) Renal failure (ARF), acute on chronic (2) Cardiomyopathy (3) Hypertensive kidney disease (4) Anemia (5) Hyponatremia (6) Metabolic acidosis Assessment UTI (urinary tract infection) HypoNatremia , Na down to 128 today Renal failure (ARF), acute on chronic / serum Cr upon last discharge was 3.5- today is 3.4 almost unchanged Prostate hypertrophy / Supra pubic cath Bilateral hydronephrosis Urethral stricture Cardiomyopathy ej Fx 45% Hypertensive kidney disease Anemia HypoAlbuminemia Plan Plan: One dose Digoxin PO 10/09 ABG improved- Bicarb IV never got it due to no access- will DC Adjust BP meds and Epogen doses monitor lytes and renal parameters increase PO Bicitra renal diet Phos binders IV venofer per orders Subjective ROS Limited/Unobtainable: No Constitutional: Reports: malaise Objective Objective Last 24 Hour Vital Signs Date Time Temp Pulse Resp B/P (MAP) Pulse Ox O2 Delivery O2 Flow Rate FiO2 10/11/18 09:24 79 132/65 10/11/18 09:24 79 132/65 10/11/18 09:24 132/65 10/11/18 09:00 Room Air Room Air 10/11/18 08:00 69 10/11/18 08:00 98.1 79 23 132/65 (87) 99 10/11/18 05:44 128/60 10/11/18 04:00 97.3 69 18 121/57 (78) 98 10/11/18 03:27 74 10/11/18 00:00 97.1 75 18 103/50 (67) 96 10/10/18 23:34 66 10/10/18 21:21 123/56 10/10/18 21:21 83 123/56 10/10/18 21:00 Room Air Room Air 10/10/18 20:00 97.1 83 18 123/56 (78) 97 10/10/18 19:45 76 10/10/18 16:00 77 10/10/18 16:00 97.4 76 20 125/58 (80) 98 10/10/18 14:00 100/50 Intake and Output 10/10/18 10/11/18 19:00 07:00 Intake Total 360 ml 120 ml Output Total 300 ml 750 ml Balance 60 ml -630 ml Intake Oral 360 ml 120 ml Output Urine Total 300 ml 750 ml Laboratory Tests 10/11/18 07:55: White Blood Count 6.8, Red Blood Count 3.32L, Hemoglobin 8.8L, Hematocrit 28.7L , Mean Corpuscular Volume 86, Mean Corpuscular Hemoglobin 26.6L, Mean Corpuscular Hemoglobin Concent 30.8L, Red Cell Distribution Width 16.3H, Platelet Count 298, Mean Platelet Volume 5.1L, Neutrophils (%) (Auto) 64.5, Lymphocytes (%) (Auto) 13.2L, Monocytes (%) (Auto) 13.3H, Eosinophils (%) (Auto ) 6.5H, Basophils (%) (Auto) 2.5H, Sodium Level 139, Potassium Level 3.5, Chloride Level 103, Carbon Dioxide Level 19L, Anion Gap 17H, Blood Urea Nitrogen 69H, Creatinine 3.3H, Estimat Glomerular Filtration Rate , Glucose Level 146H, Calcium Level 7.8L, Total Bilirubin 0.2, Aspartate Amino Transf (AST /SGOT) 22, Alanine Aminotransferase (ALT/SGPT) < 6L, Alkaline Phosphatase 134H, Total Protein 6.1L, Albumin 2.3L, Globulin 3.8, Albumin/Globulin Ratio 0.6L Height (Feet): 5 Height (Inches): 7.00 Weight (Pounds): 143 General Appearance: no apparent distress, lethargic Respiratory/Chest: decreased breath sounds Abdomen: soft Sukhdeep Rodriguez MD Oct 11, 2018 12:04
[2018-10-11 14:50] LABS: APPEARANCE,URINE CLOUDY; BILIRUBIN, URINE NEGATIVE (NEGATIVE); COLOR,URINE PALE YELLOW; GLUCOSE, URINE (UA) NEGATIVE (NEGATIVE); KETONES,URINE 2+ (NEGATIVE); LEUKOCYTE ESTERASE ,URINE 3+ (NEGATIVE); NITRITE,URINE NEGATIVE (NEGATIVE); PH,URINE 5 (4.5-8.0); PROTEIN,URINE 3+ (NEGATIVE); UROBILINOGEN,URINE NORMAL MG/DL (0.0-1.0)
[2018-10-11 16:00] VITALS: BP 132/75
--- NOTE | 2018-10-11 18:30 | Progress Note ---
DATE: 10/11/2018 SUBJECTIVE: The patient is status post PICC line placement. The patient is more alert, however, still disoriented and confused. MENTAL STATUS EXAMINATION: Alert and oriented to self. He is disoriented. Mood is neutral to anxious. Affect is flat. Thought process, there is a paucity of thought content. Thought content, no suicidal or homicidal ideation. Memory and attention is impaired. ASSESSMENT: Stable. PLAN: We will continue current medication. Provide the patient with reality orientation. Paulina Krishnan M.D. DR: KAYLENE JOB#: [id number] CC:
--- NOTE | 2018-10-11 19:07 | NUR ---
HAND-OFF: Report given to PARAM Pruitt. Pt is in stable condition; plan of care endorsed.
--- NOTE | 2018-10-11 19:10 | NUR ---
NURSE NOTES: Received patient from [facility]. Patient in bed, awake, alert and oriented x1. Suprapubic catheter intact, patent, with kermit output. Still no IV access, will hold IV MD randi aware, PICC placement scheduled for tomorrow. Bed in low position, locked, bed alarm on, call light within reach. Patient on room air, refusing nasal cannula, no s/s of respiratory distress.
[2018-10-11 20:00] VITALS: BP 140/60
[2018-10-11] MEDS: Dyna-Hex 2% Top Sol 2oz TOPIC SCH (20:00)
[2018-10-11] MEDS ORDERED: Phenytoin 100mg cap ORAL SCH (21:00)
--- NOTE | 2018-10-11 21:00 | NUR ---
NURSE NOTES: Held heparin for PICC placement tomorrow.
--- NOTE | 2018-10-11 22:32 | General Progress Note ---
Assessment/Plan Status: stable, progressing Assessment/Plan: 73 year old male with PMH of seizure d/o, urethral stricture s/p suprapubic catheter, CKD was transferred from [facility] for diarrhea and vomiting for past few days admitted for UTI #UTI in pt with suprabupic catheter #Urethral strictures s/p suprapubic catheter -abx changed to Meropenem (SNF resident) - cont until sensitivities return -monitor urinary output -f/u cultures -ID consult appreciated -PICC line today- will need 2 MD consent - consent signed in chart -can DC back to SNF after placement #SEVEN on CKD - improved #Anion gap metabolic acidosis -likely prerenal 2/2 dehydration 2/2 diarrhea and vomiting -CTM -avoid nephrotoxic medications -gentle hydration -nephrology consulted - Dr. Sanchez (also PCP) - Dr. Rodriguez covering and notes reviewed. - Baseline creatinine last discharge 2.5 - Cont Bicitra PO, discussed with nephrology, will hold off on IV bicarbonate since acidemia improved #Hx of cardiomyopathy -cardiology consult appreciated -echo reviewed #DM -ISS -DM diet -FSG QAC and HS #Seizures -cont home meds -seizure precautions #Dementia -delirium precautions -Neuro consulted # Disposition Resident at [facility] PT mobility protocol and assessment requested Patient reports being ambulatory prior to admission Full code DVT: HSq Subjective Date patient seen: Oct 11, 2018 Allergies: Coded Allergies: NO KNOWN DRUG ALLERGIES (Unverified Allergy, Unknown, 04/11/14) Subjective NO acute overnight events, pt with no complaints, creatinine improved. picc placement then can DC back with meropenem Objective Last 24 Hour Vital Signs Date Time Temp Pulse Resp B/P (MAP) Pulse Ox O2 Delivery O2 Flow Rate FiO2 10/11/18 21:26 159/77 10/11/18 21:25 76 159/77 10/11/18 20:00 97.7 76 18 140/60 (86) 98 10/11/18 16:00 75 10/11/18 16:00 98.3 70 20 132/75 (94) 98 10/11/18 13:04 108/43 10/11/18 12:00 97.3 66 20 108/43 (64) 96 10/11/18 12:00 59 10/11/18 09:24 79 132/65 7/9/19 09:24 79 132/65 10/11/18 09:24 132/65 10/11/18 09:00 Room Air Room Air 10/11/18 08:00 69 10/11/18 08:00 98.1 79 23 132/65 (87) 99 10/11/18 05:44 128/60 10/11/18 04:00 97.3 69 18 121/57 (78) 98 10/11/18 03:27 74 10/11/18 00:00 97.1 75 18 103/50 (67) 96 10/10/18 23:34 66 Intake and Output 10/10/18 10/11/18 18:59 06:59 Intake Total 360 ml 120 ml Output Total 300 ml 750 ml Balance 60 ml -630 ml Intake Oral 360 ml 120 ml Output Urine Total 300 ml 750 ml Laboratory Tests 10/11/18 07:55: White Blood Count 6.8, Red Blood Count 3.32L, Hemoglobin 8.8L, Hematocrit 28.7L , Mean Corpuscular Volume 86, Mean Corpuscular Hemoglobin 26.6L, Mean Corpuscular Hemoglobin Concent 30.8L, Red Cell Distribution Width 16.3H, Platelet Count 298, Mean Platelet Volume 5.1L, Neutrophils (%) (Auto) 64.5, Lymphocytes (%) (Auto) 13.2L, Monocytes (%) (Auto) 13.3H, Eosinophils (%) (Auto ) 6.5H, Basophils (%) (Auto) 2.5H, Sodium Level 139, Potassium Level 3.5, Chloride Level 103, Carbon Dioxide Level 19L, Anion Gap 17H, Blood Urea Nitrogen 69H, Creatinine 3.3H, Estimat Glomerular Filtration Rate , Glucose Level 146H, Calcium Level 7.8L, Total Bilirubin 0.2, Aspartate Amino Transf (AST /SGOT) 22, Alanine Aminotransferase (ALT/SGPT) < 6L, Alkaline Phosphatase 134H, Total Protein 6.1L, Albumin 2.3L, Globulin 3.8, Albumin/Globulin Ratio 0.6L Height (Feet): 5 Height (Inches): 7.00 Weight (Pounds): 143 Objective General Appearance: WD/WN, no apparent distress Lines, tubes and drains: peripheral HEENT: normocephalic, atraumatic Neck: non-tender, normal alignment Respiratory/Chest: chest wall non-tender, lungs clear, normal breath sounds, no respiratory distress Cardiovascular/Chest: normal peripheral pulses, normal rate, regular rhythm Abdomen: normal bowel sounds, non tender Extremities: normal range of motion Skin Exam: normal pigmentation 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
[2018-10-12] VITALS: BP 141/67
[2018-10-12 04:00] VITALS: BP 155/77
[2018-10-12] MEDS: Sodium Citrate 30ml ORAL SCH ×2 (06:30→11:05)
[2018-10-12] MEDS: HydrALAZINE 50mg tab ORAL SCH (06:33)
--- NOTE | 2018-10-12 07:15 | NUR ---
HAND-OFF: Report given to Sheela VIRGEN. Plan of care endorsed.
--- NOTE | 2018-10-12 07:21 | NUR ---
NURSE NOTES: Report received from PARAM Pruitt. Pt is lying in semi-fowlers with no signs of distress. A+Ox1, denies pain/SOB. No IV site; MD aware and pt awaiting PICC placement this morning. Consent in the chart. Respirations are even and unlabored on room air. Bed is at lowest position, brakes engaged, siderails x2, bed alarm on, and call light within reach. Suprapubic catheter is patent and draining to gravity. Will continue to monitor.
[2018-10-12 08:00] VITALS: BP 147/62
[2018-10-12] MEDS: Benztropine 1mg tab ORAL SCH (08:31)
[2018-10-12] MEDS: Imdur 30mg tab ORAL SCH (08:31)
[2018-10-12] MEDS: Levodopa/Carbidopa 25/100 tab ORAL SCH (08:31)
[2018-10-12] MEDS: Aspirin Baby 81mg ORAL SCH (08:32)
[2018-10-12] MEDS: Carvedilol 25mg Tab ORAL SCH (08:32)
[2018-10-12] MEDS: Donepezil 10mg tab ORAL SCH (08:32)
[2018-10-12] MEDS: Nephrovite tab (Rena-Vite) ORAL SCH (08:32)
[2018-10-12] MEDS: Citalopram Hydrobromide 10mg Tab ORAL SCH (08:32)
[2018-10-12] MEDS: Heparin 5000 units/ml inj SUBQ SCH (08:33)
[2018-10-12] MEDS: Docusate 100mg cap ORAL SCH (08:33)
--- NOTE | 2018-10-12 08:43 | General Progress Note ---
Assessment/Plan Status: stable, progressing Assessment/Plan: 73 year old male with PMH of seizure d/o, urethral stricture s/p suprapubic catheter, CKD was transferred from [facility] for diarrhea and vomiting for past few days admitted for UTI #UTI in pt with suprabupic catheter #Urethral strictures s/p suprapubic catheter -abx changed to Meropenem (SNF resident) - cont until sensitivities return -monitor urinary output -f/u cultures -ID consult appreciated -PICC line today- - Patient has no family to consent. PICC insertion is medically urgent for the patient, two physician signed consent. -can DC back to SNF after placement #SEVEN on CKD - improved #Anion gap metabolic acidosis -likely prerenal 2/2 dehydration 2/2 diarrhea and vomiting -CTM -avoid nephrotoxic medications -gentle hydration -nephrology consulted - Dr. Sanchez (also PCP) - Dr. Rodriguez covering and notes reviewed. - Baseline creatinine last discharge 2.5 - Cont Bicitra PO, discussed with nephrology, will hold off on IV bicarbonate since acidemia improved #Hx of cardiomyopathy -cardiology consult appreciated -echo reviewed #DM -ISS -DM diet -FSG QAC and HS #Seizures -cont home meds -seizure precautions #Dementia -delirium precautions -Neuro consulted # Disposition Resident at [facility] PT mobility protocol and assessment requested Patient reports being ambulatory prior to admission Full code DVT: HSq Subjective Date patient seen: Oct 12, 2018 Allergies: Coded Allergies: NO KNOWN DRUG ALLERGIES (Unverified Allergy, Unknown, 04/11/14) Subjective NO acute overnight events, pt with no complaints, creatinine improved. picc placement then can DC back with meropenem Objective Last 24 Hour Vital Signs Date Time Temp Pulse Resp B/P (MAP) Pulse Ox O2 Delivery O2 Flow Rate FiO2 10/12/18 08:32 70 147/62 10/12/18 08:32 70 147/62 10/12/18 08:31 147/62 10/12/18 08:00 98.0 70 20 147/62 (90) 98 10/12/18 06:33 152/77 10/12/18 04:00 98.0 72 18 155/77 (103) 99 10/12/18 03:29 62 10/12/18 00:00 98.1 61 18 141/67 (91) 99 10/11/18 23:29 63 7/9/19 21:26 159/77 10/11/18 21:25 76 159/77 10/11/18 21:00 Room Air Room Air 10/11/18 20:00 97.7 76 18 140/60 (86) 98 10/11/18 19:41 72 10/11/18 16:00 75 10/11/18 16:00 98.3 70 20 132/75 (94) 98 10/11/18 13:04 108/43 10/11/18 12:00 97.3 66 20 108/43 (64) 96 10/11/18 12:00 59 10/11/18 09:24 79 132/65 10/11/18 09:24 79 132/65 10/11/18 09:24 132/65 10/11/18 09:00 Room Air Room Air Intake and Output 10/11/18 10/12/18 19:00 07:00 Intake Total 540 ml Output Total 500 ml 400 ml Balance -500 ml 140 ml Intake Oral 540 ml Output Urine Total 500 ml 400 ml # Bowel Movements 5 Height (Feet): 5 Height (Inches): 7.00 Weight (Pounds): 143 Objective General Appearance: WD/WN, no apparent distress Lines, tubes and drains: peripheral HEENT: normocephalic, atraumatic Neck: non-tender, normal alignment Respiratory/Chest: chest wall non-tender, lungs clear, normal breath sounds, no respiratory distress Cardiovascular/Chest: normal peripheral pulses, normal rate, regular rhythm Abdomen: normal bowel sounds, non tender Extremities: normal range of motion Skin Exam: normal pigmentation 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
[2018-10-12] MEDS ORDERED: Lidocaine 1% Plain 30 ml INJ PRN (08:45)
[2018-10-12] MEDS ORDERED: Heparin1,000 units/500ml Premix(Conc:2 units/ml) IV PRN (08:45)
[2018-10-12 08:51] LABS: BASOPHILS % (AUTO) 2.4 % (0.0-2.0); EOSINOPHILS % (AUTO) 6.4 % (0.0-3.0); HEMATOCRIT 29.2 % (42.0-52.0); HEMOGLOBIN 9.1 G/DL (14.2-18.0); LYMPHOCYTES % (AUTO) 19.3 % (20.0-45.0); MEAN CORPUSCULAR VOLUME 86 FL (80-99); PLATELET COUNT 282 K/UL (150-450); RED CELL DISTRIBUTION WIDTH 16.6 % (11.6-14.8); WHITE BLOOD COUNT 6.8 K/UL (4.8-10.8)
--- NOTE | 2018-10-12 09:15 | Cardiology Progress Note ---
Assessment/Plan Status: stable Assessment/Plan Assessment/Plan: Assessment/Plan UTI in pt with suprapubic catheter Urethral strictures s/p suprapubic catheter SEVEN on CKD Hx of cardiomyopathy LVEF 45% DM Seizures Dementia -Echocardiogram reviewed LVEF 45% -Outpatient stress test, CT showed atherosclerotic disease, no chest pain currently -Statin -Aspirin -Continue norvasc -Hold ACEI/ARB given SEVEN -Hyponatremia resolved -Continue meropenem for UTI, adjust per ID -Will need PICC line -Ok to d/c after PICC Subjective Cardiovascular: Reports: no symptoms Respiratory: Reports: no symptoms Gastrointestinal/Abdominal: Reports: no symptoms Genitourinary: Reports: no symptoms Subjective No acute events, patient refusing meds and vitals. Echo with LVEF 45%, on meropenem, no fevers, NA now normal Awaiting PICC line placement for abx Objective Last 24 Hour Vital Signs Date Time Temp Pulse Resp B/P (MAP) Pulse Ox O2 Delivery O2 Flow Rate FiO2 10/12/18 09:00 Room Air Room Air 10/12/18 08:32 70 147/62 10/12/18 08:32 70 147/62 10/12/18 08:31 147/62 10/12/18 08:00 98.0 70 20 147/62 (90) 98 10/12/18 06:33 152/77 10/12/18 04:00 98.0 72 18 155/77 (103) 99 10/12/18 03:29 62 10/12/18 00:00 98.1 61 18 141/67 (91) 99 10/11/18 23:29 63 10/11/18 21:26 159/77 10/11/18 21:25 76 159/77 10/11/18 21:00 Room Air Room Air 10/11/18 20:00 97.7 76 18 140/60 (86) 98 10/11/18 19:41 72 10/11/18 16:00 75 10/11/18 16:00 98.3 70 20 132/75 (94) 98 10/11/18 13:04 108/43 10/11/18 12:00 97.3 66 20 108/43 (64) 96 10/11/18 12:00 59 10/11/18 09:24 79 132/65 10/11/18 09:24 79 132/65 10/11/18 09:24 132/65 General Appearance: no apparent distress EENT: PERRL/EOMI, normal ENT inspection, TMs normal, pharynx normal Neck: non-tender, normal alignment, supple, normal inspection, no JVD Rhythm: NSR Cardiovascular: normal peripheral pulses, normal rate, regular rhythm Respiratory/Chest: chest wall non-tender, lungs clear, normal breath sounds, no respiratory distress, no accessory muscle use Abdomen: normal bowel sounds, non tender, soft, no organomegaly, no mass Extremities: normal range of motion, non-tender, normal inspection, no calf tenderness, no swelling 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, no motor/sensory deficits Intake and Output 10/11/18 10/12/18 19:00 07:00 Intake Total 540 ml Output Total 500 ml 400 ml Balance -500 ml 140 ml Intake Oral 540 ml Output Urine Total 500 ml 400 ml # Bowel Movements 5 Laboratory Tests Test 10/12/18 07:34 White Blood Count 6.8 K/UL (4.8-10.8) Red Blood Count 3.40 M/UL (4.70-6.10) L Hemoglobin 9.1 G/DL (14.2-18.0) L Hematocrit 29.2 % (42.0-52.0) L Mean Corpuscular Volume 86 FL (80-99) Mean Corpuscular Hemoglobin 26.7 PG (27.0-31.0) L Mean Corpuscular Hemoglobin Concent 31.1 G/DL (32.0-36.0) L Red Cell Distribution Width 16.6 % (11.6-14.8) H Platelet Count 282 K/UL (150-450) Mean Platelet Volume 5.1 FL (6.5-10.1) L Neutrophils (%) (Auto) 55.0 % (45.0-75.0) Lymphocytes (%) (Auto) 19.3 % (20.0-45.0) L Monocytes (%) (Auto) 17.0 % (1.0-10.0) H Eosinophils (%) (Auto) 6.4 % (0.0-3.0) H Basophils (%) (Auto) 2.4 % (0.0-2.0) H Sodium Level Pending Potassium Level Pending Chloride Level Pending Carbon Dioxide Level Pending Blood Urea Nitrogen Pending Creatinine Pending Estimat Glomerular Filtration Rate Pending Glucose Level Pending Uric Acid Pending Calcium Level Pending Phosphorus Level Pending Magnesium Level Pending Total Bilirubin Pending Aspartate Amino Transf (AST/SGOT) Pending Alanine Aminotransferase (ALT/SGPT) Pending Alkaline Phosphatase Pending C-Reactive Protein, Quantitative Pending Pro-B-Type Natriuretic Peptide Pending Total Protein Pending Albumin Pending Globulin Pending Microbiology Date/Time Source Procedure Growth Status 10/10/18 18:30 Indwelling Cath Urine Culture - Preliminary NO GROWTH AFTER 24 HOURS Resulted Eric Arce MD Oct 12, 2018 09:15
[2018-10-12 09:40] LABS: ALANINE AMINOTRANSFERASE < 6 U/L (12-78); ALBUMIN 2.2 G/DL (3.4-5.0); ALBUMIN/GLOBULIN RATIO 0.6 (1.0-2.7); ALKALINE PHOSPHATASE 132 U/L (46-116); ANION GAP 13 mmol/L (5-15); ASPARTATE AMINO TRANSFERASE 23 U/L (15-37); BILIRUBIN,TOTAL 0.2 MG/DL (0.2-1.0); BLOOD UREA NITROGEN 59 mg/dL (7-18); CALCIUM 7.6 MG/DL (8.5-10.1); CARBON DIOXIDE 22 MMOL/L (21-32); CHLORIDE 103 MMOL/L (98-107); CREATININE 2.9 MG/DL (0.55-1.30); PHOSPHORUS 3.4 MG/DL (2.5-4.9); POTASSIUM 3.4 MMOL/L (3.5-5.1); SODIUM 138 MMOL/L (136-145)
--- NOTE | 2018-10-12 10:28 | NUR ---
RADIOLOGY: LT UPPER EXTREMITY PICC PLACED
[2018-10-12] MEDS ORDERED: MEROPENEM-500 MG/50 IV (10:52)
[2018-10-12] MEDS ORDERED: ACETAMINOPHEN325 M1 ORAL (10:52)
[2018-10-12] MEDS ORDERED: RENVELA800 MG ORAL (10:52)
[2018-10-12] MEDS ORDERED: APRESOLINE50 MG ORAL (10:52)
[2018-10-12] MEDS ORDERED: ASPIRIN81 MG ORAL (10:52)
[2018-10-12] MEDS ORDERED: NORVASC2.5 MG ORAL (10:52)
--- NOTE | 2018-10-12 11:00 | NUR ---
NURSE NOTES: Pt has Left upper arm PICC. Merrem started. Discharge order in. Pt to be dced with PICC line and continue Merrem for 6 more days.
--- NOTE | 2018-10-12 11:02 | Diagnostic Imaging Report ---
Indications: Needs long-term IV access Technique: Ultrasound confirms patent compressible left basilic vein. Total sterile technique, including sterile probe cover and sterile gel, hat, mask, sterile gown, large sterile drape, and preparation with 2% chlorhexidine utilized. Local anesthesia with 1% lidocaine. Under real-time ultrasound guidance, puncture basilic vein using 21-gauge needle, documented and archived, passage 0.018 guidewire under direct fluoroscopy, which was used to determine appropriate catheter length, exchange for 4 Cameroonian peel-away sheath. 4 Cameroonian Bard dual-lumen power PICC cut to 45 cm. It was inserted through the peel-away sheath. Peel-away sheath and guidewire removed. Catheter fixed to the skin. Both catheter ports aspirated and flushed. Patient tolerated procedure well, without immediate complication. Digital radiograph documents satisfactory catheter tip position, at the cavoatrial junction. Total fluoroscopy time 7.3 seconds. Total dose area product 0.6 mGym2 Total number of images: 1 Impression: Successful placement of left basilic PICC under sonographic and fluoroscopic guidance, as described above.
--- NOTE | 2018-10-12 11:07 | Nephrology Progress Note ---
Assessment/Plan Problem List: (1) Renal failure (ARF), acute on chronic (2) Cardiomyopathy (3) Hypertensive kidney disease (4) Anemia (5) Hyponatremia (6) Metabolic acidosis Assessment UTI (urinary tract infection) HypoNatremia , Na down to 128 today Renal failure (ARF), acute on chronic / serum Cr upon last discharge was 3.5- today is 3.4 almost unchanged Prostate hypertrophy / Supra pubic cath Bilateral hydronephrosis Urethral stricture Cardiomyopathy ej Fx 45% Hypertensive kidney disease Anemia HypoAlbuminemia Plan Plan: has Picc line today Adjust BP meds and Epogen doses monitor lytes and renal parameters PO Bicitra renal diet Phos binders IV venofer per orders Dc Planning? Subjective ROS Limited/Unobtainable: No Constitutional: Reports: malaise, weakness Objective Objective Last 24 Hour Vital Signs Date Time Temp Pulse Resp B/P (MAP) Pulse Ox O2 Delivery O2 Flow Rate FiO2 10/12/18 09:00 Room Air Room Air 10/12/18 08:32 70 147/62 10/12/18 08:32 70 147/62 10/12/18 08:31 147/62 10/12/18 08:00 98.0 70 20 147/62 (90) 98 10/12/18 08:00 83 10/12/18 06:33 152/77 10/12/18 04:00 98.0 72 18 155/77 (103) 99 10/12/18 03:29 62 10/12/18 00:00 98.1 61 18 141/67 (91) 99 10/11/18 23:29 63 10/11/18 21:26 159/77 10/11/18 21:25 76 159/77 10/11/18 21:00 Room Air Room Air 10/11/18 20:00 97.7 76 18 140/60 (86) 98 10/11/18 19:41 72 10/11/18 16:00 75 10/11/18 16:00 98.3 70 20 132/75 (94) 98 10/11/18 13:04 108/43 10/11/18 12:00 97.3 66 20 108/43 (64) 96 10/11/18 12:00 59 Intake and Output 10/11/18 10/12/18 19:00 07:00 Intake Total 540 ml Output Total 500 ml 400 ml Balance -500 ml 140 ml Intake Oral 540 ml Output Urine Total 500 ml 400 ml # Bowel Movements 5 Current Medications Medications (Trade) Dose Ordered Sig/Thu Route PRN Reason Start Time Stop Time Status Last Admin Dose Admin Acetaminophen (Tylenol) 650 mg Q6H PRN ORAL Mild Pain/Temp > 100.5 10/05/18 17:45 11/04/18 17:44 Amlodipine Besylate (Norvasc) 2.5 mg DAILY ORAL 10/11/18 09:00 11/05/18 08:59 10/12/18 08:32 Aspirin (ASA) 81 mg DAILY ORAL 10/06/18 09:00 11/05/18 08:59 10/12/18 08:32 Benztropine Mesylate (Cogentin) 1 mg BID ORAL 10/05/18 18:00 11/04/18 17:59 10/12/18 08:31 Carbidopa/Levodopa (Sinemet 25/100) 1 tab THREE TIMES A DAY ORAL 10/05/18 18:00 11/04/18 17:59 10/12/18 08:31 Carvedilol (Coreg) 25 mg EVERY 12 HOURS ORAL 10/07/18 21:00 11/06/18 20:59 10/12/18 08:32 Chlorhexidine Gluconate (Denita-Hex 2%) 1 applic DAILY@1999 TOPIC 10/12/18 20:00 11/11/18 19:59 Chlorhexidine Gluconate (Denita-Hex 2%) 1 applic DAILY@1999 TOPIC 10/09/18 20:00 11/08/18 19:59 10/09/18 20:38 Citalopram Hydrobromide (celeXA) 20 mg DAILY ORAL 10/06/18 09:00 11/05/18 08:59 10/12/18 08:32 Docusate Sodium (Colace) 100 mg TID ORAL 10/08/18 09:00 11/05/18 08:59 10/11/18 13:05 Donepezil HCl (Aricept) 10 mg DAILY ORAL 10/06/18 09:00 11/05/18 08:59 10/12/18 08:32 Epoetin Zaid (Epoetin Zaid-EPBX(NON ESRD)) 10,000 unit WED-WED-WED SUBQ 10/12/18 21:00 11/04/18 20:59 Heparin Sodium (Porcine) (Heparin 5000 units/ml) 5,000 units EVERY 12 HOURS SUBQ 10/05/18 21:00 11/04/18 20:59 10/10/18 08:48 Heparin Sodium/ Sodium Chloride (Heparin 1000 units/500ml Premix) 1,000 unit ONCE PRN IV picc line placement 10/12/18 08:45 10/14/18 08:44 Hydralazine HCl (Apresoline) 50 mg Q8HR ORAL 10/10/18 14:00 11/04/18 21:59 10/12/18 06:33 Isosorbide Mononitrate (Imdur) 60 mg DAILY ORAL 10/06/18 09:00 11/05/18 08:59 10/12/18 08:31 Lidocaine HCl (Xylocaine 1% 30ml) 30 ml ONCE PRN INJ picc line placement 10/12/18 08:45 10/14/18 08:44 Lorazepam (Ativan) 1 mg Q6H PRN ORAL For Anxiety 10/07/18 09:15 10/14/18 09:14 10/07/18 22:14 Meropenem 500 mg/ Sodium Chloride 55 ml @ 110 mls/hr Q12H IVPB 10/08/18 12:00 10/13/18 11:59 10/09/18 11:36 Ondansetron HCl (Zofran) 4 mg Q6H PRN IVP Nausea & Vomiting 10/07/18 13:15 11/06/18 13:14 10/08/18 23:01 Oxycodone/ Acetaminophen (Percocet 5-325) 1 tab Q6H PRN ORAL Severe Pain (Pain Scale 7-10) 10/05/18 17:45 10/12/18 17:44 Phenytoin (Dilantin) 300 mg BEDTIME ORAL 10/11/18 21:00 11/10/18 20:59 10/11/18 21:26 Potassium Chloride (K-Dur) 40 meq ONCE ORAL 10/12/18 11:00 10/12/18 12:00 Pravastatin Sodium (Pravachol) 20 mg BEDTIME ORAL 10/07/18 21:00 11/04/18 20:59 10/11/18 21:24 Sevelamer Carbonate (Renvela) 800 mg THREE TIMES A DAY ORAL 10/09/18 09:00 11/08/18 08:59 10/12/18 08:31 Sodium Citrate (Bicitra) 30 ml EVERY 6 HOURS ORAL 10/11/18 18:00 11/08/18 00:00 10/12/18 06:30 Vitamin B Complex/ Vit C/Folic Acid (Nephrovite) 1 tab DAILY ORAL 10/06/18 09:00 11/05/18 08:59 10/12/18 08:32 Laboratory Tests 10/12/18 07:34: White Blood Count 6.8, Red Blood Count 3.40L, Hemoglobin 9.1L, Hematocrit 29.2L , Mean Corpuscular Volume 86, Mean Corpuscular Hemoglobin 26.7L, Mean Corpuscular Hemoglobin Concent 31.1L, Red Cell Distribution Width 16.6H, Platelet Count 282, Mean Platelet Volume 5.1L, Neutrophils (%) (Auto) 55.0, Lymphocytes (%) (Auto) 19.3L, Monocytes (%) (Auto) 17.0H, Eosinophils (%) (Auto ) 6.4H, Basophils (%) (Auto) 2.4H, Sodium Level 138, Potassium Level 3.4L, Chloride Level 103, Carbon Dioxide Level 22, Anion Gap 13, Blood Urea Nitrogen 59H, Creatinine 2.9H, Estimat Glomerular Filtration Rate , Glucose Level 122H, Uric Acid 7.6H, Calcium Level 7.6L, Phosphorus Level 3.4, Magnesium Level 1.9, Total Bilirubin 0.2, Aspartate Amino Transf (AST/SGOT) 23, Alanine Aminotransferase (ALT/SGPT) < 6L, Alkaline Phosphatase 132H, C-Reactive Protein , Quantitative 1.2H, Pro-B-Type Natriuretic Peptide 02193R, Total Protein 5.8L, Albumin 2.2L, Globulin 3.6, Albumin/Globulin Ratio 0.6L Height (Feet): 5 Height (Inches): 7.00 Weight (Pounds): 143 General Appearance: no apparent distress Respiratory/Chest: decreased breath sounds Abdomen: soft Sukhdeep Rodriguez MD Oct 12, 2018 11:07
[2018-10-12] MEDS: Meropenem 500mg/NS 55ml IVPB SCH ×4 (11:14)
--- NOTE | 2018-10-12 11:19 | NUR ---
DISCHARGE PLANNED SEE DISCHARGE PLANNING INTERVENTION FOR DETAILS
--- NOTE | 2018-10-12 11:44 | NUR ---
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
--- NOTE | 2018-10-12 11:45 | NUR ---
NURSE NOTES: Nurse report given to PARAM Branham at [facility] about patient.
[2018-10-12 12:00] VITALS: BP 138/63
--- NOTE | 2018-10-12 13:38 | NUR ---
NURSE NOTES: Report given to [facility]. Wristband and monitor removed. Patient is going with PICC line. Pt is in stable condition, VSS. Pt discharged safely with ambulance personnel via gurney.
[2018-10-12] MEDS ORDERED: Dyna-Hex 2% Top Sol 2oz TOPIC SCH (20:00)
[2018-10-12] MEDS ORDERED: Epoetin Alfa-EPBX (NON ESRD)10,000 unit/ml vial SUBQ SCH (21:00)
--- NOTE | 2018-10-12 21:15 | Progress Note ---
DATE: 10/12/2018 SUBJECTIVE: The patient is having episodes of anxiety, agitation, and memory impairment. MENTAL STATUS EXAMINATION: The patient is alert and oriented to time, self, and place. Mood is depressed. Affect is constricted. Congruent with mood. Thought process is concrete. Thought content, no suicidal or homicidal ideation. Memory is impaired. ASSESSMENT: Stable. PLAN: We will continue current medication. Provide the patient with reality oriented and supportive therapy. Paulina Krishnan M.D. DR: KAYLENE JOB#: [id number] CC:
--- NOTE | 2018-10-21 11:54 | Discharge Summary ---
Discharge Summary Discharge Summary _ DATE OF ADMISSION: 10/05/2018 DATE OF DISCHARGE: 10/12/2018 DISCHARGED BY: Dr. Giselle Whitlock CONSULTANTS: Dr. Paulina Sandoval [facility] COURSE: Patient is a 73-year-old male, with past medical history of seizure disorder, urethral stricture status post suprapubic catheter, and CKD, was transferred from SNF due to diarrhea and vomiting for the past few days. He denied fever or chills. Denied supra pubic pain, abdominal pain, weakness. Denied chest pain or shortness of breath. On evaluation at the ED, vital signs were stable. Patient was afebrile. Blood work did not show any leukocytosis. Hemoglobin 11, hematocrit 36. BUN was elevated to 78 and creatinine to 4.0. Urinalysis showed +3 protein, +2 blood, negative nitrite, +3 leukocyte esterase, 5-10 urine RBC, TNTC urine WBC. EKG was in normal sinus rhythm with no acute changes. Chest x-ray did not show any acute disease. CT of the abdomen and pelvis showed chronic cystitis/urethritis with signs of chronic inflammation/infection. Mild hydronephrosis. He was given IV hydration. He was started empirically on Rocephin. He was then admitted for evaluation of UTI and renal failure. He was placed on seizure and delirium precautions. He was continued on gentle IV hydration. Patient has history of CKD and had evidence of acute kidney injury, likely prerenal secondary to dehydration due to diarrhea and vomiting. Antibiotic was changed to cefepime. Blood glucose was monitored and was placed on insulin sliding scale. He was given heparin subcut for DVT prophylaxis. Slider Assembler was consulted. Patient has history of cardiomyopathy. He was given aspirin and statin. He was continued on Norvasc. Unable to give RIGOBERTO/ARB due to SEVEN. Echocardiogram showed left ventricular ejection fraction of 45%. Patient does not have any chest pain. He was recommended outpatient stress test. CT showed atherosclerotic disease. Urine culture showed growth of gram-negative organisms. Patient had complicated gram-negative UTI with history of suprapubic catheter. ID was consulted. Cefepime dose was increased to 1 g IV every 24 hours. He was anxious and was agitated. Psychiatrist was consulted. Patient was started on Celexa 20 mg every morning. Patient had hyponatremia. He was given hypertonic saline solution. He was given Bicitra. Kidney function was monitored Patient had anemia and was given Epogen and IV iron. Urine culture showed growth of ESBL E. coli. Antibiotic was changed to meropenem. Patient was tachycardic. He was given a dose of p.o. digoxin 0.25 mg. CO2 8. Anion gap 27. ABG showed metabolic acidosis. He was ordered sodium bicarb, however was not given due to lack of IV access. Sodium normalized. Acidemia eventually improved. Patient did not have any IV access, despite multiple attempts to insert a peripheral IV. Unable to give Macrobid as it was contraindicated in renal failure and Bactrim will likely worsen renal failure. There was no IM Carbapenem available. Patient required PICC line insertion. PICC line was inserted to the left arm. Patient was discharged back to SNF to continue antibiotics. FINAL DIAGNOSES: Complicated UTI in patient with suprapubic catheter ESBL E. coli UTI Acute kidney injury on CKD Anion gap metabolic acidosis Cardiomyopathy Diabetes mellitus Seizure disorder Dementia DISPOSITION: Patient was discharged to a SNF. DISCHARGE MEDICATIONS: Refer to Discharge Medication List. I have been assigned to complete a discharge summary on this account, I was not involved with the patient's management.--JANEL Cross Jacqueline Robles NP Oct 21, 2018 11:54
== END 2018-10-12 13:29 | DRG 690 ==
LOC: EDBD 11:41 → EMR 12:58 → 2E 13:48 → EDBEDREQ 15:14
PROC: 02HV33Z Insertion of Infusion Device into Superior Vena Cava, Percutaneous Approach (ICD-10-PCS; principal; 2018-10-12)
DX: N39.0 Urinary tract infection, site not specified (principal); E87.1 Hypo-osmolality and hyponatremia; I42.9 Cardiomyopathy, unspecified; K86.1 Other chronic pancreatitis; N17.9 Acute kidney failure, unspecified; F02.81 Dementia in other diseases classified elsewhere, unspecified severity, with behavioral disturbance; E87.2 Acidosis; I12.9 Hypertensive chronic kidney disease with stage 1 through stage 4 chronic kidney disease, or unspecified chronic kidney disease; N18.9 Chronic kidney disease, unspecified; E11.22 Type 2 diabetes mellitus with diabetic chronic kidney disease; R56.9 Unspecified convulsions; R31.0 Gross hematuria; N13.30 Unspecified hydronephrosis; I25.2 Old myocardial infarction; N40.1 Benign prostatic hyperplasia with lower urinary tract symptoms; R33.8 Other retention of urine; G20 Parkinson's disease; F02.80 Dementia in other diseases classified elsewhere, unspecified severity, without behavioral disturbance, psychotic disturbance, mood disturbance, and anxiety; G40.909 Epilepsy, unspecified, not intractable, without status epilepticus; N35.919 Unspecified urethral stricture, male, unspecified site; N30.20 Other chronic cystitis without hematuria; N28.89 Other specified disorders of kidney and ureter; B96.20 Unspecified Escherichia coli [E. coli] as the cause of diseases classified elsewhere; Z16.12 Extended spectrum beta lactamase (ESBL) resistance; Z79.82 Long term (current) use of aspirin; Z79.4 Long term (current) use of insulin
CPT/HCPCS: 36415; 36569; 36600; 71045; 74176; 76937; 80048; 80053; 80061; 80185; 81003; 82550; 82553; 82607; 82728; 82746; 82803; 82977; 83036; 83540; 83550; 83605; 83735; 83880; 83930; 84100; 84443; 84484; 84550; 85025; 85610; 86140; 87040; 87081; 87086; 87181; 93005; 93306; 96361; 96365; 99285; J2405; J8499

== ENCOUNTER 2019-05-16 09:28 | Inpatient (IN) | payer MEDICARE, OTHER ==
[~2019-05-16] VITALS: Ht 172.7 cm; Wt 59.4 kg
[~2019-05-16 09:28] MED LIST changes: +COLACE100 MG GT; +MEROPENEM-500 MG/50 IV; +NORVASC2.5 MG ORAL; +RENVELA800 MG ORAL; +SINEMET 25-1001 EAC1 GT; -SINEMET 25-1001 EAC1 ORAL
[2019-05-16 09:35] VITALS: BP 152/94
[2019-05-16] MEDS ORDERED: LISINOPRIL10 MG ORAL (09:38)
[2019-05-16] MEDS ORDERED: HUMULIN R100 UNIT/1 SUBQ (09:38)
[2019-05-16] MEDS ORDERED: VITAMIN B COMP1 EAC2 GT (09:38)
[2019-05-16] MEDS ORDERED: SENNA8.6 M2 GT (09:41)
[2019-05-16] MEDS ORDERED: ATIVAN0.5 MG ORAL (09:41)
[2019-05-16] MEDS ORDERED: MIDODRINE HCL2.5 MG ORAL (09:41)
[2019-05-16] MEDS ORDERED: IPRAT-ALBUT 0.5-3 ML IH (09:41)
--- NOTE | 2019-05-16 10:02 | Emergency Room Report ---
History of Present Illness General Chief Complaint: Upper Respiratory Illness Source: Patient, Medical Record, EMS Present Illness HPI Patient presents with complaints of shortness of breath cough and congestion Patient himself is a poor historian on questioning Does not recall why he was brought to the emergency room Per nuclear waste management engineer report nursing facility reports the patient has had increased cough also appearance of shortness of breath Patient is a dialysis patient and is supposed to get dialysis at 130 today Allergies: Coded Allergies: NO KNOWN DRUG ALLERGIES (Unverified Allergy, Unknown, 04/11/14) Patient History Past Medical History: see triage record Reviewed Nursing Documentation: PMH: Agreed; PSxH: Agreed Nursing Documentation-PMH Past Medical History: No History, Except For Hx Cardiac Problems: Yes - CHF, MS, Marasmic Kwashiorkor, hyperlipidemia Hx Hypertension: Yes - Anemia Hx Pacemaker: No Hx Asthma: No Hx COPD: Yes Hx Diabetes: Yes - DM II Hx Cancer: No Hx Gastrointestinal Problems: Yes - Dysphagia, G-tube, Hx Dialysis: Yes - BPH History Of Psychiatric Problem: Yes - Major depression Hx Neurological Problems: Yes - Parkinsons disease, Dementia,MS Hx Cerebrovascular Accident: No Hx Parkinson's Disease: Yes Hx Seizures: Yes Hx Epilepsy: Yes Hx Weakness: Yes Review of Systems All Other Systems: limited - Other than the ones mentioned in the history of present illness all others are reviewed however they do stay limited due to the patient's mental status Physical Exam Vital Signs Date Time Temp Pulse Resp B/P (MAP) Pulse Ox O2 Delivery O2 Flow Rate FiO2 05/16/19 09:28 98.1 94 18 152/94 (113) 95 Room Air Sp02 EP Interpretation: reviewed, normal General Appearance: no apparent distress Head: normocephalic, atraumatic Eyes: bilateral eye PERRL, bilateral eye EOMI ENT: hearing grossly normal, EOM grossly intact Neck: supple Respiratory: no respiratory distress, no retraction, crackles - both lower lobes Cardiovascular #1: regular rate, rhythm Gastrointestinal: non tender, soft Musculoskeletal: other - Moving both upper extremities equally Neurologic: alert, other - GCS 14 with mild confusion Psychiatric: normal inspection Skin: no rash Lymphatic: normal inspection Medical Decision Making Diagnostic Impression: Primary Impression: Upper respiratory infection Additional Impressions: Hypertensive kidney disease Renal failure (ARF), acute on chronic ER Course Patient is a fairly complex patient with multiple differential to consideration including but not limited to cardiac cardiopulmonary and vascular emergencies Patient's evaluation also stays somewhat limited given his mental status and ability to provide input Patient's x-ray is abnormal with a right-sided large pleural effusion There is some evidence of congestion as well patient does have dialysis and is due for dialysis And patient will require more urgent intervention Labs Test 05/16/19 10:45 White Blood Count 10.3 K/UL (4.8-10.8) Red Blood Count 3.28 M/UL (4.70-6.10) Hemoglobin 10.5 G/DL (14.2-18.0) Hematocrit 31.5 % (42.0-52.0) Mean Corpuscular Volume 96 FL (80-99) Mean Corpuscular Hemoglobin 32.1 PG (27.0-31.0) Mean Corpuscular Hemoglobin Concent 33.4 G/DL (32.0-36.0) Red Cell Distribution Width 15.4 % (11.6-14.8) Platelet Count 487 K/UL (150-450) Mean Platelet Volume 5.2 FL (6.5-10.1) Neutrophils (%) (Auto) 79.3 % (45.0-75.0) Lymphocytes (%) (Auto) 9.9 % (20.0-45.0) Monocytes (%) (Auto) 6.5 % (1.0-10.0) Eosinophils (%) (Auto) 3.1 % (0.0-3.0) Basophils (%) (Auto) 1.2 % (0.0-2.0) Sodium Level 135 MMOL/L (136-145) Potassium Level 3.9 MMOL/L (3.5-5.1) Chloride Level 96 MMOL/L (98-107) Carbon Dioxide Level 26 MMOL/L (21-32) Anion Gap 13 mmol/L (5-15) Blood Urea Nitrogen 107 mg/dL (7-18) Creatinine 4.7 MG/DL (0.55-1.30) Estimat Glomerular Filtration Rate mL/min (>60) Glucose Level 144 MG/DL (74-106) Hemoglobin A1c 6.5 % (4.3-6.0) Calcium Level 8.5 MG/DL (8.5-10.1) Total Bilirubin 0.2 MG/DL (0.2-1.0) Aspartate Amino Transf (AST/SGOT) 41 U/L (15-37) Alanine Aminotransferase (ALT/SGPT) 11 U/L (12-78) Alkaline Phosphatase 123 U/L (46-116) Troponin I 0.059 ng/mL (0.000-0.056) Total Protein 8.3 G/DL (6.4-8.2) Albumin 2.4 G/DL (3.4-5.0) Globulin 5.9 g/dL Albumin/Globulin Ratio 0.4 (1.0-2.7) Lipase 57 U/L (73-393) EKG Diagnostic Results Rate: normal Rhythm: NSR ST Segments: other - Nonspecific ST and T wave changes Rhythm Strip Diag. Results EP Interpretation: yes Rate: 78 Rhythm: NSR, no PVC's, no ectopy Chest X-Ray Diagnostic Results Chest X-Ray Diagnostic Results : Chest X-Ray Ordered: Yes # of Views/Limited/Complete: 1 View Indication: Chest Pain EP Interpretation: Yes Interpretation: no pneumothorax, other - Large right-sided effusion, pulmonary congestion Impression: Other - Large right-sided effusion pulmonary congestion Electronically Signed by: Lola Hamm DO Last Vital Signs Date Time Temp Pulse Resp B/P (MAP) Pulse Ox O2 Delivery O2 Flow Rate FiO2 05/16/19 09:28 98.1 94 18 152/94 (113) 95 Room Air Status: improved Disposition: ADMITTED INPATIENT Condition: Serious Referrals: Darrius Mane MD (PCP) Lola Hamm DO May 16, 2019 10:02
--- NOTE | 2019-05-16 10:31 | Diagnostic Imaging Report ---
. Indication: Shortness of breath Technique: One view of the chest Comparison: 70 06/22/2018 Findings: Interim placement left jugular tunneled dialysis catheter. Interim development of bilateral diffuse interstitial and airspace edema versus infiltrates. There is suggestion of a moderate to large pleural effusion on the right. The heart size is normal. Impression: Bilateral diffuse interstitial and airspace edema versus infiltrates, new since prior study of October 2018 Large right pleural effusion Interim tunneled dialysis catheter placed
--- NOTE | 2019-05-16 10:55 | NUR ---
ED Nurse Note: Patient YIMI from [facility] d/t staff calling 911 stating the patient was in asystole. Per EMS, patient was AxO x 4, was not in asystole or cardiac arrest. Only thing stated was that patient had some congestion in the lungs. Patient AxO x 2, no s/s of acute distress. Patient on the teletypesetter monitor, blood sent to lab.
[2019-05-16 11:29] LABS: BASOPHILS % (AUTO) 1.2 % (0.0-2.0); EOSINOPHILS % (AUTO) 3.1 % (0.0-3.0); HEMATOCRIT 31.5 % (42.0-52.0); HEMOGLOBIN 10.5 G/DL (14.2-18.0); LYMPHOCYTES % (AUTO) 9.9 % (20.0-45.0); MEAN CORPUSCULAR VOLUME 96 FL (80-99); MONOCYTES % (AUTO) 6.5 % (1.0-10.0); NEUTROPHILS % (AUTO) 79.3 % (45.0-75.0); PLATELET COUNT 487 K/UL (150-450); RED BLOOD COUNT 3.28 M/UL (4.70-6.10); RED CELL DISTRIBUTION WIDTH 15.4 % (11.6-14.8); WHITE BLOOD COUNT 10.3 K/UL (4.8-10.8)
[2019-05-16 11:39] LABS: ANION GAP 13 mmol/L (5-15); BLOOD UREA NITROGEN 107 mg/dL (7-18); CALCIUM 8.5 MG/DL (8.5-10.1); CARBON DIOXIDE 26 MMOL/L (21-32); CHLORIDE 96 MMOL/L (98-107); CREATININE 4.7 MG/DL (0.55-1.30); POTASSIUM 3.9 MMOL/L (3.5-5.1); SODIUM 135 MMOL/L (136-145)
[2019-05-16 11:42] LABS: ALANINE AMINOTRANSFERASE 11 U/L (12-78); ALBUMIN 2.4 G/DL (3.4-5.0); ALBUMIN/GLOBULIN RATIO 0.4 (1.0-2.7); ALKALINE PHOSPHATASE 123 U/L (46-116); ASPARTATE AMINO TRANSFERASE 41 U/L (15-37); BILIRUBIN,TOTAL 0.2 MG/DL (0.2-1.0)
--- NOTE | 2019-05-16 13:04 | NUR ---
ED Nurse Note: Report given to Gianfranco VIRGEN
[2019-05-16] MEDS ORDERED: Sennosides 8.6mg tab GT PRN (14:45)
[2019-05-16] MEDS ORDERED: Acetaminophen 650mg/20.3ml GT PRN (14:45)
[2019-05-16] MEDS ORDERED: Docusate 100mg/10ml Liq GT PRN (14:45)
[2019-05-16] MEDS ORDERED: Albuterol/Ipratropium 3ml neb HHN PRN (14:45)
[2019-05-16 16:00] VITALS: BP 129/73
[2019-05-16] MEDS ORDERED: NovoLOG Insulin Flexpen SUBQ SCH (16:30)
[2019-05-16] MEDS: NovoLOG Insulin Flexpen SUBQ SCH (18:00)
[2019-05-16] MEDS: LORazepam 0.5mg tab ORAL SCH (18:28)
[2019-05-16] MEDS: Lisinopril 10mg tab GT SCH (18:28)
[2019-05-16] MEDS: Levodopa/Carbidopa 25/100 tab GT SCH (18:28)
--- NOTE | 2019-05-16 18:45 | Consultation ---
DATE OF CONSULTATION: 05/16/2019 CONSULTING PHYSICIAN: Paulina Krishnan M.D. HISTORY OF PRESENT ILLNESS: This is a 74-year-old male from [facility]. I am well familiar to the patient from [facility]. The patient has a history of schizophrenia and has been on antipsychotics and currently stable presents with anxiety, irritable mood. PAST PSYCHIATRIC HISTORY: Schizophrenia, depression. PAST MEDICAL HISTORY: Significant for acute renal insufficiency, cardiomyopathy, UTI, and hypertension. ALLERGIES: No known drug allergies. SUBSTANCE ABUSE HISTORY: No known history of illicit drug use or alcohol. MENTAL STATUS EXAMINATION: The patient is alert, oriented times self, place, and situation. Mood is depressed and irritable. Affect is constricted, congruent with mood. Thought process is concrete. Thought content, no suicidal or homicidal ideation. Cognition is impaired. Insight and judgment is impaired. ASSESSMENT: 1. Major depressive disorder. 2. Cognitive impairment. PLAN: 1. Start the patient on Lexapro 10 mg in the morning. 2. Provide the patient with reality orientation and supportive therapy. 3. We will continue to follow and readjust the medications. Paulina Krishnan M.D. DR: EREN JOB#: [id number] CC:
--- NOTE | 2019-05-16 19:05 | NUR ---
OBTAINED REPORT FROM PARAM MILLIGAN. PT IN NO APPARENT DISTRESS.
[2019-05-16 20:00] VITALS: BP 152/90
--- NOTE | 2019-05-16 21:45 | History and Physical Report ---
DATE OF ADMISSION: 05/16/2019 HISTORY OF PRESENT ILLNESS: This is a 74-year-old white male who [facility] the jail from [facility] where he had hemodialysis, PEG tube placed, and G-tube placed. The patient was found unresponsive. Code Blue was called. The patient was transferred to the ER. The patient is currently more awake, alert, comfortable. The patient currently has no complaint. Lying in bed. . PAST MEDICAL HISTORY: Significant for diabetes, hypertension, end-stage renal disease, depression, dementia. MEDICATIONS: See the list. ALLERGIES: NKA. FAMILY HISTORY: Noncontributory. SOCIAL HISTORY: The [facility] is at jail. Mostly bedbound. REVIEW OF SYSTEMS: Cannot be obtained. PHYSICAL EXAMINATION: GENERAL: This is an elderly white male, currently lying and sleeping in bed. VITAL SIGNS: Blood pressure is 130/70, pulse 84, respirations 18 to 24, temperature no fever. SKIN: Good skin turgor. HEENT: NAD. CHEST: Bibasilar crackles. CARDIOVASCULAR: Regular rhythm. No gallop. No murmur. ABDOMEN: Soft. Positive bowel sounds. Nontender. EXTREMITIES: No edema. GENITOURINARY: Deferred. LABORATORY DATA: White counts are normal. BUN and creatinine high. ASSESSMENT: 1. Altered mental status. 2. Fluid overload. 3. End-stage renal disease. 4. Hypertension, uncontrolled. PLAN: We will admit him on telemetry bed. Hemodialysis. Continue home medications. Monitor blood pressure. Add clonidine p.r.n. Continue sliding scale, high-dose IV antibiotics. Continue pulmonary consult and consider also psychiatry consult. Terry Mane M.D. DR: THIEN JOB#: [id number] CC:
[2019-05-16] MEDS ORDERED: Piperacillin/Tazobactam 3.375 GM in NS 110 ML IVPB SCH (22:00)
[2019-05-16] MEDS: Zosyn 2.25 gm in D5W 55ml IV SCH (22:08)
[2019-05-17] VITALS: BP 145/90
[2019-05-17] MEDS: LORazepam 0.5mg tab ORAL SCH ×5 (00:30→23:28)
[2019-05-17] MEDS: NovoLOG Insulin Flexpen SUBQ SCH ×5 (00:39→23:22)
[2019-05-17 04:00] VITALS: BP 142/90
[2019-05-17] MEDS: Zosyn 2.25 gm in D5W 55ml IV SCH ×3 (05:58→21:06)
--- NOTE | 2019-05-17 07:05 | NUR ---
GAVE FULL REPORT TO DHAVAL VIRGEN. PT IN NO APPARENT DISTRESS.
--- NOTE | 2019-05-17 07:46 | NUR ---
NURSE NOTES: Pt in bed in low position, bed alarm on, call light next pt patient, pt Ox2 with confusion but friendly, pt is able to communicate needs, suprapubic patent, urine clear, tunneled cath in place, IV sight patent, labs WNL, G tube in place and running glucerna 1.2 at 50 with orders to flush Q6 150ml, denies pain, no s/s of distress or sob noted.
--- NOTE | 2019-05-17 07:46 | CDS Physician Query ---
Clarification is required for compliance, coding accuracy, and to reflect severity of illness for this patient Dear Dr. Paulina Krishnan M.D. Date: 05/17/2019 Circulation Man/CDS Name: Max Gillis This is a 74-year-old male from [facility]. I am well familiar to the patient from [facility]. The patient has a history of schizophrenia and has been on antipsychotics and currently stable presents with anxiety, irritable mood. "Altered Mental Status" documented in H&P Please indicate the nature and chronicity of the condition below: [] Metabolic Encephalopathy [] Toxic Encephalopathy [] Toxic - Metabolic Encephalopathy [] Encephalopathy, Other [] Dementia with Delirium [] Hypoxic encephalopathy [] Posterior reversible encephalopathy syndrome [] Other: [] Not Applicable Present on Admission: [] Yes [] No [] Clinically Undetermined Physician signature Date Please also document in your Progress Notes and/or Discharge Summary and indicate if the condition was present on admission. MTDD
[2019-05-17 08:00] VITALS: BP 145/86
[2019-05-17] MEDS: Levodopa/Carbidopa 25/100 tab GT SCH ×3 (09:43→18:26)
[2019-05-17] MEDS: Lisinopril 10mg tab GT SCH ×2 (09:43→18:26)
[2019-05-17 12:00] VITALS: BP 142/82
--- NOTE | 2019-05-17 12:09 | NUR ---
RD ASSESSMENT & RECOMMENDATIONS SEE CARE ACTIVITY FOR COMPLETE ASSESSMENT DAILY ESTIMATED NEEDS: Needs based on ESRD, on HD/ 61kg 30-35 kcals/kg 6484-6047 total kcals 1.2-1.8 g protein/kg 73-109 g total protein 20-22 mL/kg 3321-9419 total fluid mLs NUTRITION DIAGNOSIS: * Swallowing difficulty R/T dysphagia as evidenced by PEG dep, BUN PANNER eval pending for possible oral diet. * Increased kcal/prot needs R/T ESRD, suspected progressive wt loss as evidenced by HD dependent, possble progressive wt loss of 31lbs/18.7% in 9 months. CURRENT TF:Glucerna 1.2 @ 50ml/hr x 24 hrs PO DIET RECOMMENDATIONS: IF ORAL DIET INDICATED -> RENAL, CCHO MED (Texture per BUN PANNER) ENTERAL NUTRITION RECOMMENDATIONS: Nepro @ 45ml/hr x 24 hrs to provide 1080ml, 1944kcal, 87g prot, 785ml free water * Rec TF change to Nepro * Initiate Nepro @ 25ml/hr x 6hrs, advance 10ml q 4-6 hrs as tolerated to goal rate * HOB Over 30 degrees/ water flush per MD Monitor for oral diet, need to adjust TF ADDITIONAL RECOMMENDATIONS: 1) Calibrated bedscale wt for accurate CBW Per SNF, HT=67" AQ=586vnw (May weight per SNF, exact date unknown) 2) F/p w/ BUN PANNER eval for possible oral diet, need to adjust TF 3) Monitor lytes and renal fxn closely- check phos and mag levels . . .
--- NOTE | 2019-05-17 15:20 | NUR ---
ST NOTES: REFERRED BY DR DR SOLITARIO FOR SWALLOW EVALUATION, SEE FULL REPORT DYSPHAGIA RISK FACTORS FOR THIS 74 Y.O.M.: ACUTE ISSUES: HTN MALIGNANCY, AMS, FLUID OVERLOAD, CRACKLES BOTH LOBES WITH POSSIBLE INFILTRATE BILATERALLY AND LARGE RIGHT PLEURAL EFFUSION ON RECENT CXR,ON ROOM AIR RESP RATE 18, ALBUMIN LOW 3.1, H/O DYSPHAGIA HAD RECENT GT, PD ON SINEMET NOW, MULTIPLE SCLEROSIS, DEMENTIA, EPILEPSY, MARASMIC KWASHIORKOR, COPD, RESP D/O, ESRD ? HD, PSYCH (MDD, SCHIZOPHRENIA), DM2, CHF. NO POLST/AD FOUND REGARDING TUBE FEEDING PREFERENCES. AT [facility] ON 10/10/18, PATIENT ON RENAL AND CCHO-MED REG TEXTURE DIET AND THIN LIQUIDS WITH NEPRO BID. AT SNF ON GT FEEDINGS OF GLUCERNA LIKE NOW. PATIENT SAYS HE WAS EATING AT SNF BUT NO ORAL GRAT SEEN IN SNF MEDICAL RECORDS SENT. THE PATIENT IS ALERT AND NOT VERY COOPERATIVE WITH OROMOTOR EXAM. HIS TONGUE WAS WHITE, PER RN, HE VOMITED RECENTLY. PATIENT HAD ADEQUATE OROMOTOR SKILLS FOR INTELLIGIBLE SPEECH AND HE IS EDENTULOUS. WILL HOLD ON PO TRIALS FOR MOD BARIUM SWALLOW STUDY DUE TO SILENT ASPIRATION RISK. INITIAL IMPRESSIONS: HIGH RISK FOR PERSISTENT AND WORSENED OROPHARYNGEAL DYSPHAGIA HIGH RISK FOR SILENT ASPIRATION GIVEN H/O DEMENTIA RECOMMENDATIONS: CONTINUE WITH NONORAL FEEDINGS (PEG) AND ORAL CARE COMPLETE MODIFIED BARIUM SWALLOW STUDY TO ASSESS SWALLOW, DETERMINE SILENT ASP RISK AND ETIOLOGY, AND ATTEMPT TRIAL TX TECHNIQUES SKILLED DYSPHAGIA MANAGEMENT AND TX AND COG-COM EVAL/TX EDUCATED/TRAINED PARAM PUENTES IN POSTED PRECAUTIONS FOR ASPIRATION WHEN TUBE FEEDINGS RUNNING AND ORAL CARE.
--- NOTE | 2019-05-17 15:31 | NUR ---
CASE MANAGEMENT:REVIEW 74 YR OLD MALE BIBA FROM [facility]: ESRD ON HD CC;. WAS FOUND UNRESPONSIVE AT SNF. SOB, COUGH AND CHEST CONGESTION SI:FLUID OVERLOAD 98.1 94 18 152/94 95% ON RA H/H-10.5/31.5 BUN+107 CR+4.7 GLUCOSE+144 TROPONIN(+) 0.059 IS: IV ZOSYN Q8HRS LEXAPRO GT QD LISINOPRIL GT BID ATIVAN GT Q6HRS : TO TELEMETRY
[2019-05-17 16:00] VITALS: BP 146/85
--- NOTE | 2019-05-17 16:00 | Consultation ---
DATE OF CONSULTATION: 05/17/2019 PULMONARY CONSULTATION CONSULTING PHYSICIAN: Angelo Hawkins M.D. REFERRING PHYSICIAN: Darrius Mane M.D. REASON FOR CONSULTATION: Pleural effusion. HISTORY OF PRESENT ILLNESS: This is a 74-year-old male with a history of psych disorder/snf resident who was brought to the hospital with shortness of breath and chest congestion. The patient is unable to provide any history. He states he is hungry and wants to eat. He was seen by Psychiatry as well. The patient is on chronic dialysis and apparently has missed dialysis although this information is not clear. PAST MEDICAL HISTORY: Notable for CHF, CAD, chronic anemia, diabetes mellitus, chronic dysphagia, BPH, depression, Parkinson, dementia. CURRENT MEDICATIONS: Include Zosyn, Colace, DuoNeb, Lexapro, Sinemet, Zestril, Ativan, midodrine. ALLERGIES: None reported. 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 REVIEW OF SYSTEMS: Unreliable. PHYSICAL EXAMINATION: GENERAL: Revealed a 74-year-old male. VITAL SIGNS: Blood pressure 140/80, heart rate 94, respirations , afebrile, O2 saturation 95% on 2 L of oxygen, 95% also on room air. HEENT: Unremarkable. CHEST: Showed decreased breath sounds on right base. ABDOMEN: Soft. EXTREMITIES: There is no edema. LABORATORY DATA: Chemistry is notable for creatinine 4.7, hemoglobin A1c 6.5, alkaline phosphatase 123. Troponin 0.05. Sodium 135. White count normal, hemoglobin 10. IMAGING STUDIES: The patient underwent a chest x-ray, which shows a large right effusion. IMPRESSION: 1. Large right pleural effusion. 2. ESRD, on dialysis. 3. CHF. DISCUSSION: Agree with admission and care. The patient needs dialysis. At this time, his effusion is fairly asymptomatic. I will therefore not advocate thoracentesis. This may be trapped lung and has a risk of pneumothorax, we will follow carefully. Angelo Hawkins M.D. DR: ALICIA JOB#: [id number] CC:
--- NOTE | 2019-05-17 19:27 | NUR ---
HAND-OFF: Report given to Niurka VIRGEN.
--- NOTE | 2019-05-17 19:30 | NUR ---
NURSE NOTES: Received report from PARAM Ram. Patient is awake, lying in ware's position; resting comfortably. A/Ox2. No signs of pain nor acute distress noted. Checked IV site and flushed. No erythema, bleeding or infiltration noted. G tube patent with gastric residual of 15ml, tube feeding of Glucerna 1.2 @ 50mls/hr and tolerating well. With suprapubic catheter draining well to gravity. Bed at lowest position, brakes on, [id number]. Call light within reach. Will continue to monitor. Addendum: 05/18/19 at 0125 by Niurka Salas RN With tunneled catheter at [facility] for hemodialysis.
[2019-05-17 20:00] VITALS: BP 142/71
--- NOTE | 2019-05-17 22:49 | Psych Consult Progress Note ---
Psychiatry Progress Note Psychiatry Progress Note Medications Current Medications Medications (Trade) Dose Ordered Sig/Thu Route PRN Reason Start Time Stop Time Status Last Admin Dose Admin Acetaminophen (Tylenol) 650 mg Q4H PRN GT Mild Pain/Temp > 100.5 05/16/19 14:45 06/15/19 14:44 Albuterol/ Ipratropium (Albuterol/ Ipratropium) 3 ml Q4H PRN HHN Shortness of Breath 05/16/19 14:45 05/21/19 14:44 Carbidopa/Levodopa (Sinemet 25/100) 1 tab THREE TIMES A DAY GT 05/16/19 18:00 06/15/19 17:59 05/17/19 18:26 Dextrose (Dextrose 50%) 25 ml Q30M PRN IV Hypoglycemia 05/16/19 14:45 06/15/19 14:44 Dextrose (Dextrose 50%) 50 ml Q30M PRN IV Hypoglycemia 05/16/19 14:45 06/15/19 14:44 Docusate Sodium (Colace) 100 mg DAILYPRN PRN GT Constipation 05/16/19 14:45 06/15/19 14:44 Escitalopram Oxalate (Lexapro) 10 mg DAILY ORAL 05/17/19 09:00 06/16/19 08:59 05/17/19 09:43 Insulin Aspart (NovoLOG) EVERY 6 HOURS SUBQ 05/16/19 18:00 06/15/19 16:29 05/17/19 18:28 Lisinopril (ZestriL) 10 mg BID GT 05/16/19 18:00 06/15/19 17:59 05/17/19 18:26 Lorazepam (Ativan) 0.5 mg EVERY 6 HOURS ORAL 05/16/19 18:00 05/23/19 17:59 05/17/19 18:26 Midodrine (Pro-Amatine) 2.5 mg TIDPRN PRN ORAL Hypotenstion 05/16/19 16:45 06/15/19 14:44 Piperacillin Sod/ Tazobactam Sod 2.25 gm/Dextrose 55 ml @ 110 mls/hr Q8HR IV 05/16/19 22:00 05/21/19 21:59 05/17/19 21:06 Sennosides (Senokot) 17.2 mg DAILYPRN PRN GT Constipation 05/16/19 14:45 06/15/19 14:44 Allergies: Coded Allergies: NO KNOWN DRUG ALLERGIES (Unverified Allergy, Unknown, 04/11/14) Objective Data Height (Feet): 5 Height (Inches): 8.00 Weight (Pounds): 129 Paulina Krishnan MD May 17, 2019 22:49
[2019-05-18] VITALS: BP 150/77
--- NOTE | 2019-05-18 01:15 | Progress Note ---
DATE: 05/17/2019 SUBJECTIVE: This is an elderly male currently sitting in bed, , otherwise looks much better. OBJECTIVE: VITAL SIGNS: Stable. CHEST: Bilaterally few crackles. CARDIOVASCULAR: Regular rhythm. ABDOMEN: Soft. EXTREMITIES: CCE. ASSESSMENT AND PLAN: 1. Fluid overload. 2. CHF. 3. Hypertension. 4. Dysphagia. We will order swallow evaluation and tube feeding. Continue current treatment. Continue hemodialysis. Terry Mane M.D. DR: ANGELINE JOB#: [id number] CC:
--- NOTE | 2019-05-18 02:45 | NUR ---
NURSE NOTES: received patient via hospital bed from tele accompanied by evangelina singh. with YOUSIF 22 g, saline lock. with gt in placed running glucerna 1.2 at 50 ml/s hr. with an order of free water flush 0f 150 ml/6 hrs. with tunneled hd catheter on the left upper chest. with intact dressing, no drainage or bleeding noted. with suprapubic catheter in placed draining a light yellow urine. verbally responsive. hungarian speaking. per elvin, the patient is with a dx of ESRD but with no order of dialysis yet. charge nurse made aware.bed locked and in lowest position. keep head of bed elevated. call light and light button within easy reach. will continue plan of care.
--- NOTE | 2019-05-18 02:45 | NUR ---
TRANSFER TO FLOOR: Patient transferred to 4E via hospital bed accompanied by 2 staff member. Tele box off and tolerating well. Report given to PARAM Wilkins. Patient has no belongings. Medications given to PARAM Wilkins. Family and or S/O informed of transfer.
[2019-05-18] MEDS ORDERED: Albuterol/Ipratropium 3ml neb HHN PRN (03:15)
[2019-05-18] MEDS ORDERED: Docusate 100mg/10ml Liq GT PRN (03:15)
[2019-05-18] MEDS ORDERED: Sennosides 8.6mg tab GT PRN (03:15)
[2019-05-18 03:59] VITALS: BP 155/98
[2019-05-18] MEDS: Piperacillin/Tazobactam 2.25 GM in D5W 55 ML IV SCH ×2 (05:20→13:34)
[2019-05-18] MEDS: LORazepam 0.5mg tab ORAL SCH ×3 (05:20→18:01)
[2019-05-18] MEDS: NovoLOG Insulin Flexpen SUBQ SCH ×3 (05:23→17:57)
[2019-05-18] MEDS ORDERED: Acetaminophen 650mg/20.3ml GT PRN (06:45)
--- NOTE | 2019-05-18 07:23 | NUR ---
HAND-OFF: Report given to evangelina arriaga. endorsed that the pt is fall risk. endorsed to monitor and ensure safety.
--- NOTE | 2019-05-18 07:24 | NUR ---
NURSE NOTES: Received patient in bed asleep. No SOB or acute distress. IV line intact and patent. Suprapubic catheter intact. HOB elevated. Bed locked in lowest position, bed alarm on high sensitive setting. Call light within reach. Side rails up. On close watch and frequent rounding. Will continue plan of care.
[2019-05-18 08:00] VITALS: BP 152/81
[2019-05-18] MEDS: Levodopa/Carbidopa 25/100 tab GT SCH ×3 (09:31→18:00)
[2019-05-18] MEDS: Lisinopril 10mg tab GT SCH ×2 (09:31→18:00)
[2019-05-18 11:53] VITALS: BP 155/98
--- NOTE | 2019-05-18 13:30 | NUR ---
NURSE NOTES: Patient moved to 404-1.
--- NOTE | 2019-05-18 14:03 | NUR ---
NURSE NOTES: Dr Mane made aware that patient has no nephro consult and no HD orders yet. Awaiting MD's response.
--- NOTE | 2019-05-18 15:26 | NUR ---
CASE MANAGEMENT:DISCHARGE PLAN NOTE PATIENT REFERRED BACK TO [facility]. CLINICALS FAXED. P: F: CALL MADE TO [facility] ADMISSIONS. PER ALLY, PATIENT ACCEPTED TO RETURN [address] [facility] Addendum: 05/18/19 at 1539 by ARI GARNER LVN LVN AMBULANCE TRANSPORTATION WITH [facility] EXT [id number] SCHEDULED FOR PATIENT WIG COMBER AT 1730 PM PER OSCAR
[2019-05-18 16:00] VITALS: BP 149/88
--- NOTE | 2019-05-18 16:07 | NUR ---
NURSE NOTES: For nephro consult with Dr Perdomo as per Dr Mane.
--- NOTE | 2019-05-18 16:11 | NUR ---
NURSE NOTES: For HD on outpatient basis as per Dr Mane.
--- NOTE | 2019-05-18 16:42 | NUR ---
DISCHARGE SWALLOW/SPEECH THERAPY SUMMARY: PATIENT SEEN FOR DYSPHAGIA, SEE SWALLOW EVAL REPORT AND RECOMMENDATIONS. PATIENT TO BE D/C TODAY. UNABLE TO HAVE MOD BARIUM SWALLOW STUDY TO ASSESS SWALLOW, DETERMINE SILENT ASP RISK, AND ATTEMPT TRIAL TX. PLAN: CONTINUE WITH NONORAL FEEDINGS AND ORAL CARE FOR NOW F/UP WITH SNF POWER SYSTEM ELECTRICAL ENGINEER FOR SKILLED DYSPHAGIA MANAGEMENT AND TX COMPLETE MOD BARIUM SWALLOW STUDY OUTPT AT ANOTHER HOSPITAL PRIOR TO PO TRIALS/MEALS DUE TO SILENT ASPIRATION RISK Addendum: 05/18/19 at 1643 by [facility] POWER SYSTEM ELECTRICAL ENGINEER STAFF EDUCATED/TRAINED IN POSTED ORAL CARE AND ASP PRECAUTIONS WHEN PEG FEEDINGS RUNNING.
--- NOTE | 2019-05-18 17:25 | NUR ---
NURSE NOTES: Patient is for discharge today to [facility], report given to Nava. Left message on Servando Pineda's voicemail (family member), awaiting callback. Ambulance ETA is 1730.
--- NOTE | 2019-05-18 17:43 | Pulmonology Progress Note ---
Assessment/Plan Assessment/Plan IMPRESSION: 1. Large right pleural effusion. 2. ESRD, on dialysis. 3. CHF. DISCUSSION: Agree with admission and care. The patient needs dialysis. At this time, his effusion is fairly asymptomatic. I will therefore not advocate thoracentesis. This may be trapped lung and has a risk of pneumothorax, we will follow carefully. Angelo Hawkins M.D. Subjective Interval Events: states he is feeling better Constitutional: Reports: no symptoms HEENT: Repors: no symptoms Respiratory: Reports: no symptoms Cardiovascular: Reports: no symptoms Gastrointestinal/Abdominal: Reports: no symptoms Allergies: Coded Allergies: NO KNOWN DRUG ALLERGIES (Unverified Allergy, Unknown, 04/11/14) Objective Last 24 Hour Vital Signs Date Time Temp Pulse Resp B/P (MAP) Pulse Ox O2 Delivery O2 Flow Rate FiO2 05/18/19 16:00 98.1 94 20 149/88 (108) 94 05/18/19 14:21 Room Air 05/18/19 11:53 97.9 99 18 155/98 (117) 94 05/18/19 09:31 152/81 05/18/19 09:00 Room Air 05/18/19 08:00 98.1 84 18 152/81 (104) 94 05/18/19 03:59 98.3 92 16 155/98 (117) 92 05/18/19 00:00 97.7 90 22 150/77 (101) 94 05/18/19 00:00 91 05/17/19 21:00 Room Air 05/17/19 20:00 96 05/17/19 20:00 97.9 93 20 142/71 (94) 95 05/17/19 18:26 146/85 Intake and Output 05/17/19 05/18/19 18:59 06:59 Intake Total 200 ml 600 ml Output Total 200 ml 350 ml Balance 0 ml 250 ml Intake Oral 0 ml Free Water 150 ml 450 ml Tube Feeding 50 ml 150 ml Output Urine Total 200 ml 350 ml General Appearance: no acute distress HEENT: normocephalic Respiratory/Chest: chest wall non-tender, decreased breath sounds Cardiovascular: normal peripheral pulses, normal rate Abdomen: normal bowel sounds Microbiology Date/Time Source Procedure Growth Status 05/16/19 17:30 Nasal Nares MRSA Culture - Final NO METHICILLIN RESISTANT STAPH AUREUS... Complete 05/16/19 17:30 Rectum VRE Culture - Final Enterococcus Faecalis - Vre Complete Current Medications Medications (Trade) Dose Ordered Sig/Thu Route PRN Reason Start Time Stop Time Status Last Admin Dose Admin Acetaminophen (Tylenol) 650 mg Q4H PRN GT Mild Pain/Temp > 100.5 05/18/19 06:45 06/15/19 14:44 Albuterol/ Ipratropium (Albuterol/ Ipratropium) 3 ml Q4H PRN HHN Shortness of Breath 05/18/19 03:15 05/21/19 03:14 Carbidopa/Levodopa (Sinemet 25/100) 1 tab THREE TIMES A DAY GT 05/18/19 09:00 06/15/19 17:59 05/18/19 12:18 Dextrose (Dextrose 50%) 25 ml Q30M PRN IV Hypoglycemia 05/18/19 03:15 06/15/19 14:44 Dextrose (Dextrose 50%) 50 ml Q30M PRN IV Hypoglycemia 05/18/19 03:15 06/15/19 14:44 Docusate Sodium (Colace) 100 mg DAILYPRN PRN GT Constipation 05/18/19 03:15 06/15/19 03:14 Escitalopram Oxalate (Lexapro) 10 mg DAILY GT 05/18/19 09:00 06/16/19 08:59 05/18/19 09:31 Insulin Aspart (NovoLOG) EVERY 6 HOURS SUBQ 05/18/19 06:00 06/15/19 16:29 05/18/19 11:44 Lisinopril (ZestriL) 10 mg BID GT 05/18/19 09:00 06/15/19 17:59 05/18/19 09:31 Lorazepam (Ativan) 0.5 mg EVERY 6 HOURS ORAL 05/18/19 06:00 05/23/19 17:59 05/18/19 11:07 Midodrine (Pro-Amatine) 2.5 mg TIDPRN PRN ORAL Hypotenstion 05/18/19 03:15 06/15/19 03:14 Piperacillin Sod/ Tazobactam Sod 2.25 gm/Dextrose 55 ml @ 110 mls/hr Q8HR IV 05/18/19 06:00 05/21/19 21:59 05/18/19 13:34 Sennosides (Senokot) 17.2 mg DAILYPRN PRN GT Constipation 05/18/19 03:15 06/15/19 03:14 Angelo Hawkins MD May 18, 2019 17:43
[2019-05-18 18:00] VITALS: BP 149/88
--- NOTE | 2019-05-18 18:30 | NUR ---
NURSE NOTES: O2 sat at 85%, RT administering breathing treatment. Hooked to O2 via nasal cannula at 5LPM, Luisa payne [facility], said she is ok to take patient while hooked to oxygen. Patient ID band removed, IV line removed. No belongings. No new skin issues noted. Discharged accompanied by ambulance personnel.
--- NOTE | 2019-05-18 19:31 | Progress Note ---
DATE: 05/18/2019 SUBJECTIVE: This is elderly male who came with altered mental status, but the patient is more awake. He wants to eat. It looks like he might possible to eat and pass the swallow eval, but waiting for speech therapy. Physically, he is doing better. Tolerating diet. We will start some pureed diet as well as some applesauce. The patient is physically doing better. He is going to go back to the senior living and going to have a dialysis as outpatient. Terry Mane M.D. DR: THIEN JOB#: [id number] CC:
--- NOTE | 2019-05-19 02:30 | Progress Note ---
DATE: 05/18/2019 SUBJECTIVE: The patient is doing well. noted. Calm and cooperative. MENTAL STATUS EXAMINATION: The patient is alert, oriented to self and place. Mood is neutral. Affect is flat. Thought process is concrete. Thought content, no suicidal or homicidal ideation. Cognition is impaired. Insight and judgment impaired. ASSESSMENT: Stable. PLAN: 1. We will continue current medications. 2. Provide the patient with reality orientation and supportive therapy. Paulina Krishnan M.D. DR: [place] JOB#: [id number] CC: ROCHELLE
--- NOTE | 2019-05-22 12:35 | Discharge Summary ---
Discharge Summary Discharge Summary _ DATE OF ADMISSION: 05/16/2019 DATE OF DISCHARGE: 05/18/2019 DISCHARGED BY: Dr. Mane REASON FOR ADMISSION: 74 years old male with past medical history of diabetes mellitus, hypertension, end-stage renal disease, on dialysis, depression, dementia, resident of [facility], dysphagia, G-tube, presented with a complaint of shortness of breath , cough and congestion. Report from the nursing facility stated that patient had increased cough and appeared to be short of breath. Upon evaluation vital signs were stable. Laboratory work-up revealed no leukocytosis , hemoglobin 10.5, hematocrit 31.5. BUN 107, creatinine 4.7. Glucose 144. Hemoglobin A1c 6.5. Chest x-ray revealed large right pleural effusion. Bilateral diffuse interstitial and airspace edema versus infiltrate, new since the last study. Patient subsequently admitted for further management CONSULTANTS: pulmonary Dr. Hawkins psychiatrist [facility]: Patient admitted to medical surgical floor. Shop Blacksmith seen and evaluated patient. Per flat lock operator patient needed dialysis. Pleural effusion was fairly asymptomatic. Shop Blacksmith did not advocate for thoracentesis. It may be a trapped lung and carry a risk for pneumothorax. Shop Blacksmith advised to follow-up carefully. Strict aspiration precaution maintained. G-tube feeding continued. Supplemental oxygen was on board as needed to keep oximetry above 92%. Pulse ox initially was stable on room air. SNF medication continued. GI prophylaxis provided. Per psychiatrist , patient had major depressive disorder and cognitive impairment. Patient started on Lexapro. Patient clinically stabilized and was ready for discharge to [facility] facility. Pulse oximetry was stable on room air. No fever. No evidence of infectious process. Continue with hemodialysis as outpatient FINAL DIAGNOSES: CHF Fluid overload Large right pleural effusion End-stage renal disease ,on hemodialysis Altered mental status Major depressive disorder Cognitive impairment DISCHARGE MEDICATIONS: See Medication Reconciliation list. DISCHARGE INSTRUCTIONS: Patient was discharged to the [facility] facility. Follow-up with the medical doctor at the facility. Follow-up with the dialysis as scheduled. I have been assigned to dictate discharge summary for this account. I was not involved in the patient's management. Lissette Pina NP May 22, 2019 12:35
--- NOTE | 2019-05-24 12:38 | Coder Physician Query ---
Clarification is required for compliance, coding accuracy, and to reflect severity of illness for this patient Dear Dr Mane Date: 05/24/2019 Power Marketer/CDS Name: TAYA LEWIS Presented with a complaint of shortness of breath , cough and congestion. Report from the nursing facility stated that patient had increased cough and appeared to be short of breath. FINAL DIAGNOSES: CHF Fluid overload Large right pleural effusion End-stage renal disease ,on hemodialysis Please Clarify the CHF if known ( no labs or echo performed): Acuity [] Acute [] Chronic [] Acute on Chronic Type [] Systolic [] Diastolic [] Systolic & Diastolic (Combined) [] Other: Physician signature Date Please also document in your Progress Notes and/or Discharge Summary and indicate if the condition was present on admission. ROCHELLE
== END 2019-05-18 18:56 | DRG 640 ==
LOC: EDBD 09:28 → EMR 09:47 → EDBEDREQ 12:15 → 2E 13:10 → 4E 05-18 02:48
DX: E87.70 Fluid overload, unspecified (principal); N18.6 End stage renal disease; G93.41 Metabolic encephalopathy; Z43.1 Encounter for attention to gastrostomy; I13.2 Hypertensive heart and chronic kidney disease with heart failure and with stage 5 chronic kidney disease, or end stage renal disease; I50.9 Heart failure, unspecified; F03.90 Unspecified dementia, unspecified severity, without behavioral disturbance, psychotic disturbance, mood disturbance, and anxiety; Z99.2 Dependence on renal dialysis; F20.9 Schizophrenia, unspecified; F32.9 Major depressive disorder, single episode, unspecified; E11.22 Type 2 diabetes mellitus with diabetic chronic kidney disease; R13.10 Dysphagia, unspecified; I25.2 Old myocardial infarction; G20 Parkinson's disease; F02.80 Dementia in other diseases classified elsewhere, unspecified severity, without behavioral disturbance, psychotic disturbance, mood disturbance, and anxiety; N40.0 Benign prostatic hyperplasia without lower urinary tract symptoms
CPT/HCPCS: 36415; 71045; 80053; 82962; 83036; 83690; 84484; 85025; 87081; 93005; 99285; J1815; J7620